=== PATIENT | female | born 1940 | race Caucasian/White ===

== ENCOUNTER 2016-08-10 13:08 | Emergency (ER) | payer MEDICARE ==
[2016-08-10 16:08] LABS: Hematocrit 37 % (35-47); Hemoglobin 12.1 g/dl (12.0-16.0); Mean Corpuscular HGB Conc 33 g/dl (31-36); Mean Corpuscular Hemoglobin 28 pg (27-31); Mean Corpuscular Volume 85 fL (80-97); Mean Platelet Volume 10 um3 (7.4-10.4); Red Blood Count 4.38 10^6/ul (4.0-5.4); Red Cell Distribution Width 14 % (10.5-15); White Blood Count 7.6 10^3/ul (3.5-10.8)
[2016-08-10 16:16] LABS: BUN/Creatinine Ratio 23.3 (8-20); Calcium 9.5 mg/dL (8.6-10.3); EGFR African American 82.3 (>60); Globulin 3.4 g/dL (2-4); Potassium 3.8 mmol/L (3.5-5.0); Total Bilirubin 0.6 mg/dL (0.2-1.0); Total Protein 7.4 g/dL (6.4-8.9)
[2016-08-10 16:18] LABS: Troponin I 0.01 ng/mL (<0.04)
--- NOTE | 2016-08-10 16:24 | RAD ---
INDICATION: Chest pain. COMPARISON: Comparison is made with a prior chest x-ray study from October 01, 2014. TECHNIQUE: A portable view of the chest was obtained. FINDINGS: There is a multilead transvenous cardiac pacemaker present. The heart is within normal limits in size for this portable exam. The lungs are clear. No pleural effusion is seen. The patient is status post right shoulder arthroplasty. IMPRESSION: NO EVIDENCE FOR ACUTE DISEASE.
[2016-08-10] MEDS ORDERED: HYDROcodone/ACETAMIN 5-325 MG* 1 TAB PO ONE (16:49)
[2016-08-10 17:19] VITALS: BP 155/73
--- NOTE | 2016-08-10 17:25 | ED ---
Yareli Burleson Matthew, scribed for Abe Lorenz MD on 08/10/16 at 1551 . HPI Chest Pain - HPI Summary HPI Summary: A 76 y/o female presents to the ED with left sided chest pain since 20:00 that lasted for an hour and has since resolved. The pain radiated to her back and into her throat. She was watching TV when the pain began. She called Dr. Frazier who told the patient she should presented to the ED to have her blood drawn. She slept throughout the night once the pain subsided. She has a Hx of esophageal spasms, and states the pain felt similar to those episodes, but this episoded last much longer. During the episode, she drank diaz bryant and gas-X and after an hour the symptoms subsided. Associated symptoms at the time include bilateral arm numbness and dizziness. She denies SOB. The patient has also been having intermittent dizziness for the past 4 days, which worsens with standing and described as vertigo. She's also been having diffuse headache since a week ago that increased in frequency approximately 3 months ago. She occasionally has numbness arm numbness. The patient had a shoulder replacement of the right shoulder approximately 3 months ago. - History of Current Complaint Chief Complaint: EDChestPainROMI Hx Obtained From: Patient Onset/Duration: Started Days Ago, Atraumatic, Resolved Time of Onset: 20:00 - yesterday Timing: Lasting Hours - 1 Initial Severity: Moderate Current Severity: None Chest Pain Location: Mid Sternal, Left Lateral Chest Pain Radiates: Yes Chest Pain Radiates To:: Back, Neck Aggravating Factor(s): Nothing Alleviating Factor(s): Spontaneous Resolution Associated Signs and Symptoms: Positive: Chest Pain, Headaches, Numbness - bilateral arm, Dizziness. Negative: Shortness of Breath, Swelling, Calf Pain/ Swelling - Allergy/Home Medications Allergies/Adverse Reactions: Allergies Allergy/AdvReac Type Severity Reaction Status Date / Time Adhesive Tape Allergy Intermediate Rash Verified 06/28/15 12:23 Penicillins Allergy Intermediate Rash Verified 06/28/15 12:23 Sulfa Drugs Allergy Intermediate Rash Verified 06/28/15 12:23 Erythromycin Allergy Unknown Unknown Verified 06/28/15 12:23 Reaction Details Meperidine [From Demerol HCl] Allergy Unknown Unknown Verified 06/28/15 12:23 Reaction Details Nortriptyline Allergy Unknown Unknown Verified 06/28/15 12:23 Reaction Details Propoxyphene [From Darvon] Allergy Unknown Unknown Verified 06/28/15 12:23 Reaction Details Tetanus Toxoid Allergy Unknown Unknown Verified 06/28/15 12:23 Reaction Details Acetaminophen Allergy Altered Verified 08/10/16 13:21 [From Oxycodone Mental W/Acetaminophen] Status Beta Adrenergic Blockers Allergy Unknown Verified 06/28/15 12:23 Reaction Details Lidocaine [From Lidoderm] Allergy Unknown Verified 06/28/15 12:23 Reaction Details Oxycodone Allergy Altered Verified 08/10/16 13:21 [From Oxycodone Mental W/Acetaminophen] Status NSAIDs AdvReac 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 PMH/Surg Hx/FS Hx/Imm Hx Endocrine/Hematology History: Reports: Hx Anticoagulant Therapy, Hx Thyroid Disease - HYPOTHYROID Denies: Hx Diabetes Cardiovascular History: Reports: Hx Auto Implanted Cardiovert Defib, Hx Hypertension - on meds, Hx Pacemaker/ICD - 3, Other Cardiovascular Problems/Disorders - SVT Respiratory History: Denies: Hx Asthma, Hx Chronic Obstructive Pulmonary Disease (COPD) GI History: Denies: Hx Ulcer History: Reports: Hx Renal Disease, Other Problems/Disorders - GERD Musculoskeletal History: Denies: Hx Osteoporosis, Other Musculoskeletal History - Cancer History Hx Chemotherapy: No Hx Radiation Therapy: No Infectious Disease History: Denies: Hx Hepatitis, Hx Human Immunodeficiency Virus (HIV), Traveled Outside the [place] in Last 30 Days - Family History Family History: No FHx of breast CA - Social History Alcohol Use: Rare Substance Use Type: Reports: None Smoking Status (MU): Never Smoked Tobacco Review of Systems Constitutional: Negative Eyes: Negative ENT: Negative Positive: Chest Pain Negative: Shortness Of Breath Gastrointestinal: Negative Genitourinary: Negative Positive: Decreased ROM - right shoulder s/p shoulder replacement . Negative: Edema - pedal Skin: Negative Neurological: Other - Dizziness Positive: Headache Psychological: Normal All Other Systems Reviewed And Are Negative: Yes Physical Exam Triage Information Reviewed: Yes Vital Signs On Initial Exam: Initial Vitals Temp Pulse Resp BP Pulse Ox 98.5 F 74 16 139/70 98 08/10/16 13:10 08/10/16 13:10 08/10/16 13:10 08/10/16 13:10 08/10/16 13:10 Vital Signs Reviewed: Yes Appearance: Positive: Well-Appearing, No Pain Distress Skin: Positive: Warm, Skin Color Reflects Adequate Perfusion, Dry Eyes: Positive: EOMI, ESTEFANY ENT: Positive: Normal ENT inspection Neck: Positive: Supple, Nontender Respiratory/Lung Sounds: Positive: Clear to Auscultation, Breath Sounds Present Cardiovascular: Positive: RRR Abdomen Description: Positive: Nontender, Soft Musculoskeletal: Positive: Normal, Strength/ROM Intact Neurological: Positive: Normal, Sensory/Motor Intact, Alert, Oriented to Person Place, Time Psychiatric: Positive: Normal, Affect/Mood Appropriate - Jackson Coma Scale Coma Scale Total: 15 Diagnostics - Vital Signs Vital Signs Temp Pulse Resp BP Pulse Ox 08/10/16 13:36 149/77 08/10/16 13:10 98.5 F 74 16 139/70 98 - Laboratory Lab Results: Lab Results 08/10/16 08/10/16 Range/Units 14:00 14:00 WBC 7.6 (3.5-10.8) 10^3/ul RBC 4.38 (4.0-5.4) 10^6/ul Hgb 12.1 (12.0-16.0) g/dl Hct 37 (35-47) % MCV 85 (80-97) fL MCH 28 (27-31) pg MCHC 33 (31-36) g/dl RDW 14 (10.5-15) % Plt Count 268 (150-450) 10^3/ul MPV 10 (7.4-10.4) um3 Neut % (Auto) 60.8 (38-83) % Lymph % (Auto) 22.0 L (25-47) % [place] % (Auto) 14.9 H (1-9) % Eos % (Auto) 1.7 (0-6) % Baso % (Auto) 0.6 (0-2) % Absolute Neuts (auto) 4.6 (1.5-7.7) 10^3/ul Absolute Lymphs (auto) 1.7 (1.0-4.8) 10^3/ul Absolute Monos (auto) 1.1 H (0-0.8) 10^3/ul Absolute Eos (auto) 0.1 (0-0.6) 10^3/ul Absolute Basos (auto) 0 (0-0.2) 10^3/ul Absolute Nucleated RBC 0 10^3/ul Nucleated RBC % 0 Sodium 137 (133-145) mmol/L Potassium 3.8 (3.5-5.0) mmol/L Chloride 102 (101-111) mmol/L Carbon Dioxide 30 (22-32) mmol/L Anion Gap 5 (2-11) mmol/L BUN 20 (6-24) mg/dL Creatinine 0.86 (0.51-0.95) mg/dL Est GFR ( Amer) 82.3 (>60) Est GFR (Non-Af Amer) 64.0 (>60) BUN/Creatinine Ratio 23.3 H (8-20) Glucose 98 (70-100) mg/dL Calcium 9.5 (8.6-10.3) mg/dL Total Bilirubin 0.60 (0.2-1.0) mg/dL AST 23 (13-39) U/L ALT 17 (7-52) U/L Alkaline Phosphatase 122 H (34-104) U/L Troponin I 0.01 (<0.04) ng/mL Total Protein 7.4 (6.4-8.9) g/dL Albumin 4.0 (3.2-5.2) g/dL Globulin 3.4 (2-4) g/dL Albumin/Globulin Ratio 1.2 (1-3) Result Diagrams: 08/10/16 14:00 08/10/16 14:00 Lab Statement: Any lab studies that have been ordered have been reviewed, and results considered in the medical decision making process. - Radiology CXR Xray Interpretation: No Acute Changes Radiology Interpretation Completed By: Radiologist - EKG 13:36 Cardiac Rate: NL - 79 bpm EKG Interpretation: Dual Paced Rhythm Chest Pain Course/Dx - Course Course Of Treatment: Ms. Davis presented with the C/O CP ast evening lasting about an hour. It felt to her like the pain she has had in the past with esophageal spasm only longer although she does admit that she waited a lot longer before taking the Gas-X which usually helps her spasm. She had no associated symptoms and has had no pain today. Her W/U for CP here was negative and I will send her home to F/U with Dr. Frazier. Her shoulder has been bothering her for weeks and she could not tolerate the percocet she had been prescribed by her surgeon because of hallucinations and ultram did not help. I will try hydrocodone and she has an appointment with the surgeon tomorrow. - Diagnoses Provider Diagnoses: Chest pain - Provider Notifications Discussed Care Of Patient With: Dr. Lomeli (Cardologist) at 16:31 -- Notified of patient's history. Discharge - Discharge Plan Condition: Stable Disposition: HOME Patient Education Materials: Chest Pain (ED) Referrals: Piyush Frazier MD [Medical Doctor] - 3 Days Additional Instructions: Please follow-up with Dr. Frazier in 3 days. The documentation as recorded by the Yareli velazquez Matthew accurately reflects the service I personally performed and the decisions made by me, Abe Lorenz MD.
== END 2016-08-10 17:20 | disposition home or self-care (01) ==
LOC: ED 13:08
DX: R07.9 Chest pain, unspecified (principal); M25.511 Pain in right shoulder; Z88.0 Allergy status to penicillin; Z88.2 Allergy status to sulfonamides; E03.9 Hypothyroidism, unspecified; Z95.810 Presence of automatic (implantable) cardiac defibrillator; Z79.01 Long term (current) use of anticoagulants; K21.9 Gastro-esophageal reflux disease without esophagitis
CPT/HCPCS: 36415; 71010; 80053; 84484; 85025; 93005; 99283

== ENCOUNTER 2016-10-11 14:04 | Emergency (ER) | payer MEDICARE ==
[2016-10-11 14:32] VITALS: BP 112/75
--- NOTE | 2016-10-11 15:01 | UC ---
Upper Extremity HPI - HPI Summary HPI Summary: Irritated rash in R axillary region for about a week. Had similar rash under breasts last fall after surgery, also had one in low abdominal fold in mid Aug. Was Rx clotrimazole in Aug, but states it didn't help with abdominal rash. Denies fever, drainage, or other new symptoms. Has had very limited ROM in R shoulder for more than 10 years, still cannot lift arm at all since shoulder replacement in April 2016. Does not use deodorant, tries powder sometimes. Tried gold liu powder when rash started s effect. - History of Current Complaint Chief Complaint: WOLFGANGkin Stated Complaint: RASH COMPLAINT Time Seen by Provider: 10/11/16 14:26 Hx Obtained From: Patient ?: No Onset/Duration: Gradual Onset, Lasting Days Severity Initially: Mild Severity Currently: Mild Location Of Pain: Is Discrete @ Character: Dull, Burning Alleviating Factor(s): Nothing Related History: Immobility - Allergies/Home Medications Allergies/Adverse Reactions: Allergies Allergy/AdvReac Type Severity Reaction Status Date / Time Adhesive Tape Allergy Intermediate Rash Verified 06/28/15 12:23 Penicillins Allergy Intermediate Rash Verified 06/28/15 12:23 Sulfa Drugs Allergy Intermediate Rash Verified 06/28/15 12:23 Erythromycin Allergy Unknown Unknown Verified 06/28/15 12:23 Reaction Details Meperidine [From Demerol HCl] Allergy Unknown Unknown Verified 06/28/15 12:23 Reaction Details Nortriptyline Allergy Unknown Unknown Verified 06/28/15 12:23 Reaction Details Propoxyphene [From Darvon] Allergy Unknown Unknown Verified 06/28/15 12:23 Reaction Details Tetanus Toxoid Allergy Unknown Unknown Verified 06/28/15 12:23 Reaction Details Beta Adrenergic Blockers Allergy Unknown Verified 06/28/15 12:23 Reaction Details Lidocaine [From Lidoderm] Allergy Unknown Verified 06/28/15 12:23 Reaction Details Oxycodone Allergy Altered Verified 08/10/16 13:21 [From Oxycodone Mental W/Acetaminophen] Status NSAIDs AdvReac 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 Home Medications: Home Medications Hypromellose (Ophth) [Systane Overnight Therapy] 1 applic OPHTHALMIC BEDTIME 09/24 [History Confirmed 10/11/16] Light Mineral Oil-Mineral Oil [Retaine Mgd 0.5-0.5 %] 1 drop OPHTHALMIC QID 09/24 [History Confirmed 10/11/16] PMH/Surg Hx/FS Hx/Imm Hx Endocrine History Of: Reports: Thyroid Disease - HYPOTHYROID Denies: Diabetes Cardiovascular History Of: Reports: Cardiac Disorders - TACHYCARDIA; A-FIB, Hypertension - on meds, Pacemaker/ICD - 09/30/14 Respiratory History Of: Denies: COPD, Asthma GI/ History Of: Reports: Renal Disease Denies: Ulcer Cancer History Of: Denies: Breast Cancer Other History Of: Anticoagulant Therapy - Surgical History Surgical History: None Surgery Procedure, Year, and Place: PACEMAKER-; HYSTERECTOMY; TURMOR REMOVED RIGHT FEMOR; RIGHT PARTIAL SHOULDER REPLACEMENT. - Family History Known Family History: Positive: Unknown Family History: No FHx of breast [place] - Social History Alcohol Use: Rare Substance Use Type: None Smoking Status (MU): Never Smoked Tobacco - Immunization History Most Recent Tetanus Shot: unknown Review of Systems Constitutional: Negative Skin: Rash Eyes: Negative ENT: Negative Respiratory: Negative Cardiovascular: Negative Gastrointestinal: Negative Genitourinary: Negative Motor: Negative Neurovascular: Negative Musculoskeletal: Negative Neurological: Negative Psychological: Negative All Other Systems Reviewed And Are Negative: Yes Physical Exam Triage Information Reviewed: Yes Appearance: Well-Appearing, No Pain Distress, Well-Nourished Vital Signs: Initial Vital Signs Temp 98.6 F 10/11/16 14:18 Pulse 81 10/11/16 14:18 Resp 16 10/11/16 14:18 BP 112/75 10/11/16 14:18 Pulse Ox 99 10/11/16 14:18 Vital Signs Reviewed: Yes Eye Exam: Normal Eyes: Positive: Conjunctiva Clear ENT Exam: Normal ENT: Positive: Normal ENT inspection, Hearing grossly normal, Pharynx normal, TMs normal Dental Exam: Normal Neck exam: Normal Neck: Positive: Supple, Nontender, No Lymphadenopathy Respiratory Exam: Normal Respiratory: Positive: Chest non-tender, Lungs clear, Normal breath sounds, No respiratory distress, No accessory muscle use Cardiovascular Exam: Normal Cardiovascular: Positive: RRR, No Murmur Musculoskeletal: Positive: No Edema, ROM Limited @ - R shoulder Neurological Exam: Normal Psychological Exam: Normal Skin Exam: Other - red confluent area R axilla in skin fold with satellite lesions Upper Extremity Course/Dx - Differential Dx/Diagnosis Provider Diagnoses: R axillary skin candidiasis Discharge - Discharge Plan Condition: Stable Disposition: HOME Prescriptions: Nystatin CREAM* 1 applic TOPICAL BID #1 tube Patient Education Materials: Skin Yeast Infection (ED) Referrals: Jojo Clark MD [Primary Care Provider] - Additional Instructions: Look for clear improvement in your rash in the next week. If it is not getting better, or if it is getting worse, please see your primary care provider for a recheck.
== END 2016-10-11 15:17 | disposition home or self-care (01) ==
LOC: UCEAST 14:04
DX: B37.2 Candidiasis of skin and nail (principal); E03.9 Hypothyroidism, unspecified; R00.0 Tachycardia, unspecified; I48.91 Unspecified atrial fibrillation; Z79.01 Long term (current) use of anticoagulants; Z95.0 Presence of cardiac pacemaker; I10 Essential (primary) hypertension; Z96.611 Presence of right artificial shoulder joint; Z88.1 Allergy status to other antibiotic agents; Z88.5 Allergy status to narcotic agent; Z88.6 Allergy status to analgesic agent; Z88.0 Allergy status to penicillin; Z88.2 Allergy status to sulfonamides; Z88.7 Allergy status to serum and vaccine
CPT/HCPCS: 99212; G0463

== ENCOUNTER 2017-01-07 13:53 | Emergency (ER) | payer MEDICARE ==
[2017-01-07 14:12] VITALS: BP 128/80
--- NOTE | 2017-01-07 22:35 | UC ---
Skin Complaint HPI - HPI Summary HPI Summary: 76 YEAR OLD FEMALE PRESENTS WITH COMPLAINS OF RASH UNDER RIGHT ARM. - History of Current Complaint Chief Complaint: UCBackPain Time Seen by Provider: 01/07/17 14:27 Stated Complaint: WOUND UNDER ARM LOW BACK PAIN Pain Intensity: 0 Pain Scale Used: 0-10 Numeric - Allergy/Home Medications Allergies/Adverse Reactions: Allergies Allergy/AdvReac Type Severity Reaction Status Date / Time Adhesive Tape Allergy Intermediate Rash Verified 01/07/17 14:13 Penicillins Allergy Intermediate Rash Verified 01/07/17 14:13 Sulfa Drugs Allergy Intermediate Rash Verified 01/07/17 14:13 Erythromycin Allergy Unknown Unknown Verified 01/07/17 14:13 Reaction Details Meperidine [From Demerol HCl] Allergy Unknown Unknown Verified 01/07/17 14:13 Reaction Details Nortriptyline Allergy Unknown Unknown Verified 01/07/17 14:13 Reaction Details Propoxyphene [From Darvon] Allergy Unknown Unknown Verified 01/07/17 14:13 Reaction Details Tetanus Toxoid Allergy Unknown Unknown Verified 01/07/17 14:13 Reaction Details Beta Adrenergic Blockers Allergy Unknown Verified 01/07/17 14:13 Reaction Details Lidocaine [From Lidoderm] Allergy Unknown Verified 01/07/17 14:13 Reaction Details Oxycodone Allergy Altered Verified 01/07/17 14:13 [From Oxycodone Mental W/Acetaminophen] Status NSAIDs AdvReac Severe RENAL Verified 01/07/17 14:13 DISEASE Review of Systems Skin: Rash - UNDER RIGHT ARM All Other Systems Reviewed And Are Negative: Yes PMH/Surg Hx/FS Hx/Imm Hx Other History Of: Anticoagulant Therapy - Surgical History Surgical History: Yes Surgery Procedure, Year, and Place: PACEMAKER-1997/2012/2014; HYSTERECTOMY; TURMOR REMOVED RIGHT FEMOR; RIGHT PARTIAL SHOULDER REPLACEMENT. - Family History Known Family History: Positive: Unknown Family History: No FHx of breast CA - Social History Alcohol Use: Rare Substance Use Type: None Smoking Status (MU): Never Smoked Tobacco - Immunization History Most Recent Tetanus Shot: unknown Physical Exam Triage Information Reviewed: Yes Vital Signs: Initial Vital Signs Temp 36.7 C 01/07/17 14:08 Pulse 85 01/07/17 14:08 Resp 18 01/07/17 14:08 BP 128/80 01/07/17 14:08 Pulse Ox 95 06/30/17 14:08 Vital Signs Reviewed: Yes Eye Exam: Normal ENT Exam: Normal Dental Exam: Normal Neck exam: Normal Neck: Positive: 1 Respiratory Exam: Normal Cardiovascular Exam: Normal Abdominal Exam: Normal Musculoskeletal Exam: Normal Neurological Exam: Normal Psychological Exam: Normal Skin: Positive: rashes - ABRASION/SKIN EXCORIATION UNDER RIGHT ARM Course/Dx - Differential Diagnoses - Skin Complaint Differential Diagnoses: Eczema, Urticaria - Diagnoses Provider Diagnoses: RIGHT SKIN ABRASION Discharge - Discharge Plan Condition: Stable Disposition: HOME Prescriptions: DOXYcycline CAP(*) [DOXYcycline 100MG CAP(*)] 100 mg PO BID #14 cap Methocarbamol [Robaxin-750 MG TAB] 750 mg PO Q8HR PRN #90 tab PRN Reason: Spasms - Back Mupirocin 2% OINT* [Bactroban 2 % Oint*] 1 applic TOPICAL BID #1 tube Patient Education Materials: Acute Rash (ED) Referrals: Jojo Clark MD [Primary Care Provider] -
== END 2017-01-07 14:55 | disposition home or self-care (01) ==
LOC: UCEAST 13:53
DX: S40.811A Abrasion of right upper arm, initial encounter (principal); Z88.0 Allergy status to penicillin; Z88.7 Allergy status to serum and vaccine; Z88.2 Allergy status to sulfonamides; Z88.4 Allergy status to anesthetic agent; Z88.5 Allergy status to narcotic agent; Z95.0 Presence of cardiac pacemaker; Z96.611 Presence of right artificial shoulder joint
CPT/HCPCS: 99212; G0463

== ENCOUNTER 2017-07-02 12:57 | Emergency (ER) | payer MEDICARE ==
--- OUTSIDE RECORDS SUMMARY | 2017-07-02 13:52 | XMS REPORT ---
:1940 External Reference #:[id number] Author Organization [facility] Address [address] [place] [address] Phone [phone] Care Team Providers Name Role Phone Jojo Clark M.D. Primary Care Physician Unavailable Payers Type Date Identification Numbers Payment Provider Subscriber Medicare Primary Effective: Policy Number: Medicare - NGS Kina Davis 2004 [id number] Onset: 2007 PayID: [id number] [address] [place] [address] Medigap Part B Onset: 2007 Policy Number: [id number] [facility] Kina Davis PayID: [id number] [address] [place] [address] Problems Date Description Provider Status Onset: Atrial fibrillation Active Onset: Diffuse spasm of esophagus Active Onset: Hypothyroidism Active Onset: Anxiety Active Onset: Hypercholesterolemia Active Onset: Methicillin resistant Staphylococcus Active aureus infection Onset: Essential hypertension Active Onset: 11/11/2014 Fuchs' corneal dystrophy Pat Arteaga Active O.DKaryn Onset: 11/16/2014 Chronic allergic conjunctivitis Pat Arteaga Active O.DKaryn Onset: 11/16/2014 Tear film insufficiency Pat Arteaga Active O.DKaryn Onset: 11/16/2014 Hereditary corneal dystrophy Pat Arteaga Active O.DKaryn Onset: 11/18/2014 Pseudophakia Pat Arteaga Active O.DKaryn Onset: 11/28/2014 Minor opacity of cornea Pat Arteaga Active O.DKaryn Onset: 08/22/2015 Strabismic amblyopia Harleen Hand O.Garrett Onset: 03/08/2016 Punctate keratitis Harleen Hand OMarilyn Onset: 03/08/2016 Dystrophy of anterior cornea Harleen Hand O.D. Onset: 03/29/2016 Corneal opacity Harleen Hand O.Garrett Onset: 08/14/2016 Angular blepharoconjunctivitis Devika Grajeda O.D. 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 ETOH Use Denies alcohol use Smoking Patient has never smoked Daily Caffeine Does Not Consume Caffeine Allergies, Adverse Reactions, Alerts Date Description Reaction Status Severity Comments 11/11/2014 Penicillins active 11/11/2014 Sulfa Antibiotics active 11/11/2014 Erythromycin active 11/11/2014 Beta Adrenergic Blockers active 11/11/2014 Ibuprofen active 11/11/2014 Demerol active 11/11/2014 Latex active 11/11/2014 Restasis active 11/11/2014 Diovan active 11/11/2014 Codeine active 11/28/2014 Tape active 08/14/2016 Oxycodone active Medications Medication Date Status Form Strength Qnty SIG Indications Ordering Provider Systane 11/17/ Active Ointment every Pat J. Nighttime 2014 Arnoldo Arteaga Valacyclovir / Active Tablets 500mg Varn, HCL nne NOTEMAN Levothyroxine / Active Tablets 100mcg Cotton, Sodium Jojo M.Garrett Atorvastatin / Active Tablets 80mg Varn, Calcium e NOTEMAN Paroxetine HCL / Active Tablets 40mg Cotton, 0000 Jojo M.Garrett Atenolol / Active Tablets 25mg Frazier, 0000 Piyush M.DKaryn Coumadin / Active Tablets 5mg Qing, 0000 Tania BLANCO Multi Vitamin 00/ Active Tablets Unknown Daily 0000 Vitamin D / Active Tablets 1000Unit every Unknown 0000 day Famotidine / Active Tablets 40mg Butcher, 0000 Harvinder Ascencion, M.D. Systane / Active Gel 0.4-0.3% 1 drop Unknown 0000 both eyes twice a day Systane 12/12/ Hx Gel 0.4-0.3% every 3 Pat Mina 2017 - hours [place], 06/29/ O.D. 2017 Ciprofloxacin 08/14/ Hx Solution 0.3% 5ml 1 drop H10.523 Devika C. HCL 2017 - 3x/day Oltz, O.D. 08/24/ for 7 2016 days both eyes Lotemax 08/14/ Hx Ointment 0.5% 3.500g apply to H16.143 Devika CKaryn 2017 - m lower Nicci, O.D. 08/24/ eyelids 2016 and lashes at night for 1 week Retaine [facility] 03/25/ Hx Solution 0.5% Pat Mina 2015 - [place], 12/09/ O.D. 2016 Tobramycin-Dexa 11/11/ Hx Suspension 0.3-0.1% 10ml 1 drop 372.14 Pat Mina methasone 2014 - [place], 11/27/ both O.D. 2014 eyes Omeprazole / Hx Capsules DR 20mg Eduardo, 0000 - Jojo 10/12/ M.DKaryn 2016 Calcium 600 / Hx Tablets 600mg Unknown - 2015 Co Q 10 / Hx Capsules 60mg Unknown - 2015 Medications Administered in Office Medication Date Status Form Strength Qnty SIG Indications Ordering Provider Crizal Administered Injection Diallo 4 Silva, A.B.O. Vital Signs Date Vital Result Comment 03/29/2016 BP Systolic 110 mmHg BP Diastolic 65 mmHg Heart Rate 77 /min Respiratory Rate 16 /min 03/08/2016 BP Systolic 130 mmHg BP Diastolic 73 mmHg Heart Rate 70 /min Respiratory Rate 16 /min Results Description No Information Procedures Date CPT Code Description Status 06/20/2017 65943 Rescheduled Appointment Completed 12/15/2016 13035 Determination Of Refractive State Completed 10/15/2016 52128 Est Patient Comprehensive Exam Completed 08/14/2016 09004 Est Patient Intermediate Exam Completed 04/14/2016 45682 Est Patient Intermediate Exam Completed 03/29/2016 55685 Close Lacrimal Punctum, Plug Completed 03/08/2016 51834 Est Patient Comprehensive Exam Completed 03/08/2016 21403 Close Lacrimal Punctum, Plug Completed 08/22/2015 27050 Est Patient Comprehensive Exam Completed 02/19/2015 43391 Determination Of Refractive State Completed 02/19/2015 54391 Est Patient Comprehensive Exam Completed 11/11/2014 91894 Est Patient Intermediate Exam Completed 09/13/2014 25824 Est Patient Intermediate Exam Completed 09/13/2014 51940 Close Lacrimal Punctum, Plug Completed 09/13/2014 32288 Close Lacrimal Punctum, Plug Completed 08/23/2014 83952 Close Lacrimal Punctum, Plug Completed 08/23/2014 59068 Close Lacrimal Punctum, Plug Completed 08/23/2014 19988 Est Patient Intermediate Exam Completed 08/17/2014 15003 Est Patient Intermediate Exam Completed 08/10/2014 90449 Contact Lens For Treatment Of Ocular Surface Disease Completed 08/10/2014 11948 Contact Lens For Treatment Of Ocular Surface Disease Completed 08/10/2014 62785 Est Patient Intermediate Exam Completed 06/29/2014 77429 Contact Lens For Treatment Of Ocular Surface Disease Completed 06/29/2014 99635 Contact Lens For Treatment Of Ocular Surface Disease Completed 06/22/2014 34381 Est Patient Intermediate Exam Completed 06/22/2014 77199 Contact Lens For Treatment Of Ocular Surface Disease Completed 06/22/2014 34195 Contact Lens For Treatment Of Ocular Surface Disease Completed 06/10/2014 78703 Contact Lens For Treatment Of Ocular Surface Disease Completed 06/10/2014 36356 Contact Lens For Treatment Of Ocular Surface Disease Completed 06/03/2014 49957 Est Patient Intermediate Exam Completed 06/03/2014 607 Kimtech Wipes Completed 06/01/2014 47954 Contact Lens For Treatment Of Ocular Surface Disease Completed 06/01/2014 81633 Contact Lens For Treatment Of Ocular Surface Disease Completed 04/19/2014 31596 Determination Of Refractive State Completed 04/19/2014 88847 Est Patient Comprehensive Exam Completed 02/27/2013 48945 Remove Secondary Cataract, Laser (Yag) Completed 01/29/2013 22981 Est Patient Comprehensive Exam Completed 09/01/2012 40487 Est Patient Intermediate Exam Completed 08/02/2012 86191 Determination Of Refractive State Completed 08/02/2012 94310 Est Patient Comprehensive Exam Completed 01/19/2012 48530 Determination Of Refractive State Completed 01/19/2012 08797 Est Patient Intermediate Exam Completed 08/06/2011 79658 Est Patient Intermediate Exam Completed 07/21/2011 01960 Est Patient Comprehensive Exam Completed 07/21/2011 42064 Determination Of Refractive State Completed 06/28/2011 79561 Est Patient Intermediate Exam Completed 09/18/2010 50698 Est Patient Comprehensive Exam Completed 09/18/2010 53533 Close Lacrimal Punctum, Plug Completed 09/18/2010 519 Eyeglass Seed Packer Completed 02/27/2010 35052 Est Patient Intermediate Exam Completed 08/29/2009 22653 Determination Of Refractive State Completed 08/15/2009 52616 Est Patient Intermediate Exam Completed 12/27/2008 519 Eyeglass Seed Packer Completed 06/17/2008 516 Cod Liver Oil Tablets Completed 01/04/2008 19144 Est Patient Intermediate Exam Completed 11/01/2007 87674 Extracapsular Cataract Extraction W/Intraocular Lens Completed 10/19/2007 57154 Ophthalmic Biometry Completed 10/18/2007 54491 Extracapsular Cataract Extraction W/Intraocular Lens Completed 10/11/2007 84041 Ophthalmic Biometry Completed 08/30/2007 28546 Est Patient Comprehensive Exam Completed 08/26/2006 15045 Est Patient Comprehensive Exam Completed 08/26/2006 09789 Determination Of Refractive State Completed 12/29/2004 80567 Determination Of Refractive State Completed 12/29/2004 44879 Est Patient Comprehensive Exam Completed 01/23/2004 92028 Est Patient Intermediate Exam Completed 12/02/2003 28245 Fundus Photography With Interpretation And Report Completed 12/02/2003 84805 Est Patient Comprehensive Exam Completed 11/25/2003 113 Crizal Completed 11/13/2003 67015 Determination Of Refractive State Completed 11/13/2003 07706 Est Patient Comprehensive Exam Completed Encounters Type Date Location Provider CPT E/M Dx Office Visit 12/15/2016 Jose Miguel Baron MD, Pat Arteaga, 12669 H16.143 3:20p pc O.D. H18.59 Z96.1 H53.032 Office Visit 03/29/2016 1:20p Jose Miguel Baron MD, Pat Arteaga, 44646 H16.141 pc O.D. H17.89 Z96.1 Office Visit 11/28/2014 11:40a Jose Miguel Baron MD, Pat Arteaga, 03680 375.15 pc O.D. 371.50 371.01 Office Visit 11/18/2014 10:10a Jose Miguel Baron MD, Pat Arteaga, 71669 375.15 pc O.D. 372.14 371.50 V43.1 Office Visit 11/16/2014 1:00p Jose Miguel Baron MD, Pat Arteaga, 38678 372.14 pc O.D. 375.15 371.50 Office Visit 10/03/2014 11:00a Jose Miguel Baron MD, Pat Arteaga, 52774 371.57 pc O.D. 375.15 Office Visit 09/02/2014 10:40a Jose Miguel Baron MD, Pat Arteaga, 35010 371.57 pc O.D. Office Visit 07/15/2014 9:30a Jose Miguel Baron MD, Serg Roman.Garrett 10560 371.42 pc Office Visit 07/08/2014 11:15a Jose Miguel Baron MD, Devika Grajeda O.DKaryn 05334 371.42 pc Office Visit 06/29/2014 9:45a Jose Miguel Baron MD, Devika Grajeda O.D. 06552 371.42 pc Office Visit 06/15/2014 1:00p Jose Miguel Baron MD, Serg Roman.Garrett 99943 371.42 pc Office Visit 06/10/2014 1:15p Jose Miguel Baron MD, Serg Roman.Garrett 77072 371.42 pc Office Visit 06/01/2014 1:00p Jose Miguel Baron MD, Serg Roman.Garrett 54938 371.42 pc Office Visit 08/13/2011 3:30p Jose Miguel Baron MD, Pat Arteaga, 43381 372.30 pc O.D. Office Visit 01/04/2011 12:10p Jose Miguel Baron MD, Pat Arteaga, 79273 375.15 pc O.D. Office Visit 11/17/2010 1:30p Jose Miguel Baron MD, Esequiel Samaniego M.D. 50454 379.00 pc Office Visit 10/02/2010 2:10p Jose Miguel Baron MD, Pat Arteaga, 83664 375.15 pc O.D. Office Visit 08/29/2009 1:10p Jose Miguel Baron MD, Pat Arteaga, 07527 371.57 pc O.D. Office Visit 05/26/2009 1:30p Jose Miguel Baron MD, Abe Brown 00634 375.15 pc O.D. Office Visit 12/27/2008 10:00a Jose Miguel Baron MD, Pat Arteaga, 88042 373.12 pc O.D. Office Visit 06/17/2008 1:00p Jose Miguel Baron MD, Jose Miguel Baron M.D. 43729 375.15 pc Office Visit 05/23/2008 2:15p Jose Miguel Baron MD, Jose Miguel Baron M.D. 66610 370.20 pc Office Visit 05/07/2008 11:15a Jose Miguel Baron MD, Jose Miguel Baron M.D. 71845 375.15 pc Office Visit 01/11/2008 12:10p Jose Miguel Baron MD, Pat Arteaga, 13526 373.12 pc O.D. Office Visit 10/11/2007 10:15a Jose Miguel Baron MD, Jose Miguel Baron M.D. 38173 366.16 Plan of Care 07/01/2017 - Pat Arteaga O.D.H16.143 Punctate keratitis, bilateralComments:Smoking can increase the risk of developing or worsening any eye related disease, as well as affect your overall health. If you are a smoker , we strongly recommend that you quit.If you are not a smoker, we strongly recommend that you do not start. use gel drops 4 x day and Nighttime ointment at bedtime use a hot compress for 5-10 minutes with gentle lid massage at least 1 x dayFollow up:6 Month Follow Up At your next visit, we are not planning to dilate your eyes. However, if you haveany changes in your vision or new symptoms , there are certain situations that require us to dilate your eyes. If Dr. Arteaga requests any additional testing, that may require extra time. If you have any questions before your next appointment, please call our office at .H04.123 Dry eye syndrome of bilateral lacrimal vwyafpG14.59 Other hereditary corneal [id number] Presence of intraocular lensComments:The artificial lens implants in both eyes appear to be stable at this time.H53.032 Strabismic amblyopia, left eye
--- NOTE | 2017-07-02 14:20 | RAD ---
Indication: Right shoulder injury. 5 views of the right shoulder demonstrates right shoulder prosthesis in place. No loosening or hardware failure is noted. There is diffuse osteopenia noted. IMPRESSION: Right shoulder replacement in satisfactory position. Diffuse osteopenia is noted.
[2017-07-02 16:03] VITALS: BP 140/66
--- NOTE | 2017-07-02 17:25 | ED ---
Upper Extremity Pain - HPI Summary HPI Summary: Patient presents to the ED with CC of right shoulder pain s/p fall. Fall was witnessed and she denies LOC. at bedside. She has had 3 previous surgeries to the shoulder with most recently a backwards shoulder surgery. She notes to 5/10 pain and is concerned over a fracture. Complete shoulder replacement hardware to the right shoulder. She remains in PT and is unable to abduct the shoulder past 90 degrees at baseline. She is in NAD and takes tylenol for pain. - History of Current Complaint Chief Complaint: EDExtremityUpper Stated Complaint: FALL SHOULDER INJURY Time Seen by Provider: 07/02/17 14:27 Hx Obtained From: Patient Mechanism Of Injury: Blunt Trauma Onset/Duration: Started Hours Ago Timing: Constant Severity Initially: Mild Severity Currently: Mild Pain Location: Shoulder Character: Aching Aggravating Factor(s): Movement Alleviating Factor(s): Rest, Ice Associated Signs & Symptoms: Positive: Negative Related History: Dominant Hand Right, Immobility - Risk Factors DVT Risk Factors: Recent Surgery Septic Arthritis Risk Factor: Negative - Allergies/Home Medications Allergies/Adverse Reactions: Allergies Allergy/AdvReac Type Severity Reaction Status Date / Time Adhesive Tape Allergy Intermediate Rash Verified 01/07/17 14:13 Penicillins Allergy Intermediate Rash Verified 01/07/17 14:13 Sulfa Drugs Allergy Intermediate Rash Verified 01/07/17 14:13 Erythromycin Allergy Unknown Unknown Verified 01/07/17 14:13 Reaction Details Meperidine [From Demerol HCl] Allergy Unknown Unknown Verified 01/07/17 14:13 Reaction Details Nortriptyline Allergy Unknown Unknown Verified 01/07/17 14:13 Reaction Details Propoxyphene [From Darvon] Allergy Unknown Unknown Verified 01/07/17 14:13 Reaction Details Tetanus Toxoid Allergy Unknown Unknown Verified 01/07/17 14:13 Reaction Details Beta Adrenergic Blockers Allergy Unknown Verified 01/07/17 14:13 Reaction Details Lidocaine [From Lidoderm] Allergy Unknown Verified 01/07/17 14:13 Reaction Details Oxycodone Allergy Altered Verified 01/07/17 14:13 [From Oxycodone Mental W/Acetaminophen] Status NSAIDs AdvReac Severe RENAL Verified 01/07/17 14:13 DISEASE PMH/Surg Hx/FS Hx/Imm Hx Previously Healthy: Yes Endocrine/Hematology History: Reports: Hx Anticoagulant Therapy, Hx Thyroid Disease - HYPOTHYROID Denies: Hx Diabetes Cardiovascular History: Reports: Hx Auto Implanted Cardiovert Defib, Hx Hypertension - on meds, Hx Pacemaker/ICD - /, Other Cardiovascular Problems/Disorders - SVT Respiratory History: Denies: Hx Asthma, Hx Chronic Obstructive Pulmonary Disease (COPD) GI History: Denies: Hx Ulcer History: Reports: Hx Renal Disease, Other Problems/Disorders - GERD Musculoskeletal History: Denies: Hx Osteoporosis, Other Musculoskeletal History - Cancer History Hx Chemotherapy: No Hx Radiation Therapy: No - Surgical History Surgery Procedure, Year, and Place: PACEMAKER-1997/2012/2014; HYSTERECTOMY; TURMOR REMOVED RIGHT FEMOR; RIGHT PARTIAL SHOULDER REPLACEMENT. Infectious Disease History: No Infectious Disease History: Reports: Hx Shingles Denies: Hx Hepatitis, Hx Human Immunodeficiency Virus (HIV), Traveled Outside the [place] in Last 30 Days - Family History Known Family History: Positive: Unknown Family History: No FHx of breast CA - Social History Occupation: Unemployed Lives: With Family Alcohol Use: Rare Hx Substance Use: No Substance Use Type: Reports: None Hx Tobacco Use: No Smoking Status (MU): Never Smoked Tobacco Review of Systems Constitutional: Negative Negative: Fever, Chills, Fatigue Eyes: Negative Cardiovascular: Negative Gastrointestinal: Negative Genitourinary: Negative Positive: no symptoms reported, see HPI Positive: Arthralgia - right shoulder Skin: Negative Neurological: Negative All Other Systems Reviewed And Are Negative: Yes Physical Exam Triage Information Reviewed: Yes Vital Signs On Initial Exam: Initial Vitals Temp Pulse Resp BP Pulse Ox 97.2 F 85 17 127/69 96 07/02/17 13:10 07/02/17 13:10 07/02/17 13:10 07/02/17 13:10 07/02/17 13:10 Vital Signs Reviewed: Yes Appearance: Positive: Well-Appearing, No Pain Distress, Well-Nourished Skin: Positive: Skin Color Reflects Adequate Perfusion Head/Face: Positive: Normal Head/Face Inspection Eyes: Positive: EOMI, ESTEFANY, Conjunctiva Clear Neck: Positive: No Lymphadenopathy Respiratory/Lung Sounds: Positive: Clear to Auscultation, Breath Sounds Present Cardiovascular: Positive: RRR, Pulses are Symmetrical in both Upper and Lower Extremities Musculoskeletal: Positive: Pain @ - right shoulder/ unable to abduct past 90 degrees at baseline. no worsening today. Neurological: Positive: Speech Normal Psychiatric: Positive: Normal, Affect/Mood Appropriate AVPU Assessment: Alert - Jackson Coma Scale Coma Scale Total: 15 Diagnostics - Vital Signs Vital Signs Temp Pulse Resp BP Pulse Ox 07/02/17 16:02 98.1 F 75 18 140/66 100 07/02/17 13:10 97.2 F 85 17 127/69 96 - Laboratory Lab Statement: Any lab studies that have been ordered have been reviewed, and results considered in the medical decision making process. Course/Dx - Course Course Of Treatment: IMPRESSION: Right shoulder replacement in satisfactory position. Diffuse osteopenia is. noted. She notes to pain in the right shoulder but denies worsening ROM issues. She states she is OK to follow up with her PCP and ortho physician in [place]. Denies other symptoms at this time. I have recommended not using her sling d/t frozen shoulder and i have encouraged shoulder exercises. - Diagnoses Differential Diagnosis/HQI/PQRI: Positive: Fracture (Open), Fracture (Closed) Provider Diagnoses: Traumatic injury of shoulder Discharge - Discharge Plan Condition: Stable Disposition: HOME Referrals: Jojo Clark MD [Primary Care Provider] - Additional Instructions: Please follow up with your orthopedist Tylenol 650mg three times daily for pain
== END 2017-07-02 16:02 | disposition home or self-care (01) ==
LOC: ED 12:57
DX: S49.91XA Unspecified injury of right shoulder and upper arm, initial encounter (principal); W19.XXXA Unspecified fall, initial encounter; Y93.9 Activity, unspecified; Y92.9 Unspecified place or not applicable; Y99.9 Unspecified external cause status; M85.811 Other specified disorders of bone density and structure, right shoulder; Z96.611 Presence of right artificial shoulder joint; Z88.1 Allergy status to other antibiotic agents; Z88.3 Allergy status to other anti-infective agents; Z88.2 Allergy status to sulfonamides; Z88.7 Allergy status to serum and vaccine; Z88.8 Allergy status to other drugs, medicaments and biological substances
CPT/HCPCS: 99281

== ENCOUNTER 2017-11-02 09:12 | Emergency (ER) | payer MEDICARE ==
[2017-11-02 09:36] VITALS: BP 147/85
--- NOTE | 2017-11-02 10:30 | ED ---
GI/ HPI - HPI Summary HPI Summary: 77 yo WF h/o afib s/p ablation, on coumadin, PPM, c/p rectal bleed x 2 days 4-6 episodes per day, recent colitis and needs blood test for C diff but never got it. Toilet blood full of blood at times associated with mild dizziness and weakness - History of Current Complaint Chief Complaint: UCGI Time Seen by Provider: 11/02/17 10:16 Stated Complaint: RECTAL BLEEDING Hx Obtained From: Patient Onset/Duration: Started Days Ago Timing: Lasting Days Severity: Moderate Current Severity: Moderate Vaginal Bleeding Description: Bright Red, Brownish-Red Pain Intensity: 3 Associated Signs and Symptoms: Positive: Dizziness, Weakness - Allergy/Home Medications Allergies/Adverse Reactions: Allergies Allergy/AdvReac Type Severity Reaction Status Date / Time adhesive tape Allergy Rash Verified 11/02/17 09:50 Beta-Blockers Allergy Unknown Verified 11/02/17 09:50 (Beta-Adrenergic Bloc Reaction Details erythromycin base Allergy Unknown Verified 11/02/17 09:50 Reaction Details lidocaine [From Lidoderm] Allergy Unknown Verified 11/02/17 09:50 Reaction Details meperidine [From Demerol] Allergy Unknown Verified 11/02/17 09:50 Reaction Details nortriptyline Allergy Unknown Verified 11/02/17 09:50 Reaction Details NSAIDS (Non-Steroidal Allergy See Comment Verified 11/02/17 09:50 Anti-Inflamma oxycodone Allergy Altered Verified 11/02/17 09:50 Mental Status Penicillins Allergy Rash Verified 11/02/17 09:50 propoxyphene [From Darvon] Allergy Unknown Verified 11/02/17 09:50 Reaction Details Sulfa (Sulfonamide Allergy Rash Verified 11/02/17 09:50 Antibiotics) tetanus toxoid, adsorbed Allergy Unknown Verified 11/02/17 09:50 Reaction Details PMH/Surg Hx/FS Hx/Imm Hx Previously Healthy: Yes Endocrine/Hematology History: Reports: Hx Anticoagulant Therapy, Hx Thyroid Disease - hypo Denies: Hx Diabetes Cardiovascular History: Reports: Hx Auto Implanted Cardiovert Defib, Hx Hypertension, Hx Pacemaker/ICD - 3/, Other Cardiovascular Problems/ Disorders - SVT Respiratory History: Denies: Hx Asthma, Hx Chronic Obstructive Pulmonary Disease (COPD) GI History: Denies: Hx Ulcer History: Reports: Hx Renal Disease, Other Problems/Disorders - GERD Musculoskeletal History: Denies: Hx Osteoporosis, Other Musculoskeletal History - Cancer History Hx Chemotherapy: No Hx Radiation Therapy: No - Surgical History Surgery Procedure, Year, and Place: PACEMAKER-1997/2012/2014; HYSTERECTOMY; TURMOR REMOVED RIGHT FEMOR; RIGHT PARTIAL SHOULDER REPLACEMENT. Infectious Disease History: No Infectious Disease History: Reports: Hx Shingles Denies: Hx Hepatitis, Hx Human Immunodeficiency Virus (HIV), Traveled Outside the [place] in Last 30 Days - Family History Known Family History: Positive: Unknown Family History: No FHx of breast CA - Social History Alcohol Use: Rare Hx Substance Use: No Substance Use Type: Reports: None Hx Tobacco Use: No Smoking Status (MU): Never Smoked Tobacco Review of Systems Constitutional: Negative Eyes: Negative ENT: Negative Cardiovascular: Negative Respiratory: Negative Gastrointestinal: Other - Rectal bleed Positive: Other Genitourinary: Negative Musculoskeletal: Negative Skin: Negative All Other Systems Reviewed And Are Negative: Yes Physical Exam Triage Information Reviewed: Yes Vital Signs On Initial Exam: Initial Vitals Temp Pulse Resp BP Pulse Ox 36.3 C 87 18 147/85 98 11/02/17 09:28 11/02/17 09:28 11/02/17 09:28 11/02/17 09:28 11/02/17 09:28 Vital Signs Reviewed: Yes Appearance: Positive: No Pain Distress Skin: Positive: Warm Eyes: Positive: Normal ENT: Positive: Normal ENT inspection Neck: Positive: Supple Respiratory/Lung Sounds: Positive: Clear to Auscultation Cardiovascular: Positive: Normal, RRR Abdomen Description: Positive: Nontender Musculoskeletal: Positive: Normal Neurological: Positive: Normal Diagnostics - Vital Signs Vital Signs Temp Pulse Resp BP Pulse Ox 11/02/17 09:28 36.3 C 87 18 147/85 98 - Laboratory Lab Statement: Any lab studies that have been ordered have been reviewed, and results considered in the medical decision making process. GIGU Course/Dx - Course Course Of Treatment: Redctal bleed- ON COUMADIN and clinically symptomatic anemia, STABLE VS but advsied to go to ER for comprehensive blood test and hemodynamic monitoring more appropriate for ER setting - Diagnoses Provider Diagnoses: Rectal bleeding, Dizziness Discharge - Sign-Out/Discharge Documenting (check all that apply): Discharge/Admit/Transfer - Discharge Plan Condition: Stable Disposition: HOME Patient Education Materials: Rectal Bleeding (ED) Referrals: Jojo Clark MD [Primary Care Provider] - Additional Instructions: GO TO ER CAIN - Billing Disposition and Condition Condition: STABLE Disposition: HOME
== END 2017-11-02 10:37 | disposition home or self-care (01) ==
LOC: UCEAST 09:12
DX: K62.5 Hemorrhage of anus and rectum (principal); R42 Dizziness and giddiness; E03.9 Hypothyroidism, unspecified; I48.91 Unspecified atrial fibrillation; Z79.01 Long term (current) use of anticoagulants; Z91.048 Other nonmedicinal substance allergy status; Z95.810 Presence of automatic (implantable) cardiac defibrillator; I10 Essential (primary) hypertension; Z96.611 Presence of right artificial shoulder joint; Z88.6 Allergy status to analgesic agent; Z88.4 Allergy status to anesthetic agent; Z88.1 Allergy status to other antibiotic agents; Z88.5 Allergy status to narcotic agent; Z88.0 Allergy status to penicillin; Z88.2 Allergy status to sulfonamides; Z88.7 Allergy status to serum and vaccine; Z88.8 Allergy status to other drugs, medicaments and biological substances
CPT/HCPCS: 99212; G0463

== ENCOUNTER 2017-11-02 10:54 | Emergency (ER) | payer MEDICARE ==
[2017-11-02 13:01] LABS: ABS Basophils 0.1 10^3/ul (0-0.2); ABS Eosinophils 0.2 10^3/ul (0-0.6); ABS Lymphocytes 2.2 10^3/ul (1.0-4.8); ABS Monocytes 0.8 10^3/ul (0-0.8); ABS Nucleated RBC 0 10^3/ul; Eosinophil % 2.7 % (0-6); Hematocrit 42 % (35-47); Hemoglobin 13.8 g/dl (12.0-16.0); Lymphocyte % 30.2 % (25-47); Mean Corpuscular HGB Conc 33 g/dl (31-36); Mean Corpuscular Hemoglobin 29 pg (27-31); Mean Corpuscular Volume 89 fL (80-97); Mean Platelet Volume 8.8 um3 (7.4-10.4); Nucleated Red Blood Cells % 0.1; Platelet Count 246 10^3/ul (150-450); Red Cell Distribution Width 15 % (10.5-15); White Blood Count 7.2 10^3/ul (3.5-10.8)
[2017-11-02 13:09] LABS: INR 2.11 (0.77-1.02)
[2017-11-02 15:03] LABS: Urine Appearance Clear; Urine Color Straw; Urine Specific Gravity 1.009 (1.010-1.030)
[2017-11-02 15:04] LABS: Urine Blood 1+ (Negative); Urine Ketones Negative (Negative); Urine Protein Negative (Negative); Urine Urobilinogen Negative (Negative)
[2017-11-02] MEDS ORDERED: Iohexol 300* (CONTRAST) 10 ML SDV IV ONE (15:12)
--- NOTE | 2017-11-02 15:46 | RAD ---
INDICATION: Rectal bleeding, diarrhea and abdominal pain. COMPARISON: Comparison is made with a prior CT of the abdomen and pelvis from November 12, 2008. TECHNIQUE: A CT scan of the abdomen and pelvis was performed with intravenous and oral contrast following intravenous injection of 96 ml of Omnipaque 300 nonionic contrast. Contiguous axial sections were obtained from the lung bases through the symphysis pubis. Images were reconstructed in the coronal and sagittal planes. FINDINGS: The lung bases are clear. No pleural effusion is present. The liver and spleen are normal in size without significant focal abnormality. The liver is decreased in attenuation consistent with fatty infiltration. No calcified gallstones are seen. The pancreas appears to be within normal limits. The kidneys and adrenal glands are normal in size. No hydronephrosis is seen. No significant focal renal abnormality is seen. The aorta is normal in caliber with mild calcific plaque present. No significant enlarged retroperitoneal lymph nodes are seen. The stomach, small and large bowel appear nondistended. The appendix is not well visualized. There are few scattered diverticuli within the colon. There is no evidence for diverticulitis or colitis. The patient is status post hysterectomy. No free intraperitoneal air or fluid is seen. There is a moderate compression fracture of the L1 vertebral body which appears chronic. No other fractures are seen. IMPRESSION: NO EVIDENCE FOR ACUTE FINDING OR CAUSE FOR THE PATIENT'S ABDOMINAL PAIN IS SEEN.
[2017-11-02] MEDS ORDERED: Pantoprazole IV* 40 MG IV ONE (17:09)
[2017-11-02 17:10] LABS: Hematocrit 41 % (35-47); Hemoglobin 13.8 g/dl (12.0-16.0); Mean Corpuscular HGB Conc 34 g/dl (31-36); Mean Corpuscular Hemoglobin 30 pg (27-31); Mean Corpuscular Volume 88 fL (80-97); Mean Platelet Volume 8.4 um3 (7.4-10.4); Platelet Count 248 10^3/ul (150-450); Red Blood Count 4.62 10^6/ul (4.0-5.4); Red Cell Distribution Width 15 % (10.5-15); White Blood Count 7.8 10^3/ul (3.5-10.8)
[2017-11-02] MEDS ORDERED: Phytonadione INJ (Adult)* 10 MG/ML 1 ML AMP IV ONE (17:58)
[2017-11-02] MEDS ORDERED: Pantoprazole IV* 80 MG in NS 0.9% 250 ML* 250 ML IVPB ONE (18:00)
[2017-11-02 18:33] VITALS: BP 154/97
[2017-11-02] MEDS ORDERED: Phytonadione INJ (Adult)* 5 MG in NS 0.9% 50 ML* 50 ML IV ONE (19:00)
--- NOTE | 2017-11-03 13:40 | ED ---
Olesya Burleson Nilda, scribed for Satish Fan MD on 11/02/17 at 1226 . GI/ HPI - HPI Summary HPI Summary: This patient is a 77 year old F presenting to [facility] accompanied by with a chief complaint of constant bright red bleeding from rectum during BM for past 2 days. She notes she has increasingly seen more blood in the toilet. Pt states she had intestinal infection a few weeks ago and had been on Vanco for the past 2 weeks. Pt states she was going to be evaluated for C. Diff but testing was cancelled because she has not had diarrhea recently. The patient rates the pain 0/10 in severity. Symptoms aggravated by BM and alleviated by nothing. Patient reports increased dizziness, and RLQ pain, but denies CP and SOB. Pt states shes on Coumadin for A-fib. - History of Current Complaint Chief Complaint: EDGIBleed Time Seen by Provider: 11/02/17 12:07 Stated Complaint: ABNORMAL BLEEDING-CC TRANSFER Hx Obtained From: Patient Onset/Duration: Started Minutes Ago, Started Days Ago, Still Present Timing: Constant Pain Intensity: 0 Location of Pain: RLQ, Rectal Associated Signs and Symptoms: Positive: Other: - dizziness, RLQ pain, bright red blood bleeding from rectum; negative CP, SOB Aggravating Factor(s): Bowel Movement Alleviating Factor(s): Nothing - Allergy/Home Medications Allergies/Adverse Reactions: Allergies Allergy/AdvReac Type Severity Reaction Status Date / Time adhesive tape Allergy Rash Verified 11/02/17 11:04 Beta-Blockers Allergy Unknown Verified 11/02/17 11:04 (Beta-Adrenergic Bloc Reaction Details erythromycin base Allergy Unknown Verified 11/02/17 11:04 Reaction Details lidocaine [From Lidoderm] Allergy Unknown Verified 11/02/17 11:04 Reaction Details meperidine [From Demerol] Allergy Unknown Verified 11/02/17 11:04 Reaction Details nortriptyline Allergy Unknown Verified 11/02/17 11:04 Reaction Details NSAIDS (Non-Steroidal Allergy See Comment Verified 11/02/17 11:04 Anti-Inflamma oxycodone Allergy Altered Verified 11/02/17 11:04 Mental Status Penicillins Allergy Rash Verified 11/02/17 11:04 propoxyphene [From Darvon] Allergy Unknown Verified 11/02/17 11:04 Reaction Details Sulfa (Sulfonamide Allergy Rash Verified 11/02/17 11:04 Antibiotics) tetanus toxoid, adsorbed Allergy Unknown Verified 11/02/17 11:04 Reaction Details Home Medications: Home Medications Atenolol TAB* [Tenormin TAB* 25 MG] 25 mg PO BID 11/02/17 [History Confirmed ] Atorvastatin* [Lipitor*] 80 mg PO DAILY 11/02/17 [History Confirmed 11/02/17] Cholecalciferol TAB* [Vitamin D TAB*] 2,000 units PO DAILY 11/02/17 [History Confirmed 11/02/17] Levothyroxine TAB* [Synthroid TAB*] 100 mcg PO DAILY 11/02/17 [History Confirmed 11/02/17] Multivitamins/Minerals TAB* [Theragran/minerals TAB*] 1 tab PO DAILY 11/02/17 [ History Confirmed 11/02/17] Omeprazole CAP* [Prilosec CAP* 20 MG] 20 mg PO DAILY 11/02/17 [History Confirmed 11/02/17] PARoxetine HCL TAB* [Paxil TAB*] 20 mg PO DAILY 11/02/17 [History Confirmed ] ValACYclovir (*) [Valtrex 500 mg (*)] 500 mg PO DAILY 11/02/17 [History Confirmed 11/02/17] Warfarin TAB(*) [Coumadin TAB(*)] 2.5 mg PO MOWEFR 11/02/17 [History Confirmed 11/02/17] Warfarin TAB(*) [Coumadin TAB(*)] 5 mg PO SUTUTHSA 11/02/17 [History Confirmed 11/02/17] PMH/Surg Hx/FS Hx/Imm Hx Endocrine/Hematology History: Reports: Hx Anticoagulant Therapy, Hx Thyroid Disease - hypo Denies: Hx Diabetes Cardiovascular History: Reports: Hx Atrial Fibrillation, Hx Auto Implanted Cardiovert Defib, Hx Hypertension, Hx Pacemaker/ICD - 09/30/14, Other Cardiovascular Problems/Disorders - SVT Respiratory History: Denies: Hx Asthma, Hx Chronic Obstructive Pulmonary Disease (COPD) GI History: Denies: Hx Ulcer History: Reports: Hx Renal Disease, Other Problems/Disorders - GERD Musculoskeletal History: Denies: Hx Osteoporosis, Other Musculoskeletal History - Cancer History Hx Chemotherapy: No Hx Radiation Therapy: No - Surgical History Surgery Procedure, Year, and Place: PACEMAKER-; HYSTERECTOMY; TURMOR REMOVED RIGHT FEMOR; RIGHT PARTIAL SHOULDER REPLACEMENT. Infectious Disease History: No Infectious Disease History: Reports: Hx Shingles Denies: Hx Hepatitis, Hx Human Immunodeficiency Virus (HIV), Traveled Outside the [place] in Last 30 Days - Family History Known Family History: Positive: Other - negative breast CA - Social History Lives: With Family Alcohol Use: Rare Hx Substance Use: No Substance Use Type: Reports: None Hx Tobacco Use: No Smoking Status (MU): Never Smoked Tobacco Review of Systems Negative: Fever, Chills Negative: Erythema Negative: Sore Throat Negative: Chest Pain Negative: Shortness Of Breath, Cough Positive: Abdominal Pain, Other - bleeding from rectum. Negative: Vomiting, Diarrhea, Nausea Negative: dysuria, hematuria Negative: Myalgia, Edema Negative: Rash Neurological: Other - dizziness All Other Systems Reviewed And Are Negative: Yes Physical Exam - Summary Physical Exam Summary: Constitutional: Well-developed, Well-nourished, Alert. (-) Distressed Skin: Warm, Dry HENT: Normocephalic; Atraumatic Eyes: Conjunctiva normal Neck: Musculoskeletal ROM normal neck. (-) JVD, (-) Stridor, (-) Tracheal deviation Cardio: Rhythm regular, rate normal, Heart sounds normal; Intact distal pulses; The pedal pulses are 2+ and symmetric. Radial pulses are 2+ and symmetric. (-) Murmur Pulmonary/Chest wall: Effort normal. (-) Respiratory distress, (-) Wheezes, (-) Rales Abd: Soft, (-) Tenderness, (-) Distension, (-) Guarding, (-) Rebound Rectal (nurse Yee present during exam): Tiny speck of blood, + external hemorrhoid. Musculoskeletal: (-) Edema Lymph: (-) Cervical adenopathy Neuro: Alert, Oriented x3 Psych: Mood and affect Normal Triage Information Reviewed: Yes Vital Signs On Initial Exam: Initial Vitals Temp Pulse Resp BP Pulse Ox 97.1 F 83 16 186/100 99 11/02/17 11:00 11/02/17 11:00 11/02/17 11:00 11/02/17 11:00 11/02/17 11:00 Vital Signs Reviewed: Yes Diagnostics - Vital Signs Vital Signs Temp Pulse Resp BP Pulse Ox 11/02/17 11:00 97.1 F 83 16 186/100 99 - Laboratory Lab Results: Lab Results 11/02/17 11/02/17 11/02/17 Range/Units 12:32 12:32 12:32 WBC 7.2 (3.5-10.8) 10^3/ul RBC 4.70 (4.0-5.4) 10^6/ul Hgb 13.8 (12.0-16.0) g/dl Hct 42 (35-47) % MCV 89 (80-97) fL MCH 29 (27-31) pg MCHC 33 (31-36) g/dl RDW 15 (10.5-15) % Plt Count 246 (150-450) 10^3/ul MPV 8.8 (7.4-10.4) um3 Neut % (Auto) 55.3 (38-83) % Lymph % (Auto) 30.2 (25-47) % Mcintosh % (Auto) 11.1 H (0-7) % Eos % (Auto) 2.7 (0-6) % Baso % (Auto) 0.7 (0-2) % Absolute Neuts (auto) 4.0 (1.5-7.7) 10^3/ul Absolute Lymphs (auto) 2.2 (1.0-4.8) 10^3/ul Absolute Monos (auto) 0.8 (0-0.8) 10^3/ul Absolute Eos (auto) 0.2 (0-0.6) 10^3/ul Absolute Basos (auto) 0.1 (0-0.2) 10^3/ul Absolute Nucleated RBC 0 10^3/ul Nucleated RBC % 0.1 INR (Anticoag Therapy) (0.77-1.02) APTT (26.0-36.3) seconds Sodium 137 L (139-145) mmol/L Potassium TNP Chloride 102 (101-111) mmol/L Carbon Dioxide 25 (22-32) mmol/L Anion Gap 10 (2-11) mmol/L BUN 15 (6-24) mg/dL Creatinine 0.87 (0.51-0.95) mg/dL Est GFR ( Amer) 81.0 (>60) Est GFR (Non-Af Amer) 63.0 (>60) BUN/Creatinine Ratio 17.2 (8-20) Glucose 96 (70-100) mg/dL Lactic Acid 0.9 (0.5-2.0) mmol/L Calcium 9.3 (8.6-10.3) mg/dL Total Bilirubin 0.80 (0.2-1.0) mg/dL AST TNP ALT 19 (7-52) U/L Alkaline Phosphatase 126 H (34-104) U/L C-Reactive Protein 2.13 (< 5.00) mg/L Total Protein 7.7 (6.4-8.9) g/dL Albumin 4.1 (3.2-5.2) g/dL Globulin 3.6 (2-4) g/dL Albumin/Globulin Ratio 1.1 (1-3) Lipase 27 (11.0-82.0) U/L Urine Color Urine Appearance Urine pH (5-9) Ur Specific [place] (1.010-1.030) Urine Protein (Negative) Urine Ketones (Negative) Urine Blood (Negative) Urine Nitrate (Negative) Urine Bilirubin (Negative) Urine Urobilinogen (Negative) Ur Leukocyte Esterase (Negative) Urine WBC (Auto) (Absent) Urine RBC (Auto) (Absent) Urine Bacteria (Absent) Urine Glucose (Negative) Blood Type Antibody Screen 11/02/17 11/02/17 11/02/17 Range/Units 12:32 12:32 13:50 WBC (3.5-10.8) 10^3/ul RBC (4.0-5.4) 10^6/ul Hgb (12.0-16.0) g/dl Hct (35-47) % MCV (80-97) fL MCH (27-31) pg MCHC (31-36) g/dl RDW (10.5-15) % Plt Count (150-450) 10^3/ul MPV (7.4-10.4) um3 Neut % (Auto) (38-83) % Lymph % (Auto) (25-47) % Mcintosh % (Auto) (0-7) % Eos % (Auto) (0-6) % Baso % (Auto) (0-2) % Absolute Neuts (auto) (1.5-7.7) 10^3/ul Absolute Lymphs (auto) (1.0-4.8) 10^3/ul Absolute Monos (auto) (0-0.8) 10^3/ul Absolute Eos (auto) (0-0.6) 10^3/ul Absolute Basos (auto) (0-0.2) 10^3/ul Absolute Nucleated RBC 10^3/ul Nucleated RBC % INR (Anticoag Therapy) 2.11 H (0.77-1.02) APTT 40.5 H (26.0-36.3) seconds Sodium (139-145) mmol/L Potassium Chloride (101-111) mmol/L Carbon Dioxide (22-32) mmol/L Anion Gap (2-11) mmol/L BUN (6-24) mg/dL Creatinine (0.51-0.95) mg/dL Est GFR ( Amer) (>60) Est GFR (Non-Af Amer) (>60) BUN/Creatinine Ratio (8-20) Glucose (70-100) mg/dL Lactic Acid (0.5-2.0) mmol/L Calcium (8.6-10.3) mg/dL Total Bilirubin (0.2-1.0) mg/dL AST ALT (7-52) U/L Alkaline Phosphatase (34-104) U/L C-Reactive Protein (< 5.00) mg/L Total Protein (6.4-8.9) g/dL Albumin (3.2-5.2) g/dL Globulin (2-4) g/dL Albumin/Globulin Ratio (1-3) Lipase (11.0-82.0) U/L Urine Color Straw Urine Appearance Clear Urine pH 7.0 (5-9) Ur Specific [place] 1.009 L (1.010-1.030) Urine Protein Negative (Negative) Urine Ketones Negative (Negative) Urine Blood 1+ A (Negative) Urine Nitrate Negative (Negative) Urine Bilirubin Negative (Negative) Urine Urobilinogen Negative (Negative) Ur Leukocyte Esterase Negative (Negative) Urine WBC (Auto) Absent (Absent) Urine RBC (Auto) Trace(0-2/hpf) (Absent) Urine Bacteria Absent (Absent) Urine Glucose Negative (Negative) Blood Type A Positive Antibody Screen Negative 11/02/17 11/02/17 11/02/17 Range/Units 14:15 16:53 17:02 WBC 7.8 (3.5-10.8) 10^3/ul RBC 4.62 (4.0-5.4) 10^6/ul Hgb 13.8 (12.0-16.0) g/dl Hct 41 (35-47) % MCV 88 (80-97) fL MCH 30 (27-31) pg MCHC 34 (31-36) g/dl RDW 15 (10.5-15) % Plt Count 248 (150-450) 10^3/ul MPV 8.4 (7.4-10.4) um3 Neut % (Auto) (38-83) % Lymph % (Auto) (25-47) % Mcintosh % (Auto) (0-7) % Eos % (Auto) (0-6) % Baso % (Auto) (0-2) % Absolute Neuts (auto) (1.5-7.7) 10^3/ul Absolute Lymphs (auto) (1.0-4.8) 10^3/ul Absolute Monos (auto) (0-0.8) 10^3/ul Absolute Eos (auto) (0-0.6) 10^3/ul Absolute Basos (auto) (0-0.2) 10^3/ul Absolute Nucleated RBC 10^3/ul Nucleated RBC % INR (Anticoag Therapy) (0.77-1.02) APTT (26.0-36.3) seconds Sodium (139-145) mmol/L Potassium 3.6 Chloride (101-111) mmol/L Carbon Dioxide (22-32) mmol/L Anion Gap (2-11) mmol/L BUN (6-24) mg/dL Creatinine (0.51-0.95) mg/dL Est GFR ( Amer) (>60) Est GFR (Non-Af Amer) (>60) BUN/Creatinine Ratio (8-20) Glucose (70-100) mg/dL Lactic Acid 1.0 (0.5-2.0) mmol/L Calcium (8.6-10.3) mg/dL Total Bilirubin (0.2-1.0) mg/dL AST 29 ALT (7-52) U/L Alkaline Phosphatase (34-104) U/L C-Reactive Protein (< 5.00) mg/L Total Protein (6.4-8.9) g/dL Albumin (3.2-5.2) g/dL Globulin (2-4) g/dL Albumin/Globulin Ratio (1-3) Lipase (11.0-82.0) U/L Urine Color Urine Appearance Urine pH (5-9) Ur Specific [place] (1.010-1.030) Urine Protein (Negative) Urine Ketones (Negative) Urine Blood (Negative) Urine Nitrate (Negative) Urine Bilirubin (Negative) Urine Urobilinogen (Negative) Ur Leukocyte Esterase (Negative) Urine WBC (Auto) (Absent) Urine RBC (Auto) (Absent) Urine Bacteria (Absent) Urine Glucose (Negative) Blood Type Antibody Screen Result Diagrams: 11/02/17 17:02 11/02/17 14:15 Lab Statement: Any lab studies that have been ordered have been reviewed, and results considered in the medical decision making process. - CT Abd/Pel CT Interpretation Completed By: Radiologist - NO EVIDENCE FOR ACUTE FINDING OR CAUSE FOR THE PATIENT'S ABDOMINAL PAIN IS SEEN. Dr. Fan has reviewed this report. Re-Evaluation - Re-Evaluation First Eval Re-Evaluation Time: 16:59 Comment: Continuing to bleeding. Agrees to transfer plan. Will see if beds available. GIGU Course/Dx - Course Course Of Treatment: [1710] Jose Miguel Iyer: no beds are immediately available. [facility] is currently checking bed availability. [1757] Dr. Abbott from [facility] accepts pt for transfer. Assessment/Plan: Pt has been on hemodynamically stable. She is anticoagulated. Pt requires protonics drip and colonoscopy in hospital. GI is not available in our facility today. - Diagnoses Provider Diagnoses: GI bleed - Physician Notifications Discussed Care Of Patient With: Vinod Sánchez - Hospitalist Time Discussed With Above Provider: 16:54 Instructed by Provider To: Other - discussed case with Dr. Sánchez who recommends transfering pt due to no GI coverage today. Discharge - Sign-Out/Discharge Documenting (check all that apply): Discharge/Admit/Transfer - [facility] - Discharge Plan Condition: Stable Disposition: TRANS HIGHER LVL OF CARE FAC Referrals: Jojo Clark MD [Primary Care Provider] - The documentation as recorded by the Olesya velazquez Nilda accurately reflects the service I personally performed and the decisions made by , Satish Fan MD.
== END 2017-11-02 19:06 | disposition short-term general hospital (02) ==
LOC: ED 10:54
DX: K92.2 Gastrointestinal hemorrhage, unspecified (principal); R10.31 Right lower quadrant pain; R42 Dizziness and giddiness; E03.9 Hypothyroidism, unspecified; I48.91 Unspecified atrial fibrillation; Z79.01 Long term (current) use of anticoagulants; Z95.810 Presence of automatic (implantable) cardiac defibrillator; I10 Essential (primary) hypertension; N28.9 Disorder of kidney and ureter, unspecified; K21.9 Gastro-esophageal reflux disease without esophagitis; Z96.611 Presence of right artificial shoulder joint; Z88.6 Allergy status to analgesic agent; Z88.4 Allergy status to anesthetic agent; Z88.1 Allergy status to other antibiotic agents; Z88.5 Allergy status to narcotic agent; Z88.0 Allergy status to penicillin; Z88.2 Allergy status to sulfonamides; Z88.7 Allergy status to serum and vaccine; Z88.8 Allergy status to other drugs, medicaments and biological substances; Z91.048 Other nonmedicinal substance allergy status
CPT/HCPCS: 36415; 74177; 80053; 81003; 81015; 82272; 83605; 83690; 85025; 85027; 85610; 85730; 86140; 86850; 86900; 86901; 96365; 96375; 99284; J3430; Q9967

== ENCOUNTER 2018-07-15 21:12 | Emergency (ER) | payer MEDICARE ==
--- OUTSIDE RECORDS SUMMARY | 2018-07-15 21:27 | XMS REPORT | Continuity of Care Document ---
:1940 External Reference #:[id number] Author Name Pat Arteaga O.D. Address [address] [place] [address] Care Team Providers Name Role Phone Jojo Clark M.D. Primary Care Physician Unavailable Payers Type Date Identification Numbers Payment Provider Subscriber Effective: Policy Number: [id number] Medicare - NGS Kina Davis 2004 Onset: 2007 PayID: [id number] [address] [place] [address] Onset: 2007 Policy Number: [id number] [facility] Kina Davis PayID: [id number] [address] [place] [address] Advance Directives Description No Information Available Problems Date Description Provider Status Onset: Atrial fibrillation Active Onset: Diffuse spasm of esophagus Active Onset: Hypothyroidism Active Onset: Anxiety Active Onset: Hypercholesterolemia Active Onset: Methicillin resistant Staphylococcus Active aureus infection Onset: Essential hypertension Active Onset: 11/11/2014 Fuchs' corneal dystrophy Pat Arteaga Active O.Garrett Onset: 11/16/2014 Chronic allergic conjunctivitis Harleen Hand O.Garrett Onset: 11/16/2014 Tear film insufficiency Pat Arteaga Active O.DKaryn Onset: 11/16/2014 Hereditary corneal dystrophy Harleen Hand O.Garrett Onset: 11/18/2014 Pseudophakia Harleen Hand O.DKaryn Onset: 11/28/2014 Minor opacity of cornea Harleen Hand O.Garrett Onset: 08/22/2015 Strabismic amblyopia Harleen Hand O.Garrett Onset: 03/08/2016 Punctate keratitis Harleen Hand O.Garrett Onset: 03/08/2016 Dystrophy of anterior cornea Pat Arteaga Active O.DKaryn Onset: 03/29/2016 Corneal opacity Harleen Hand O.Garrett Onset: 08/14/2016 Angular blepharoconjunctivitis Devika Grajeda O.D. 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 ETOH Use Denies alcohol use Tobacco Use Start: Unknown Patient has never smoked Smoking Status Reviewed: 06/30/18 Patient has never smoked Allergies, Adverse Reactions, Alerts Date Description Reaction Status Severity Comments 11/11/2014 Penicillins Active 11/11/2014 Sulfa Antibiotics Active 11/11/2014 Erythromycin Active 11/11/2014 Beta Adrenergic Blockers Active 11/11/2014 Ibuprofen Active 11/11/2014 Demerol Active 11/11/2014 Latex Active 11/11/2014 Restasis Active 11/11/2014 Diovan Active 11/11/2014 Codeine Active 11/28/2014 Tape Active 08/14/2016 Oxycodone Active Medications Medication Date Status Form Strength Qnty SIG Indications Ordering Provider Systane 06/28 Active Gel 0.4-0.3% One drop Pat Mina /2017 every 2-3 Chandler hours both O.D. eyes Systane 11/17 Active Ointment every night Pat Mina Arnoldo Arteaga Valacyclovir Active Tablets 500mg Varn, HCL Magi [employer] Levothyroxine Active Tablets 100mcg Cotton, Sodium Jojo Del Rosario Atorvastatin Active Tablets 80mg Varn, Calcium Magi [employer] Atenolol Active Tablets 25mg Frazier, Piyush Del Rosario Coumadin 00 Active Tablets 5mg Qing, / Tania Nino Vitamin Active Tablets Unknown Daily Vitamin D Active Tablets 1000Unit every day Unknown Famotidine 00 Active Tablets 40mg Butcher, Harvinder Vegas M.D. Systane Active Gel 0.4-0.3% 1 drop both Unknown / eyes twice a day Escitalopram Active Tablets 10mg Cotton, Oxalate Jojo Del Rosario Gabapentin Active Capsules 100mg Unknown / Flonase Allergy Active Suspension 50mcg/Act 2 sprays Unknown intranasal daily every night Systane 12/12 Hx Gel 0.4-0.3% every 3 Pat Mina /2016 hours Chandler - O.DKaryn 06/29 Ciprofloxacin 08/14 Hx Solution 0.3% 5ml 1 drop H10.523 Devika C. HCL 3x/day for Arnoldo Grajeda - 7 days both 08/24 eyes /2016 Lotemax 08/14 Hx Ointment 0.5% 3.500 apply to H16.143 Devika C. /2016 gm lower Nicci O.DKaryn - eyelids and 08/24 lashes at night for 1 week Retaine [facility] 03/25 Hx Solution 0.5% Pat Mina /2015 Chandler - O.DKaryn 12/09 Tobramycin-Dexa 11/11 Hx Suspension 0.3-0.1% 10ml 1 drop 372.14 Pat Mina methasone 4xday both Chandler - eyes O.D. 11/27 Paroxetine HCL Hx Tablets 40mg Cotton, Jojo - Miguel Ángel 12/[address] 20mg Eduardo, Jojo - Miguel Ángel 10/12 Calcium 600 Hx Tablets 600mg Unknown / - 03/07 Co Q 10 Hx Capsules 60mg Unknown / - 03/07 Medications Administered in Office Medication Date Status Form Strength Qnty SIG Indications Ordering Provider Crizal Administered Injection Diallo 4 Silva, A.B.O. Immunizations Description No Information Available Vital Signs Date Vital Result Comment 03/29/2016 2:37pm BP Systolic 110 mmHg BP Diastolic 65 mmHg Heart Rate 77 /min Respiratory Rate 16 /min 03/08/2016 10:52am BP Systolic 130 mmHg BP Diastolic 73 mmHg Heart Rate 70 /min Respiratory Rate 16 /min Results Description No Information Available Procedures Date Code Description Status 07/01/2017 82124 Determination Of Refractive State Completed 07/01/2017 60331 Est Patient Comprehensive Exam Completed 06/20/2017 81311 Rescheduled Appointment Completed 12/15/2016 04336 Determination Of Refractive State Completed 10/15/2016 80269 Est Patient Comprehensive Exam Completed 08/14/2016 83161 Est Patient Intermediate Exam Completed 04/14/2016 43804 Est Patient Intermediate Exam Completed 03/29/2016 32045 Close Lacrimal Punctum, Plug Completed 03/08/2016 32793 Close Lacrimal Punctum, Plug Completed 03/08/2016 29684 Est Patient Comprehensive Exam Completed 08/22/2015 90701 Est Patient Comprehensive Exam Completed 02/19/2015 02455 Determination Of Refractive State Completed 02/19/2015 45111 Est Patient Comprehensive Exam Completed 11/11/2014 27976 Est Patient Intermediate Exam Completed 09/13/2014 06463 Est Patient Intermediate Exam Completed 09/13/2014 22494 Close Lacrimal Punctum, Plug Completed 09/13/2014 35405 Close Lacrimal Punctum, Plug Completed 08/23/2014 88489 Close Lacrimal Punctum, Plug Completed 08/23/2014 18720 Close Lacrimal Punctum, Plug Completed 08/23/2014 55626 Est Patient Intermediate Exam Completed 08/17/2014 90747 Est Patient Intermediate Exam Completed 08/10/2014 20850 Contact Lens For Treatment Of Ocular Surface Disease Completed 08/10/2014 42356 Contact Lens For Treatment Of Ocular Surface Disease Completed 08/10/2014 07976 Est Patient Intermediate Exam Completed 06/29/2014 50239 Contact Lens For Treatment Of Ocular Surface Disease Completed 06/29/2014 63363 Contact Lens For Treatment Of Ocular Surface Disease Completed 06/22/2014 87288 Est Patient Intermediate Exam Completed 06/22/2014 10025 Contact Lens For Treatment Of Ocular Surface Disease Completed 06/22/2014 34734 Contact Lens For Treatment Of Ocular Surface Disease Completed 06/10/2014 07576 Contact Lens For Treatment Of Ocular Surface Disease Completed 06/10/2014 37280 Contact Lens For Treatment Of Ocular Surface Disease Completed 06/03/2014 36673 Est Patient Intermediate Exam Completed 06/03/2014 607 Kimtech Wipes Completed 06/01/2014 54455 Contact Lens For Treatment Of Ocular Surface Disease Completed 06/01/2014 63370 Contact Lens For Treatment Of Ocular Surface Disease Completed 04/19/2014 37028 Est Patient Comprehensive Exam Completed 04/19/2014 08761 Determination Of Refractive State Completed 02/27/2013 03977 Remove Secondary Cataract, Laser (Yag) Completed 01/29/2013 75506 Est Patient Comprehensive Exam Completed 09/01/2012 89523 Est Patient Intermediate Exam Completed 08/02/2012 13835 Determination Of Refractive State Completed 08/02/2012 39914 Est Patient Comprehensive Exam Completed 01/19/2012 50671 Determination Of Refractive State Completed 01/19/2012 16230 Est Patient Intermediate Exam Completed 08/06/2011 51771 Est Patient Intermediate Exam Completed 07/21/2011 10106 Est Patient Comprehensive Exam Completed 07/21/2011 59200 Determination Of Refractive State Completed 06/28/2011 95456 Est Patient Intermediate Exam Completed 09/18/2010 91174 Est Patient Comprehensive Exam Completed 09/18/2010 60720 Close Lacrimal Punctum, Plug Completed 09/18/2010 519 Eyeglass Offset Machine Operator Completed 02/27/2010 41601 Est Patient Intermediate Exam Completed 08/29/2009 28362 Determination Of Refractive State Completed 08/15/2009 81409 Est Patient Intermediate Exam Completed 12/27/2008 519 Eyeglass Offset Machine Operator Completed 06/17/2008 516 Cod Liver Oil Tablets Completed 01/04/2008 00745 Est Patient Intermediate Exam Completed 11/01/2007 61384 Extracapsular Cataract Extraction W/Intraocular Lens Completed 10/19/2007 67717 Ophthalmic Biometry Completed 10/18/2007 00934 Extracapsular Cataract Extraction W/Intraocular Lens Completed 10/11/2007 37629 Ophthalmic Biometry Completed 08/30/2007 65377 Est Patient Comprehensive Exam Completed 08/26/2006 17493 Est Patient Comprehensive Exam Completed 08/26/2006 12640 Determination Of Refractive State Completed 12/29/2004 30276 Determination Of Refractive State Completed 12/29/2004 79384 Est Patient Comprehensive Exam Completed 01/23/2004 51199 Est Patient Intermediate Exam Completed 12/02/2003 29546 Fundus Photography With Interpretation And Report Completed 12/02/2003 94325 Est Patient Comprehensive Exam Completed 11/25/2003 113 Crizal Completed 11/13/2003 69318 Determination Of Refractive State Completed 11/13/2003 20044 Est Patient Comprehensive Exam Completed Encounters Type Date Location Provider Dx Diagnosis Office Visit 12/30/2017 Pat Damon H04.123 Dry eye syndrome 2:00p , marjorie Arteaga O.D. 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 keratitis, right eye H17.89 Other corneal scars and opacities Z96.1 Presence of intraocular lens Office Visit 11/28/2014 11:40a Jose Miguel Mina 375.15 Dry Eyes (Morris Baron MD, marjorie Arteaga O.D. Syndrome) 371.50 Corneal Dystrophy Unspec 371.01 Corneal Opacity Minor Office Visit 11/18/2014 10:10a Jose Miguel Mina 375.15 Dry Eyes (Morris Baron MD, marjorie Arteaga O.D. Syndrome) 372.14 Allergic Conjunctivitis 371.50 Corneal Dystrophy Unspec V43.1 Pseudophakia Office Visit 11/16/2014 1:00p Jose Miguel Mina 372.14 Allergic MD Tod, marjorie Arteaga O.D. Conjunctivitis 375.15 Dry Eyes (Sicca Syndrome) 371.50 Corneal Dystrophy Unspec Office Visit 10/03/2014 11:00a Jose Miguel Mina 371.57 Fuch's Corneal MD Tod, marjorie Arteaga O.D. Dystrophy 375.15 Dry Eyes (Sicca Syndrome) Office Visit 09/02/2014 10:40a Jose Miguel Mina 371.57 Fuch's Corneal MD Tod, marjorie Arteaga O.D. 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 Corneal Office Visit 07/08/2014 11:15a Jose Miguel Herrera 371.42 Recurrent Erosion MD Tod, marjorie Olmanish O.D. Corneal Office Visit 06/29/2014 9:45a Jose Miguel Herrera 371.42 Recurrent Erosion MD Tod, marjorie Grajeda O.D. Corneal Office Visit 06/15/2014 1:00p Jose Miguel Herrera 371.42 Recurrent José Miguel Baron MD, marjorie Grajeda O.D. Corneal Office Visit 06/10/2014 1:15p Jose Miguel Herrera 371.42 Recurrent José Miguel Baron MD, marjorie Grajeda O.D. 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 Corneal Office Visit 08/13/2011 3:30p Jose Miguel Mina 372.30 Conjunctivitis MD Tod, marjorie Arteaga O.D. Unspec Office Visit 01/04/2011 12:10p Jose Miguel Mina 375.15 Dry Eyes (Morris Baron MD, marjorie Arteaga O.D. 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 Syndrome) Office Visit 08/29/2009 1:10p Jose Miguel Mina 371.57 Fuch's Corneal MD Tod, marjorie Arteaga O.D. Dystrophy Office Visit 05/26/2009 1:30p Jose Miguel Brown 375.15 Dry Eyes (Morris Baron MD, pc Abe Perrin O.D. Syndrome) Office Visit 12/27/2008 10:00a Jose Miguel Mina 373.12 Delaney Baron MD, marjorie Arteaga O.D. Office Visit 06/17/2008 1:00p Jose Miguel Mina 375.15 Dry Eyes (Morris Baron MD, marjorie Baron M.D. Syndrome) Office Visit 05/23/2008 2:15p Jose Miguel Mina 370.20 Superficial MD Tod, marjorie Baron M.D. Keratitis Unspec Office Visit 05/07/2008 11:15a Jose Miguel Mina 375.15 Dry Eyes (Morris Baron MD, marjorie Baron M.D. Syndrome) Office Visit 01/11/2008 12:10p Jose Miguel Mina 373.12 Meiki Baron MD, marjorie Arteaga O.D. 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 Sclerosis / Cataract Plan of Treatment 06/30/2018 - Pat Arteaga O.D.H04.123 Dry eye syndrome of bilateral lacrimal glandsComments:Continue Systane Nighttime at bedtime both eyesContinue Gel Tears Both eyes every 2 hoursFollow up:2-3 week follow upH18.59 Other hereditary corneal [id number] Presence of intraocular lensComments:The artificial lens implants in both eyes appear to be stable at this time.H53.032 Strabismic amblyopia, left eyeH16.143 Punctate keratitis, bilateral
--- NOTE | 2018-07-15 22:51 | ED ---
HPI Chest Pain - HPI Summary HPI Summary: The patient is a 77 y/o F presenting to [facility] with a chief complaint of chest pressure and nausea starting last night, resolving, and returning this morning with vomiting onset this afternoon. During the day yesterday, she felt normal, but then became nauseous last night with mild CP, SOB, and a nonproductive cough. She went to sleep propped up to relieve the pain, and then woke up with mild pain. She applied Marcelo's Vapor Rub on her chest because she thought that she may have the flu. She went out to dinner where she ate a normal meal, but then she had an onset of vomiting and her chest pain was gradually worsening throughout the day. Currently, her pain is rated 6/10 in severity, and she is nauseous. She additionally c/o headache, low-grade fever, and diffuse suprapubic pain. She has surgical hx of hysterectomy and appendectomy. She has a pacemaker for tachycardia and Afib. She denies additional cardiac issues. - History of Current Complaint Chief Complaint: EDChestPainROMI Time Seen by Provider: 07/15/18 21:49 Hx Obtained From: Patient Onset/Duration: Started Hours Ago - yesterday, resolved over night, returned this morning with gradual worsening, Still Present Timing: Lasting Hours Initial Severity: Moderate Current Severity: Moderate Pain Intensity: 6 Pain Scale Used: 0-10 Numeric Chest Pain Location: Diffuse Chest Pain Radiates: No Character: Pressure/Squeezing Aggravating Factor(s): Other: - eating Alleviating Factor(s): Other: - Marcelo's Vapor Rub for mild relief Associated Signs and Symptoms: Positive: Chest Pain - pressure, Shortness of Breath, Fever - low-grade, Nausea, Nonproductive Cough, Abdominal Pain - suprapubic, Vomiting, Other: - headache - Allergy/Home Medications Allergies/Adverse Reactions: Allergies Allergy/AdvReac Type Severity Reaction Status Date / Time adhesive tape Allergy Rash Verified 07/15/18 21:16 Beta-Blockers Allergy Unknown Verified 07/15/18 21:16 (Beta-Adrenergic Bloc Reaction Details erythromycin base Allergy Unknown Verified 07/15/18 21:16 Reaction Details lidocaine [From Lidoderm] Allergy Unknown Verified 07/15/18 21:16 Reaction Details meperidine [From Demerol] Allergy Unknown Verified 07/15/18 21:16 Reaction Details nortriptyline Allergy Unknown Verified 07/15/18 21:16 Reaction Details NSAIDS (Non-Steroidal Allergy See Comment Verified 07/15/18 21:16 Anti-Inflamma oxycodone Allergy Altered Verified 07/15/18 21:16 Mental Status Penicillins Allergy Rash Verified 07/15/18 21:16 propoxyphene [From Darvon] Allergy Unknown Verified 07/15/18 21:16 Reaction Details Sulfa (Sulfonamide Allergy Rash Verified 07/15/18 21:16 Antibiotics) tetanus toxoid, adsorbed Allergy Unknown Verified 07/15/18 21:16 Reaction Details hydrocodone AdvReac Altered Verified 07/15/18 21:16 Mental Status PMH/Surg Hx/FS Hx/Imm Hx Endocrine/Hematology History: Reports: Hx Anticoagulant Therapy, Hx Thyroid Disease - hypo Denies: Hx Diabetes Cardiovascular History: Reports: Hx Atrial Fibrillation, Hx Auto Implanted Cardiovert Defib, Hx Hypercholesterolemia, Hx Hypertension, Hx Pacemaker/ICD - 3 /15, Other Cardiovascular Problems/Disorders - SVT Respiratory History: Denies: Hx Asthma, Hx Chronic Obstructive Pulmonary Disease (COPD) GI History: Denies: Hx Ulcer History: Reports: Hx Renal Disease, Other Problems/Disorders - GERD Musculoskeletal History: Reports: Other Musculoskeletal History - Right Shoulder Pain Denies: Hx Osteoporosis Psychiatric History: Reports: Hx Depression - Cancer History Hx Chemotherapy: No Hx Radiation Therapy: No - Surgical History Surgery Procedure, Year, and Place: PACEMAKER-1997/2012/2014; HYSTERECTOMY; TURMOR REMOVED RIGHT FEMOR; RIGHT PARTIAL SHOULDER REPLACEMENT. Infectious Disease History: No Infectious Disease History: Reports: Hx Shingles Denies: Hx Hepatitis, Hx Human Immunodeficiency Virus (HIV), Traveled Outside the [place] in Last 30 Days - Family History Known Family History: Positive: Other - negative breast CA Family History: No FHx of breast CA - Social History Alcohol Use: Rare Hx Substance Use: No Substance Use Type: Reports: None Hx Tobacco Use: No Smoking Status (MU): Never Smoked Tobacco Review of Systems Positive: Fever - low-grade Positive: Chest Pain Positive: Shortness Of Breath, Cough - nonproductive Positive: Abdominal Pain - suprapubic, Vomiting, Nausea Positive: Headache All Other Systems Reviewed And Are Negative: Yes Physical Exam - Summary Physical Exam Summary: Appearance: Well-appearing, Well-nourished, lying in bed comfortably Skin: Warm, dry, no obvious rash Eyes: sclera anicteric, no conjunctival pallor ENT: mucous membranes moist, pharynx appears normal Neck: Supple, nontender Respiratory: Clear to auscultation, no signs of respiratory distress Cardiovascular: Normal S1, S2. No murmurs. Normal distal pulses in tibial and radial bilaterally. Abdomen: Soft, nontender, normal active bowel sounds present Musculoskeletal: Normal, Strength/ROM Intact Neurological: A&Ox3, awake and alert, mentation is normal, speech is fluent and appropriate Psychiatric: affect is normal, does not appear anxious or depressed Triage Information Reviewed: Yes Vital Signs On Initial Exam: Initial Vitals Temp Pulse Resp BP Pulse Ox 97.9 F 84 18 174/94 97 07/15/18 21:14 07/15/18 21:14 07/15/18 21:14 07/15/18 21:14 07/15/18 21:14 Vital Signs Reviewed: Yes Diagnostics - Vital Signs Vital Signs Temp Pulse Resp BP Pulse Ox 07/15/18 21:29 78 20 97 07/15/18 21:27 79 13 162/86 97 07/15/18 21:14 97.9 F 84 18 174/94 97 - Laboratory Result Diagrams: 07/15/18 22:13 07/15/18 22:13 Lab Statement: Any lab studies that have been ordered have been reviewed, and results considered in the medical decision making process. - Radiology CXR Radiology Interpretation Completed By: Radiologist Summary of Radiographic Findings: No active disease. ED physician has reviewed this report. - EKG 21:19 Cardiac Rate: NL - 84 BPM Summary of EKG Findings: A-V dual-paced rhythm. No further analysis attempted due to paced rhythm. Re-Evaluation - Re-Evaluation First Eval Re-Evaluation Time: 23:41 Change: Improved Comment: She states that she is feeling better. We discussed discharge home. Chest Pain Course/Dx - Course Course Of Treatment: The patient is a 77 y/o F presenting to [facility] with a chief complaint of chest pain and nausea starting last night, resolving, and returning this morning with gradual worsening and vomiting onset this afternoon after eating dinner. She additionally c/o SOB, nonproductive cough, headache, low-grade fever, and diffuse suprapubic pain. She has a pacemaker for tachycardia and Afib. She denies additional cardiac issues. Upon physical exam, the patient exhibits no acute abnormalities. In the ED course, the patient was given Zofran. Blood work reveals slightly elevated AST and alkaline phosphatase. Influenza tests are negative. EKG reveals A-V dual-paced rhythm with some inhibition. CXR is negative. She is diagnosed with nausea and viral syndrome. She will be discharged home with prescription for Zofran, education materials, and follow up with PCP in 2 days. She agrees with this plan and understands the need for return to the ED for any new or worsening symptoms. - Diagnoses Provider Diagnoses: Viral syndrome, Nausea Discharge - Sign-Out/Discharge Documenting (check all that apply): Patient Departure - Patient will be discharged home. - Discharge Plan Condition: Good Disposition: HOME Prescriptions: Ondansetron ODT TAB* [Zofran 4 MG Odt TAB*] 8 mg PO Q6H PRN #10 tab.odt PRN Reason: Nausea Patient Education Materials: Acute Nausea and Vomiting (ED), Viral Syndrome (ED ) Referrals: Jojo Clark MD [Primary Care Provider] - 2 Days (If you start feeling worse through tomorrow, we should see you back. I expect you to be improving by Tuesday, if not, contact your PCP for further instructions.) Additional Instructions: Follow up with your primary care physician in 2-3 days. Return to the emergency department for any new or worsening symptoms. - Billing Disposition and Condition Condition: GOOD Disposition: Home - Attestation Statements Document Initiated by Rima: Yes Documenting Scribe: Ana Nickerson Provider For Whom Rima is Documenting (Include Credential): Dr. Abe Gusman MD Scribe Attestation: Ana Burleson scribed for Dr. Abe Gusman MD on 07/15/18 at 2348. Scribe Documentation Reviewed: Yes Provider Attestation: The documentation as recorded by the Ana velazquez accurately reflects the service I personally performed and the decisions made by me, Dr. Abe Gusman MD Status of Scrgreg Document: Viewed
[2018-07-15 23:15] LABS: ABS Basophils 0 10^3/ul (0-0.2); ABS Eosinophils 0.1 10^3/ul (0-0.6); ABS Monocytes 1.1 10^3/ul (0-0.8); ABS Neutrophils 6.5 10^3/ul (1.5-7.7); ABS Nucleated RBC 0 10^3/ul; Eosinophil % 1.3 %; Hematocrit 43 % (35-47); Hemoglobin 14.2 g/dl (12.0-16.0); Lymphocyte % 11.6 %; Mean Corpuscular HGB Conc 33 g/dl (31-36); Mean Corpuscular Hemoglobin 31 pg (27-31); Mean Corpuscular Volume 93 fL (80-97); Mean Platelet Volume 8.5 fL (7.4-10.4); Nucleated Red Blood Cells % 0; Platelet Count 183 10^3/ul (150-450); Red Blood Count 4.57 10^6/ul (4.00-5.40); Red Cell Distribution Width 14 % (10.5-15); White Blood Count 8.8 10^3/ul (3.5-10.8)
[2018-07-15 23:33] LABS: Albumin/Globulin Ratio 1.4 (1-3); BUN/Creatinine Ratio 17.6 (8-20); Calcium 9.2 mg/dL (8.6-10.3); EGFR Non-African American 59.8 (>60); Globulin 2.9 g/dL (2-4); Potassium 4.1 mmol/L (3.5-5.0); Total Bilirubin 0.7 mg/dL (0.2-1.0); Total Protein 6.9 g/dL (6.4-8.9)
[2018-07-15] MEDS ORDERED: Ondansetron ODT TAB* 4 MG SL ONE (23:45)
[2018-07-16 00:01] VITALS: BP 158/67
== END 2018-07-16 00:01 | disposition home or self-care (01) ==
LOC: ED 21:12
DX: B34.9 Viral infection, unspecified (principal); R11.2 Nausea with vomiting, unspecified; R07.9 Chest pain, unspecified; R06.02 Shortness of breath; R50.9 Fever, unspecified; Z88.0 Allergy status to penicillin; Z79.01 Long term (current) use of anticoagulants
CPT/HCPCS: 36415; 71046; 80053; 84484; 85025; 85379; 93005; 99283; A9270-GY

== ENCOUNTER 2018-07-17 15:20 | Inpatient (IN) | payer MEDICARE ==
[2018-07-17] MEDS ORDERED: Ondansetron INJ* 2 MG/ML VIAL IV ONE (15:31)
--- NOTE | 2018-07-17 15:38 | ED ---
Shortness of Breath - HPI Summary HPI Summary: A 77 y/o female brought in by [facility] ambulance presents to [facility] with a chief complaint of SOB since 07/14/18. She does not use breathing treatments at home. She also c/o N/V since 07/14/18. She had CP on 07/15/17 but denies any current CP. She currently reports cough and abdominal pain. She rates her pain as a 10/ 10. She denies a Hx of CHF or COPD. Her family reports that she is losing weight. She sleeps with three pillows at night. She has a fever of 100.2 in the ED. She reports having a BM the morning of 07/17/18. She denies Chills, Erythema (eyes), Sore throat, Chest pain, Dysuria, Hematuria, Myalgia, Edema, Rash and Dizziness - History of Current Complaint Chief Complaint: EDRespiratoryDistress Time Seen by Provider: 07/17/18 15:27 Hx Obtained From: Patient, Family/Employment Appeals Examiner, EMS Onset/Duration: Sudden Onset, Lasting Days, Still Present Current Severity: Severe Dyspnea At: Rest Aggrevating Factors: Nothing Associated Signs & Symptoms: Chest Pain w/Cough, Fever - Allergy/Home Medications Allergies/Adverse Reactions: Allergies Allergy/AdvReac Type Severity Reaction Status Date / Time adhesive tape Allergy Rash Verified 07/17/18 15:34 Beta-Blockers Allergy Unknown Verified 07/17/18 15:34 (Beta-Adrenergic Bloc Reaction Details erythromycin base Allergy Unknown Verified 07/17/18 15:34 Reaction Details lidocaine [From Lidoderm] Allergy Unknown Verified 07/17/18 15:34 Reaction Details meperidine [From Demerol] Allergy Unknown Verified 07/17/18 15:34 Reaction Details nortriptyline Allergy Unknown Verified 07/17/18 15:34 Reaction Details NSAIDS (Non-Steroidal Allergy See Comment Verified 07/17/18 15:34 Anti-Inflamma oxycodone Allergy Altered Verified 07/17/18 15:34 Mental Status Penicillins Allergy Rash Verified 07/17/18 15:34 propoxyphene [From Darvon] Allergy Unknown Verified 07/17/18 15:34 Reaction Details Sulfa (Sulfonamide Allergy Rash Verified 07/17/18 15:34 Antibiotics) tetanus toxoid, adsorbed Allergy Unknown Verified 07/17/18 15:34 Reaction Details hydrocodone AdvReac Altered Verified 07/17/18 15:34 Mental Status Home Medications: Home Medications Atenolol TAB* [Tenormin TAB* 50 MG] 25 mg PO BID 07/17/18 [History Confirmed 01/26] Escitalopram (NF) [Lexapro 10 mg (NF)] 10 mg PO DAILY 07/17/18 [History Confirmed 07/17/18] HYDROcodone/ACETAMIN 5-325 MG* [[place] 5-325 TAB*] 1 - 2 tab PO Q4H PRN 07/17/18 [History Confirmed 07/17/18] Levothyroxine TAB* [Synthroid TAB*] 150 mcg PO DAILY 07/17/18 [History Confirmed 07/17/18] Multivitamins/Minerals TAB* [Theragran/minerals TAB*] 1 tab PO DAILY 07/17/18 [ History Confirmed 07/17/18] ValACYclovir (*) [Valtrex 500 mg (*)] 500 mg PO DAILY 07/17/18 [History Confirmed 07/17/18] Warfarin TAB(*) [Coumadin TAB(*)] 2.5 mg PO MOWE 07/17/18 [History Confirmed 01/26] Warfarin TAB(*) [Coumadin TAB(*)] 5 mg PO SUTUTHFRSA 07/17/18 [History Confirmed 07/17/18] PMH/Surg Hx/FS Hx/Imm Hx Endocrine/Hematology History: Reports: Hx Anticoagulant Therapy, Hx Thyroid Disease - hypo Denies: Hx Diabetes Cardiovascular History: Reports: Hx Atrial Fibrillation, Hx Auto Implanted Cardiovert Defib, Hx Hypercholesterolemia, Hx Hypertension, Hx Pacemaker/ICD - 3 //15, Other Cardiovascular Problems/Disorders - SVT Respiratory History: Denies: Hx Asthma, Hx Chronic Obstructive Pulmonary Disease (COPD) GI History: Denies: Hx Ulcer History: Reports: Hx Renal Disease, Other Problems/Disorders - GERD Musculoskeletal History: Reports: Other Musculoskeletal History - Right Shoulder Pain Denies: Hx Osteoporosis Psychiatric History: Reports: Hx Depression - Cancer History Hx Chemotherapy: No Hx Radiation Therapy: No - Surgical History Surgery Procedure, Year, and Place: PACEMAKER-1997/2012/2014; HYSTERECTOMY; TURMOR REMOVED RIGHT FEMOR; RIGHT PARTIAL SHOULDER REPLACEMENT. Infectious Disease History: No Infectious Disease History: Reports: Hx Shingles Denies: Hx Hepatitis, Hx Human Immunodeficiency Virus (HIV), Traveled Outside the [place] in Last 30 Days - Family History Known Family History: Positive: Other - negative breast CA Family History: No FHx of breast CA - Social History Alcohol Use: Rare Hx Substance Use: No Substance Use Type: Reports: None Hx Tobacco Use: No Smoking Status (MU): Never Smoked Tobacco Review of Systems Positive: Fever. Negative: Chills Negative: Erythema Negative: Sore Throat Negative: Chest Pain Positive: Shortness Of Breath, Cough Positive: Abdominal Pain, Vomiting, Nausea Negative: dysuria, hematuria Negative: Myalgia, Edema Negative: Rash Neurological: Negative - dizziness All Other Systems Reviewed And Are Negative: Yes Physical Exam - Summary Physical Exam Summary: Constitutional: Drowsy Alert. (-) Distressed Skin: Warm, Dry HENT: Normocephalic; Atraumatic Eyes: Conjunctiva normal Neck: Musculoskeletal ROM normal neck. (-) JVD, (-) Stridor, (-) Tracheal deviation Cardio: Rhythm regular, rate normal, Heart sounds normal; Intact distal pulses; The pedal pulses are 2+ and symmetric. Radial pulses are 2+ and symmetric. (-) Murmur Pulmonary/Chest wall: Tachypnic, Rhonchi bilaterally (-) Respiratory distress, ( -) Wheezes, (-) Rales Abd: Soft, (-) epigastric tenderness, (-) Distension, (-) Guarding, (-) Rebound Musculoskeletal: (-) Edema, acessory muscle usage Lymph: (-) Cervical adenopathy Neuro: Alert, Oriented x3 Psych: Mood and affect Normal Triage Information Reviewed: Yes Vital Signs On Initial Exam: Initial Vitals Temp Pulse Resp BP Pulse Ox 100.2 F 85 34 155/64 90 07/17/18 15:24 07/17/18 15:24 07/17/18 15:24 07/17/18 15:24 07/17/18 15:24 Vital Signs Reviewed: Yes Diagnostics - Vital Signs Vital Signs Temp Pulse Resp BP Pulse Ox 07/17/18 15:24 100.2 F 85 34 155/64 90 - Laboratory Result Diagrams: 07/18/18 05:39 07/18/18 05:39 Lab Statement: Any lab studies that have been ordered have been reviewed, and results considered in the medical decision making process. - Radiology CXR Radiology Interpretation Completed By: Radiologist Summary of Radiographic Findings: LOW LUNG VOLUMES, NO EVIDENCE FOR ACUTE DISEASE. ED provider has reviewed this imaging report. - EKG 15:30 Cardiac Rate: Other Rate - Paced rhythm at 77 bpm Summary of EKG Findings: EKG at 15:30 showed paced rhythm at 77 bpm. No STEMI. Re-Evaluation - Re-Evaluation First Eval Re-Evaluation Time: 16:10 Change: Improved Comment: O2 at 95 Second Eval Re-Evaluation Time: 17:20 Change: Unchanged Comment: O2 Sat at 84 when she was sleeping. Her O2 Sat anastasia back up to 98. Third Eval Re-Evaluation Time: 17:30 Change: Unchanged Comment: Mild tenderness RUQ, rates her pain as 1/10. Primary complaint is nausea. Course/Dx - Course Course Of Treatment: A 77 y/o female brought in by [facility] ambulance presents to [facility] with a chief complaint of SOB since 07/14/18. The physical exam revealed that she was drowsy, tachypnic, had acessory muscle usage and rhonchi bilaterally. CXR impression: LOW LUNG VOLUMES, NO EVIDENCE FOR ACUTE DISEASE. IV fluids were withheld due to the prominent interstitial markings and bilateral rales - rule out CHF. In the ED course she was given Zofran and Cleocin IV and Albuterol INH. Lab results obtained. Troponin high at 0.18. Lactic acid high at 2.9. EKG at 15:30 showed paced rhythm at 77 bpm[address] Case discussed with Dr. Santoyo, Director Of Integrated Marketing, who accepted the patient for admission. The patient is agreeable with this plan. - Diagnoses Provider Diagnoses: Respiratory failure, Hypoxia, Sepsis, Aspiration pneumonia - Physician Notifications Discussed Care of Patient With: Felisa Santoyo Time Discussed With Above Provider: 16:20 Instructed by Provider To: Will See In ED - Critical Care Time Critical Care Time: 30-74 min - 60 mins Discharge - Sign-Out/Discharge Documenting (check all that apply): Patient Departure - admit - Discharge Plan Condition: Fair Disposition: ADMITTED TO [facility] - Billing Disposition and Condition Condition: FAIR Disposition: Admitted to [facility] - Attestation Statements Document Initiated by Scribe: Yes Documenting Scribe: Ryan Boston Provider For Whom Scribe is Documenting (Include Credential): Satish Fan MD Scribe Attestation: I, Ryan Boston, scribed for Satish Fan MD on 07/18/18 at 1017. Scribe Documentation Reviewed: Yes Provider Attestation: The documentation as recorded by the scribe, Ryan Boston accurately reflects the service I personally performed and the decisions made by me, Satish Fan MD Status of Scribe Document: Viewed Consult Consult: At 17:[address] Santoyo, central services tech, about the results. She accepted the patient for admission.
[2018-07-17] MEDS ORDERED: Ondansetron INJ* 2 MG/ML VIAL ONE (15:42)
[2018-07-17] MEDS ORDERED: Clindamycin 600 MG IVPREMIX(* 600 MG/50 ML SDV IV ONE (15:47)
[2018-07-17] MEDS ORDERED: cefTRIAXone(*) 1 GM in NS 0.9% 50 ML* 50 ML IVPB ONE (15:47)
[2018-07-17] MEDS ORDERED: Albuterol/Ipratropium NEB.SOL* Albuterol 2.5 MG/Ipratropium 0.5 MG 3 ML INH ONE (16:00)
[2018-07-17] MEDS ORDERED: Ondansetron INJ* 2 MG/ML VIAL IV PRN (16:31)
[2018-07-17] MEDS ORDERED: Polyethylene Glycol 3350* 17 GM PACKET PO PRN (16:32)
[2018-07-17] MEDS ORDERED: Albuterol/Ipratropium NEB.SOL* Albuterol 2.5 MG/Ipratropium 0.5 MG 3 ML INH PRN (16:41)
--- NOTE | 2018-07-17 16:46 | HP ---
History of Present Illness - History of Present Illness Reason for Visit: shortness of breath, chest pain and nausea History of Present Illness: 77 yo F with PMH including thyroid cancer s/p resection and radiation, chronic pain, chronic (9+mo hx) of nausea, constipation and diarrhea was seen recently in the ED on 07/15 with complaints of nausea, vomiting and chest pain. At that time WBC was normal, flu screen was negative anc CXR did not show an acute process. EKG demonstrated only an AV dual-paced rhythm and troponin was negative. She was dicharged home. She returns to the ED today with complaints of ongoing nausea, vomiting and shortness of breath. CXR demonstrates new LLL pneumonia and elevated WBC. Sepsis markers positive. Also found to have hyperbilirubinemia. 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 Review of Systems - Review of Systems Constitutional: Positive: Fever, Weakness, Malaise Eyes: Negative: Pain, Vision Change, Conjunctivae Inflammation, Eyelid Inflammation, Redness, Other ENT: Positive: Nose Congestion Respiratory: Positive: Cough, Shortness of Breath, SOB with Excertion, Pleuritic Pain, Sputum Cardiovascular: Negative: Chest Pain, Palpitations, Orthopnea, Paroxysmal Noc. Dyspnea, Edema, Light Headedness, Other Gastrointestinal: Positive: Nausea, Vomiting Genitourinary: Negative: Dysuria, Frequency, Incontinence, Hematuria, Retention , Other Musculoskeletal: Positive: Shoulder Pain - chronic, Back Pain - chronic Neurological: Positive: Weakness - generalized - Medications/Allergies Allergies/Adverse Reactions: Allergies Allergy/AdvReac Type Severity Reaction Status Date / Time adhesive tape Allergy Rash Verified 07/17/18 15:34 Beta-Blockers Allergy Unknown Verified 07/17/18 15:34 (Beta-Adrenergic Bloc Reaction Details erythromycin base Allergy Unknown Verified 07/17/18 15:34 Reaction Details lidocaine [From Lidoderm] Allergy Unknown Verified 07/17/18 15:34 Reaction Details meperidine [From Demerol] Allergy Unknown Verified 07/17/18 15:34 Reaction Details nortriptyline Allergy Unknown Verified 07/17/18 15:34 Reaction Details NSAIDS (Non-Steroidal Allergy See Comment Verified 07/17/18 15:34 Anti-Inflamma oxycodone Allergy Altered Verified 07/17/18 15:34 Mental Status Penicillins Allergy Rash Verified 07/17/18 15:34 propoxyphene [From Darvon] Allergy Unknown Verified 07/17/18 15:34 Reaction Details Sulfa (Sulfonamide Allergy Rash Verified 07/17/18 15:34 Antibiotics) tetanus toxoid, adsorbed Allergy Unknown Verified 07/17/18 15:34 Reaction Details hydrocodone AdvReac Altered Verified 07/17/18 15:34 Mental Status Exam - Exam Vital Signs: Vital Signs (72 hours) 07/17/18 07/17/18 07/17/18 15:24 15:27 15:29 Temperature 100.2 F Pulse Rate 85 86 83 Respiratory 34 20 30 Rate Blood Pressure 155/64 155/64 (mmHg) O2 Sat by Pulse 90 90 88 Oximetry 07/17/18 07/17/18 15:44 16:19 Temperature Pulse Rate 76 75 Respiratory 26 27 Rate Blood Pressure 143/52 (mmHg) O2 Sat by Pulse 88 94 Oximetry General: Other - awake but attention drifts during exam. appears uncomfortable/ mildly distressed HEENT: Atraumatic Lungs: Other - coarse crackles bilaterally Cardiovascular: Regular rate Abdomen: Soft, No tenderness Extremities: No edema Skin: No significant lesion Neurological: Normal speech, Other - follows commands. Psych/Mental Status: Other - fatigued but arousable Assessment/Plan - Assessment/Plan Assessment: 77 yo F with 3 day history of shortness of breath, chest pain, nausea and vomiting after eating at [employer]. Initially seen in ED on 07/15 and workup felt consistent with acute viral infection. Returns to ED on 07/17 for worsening shortness of breath. CXR shows new LLL, WBC elevated Plan: Cardiovascular: (1) Benign essential HTN; (2) Pacemaker in situ; (3) Troponin elevation, demand mediated -- HR 76-86 -- SBP 143-155 -- Telemetry -- Troponin 0.18, follow trend, likely demand mediated. Not currently complaining of chest pain, though she was on Tuesday. Will check TTE. Resume home anticoagulation, betablocker and statin, start ASA -- resume home warfarin -- resume home atenolol -- resume home atorvastatin Home meds: Warfarin, Atenolol, Atorvastatin Pulmonary: (1) New LLL pneumonia, (2) acute hypoxic respiratory failure; (3) hx of bronchitis -- RR 20-34 -- sats 100% on Vapotherm -- wean vapotherm as able -- CXR, 07/17: New LLL infiltrate as compared to film on 07/15 -- PRN Duonebs -- Broad spectrum abx for PNA coverage Home meds: None Gastrointestinal: (1) Acute nausea and vomiting; (2) Hyperbilirubinemia; (3) hx of constipation/diarrhea and nausea over the past 9+ months -- LFTs Tbili 2.4 ALK 204 AST 184 [id number] -- US gall bladder pending - if positive will consult GI team -- diet: Clear liquids if US negative -- bowel regimen: PRN Miralax -- ulcer prophylaxis: Protonix -- Zofran for nausea -- Broadspectrum ABX for GI coverage Home meds: Omeprazole, Zofran Endocrine: (1) hx of thyroid cancer s/p thyroidectomy and radiation -- monitor BGs -- resume home synthroid -- check TSH with AM labs Home meds: Synthroid Renal: (1) chronic stress incontinence; ( Chronic kidney distase -- UOP: none recorded yet -- Cr 0.95 -- Lytes Na 132, starting NS gtt, follow trend K 4.1 Ca 9.2 Mag ordered for AM Phos ordered for AM -- IVF: NS @ 150 ml/hr Home meds: None Infectious disease: (1) Left lower lobe pneumonia; (2) Sepsis -- Tmax 100.2F -- WBC 18.9 -- Micro 07/17 Flu screen pending Urinalysis ordered blood ordered sputum ordered 07/15 Flu screen negative -- ABX Rocephin Azithromycin Home meds: PRN Valacyclovir Neurologic: (1) chronic back and shoulder pain; () chronic bilateral leg neuropathy; () chronic headaches -- resume home lexapro -- resume home gabapentin -- PT OT Home meds: Lexapro, [place] Hematological: No acute issues -- Hgb 14.1 -- Plt pending -- Coags ordered -- DVT prophylaxis: resume home warfarin Home meds: Warfarin Metabolic: (1) Lactic acidosis -- Lactic acid 2.9, follow trend -- IVF rsuscitation Home meds: None Other: Home meds: Vitamin D, MVI Deep vein thrombosis prophylaxis: Warfarin Dietary: Protonix Condition: critical Prognosis: guarded Code status: full Disposition: admit to ICU Cumulative time spent in the care of this patient (excluding any procedure time) : at least 50 minutes. Patient care included clinical interview (with patient and/or family), bedside exam of the patient, review of labs, x-rays, and other ancillary data, coordination of (respiratory, nursing care, review of patient's records, discussion regarding patients management with involved consultants, primary physician, pharmacists, and other healthcare personnel (dietary, case management , physical/occupational therapy etc.)
[2018-07-17 16:49] LABS: Hematocrit 43 % (35-47); Hemoglobin 14.1 g/dl (12.0-16.0); Mean Corpuscular HGB Conc 33 g/dl (31-36); Mean Corpuscular Hemoglobin 31 pg (27-31); Mean Corpuscular Volume 94 fL (80-97); Red Cell Distribution Width 14 % (10.5-15); White Blood Count 18.9 10^3/ul (3.5-10.8)
[2018-07-17 16:50] LABS: Albumin 4.2 g/dL (3.2-5.2); Calcium 9.2 mg/dL (8.6-10.3); Potassium 4.1 mmol/L (3.5-5.0); Total Bilirubin 2.4 mg/dL (0.2-1.0)
[2018-07-17 16:56] LABS: Albumin/Globulin Ratio 1.3 (1-3); BUN/Creatinine Ratio 23.2 (8-20); EGFR African American 68.8 (>60); EGFR Non-African American 56.9 (>60); Globulin 3.2 g/dL (2-4); Total Protein 7.4 g/dL (6.4-8.9)
[2018-07-17 17:04] LABS: Troponin I 0.18 ng/mL (<0.04)
[2018-07-17 17:19] LABS: ABS Basophils 0 10^3/ul (0-0.2); ABS Eosinophils 0 10^3/ul (0-0.6); ABS Lymphocytes 0.6 10^3/ul (1.0-4.8); ABS Neutrophils 16.3 10^3/ul (1.5-7.7); ABS Nucleated RBC 0 10^3/ul; Eosinophil % 0 %; Nucleated Red Blood Cells % 0.2
[2018-07-17] MEDS ORDERED: PROCHLORPERAZINE INJ 5 MG/ML 2 ML VIAL IV PRN (17:23)
[2018-07-17] MEDS: NS 0.9% 1000 ML** 1,000 ML IV SCH (17:56)
[2018-07-17] MEDS ORDERED: Acetaminophen TAB* 325 MG PO PRN (18:01)
[2018-07-17] MEDS ORDERED: Morphine VIAL* 4 MG/ML VIAL (1 ml vial) IV PRN (18:02)
[2018-07-17] MEDS ORDERED: Propofol* 100 ML ONE (18:32)
[2018-07-17 19:23] LABS: Mean Platelet Volume 8.7 fL (7.4-10.4); Platelet Count 155 10^3/ul (150-450)
--- NOTE | 2018-07-17 19:40 | OP ---
Operative Report - Blank - Operative Report Date of Operation: 07/17/18 Note: Procedure: Intubation Consent obtained: Verbal, from daughter Time out performed: Yes Indications: Respiratory distress Intubation method: Video-assisted Patient status: Unconscious Preoxygenation: BVM Pretreatment meds: Versed SEdation: Etomidate Paralytic: None Laryngoscope size: 4Mac ETT size: 8.0 F Type: Cuffed # of attempts: 1 Cords visualized: Yes Post procedure assessment: CO2 detector Breath sounds: Reduced on left Cuff inflated: Yes ETT to lip: 22cm Tube secured with: ETT pena CXR: ETT in good position PT tolerated the procedure well with no immediate complications
--- NOTE | 2018-07-17 19:47 | OP ---
Operative Report - Blank - Operative Report Date of Operation: 07/17/18 Note: Procedure: Central Line placement Consent obtained: Verbal, from daughter Time out performed: Yes Indications: Vascular access Anesthesia: Local infiltration Local anesthetic: 1% Lidocaine 10 ml Preparation: Chlorhexadine swab Skin prep agen dried: skin prep agent dried prior to procedure Sterile barrier: all five maximal sterile barriers used - gloves, gown, cap, mask and large sterile sheet Hand hygiene: Hand hygiene performed prior to central venous catheter insertion Location: Left IJ attempted, good flash but unable to thread. Site aborted Right IJ attempted. Good flash but difficulty threading. Site aborted Left femoral vein - successful Patient position: trendelenberg used for IJ attempts. Flat position for femoral attempt Catheter type: Triple lumen Catheter size: 7F Pre-procedure: landmarks identified Ultrasound guidance: Yes Sterile ultrasound technique: Sterile gel and sterile probe covers were used Number of attempts: 3 Successful placement: Yes Post-procedure: Line sutured, dressing applied Assessment: blood return through all ports, free fluid flow, no pneumothorax on CXR Complications: None Patient tolerated the procedure with no immediate complications
[2018-07-17] MEDS ORDERED: NS 0.9% 1000 ML** 1,000 ML IV ONE ×2 (19:52→21:00)
[2018-07-17] MEDS ORDERED: Iodixanol* (CONTRAST) 320 MG/ML 100 ML SDV IV ONE (19:59)
[2018-07-17] MEDS ORDERED: fentaNYL INFUSION 50 MCG/ML* 2,500 MCG/50 ML BAG IV SCH (20:00)
[2018-07-17 20:18] LABS: Urine Appearance Cloudy; Urine Bacteria 1+ (Absent); Urine Bilirubin Negative (Negative); Urine Blood 1+ (Negative); Urine Color Amber; Urine Glucose Negative (Negative); Urine Granular Casts Present (Absent); Urine Ketones Negative (Negative); Urine Nitrite Negative (Negative); Urine Protein 2+(100 mg/dL) (Negative); Urine Red Blood Cell Absent (Absent); Urine Specific Gravity 1.024 (1.010-1.030); Urine Squamous Epithelial Cell Present (Absent); Urine Urobilinogen Positive (Negative); Urine White Blood Cell Trace(0-5/hpf) (Absent)
[2018-07-17] MEDS: Acetaminophen ADULT LIQ* 650 MG/20.3 ML UDC PO PRN (20:22)
[2018-07-17 20:37] LABS: Hematocrit 38 % (35-47); Hemoglobin 12.4 g/dl (12.0-16.0); Mean Corpuscular HGB Conc 33 g/dl (31-36); Mean Corpuscular Hemoglobin 31 pg (27-31); Mean Corpuscular Volume 94 fL (80-97); Mean Platelet Volume 9.7 fL (7.4-10.4); Platelet Count 158 10^3/ul (150-450); Red Blood Count 4.03 10^6/ul (4.00-5.40); Red Cell Distribution Width 13 % (10.5-15); White Blood Count 13.7 10^3/ul (3.5-10.8)
[2018-07-17] MEDS: Chlorhexidine MOUTHWASH 0.12%* 15 ML UDC TOPICAL SCH (20:41)
[2018-07-17 20:47] LABS: Magnesium 1.8 mg/dL (1.9-2.7); Phosphorus 1.8 mg/dL (2.5-5.0)
[2018-07-17 21:20] LABS: Albumin 3.2 g/dL (3.2-5.2); Albumin/Globulin Ratio 0.9 (1-3); BUN/Creatinine Ratio 24.5 (8-20); Calcium 8.5 mg/dL (8.6-10.3); EGFR African American 63.4 (>60); EGFR Non-African American 52.4 (>60); Globulin 3.4 g/dL (2-4); Potassium 3.7 mmol/L (3.5-5.0); Total Bilirubin 1.9 mg/dL (0.2-1.0); Total Protein 6.6 g/dL (6.4-8.9)
[2018-07-17] MEDS ORDERED: Magnesium Sulfate 1 GM IV* 1 GM/100 ML BAG IV ONE (21:24)
[2018-07-17] MEDS ORDERED: Sodium Phosphate INJ* 30 MMOLE in NS 0.9% 250 ML* 250 ML IVPB ONE (21:24)
[2018-07-17] MEDS ORDERED: Warfarin TAB(*) 2.5 MG NG TUBE SCH (22:00)
[2018-07-17 22:32] LABS: Influenza A Molecular NEGATIVE (Negative); Influenza B Molecular NEGATIVE (Negative)
[2018-07-17] MEDS: Insulin REGULAR(*) 1 UNITS UNIT SUBCUT SCH (22:39)
[2018-07-17] MEDS: Pantoprazole IV* 40 MG IV SCH (22:44)
[2018-07-17] MEDS: Atorvastatin* 80 MG TAB PO SCH (22:44)
[2018-07-17] MEDS ORDERED: Ibuprofen ADULT LIQ* 600 MG/30 ML UDC PO ONE (23:00)
[2018-07-17] MEDS: Propofol* 100 ML IV SCH (23:50)
[2018-07-18] MEDS ORDERED: NS 0.9% 500 ML* 500 ML IV ONE (00:19)
[2018-07-18] MEDS: Chlorhexidine MOUTHWASH 0.12%* 15 ML UDC TOPICAL SCH ×6 (00:26→21:44)
[2018-07-18] MEDS ORDERED: Norepinephrine 16MCG/ML IVPRE* 4,000 MCG/250 ML BAG IV SCH (01:00)
[2018-07-18] MEDS: Norepinephrine VIAL* 4 MG in NS 0.9% 250 ML* 246 ML IV SCH ×2 (01:15→15:50)
[2018-07-18] MEDS: NS 0.9% 1000 ML** 1,000 ML IV SCH ×3 (01:28→19:30)
[2018-07-18 01:38] LABS: INR 1.98 (0.77-1.02)
[2018-07-18] MEDS: Insulin REGULAR(*) 1 UNITS UNIT SUBCUT SCH ×3 (03:55→09:31)
[2018-07-18 05:49] LABS: Hematocrit 38 % (35-47); Hemoglobin 12.7 g/dl (12.0-16.0); Mean Corpuscular HGB Conc 33 g/dl (31-36); Mean Corpuscular Hemoglobin 31 pg (27-31); Mean Corpuscular Volume 94 fL (80-97); Platelet Count 171 10^3/ul (150-450); Red Blood Count 4.09 10^6/ul (4.00-5.40); Red Cell Distribution Width 13 % (10.5-15); White Blood Count 15.9 10^3/ul (3.5-10.8)
[2018-07-18] MEDS ORDERED: Levothyroxine TAB* 100 MCG TAB PO SCH (06:00)
[2018-07-18 06:06] LABS: Calcium 7.8 mg/dL (8.6-10.3); EGFR Non-African American 56.2 (>60); Phosphorus 4.7 mg/dL (2.5-5.0); Potassium 3.4 mmol/L (3.5-5.0)
[2018-07-18] MEDS ORDERED: NS 0.9% 1000 ML** 1,000 ML IV ONE (06:13)
[2018-07-18] MEDS: Levothyroxine TAB* 150 MCG TAB PO SCH (06:35)
[2018-07-18] MEDS: Propofol* 100 ML IV SCH ×2 (06:58→19:01)
[2018-07-18 07:14] LABS: Amylase 14 U/L (29-103)
[2018-07-18] MEDS ORDERED: Midazolam* 1 MG/ML 2 ML VIAL (2 MG) ONE (07:15)
[2018-07-18 07:26] LABS: Troponin I 0.16 ng/mL (<0.04)
--- NOTE | 2018-07-18 07:30 | PN ---
Date of Service: 07/18/18 - HD 2 Critical Care Services: 77 yo F with PMH including thyroid cancer s/p resection and radiation, chronic pain, chronic (9+mo hx) of nausea, constipation and diarrhea was seen recently in the ED on 07/15 with complaints of nausea, vomiting and chest pain. At that time WBC was normal, flu screen was negative anc CXR did not show an acute process. EKG demonstrated only an AV dual-paced rhythm and troponin was negative. She was dicharged home. She returns to the ED today with complaints of ongoing nausea, vomiting and shortness of breath. CXR demonstrates new LLL pneumonia and elevated WBC. Sepsis markers positive. Also found to have hyperbilirubinemia. Admitted to ICU for further workup and care Shortly after arrival to ICU she developed worsened hypoxia and became unresponsive. She was intubated for acute hypoxic respiratory failure and airway protection. A central line was placed for medication administration and lab draws. Repeat lactic acid bumped up to 3.0. Bolused an additional 2L NL with subsequent improvement to 2.[address] of head and abdomen were negative for acute pathology aside from known pneumonia and some mild nonspecific armani-adrenal fat stranding. She had a brief episode of lower extremity extention with twitching which resolved spontaneously Family updated regarding clinical course and plan of care 07/18: Overnight she required the initiation of Levophed to maintain MAPs > 65. This AM she had a second episode of lower extremity extention with twitching and periorbital twitching. Given Ativan and Keppra load and EEG ordered. Vital Signs: Temp Pulse Resp BP SpO2 FiO2 98.2 F 70 14 148/53 100 60 07/18/18 07:16 07/18/18 07:16 07/18/18 07:00 07/18/18 07:16 07/18/18 07:16 07/18 04:00 Physical Exam: Gen: intubated and sedated HEENT: periorbital twitching timed to lower extremity twitching Lungs: expiratory wheezes on right, crackles bilaterally Cardiac: RRR Abdomen: soft NTND Extremities: warm, dry, minimal edema. Lower extremities extended and rhythmically twitching Neuro: Periorbital muscles and lower extremities twitching. Fluid Balance (Past 24 Hours): I= O= Net Intake & Output 07/16/18 07/17/18 07/18/1809/19 06:59 06:59 06:59 06:59 Intake Total 4094 Output Total 540 30 Balance 3554 -30 Weight 162 lb 0.636 oz Intake: IV Fluids 3480 NS 3430 Medicated IV 614 Levophed 144 Magnesium 100 calcium gluconate 55 propofol 55 sodium Phosphate 260 Oral 0 Output: NG Tube Drainage Amount 100 Walsh 440 30 Other: Estimated Void Large # Voids 1 ADLs: Meal Record Start: 07/17/18 17: 39 Freq: 09,13,18 Status: Active Protocol: Created 07/17/18 17:39 System (Rec: 07/17/18 17:39 System [id number]) Document 07/17/18 18:00 [id number] (Rec: 07/17/18 18:09 [id number] ICU-C12) Intake and Output Start: 07/17/18 15: 30 Freq: Status: Active Protocol: Created 07/17/18 15:30 System (Rec: 07/17/18 15:30 System [id number]) Intake and Output Start: 07/17/18 17: 39 Freq: Q1HR Status: Active Protocol: Created 07/17/18 17:39 System (Rec: 07/17/18 17:39 System [id number]) Document 07/17/18 18:00 [id number] (Rec: 07/17/18 18:09 [id number] ICU-C12) Document 07/17/18 20:00 [id number] (Rec: 07/17/18 21:35 [id number] ICU-C12) Document 07/17/18 21:00 [id number] (Rec: 07/17/18 22:27 [id number] ICU-M27) Document 07/17/18 22:00 [id number] (Rec: 07/18/18 00:01 [id number] ICU-C12) Document 07/17/18 23:00 [id number] (Rec: 07/18/18 00:01 [id number] ICU-C12) Document 07/18/18 00:00 [id number] (Rec: 07/18/18 02:55 [id number] ICU-C12) Document 07/18/18 01:00 [id number] (Rec: 07/18/18 02:55 [id number] ICU-C12) Document 07/18/18 02:00 [id number] (Rec: 07/18/18 02:55 [id number] ICU-C12) Document 07/18/18 03:00 [id number] (Rec: 07/18/18 03:16 [id number] ICU-C12) Document 07/18/18 04:00 [id number] (Rec: 07/18/18 05:15 [id number] ICU-M27) Document 07/18/18 06:30 [id number] (Rec: 07/18/18 06:30 [id number] ICU-M27) Document 07/18/18 07:00 [id number] (Rec: 07/18/18 07:22 [id number] ICU-M27) Labs: Laboratory Results - last 24 hr 07/17/18 07/17/18 07/17/18 15:18 15:18 16:42 WBC 18.9 H RBC 4.50 Hgb 14.1 Hct 43 MCV 94 MCH 31 MCHC 33 RDW 14 Plt Count MPV TNP Neut % (Auto) 86.3 Lymph % (Auto) 3.0 Sandoval % (Auto) 10.5 Eos % (Auto) 0 Baso % (Auto) 0.2 Absolute Neuts (auto) 16.3 H Absolute Lymphs (auto) 0.6 L Absolute Monos (auto) 2.0 H Absolute Eos (auto) 0 Absolute Basos (auto) 0 Absolute Nucleated RBC 0 Nucleated RBC % 0.2 INR (Anticoag Therapy) Patient Temperature ABG pH ABG pH (Temp Correct) ABG pCO2 ABG pCO2 (Temp Corrct ABG pO2 ABG pO2 (Temp Correct ABG HCO3 ABG O2 Saturation ABG Base Excess Respiration Rate O2 Delivery Device Ventilator Type Vent Mode FiO2 Inspiratory Time PEEP Pressure Support Pressure Control EPAP IPAP BiPAP Sodium 132 L Potassium 4.1 Chloride 96 L Carbon Dioxide 23 Anion Gap 13 H BUN 22 Creatinine 0.95 Est GFR ( Amer) 68.8 Est GFR (Non-Af Amer) 56.9 BUN/Creatinine Ratio 23.2 H Glucose 219 H POC Glucose (mg/dL) Lactic Acid 2.9 H* Calcium 9.2 Phosphorus Magnesium Total Bilirubin 2.40 H D AST 184 H ALT 167 H Alkaline Phosphatase 204 H Ammonia Troponin I 0.18 H* Total Protein 7.4 Albumin 4.2 Globulin 3.2 Albumin/Globulin Ratio 1.3 Amylase Lipase Urine Color Urine Appearance Urine pH Ur Specific [place] Urine Protein Urine Ketones Urine Blood Urine Nitrate Urine Bilirubin Urine Urobilinogen Ur Leukocyte Esterase Urine WBC (Auto) Urine RBC (Auto) Ur Squamous Epith Cells Urine Bacteria Hyaline Casts Granular Casts Urine Glucose Urine Ascorbic Acid Influenza A (Rapid) Influenza B (Rapid) 07/17/18 07/17/18 07/17/18 18:08 19:10 19:10 WBC RBC Hgb Hct MCV MCH MCHC RDW Plt Count 155 MPV 8.7 Neut % (Auto) Lymph % (Auto) [place] % (Auto) Eos % (Auto) Baso % (Auto) Absolute Neuts (auto) Absolute Lymphs (auto) Absolute Monos (auto) Absolute Eos (auto) Absolute Basos (auto) Absolute Nucleated RBC Nucleated RBC % INR (Anticoag Therapy) Patient Temperature Not Reportable ABG pH 7.44 ABG pH (Temp Correct) Not Reportable ABG pCO2 39 ABG pCO2 (Temp Corrct Not Reportable ABG pO2 60 L ABG pO2 (Temp Correct Not Reportable ABG HCO3 26.6 ABG O2 Saturation 93.5 L ABG Base Excess 2.3 H Respiration Rate Not Reportable O2 Delivery Device vapotherm Ventilator Type Not Reportable Vent Mode Not Reportable FiO2 100 Inspiratory Time Not Reportable PEEP Not Reportable Pressure Support Not Reportable Pressure Control Not Reportable EPAP Not Reportable IPAP Not Reportable BiPAP Not Reportable Sodium Potassium Chloride Carbon Dioxide Anion Gap BUN Creatinine Est GFR ( Amer) Est GFR (Non-Af Amer) BUN/Creatinine Ratio Glucose POC Glucose (mg/dL) Lactic Acid 3.0 H* Calcium Phosphorus Magnesium Total Bilirubin AST ALT Alkaline Phosphatase Ammonia Troponin I Total Protein Albumin Globulin Albumin/Globulin Ratio Amylase Lipase Urine Color Urine Appearance Urine pH Ur Specific [place] Urine Protein Urine Ketones Urine Blood Urine Nitrate Urine Bilirubin Urine Urobilinogen Ur Leukocyte Esterase Urine WBC (Auto) Urine RBC (Auto) Ur Squamous Epith Cells Urine Bacteria Hyaline Casts Granular Casts Urine Glucose Urine Ascorbic Acid Influenza A (Rapid) Influenza B (Rapid) 07/17/18 07/17/18 07/17/18 19:10 19:10 19:48 WBC 13.7 H RBC 4.03 Hgb 12.4 Hct 38 MCV 94 MCH 31 MCHC 33 RDW 13 Plt Count 158 MPV 9.7 Neut % (Auto) Lymph % (Auto) [place] % (Auto) Eos % (Auto) Baso % (Auto) Absolute Neuts (auto) Absolute Lymphs (auto) Absolute Monos (auto) Absolute Eos (auto) Absolute Basos (auto) Absolute Nucleated RBC Nucleated RBC % INR (Anticoag Therapy) Patient Temperature ABG pH ABG pH (Temp Correct) ABG pCO2 ABG pCO2 (Temp Corrct ABG pO2 ABG pO2 (Temp Correct ABG HCO3 ABG O2 Saturation ABG Base Excess Respiration Rate O2 Delivery Device Ventilator Type Vent Mode FiO2 Inspiratory Time PEEP Pressure Support Pressure Control EPAP IPAP BiPAP Sodium 133 L Potassium 3.7 Chloride 96 L Carbon Dioxide 26 Anion Gap 11 BUN 25 H Creatinine 1.02 H Est GFR ( Amer) 63.4 Est GFR (Non-Af Amer) 52.4 BUN/Creatinine Ratio 24.5 H Glucose 202 H POC Glucose (mg/dL) Lactic Acid Calcium 8.5 L Phosphorus 1.8 L Magnesium 1.8 L Total Bilirubin 1.90 H AST 146 H ALT 137 H Alkaline Phosphatase 177 H Ammonia Troponin I Total Protein 6.6 Albumin 3.2 Globulin 3.4 Albumin/Globulin Ratio 0.9 L Amylase Lipase Urine Color Mee Urine Appearance Cloudy Urine pH 5.0 Ur Specific [place] 1.024 Urine Protein 2+(100 mg/dl) A Urine Ketones Negative Urine Blood 1+ A Urine Nitrate Negative Urine Bilirubin Negative Urine Urobilinogen Positive A Ur Leukocyte Esterase Negative Urine WBC (Auto) Trace(0-5/hpf) Urine RBC (Auto) Absent Ur Squamous Epith Cells Present A Urine Bacteria 1+ A Hyaline Casts Present A Granular Casts Present A Urine Glucose Negative Urine Ascorbic Acid * A Influenza A (Rapid) Influenza B (Rapid) 07/17/18 07/17/18 07/17/18 20:00 21:20 21:20 WBC RBC Hgb Hct MCV MCH MCHC RDW Plt Count MPV Neut % (Auto) Lymph % (Auto) [place] % (Auto) Eos % (Auto) Baso % (Auto) Absolute Neuts (auto) Absolute Lymphs (auto) Absolute Monos (auto) Absolute Eos (auto) Absolute Basos (auto) Absolute Nucleated RBC Nucleated RBC % INR (Anticoag Therapy) Patient Temperature ABG pH 7.42 ABG pH (Temp Correct) ABG pCO2 39 ABG pCO2 (Temp Corrct ABG pO2 246 H ABG pO2 (Temp Correct ABG HCO3 25.6 ABG O2 Saturation 100.0 H ABG Base Excess 0.8 Respiration Rate O2 Delivery Device Ventilator Type Vent Mode FiO2 Inspiratory Time PEEP Pressure Support Pressure Control EPAP IPAP BiPAP Sodium Potassium Chloride Carbon Dioxide Anion Gap BUN Creatinine Est GFR ( Amer) Est GFR (Non-Af Amer) BUN/Creatinine Ratio Glucose POC Glucose (mg/dL) Lactic Acid Calcium Phosphorus Magnesium Total Bilirubin AST ALT Alkaline Phosphatase Ammonia 50 Troponin I 0.29 H* Total Protein Albumin Globulin Albumin/Globulin Ratio Amylase Lipase Urine Color Urine Appearance Urine pH Ur Specific [place] Urine Protein Urine Ketones Urine Blood Urine Nitrate Urine Bilirubin Urine Urobilinogen Ur Leukocyte Esterase Urine WBC (Auto) Urine RBC (Auto) Ur Squamous Epith Cells Urine Bacteria Hyaline Casts Granular Casts Urine Glucose Urine Ascorbic Acid Influenza A (Rapid) Influenza B (Rapid) 07/17/18 07/17/18 07/17/18 22:19 22:32 23:15 WBC RBC Hgb Hct MCV MCH MCHC RDW Plt Count MPV Neut % (Auto) Lymph % (Auto) [place] % (Auto) Eos % (Auto) Baso % (Auto) Absolute Neuts (auto) Absolute Lymphs (auto) Absolute Monos (auto) Absolute Eos (auto) Absolute Basos (auto) Absolute Nucleated RBC Nucleated RBC % INR (Anticoag Therapy) Patient Temperature ABG pH ABG pH (Temp Correct) ABG pCO2 ABG pCO2 (Temp Corrct ABG pO2 ABG pO2 (Temp Correct ABG HCO3 ABG O2 Saturation ABG Base Excess Respiration Rate O2 Delivery Device Ventilator Type Vent Mode FiO2 Inspiratory Time PEEP Pressure Support Pressure Control EPAP IPAP BiPAP Sodium Potassium Chloride Carbon Dioxide Anion Gap BUN Creatinine Est GFR ( Amer) Est GFR (Non-Af Amer) BUN/Creatinine Ratio Glucose POC Glucose (mg/dL) 108 H Lactic Acid 2.1 H* Calcium Phosphorus Magnesium Total Bilirubin AST ALT Alkaline Phosphatase Ammonia Troponin I Total Protein Albumin Globulin Albumin/Globulin Ratio Amylase Lipase Urine Color Urine Appearance Urine pH Ur Specific [place] Urine Protein Urine Ketones Urine Blood Urine Nitrate Urine Bilirubin Urine Urobilinogen Ur Leukocyte Esterase Urine WBC (Auto) Urine RBC (Auto) Ur Squamous Epith Cells Urine Bacteria Hyaline Casts Granular Casts Urine Glucose Urine Ascorbic Acid Influenza A (Rapid) Negative Influenza B (Rapid) Negative 07/18/18 07/18/18 07/18/18 01:25 01:25 01:28 WBC RBC Hgb Hct MCV MCH MCHC RDW Plt Count MPV Neut % (Auto) Lymph % (Auto) [place] % (Auto) Eos % (Auto) Baso % (Auto) Absolute Neuts (auto) Absolute Lymphs (auto) Absolute Monos (auto) Absolute Eos (auto) Absolute Basos (auto) Absolute Nucleated RBC Nucleated RBC % INR (Anticoag Therapy) 1.98 H Patient Temperature ABG pH ABG pH (Temp Correct) ABG pCO2 ABG pCO2 (Temp Corrct ABG pO2 ABG pO2 (Temp Correct ABG HCO3 ABG O2 Saturation ABG Base Excess Respiration Rate O2 Delivery Device Ventilator Type Vent Mode FiO2 Inspiratory Time PEEP Pressure Support Pressure Control EPAP IPAP BiPAP Sodium Potassium Chloride Carbon Dioxide Anion Gap BUN Creatinine Est GFR ( Amer) Est GFR (Non-Af Amer) BUN/Creatinine Ratio Glucose POC Glucose (mg/dL) 123 H Lactic Acid Calcium Phosphorus Magnesium Total Bilirubin AST ALT Alkaline Phosphatase Ammonia Troponin I 0.24 H* Total Protein Albumin Globulin Albumin/Globulin Ratio Amylase Lipase Urine Color Urine Appearance Urine pH Ur Specific [place] Urine Protein Urine Ketones Urine Blood Urine Nitrate Urine Bilirubin Urine Urobilinogen Ur Leukocyte Esterase Urine WBC (Auto) Urine RBC (Auto) Ur Squamous Epith Cells Urine Bacteria Hyaline Casts Granular Casts Urine Glucose Urine Ascorbic Acid Influenza A (Rapid) Influenza B (Rapid) 07/18/18 07/18/18 07/18/18 05:30 05:32 05:39 WBC 15.9 H RBC 4.09 Hgb 12.7 Hct 38 MCV 94 MCH 31 MCHC 33 RDW 13 Plt Count 171 MPV 9.0 Neut % (Auto) Lymph % (Auto) [place] % (Auto) Eos % (Auto) Baso % (Auto) Absolute Neuts (auto) Absolute Lymphs (auto) Absolute Monos (auto) Absolute Eos (auto) Absolute Basos (auto) Absolute Nucleated RBC Nucleated RBC % INR (Anticoag Therapy) Patient Temperature ABG pH ABG pH (Temp Correct) ABG pCO2 ABG pCO2 (Temp Corrct ABG pO2 ABG pO2 (Temp Correct ABG HCO3 ABG O2 Saturation ABG Base Excess Respiration Rate O2 Delivery Device Ventilator Type Vent Mode FiO2 Inspiratory Time PEEP Pressure Support Pressure Control EPAP IPAP BiPAP Sodium Potassium Chloride Carbon Dioxide Anion Gap BUN Creatinine Est GFR ( Amer) Est GFR (Non-Af Amer) BUN/Creatinine Ratio Glucose POC Glucose (mg/dL) 60 L 130 H Lactic Acid Calcium Phosphorus Magnesium Total Bilirubin AST ALT Alkaline Phosphatase Ammonia Troponin I Total Protein Albumin Globulin Albumin/Globulin Ratio Amylase Lipase Urine Color Urine Appearance Urine pH Ur Specific [place] Urine Protein Urine Ketones Urine Blood Urine Nitrate Urine Bilirubin Urine Urobilinogen Ur Leukocyte Esterase Urine WBC (Auto) Urine RBC (Auto) Ur Squamous Epith Cells Urine Bacteria Hyaline Casts Granular Casts Urine Glucose Urine Ascorbic Acid Influenza A (Rapid) Influenza B (Rapid) 07/18/18 07/18/18 07/18/18 05:39 06:40 06:40 WBC RBC Hgb Hct MCV MCH MCHC RDW Plt Count MPV Neut % (Auto) Lymph % (Auto) [place] % (Auto) Eos % (Auto) Baso % (Auto) Absolute Neuts (auto) Absolute Lymphs (auto) Absolute Monos (auto) Absolute Eos (auto) Absolute Basos (auto) Absolute Nucleated RBC Nucleated RBC % INR (Anticoag Therapy) Patient Temperature ABG pH ABG pH (Temp Correct) ABG pCO2 ABG pCO2 (Temp Corrct ABG pO2 ABG pO2 (Temp Correct ABG HCO3 ABG O2 Saturation ABG Base Excess Respiration Rate O2 Delivery Device Ventilator Type Vent Mode FiO2 Inspiratory Time PEEP Pressure Support Pressure Control EPAP IPAP BiPAP Sodium 136 Potassium 3.4 L Chloride 103 Carbon Dioxide 24 Anion Gap 9 BUN 24 Creatinine 0.96 H Est GFR ( Amer) 68.0 Est GFR (Non-Af Amer) 56.2 BUN/Creatinine Ratio 25.0 H Glucose 119 H POC Glucose (mg/dL) Lactic Acid 1.5 Calcium 7.8 L Phosphorus 4.7 Magnesium 2.0 Total Bilirubin AST ALT Alkaline Phosphatase Ammonia Troponin I Total Protein Albumin Globulin Albumin/Globulin Ratio Amylase 14 L Lipase < 10 L Urine Color Urine Appearance Urine pH Ur Specific [place] Urine Protein Urine Ketones Urine Blood Urine Nitrate Urine Bilirubin Urine Urobilinogen Ur Leukocyte Esterase Urine WBC (Auto) Urine RBC (Auto) Ur Squamous Epith Cells Urine Bacteria Hyaline Casts Granular Casts Urine Glucose Urine Ascorbic Acid Influenza A (Rapid) Influenza B (Rapid) Studies: CT abd/pelvis, 07/17: 1. Multifocal pneumonia 2. No etiology for elevated LFTS 3. Nonspecific left perirenal/armani-adrenal stranding without other findings to suggest pyelonephritis CT brain, 07/17: 1. No acute intracranial pathoogy 2. Mild chronic small vessel ischemic disease CXR, 07/17: LLL infiltrate (my read) Nutrition: NPO until weaning off pressors Impression: 77 yo F with 3 day history of shortness of breath, chest pain, nausea and vomiting after eating at [facility]. Initially seen in ED on 07/15 and workup felt consistent with acute viral infection. Returns to ED on 07/17 for worsening shortness of breath. CXR shows new LLL, WBC elevated. Admitted with multifocal community acquired pneumonia and septic shock. Now with new onset of seizures and findings of elevated LFTs. Plan: Cardiovascular: (1) Septic shock; (2) Pacemaker in situ; (3) NSTEMI, demand mediated; (4) Chronic Benign essential HTN -- HR 70-86 -- SBP 69-159 -- Telemetry -- TTE ordered -- Troponin 0.24 from 0.29 from 0.18, follow trend, likely demand mediated. Not currently complaining of chest pain, though she was on Tuesday. Will check TTE. On anticoagulation, ASA and statin. Unable to use betablocker due to shock state -- Vasopressors Levophed @ 12 mcg/min , titrate to MAP > 65 -- warfarin -- ASA -- atorvastatin Home meds: Warfarin, Atenolol, Atorvastatin Pulmonary: (1) Community acquired multifocal pneumonia, (2) acute hypoxic respiratory failure requiring intubation; (3) hx of bronchitis -- RR 14-34 -- sats 88-100% on Vent -- ABG 7.42/39/246/25.6/0.8/100 post intubation. AM ABG pending -- hold SBT today due to seizure activity and new pressor needs -- CXR 07/18 completed, read pending -- PRN Albuterol and Atrovent inhalers -- Broad spectrum abx for PNA coverage Home meds: None Gastrointestinal: (1) Acute nausea and vomiting; (2) Hyperbilirubinemia, improving; (3) hx of constipation/diarrhea and nausea over the past 9+ months -- LFTs, follow trend Tbili 1.90 from 2.4 ALK 177 from 204 AST 146 from 184 ALT 137 from 167 -- Ammonia 50, within normal limits -- Pancreatic enzymes Amylase 14 Lipase <10 -- Hepatitis panel pending -- US gall bladder completed, read pending -- diet: NPO until weaning off pressors -- bowel regimen: None -- ulcer prophylaxis: Protonix -- Zofran as needed for vomiting Home meds: Omeprazole, Zofran Endocrine: (1) hx of thyroid cancer s/p thyroidectomy and radiation; (2) Hyperglycemia -- monitor BGs -- SSI -- Synthroid -- TSH 0.02 Home meds: Synthroid Renal: (1) chronic stress incontinence; (2) Chronic kidney disease; (3) Hyponatremia, improving; (4) Hypocalcemia -- UOP: 45 ml/hr -- I/O: 4094/540 -- Cr 0.95 -- Lytes Na 136 from 132, on NS gtt, follow trend K 3.4, replacement ordered Ca 7.8, replacement ordered Mag 2.0 Phos 4.7 -- IVF: NS @ 100 ml/hr Home meds: None Infectious disease: (1) Left lower lobe pneumonia; (2) Sepsis -- Tmax 101.1F -- WBC 15.9 from 13.7 from 18.9 -- Micro 07/17 Flu screen pending Urinalysis Negative blood in process sputum in process 07/15 Flu screen negative -- ABX Rocephin Azithromycin Home meds: PRN Valacyclovir Neurologic: (1) New onset seizure activity; (2) Acute metabolic encephalopathy ; (3) chronic back and shoulder pain; (4) chronic bilateral leg neuropathy; (5) chronic headaches -- Propofol gtt for sedation -- PRN Fentanyl for pain control -- PRN Tylenol -- EEG in progress -- PRN Ativan for seizure activity -- Start Keppra -- consult Neurology Home meds: Lexapro, [place] Hematological: No acute issues -- Hgb 12.7 from 14.1, dilutional, follow trend -- Plt 171 -- Coags INR 1.98 -- DVT prophylaxis: home warfarin -- ASA Home meds: Warfarin Metabolic: (1) Lactic acidosis, improving -- Lactic acid 1.5 from 2.1 from 3.0 from 2.9, follow trend -- IVF rsuscitation Home meds: None Other: Home meds: Vitamin D, MVI Deep vein thrombosis prophylaxis: Warfarin Dietary: Protonix Condition: critical Prognosis: guarded Code status: full Disposition: continue ICU care Cumulative time spent in the care of this patient (excluding any procedure time) : at least 60 minutes. Patient care included clinical interview (with patient and/or family), bedside exam of the patient, review of labs, x-rays, and other ancillary data, coordination of (respiratory, nursing care, review of patient's records, discussion regarding patients management with involved consultants, primary physician, pharmacists, and other healthcare personnel (dietary, case management , physical/occupational therapy etc.) Critical Care Time:
[2018-07-18] MEDS: KCL 20 MEQ/100 ML IVPREMIX* 20 MEQ/100 ML BAG IV SCH ×3 (07:43→12:27)
[2018-07-18] MEDS ORDERED: Ipratropium HFA INHALER(NF) (ALTERNATIVE = NEBS) INH PRN (07:47)
[2018-07-18] MEDS ORDERED: Albuterol HFA INHALER* 8 gm MDI INH PRN (07:47)
[2018-07-18] MEDS: Pantoprazole IV* 40 MG IV SCH (07:48)
[2018-07-18] MEDS: cefTRIAXone(*) 1 GM in NS 0.9% 50 ML* 50 ML IVPB SCH (07:50)
[2018-07-18] MEDS ORDERED: Midazolam* 1 MG/ML 2 ML VIAL (2 MG) IV PRN (07:50)
[2018-07-18] MEDS ORDERED: Midazolam* 1 MG/ML 2 ML VIAL (2 MG) IV ONE (08:00)
[2018-07-18] MEDS ORDERED: levETIRAcetam IV* 1,000 MG in NS 100 mL IVPB ONE (08:00)
[2018-07-18] MEDS ORDERED: Calcium Gluconate INJ* 1 GM in NS 0.9% 50 ML* 50 ML IVPB ONE ×3 (08:02)
[2018-07-18] MEDS: Azithromycin IV(*) 500 MG in NS 0.9% 250 ML* 250 ML IVPB SCH (08:11)
[2018-07-18] MEDS ORDERED: Pantoprazole TAB * 40 MG TAB PO SCH (09:00)
[2018-07-18] MEDS ORDERED: Aspirin 81 mg CHEW TAB* 81 MG TAB.CHEW PO SCH (09:00)
[2018-07-18] MEDS ORDERED: Aspirin EC TAB* 325 MG PO SCH (09:00)
[2018-07-18] MEDS ORDERED: Atenolol TAB* 25 MG PO SCH (09:00)
[2018-07-18] MEDS: Citalopram TAB* 20 MG PO SCH (09:21)
--- NOTE | 2018-07-18 11:23 | CONS ---
NEUROLOGY CONSULTATION NOTE: DATE OF CONSULT: 07/18/18 CONSULTING PROVIDER: Dr. Felisa Santoyo. REASON FOR CONSULT: Possible seizure-like activity. CHIEF COMPLAINT: The patient is intubated, but quite responsive. HISTORY OF PRESENT ILLNESS: Mrs. Davis is a 77-year-old female who presented to [facility] on 07/17/18 with shortness of breath and chest pain. The patient was admitted to the ICU for evaluation of new multifocal pneumonia and treatment for sepsis. She was placed on broad- spectrum antibiotic including ceftriaxone. The patient had a temperature of 104 overnight. She was intubated and sedated with propofol for respiratory insufficiency. This morning at approximately 7-7:30 a.m. the patient began developing twitching of the extremities, tremoring of the legs, reported extensor posturing by the nursing staff, and eyelid twitching. These were intermittent. These symptoms worsened when the sedation was off. There was a concern that the patient may have seizures. She was loaded with levetiracetam 1000 mg IV x1 and started on 500 mg twice daily. The patient had an EEG this morning at approximately 7-7:30 a.m. which showed mild encephalopathy with retained sleep variant, which suggests a mild encephalopathy as well as a favorable prognostic finding. She had a repeat EEG connected when the episodes of tremoring began, which were recording on EEG and it showed generalized slowing with no evidence of epileptiform discharges or electrographic seizures. The final EEG reports will be dictated later on today. The patient had a stat CT head completed on , that showed no acute intracranial abnormalities. I personally reviewed the study. The patient has no history of stroke or seizures. The patient when interviewed today is extremely responsive. She opens her eyes appropriately. She follows command. GCS score of 11T. PAST MEDICAL HISTORY: Hypertension, pacemaker placement for arrhythmia, diabetes, hypothyroidism, chronic low back pain, thyroid cancer status post resection. PAST SURGICAL HISTORY: Hysterectomy. MEDICATIONS: Home medications: 1. Atorvastatin 80 mg p.o. daily. 2. Vitamin D supplements 2000 units p.o. daily. 3. Omeprazole 20 mg p.o. daily. 4. Ondansetron 8 mg p.o. every 6 hours. 5. Multivitamins 1 tablet p.o. daily. 6. Hydrocodone 1-2 tablets p.o. every 4 hours. 7. Valacyclovir 500 mg p.o. daily. 8. Escitalopram 10 mg p.o. daily. 9. Levothyroxine 150 mcg p.o. daily. 10. Atenolol 25 mg p.o. b.i.d. 11. Warfarin 5 mg p.o. Tuesday, Tuesday, , Tuesday, and Tuesday. Warfarin 2.5 mg p.o. Tuesday and Tuesday. ALLERGIES: She has a long list of allergies that include: ADHESIVE TAPE, BETA BLOCKERS, ERYTHROMYCIN, LIDOCAINE, MEPERIDINE, NORTRIPTYLINE, NSAIDS, OXYCODONE , PENICILLIN, PROPOXYPHENE, SULFA, HYDROCODONE, TETANUS TOXOID. FAMILY HISTORY: No family history of stroke or seizures. REVIEW OF SYSTEMS: Unable to be obtain due to the patient being intubated. However, she did nod yes and no to any headaches, visual disturbances, or chest pain and she nodded no. PHYSICAL EXAM: Vitals: Temperature of 98.2, pulse of 70, respiratory rate of 14, oxygen saturation of 98, blood pressure of 128/58. General: Well-nourished , well- developed female in no acute distress. She is intubated. Head is normocephalic and atraumatic. Eyes: Conjunctivae/corneas are clear. Neck is supple and symmetrical with no carotid bruits. Lungs have rhonchi in bilateral anterior chest region. Cardiovascular: Regular rate and rhythm. Normal S1 and S2. Extremities: Normal range of motion with no cyanosis. Skin: No skin lesions or lacerations. Psych: Unable to perform due to intubation. Neurological Examination: Mental status: The patient is intubated. She is responsive. GCS of 11T. She follows simple commands. She tracks the examiner. Cranial nerves: Pupils are equal, round, and reactive to light and constrict from 5 mm to 3 mm bilaterally. Oculocephalic reflex and corneal reflexes are intact. Nasal stimulation or gag were not performed as the patient is awake. Motor: Bulk and tone were normal throughout. The patient was able to give both thumbs up as well as the middle fingers bilaterally. She was able to lift her legs off the bed bilaterally. Sensation: The patient has normal sensation to light touch and pin prick by nodding yes to the examiner. Reflexes 1+ throughout with downgoing plantar responses. Coordination and gait were not assessed due to the patient's intubation. DIAGNOSTIC STUDIES/LAB DATA: WBC of 15,000, INR of 1.98. Sodium of 136, potassium of 3.4, creatinine of 0.96, lactic acid 1.5, TSH of 0.02. Urinalysis : No evidence of pyuria. ASSESSMENT AND RECOMMENDATION: Mrs. Kina Davis is a 77-year-old female with respiratory failure related to pneumonia, who has mild acute infectious and possibly hypoxic encephalopathy that is improving. She had episodes of shaking that was concerning for seizure-like activity; however, this seen shaking was recorded on EEG and did not show any epileptiform abnormalities. The patient actually was awake during this episode and responsive when she was twitching and moving her extremities with slight internal rotation of the arms bilaterally , which I suspect is related to being uncomfortable off sedation and intubated. I do not suspect she has seizures or epilepsy. She has no lateralizing neurological signs to suspect a stroke or TIA. She had a CT head that showed no intracranial hemorrhage, especially given that she is on anticoagulation therapy. The patient has thyroid disease with low TSH. Defer to the primary team. PLAN/RECOMMENDATIONS: I recommend discontinuing levetiracetam. If she develops these symptoms again, consider reassuring and comforting the patient as well as reordering an EEG to record the events. Continue supportive care. Continue neuro checks every 1 hour. Neurology will sign off, but please note that we are available for any questions or concerns. CRITICAL CARE TIME: Fifty minutes of which more than 50% was spent on reviewing the medical record, interviewing the patient, examining the patient, and discussing the treatment plan with the patient and primary team. I discussed the case with the bedside nurse as well as Dr. Santoyo who agreed with the plan. [id number]/[facility] #: [id number] [facility]
[2018-07-18] MEDS: Acetaminophen ADULT LIQ* 650 MG/20.3 ML UDC PO PRN ×2 (11:51→21:44)
[2018-07-18 12:58] LABS: Hepatitis B Surface Antigen Nonreactive (Nonreactive)
[2018-07-18 13:25] LABS: Hepatitis C Antibody Nonreactive (Nonreactive)
[2018-07-18] MEDS: Ibuprofen ADULT LIQ* 600 MG/30 ML UDC PO PRN ×2 (13:55→23:46)
[2018-07-18] MEDS ORDERED: Phytonadione IV (Adult)* 10 MG/ML 1 ML AMP IV ONE (16:19)
[2018-07-18] MEDS ORDERED: Warfarin TAB(*) 5 MG NG TUBE SCH (17:00)
[2018-07-18] MEDS: fentaNYL* 50 MCG/ML 2 ML VIAL (100 MCG VIAL) IV SLOW PU PRN (17:50)
[2018-07-18] MEDS ORDERED: Midazolam* 1 MG/ML 10 ML VIAL (10 MG) ONE (18:26)
[2018-07-18] MEDS ORDERED: KETAMINE HCL* 50 MG/ML 10 ML VIAL ONE (18:26)
[2018-07-18] MEDS ORDERED: Phytonadione 10 mg in 50 mL NS over 30 min IV ONE (18:45)
--- NOTE | 2018-07-18 19:09 | CONS ---
GASTROENTEROLOGY CONSULT: DATE OF CONSULT: 07/18/18 CONSULTING PHYSICIANS: Felisa PHELAN, Jojo Clark. REASON FOR CONSULT: Elevated LFTs and gallbladder wall thickening in a woman admitted with left-sided pneumonia, sepsis and hypotension requiring intubation pressors and an illness for 3 days marked by nausea and complaints of epigastric pain. HISTORY: This 77-year-old woman with a history of a pacemaker placed in the early , atrial fibrillation on chronic warfarin, morbid obesity and longstanding reflux, was feeling her usual self last week. She has been trying to lose weight via diet and maybe has taken off 10 pounds in the last year. The history was given by her daughter, Lis lives as the patient is intubated in the ICU. She lives a mile away from the patient. Apparently, she perceived some stomach upset and commented she felt nonspecifically poorly on 07/14/18. She felt a little better overnight and the next day actually ate at [employer] in [place]. She had chicken and rice. After that, she again felt very poorly with some nausea though no emesis then or fever. She was directed to the emergency room by her primary care office. There, extensive testing was negative. Her white count was normal at 8.8. She was sent home. On 07/16/18, she just told her family she was feeling worse and was now vomiting. She was seen at her primary office on Tuesday and sent back to the emergency room. She was hypoxic and admitted to the ICU where she was intubated and placed on pressors. Chest x-ray showed pneumonia, left- sided. She has been placed on ceftriaxone and azithromycin. Over the last 24 hours, her trend has been towards less need for norepinephrine and her white count has gone down some. Initially elevated LFTs have come down some. Her LFTs were noted to be elevated. There was no hepatobiliary abnormality on CT scan with a slender common duct of 3 mm. Ultrasound yesterday showed gallbladder wall thickening between 5 and 7 mm, a slender common duct at 3 mm, and no stones or sludge. Many LFTs over the last 8 yrs have all been normal PAST MEDICAL HISTORY: 1. Cardiac rhythm disturbance - she has permanent pacemaker. It has been changed several times. Dr. Lomeli has been attending to this. 2. Atrial fibrillation - on warfarin and INR 1.98 on admission with no history of bleeding 3. History of GERD / Recurring dyspepsia - on omeprazole since at least 2001. She has been followed by Dr Butcher and has had multiple upper endoscopies as recently as 2011 and 2013. Polyps related to proton pump inhibitors had been seen. There was no Lockwood's. US RUQ have been unremarkable 4. Colon polyps - removed by Dr. Butcher, 2014 as a followup to a prior exam. 5. 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 Most recent DELMAR, February 2014, was negative. Rheumatoid factor was negative. 6. History of renal disease - in the chart, though creatinine was 0.95 on admission. 7. Status post hysterectomy - benign disease in the 1970s. 8. Hypothyroidism. 9. Anxiety. 10. Multiple allergies - an extensive list. MEDICATIONS: At home: 1. Vitamin D 2000 units. 2. Escitalopram 10 mg. 3. Omeprazole 20. 4. Atorvastatin 80. 5. Levothyroxine 150 mcg. 6. Atenolol 50. 7. Warfarin. SOCIAL HISTORY: She is , lives with her . Her daughter, Lis Franklin, sees her frequently. REVIEW OF SYSTEMS (from chart): No history of stroke or TIA, [place], congestive failure, TB, asthma, hepatitis, hematuria, abdominal surgery other than a hysterectomy. PHYSICAL EXAM: She is in the ICU room 6 on a ventilator, sedated. Skin is warm and dry. Temperature 100.6 via Walsh probe; blood pressure 101/64, on norepinephrine; heart rate 70 per pacer. HEENT exam shows no icterus. She has no adenopathy. Breath sounds are heard in the apices and more on the right side. The abdomen has diminished bowel sounds, but is soft. It is obese and the exam is limited. Rectal: Deferred. Extremities show no edema. DIAGNOSTIC STUDIES: Imaging - CT abdomen and pelvis yesterday shows multifocal pneumonia, no structural disease in the hepatobiliary system to explain her LFTs , and mild atherosclerotic change to the aorta. IMPRESSION: This 77-year-old woman with a pacemaker and who is morbidly obese with a long history of gastroesophageal reflux disease is admitted with sepsis, need for pressors and signs of pneumonia on imaging and mild hepatocellular injury (though no liver dysfunction) on chemistries. The initial symptoms were nonspecific, but seem more focused on the GI tract. They could have taken origin with acalculous cholecystitis that was smoldering. Currently, the respiratory situation is more critical and it appears likely that pneumonia is the leading issue and the reason for her need for pressors. She seems to be improving somewhat on all fronts and the question of additional therapy to the gallbladder is moot. for the moment. If, however, she seems to backslide and get worse, the decision will have to be made whether this is from uncontrolled infection in the gallbladder bed or her pneumonia or something else. To place a tube in the gallbladder, her warfarin will have to be reversed and right now no additional doses are being given and she can receive heparin when the time is right. There does not appear to be any reason to consider ERCP or further imaging of the common duct at this time. The LFT abnormalities are probably from the adjacent sick gallbladder and possibly shock liver and not her meds or common duct problems. [id number]/[facility] #: [id number] [facility]
[2018-07-18] MEDS ORDERED: levETIRAcetam 500 MG IVPREMIX* 500 MG/100 ML BAG IV SCH (20:00)
--- NOTE | 2018-07-18 20:44 | EEG ---
ELECTROENCEPHALOGRAPHY: DATE OF STUDY: 07/18/18 - ROOM #ICU-06 DATE OF DICTATION: 07/18/18 ORDERED BY: Cristian Mann MD. MEDICATIONS: 1. Aspirin. 2. Atenolol. 3. Rocephin. 4. Celexa. 5. Protonix. 6. Zithromax. 7. Insulin. 8. Coumadin. 9. Lipitor. 10. Levophed. 11. Synthroid. 12. Tylenol. 13. Albuterol. 14. Fentanyl. 15. Compazine. 16. Zofran. 17. Morphine. 18. Propofol. The propofol was paused at 7:45 a.m. RECORDING TIME: The recording times were from 7:27 a.m. to 8:14 a.m., then again from 8:28 a.m. until 8:35 a.m., and then again from 8:39 a.m. until 8:44 a.m. INDICATION: Mrs. Kina Davis is a 77-year-old female who presented with respiratory failure secondary to pneumonia, who developed intermittent rigors and tremoring with concern for seizure-like activity. This EEG was obtained to evaluate for convulsive and nonconvulsive status epilepticus. CLINICAL STATE: Encephalopathic, waking and sleep state. REPORT: Initially, while on sedation, the background lacked organization or clearly defined anterior-posterior voltage and frequency gradients. There was no discernible posterior dominant rhythm, instead the background consisted of diffuse low amplitude polymorphic 3-6 Hz delta and theta range slowing. There was emergence of some faster frequencies with verbal and tactile stimulation. Once the propofol was held, the background continued to show mixed frequency slowing in the delta and theta range, but there was some appropriate organization and clearly defined anterior-posterior voltage gradients. There was a waking slow background rhythm of 7 Hz, which was symmetrical and showed normal reactivity. Please note that throughout the recording there were sleep background that was disorganized, with persistent theta frequency and brief runs of sleep spindles and vertex waves. These sleep transients showed appropriate morphology and bilaterally synchronous and symmetrical. The patient was able to interact with the examiner during the recording as well as she had episode where she had tremoring of the lower extremity that was recorded on EEG that did not correlate with any epileptiform abnormalities or electrographic seizures. Hyperventilation and photic stimulation were not performed. IMPRESSION: This is an abnormal waking and sleep EEG in an intubated patient, with initially a suppressed background while on propofol, but then transitioning to a more wake and sleep state with some intermittent diffuse slowing with appropriate organization off propofol. These findings are suggestive of mild-moderate encephalopathy due to sedation. The tremors of the lower extremities were recorded during the EEG and were not associated with any EEG abnormalities or epileptiform discharges. [id number]/[facility] #: [id number] [facility]
[2018-07-18] MEDS: Atorvastatin* 80 MG TAB PO SCH (21:44)
[2018-07-19] MEDS: Chlorhexidine MOUTHWASH 0.12%* 15 ML UDC TOPICAL SCH ×6 (00:30→20:38)
[2018-07-19] MEDS: Albuterol/Ipratropium NEB.SOL* Albuterol 2.5 MG/Ipratropium 0.5 MG 3 ML INH PRN ×2 (01:32→13:57)
[2018-07-19] MEDS: Propofol* 100 ML IV SCH ×3 (02:20→20:39)
[2018-07-19] MEDS ORDERED: NS 0.9% 1000 ML** 1,000 ML IV ONE (03:23)
[2018-07-19 05:53] LABS: Hematocrit 35 % (35-47); Hemoglobin 11.3 g/dl (12.0-16.0); Mean Corpuscular HGB Conc 32 g/dl (31-36); Mean Corpuscular Hemoglobin 31 pg (27-31); Mean Corpuscular Volume 95 fL (80-97); Mean Platelet Volume 9.3 fL (7.4-10.4); Platelet Count 180 10^3/ul (150-450); Red Blood Count 3.69 10^6/ul (4.00-5.40); Red Cell Distribution Width 15 % (10.5-15); White Blood Count 18.8 10^3/ul (3.5-10.8)
[2018-07-19 05:57] LABS: INR 1.62 (0.77-1.02)
[2018-07-19] MEDS: Levothyroxine TAB* 150 MCG TAB PO SCH (05:58)
[2018-07-19] MEDS: NS 0.9% 1000 ML** 1,000 ML IV SCH ×2 (06:04→15:21)
[2018-07-19 06:09] LABS: Albumin 2.4 g/dL (3.2-5.2); Albumin/Globulin Ratio 0.9 (1-3); BUN/Creatinine Ratio 22.5 (8-20); EGFR African American 48.4 (>60); Globulin 2.7 g/dL (2-4); Indirect Bilirubin 0.5 mg/dL (0.3-1.0); Magnesium 1.8 mg/dL (1.9-2.7); Phosphorus 3.5 mg/dL (2.5-5.0); Potassium 4.8 mmol/L (3.5-5.0); Total Bilirubin 1.3 mg/dL (0.2-1.0); Total Protein 5.1 g/dL (6.4-8.9)
--- NOTE | 2018-07-19 07:18 | PN ---
Date of Service: 07/19/18 - HD 3 Critical Care Services: 77 yo F with PMH including thyroid cancer s/p resection and radiation, chronic pain, chronic (9+mo hx) of nausea, constipation and diarrhea was seen recently in the ED on 07/15 with complaints of nausea, vomiting and chest pain. At that time WBC was normal, flu screen was negative anc CXR did not show an acute process. EKG demonstrated only an AV dual-paced rhythm and troponin was negative. She was dicharged home. She returns to the ED today with complaints of ongoing nausea, vomiting and shortness of breath. CXR demonstrates new LLL pneumonia and elevated WBC. Sepsis markers positive. Also found to have hyperbilirubinemia. Admitted to ICU for further workup and care Shortly after arrival to ICU she developed worsened hypoxia and became unresponsive. She was intubated for acute hypoxic respiratory failure and airway protection. A central line was placed for medication administration and lab draws. Repeat lactic acid bumped up to 3.0. Bolused an additional 2L NL with subsequent improvement to 2.[address] of head and abdomen were negative for acute pathology aside from known pneumonia and some mild nonspecific armani-adrenal fat stranding. She had a brief episode of lower extremity extention with twitching which resolved spontaneously Family updated regarding clinical course and plan of care 07/18: Overnight she required the initiation of Levophed to maintain MAPs > 65. This AM she had a second episode of lower extremity extention with twitching and periorbital twitching. Given Ativan and Keppra load and EEG ordered. Evaluated by Neurology, once sedation off patient following commands during episodes and EEG negative thus not seizure activity. No need for ongoing antiepileptics. GI consulted for elevated LFTs and findings of thickened gallbladder wall. Plan of ERCP on 07/19. Weaned off pressors by afternoon, but restarted in evening to keep MAPs > 65 07/19: Low urine output overnight. Bolused 1L NS. Vital Signs: Temp Pulse Resp BP SpO2 FiO2 98.4 F 70 14 87/58 95 35 07/19/18 06:01 07/19/18 06:01 07/19/18 06:00 07/19/18 06:01 07/19/18 06:01 07/19 04:00 Physical Exam: Gen:intubated, sedated HEENT: ETT in place Lungs: Coarse bilaterally, improved air movement Cardiac: RRR Abdomen: Soft NTND Extremities: warm, dry, moderate edema Neuro: sedated currently Fluid Balance (Past 24 Hours): I= O= Net Intake & Output 07/17/18 07/18/18 07/19/18 07/20/18 06:59 06:59 06:59 06:59 Intake Total 4094 5905 Output Total 540 483 Balance 3554 5422 Weight 162 lb 0.636 oz 167 lb 5.294 oz Intake: IV Fluids 3480 5334 Antibiotics 1281 NS 3430 4053 Medicated IV 614 451 Levophed 144 189 Magnesium 100 calcium gluconate 55 potassium 50 propofol 55 160 sodium Phosphate 260 vit k 52 Oral 0 0 Tube Feeding Flush Amount 120 Output: NG Tube Drainage Amount 100 Urine 25 Walsh 440 458 Other: Estimated Void Large Estimated Stool Amount Large # Voids 1 ADLs: Meal Record Start: 07/17/18 17: 39 Freq: 09,13,18 Status: Active Protocol: Created 07/17/18 17:39 System (Rec: 07/17/18 17:39 System ICU-C20) Document 07/17/18 18:00 [id number] (Rec: 07/17/18 18:09 [id number] ICU-C12) Document 07/18/18 09:00 [id number] (Rec: 07/18/18 10:08 [id number] ICU-C15) Document 07/18/18 13:00 [id number] (Rec: 07/18/18 13:24 [id number] ICU-C15) Document 07/18/18 18:00 [id number] (Rec: 07/18/18 18:15 [id number] ICU-C15) Intake and Output Start: 07/17/18 15: 30 Freq: Status: Active Protocol: Created 07/17/18 15:30 System (Rec: 07/17/18 15:30 System [id number]) Intake and Output Start: 07/17/18 17: 39 Freq: Q1HR Status: Active Protocol: Created 07/17/18 17:39 System (Rec: 07/17/18 17:39 System ICU-C20) Document 07/17/18 18:00 [id number] (Rec: 07/17/18 18:09 [id number] ICU-C12) Document 07/17/18 20:00 [id number] (Rec: 07/17/18 21:35 [id number] ICU-C12) Document 07/17/18 21:00 [id number] (Rec: 07/17/18 22:27 [id number] ICU-M27) Document 07/17/18 22:00 [id number] (Rec: 07/18/18 00:01 [id number] ICU-C12) Document 07/17/18 23:00 [id number] (Rec: 07/18/18 00:01 [id number] ICU-C12) Document 07/18/18 00:00 LTF1614 (Rec: 07/18/18 02:55 [id number] ICU-C12) Document 07/18/18 01:00 [id number] (Rec: 07/18/18 02:55 [id number] ICU-C12) Document 07/18/18 02:00 [id number] (Rec: 07/18/18 02:55 [id number] ICU-C12) Document 07/18/18 03:00 [id number] (Rec: 07/18/18 03:16 GCR2088 ICU-C12) Document 07/18/18 04:00 [id number] (Rec: 07/18/18 05:15 [id number] ICU-M27) Document 07/18/18 06:30 LER4514 (Rec: 07/18/18 06:30 KQU9401 ICU-M27) Document 07/18/18 07:00 [id number] (Rec: 07/18/18 07:22 [id number] ICU-M27) Document 07/18/18 08:00 [id number] (Rec: 07/18/18 09:14 [id number] ICU-M27) Document 07/18/18 09:00 [id number] (Rec: 07/18/18 09:15 [id number] ICU-M27) Document 07/18/18 10:00 WVH1486 (Rec: 07/18/18 10:08 EPE6063 ICU-C15) Document 07/18/18 11:00 [id number] (Rec: 07/18/18 11:07 RWJ2240 ICU-M27) Document 07/18/18 12:00 [id number] (Rec: 07/18/18 12:25 WSS9538 ICU-C15) Document 07/18/18 13:00 SWH8638 (Rec: 07/18/18 13:24 [id number] ICU-C15) Document 07/18/18 14:00 LJJ1808 (Rec: 07/18/18 14:14 [id number] ICU-C15) Document 07/18/18 15:00 PKE1025 (Rec: 07/18/18 15:13 [id number] ICU-C15) Document 07/18/18 16:00 [id number] (Rec: 07/18/18 17:41 KTI0011 ICU-C15) Document 07/18/18 17:00 BPG1101 (Rec: 07/18/18 17:58 [id number] ICU-C15) Document 07/18/18 18:00 VQV2104 (Rec: 07/18/18 18:15 [id number] ICU-C15) Document 07/18/18 21:55 [id number] (Rec: 07/18/18 21:55 [id number] ICU-M27) Document 07/18/18 23:00 [id number] (Rec: 07/18/18 23:31 [id number] ICU-C15) Document 07/18/18 23:59 [id number] (Rec: 07/18/18 23:59 [id number] ICU-M27) Document 07/19/18 02:58 [id number] (Rec: 07/19/18 02:58 YHO7555 ICU-C14) Document 07/19/18 03:00 [id number] (Rec: 07/19/18 03:15 [id number] ICU-M27) Document 07/19/18 04:00 [id number] (Rec: 07/19/18 05:28 [id number] ICU-C15) Document 07/19/18 05:00 [id number] (Rec: 07/19/18 05:32 [id number] ICU-C15) Document 07/19/18 06:00 [id number] (Rec: 07/19/18 06:35 WVW1116 ICU-C15) Labs: Laboratory Results - last 24 hr 07/17/18 07/18/18 07/18/18 19:10 05:39 06:40 WBC RBC Hgb Hct MCV MCH MCHC RDW Plt Count MPV INR (Anticoag Therapy) Patient Temperature ABG pH ABG pH (Temp Correct) ABG pCO2 ABG pCO2 (Temp Corrct ABG pO2 ABG pO2 (Temp Correct ABG HCO3 ABG O2 Saturation ABG Base Excess Respiration Rate O2 Delivery Device Ventilator Type Vent Mode FiO2 Inspiratory Time PEEP Pressure Support Pressure Control EPAP IPAP BiPAP Sodium 136 Potassium 3.4 L Chloride 103 Carbon Dioxide 24 Anion Gap 9 BUN 24 Creatinine 0.96 H Est GFR ( Amer) 68.0 Est GFR (Non-Af Amer) 56.2 BUN/Creatinine Ratio 25.0 H Glucose 119 H POC Glucose (mg/dL) Lactic Acid Calcium 7.8 L Phosphorus 4.7 Magnesium 2.0 Total Bilirubin Direct Bilirubin Indirect Bilirubin AST ALT Alkaline Phosphatase Troponin I Total Protein Albumin Globulin Albumin/Globulin Ratio Amylase Lipase Vitamin B12 598 TSH 0.02 L Hepatitis A IgM Ab Nonreactive Hep Bs Antigen Nonreactive Hep B Core IgM Ab Nonreactive Hepatitis C Antibody Nonreactive Hepatitis C Ab Index 0.1 Blood Type Antibody Screen 07/18/18 07/18/18 07/18/18 06:40 06:40 08:00 WBC RBC Hgb Hct MCV MCH MCHC RDW Plt Count MPV INR (Anticoag Therapy) Patient Temperature Not Reportable ABG pH 7.32 L ABG pH (Temp Correct) Not Reportable ABG pCO2 42 ABG pCO2 (Temp Corrct Not Reportable ABG pO2 86 ABG pO2 (Temp Correct Not Reportable ABG HCO3 21.5 ABG O2 Saturation 97.9 ABG Base Excess -4.3 L Respiration Rate Not Reportable O2 Delivery Device vent Ventilator Type Not Reportable Vent Mode Not Reportable FiO2 100 Inspiratory Time Not Reportable PEEP 5 Pressure Support Not Reportable Pressure Control Not Reportable EPAP Not Reportable IPAP Not Reportable BiPAP Not Reportable Sodium Potassium Chloride Carbon Dioxide Anion Gap BUN Creatinine Est GFR ( Amer) Est GFR (Non-Af Amer) BUN/Creatinine Ratio Glucose POC Glucose (mg/dL) Lactic Acid 1.5 Calcium Phosphorus Magnesium Total Bilirubin Direct Bilirubin Indirect Bilirubin AST ALT Alkaline Phosphatase Troponin I 0.16 H* Total Protein Albumin Globulin Albumin/Globulin Ratio Amylase 14 L Lipase < 10 L Vitamin B12 TSH Hepatitis A IgM Ab Hep Bs Antigen Hep B Core IgM Ab Hepatitis C Antibody Hepatitis C Ab Index Blood Type Antibody Screen 07/18/18 07/18/18 07/18/18 09:18 12:15 17:47 WBC RBC Hgb Hct MCV MCH MCHC RDW Plt Count MPV INR (Anticoag Therapy) Patient Temperature ABG pH ABG pH (Temp Correct) ABG pCO2 ABG pCO2 (Temp Corrct ABG pO2 ABG pO2 (Temp Correct ABG HCO3 ABG O2 Saturation ABG Base Excess Respiration Rate O2 Delivery Device Ventilator Type Vent Mode FiO2 Inspiratory Time PEEP Pressure Support Pressure Control EPAP IPAP BiPAP Sodium Potassium Chloride Carbon Dioxide Anion Gap BUN Creatinine Est GFR ( Amer) Est GFR (Non-Af Amer) BUN/Creatinine Ratio Glucose POC Glucose (mg/dL) 122 H Lactic Acid Calcium Phosphorus Magnesium Total Bilirubin Direct Bilirubin Indirect Bilirubin AST ALT Alkaline Phosphatase Troponin I 0.14 H* Total Protein Albumin Globulin Albumin/Globulin Ratio Amylase Lipase Vitamin B12 TSH Hepatitis A IgM Ab Hep Bs Antigen Hep B Core IgM Ab Hepatitis C Antibody Hepatitis C Ab Index Blood Type A Positive Antibody Screen Negative 07/19/18 07/19/18 07/19/18 05:40 05:40 05:40 WBC 18.8 H RBC 3.69 L Hgb 11.3 L Hct 35 MCV 95 MCH 31 MCHC 32 RDW 15 Plt Count 180 MPV 9.3 INR (Anticoag Therapy) 1.62 H Patient Temperature ABG pH ABG pH (Temp Correct) ABG pCO2 ABG pCO2 (Temp Corrct ABG pO2 ABG pO2 (Temp Correct ABG HCO3 ABG O2 Saturation ABG Base Excess Respiration Rate O2 Delivery Device Ventilator Type Vent Mode FiO2 Inspiratory Time PEEP Pressure Support Pressure Control EPAP IPAP BiPAP Sodium 136 Potassium 4.8 Chloride 111 Carbon Dioxide 18 L Anion Gap 7 BUN 29 H Creatinine 1.29 H Est GFR ( Amer) 48.4 Est GFR (Non-Af Amer) 40.0 BUN/Creatinine Ratio 22.5 H Glucose 102 H POC Glucose (mg/dL) Lactic Acid Calcium 7.0 L Phosphorus 3.5 Magnesium 1.8 L Total Bilirubin 1.30 H Direct Bilirubin 0.80 H Indirect Bilirubin 0.5 AST 65 H ALT 71 H Alkaline Phosphatase 128 H Troponin I Total Protein 5.1 L Albumin 2.4 L Globulin 2.7 Albumin/Globulin Ratio 0.9 L Amylase Lipase Vitamin B12 TSH Hepatitis A IgM Ab Hep Bs Antigen Hep B Core IgM Ab Hepatitis C Antibody Hepatitis C Ab Index Blood Type Antibody Screen Studies: EEG, 07/18: mild-moderate encephalopathy due to sedation. No epileptiform discharges. CXR, 07/18: cardiogenic pulmonary edema with possible pneumonia in LLL. Unchanged from prior film CT abd/pelvis, 07/17: 1. Multifocal pneumonia 2. No etiology for elevated LFTS 3. Nonspecific left perirenal/armani-adrenal stranding without other findings to suggest pyelonephritis CT brain, 07/17: 1. No acute intracranial pathoogy 2. Mild chronic small vessel ischemic disease CXR, 07/17: LLL infiltrate (my read) Nutrition: NPO until weaning off pressors Impression: 77 yo F with 3 day history of shortness of breath, chest pain, nausea and vomiting after eating at [employer]. Initially seen in ED on 07/15 and workup felt consistent with acute viral infection. Returns to ED on 07/17 for worsening shortness of breath. CXR shows new LLL, WBC elevated. Admitted with multifocal community acquired pneumonia and septic shock. Found to have elevated LFTs. US and CT discordant regarding thickened GB wall. GI consulted. Plan: Cardiovascular: (1) Septic shock; (2) Pacemaker in situ; (3) NSTEMI, demand mediated; (4) Chronic Benign essential HTN -- HR 69-84 -- SBP 75-136 -- Telemetry -- TTE ordered -- Vasopressors Levophed @ 6 mcg/min, titrate to MAP > 65 -- warfarin - on hold for ERCP -- ASA - on hold for ERCP -- atorvastatin, lipid panel added to AM labs -- BNP ordered, as low urine output despite 5+L in and decreasing pressor need Home meds: Warfarin, Atenolol, Atorvastatin Pulmonary: (1) Community acquired multifocal pneumonia, (2) acute hypoxic respiratory failure requiring intubation; (3) hx of bronchitis -- RR 14-24 -- sats 92-100% on Vent -- AM ABG pending -- CXR 07/19 completed,new RUL infiltrate in addition to known LML and LLL infiltrates. Official read pending -- PRN Albuterol and Atrovent inhalers -- Broad spectrum abx for PNA coverage Home meds: None Gastrointestinal: (1) Acute nausea and vomiting; (2) Hyperbilirubinemia, improving; (3) hx of constipation/diarrhea and nausea over the past 9+ months -- LFTs, follow trend Tbili 1.30 from 1.90 from 2.4 ALK 128 from 177 from 204 AST 65 from 146 from 184 ALT 71 from 137 from 167 -- Ammonia 50, within normal limits -- Pancreatic enzymes Amylase 14 Lipase <10 -- Hepatitis panel pending -- US gall bladder: 8mm wall -- diet: NPO until weaning off pressors -- bowel regimen: None -- ulcer prophylaxis: Protonix -- Zofran as needed for vomiting -- GI consulted regarding elevated LFTs and thickened wall. Possible ERCP today Home meds: Omeprazole, Zofran Endocrine: (1) hx of thyroid cancer s/p thyroidectomy and radiation; (2) Hyperglycemia -- monitor BGs -- SSI -- Synthroid Home meds: Synthroid Renal: (1) chronic stress incontinence; (2) Chronic kidney disease; (3) Hyponatremia, improving; (4) Hypocalcemia; () Oliguria -- UOP: 12 ml/hr -- I/O: 5905/483 -- Cr 0.95 -- Lytes Na 139 from 136, on NS gtt, follow trend K 4.8 Ca 7.0, replacement ordered Mag 1.8, replacement ordered Phos 3.5 -- IVF: NS @ 100 ml/hr Home meds: None Infectious disease: (1) Multifocal bilateral community acquired pneumonia; (2) Sepsis; (3) Possible cholecystitis -- Tmax 101.3F -- WBC 18.8 from 15.9 -- Micro 07/18 sputum in process 07/17 Flu screen Negative Urinalysis Negative Urine Negative blood No growth to date 07/15 Flu screen negative -- ABX Rocephin Azithromycin -- LFTs currently improving and vasopressor need decreasing, if this changes will consider cholecystostomy tube placement Home meds: PRN Valacyclovir Neurologic: (1) New onset seizure activity; (2) Acute metabolic encephalopathy ; (3) chronic back and shoulder pain; (4) chronic bilateral leg neuropathy; (5) chronic headaches -- Propofol gtt for sedation -- PRN Fentanyl for pain control -- PRN Tylenol & Ibuprofen for fevers -- Neurology consult appreciated -- Lexapro Home meds: LexaproOlegarioco Hematological: No acute issues -- Hgb 11.3 from 12.7, dilutional, follow trend -- Plt 180 from 171 -- Coags INR 1.62, FFP ordered. goal < 1.3 for procedure -- DVT prophylaxis: home warfarin - on hold for ERCP -- ASA - on hold for ERCP Home meds: Warfarin Metabolic: (1) Lactic acidosis, improving -- Lactic acid pending -- IVF resuscitation Home meds: None Other: Home meds: Vitamin D, MVI Deep vein thrombosis prophylaxis: Warfarin Dietary: Protonix Condition: critical Prognosis: guarded Code status: full Disposition: continue ICU care Updated patient's son Jude at bedside regarding clinical progress and plan of care Cumulative time spent in the care of this patient (excluding any procedure time) : at least 50 minutes. Patient care included clinical interview (with patient and/or family), bedside exam of the patient, review of labs, x-rays, and other ancillary data, coordination of (respiratory, nursing care, review of patient's records, discussion regarding patients management with involved consultants, primary physician, pharmacists, and other healthcare personnel (dietary, case management , physical/occupational therapy etc.) Critical Care Time: 50
[2018-07-19] MEDS ORDERED: Phytonadione IV (Adult)* 10 MG/ML 1 ML AMP IV ONE (07:26)
[2018-07-19] MEDS: cefTRIAXone(*) 1 GM in NS 0.9% 50 ML* 50 ML IVPB SCH (07:59)
[2018-07-19] MEDS ORDERED: Phytonadione 10 mg in 50 mL NS over 30 min IV ONE (08:00)
[2018-07-19] MEDS ORDERED: Magnesium Sulfate 1 GM IV* 1 GM/100 ML BAG IV ONE (08:00)
[2018-07-19] MEDS ORDERED: Calcium Gluconate INJ* 1 GM in NS 0.9% 50 ML* 50 ML IVPB ONE (08:30)
[2018-07-19] MEDS: Pantoprazole IV* 40 MG IV SCH (10:13)
[2018-07-19] MEDS: Citalopram TAB* 20 MG PO SCH (10:18)
[2018-07-19] MEDS: Norepinephrine VIAL* 4 MG in NS 0.9% 250 ML* 246 ML IV SCH (10:24)
[2018-07-19] MEDS: Azithromycin IV(*) 500 MG in NS 0.9% 250 ML* 250 ML IVPB SCH (11:38)
[2018-07-19] MEDS ORDERED: Furosemide IV* 10 MG/ML VIAL (40 MG) IV ONE (14:34)
--- NOTE | 2018-07-19 15:08 | ECHO ---
Patient: ORACIO LO [facility] Rec#: [id number] : 1940 Date: 07/19/2018 Age: 77y Height: 162.56 cm / 64.0 in Weight: 73.48 kg / 161.9 lbs Sex: F BSA: 1.79 Room#: [facility] Admit Date#: 07/17/2018 Type: Inpatient Referring: Felisa Santoyo Reading: Viky Hi MD Corn Grower: Shanon Kang RDCS CC: Jojo Clark MD Transthoracic Echocardiogram Indication: [place] BP: 87/60 HR: 74 Rhythm: Paced Findings History: A-fib,s/p pacer,HTN,DM,thyroid cancer. Currently sedated ,intubated and mechanically ventilated. Levophed gtt running at 6mcg/min during this study. Technical Comments: The study was technically limited due to the patient's inability to lay in the left lateral decubitus position. Completed at 1055. The study is technically limited due to patient being intubated and on a ventilator. Left Ventricle: The left ventricular chamber size is normal. The left ventricle appears hyperdynamic. The estimated ejection fraction is greater than 65%. Base of the inferior wall relatively hypokinetic, all other areas hyperdynamic. There is abnormal ventricular septal wall motion consistent with right ventricular pacemaker. The assessment of diastolic function is non-diagnostic. Left Atrium: The left atrium is mildly dilated. Right Ventricle: The right ventricular cavity size is normal. The right ventricular global systolic function is hyperdynamic. The septum has abnormal paradoxical motion consistent with RV pacemaker. A pacemaker wire is visualized in the right ventricle. Right Atrium: The right atrial cavity size is normal. A pacemaker wire is visualized in the right atrium. Aortic Valve: The aortic valve is trileaflet. There is no evidence of aortic regurgitation. There is no evidence of aortic stenosis. Mitral Valve: The mitral valve leaflets are mildly thickened. There is a trace of mitral regurgitation. There is no evidence of mitral stenosis. Tricuspid Valve: The tricuspid valve leaflets are normal. There is mild tricuspid regurgitation. There is evidence that pulmonary hypertension may be underestimated. There is no tricuspid stenosis. Pulmonic Valve: The pulmonic valve appears normal. There is mild pulmonic regurgitation. There is no pulmonic stenosis. Pericardium: The pericardium appears normal. Aorta: The ascending aorta is not well visualized. The aortic arch is not well visualized. There is no dilation of the aortic root. Pulmonary Artery: The main pulmonary artery appears normal. Venous: Unable to accurately comment on the size collapsibility of the IVC as the patient in known to be on mechanical ventilation. Conclusions The study is technically limited due to patient being intubated and on a ventilator. The left ventricular chamber size is normal. The left ventricle appears overall hyperdynamic, EF Greater Than 65%, septal dyskinesis and relative hypokinesis of the base of the inferior wall. The right ventricular global systolic function is hyperdynamic. There is a trace of mitral regurgitation. There is mild tricuspid regurgitation. Compared with prior echo of 08/12/17, EF stable, basilar inferior hypokinesis new, septal abnormalities seen previously, prior EF was 60-65%, valve function is not significantly changed. Measurements Name Value Normal Range RVIDd (AP) 2D 2.7 cm (0.9 - 2.6) RVDdMajor (2D) 4.4 cm (2.2 - 4.4) RAd ISD 4CH 4.6 cm (3.4 - 4.9) RA (A4C)W 4.3 cm (2.9 - 4.6) IVSd (2D) 0.8 cm (0.6 - 1) LVPWd (2D) 1 cm (0.6 - 1) LVIDd (2D) 3.8 cm (3.6 - 5.4) LVIDs (2D) 1.8 cm - LV FS (2D) 52 % (25 - 45) Aortic Annulus 2.2 cm (1.4 - 2.6) Ao root diameter (2D) 3.4 cm (2.1 - 3.5) LA dimension (AP) 2D 4.1 cm (2.3 - 3.8) LAd ISD 4CH 5 cm (2.9 - 5.3) LA ISD 4CH W 4.4 cm (2.5 - 4.5) Name Value Normal Range LA ESV SP 4CH (A/L) 51 ml - LA ESV SP 2CH (A/L) 68 ml - LA ESV BP (A/L) 63 ml - LA ESV BP (A/L) index 35.47 ml/m2 - LA ESV SP 4CH (MOD) 49 ml - LA ESV SP 2CH (MOD) 63 ml - Name Value Normal Range MV E-wave Vmax 1.1 m/sec - MV deceleration time 149 msec - MV A-wave Vmax 0.6 m/sec - MV E:A ratio 1.95 ratio - LV septal e' Vmax 0.1 m/sec - LV lateral e' Vmax 0.05 m/sec - LV E:e' septal ratio 11 ratio - LV E:e' lateral ratio 22 ratio - Name Value Normal Range AV Vmax 1.8 m/sec - AV VTI 29.2 cm - AV peak gradient 13.12 mmHg - AV mean gradient 6.41 mmHg - LVOT Vmax 1.1 m/sec - LVOT VTI 17.1 cm - LVOT peak gradient 5.07 mmHg - LVOT mean gradient 2.2 mmHg - Name Value Normal Range MR Vmax 4.5 m/sec - MR VTI 126 cm - Name Value Normal Range TR Vmax 2.9 m/sec - TR peak gradient 34 mmHg - Name Value Normal Range PV Vmax 1 m/sec - PV peak gradient 3.66 mmHg -
[2018-07-19] MEDS: Albuterol/Ipratropium NEB.SOL* Albuterol 2.5 MG/Ipratropium 0.5 MG 3 ML INH SCH ×2 (17:35→20:11)
[2018-07-19] MEDS: Heparin VIAL(*) 5000 UNITS/ML VIAL (FIVE THOUSAND) SUBCUT SCH (20:38)
[2018-07-19] MEDS: Atorvastatin* 80 MG TAB PO SCH (20:39)
[2018-07-19] MEDS: Acetaminophen ADULT LIQ* 650 MG/20.3 ML UDC PO PRN (22:41)
[2018-07-20] MEDS: Chlorhexidine MOUTHWASH 0.12%* 15 ML UDC TOPICAL SCH ×7 (00:39→23:58)
[2018-07-20] MEDS: Albuterol/Ipratropium NEB.SOL* Albuterol 2.5 MG/Ipratropium 0.5 MG 3 ML INH SCH ×4 (01:04→19:17)
[2018-07-20] MEDS: NS 0.9% 1000 ML** 1,000 ML IV SCH ×3 (01:42→14:00)
[2018-07-20] MEDS: Norepinephrine VIAL* 4 MG in NS 0.9% 250 ML* 246 ML IV SCH (01:42)
[2018-07-20] MEDS: Propofol* 100 ML IV SCH ×2 (05:15→21:59)
[2018-07-20 05:43] LABS: Hematocrit 31 % (35-47); Hemoglobin 10.3 g/dl (12.0-16.0); Mean Corpuscular HGB Conc 33 g/dl (31-36); Mean Corpuscular Hemoglobin 31 pg (27-31); Mean Corpuscular Volume 94 fL (80-97); Mean Platelet Volume 9.2 fL (7.4-10.4); Platelet Count 186 10^3/ul (150-450); Red Blood Count 3.34 10^6/ul (4.00-5.40); Red Cell Distribution Width 15 % (10.5-15); White Blood Count 19.6 10^3/ul (3.5-10.8)
[2018-07-20 05:50] LABS: INR 1.07 (0.77-1.02)
[2018-07-20 06:02] LABS: Albumin 2.6 g/dL (3.2-5.2); Albumin/Globulin Ratio 0.9 (1-3); BUN/Creatinine Ratio 24.5 (8-20); Calcium 7.6 mg/dL (8.6-10.3); EGFR African American 40.3 (>60); EGFR Non-African American 33.3 (>60); Globulin 2.9 g/dL (2-4); HDL Cholesterol 10.7 mg/dL; Magnesium 2.1 mg/dL (1.9-2.7); Phosphorus 3.7 mg/dL (2.5-5.0); Potassium 4.1 mmol/L (3.5-5.0); Total Bilirubin 1.3 mg/dL (0.2-1.0); Total Protein 5.5 g/dL (6.4-8.9)
[2018-07-20] MEDS: Levothyroxine TAB* 150 MCG TAB PO SCH (06:08)
[2018-07-20] MEDS ORDERED: Calcium Gluconate INJ* 1 GM in NS 0.9% 50 ML* 50 ML IVPB ONE (07:38)
--- NOTE | 2018-07-20 07:48 | PN ---
Date of Service: 07/20/18 - HD 4 Critical Care Services: 77 yo F with PMH including thyroid cancer s/p resection and radiation, chronic pain, chronic (9+mo hx) of nausea, constipation and diarrhea was seen recently in the ED on 07/15 with complaints of nausea, vomiting and chest pain. At that time WBC was normal, flu screen was negative anc CXR did not show an acute process. EKG demonstrated only an AV dual-paced rhythm and troponin was negative. She was dicharged home. She returns to the ED today with complaints of ongoing nausea, vomiting and shortness of breath. CXR demonstrates new LLL pneumonia and elevated WBC. Sepsis markers positive. Also found to have hyperbilirubinemia. Admitted to ICU for further workup and care Shortly after arrival to ICU she developed worsened hypoxia and became unresponsive. She was intubated for acute hypoxic respiratory failure and airway protection. A central line was placed for medication administration and lab draws. Repeat lactic acid bumped up to 3.0. Bolused an additional 2L NL with subsequent improvement to 2.[address] of head and abdomen were negative for acute pathology aside from known pneumonia and some mild nonspecific armani-adrenal fat stranding. She had a brief episode of lower extremity extention with twitching which resolved spontaneously Family updated regarding clinical course and plan of care 07/18: Overnight she required the initiation of Levophed to maintain MAPs > 65. This AM she had a second episode of lower extremity extention with twitching and periorbital twitching. Given Ativan and Keppra load and EEG ordered. Evaluated by Neurology, once sedation off patient following commands during episodes and EEG negative thus not seizure activity. No need for ongoing antiepileptics. GI consulted for elevated LFTs and findings of thickened gallbladder wall. Plan of possible ERCP on 07/19. Weaned off pressors by afternoon, but restarted in evening to keep MAPs > 65 07/19: Low urine output overnight. Bolused 1L NS. LFTs improved. Seen by GI, no need for intervention at this time. UOP decreased, BNP elevated, Lasix x 1 given. 07/20: No overnight events. Vital Signs: Temp Pulse Resp BP SpO2 FiO2 98.6 F 70 22 126/101 98 35 07/20/18 06:15 07/20/18 06:15 07/20/18 06:00 07/20/18 06:15 07/20/18 06:15 07/20 04:07 Physical Exam: Gen: intubated, resting comfortably HEENT: ETT in place Lungs: Coarse bilaterally. Cardiac: RRR Abdomen: soft, nondistended Extremities: warm, dry, edematous Neuro: sedated Fluid Balance (Past 24 Hours): I= O= Net Intake & Output 07/18/18 07/19/18 07/20/18 07/21/18 06:59 06:59 06:59 06:59 Intake Total 4094 5905 4632.5 Output Total 540 483 528 Balance 3554 5422 4104.5 Weight 162 lb 0.636 oz 167 lb 5.294 oz 171 lb 11.704 oz Intake: IV Fluids 3480 5334 2887.5 Antibiotics 1281 NS 3430 4053 2887.5 IVPB 411 Antibiotics 411 Medicated IV 614 451 630.0 Levophed 144 189 411 Magnesium 100 calcium gluconate 55 potassium 50 propofol 55 160 151.6 sodium Phosphate 260 67.4 vit k 52 Oral 0 0 0 Tube Feeding Flush Amount 120 0 Fresh Frozen Plasma 614 NG Tube Irrigate Amount 90 Output: NG Tube Drainage Amount 100 0 Urine 25 Walsh 440 458 528 Other: Estimated Void Large Estimated Stool Amount Large Large # Voids 1 ADLs: Meal Record Start: 07/17/18 17: 39 Freq: 09,13,18 Status: Active Protocol: Created 07/17/18 17:39 System (Rec: 07/17/18 17:39 System ICU-C20) Document 07/17/18 18:00 [id number] (Rec: 07/17/18 18:09 [id number] ICU-C12) Document 07/18/18 09:00 RVV1789 (Rec: 07/18/18 10:08 [id number] ICU-C15) Document 07/18/18 13:00 [id number] (Rec: 07/18/18 13:24 PDS1960 ICU-C15) Document 07/18/18 18:00 WGG3660 (Rec: 07/18/18 18:15 RKZ7565 ICU-C15) Document 07/19/18 09:00 UKH1399 (Rec: 07/19/18 09:05 [id number] ICU-M27) Document 07/19/18 12:57 WVM1795 (Rec: 07/19/18 12:58 JZH0831 ICU-L03) Document 07/19/18 18:00 [id number] (Rec: 07/19/18 18:32 [id number] ICU-C15) Intake and Output Start: 07/17/18 15: 30 Freq: Status: Active Protocol: Created 07/17/18 15:30 System (Rec: 07/17/18 15:30 System [id number]-C04) Intake and Output Start: 07/17/18 17: 39 Freq: Q1HR Status: Active Protocol: Created 07/17/18 17:39 System (Rec: 07/17/18 17:39 System ICU-C20) Document 07/17/18 18:00 [id number] (Rec: 07/17/18 18:09 [id number] ICU-C12) Document 07/17/18 20:00 IHZ0408 (Rec: 07/17/18 21:35 SCF1652 ICU-C12) Document 07/17/18 21:00 VGT6128 (Rec: 07/17/18 22:27 [id number] ICU-M27) Document 07/17/18 22:00 JRP2665 (Rec: 07/18/18 00:01 YVT7057 ICU-C12) Document 07/17/18 23:00 QKT2603 (Rec: 07/18/18 00:01 ORM2866 ICU-C12) Document 07/18/18 00:00 BHU8576 (Rec: 07/18/18 02:55 SIA8267 ICU-C12) Document 07/18/18 01:00 YLL5448 (Rec: 07/18/18 02:55 KML4869 ICU-C12) Document 07/18/18 02:00 VDR9978 (Rec: 07/18/18 02:55 SUC1965 ICU-C12) Document 07/18/18 03:00 JFP8614 (Rec: 07/18/18 03:16 AAT3884 ICU-C12) Document 07/18/18 04:00 KVK1254 (Rec: 07/18/18 05:15 KWZ6244 ICU-M27) Document 07/18/18 06:30 GQM0552 (Rec: 07/18/18 06:30 [id number] ICU-M27) Document 07/18/18 07:00 LHJ9387 (Rec: 07/18/18 07:22 GAL8230 ICU-M27) Document 07/18/18 08:00 FEK2504 (Rec: 07/18/18 09:14 [id number] ICU-M27) Document 07/18/18 09:00 IKE2152 (Rec: 07/18/18 09:15 THC7915 ICU-M27) Document 07/18/18 10:00 YKG3574 (Rec: 07/18/18 10:08 IKI6971 ICU-C15) Document 07/18/18 11:00 TUC6266 (Rec: 07/18/18 11:07 XTW1266 ICU-M27) Document 07/18/18 12:00 DTI6158 (Rec: 07/18/18 12:25 XQK7202 ICU-C15) Document 07/18/18 13:00 TQT9211 (Rec: 07/18/18 13:24 GVF2508 ICU-C15) Document 07/18/18 14:00 FMF8400 (Rec: 07/18/18 14:14 WMD3965 ICU-C15) Document 07/18/18 15:00 RHQ8933 (Rec: 07/18/18 15:13 SXJ2481 ICU-C15) Document 07/18/18 16:00 SBK0443 (Rec: 07/18/18 17:41 [id number] ICU-C15) Document 07/18/18 17:00 VYI7350 (Rec: 07/18/18 17:58 BEX9780 ICU-C15) Document 07/18/18 18:00 ZJC4205 (Rec: 07/18/18 18:15 CKD3638 ICU-C15) Document 07/18/18 21:55 TZG4558 (Rec: 07/18/18 21:55 LRQ8576 ICU-M27) Document 07/18/18 23:00 MQN6301 (Rec: 07/18/18 23:31 CLX5321 ICU-C15) Document 07/18/18 23:59 SNZ1074 (Rec: 07/18/18 23:59 IJG3815 ICU-M27) Document 07/19/18 02:58 QVI4053 (Rec: 07/19/18 02:58 LLC1428 ICU-C14) Document 07/19/18 03:00 DUR6950 (Rec: 07/19/18 03:15 MPD8866 ICU-M27) Document 07/19/18 04:00 VZR8699 (Rec: 07/19/18 05:28 BNT3565 ICU-C15) Document 07/19/18 05:00 QJS0097 (Rec: 07/19/18 05:32 KBY6753 ICU-C15) Document 07/19/18 06:00 KJS2028 (Rec: 07/19/18 06:35 EXA7300 ICU-C15) Document 07/19/18 07:00 SRP6753 (Rec: 07/19/18 09:03 PRX5863 ICU-M27) Document 07/19/18 08:00 HTO5224 (Rec: 07/19/18 09:03 KYY3679 ICU-M27) Document 07/19/18 09:00 WYO5185 (Rec: 07/19/18 09:03 GIK1053 ICU-M27) Document 07/19/18 10:00 RBC9344 (Rec: 07/19/18 10:41 FXC3342 ICU-M27) Document 07/19/18 10:45 NII1481 (Rec: 07/19/18 10:45 GRO0817 ICU-M27) Document 07/19/18 11:00 MOY5651 (Rec: 07/19/18 11:04 IDA0107 ICU-M27) Document 07/19/18 12:00 EQJ7255 (Rec: 07/19/18 12:12 UDJ7751 ICU-M27) Document 07/19/18 12:59 PPH8322 (Rec: 07/19/18 12:59 UOO6965 ICU-L03) Document 07/19/18 13:56 VEX6648 (Rec: 07/19/18 13:57 HVI4975 ICU-L03) Document 07/19/18 14:54 ATB5520 (Rec: 07/19/18 14:54 [id number] ICU-L03) Document 07/19/18 16:00 BRX3950 (Rec: 07/19/18 16:42 JLG5901 ICU-C15) Document 07/19/18 17:00 BWU2144 (Rec: 07/19/18 18:31 [id number] ICU-C15) Document 07/19/18 18:00 LJA7974 (Rec: 07/19/18 18:32 UMT0986 ICU-C15) Document 07/19/18 19:00 FAO2490 (Rec: 07/19/18 19:16 NED3458 ICU-M27) Document 07/19/18 21:00 UHJ5129 (Rec: 07/19/18 21:27 [id number] [facility]-M03 ) Document 07/19/18 22:00 RHP7650 (Rec: 07/19/18 22:13 GUB3802 ICU-L03) Document 07/19/18 22:54 JGK1523 (Rec: 07/19/18 22:54 IJL2199 ICU-M27) Document 07/20/18 00:00 ENF5645 (Rec: 07/20/18 01:34 JMR8673 ICU-L03) Document 07/20/18 01:00 RXS1554 (Rec: 07/20/18 01:34 KNA3855 ICU-L03) Document 07/20/18 02:00 ZMB2197 (Rec: 07/20/18 02:07 RZM0674 ICU-L03) Document 07/20/18 03:00 BWX8829 (Rec: 07/20/18 04:37 [id number] ICU-L03) Document 07/20/18 04:00 HDV0808 (Rec: 07/20/18 04:37 IKD1131 ICU-L03) Document 07/20/18 05:00 UYN6130 (Rec: 07/20/18 05:12 IGC5732 ICU-L03) Document 07/20/18 06:00 JUJ7318 (Rec: 07/20/18 06:07 KYM5154 ICU-M27) Labs: Laboratory Results - last 24 hr 07/18/18 07/19/18 07/19/18 17:47 07:45 07:45 WBC RBC Hgb Hct MCV MCH MCHC RDW Plt Count MPV INR (Anticoag Therapy) Sodium Potassium Chloride Carbon Dioxide Anion Gap BUN Creatinine Est GFR ( Amer) Est GFR (Non-Af Amer) BUN/Creatinine Ratio Glucose Lactic Acid 2.8 H* Calcium Phosphorus Magnesium Total Bilirubin AST ALT Alkaline Phosphatase B-Natriuretic Peptide 398 H Total Protein Albumin Globulin Albumin/Globulin Ratio Triglycerides Cholesterol LDL Cholesterol HDL Cholesterol Blood Type A Positive Antibody Screen Negative 07/19/18 07/20/18 07/20/18 16:30 05:30 05:30 WBC RBC Hgb Hct MCV MCH MCHC RDW Plt Count MPV INR (Anticoag Therapy) 1.07 H Sodium 136 Potassium 4.1 Chloride 111 Carbon Dioxide 19 L Anion Gap 6 BUN 37 H Creatinine 1.51 H Est GFR ( Amer) 40.3 Est GFR (Non-Af Amer) 33.3 BUN/Creatinine Ratio 24.5 H Glucose 128 H Lactic Acid 2.6 H* Calcium 7.6 L Phosphorus 3.7 Magnesium 2.1 Total Bilirubin 1.30 H AST 64 H ALT 58 H Alkaline Phosphatase 130 H B-Natriuretic Peptide Total Protein 5.5 L Albumin 2.6 L Globulin 2.9 Albumin/Globulin Ratio 0.9 L Triglycerides 161 Cholesterol 60 LDL Cholesterol 17 HDL Cholesterol 10.7 Blood Type Antibody Screen 07/20/18 07/20/18 05:30 05:33 WBC 19.6 H RBC 3.34 L Hgb 10.3 L Hct 31 L MCV 94 MCH 31 MCHC 33 RDW 15 Plt Count 186 MPV 9.2 INR (Anticoag Therapy) Sodium Potassium Chloride Carbon Dioxide Anion Gap BUN Creatinine Est GFR ( Amer) Est GFR (Non-Af Amer) BUN/Creatinine Ratio Glucose Lactic Acid 1.4 Calcium Phosphorus Magnesium Total Bilirubin AST ALT Alkaline Phosphatase B-Natriuretic Peptide Total Protein Albumin Globulin Albumin/Globulin Ratio Triglycerides Cholesterol LDL Cholesterol HDL Cholesterol Blood Type Antibody Screen Studies: 07/20 CXR: Improvement in pulmonary edema as compared to 07/19 film 07/19 CXR: findings suggestive of pneumonia with 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 increased density in right paratracheal region. 07/18 EEG: mild-moderate encephalopathy due to sedation. No epileptiform discharges. 07/18 CXR: cardiogenic pulmonary edema with possible pneumonia in LLL. Unchanged from prior film 07/17 CT abd/pelvis: 1. Multifocal pneumonia 2. No etiology for elevated LFTS 3. Nonspecific left perirenal/armani-adrenal stranding without other findings to suggest pyelonephritis 07/17 CT brain: 1. No acute intracranial pathoogy 2. Mild chronic small vessel ischemic disease 07/17 CXR: LLL infiltrate (my read) Nutrition: start TF today Impression: 77 yo F with 3 day history of shortness of breath, chest pain, nausea and vomiting after eating at [place]. Initially seen in ED on 07/15 and workup felt consistent with acute viral infection. Returns to ED on 07/17 for worsening shortness of breath. CXR shows new LLL, WBC elevated. Admitted with multifocal community acquired pneumonia and septic shock. LFTs elevated on admission but improving. Now with LANIE on CKD. Plan: Cardiovascular: (1) Septic shock; (2) Pacemaker in situ; (3) NSTEMI, demand mediated; (4) Chronic Benign essential HTN -- HR 69-71 -- SBP 86-163 -- Telemetry -- Lipid panel Trigluycerides 161, borderline high cholesterol 60 LDL 17 HDL 10.7, low -- TTE, 07/19: Hyperdynamic LVEF -- Vasopressors Levophed @ 3 mcg/min, titrate to MAP > 65 -- ASA -- atorvastatin Home meds: Warfarin, Atenolol, Atorvastatin Pulmonary: (1) Community acquired multifocal pneumonia, (2) acute hypoxic respiratory failure requiring intubation; (3) hx of bronchitis -- RR 15-26 -- sats 92-100% on Vent -- AM ABG pending -- CXR 07/20: improvement in pulmonary edema. -- PRN Albuterol and Atrovent inhalers -- Broad spectrum abx for PNA coverage Home meds: None Gastrointestinal: (1) Acute nausea and vomiting; (2) Hyperbilirubinemia, improving; (3) hx of constipation/diarrhea and nausea over the past 9+ months -- LFTs, follow trend Tbili 1.30 from 1.30 ALK 130 from 128 AST 64 from 65 ALT 58 from 71 -- Hepatitis panel negative -- US gall bladder: 8mm wall, but no surrounding fat stranding or pericholecystic fluid -- diet: start TF -- bowel regimen: None -- ulcer prophylaxis: Protonix -- Zofran as needed for vomiting -- GI following Home meds: Omeprazole, Zofran Endocrine: (1) hx of thyroid cancer s/p thyroidectomy and radiation; (2) Hyperglycemia -- monitor BGs -- SSI -- Synthroid Home meds: Synthroid Renal: (1) chronic stress incontinence; (2) LANIE on Chronic kidney disease; (3) Hyponatremia, improving; (4) Hypocalcemia; (5) Oliguria -- UOP: 22 ml/hr -- I/O: 4632/528 -- Cr 1.51 from 1.29 -- Lytes Na 136 from 139 K 4.1 Ca 7.6, replacement ordered Mag 2.1 Phos 3.7 -- IVF: NS @ 100 ml/hr, HLIVF when tolerating TF Home meds: None Infectious disease: (1) Multifocal bilateral community acquired pneumonia; (2) Sepsis; (3) Possible cholecystitis -- Tmax 101.1F -- WBC 19.6 from 18.8 -- Micro 07/18 sputum No growth to date 07/17 Flu screen Negative Urinalysis Negative Urine Negative blood No growth to date 07/15 Flu screen negative -- ABX Rocephin Azithromycin -- LFTs currently improving and vasopressor need decreasing, if this changes will consider cholecystostomy tube placement Home meds: PRN Valacyclovir Neurologic: (1) New onset seizure activity; (2) Acute metabolic encephalopathy ; (3) chronic back and shoulder pain; (4) chronic bilateral leg neuropathy; (5) chronic headaches -- Propofol gtt for sedation -- PRN Fentanyl for pain control -- PRN Tylenol & Ibuprofen for fevers -- Neurology consult appreciated -- Lexapro Home meds: Lexapro, [place] Hematological: No acute issues -- Hgb 10.3 from 11.3 -- Plt 186 from 180 -- Coags INR 1.07 -- DVT prophylaxis: SQ Heparin -- ASA - on hold for ERCP Home meds: Warfarin Metabolic: (1) Lactic acidosis, improving -- Lactic acid 1.4 from 2.6 from 2.8 -- IVF resuscitation Home meds: None Other: Home meds: Vitamin D, MVI Deep vein thrombosis prophylaxis: SQ Heparin Dietary: Protonix Condition: critical Prognosis: guarded Code status: full Disposition: continue ICU care Cumulative time spent in the care of this patient (excluding any procedure time) : at least 50 minutes. Patient care included clinical interview (with patient and/or family), bedside exam of the patient, review of labs, x-rays, and other ancillary data, coordination of (respiratory, nursing care, review of patient's records, discussion regarding patients management with involved consultants, primary physician, pharmacists, and other healthcare personnel (dietary, case management , physical/occupational therapy etc.) Critical Care Time: 50
[2018-07-20] MEDS: cefTRIAXone(*) 1 GM in NS 0.9% 50 ML* 50 ML IVPB SCH (08:00)
[2018-07-20] MEDS: Pantoprazole IV* 40 MG IV SCH (08:05)
[2018-07-20] MEDS: Heparin VIAL(*) 5000 UNITS/ML VIAL (FIVE THOUSAND) SUBCUT SCH ×2 (08:12→21:03)
[2018-07-20] MEDS: Citalopram TAB* 20 MG PO SCH (11:10)
[2018-07-20] MEDS: Aspirin 81 mg CHEW TAB* 81 MG TAB.CHEW PO SCH (11:10)
[2018-07-20] MEDS: Azithromycin IV(*) 500 MG in NS 0.9% 250 ML* 250 ML IVPB SCH (11:11)
[2018-07-20] MEDS ORDERED: Albumin Human 25%* 25 GM/100 ML BTL IV ONE (14:00)
[2018-07-20] MEDS ORDERED: Albumin Human 25%* 25 GM/100 ML BTL IV SCH (14:00)
[2018-07-20] MEDS ORDERED: Furosemide IV* 10 MG/ML 2 ML VIAL (20 MG) IV ONE (15:00)
[2018-07-20] MEDS: fentaNYL* 50 MCG/ML 2 ML VIAL (100 MCG VIAL) IV SLOW PU PRN (16:12)
[2018-07-20] MEDS: Atorvastatin* 80 MG TAB PO SCH (21:03)
[2018-07-21] MEDS: Albuterol/Ipratropium NEB.SOL* Albuterol 2.5 MG/Ipratropium 0.5 MG 3 ML INH SCH ×4 (01:59→19:11)
[2018-07-21] MEDS: Norepinephrine VIAL* 4 MG in NS 0.9% 250 ML* 246 ML IV SCH (02:15)
[2018-07-21] MEDS: Chlorhexidine MOUTHWASH 0.12%* 15 ML UDC TOPICAL SCH ×6 (04:03→23:45)
[2018-07-21 04:46] LABS: Hematocrit 29 % (35-47); Hemoglobin 9.6 g/dl (12.0-16.0); Mean Corpuscular HGB Conc 33 g/dl (31-36); Mean Corpuscular Hemoglobin 31 pg (27-31); Mean Corpuscular Volume 95 fL (80-97); Mean Platelet Volume 8.5 fL (7.4-10.4); Platelet Count 162 10^3/ul (150-450); Red Blood Count 3.09 10^6/ul (4.00-5.40); Red Cell Distribution Width 15 % (10.5-15); White Blood Count 12.6 10^3/ul (3.5-10.8)
[2018-07-21 04:49] LABS: INR 0.99 (0.77-1.02)
[2018-07-21 04:55] LABS: Albumin 2.6 g/dL (3.2-5.2); Calcium 7.2 mg/dL (8.6-10.3); Magnesium 2.4 mg/dL (1.9-2.7); Potassium 3.8 mmol/L (3.5-5.0); Total Bilirubin 1.2 mg/dL (0.2-1.0)
[2018-07-21 05:01] LABS: Albumin/Globulin Ratio 1.1 (1-3); BUN/Creatinine Ratio 26.5 (8-20); EGFR African American 39.1 (>60); EGFR Non-African American 32.3 (>60); Globulin 2.3 g/dL (2-4); Phosphorus 3.4 mg/dL (2.5-5.0); Total Protein 4.9 g/dL (6.4-8.9)
[2018-07-21] MEDS: Levothyroxine TAB* 150 MCG TAB PO SCH (05:45)
[2018-07-21] MEDS: NS 0.9% 1000 ML** 1,000 ML IV SCH (05:54)
[2018-07-21] MEDS: Propofol* 100 ML IV SCH (07:04)
[2018-07-21] MEDS ORDERED: Calcium Gluconate INJ* 2 GM in NS 0.9% 100 ML* 100 ML IV ONE (07:42)
--- NOTE | 2018-07-21 07:50 | PN ---
Date of Service: 07/21/18 - 5 Critical Care Services: 77 yo F with PMH including thyroid cancer s/p resection and radiation, chronic pain, chronic (9+mo hx) of nausea, constipation and diarrhea was seen recently in the ED on 07/15 with complaints of nausea, vomiting and chest pain. At that time WBC was normal, flu screen was negative anc CXR did not show an acute process. EKG demonstrated only an AV dual-paced rhythm and troponin was negative. She was dicharged home. She returns to the ED today with complaints of ongoing nausea, vomiting and shortness of breath. CXR demonstrates new LLL pneumonia and elevated WBC. Sepsis markers positive. Also found to have hyperbilirubinemia. Admitted to ICU for further workup and care Shortly after arrival to ICU she developed worsened hypoxia and became unresponsive. She was intubated for acute hypoxic respiratory failure and airway protection. A central line was placed for medication administration and lab draws. Repeat lactic acid bumped up to 3.0. Bolused an additional 2L NL with subsequent improvement to 2.[address] of head and abdomen were negative for acute pathology aside from known pneumonia and some mild nonspecific armani-adrenal fat stranding. She had a brief episode of lower extremity extention with twitching which resolved spontaneously Family updated regarding clinical course and plan of care 07/18: Overnight she required the initiation of Levophed to maintain MAPs > 65. This AM she had a second episode of lower extremity extention with twitching and periorbital twitching. Given Ativan and Keppra load and EEG ordered. Evaluated by Neurology, once sedation off patient following commands during episodes and EEG negative thus not seizure activity. No need for ongoing antiepileptics. GI consulted for elevated LFTs and findings of thickened gallbladder wall. Plan of possible ERCP on 07/19. Weaned off pressors by afternoon, but restarted in evening to keep MAPs > 65 07/19: Low urine output overnight. Bolused 1L NS. LFTs improved. Seen by GI, no need for intervention at this time. UOP decreased, BNP elevated, Lasix x 1 given. 07/20: Given Lasix x 2 for low urine output and volume overload. On minimal pressors (1-3 mcg/min Levophed). TF started. 07/21: No overnight events. Vital Signs: Temp Pulse Resp BP SpO2 FiO2 99.7 F 70 22 151/66 93 30 01/11/19 07:01 07/21/18 07:01 07/21/18 07:00 07/21/18 07:00 07/21/18 07:01 07/21 04:00 Physical Exam: Gen: intubated, sedated. resting comfortably HEENT: ETT in place Lungs: coarse bilaterally Cardiac: RRR Abdomen: soft, NTND Extremities: warm, dry. Pitting edema x 4 Neuro: sedated Fluid Balance (Past 24 Hours): I= O= Net Intake & Output 07/19/18 07/20/18 07/21/18 07/22/18 06:59 06:59 06:59 06:59 Intake Total 5905 4632.5 2974.9 Output Total 483 528 787 45 Balance 5422 4104.5 2187.9 -45 Weight 167 lb 5.294 oz 171 lb 11.704 oz Intake: IV Fluids 5334 2887.5 1892 Antibiotics 1281 Calcium Gluconate 65 KVO WITH CEFTRIAXONE 231 KVO with Azithromycin 203 NS 4053 2887.5 1393 IVPB 411 310 Antibiotics 411 KVO WITH CEFTRIAXONE 60 KVO with Azithromycin 250 Medicated IV 451 630.0 297.9 Levophed 189 411 81.6 Magnesium 0 potassium 50 0 propofol 160 151.6 216.3 sodium Phosphate 67.4 0 vit k 52 0 Oral 0 0 0 Tube Feeding 325 Tube Feeding Flush Amount 120 0 30 Fresh Frozen Plasma 614 0 NG Tube Irrigate Amount 90 120 Output: NG Tube Drainage Amount 0 0 Urine 25 Walsh 458 528 787 45 Other: Date of Last Bowel t Movement # Bowel Movements 1 Estimated Stool Amount Large Large Small ADLs: Meal Record Start: 07/17/18 17: 39 Freq: 09,13,18 Status: Active Protocol: Created 07/17/18 17:39 System (Rec: 07/17/18 17:39 System ICU-C20) Document 07/17/18 18:00 [id number] (Rec: 07/17/18 18:09 VBD9120 ICU-C12) Document 07/18/18 09:00 GVJ6683 (Rec: 07/18/18 10:08 SUS4725 ICU-C15) Document 07/18/18 13:00 EGP6425 (Rec: 07/18/18 13:24 MNE5922 ICU-C15) Document 07/18/18 18:00 QZL8800 (Rec: 07/18/18 18:15 QDW6078 ICU-C15) Document 07/19/18 09:00 VBC1742 (Rec: 07/19/18 09:05 IRF9632 ICU-M27) Document 07/19/18 12:57 HAT1940 (Rec: 07/19/18 12:58 MKC8874 ICU-L03) Document 07/19/18 18:00 CQZ7198 (Rec: 07/19/18 18:32 BIO6577 ICU-C15) Document 07/20/18 09:00 YLX6072 (Rec: 07/20/18 09:21 QBA8048 ICU-C15) Document 07/20/18 13:00 XBA2566 (Rec: 07/20/18 13:27 QXI5507 ICU-C15) Document 07/20/18 17:06 UGG5315 (Rec: 07/20/18 17:06 BYJ1019 ICU-C15) Intake and Output Start: 07/17/18 15: 30 Freq: Status: Active Protocol: Created 07/17/18 15:30 System (Rec: 07/17/18 15:30 System EDRM-C04) Intake and Output Start: 07/17/18 17: 39 Freq: Q1HR Status: Active Protocol: Created 07/17/18 17:39 System (Rec: 07/17/18 17:39 System ICU-C20) Document 07/17/18 18:00 ZKH9415 (Rec: 07/17/18 18:09 BIK1568 ICU-C12) Document 07/17/18 20:00 ESJ2098 (Rec: 07/17/18 21:35 CGF2232 ICU-C12) Document 07/17/18 21:00 FCK7552 (Rec: 07/17/18 22:27 RFR9302 ICU-M27) Document 07/17/18 22:00 TAE5573 (Rec: 07/18/18 00:01 YHT2782 ICU-C12) Document 07/17/18 23:00 FQR9334 (Rec: 07/18/18 00:01 QWN4727 ICU-C12) Document 07/18/18 00:00 PQI8901 (Rec: 07/18/18 02:55 HKZ4461 ICU-C12) Document 07/18/18 01:00 FUD5978 (Rec: 07/18/18 02:55 ODF9463 ICU-C12) Document 07/18/18 02:00 CSF2798 (Rec: 07/18/18 02:55 KMJ3332 ICU-C12) Document 07/18/18 03:00 BZH6637 (Rec: 07/18/18 03:16 HKU4250 ICU-C12) Document 07/18/18 04:00 CML7746 (Rec: 07/18/18 05:15 RCQ1025 ICU-M27) Document 07/18/18 06:30 UIX1367 (Rec: 07/18/18 06:30 PSV1826 ICU-M27) Document 07/18/18 07:00 YZF5036 (Rec: 07/18/18 07:22 WNN8712 ICU-M27) Document 07/18/18 08:00 SUS6388 (Rec: 07/18/18 09:14 MFP5868 ICU-M27) Document 07/18/18 09:00 LBE8866 (Rec: 07/18/18 09:15 IWS9284 ICU-M27) Document 07/18/18 10:00 PNZ6344 (Rec: 07/18/18 10:08 LRO3470 ICU-C15) Document 07/18/18 11:00 BTR3774 (Rec: 07/18/18 11:07 JAC7931 ICU-M27) Document 07/18/18 12:00 EYV5013 (Rec: 07/18/18 12:25 ESU8920 ICU-C15) Document 07/18/18 13:00 ZTA0709 (Rec: 07/18/18 13:24 PUH7135 ICU-C15) Document 07/18/18 14:00 OHF8023 (Rec: 07/18/18 14:14 XBI0457 ICU-C15) Document 07/18/18 15:00 CRC6205 (Rec: 07/18/18 15:13 LXU4808 ICU-C15) Document 07/18/18 16:00 IVU9892 (Rec: 07/18/18 17:41 CJK2203 ICU-C15) Document 07/18/18 17:00 WOH8597 (Rec: 07/18/18 17:58 CCC5092 ICU-C15) Document 07/18/18 18:00 JJZ7195 (Rec: 07/18/18 18:15 BYF5917 ICU-C15) Document 07/18/18 21:55 MYE9364 (Rec: 07/18/18 21:55 TWV3770 ICU-M27) Document 07/18/18 23:00 VCK8152 (Rec: 07/18/18 23:31 PZH2823 ICU-C15) Document 07/18/18 23:59 ECP1738 (Rec: 07/18/18 23:59 JUL3891 ICU-M27) Document 07/19/18 02:58 REP9465 (Rec: 07/19/18 02:58 LBB4599 ICU-C14) Document 07/19/18 03:00 NIM9196 (Rec: 07/19/18 03:15 EOJ7909 ICU-M27) Document 07/19/18 04:00 CVX7645 (Rec: 07/19/18 05:28 NXV7038 ICU-C15) Document 07/19/18 05:00 GCE7956 (Rec: 07/19/18 05:32 XLU2960 ICU-C15) Document 07/19/18 06:00 VCC0255 (Rec: 07/19/18 06:35 BDY1451 ICU-C15) Document 07/19/18 07:00 XQS6737 (Rec: 07/19/18 09:03 QNI4265 ICU-M27) Document 07/19/18 08:00 MKM8352 (Rec: 07/19/18 09:03 SYS4198 ICU-M27) Document 07/19/18 09:00 HLZ9212 (Rec: 07/19/18 09:03 HFO6148 ICU-M27) Document 07/19/18 10:00 NEN6950 (Rec: 07/19/18 10:41 OXS2029 ICU-M27) Document 07/19/18 10:45 MIH2511 (Rec: 07/19/18 10:45 EKE6573 ICU-M27) Document 07/19/18 11:00 SXX6385 (Rec: 07/19/18 11:04 JXD1652 ICU-M27) Document 07/19/18 12:00 CAN2812 (Rec: 07/19/18 12:12 UKW5665 ICU-M27) Document 07/19/18 12:59 KIJ4892 (Rec: 07/19/18 12:59 ZVM8967 ICU-L03) Document 07/19/18 13:56 SKX5877 (Rec: 07/19/18 13:57 ZXL6883 ICU-L03) Document 07/19/18 14:54 HLK6336 (Rec: 07/19/18 14:54 YZU6070 ICU-L03) Document 07/19/18 16:00 RHS2087 (Rec: 07/19/18 16:42 NUD2335 ICU-C15) Document 07/19/18 17:00 LWR5245 (Rec: 07/19/18 18:31 AWH2842 ICU-C15) Document 07/19/18 18:00 TFL0942 (Rec: 07/19/18 18:32 DEU1415 ICU-C15) Document 07/19/18 19:00 NNB2554 (Rec: 07/19/18 19:16 MJI1687 ICU-M27) Document 07/19/18 21:00 EYQ3307 (Rec: 07/19/18 21:27 XZY4188 [facility]-M03 ) Document 07/19/18 22:00 TSK4652 (Rec: 07/19/18 22:13 APM1377 ICU-L03) Document 07/19/18 22:54 CVB7551 (Rec: 07/19/18 22:54 WYO3994 ICU-M27) Document 07/20/18 00:00 JEH2606 (Rec: 07/20/18 01:34 NEX9873 ICU-L03) Document 07/20/18 01:00 NQS3441 (Rec: 07/20/18 01:34 ZLA5400 ICU-L03) Document 07/20/18 02:00 XBF8315 (Rec: 07/20/18 02:07 WYN0320 ICU-L03) Document 07/20/18 03:00 XWH9757 (Rec: 07/20/18 04:37 JPF2839 ICU-L03) Document 07/20/18 04:00 OYR0001 (Rec: 07/20/18 04:37 PTK1818 ICU-L03) Document 07/20/18 05:00 CGF1086 (Rec: 07/20/18 05:12 BDN8365 ICU-L03) Document 07/20/18 06:00 NYL8323 (Rec: 07/20/18 06:07 LFD8313 ICU-M27) Document 07/20/18 07:00 MZB7339 (Rec: 07/20/18 07:32 ABD7611 ICU-C15) Document 07/20/18 08:00 QLU6519 (Rec: 07/20/18 09:00 CRE4576 ICU-C15) Document 07/20/18 09:00 QJQ3931 (Rec: 07/20/18 09:19 LXG9359 ICU-C15) Document 07/20/18 10:00 QGK9827 (Rec: 07/20/18 10:46 ZFN3996 ICU-C15) Document 07/20/18 10:47 CSY5423 (Rec: 07/20/18 10:47 XDE3826 ICU-C15) Document 07/20/18 12:17 UAI2514 (Rec: 07/20/18 12:17 TSS3012 ICU-C15) Document 07/20/18 13:00 BRD4953 (Rec: 07/20/18 13:27 OAY3257 ICU-C15) Document 07/20/18 14:16 KTT3698 (Rec: 07/20/18 14:16 NJJ4530 ICU-M27) Document 07/20/18 15:00 UTO1390 (Rec: 07/20/18 15:03 MSA5987 ICU-M27) Document 07/20/18 16:14 CIE2345 (Rec: 07/20/18 16:14 NHN8643 ICU-M27) Document 07/20/18 17:07 BUW1998 (Rec: 07/20/18 17:07 TDC3601 ICU-C15) Document 07/20/18 18:20 VDM5125 (Rec: 07/20/18 18:20 LUB5995 ISDEMO-M03 ) Document 07/20/18 19:00 NSX3750 (Rec: 07/20/18 21:34 QSD8397 ICU-C15) Document 07/20/18 21:00 DIS8580 (Rec: 07/20/18 21:35 TTP1573 ICU-C15) Document 07/20/18 22:00 WQT1120 (Rec: 07/20/18 22:12 AOZ2193 ICU-C15) Document 07/20/18 23:00 GMP6510 (Rec: 07/20/18 23:13 QRP2907 ICU-C15) Document 07/21/18 01:00 KMU3806 (Rec: 07/21/18 01:35 MWW6636 ICU-C15) Document 07/21/18 02:00 ZFG7828 (Rec: 07/21/18 02:14 XXL1904 ICU-C15) Document 07/21/18 03:00 WIA8835 (Rec: 07/21/18 03:44 AHH2300 ICU-C25) Document 07/21/18 05:00 QHY0833 (Rec: 07/21/18 05:05 JST2638 ICU-C15) Document 07/21/18 06:00 SPY7062 (Rec: 07/21/18 06:23 KFZ4003 ICU-C15) Document 07/21/18 07:00 WMB6193 (Rec: 07/21/18 07:20 NFS0484 ICU-C12) Labs: Laboratory Results - last 24 hr 07/21/18 07/21/18 07/21/18 04:35 04:35 04:35 WBC 12.6 H RBC 3.09 L Hgb 9.6 L Hct 29 L MCV 95 MCH 31 MCHC 33 RDW 15 Plt Count 162 MPV 8.5 INR (Anticoag Therapy) 0.99 Sodium 140 Potassium 3.8 Chloride 113 H Carbon Dioxide 18 L Anion Gap 9 BUN 41 H Creatinine 1.55 H Est GFR ( Amer) 39.1 Est GFR (Non-Af Amer) 32.3 BUN/Creatinine Ratio 26.5 H Glucose 129 H Calcium 7.2 L Phosphorus 3.4 Magnesium 2.4 Total Bilirubin 1.20 H AST 63 H ALT 47 Alkaline Phosphatase 133 H Total Protein 4.9 L Albumin 2.6 L Globulin 2.3 Albumin/Globulin Ratio 1.1 Studies: 07/20 CXR: Improvement in pulmonary edema as compared to 07/19 film 07/19 CXR: findings suggestive of pneumonia with 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 increased density in right paratracheal region. 07/18 EEG: mild-moderate encephalopathy due to sedation. No epileptiform discharges. 07/18 CXR: cardiogenic pulmonary edema with possible pneumonia in LLL. Unchanged from prior film 07/17 CT abd/pelvis: 1. Multifocal pneumonia 2. No etiology for elevated LFTS 3. Nonspecific left perirenal/armani-adrenal stranding without other findings to suggest pyelonephritis 07/17 CT brain: 1. No acute intracranial pathoogy 2. Mild chronic small vessel ischemic disease 07/17 CXR: LLL infiltrate (my read) Nutrition: TF started: Glucerna 1.2, goal rate 50 ml/hr Impression: 77 yo F with 3 day history of shortness of breath, chest pain, nausea and vomiting after eating at [facility]. Initially seen in ED on 07/15 and workup felt consistent with acute viral infection. Returns to ED on 07/17 for worsening shortness of breath. CXR shows new LLL, WBC elevated. Admitted with multifocal community acquired pneumonia and septic shock. LFTs elevated on admission but improving. Now with LANIE on CKD. Plan: Cardiovascular: (1) Septic shock, improving; (2) Pacemaker in situ; (3) NSTEMI , demand mediated; (4) Chronic Benign essential HTN -- HR 70-78 -- SBP 99-169 -- Telemetry -- Lipid panel Trigluycerides 161, borderline high cholesterol 60 LDL 17 HDL 10.7, low -- TTE, 07/19: Hyperdynamic LVEF -- Vasopressors Levophed @ 2 mcg/min, titrate to MAP > 65 -- ASA -- atorvastatin -- resume home atenolol once off vasopressors -- start scheduled Lasix for diuresis. BNP ordered. Home meds: Warfarin, Atenolol, Atorvastatin Pulmonary: (1) Community acquired multifocal pneumonia, (2) acute hypoxic respiratory failure requiring intubation; (3) hx of bronchitis -- RR 16-24 -- sats 91-100% on Vent -- daily sedation vacation and spontaneous breathing trial -- AM ABG pending -- CXR 07/21 pending -- PRN Albuterol and Atrovent inhalers -- Broad spectrum abx for PNA coverage Home meds: None Gastrointestinal: (1) Acute nausea and vomiting; (2) Hyperbilirubinemia, improving; (3) hx of constipation/diarrhea and nausea over the past 9+ months -- LFTs, follow trend Tbili 1.20 from 1.30 ALK 13 from 130 AST 63 from 64 ALT 47 -- Hepatitis panel negative -- US gall bladder: 8mm wall, but no surrounding fat stranding or pericholecystic fluid -- diet: start TF -- bowel regimen: None -- ulcer prophylaxis: Protonix -- Zofran as needed for vomiting -- GI following Home meds: Omeprazole, Zofran Endocrine: (1) hx of thyroid cancer s/p thyroidectomy and radiation; (2) Hyperglycemia -- monitor BGs -- SSI -- Synthroid Home meds: Synthroid Renal: (1) chronic stress incontinence; (2) LANIE on Chronic kidney disease; (3) Hyponatremia, improving; (4) Hypocalcemia; (5) Oliguria -- UOP: 33 ml/hr -- I/O: 2975/787 -- Cr 1.55 from 1.51 -- Lytes Na 140 from 136 K 3.8 Ca 7.2, replacement ordered Mag 2.4 Phos 3.4 -- IVF: HLIVF as now on TF and actively diuresing for volume overload -- start scheduled Lasix for diuresis Home meds: None Infectious disease: (1) Multifocal bilateral community acquired pneumonia; (2) Sepsis; (3) Possible cholecystitis -- Tmax 100.2F -- WBC 12.6 from 19.6 -- Micro 8 sputum Negative 07/17 Flu screen Negative Urinalysis Negative Urine Negative blood No growth to date 07/15 Flu screen negative -- ABX Rocephin Azithromycin -- LFTs currently improving and vasopressor need decreasing, if this changes will consider cholecystostomy tube placement Home meds: PRN Valacyclovir Neurologic: (1) Acute metabolic encephalopathy; (2) chronic back and shoulder pain; (3) chronic bilateral leg neuropathy; (4) chronic headaches; (5) Quesiton of seizure activity determined to NOT be seizures -- Propofol gtt for sedation -- PRN Fentanyl for pain control -- PRN Tylenol & Ibuprofen for fevers -- Neurology consult appreciated -- Lexapro Home meds: Lexapro [place] Hematological: No acute issues -- Hgb 9.6 from 10.3 -- Plt 162 from 186 -- Coags INR 0.99 -- DVT prophylaxis: SQ Heparin -- ASA Home meds: Warfarin Metabolic: (1) Lactic acidosis, resolved -- Lactic acid 1.4 from 2.6 from 2.8 Home meds: None Other: Home meds: Vitamin D, MVI Deep vein thrombosis prophylaxis: SQ Heparin Dietary: Protonix Condition: critical Prognosis: guarded Code status: full Disposition: continue ICU care Cumulative time spent in the care of this patient (excluding any procedure time) : at least 40 minutes. Patient care included clinical interview (with patient and/or family), bedside exam of the patient, review of labs, x-rays, and other ancillary data, coordination of (respiratory, nursing care, review of patient's records, discussion regarding patients management with involved consultants, primary physician, pharmacists, and other healthcare personnel (dietary, case management , physical/occupational therapy etc.) Critical Care Time: 40
[2018-07-21] MEDS: Citalopram TAB* 20 MG PO SCH (07:58)
[2018-07-21] MEDS: Pantoprazole IV* 40 MG IV SCH (07:58)
[2018-07-21] MEDS: Aspirin 81 mg CHEW TAB* 81 MG TAB.CHEW PO SCH (07:58)
[2018-07-21] MEDS: Heparin VIAL(*) 5000 UNITS/ML VIAL (FIVE THOUSAND) SUBCUT SCH ×2 (07:59→20:31)
[2018-07-21] MEDS: cefTRIAXone(*) 1 GM in NS 0.9% 50 ML* 50 ML IVPB SCH (08:14)
[2018-07-21] MEDS: Furosemide IV* 10 MG/ML VIAL (40 MG) IV SCH (08:41)
[2018-07-21] MEDS: Azithromycin IV(*) 500 MG in NS 0.9% 250 ML* 250 ML IVPB SCH (08:41)
[2018-07-21] MEDS: fentaNYL* 50 MCG/ML 2 ML VIAL (100 MCG VIAL) IV SLOW PU PRN ×4 (11:25→22:07)
[2018-07-21] MEDS: Acetaminophen ADULT LIQ* 650 MG/20.3 ML UDC PO PRN (11:25)
[2018-07-21] MEDS ORDERED: Furosemide IV* 10 MG/ML VIAL (40 MG) IV ONE (15:00)
[2018-07-21] MEDS ORDERED: hydrALAZINE IV* 20 MG/ML VIAL ONE (15:33)
[2018-07-21] MEDS: hydrALAZINE IV* 20 MG/ML VIAL IV SLOW PU PRN ×2 (15:35→22:07)
[2018-07-21] MEDS: Atorvastatin* 80 MG TAB PO SCH (20:31)
[2018-07-22] MEDS: fentaNYL* 50 MCG/ML 2 ML VIAL (100 MCG VIAL) IV SLOW PU PRN ×5 (01:05→09:10)
[2018-07-22] MEDS: Albuterol/Ipratropium NEB.SOL* Albuterol 2.5 MG/Ipratropium 0.5 MG 3 ML INH SCH ×4 (01:07→19:02)
[2018-07-22] MEDS: Norepinephrine VIAL* 4 MG in NS 0.9% 250 ML* 246 ML IV SCH (01:33)
[2018-07-22] MEDS: Chlorhexidine MOUTHWASH 0.12%* 15 ML UDC TOPICAL SCH ×5 (03:19→20:36)
[2018-07-22] MEDS: Levothyroxine TAB* 150 MCG TAB PO SCH (05:07)
[2018-07-22 05:39] LABS: Hematocrit 31 % (35-47); Hemoglobin 10.3 g/dl (12.0-16.0); Mean Corpuscular HGB Conc 33 g/dl (31-36); Mean Corpuscular Hemoglobin 31 pg (27-31); Mean Corpuscular Volume 93 fL (80-97); Platelet Count 186 10^3/ul (150-450); Red Blood Count 3.34 10^6/ul (4.00-5.40); Red Cell Distribution Width 15 % (10.5-15); White Blood Count 13.1 10^3/ul (3.5-10.8)
[2018-07-22 05:44] LABS: INR 1.02 (0.77-1.02)
[2018-07-22 05:56] LABS: Albumin 2.7 g/dL (3.2-5.2); Albumin/Globulin Ratio 0.8 (1-3); BUN/Creatinine Ratio 28.7 (8-20); Calcium 7.9 mg/dL (8.6-10.3); EGFR African American 34.8 (>60); EGFR Non-African American 28.8 (>60); Globulin 3.3 g/dL (2-4); Magnesium 2.4 mg/dL (1.9-2.7); Phosphorus 3.4 mg/dL (2.5-5.0); Potassium 3.5 mmol/L (3.5-5.0); Total Bilirubin 0.9 mg/dL (0.2-1.0)
[2018-07-22] MEDS: hydrALAZINE IV* 20 MG/ML VIAL IV SLOW PU PRN (06:54)
[2018-07-22] MEDS: Heparin VIAL(*) 5000 UNITS/ML VIAL (FIVE THOUSAND) SUBCUT SCH ×2 (07:21→20:36)
[2018-07-22] MEDS: Pantoprazole IV* 40 MG IV SCH (07:21)
[2018-07-22] MEDS: Citalopram TAB* 20 MG PO SCH (07:21)
[2018-07-22] MEDS: Aspirin 81 mg CHEW TAB* 81 MG TAB.CHEW PO SCH (07:21)
[2018-07-22] MEDS: Furosemide IV* 10 MG/ML VIAL (40 MG) IV SCH (07:21)
[2018-07-22] MEDS ORDERED: Metoclopramide IV* 5 MG/ML 2 ML VIAL IV SLOW PU ONE (08:03)
[2018-07-22] MEDS ORDERED: Metoclopramide IV* 5 MG/ML 2 ML VIAL IV ONE (08:20)
[2018-07-22] MEDS: Azithromycin IV(*) 500 MG in NS 0.9% 250 ML* 250 ML IVPB SCH (08:24)
[2018-07-22] MEDS ORDERED: Metoclopramide IV* 5 MG/ML 2 ML VIAL ONE (08:30)
[2018-07-22] MEDS ORDERED: Calcium Gluconate INJ* 1 GM in NS 0.9% 50 ML* 50 ML IVPB ONE (08:32)
[2018-07-22] MEDS: cefTRIAXone(*) 1 GM in NS 0.9% 50 ML* 50 ML IVPB SCH (08:35)
[2018-07-22] MEDS ORDERED: Albumin Human 25%* 12.5 GM/50 ML BTL IV ONE ×3 (08:37→14:00)
[2018-07-22] MEDS ORDERED: Dexmedetomidine* 400 MCG in NS 0.9% 100 ML* 96 ML IVPB SCH (09:00)
--- NOTE | 2018-07-22 12:48 | PN ---
Date of Service: 07/22/18 - 6 Critical Care Services: 77 yo F with PMH including thyroid cancer s/p resection and radiation, chronic pain, chronic (9+mo hx) of nausea, constipation and diarrhea was seen recently in the ED on 07/15 with complaints of nausea, vomiting and chest pain. At that time WBC was normal, flu screen was negative anc CXR did not show an acute process. EKG demonstrated only an AV dual-paced rhythm and troponin was negative. She was dicharged home. She returns to the ED today with complaints of ongoing nausea, vomiting and shortness of breath. CXR demonstrates new LLL pneumonia and elevated WBC. Sepsis markers positive. Also found to have hyperbilirubinemia. Admitted to ICU for further workup and care Shortly after arrival to ICU she developed worsened hypoxia and became unresponsive. She was intubated for acute hypoxic respiratory failure and airway protection. A central line was placed for medication administration and lab draws. Repeat lactic acid bumped up to 3.0. Bolused an additional 2L NL with subsequent improvement to 2.[address] of head and abdomen were negative for acute pathology aside from known pneumonia and some mild nonspecific armani-adrenal fat stranding. She had a brief episode of lower extremity extention with twitching which resolved spontaneously Family updated regarding clinical course and plan of care 07/18: Overnight she required the initiation of Levophed to maintain MAPs > 65. This AM she had a second episode of lower extremity extention with twitching and periorbital twitching. Given Ativan and Keppra load and EEG ordered. Evaluated by Neurology, once sedation off patient following commands during episodes and EEG negative thus not seizure activity. No need for ongoing antiepileptics. GI consulted for elevated LFTs and findings of thickened gallbladder wall. Plan of possible ERCP on 07/19. Weaned off pressors by afternoon, but restarted in evening to keep MAPs > 65 07/19: Low urine output overnight. Bolused 1L NS. LFTs improved. Seen by GI, no need for intervention at this time. UOP decreased, BNP elevated, Lasix x 1 given. 07/20: Given Lasix x 2 for low urine output and volume overload. On minimal pressors (1-3 mcg/min Levophed). TF started. 07/21: Tolerated spontaneous breathing trial x 12 hours. Slow to awaken during sedation vacation. Vasopressors weaned off. 07/22: No overnight events Vital Signs: Temp Pulse Resp BP SpO2 FiO2 98.6 F 73 22 187/76 93 30 07/22/18 08:01 07/22/18 08:01 07/22/18 08:00 07/22/18 08:01 07/22/18 08:01 07/22 08:00 Physical Exam: Gen: Restless HEENT: ETT in place Lungs: Coarse bilaterally Cardiac: RRR Abdomen: Soft, NTND Extremities: warm, dry, edematous Neuro: restless off Propofol. Fluid Balance (Past 24 Hours): I= O= Net Intake & Output 07/20/18 07/21/18 07/22/18 07/23/18 06:59 06:59 06:59 06:59 Intake Total 4632.5 2974.9 1332 859 Output Total 289 152 5986 705 Balance 4104.5 2187.9 -489 154 Weight 171 lb 11.704 oz 172 lb 13.595 oz Intake: IV Fluids 2887.5 1892 721 Azithromycin 203 276 Calcium Gluconate 65 KVO WITH CEFTRIAXONE 231 55 NS 2887.5 1393 390 IVPB 411 310 110 Antibiotics 411 Azithromycin 250 Calcium Gluconate 60 KVO WITH CEFTRIAXONE 60 50 Medicated IV 630.0 297.9 57 Levophed 411 81.6 Magnesium 0 potassium 0 propofol 151.6 216.3 57 sodium Phosphate 67.4 0 vit k 0 Oral 0 0 Tube Feeding 325 354 769 Tube Feeding Flush Amount 0 30 90 90 Fresh Frozen Plasma 614 0 NG Tube Irrigate Amount 90 120 Output: NG Tube Drainage Amount 0 0 Walsh 045 966 4265 205 Tube Feeding Residual 70 500 Amount Wasted Other: Date of Last Bowel t Movement # Bowel Movements 1 Estimated Stool Amount Large Small Large ADLs: Meal Record Start: 07/17/18 17: 39 Freq: 09,,18 Status: Active Protocol: Created 07/17/18 17:39 System (Rec: 07/17/18 17:39 System ICU-C20) Document 07/17/18 18:00 [id number] (Rec: 07/17/18 18:09 TLU6133 ICU-C12) Document 07/18/18 09:00 YOL8511 (Rec: 07/18/18 10:08 DFS5568 ICU-C15) Document 07/18/18 13:00 GKQ6056 (Rec: 07/18/18 13:24 NZR1862 ICU-C15) Document 07/18/18 18:00 RCF0033 (Rec: 07/18/18 18:15 QXI3838 ICU-C15) Document 07/19/18 09:00 QOH5258 (Rec: 07/19/18 09:05 LDR3608 ICU-M27) Document 07/19/18 12:57 TJW2628 (Rec: 07/19/18 12:58 BSQ9763 ICU-L03) Document 07/19/18 18:00 XQM2443 (Rec: 07/19/18 18:32 WRS4287 ICU-C15) Document 07/20/18 09:00 YXG5797 (Rec: 07/20/18 09:21 OCU9669 ICU-C15) Document 07/20/18 13:00 IMH6906 (Rec: 07/20/18 13:27 RFQ9245 ICU-C15) Document 07/20/18 17:06 ZME8986 (Rec: 07/20/18 17:06 VMH1744 ICU-C15) Document 07/21/18 08:55 HMZ1383 (Rec: 07/21/18 08:55 LGQ0505 ICU-M27) Document 07/21/18 12:37 VNY7122 (Rec: 07/21/18 12:37 FJB4736 ICU-C12) Document 07/21/18 17:01 WDJ1359 (Rec: 07/21/18 17:01 GCR3452 ICU-C12) Intake and Output Start: 07/17/18 15: 30 Freq: Status: Active Protocol: Created 07/17/18 15:30 System (Rec: 07/17/18 15:30 System EDRM-C04) Intake and Output Start: 07/17/18 17: 39 Freq: Q1HR Status: Active Protocol: Created 07/17/18 17:39 System (Rec: 07/17/18 17:39 System ICU-C20) Document 07/17/18 18:00 KPC6551 (Rec: 07/17/18 18:09 POF5588 ICU-C12) Document 07/17/18 20:00 FDI9831 (Rec: 07/17/18 21:35 VEZ7397 ICU-C12) Document 07/17/18 21:00 HQX9824 (Rec: 07/17/18 22:27 GQC4069 ICU-M27) Document 07/17/18 22:00 FDQ1893 (Rec: 07/18/18 00:01 PQR1430 ICU-C12) Document 07/17/18 23:00 HOQ8483 (Rec: 07/18/18 00:01 NRZ9951 ICU-C12) Document 07/18/18 00:00 VFW4117 (Rec: 07/18/18 02:55 MOX6841 ICU-C12) Document 07/18/18 01:00 YIV5509 (Rec: 07/18/18 02:55 TWM8308 ICU-C12) Document 07/18/18 02:00 WDX7429 (Rec: 07/18/18 02:55 VHR8088 ICU-C12) Document 07/18/18 03:00 DTY7531 (Rec: 07/18/18 03:16 CPE9646 ICU-C12) Document 07/18/18 04:00 ZGJ3912 (Rec: 07/18/18 05:15 OXY1474 ICU-M27) Document 07/18/18 06:30 BIT1802 (Rec: 07/18/18 06:30 HZS6771 ICU-M27) Document 07/18/18 07:00 GEC5829 (Rec: 07/18/18 07:22 HJA1606 ICU-M27) Document 07/18/18 08:00 FIW7780 (Rec: 07/18/18 09:14 BCQ9727 ICU-M27) Document 07/18/18 09:00 XHC4442 (Rec: 07/18/18 09:15 CEF6641 ICU-M27) Document 07/18/18 10:00 XJX5300 (Rec: 07/18/18 10:08 JBH1139 ICU-C15) Document 07/18/18 11:00 AJH9815 (Rec: 07/18/18 11:07 POG5509 ICU-M27) Document 07/18/18 12:00 NSY3927 (Rec: 07/18/18 12:25 JJP4976 ICU-C15) Document 07/18/18 13:00 MKK4718 (Rec: 07/18/18 13:24 SYX3620 ICU-C15) Document 07/18/18 14:00 FJX5850 (Rec: 07/18/18 14:14 CXD3770 ICU-C15) Document 07/18/18 15:00 APC2638 (Rec: 07/18/18 15:13 PVR6009 ICU-C15) Document 07/18/18 16:00 HCE3071 (Rec: 07/18/18 17:41 OHK2982 ICU-C15) Document 07/18/18 17:00 KNU6798 (Rec: 07/18/18 17:58 MPP3203 ICU-C15) Document 07/18/18 18:00 TIN2204 (Rec: 07/18/18 18:15 GLB0453 ICU-C15) Document 07/18/18 21:55 QOE4282 (Rec: 07/18/18 21:55 YKX1533 ICU-M27) Document 07/18/18 23:00 IAW1482 (Rec: 07/18/18 23:31 GEJ9723 ICU-C15) Document 07/18/18 23:59 WAP1894 (Rec: 07/18/18 23:59 MXL0228 ICU-M27) Document 07/19/18 02:58 KWN0649 (Rec: 07/19/18 02:58 UTQ4761 ICU-C14) Document 07/19/18 03:00 TKO8177 (Rec: 07/19/18 03:15 JLD2683 ICU-M27) Document 07/19/18 04:00 GMU4385 (Rec: 07/19/18 05:28 KCF4861 ICU-C15) Document 07/19/18 05:00 KSZ3194 (Rec: 07/19/18 05:32 EQH6913 ICU-C15) Document 07/19/18 06:00 CKZ7907 (Rec: 07/19/18 06:35 JRS9870 ICU-C15) Document 07/19/18 07:00 LOT8881 (Rec: 07/19/18 09:03 OLD8388 ICU-M27) Document 07/19/18 08:00 PJM2414 (Rec: 07/19/18 09:03 XGT1450 ICU-M27) Document 07/19/18 09:00 OPL6074 (Rec: 07/19/18 09:03 TTG2844 ICU-M27) Document 07/19/18 10:00 QVX3759 (Rec: 07/19/18 10:41 FVB3667 ICU-M27) Document 07/19/18 10:45 XFC2991 (Rec: 07/19/18 10:45 MTZ3891 ICU-M27) Document 07/19/18 11:00 HFR3990 (Rec: 07/19/18 11:04 NZB3616 ICU-M27) Document 07/19/18 12:00 HYM2096 (Rec: 07/19/18 12:12 KVC8783 ICU-M27) Document 07/19/18 12:59 GEP5860 (Rec: 07/19/18 12:59 ICV0591 ICU-L03) Document 07/19/18 13:56 XJE0365 (Rec: 07/19/18 13:57 CXD8728 ICU-L03) Document 07/19/18 14:54 MYP7976 (Rec: 07/19/18 14:54 DGY2957 ICU-L03) Document 07/19/18 16:00 GFM3445 (Rec: 07/19/18 16:42 FYY5505 ICU-C15) Document 07/19/18 17:00 MUM8486 (Rec: 07/19/18 18:31 QDZ7000 ICU-C15) Document 07/19/18 18:00 BNM4361 (Rec: 07/19/18 18:32 POX9158 ICU-C15) Document 07/19/18 19:00 ULQ1788 (Rec: 07/19/18 19:16 HHH8497 ICU-M27) Document 07/19/18 21:00 OGC4775 (Rec: 07/19/18 21:27 MPU5790 [facility]-3 ) Document 07/19/18 22:00 KKW1951 (Rec: 07/19/18 22:13 NUV9969 ICU-L03) Document 07/19/18 22:54 GMZ1642 (Rec: 07/19/18 22:54 GEN4316 ICU-M27) Document 07/20/18 00:00 VGD6811 (Rec: 07/20/18 01:34 RQC7787 ICU-L03) Document 07/20/18 01:00 YDW2374 (Rec: 07/20/18 01:34 CFR3365 ICU-L03) Document 07/20/18 02:00 MQI8382 (Rec: 07/20/18 02:07 BDB6858 ICU-L03) Document 07/20/18 03:00 UUR7200 (Rec: 07/20/18 04:37 WAP3245 ICU-L03) Document 07/20/18 04:00 YKS8376 (Rec: 07/20/18 04:37 XGF0416 ICU-L03) Document 07/20/18 05:00 KVZ0203 (Rec: 07/20/18 05:12 AJP5685 ICU-L03) Document 07/20/18 06:00 SIN0341 (Rec: 07/20/18 06:07 RXB2461 ICU-M27) Document 07/20/18 07:00 TLB0514 (Rec: 07/20/18 07:32 FGU6434 ICU-C15) Document 07/20/18 08:00 SDQ8986 (Rec: 07/20/18 09:00 ZKB2195 ICU-C15) Document 07/20/18 09:00 GQG2453 (Rec: 07/20/18 09:19 AWJ2773 ICU-C15) Document 07/20/18 10:00 OYR8239 (Rec: 07/20/18 10:46 KIP1309 ICU-C15) Document 07/20/18 10:47 BTK9166 (Rec: 07/20/18 10:47 NYQ3217 ICU-C15) Document 07/20/18 12:17 ODR8012 (Rec: 07/20/18 12:17 RGN6381 ICU-C15) Document 07/20/18 13:00 FGP8912 (Rec: 07/20/18 13:27 NZC0955 ICU-C15) Document 07/20/18 14:16 ZSP2060 (Rec: 07/20/18 14:16 WUW1299 ICU-M27) Document 07/20/18 15:00 ZLA3964 (Rec: 07/20/18 15:03 KLC5816 ICU-M27) Document 07/20/18 16:14 RSC9515 (Rec: 07/20/18 16:14 HCM5229 ICU-M27) Document 07/20/18 17:07 DPR2893 (Rec: 07/20/18 17:07 JUE2904 ICU-C15) Document 07/20/18 18:20 XNQ5743 (Rec: 07/20/18 18:20 JGY9774 ISDEMO-M03 ) Document 07/20/18 19:00 TKN0195 (Rec: 07/20/18 21:34 NCA9523 ICU-C15) Document 07/20/18 21:00 XHM4320 (Rec: 07/20/18 21:35 JFB3912 ICU-C15) Document 07/20/18 22:00 NOS5820 (Rec: 07/20/18 22:12 PCL3556 ICU-C15) Document 07/20/18 23:00 IEG6300 (Rec: 07/20/18 23:13 JZU6069 ICU-C15) Document 07/21/18 01:00 UNR3830 (Rec: 07/21/18 01:35 JIH3272 ICU-C15) Document 07/21/18 02:00 MLZ2862 (Rec: 07/21/18 02:14 XIM4749 ICU-C15) Document 07/21/18 03:00 OOI6784 (Rec: 07/21/18 03:44 KXH1691 ICU-C25) Document 07/21/18 05:00 WST9921 (Rec: 07/21/18 05:05 XRG9690 ICU-C15) Document 07/21/18 06:00 JPG3195 (Rec: 07/21/18 06:23 PNA0939 ICU-C15) Document 07/21/18 07:00 KKI7827 (Rec: 07/21/18 07:20 OEC0575 ICU-C12) Document 07/21/18 08:11 BAF7296 (Rec: 07/21/18 08:11 NSZ3321 ICU-M27) Document 07/21/18 08:54 NQU4020 (Rec: 07/21/18 08:55 YTG2921 ICU-M27) Document 07/21/18 10:00 PRP3074 (Rec: 07/21/18 10:03 HYN6843 ICU-C12) Document 07/21/18 10:59 PTY2984 (Rec: 07/21/18 10:59 ATN9830 ICU-C12) Document 07/21/18 12:33 UAI5139 (Rec: 07/21/18 12:33 ZKT0443 ICU-C12) Document 07/21/18 13:06 VQG2929 (Rec: 07/21/18 13:06 KLF8575 ICU-C12) Document 07/21/18 14:00 XSM6528 (Rec: 07/21/18 14:06 FYT0096 ICU-C12) Document 07/21/18 16:00 HAV7351 (Rec: 07/21/18 16:01 KJL0315 ICU-C12) Document 07/21/18 16:54 EIS3249 (Rec: 07/21/18 16:54 ZYC0404 ICU-C12) Document 07/21/18 18:00 ZIT2501 (Rec: 07/21/18 18:02 GHJ4691 ICU-C12) Document 07/21/18 19:00 MJQ8927 (Rec: 07/21/18 19:56 KBJ3603 ICU-C15) Document 07/21/18 20:00 KXX9496 (Rec: 07/21/18 21:16 GSN4183 ICU-C15) Document 07/21/18 21:00 KMC1491 (Rec: 07/21/18 21:16 QZT8099 ICU-C15) Document 07/21/18 22:00 PZL3928 (Rec: 07/21/18 22:01 FCV7119 ICU-C15) Document 07/21/18 23:00 OEG3477 (Rec: 07/22/18 00:28 GEV7245 ICU-C15) Document 07/22/18 00:00 MGM7993 (Rec: 07/22/18 00:28 KVI0537 ICU-C15) Document 07/22/18 01:00 DHP5389 (Rec: 07/22/18 01:29 BEN7691 ICU-C15) Document 07/22/18 02:00 KJC0480 (Rec: 07/22/18 03:53 AFC1300 ICU-C15) Document 07/22/18 03:00 HSV3489 (Rec: 07/22/18 03:54 ZTG7067 ICU-C15) Document 07/22/18 04:00 VNM9662 (Rec: 07/22/18 05:40 IWG2647 ICU-M27) Document 07/22/18 05:00 TFP1825 (Rec: 07/22/18 05:40 NRC1161 ICU-M27) Document 07/22/18 05:39 RNB9660 (Rec: 07/22/18 05:40 OID5255 ICU-M27) Document 07/22/18 07:56 QCS1889 (Rec: 07/22/18 07:57 SUI7133 ICU-M27) Labs: Laboratory Results - last 24 hr 07/21/18 07/21/18 07/22/18 08:09 16:20 05:17 WBC 13.1 H RBC 3.34 L Hgb 10.3 L Hct 31 L MCV 93 MCH 31 MCHC 33 RDW 15 Plt Count 186 MPV 9.0 INR (Anticoag Therapy) Patient Temperature Not Reportable ABG pH 7.27 L ABG pH (Temp Correct) Not Reportable ABG pCO2 34 L ABG pCO2 (Temp Corrct Not Reportable ABG pO2 99 ABG pO2 (Temp Correct Not Reportable ABG HCO3 16.9 L ABG O2 Saturation 98.7 H ABG Base Excess -10.3 L Respiration Rate Not Reportable O2 Delivery Device vent Ventilator Type Not Reportable Vent Mode spon FiO2 40 Inspiratory Time Not Reportable PEEP Not Reportable Pressure Support Not Reportable Pressure Control Not Reportable EPAP Not Reportable IPAP Not Reportable BiPAP Not Reportable Sodium Potassium Chloride Carbon Dioxide Anion Gap BUN Creatinine Est GFR ( Amer) Est GFR (Non-Af Amer) BUN/Creatinine Ratio Glucose Calcium Phosphorus Magnesium Total Bilirubin AST ALT Alkaline Phosphatase B-Natriuretic Peptide 394 H Total Protein Albumin Globulin Albumin/Globulin Ratio 07/22/18 07/22/18 05:17 05:17 WBC RBC Hgb Hct MCV MCH MCHC RDW Plt Count MPV INR (Anticoag Therapy) 1.02 Patient Temperature ABG pH ABG pH (Temp Correct) ABG pCO2 ABG pCO2 (Temp Corrct ABG pO2 ABG pO2 (Temp Correct ABG HCO3 ABG O2 Saturation ABG Base Excess Respiration Rate O2 Delivery Device Ventilator Type Vent Mode FiO2 Inspiratory Time PEEP Pressure Support Pressure Control EPAP IPAP BiPAP Sodium 141 Potassium 3.5 Chloride 112 H Carbon Dioxide 21 L Anion Gap 8 BUN 49 H Creatinine 1.71 H Est GFR ( Amer) 34.8 Est GFR (Non-Af Amer) 28.8 BUN/Creatinine Ratio 28.7 H Glucose 155 H Calcium 7.9 L Phosphorus 3.4 Magnesium 2.4 Total Bilirubin 0.90 AST 77 H ALT 42 Alkaline Phosphatase 184 H B-Natriuretic Peptide Total Protein 6.0 L Albumin 2.7 L Globulin 3.3 Albumin/Globulin Ratio 0.8 L Studies: 07/21 CXR: bilateral infiltrates with progression in RUL 07/20 CXR: Improvement in pulmonary edema as compared to 07/19 film 07/19 CXR: findings suggestive of pneumonia with 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 increased density in right paratracheal region. 07/18 EEG: mild-moderate encephalopathy due to sedation. No epileptiform discharges. 07/18 CXR: cardiogenic pulmonary edema with possible pneumonia in LLL. Unchanged from prior film 07/17 CT abd/pelvis: 1. Multifocal pneumonia 2. No etiology for elevated LFTS 3. Nonspecific left perirenal/armani-adrenal stranding without other findings to suggest pyelonephritis 07/17 CT brain: 1. No acute intracranial pathoogy 2. Mild chronic small vessel ischemic disease 07/17 CXR: LLL infiltrate (my read) Nutrition: TF started: Glucerna 1.2, goal rate 50 ml/hr Impression: 77 yo F with 3 day history of shortness of breath, chest pain, nausea and vomiting after eating at [employer]. Initially seen in ED on 07/15 and workup felt consistent with acute viral infection. Returns to ED on 07/17 for worsening shortness of breath. CXR shows new LLL, WBC elevated. Admitted with multifocal community acquired pneumonia and septic shock. LFTs elevated on admission but improving. Now with LANIE on CKD. Plan: Cardiovascular: (1) Septic shock, improving; (2) Pacemaker in situ; (3) NSTEMI , demand mediated; (4) Chronic Benign essential HTN -- HR 69-78 -- SBP 95-198 -- Telemetry -- Lipid panel Trigluycerides 161, borderline high cholesterol 60 LDL 17 HDL 10.7, low -- TTE, 07/19: Hyperdynamic LVEF -- Vasopressors Levophed weaned off -- ASA -- atorvastatin -- resume home atenolol once off vasopressors -- start scheduled Lasix for diuresis. BNP ordered. Home meds: Warfarin, Atenolol, Atorvastatin Pulmonary: (1) Community acquired multifocal pneumonia, (2) acute hypoxic respiratory failure requiring intubation; (3) hx of bronchitis -- RR 16-29 -- sats 90-95% on Vent -- daily sedation vacation and spontaneous breathing trial -- CXR 07/21 mild progression in RUL, imrprovement in L lobe -- PRN Albuterol and Atrovent inhalers -- Broad spectrum abx for PNA coverage Home meds: None Gastrointestinal: (1) Acute nausea and vomiting; (2) Hyperbilirubinemia, improving; (3) hx of constipation/diarrhea and nausea over the past 9+ months -- LFTs, follow trend Tbili 1.20 from 1.30 ALK 13 from 130 AST 63 from 64 ALT 47 -- Hepatitis panel negative -- US gall bladder: 8mm wall, but no surrounding fat stranding or pericholecystic fluid, plan for HIDA electively when clinically improved to assess for chronic condition -- diet: start TF -- bowel regimen: None -- ulcer prophylaxis: Protonix -- Zofran as needed for vomiting -- GI following Home meds: Omeprazole, Zofran Endocrine: (1) hx of thyroid cancer s/p thyroidectomy and radiation; (2) Hyperglycemia -- monitor BGs -- SSI -- Synthroid Home meds: Synthroid Renal: (1) chronic stress incontinence; (2) LANIE on Chronic kidney disease; (3) Hyponatremia, improving; (4) Hypocalcemia; (5) Oliguria -- UOP: 76 ml/hr -- I/O: 1332/1824 -- Cr 1.71 from 1.55 -- Lytes Na 141 from 140 CL 112 from 113, increase FWF to 60 ml q 4h K 3.5 Ca 7.9, replacement ordered Mag 2.4 Phos 3.4 -- IVF: HLIVF -- start scheduled Lasix for diuresis Home meds: None Infectious disease: (1) Multifocal bilateral community acquired pneumonia; (2) Sepsis; (3) Possible cholecystitis -- Tmax 100.2F -- WBC 13.1 from 12.6 -- Micro 8 sputum Negative 07/17 Flu screen Negative Urinalysis Negative Urine Negative blood No growth to date 07/15 Flu screen negative -- ABX x 7 day course Rocephin Azithromycin -- LFTs currently improving and vasopressor need decreasing, if this changes will consider cholecystostomy tube placement Home meds: PRN Valacyclovir Neurologic: (1) Acute metabolic encephalopathy; (2) chronic back and shoulder pain; (3) chronic bilateral leg neuropathy; (4) chronic headaches; (5) Quesiton of seizure activity determined to NOT be seizures -- Propofol gtt for sedation, switch to Precedex -- PRN Fentanyl for pain control -- PRN Tylenol for fevers -- Neurology consult appreciated -- Lexapro Home meds: Lexapro, [place] Hematological: No acute issues -- Hgb 10.3 from 9.6 -- Plt 186 from 162 -- Coags INR 1.02 -- DVT prophylaxis: SQ Heparin -- ASA Home meds: Warfarin Metabolic: (1) Lactic acidosis, resolved -- Lactic acid 1.4 from 2.6 from 2.8 Home meds: None Other: Home meds: Vitamin D, MVI Deep vein thrombosis prophylaxis: SQ Heparin Dietary: Protonix Condition: critical Prognosis: guarded Code status: full Disposition: continue ICU care Cumulative time spent in the care of this patient (excluding any procedure time) : at least 40 minutes. Patient care included clinical interview (with patient and/or family), bedside exam of the patient, review of labs, x-rays, and other ancillary data, coordination of (respiratory, nursing care, review of patient's records, discussion regarding patients management with involved consultants, primary physician, pharmacists, and other healthcare personnel (dietary, case management , physical/occupational therapy etc.) Critical Care Time: 40
[2018-07-22] MEDS: Atorvastatin* 80 MG TAB PO SCH (20:36)
[2018-07-23] MEDS: Chlorhexidine MOUTHWASH 0.12%* 15 ML UDC TOPICAL SCH ×6 (00:18→19:56)
[2018-07-23] MEDS: Albuterol/Ipratropium NEB.SOL* Albuterol 2.5 MG/Ipratropium 0.5 MG 3 ML INH SCH ×4 (01:03→19:06)
[2018-07-23] MEDS: Dexmedetomidine* 400 MCG in NS 0.9% 100 ML* 96 ML IVPB SCH ×2 (02:08→13:36)
[2018-07-23] MEDS: Norepinephrine VIAL* 4 MG in NS 0.9% 250 ML* 246 ML IV SCH (03:12)
[2018-07-23] MEDS: fentaNYL* 50 MCG/ML 2 ML VIAL (100 MCG VIAL) IV SLOW PU PRN ×2 (04:49→09:08)
[2018-07-23] MEDS: Levothyroxine TAB* 150 MCG TAB PO SCH (05:25)
[2018-07-23 05:40] LABS: Hematocrit 28 % (35-47); Hemoglobin 9.4 g/dl (12.0-16.0); Mean Corpuscular HGB Conc 33 g/dl (31-36); Mean Corpuscular Hemoglobin 31 pg (27-31); Mean Corpuscular Volume 93 fL (80-97); Mean Platelet Volume 8.6 fL (7.4-10.4); Platelet Count 192 10^3/ul (150-450); Red Blood Count 3.04 10^6/ul (4.00-5.40); Red Cell Distribution Width 15 % (10.5-15); White Blood Count 9.5 10^3/ul (3.5-10.8)
[2018-07-23 05:58] LABS: Albumin/Globulin Ratio 1.2 (1-3); BUN/Creatinine Ratio 36.2 (8-20); Calcium 8.4 mg/dL (8.6-10.3); EGFR African American 36.8 (>60); EGFR Non-African American 30.4 (>60); Globulin 2.6 g/dL (2-4); Magnesium 2.5 mg/dL (1.9-2.7); Phosphorus 3.2 mg/dL (2.5-5.0); Potassium 3.4 mmol/L (3.5-5.0); Total Bilirubin 0.8 mg/dL (0.2-1.0); Total Protein 5.6 g/dL (6.4-8.9)
--- NOTE | 2018-07-23 08:27 | PN ---
Date of Service: 07/23/18 - 7 Critical Care Services: 77 yo F with PMH including thyroid cancer s/p resection and radiation, chronic pain, chronic (9+mo hx) of nausea, constipation and diarrhea was seen recently in the ED on 07/15 with complaints of nausea, vomiting and chest pain. At that time WBC was normal, flu screen was negative anc CXR did not show an acute process. EKG demonstrated only an AV dual-paced rhythm and troponin was negative. She was dicharged home. She returns to the ED today with complaints of ongoing nausea, vomiting and shortness of breath. CXR demonstrates new LLL pneumonia and elevated WBC. Sepsis markers positive. Also found to have hyperbilirubinemia. Admitted to ICU for further workup and care Shortly after arrival to ICU she developed worsened hypoxia and became unresponsive. She was intubated for acute hypoxic respiratory failure and airway protection. A central line was placed for medication administration and lab draws. Repeat lactic acid bumped up to 3.0. Bolused an additional 2L NL with subsequent improvement to 2.[address] of head and abdomen were negative for acute pathology aside from known pneumonia and some mild nonspecific armani-adrenal fat stranding. She had a brief episode of lower extremity extention with twitching which resolved spontaneously Family updated regarding clinical course and plan of care 07/18: Overnight she required the initiation of Levophed to maintain MAPs > 65. This AM she had a second episode of lower extremity extention with twitching and periorbital twitching. Given Ativan and Keppra load and EEG ordered. Evaluated by Neurology, once sedation off patient following commands during episodes and EEG negative thus not seizure activity. No need for ongoing antiepileptics. GI consulted for elevated LFTs and findings of thickened gallbladder wall. Plan of possible ERCP on 07/19. Weaned off pressors by afternoon, but restarted in evening to keep MAPs > 65 07/19: Low urine output overnight. Bolused 1L NS. LFTs improved. Seen by GI, no need for intervention at this time. UOP decreased, BNP elevated, Lasix x 1 given. 07/20: Given Lasix x 2 for low urine output and volume overload. On minimal pressors (1-3 mcg/min Levophed). TF started. 07/21: Tolerated spontaneous breathing trial x 12 hours. Slow to awaken during sedation vacation. Vasopressors weaned off. 07/22: Tolerated spontaneous breathing trial during day. Beginning to arouse. Given albumin for oliguria with improvement Vital Signs: Temp Pulse Resp BP SpO2 FiO2 99.1 F 71 28 143/79 91 30 07/23/18 07:01 07/23/18 07:59 07/23/18 07:59 07/23/18 07:00 07/23/18 07:59 07/23 07:59 Physical Exam: Gen: restless, shifting in bed HEENT: ETT in place. Lungs: Coarse bilaterally Cardiac: RRR Abdomen: soft, NTND Extremities: warm, dry, edematous Neuro: opens eyes to voice but not tracking. purposeful. Wiggled toes of right foot to command x 2 Fluid Balance (Past 24 Hours): I= O= Net Intake & Output 07/21/18 07/22/18 07/23/18 07/24/18 06:59 06:59 06:59 06:59 Intake Total 2974.9 1332 1604.0 Output Total 787 1821 2185 Balance 2187.9 -489 -581.0 Weight 172 lb 13.595 oz 169 lb 8.568 oz Intake: IV Fluids 1892 721 210 Albumin 100 Azithromycin 203 276 20 Calcium Gluconate 65 40 KVO WITH CEFTRIAXONE 231 55 50 NS 1393 390 IVPB 310 110 365 Azithromycin 250 255 Calcium Gluconate 60 60 KVO WITH CEFTRIAXONE 60 50 50 Medicated IV 297.9 57 110.0 Levophed 81.6 Magnesium 0 Precedex 110.0 potassium 0 propofol 216.3 57 sodium Phosphate 0 vit k 0 Oral 0 Tube Feeding 325 354 769 Tube Feeding Flush Amount 30 90 150 Fresh Frozen Plasma 0 NG Tube Irrigate Amount 120 Output: NG Tube Drainage Amount 0 Walsh 787 1491 1660 Tube Feeding Residual 70 525 Amount Wasted Other: Date of Last Bowel t Movement # Bowel Movements 1 Estimated Stool Amount Small Large ADLs: Meal Record Start: 07/17/18 17: 39 Freq: ,, Status: Active Protocol: Created 07/17/18 17:39 System (Rec: 07/17/18 17:39 System ICU-C20) Document 07/17/18 18:00 [id number] (Rec: 07/17/18 18:09 JXP4899 ICU-C12) Document 07/18/18 09:00 LBX3865 (Rec: 07/18/18 10:08 FIJ7899 ICU-C15) Document 07/18/18 13:00 FNP4179 (Rec: 07/18/18 13:24 SJD9098 ICU-C15) Document 07/18/18 18:00 NMT9129 (Rec: 07/18/18 18:15 DYM8081 ICU-C15) Document 07/19/18 09:00 SHI3010 (Rec: 07/19/18 09:05 XGZ8553 ICU-M27) Document 07/19/18 12:57 SPI0404 (Rec: 07/19/18 12:58 WNO5926 ICU-L03) Document 07/19/18 18:00 KWS5379 (Rec: 07/19/18 18:32 JZK3342 ICU-C15) Document 07/20/18 09:00 OUZ6367 (Rec: 07/20/18 09:21 YBZ3652 ICU-C15) Document 07/20/18 13:00 PXK5550 (Rec: 07/20/18 13:27 HYJ6079 ICU-C15) Document 07/20/18 17:06 KLK0096 (Rec: 07/20/18 17:06 HYU2353 ICU-C15) Document 07/21/18 08:55 NAB3258 (Rec: 07/21/18 08:55 GSL9195 ICU-M27) Document 07/21/18 12:37 YBK7470 (Rec: 07/21/18 12:37 TFY8894 ICU-C12) Document 07/21/18 17:01 HKI1011 (Rec: 07/21/18 17:01 NBM9449 ICU-C12) Document 07/22/18 09:00 AFD3763 (Rec: 07/22/18 09:11 RGX3951 ICU-M27) Document 07/22/18 13:20 AEP8094 (Rec: 07/22/18 13:20 ITJ6566 ICU-C12) Document 07/22/18 17:04 QJY3937 (Rec: 07/22/18 17:04 FKU4210 ICU-C12) Intake and Output Start: 07/17/18 15: 30 Freq: Status: Active Protocol: Created 07/17/18 15:30 System (Rec: 07/17/18 15:30 System EDRM-C04) Intake and Output Start: 07/17/18 17: 39 Freq: Q1HR Status: Active Protocol: Created 07/17/18 17:39 System (Rec: 07/17/18 17:39 System ICU-C20) Document 07/17/18 18:00 NMJ1682 (Rec: 07/17/18 18:09 ITU3118 ICU-C12) Document 07/17/18 20:00 ZLI3147 (Rec: 07/17/18 21:35 QNU5562 ICU-C12) Document 07/17/18 21:00 VGA1921 (Rec: 07/17/18 22:27 WEN2999 ICU-M27) Document 07/17/18 22:00 EGQ2470 (Rec: 07/18/18 00:01 RVR4385 ICU-C12) Document 07/17/18 23:00 AVG1811 (Rec: 07/18/18 00:01 JSY6342 ICU-C12) Document 07/18/18 00:00 MBV5887 (Rec: 07/18/18 02:55 GLD2379 ICU-C12) Document 07/18/18 01:00 GVX5581 (Rec: 07/18/18 02:55 ZQB6708 ICU-C12) Document 07/18/18 02:00 BYW3975 (Rec: 07/18/18 02:55 OGR0096 ICU-C12) Document 07/18/18 03:00 OAZ0800 (Rec: 07/18/18 03:16 BSE7316 ICU-C12) Document 07/18/18 04:00 OVS4858 (Rec: 07/18/18 05:15 HSW1468 ICU-M27) Document 07/18/18 06:30 BBI3159 (Rec: 07/18/18 06:30 ZLN2355 ICU-M27) Document 07/18/18 07:00 XYC9599 (Rec: 07/18/18 07:22 ZYT8222 ICU-M27) Document 07/18/18 08:00 FHP3669 (Rec: 07/18/18 09:14 OBD0800 ICU-M27) Document 07/18/18 09:00 GIS0676 (Rec: 07/18/18 09:15 ATN4551 ICU-M27) Document 07/18/18 10:00 MKL5182 (Rec: 07/18/18 10:08 OKB9819 ICU-C15) Document 07/18/18 11:00 NJR7442 (Rec: 07/18/18 11:07 LHI9712 ICU-M27) Document 07/18/18 12:00 JMK7411 (Rec: 07/18/18 12:25 VKD1205 ICU-C15) Document 07/18/18 13:00 FZG2232 (Rec: 07/18/18 13:24 PQT2695 ICU-C15) Document 07/18/18 14:00 XJX4263 (Rec: 07/18/18 14:14 PCS1240 ICU-C15) Document 07/18/18 15:00 JDZ8924 (Rec: 07/18/18 15:13 YMN0969 ICU-C15) Document 07/18/18 16:00 AGU9732 (Rec: 07/18/18 17:41 WTU9982 ICU-C15) Document 07/18/18 17:00 WQU4347 (Rec: 07/18/18 17:58 VHP0986 ICU-C15) Document 07/18/18 18:00 NOM3360 (Rec: 07/18/18 18:15 DAH9397 ICU-C15) Document 07/18/18 21:55 HCM6618 (Rec: 07/18/18 21:55 CGJ5127 ICU-M27) Document 07/18/18 23:00 TZL1330 (Rec: 07/18/18 23:31 AKI5559 ICU-C15) Document 07/18/18 23:59 NRZ6467 (Rec: 07/18/18 23:59 UFX7608 ICU-M27) Document 07/19/18 02:58 NFT9439 (Rec: 07/19/18 02:58 RKZ2542 ICU-C14) Document 07/19/18 03:00 RKH9170 (Rec: 07/19/18 03:15 VMV4088 ICU-M27) Document 07/19/18 04:00 BRN0913 (Rec: 07/19/18 05:28 AHL5374 ICU-C15) Document 07/19/18 05:00 QQE6742 (Rec: 07/19/18 05:32 ZAF9843 ICU-C15) Document 07/19/18 06:00 GNB8502 (Rec: 07/19/18 06:35 YPU1866 ICU-C15) Document 07/19/18 07:00 ONE9098 (Rec: 07/19/18 09:03 ZTS3841 ICU-M27) Document 07/19/18 08:00 XMU1732 (Rec: 07/19/18 09:03 CAI8108 ICU-M27) Document 07/19/18 09:00 UDI7049 (Rec: 07/19/18 09:03 TCR6594 ICU-M27) Document 07/19/18 10:00 SED9505 (Rec: 07/19/18 10:41 PDU4065 ICU-M27) Document 07/19/18 10:45 EOM7359 (Rec: 07/19/18 10:45 GAK5735 ICU-M27) Document 07/19/18 11:00 HYQ5281 (Rec: 07/19/18 11:04 HLT8239 ICU-M27) Document 07/19/18 12:00 GMB1450 (Rec: 07/19/18 12:12 XWM4509 ICU-M27) Document 07/19/18 12:59 TRC7637 (Rec: 07/19/18 12:59 NAZ3078 ICU-L03) Document 07/19/18 13:56 EDH3111 (Rec: 07/19/18 13:57 NMV3157 ICU-L03) Document 07/19/18 14:54 RVM7246 (Rec: 07/19/18 14:54 CFQ1520 ICU-L03) Document 07/19/18 16:00 PQL6642 (Rec: 07/19/18 16:42 FVH8487 ICU-C15) Document 07/19/18 17:00 KUX8825 (Rec: 07/19/18 18:31 ZZG6460 ICU-C15) Document 07/19/18 18:00 SUO9121 (Rec: 07/19/18 18:32 PEV4864 ICU-C15) Document 07/19/18 19:00 AIA5298 (Rec: 07/19/18 19:16 UOF1271 ICU-M27) Document 07/19/18 21:00 GXH3689 (Rec: 07/19/18 21:27 CRJ5616 ISDEFL-M03 ) Document 07/19/18 22:00 QUS2606 (Rec: 07/19/18 22:13 DLC6923 ICU-L03) Document 07/19/18 22:54 QXM7162 (Rec: 07/19/18 22:54 NRY6502 ICU-M27) Document 07/20/18 00:00 WVH8758 (Rec: 07/20/18 01:34 KXJ7597 ICU-L03) Document 07/20/18 01:00 HNC5459 (Rec: 07/20/18 01:34 QSB5540 ICU-L03) Document 07/20/18 02:00 FHU3900 (Rec: 07/20/18 02:07 FTB2766 ICU-L03) Document 07/20/18 03:00 MJS1130 (Rec: 07/20/18 04:37 VMS4159 ICU-L03) Document 07/20/18 04:00 YDY0047 (Rec: 07/20/18 04:37 IDI4384 ICU-L03) Document 07/20/18 05:00 DST5912 (Rec: 07/20/18 05:12 BUD0230 ICU-L03) Document 07/20/18 06:00 THS7120 (Rec: 07/20/18 06:07 VVA6012 ICU-M27) Document 07/20/18 07:00 TOM6053 (Rec: 07/20/18 07:32 PIB0254 ICU-C15) Document 07/20/18 08:00 YDH2733 (Rec: 07/20/18 09:00 RAU1899 ICU-C15) Document 07/20/18 09:00 AMM0938 (Rec: 07/20/18 09:19 ZFH0729 ICU-C15) Document 07/20/18 10:00 XED5597 (Rec: 07/20/18 10:46 BJZ9715 ICU-C15) Document 07/20/18 10:47 QXI9017 (Rec: 07/20/18 10:47 RZR7205 ICU-C15) Document 07/20/18 12:17 VKW6075 (Rec: 07/20/18 12:17 OAZ4086 ICU-C15) Document 07/20/18 13:00 TBA4749 (Rec: 07/20/18 13:27 KND8683 ICU-C15) Document 07/20/18 14:16 EDD9741 (Rec: 07/20/18 14:16 JEP2595 ICU-M27) Document 07/20/18 15:00 LEB6323 (Rec: 07/20/18 15:03 JKQ1755 ICU-M27) Document 07/20/18 16:14 SDJ8640 (Rec: 07/20/18 16:14 SSQ7100 ICU-M27) Document 07/20/18 17:07 SAI3569 (Rec: 07/20/18 17:07 NAG4458 ICU-C15) Document 07/20/18 18:20 ECM3910 (Rec: 07/20/18 18:20 NCM5513 ISDEMO-M03 ) Document 07/20/18 19:00 KJQ8110 (Rec: 07/20/18 21:34 TRY4193 ICU-C15) Document 07/20/18 21:00 BMP7826 (Rec: 07/20/18 21:35 GOE4888 ICU-C15) Document 07/20/18 22:00 FXJ5312 (Rec: 07/20/18 22:12 NWS7311 ICU-C15) Document 07/20/18 23:00 ITU4233 (Rec: 07/20/18 23:13 XKE4358 ICU-C15) Document 07/21/18 01:00 XPV9882 (Rec: 07/21/18 01:35 IAA9610 ICU-C15) Document 07/21/18 02:00 SNW6333 (Rec: 07/21/18 02:14 XPH0537 ICU-C15) Document 07/21/18 03:00 XYG5268 (Rec: 07/21/18 03:44 KMP5721 ICU-C25) Document 07/21/18 05:00 NJN7331 (Rec: 07/21/18 05:05 YBR5608 ICU-C15) Document 07/21/18 06:00 MUP1596 (Rec: 07/21/18 06:23 UEY4136 ICU-C15) Document 07/21/18 07:00 PZW1558 (Rec: 07/21/18 07:20 DLN9533 ICU-C12) Document 07/21/18 08:11 DYF1233 (Rec: 07/21/18 08:11 FWM4828 ICU-M27) Document 07/21/18 08:54 LQB1716 (Rec: 07/21/18 08:55 NGE8878 ICU-M27) Document 07/21/18 10:00 OEM4903 (Rec: 07/21/18 10:03 OAI4481 ICU-C12) Document 07/21/18 10:59 BWN2313 (Rec: 07/21/18 10:59 OIN3340 ICU-C12) Document 07/21/18 12:33 RRW6118 (Rec: 07/21/18 12:33 NDY8984 ICU-C12) Document 07/21/18 13:06 CZV8494 (Rec: 07/21/18 13:06 EYV9097 ICU-C12) Document 07/21/18 14:00 ZOY5561 (Rec: 07/21/18 14:06 BBP1762 ICU-C12) Document 07/21/18 16:00 UOF8851 (Rec: 07/21/18 16:01 ARA5241 ICU-C12) Document 07/21/18 16:54 KGE1563 (Rec: 07/21/18 16:54 KXY4523 ICU-C12) Document 07/21/18 18:00 FQH8496 (Rec: 07/21/18 18:02 PRM4695 ICU-C12) Document 07/21/18 19:00 KIM0449 (Rec: 07/21/18 19:56 ZWN7274 ICU-C15) Document 07/21/18 20:00 FDR2655 (Rec: 07/21/18 21:16 KGP3521 ICU-C15) Document 07/21/18 21:00 DFQ6901 (Rec: 07/21/18 21:16 WGI8168 ICU-C15) Document 07/21/18 22:00 VSH8883 (Rec: 07/21/18 22:01 RKM1212 ICU-C15) Document 07/21/18 23:00 HCM1256 (Rec: 07/22/18 00:28 IDL6013 ICU-C15) Document 07/22/18 00:00 SVS1268 (Rec: 07/22/18 00:28 SPJ5833 ICU-C15) Document 07/22/18 01:00 EHO4413 (Rec: 07/22/18 01:29 AKA7852 ICU-C15) Document 07/22/18 02:00 NYW1253 (Rec: 07/22/18 03:53 GOM5257 ICU-C15) Document 07/22/18 03:00 VZP0162 (Rec: 07/22/18 03:54 QSG9416 ICU-C15) Document 07/22/18 04:00 OXV1453 (Rec: 07/22/18 05:40 LND1787 ICU-M27) Document 07/22/18 05:00 QQO2197 (Rec: 07/22/18 05:40 CTM0954 ICU-M27) Document 07/22/18 05:39 VUA8421 (Rec: 07/22/18 05:40 KIX1070 ICU-M27) Document 07/22/18 07:56 RNV1883 (Rec: 07/22/18 07:57 AED6393 ICU-M27) Document 07/22/18 09:00 HMH3994 (Rec: 07/22/18 09:11 KWB2585 ICU-M27) Document 07/22/18 09:58 CWZ0245 (Rec: 07/22/18 09:58 IPF7667 ICU-M27) Document 07/22/18 11:00 MHC3528 (Rec: 07/22/18 11:06 LES3798 ICU-C12) Document 07/22/18 12:35 MVP7419 (Rec: 07/22/18 12:35 VCR5277 ICU-C12) Document 07/22/18 13:31 SRZ3883 (Rec: 07/22/18 13:31 GEK8591 ICU-C12) Document 07/22/18 14:20 GNR4960 (Rec: 07/22/18 14:20 NZV1741 ICU-M27) Document 07/22/18 15:05 FDY9362 (Rec: 07/22/18 15:05 ZOK7443 ICU-C12) Document 07/22/18 15:58 NAN7099 (Rec: 07/22/18 15:58 OZH6509 ICU-C12) Document 07/22/18 17:02 WPY7821 (Rec: 07/22/18 17:03 VYT6517 ICU-C12) Document 07/22/18 18:14 HVG3087 (Rec: 07/22/18 18:15 MRV9550 ICU-C12) Document 07/22/18 19:00 KYC5104 (Rec: 07/22/18 20:14 HYT6561 ICU-C15) Document 07/22/18 20:00 ONO2943 (Rec: 07/22/18 20:14 OGT7098 ICU-C15) Document 07/22/18 21:00 VDB3462 (Rec: 07/22/18 21:06 LBM2186 ICU-C15) Document 07/22/18 22:00 DYH0286 (Rec: 07/22/18 22:16 OLD7514 ICU-C15) Document 07/22/18 23:00 PFX7582 (Rec: 07/22/18 23:54 VKL8808 ICU-C15) Document 07/22/18 23:54 KHF3964 (Rec: 07/22/18 23:54 RHA1173 ICU-C15) Document 07/23/18 01:00 AWS2552 (Rec: 07/23/18 03:26 KKT0382 ICU-M27) Document 07/23/18 02:00 VXW4688 (Rec: 07/23/18 03:26 OPC9290 ICU-M27) Document 07/23/18 03:00 HKN7016 (Rec: 07/23/18 03:26 WQP5685 ICU-M27) Document 07/23/18 04:00 LBK3038 (Rec: 07/23/18 05:11 FQH8058 ICU-C15) Document 07/23/18 05:00 LYO8502 (Rec: 07/23/18 05:11 JED5436 ICU-C15) Document 07/23/18 06:00 ZXT8716 (Rec: 07/23/18 06:30 JEK4404 ICU-C15) Labs: Laboratory Results - last 24 hr 07/23/18 07/23/18 05:33 05:33 WBC 9.5 RBC 3.04 L Hgb 9.4 L Hct 28 L MCV 93 MCH 31 MCHC 33 RDW 15 Plt Count 192 MPV 8.6 Sodium 142 Potassium 3.4 L Chloride 112 H Carbon Dioxide 22 Anion Gap 8 BUN 59 H Creatinine 1.63 H Est GFR ( Amer) 36.8 Est GFR (Non-Af Amer) 30.4 BUN/Creatinine Ratio 36.2 H Glucose 139 H Calcium 8.4 L Phosphorus 3.2 Magnesium 2.5 Total Bilirubin 0.80 AST 75 H ALT 37 Alkaline Phosphatase 198 H Total Protein 5.6 L Albumin 3.0 L Globulin 2.6 Albumin/Globulin Ratio 1.2 Studies: 07/21 CXR: bilateral infiltrates with progression in RUL 07/20 CXR: Improvement in pulmonary edema as compared to 07/19 film 07/19 CXR: findings suggestive of pneumonia with 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 increased density in right paratracheal region. 07/18 EEG: mild-moderate encephalopathy due to sedation. No epileptiform discharges. 07/18 CXR: cardiogenic pulmonary edema with possible pneumonia in LLL. Unchanged from prior film 07/17 CT abd/pelvis: 1. Multifocal pneumonia 2. No etiology for elevated LFTS 3. Nonspecific left perirenal/armani-adrenal stranding without other findings to suggest pyelonephritis 07/17 CT brain: 1. No acute intracranial pathoogy 2. Mild chronic small vessel ischemic disease 07/17 CXR: LLL infiltrate (my read) Nutrition: TF @ 30ml/hr Glucerna 1.2, goal rate 50 ml/hr Impression: 77 yo F with 3 day history of shortness of breath, chest pain, nausea and vomiting after eating at [employer]. Initially seen in ED on 07/15 and workup felt consistent with acute viral infection. Returns to ED on 07/17 for worsening shortness of breath. CXR shows new LLL, WBC elevated. Admitted with multifocal community acquired pneumonia and septic shock. LFTs elevated on admission but improving. Now with LANIE on CKD. Plan: Cardiovascular: (1) Septic shock, improving; (2) Pacemaker in situ; (3) NSTEMI , demand mediated; (4) Chronic Benign essential HTN -- HR 69-75 -- SBP 89-187 -- Telemetry -- Lipid panel Trigluycerides 161, borderline high cholesterol 60 LDL 17 HDL 10.7, low -- TTE, 07/19: Hyperdynamic LVEF -- Vasopressors Levophed weaned off -- ASA -- atorvastatin -- resume home atenolol -- PRN hydralazine for goal SBP < 160 -- scheduled Lasix for diuresis. Home meds: Warfarin, Atenolol, Atorvastatin Pulmonary: (1) Community acquired multifocal pneumonia, (2) acute hypoxic respiratory failure requiring intubation; (3) hx of bronchitis -- RR 16-28 -- sats 92-95% on Vent -- daily sedation vacation and spontaneous breathing trial -- CXR 07/21 mild progression in RUL, imrprovement in L lobe -- PRN Albuterol and Atrovent inhalers -- Broad spectrum abx for PNA coverage Home meds: None Gastrointestinal: (1) Acute nausea and vomiting, resolved; (2) Hyperbilirubinemia, improving; (3) hx of constipation/diarrhea and nausea over the past 9+ months -- LFTs, follow trend Tbili 0.8 ALK 198 from 184 AST 75 from 77 ALT 37 -- Hepatitis panel negative -- US gall bladder: 8mm wall, but no surrounding fat stranding or pericholecystic fluid, plan for HIDA electively when clinically improved to assess for chronic condition, family updated on need for outpatient followup with PCP -- diet: TF, advancing to goal -- bowel regimen: None -- ulcer prophylaxis: Protonix -- Zofran as needed for vomiting -- GI consult appreciated Home meds: Omeprazole, Zofran Endocrine: (1) hx of thyroid cancer s/p thyroidectomy and radiation; (2) Hyperglycemia -- monitor BGs -- SSI -- Synthroid Home meds: Synthroid Renal: (1) chronic stress incontinence; (2) LANIE on Chronic kidney disease; (3) Hyponatremia, resolved; (4) Hypocalcemia, resolving; (5) Oliguria, improving -- UOP: 91 ml/hr -- I/O: 1604/2185 -- Cr 1.63 from 1.71 -- Lytes Na 142 from 141 CL 112 from 112, FWF increased K 3.5 Ca 8.4, corrected for albumin is 9.2 Mag 2.5 Phos 3.2 -- IVF: HLIVF -- scheduled Lasix for diuresis Home meds: None Infectious disease: (1) Multifocal bilateral community acquired pneumonia; (2) Sepsis; (3) Possible cholecystitis -- Tmax 99.3F -- WBC 9.5 from 13.1 -- Micro 07/22 sputum no growth to date 07/18 sputum Negative 07/17 Flu screen Negative Urinalysis Negative Urine Negative blood No growth to date 07/15 Flu screen negative -- ABX x 7 day course, ends tomorrow Rocephin Azithromycin -- LFTs currently improving and vasopressor need decreasing, if this changes will consider cholecystostomy tube placement Home meds: PRN Valacyclovir Neurologic: (1) Acute metabolic encephalopathy; (2) chronic back and shoulder pain; (3) chronic bilateral leg neuropathy; (4) chronic headaches; (5) Quesiton of seizure activity determined to NOT be seizures -- Precedex gtt for sedation -- PRN Fentanyl for pain control -- PRN Tylenol for fevers -- Neurology consult appreciated -- Lexapro Home meds: Lexapro, [place] Hematological: No acute issues -- Hgb 9.4 from 10.3 -- Plt 192 from 186 -- Coags INR 1.02 -- DVT prophylaxis: SQ Heparin -- ASA Home meds: Warfarin Metabolic: (1) Lactic acidosis, resolved Home meds: None Other: Home meds: Vitamin D, MVI Deep vein thrombosis prophylaxis: SQ Heparin Dietary: Protonix Condition: critical Prognosis: guarded Code status: full Disposition: continue ICU care Cumulative time spent in the care of this patient (excluding any procedure time) : at least 40 minutes. Patient care included clinical interview (with patient and/or family), bedside exam of the patient, review of labs, x-rays, and other ancillary data, coordination of (respiratory, nursing care, review of patient's records, discussion regarding patients management with involved consultants, primary physician, pharmacists, and other healthcare personnel (dietary, case management , physical/occupational therapy etc.) Critical Care Time: 40
[2018-07-23] MEDS: Pantoprazole IV* 40 MG IV SCH (08:29)
[2018-07-23] MEDS: Furosemide IV* 10 MG/ML VIAL (40 MG) IV SCH (08:32)
[2018-07-23] MEDS: cefTRIAXone(*) 1 GM in NS 0.9% 50 ML* 50 ML IVPB SCH (08:40)
[2018-07-23] MEDS: Aspirin 81 mg CHEW TAB* 81 MG TAB.CHEW PO SCH (08:42)
[2018-07-23] MEDS: Heparin VIAL(*) 5000 UNITS/ML VIAL (FIVE THOUSAND) SUBCUT SCH ×2 (08:42→21:20)
[2018-07-23] MEDS: Citalopram TAB* 20 MG PO SCH (08:42)
[2018-07-23] MEDS: Acetaminophen ADULT LIQ* 650 MG/20.3 ML UDC PO PRN ×2 (08:47→21:20)
[2018-07-23] MEDS: Atenolol TAB* 25 MG PO SCH ×2 (08:47→21:20)
[2018-07-23] MEDS: Azithromycin IV(*) 500 MG in NS 0.9% 250 ML* 250 ML IVPB SCH (10:02)
[2018-07-23] MEDS ORDERED: Albumin Human 25%* 25 GM/100 ML BTL IV ONE (13:40)
[2018-07-23] MEDS ORDERED: Furosemide IV* 10 MG/ML VIAL (40 MG) IV SLOW PU ONE (17:12)
[2018-07-23] MEDS: Atorvastatin* 80 MG TAB PO SCH (21:19)
[2018-07-24] MEDS: Chlorhexidine MOUTHWASH 0.12%* 15 ML UDC TOPICAL SCH ×6 (01:02→21:03)
[2018-07-24] MEDS: Albuterol/Ipratropium NEB.SOL* Albuterol 2.5 MG/Ipratropium 0.5 MG 3 ML INH SCH ×4 (01:15→19:49)
[2018-07-24] MEDS: Dexmedetomidine* 400 MCG in NS 0.9% 100 ML* 96 ML IVPB SCH ×2 (03:26→21:07)
[2018-07-24] MEDS: Levothyroxine TAB* 150 MCG TAB PO SCH (05:51)
[2018-07-24 06:20] LABS: Hematocrit 27 % (35-47); Hemoglobin 9.3 g/dl (12.0-16.0); Mean Corpuscular HGB Conc 34 g/dl (31-36); Mean Corpuscular Hemoglobin 32 pg (27-31); Mean Corpuscular Volume 93 fL (80-97); Mean Platelet Volume 8.7 fL (7.4-10.4); Platelet Count 215 10^3/ul (150-450); Red Blood Count 2.96 10^6/ul (4.00-5.40); Red Cell Distribution Width 15 % (10.5-15)
[2018-07-24 06:41] LABS: Albumin 2.8 g/dL (3.2-5.2); BUN/Creatinine Ratio 47.3 (8-20); Calcium 8.9 mg/dL (8.6-10.3); EGFR African American 41.8 (>60); EGFR Non-African American 34.6 (>60); Globulin 2.9 g/dL (2-4); Magnesium 2.4 mg/dL (1.9-2.7); Phosphorus 3.8 mg/dL (2.5-5.0); Potassium 3.1 mmol/L (3.5-5.0); Total Bilirubin 0.8 mg/dL (0.2-1.0); Total Protein 5.7 g/dL (6.4-8.9)
[2018-07-24] MEDS: Citalopram TAB* 20 MG PO SCH (08:27)
[2018-07-24] MEDS: Pantoprazole IV* 40 MG IV SCH (08:28)
[2018-07-24] MEDS: Aspirin 81 mg CHEW TAB* 81 MG TAB.CHEW PO SCH (08:28)
[2018-07-24] MEDS: Atenolol TAB* 25 MG PO SCH ×2 (08:28→21:04)
[2018-07-24] MEDS: Heparin VIAL(*) 5000 UNITS/ML VIAL (FIVE THOUSAND) SUBCUT SCH ×2 (08:29→21:04)
[2018-07-24] MEDS: Furosemide IV* 10 MG/ML VIAL (40 MG) IV SCH (08:30)
[2018-07-24] MEDS ORDERED: Potassium Chloride LIQUID* 20 MEQ PACKET PO ONE (11:07)
[2018-07-24] MEDS: hydrALAZINE IV* 20 MG/ML VIAL IV SLOW PU PRN (11:07)
--- NOTE | 2018-07-24 11:17 | PN ---
Date of Service: 07/24/18 - 8 Critical Care Services: 77 yo F with PMH including thyroid cancer s/p resection and radiation, chronic pain, chronic (9+mo hx) of nausea, constipation and diarrhea was seen recently in the ED on 07/15 with complaints of nausea, vomiting and chest pain. At that time WBC was normal, flu screen was negative anc CXR did not show an acute process. EKG demonstrated only an AV dual-paced rhythm and troponin was negative. She was dicharged home. She returns to the ED today with complaints of ongoing nausea, vomiting and shortness of breath. CXR demonstrates new LLL pneumonia and elevated WBC. Sepsis markers positive. Also found to have hyperbilirubinemia. Admitted to ICU for further workup and care Shortly after arrival to ICU she developed worsened hypoxia and became unresponsive. She was intubated for acute hypoxic respiratory failure and airway protection. A central line was placed for medication administration and lab draws. Repeat lactic acid bumped up to 3.0. Bolused an additional 2L NL with subsequent improvement to 2.[address] of head and abdomen were negative for acute pathology aside from known pneumonia and some mild nonspecific armani-adrenal fat stranding. She had a brief episode of lower extremity extention with twitching which resolved spontaneously Family updated regarding clinical course and plan of care 07/18: Overnight she required the initiation of Levophed to maintain MAPs > 65. This AM she had a second episode of lower extremity extention with twitching and periorbital twitching. Given Ativan and Keppra load and EEG ordered. Evaluated by Neurology, once sedation off patient following commands during episodes and EEG negative thus not seizure activity. No need for ongoing antiepileptics. GI consulted for elevated LFTs and findings of thickened gallbladder wall. Plan of possible ERCP on 07/19. Weaned off pressors by afternoon, but restarted in evening to keep MAPs > 65 07/19: Low urine output overnight. Bolused 1L NS. LFTs improved. Seen by GI, no need for intervention at this time. UOP decreased, BNP elevated, Lasix x 1 given. 07/20: Given Lasix x 2 for low urine output and volume overload. On minimal pressors (1-3 mcg/min Levophed). TF started. 07/21: Tolerated spontaneous breathing trial x 12 hours. Slow to awaken during sedation vacation. Vasopressors weaned off. 07/22: Tolerated spontaneous breathing trial during day. Beginning to arouse. Given albumin for oliguria with improvement 07/23: Began auto-diuresing overnight. Following commands. Tolerating PS throughout day. Vital Signs: Temp Pulse Resp BP SpO2 FiO2 100.4 F 70 26 179/80 94 40 07/24/18 10:30 07/24/18 10:30 07/24/18 10:00 07/24/18 10:30 07/24/18 10:30 07/24 08:00 Physical Exam: Gen: resting comfortably HEENT: ETT in place Lungs: coarse bilaterally Cardiac: RRR Abdomen: soft, NTND Extremities: warm, dry, edmatous Neuro: purposeful. following commands Fluid Balance (Past 24 Hours): I= O= Net Intake & Output 07/22/18 07/23/18 07/24/18 07/25/18 06:59 06:59 06:59 06:59 Intake Total 1332 1604.0 2940.5 60 Output Total 1821 2185 2019 374 Balance -489 -581.0 921.5 -314 Weight 172 lb 13.595 oz 169 lb 8.568 oz 170 lb 3.2 oz Intake: IV Fluids 721 210 83.5 Albumin 100 40 Azithromycin 276 20 CEFTRIAXONE 55 50 Calcium Gluconate 40 NS 390 43.5 IVPB 110 365 428 Albumin 100 Azithromycin 255 270 CEFTRIAXONE 50 50 58 Calcium Gluconate 60 60 Medicated IV 57 110.0 207.0 Precedex 110.0 207.0 propofol 57 Tube Feeding 782 760 7168 Tube Feeding Flush Amount 90 150 581 NG Tube Irrigate Amount 90 60 Output: Walsh 1751 1660 1894 374 Tube Feeding Residual 70 525 125 Amount Wasted Other: Estimated Stool Amount Large ADLs: Meal Record Start: 07/17/18 17: 39 Freq: ,,18 Status: Active Protocol: Created 07/17/18 17:39 System (Rec: 07/17/18 17:39 System ICU-C20) Document 07/17/18 18:00 IED7389 (Rec: 07/17/18 18:09 HWT8245 ICU-C12) Document 07/18/18 09:00 BPO4557 (Rec: 07/18/18 10:08 ZTV0033 ICU-C15) Document 07/18/18 13:00 UEM8813 (Rec: 07/18/18 13:24 TZL8341 ICU-C15) Document 07/18/18 18:00 PAP0304 (Rec: 07/18/18 18:15 CIH1093 ICU-C15) Document 07/19/18 09:00 QBH1679 (Rec: 07/19/18 09:05 VQU5684 ICU-M27) Document 07/19/18 12:57 ONY8032 (Rec: 07/19/18 12:58 DFX2882 ICU-L03) Document 07/19/18 18:00 EFL8856 (Rec: 07/19/18 18:32 CMT4429 ICU-C15) Document 07/20/18 09:00 XRV0791 (Rec: 07/20/18 09:21 JMK9511 ICU-C15) Document 07/20/18 13:00 TEY7650 (Rec: 07/20/18 13:27 DDZ1717 ICU-C15) Document 07/20/18 17:06 UVB4494 (Rec: 07/20/18 17:06 AWT0356 ICU-C15) Document 07/21/18 08:55 GQK4427 (Rec: 07/21/18 08:55 AVE6615 ICU-M27) Document 07/21/18 12:37 DLA1520 (Rec: 07/21/18 12:37 LBU3556 ICU-C12) Document 07/21/18 17:01 SMI7135 (Rec: 07/21/18 17:01 ZNO6648 ICU-C12) Document 07/22/18 09:00 LMN4743 (Rec: 07/22/18 09:11 VZT7258 ICU-M27) Document 07/22/18 13:20 AWG9151 (Rec: 07/22/18 13:20 WAH4393 ICU-C12) Document 07/22/18 17:04 DXX1376 (Rec: 07/22/18 17:04 TTK0224 ICU-C12) Document 07/23/18 09:00 MBL5214 (Rec: 07/23/18 09:39 LHI4386 ICU-C12) Document 07/23/18 13:00 NGP7794 (Rec: 07/23/18 13:43 ZPY9476 ICU-C12) Document 07/24/18 09:00 LXF1525 (Rec: 07/24/18 09:12 YRY0298 ICU-C12) Intake and Output Start: 07/17/18 15: 30 Freq: Status: Active Protocol: Created 07/17/18 15:30 System (Rec: 07/17/18 15:30 System EDRM-C04) Intake and Output Start: 07/17/18 17: 39 Freq: Q1HR Status: Active Protocol: Created 07/17/18 17:39 System (Rec: 07/17/18 17:39 System ICU-C20) Document 07/17/18 18:00 RES0936 (Rec: 07/17/18 18:09 WLL7369 ICU-C12) Document 07/17/18 20:00 QLQ2540 (Rec: 07/17/18 21:35 BSH4305 ICU-C12) Document 07/17/18 21:00 DSP1214 (Rec: 07/17/18 22:27 VRO9239 ICU-M27) Document 07/17/18 22:00 YIF3548 (Rec: 07/18/18 00:01 LQC5500 ICU-C12) Document 07/17/18 23:00 QNW0439 (Rec: 07/18/18 00:01 EXW7423 ICU-C12) Document 07/18/18 00:00 SIS1641 (Rec: 07/18/18 02:55 OQT9520 ICU-C12) Document 07/18/18 01:00 JMA0090 (Rec: 07/18/18 02:55 DML8823 ICU-C12) Document 07/18/18 02:00 ECQ4856 (Rec: 07/18/18 02:55 HXH4250 ICU-C12) Document 07/18/18 03:00 ORP7543 (Rec: 07/18/18 03:16 LXE4605 ICU-C12) Document 07/18/18 04:00 ESP5009 (Rec: 07/18/18 05:15 PTK2817 ICU-M27) Document 07/18/18 06:30 WHG7330 (Rec: 07/18/18 06:30 PLH4092 ICU-M27) Document 07/18/18 07:00 NIJ7949 (Rec: 07/18/18 07:22 ZXI8119 ICU-M27) Document 07/18/18 08:00 TKO7044 (Rec: 07/18/18 09:14 MNK9477 ICU-M27) Document 07/18/18 09:00 LZH9109 (Rec: 07/18/18 09:15 CVU4406 ICU-M27) Document 07/18/18 10:00 HAU8892 (Rec: 07/18/18 10:08 DJC0664 ICU-C15) Document 07/18/18 11:00 UKC4264 (Rec: 07/18/18 11:07 BOL9026 ICU-M27) Document 07/18/18 12:00 LGT6022 (Rec: 07/18/18 12:25 FQK7866 ICU-C15) Document 07/18/18 13:00 TSM1349 (Rec: 07/18/18 13:24 QET5123 ICU-C15) Document 07/18/18 14:00 DLA6374 (Rec: 07/18/18 14:14 KBY0396 ICU-C15) Document 07/18/18 15:00 WZZ0506 (Rec: 07/18/18 15:13 XUQ0909 ICU-C15) Document 07/18/18 16:00 TLQ7017 (Rec: 07/18/18 17:41 ZRG2952 ICU-C15) Document 07/18/18 17:00 KHQ2535 (Rec: 07/18/18 17:58 ELA8822 ICU-C15) Document 07/18/18 18:00 RFU0212 (Rec: 07/18/18 18:15 EUF9437 ICU-C15) Document 07/18/18 21:55 SQL1435 (Rec: 07/18/18 21:55 YEQ8857 ICU-M27) Document 07/18/18 23:00 AWC5567 (Rec: 07/18/18 23:31 WCY9711 ICU-C15) Document 07/18/18 23:59 EOY6070 (Rec: 07/18/18 23:59 RIW4570 ICU-M27) Document 07/19/18 02:58 WJP6597 (Rec: 07/19/18 02:58 CZD4846 ICU-C14) Document 07/19/18 03:00 MBU0736 (Rec: 07/19/18 03:15 KDQ2455 ICU-M27) Document 07/19/18 04:00 TQQ3688 (Rec: 07/19/18 05:28 KJN1324 ICU-C15) Document 07/19/18 05:00 SDP2314 (Rec: 07/19/18 05:32 BRV7241 ICU-C15) Document 07/19/18 06:00 INC2186 (Rec: 07/19/18 06:35 QKD3084 ICU-C15) Document 07/19/18 07:00 KLM8028 (Rec: 07/19/18 09:03 GWM9516 ICU-M27) Document 07/19/18 08:00 UBV3735 (Rec: 07/19/18 09:03 IBC9636 ICU-M27) Document 07/19/18 09:00 YXR5048 (Rec: 07/19/18 09:03 FVQ7949 ICU-M27) Document 07/19/18 10:00 CUL7822 (Rec: 07/19/18 10:41 TCD4353 ICU-M27) Document 07/19/18 10:45 YFP1703 (Rec: 07/19/18 10:45 FFL8390 ICU-M27) Document 07/19/18 11:00 HIH0294 (Rec: 07/19/18 11:04 ZGM4760 ICU-M27) Document 07/19/18 12:00 PKF6056 (Rec: 07/19/18 12:12 OWD1893 ICU-M27) Document 07/19/18 12:59 DBQ1406 (Rec: 07/19/18 12:59 ORC3000 ICU-L03) Document 07/19/18 13:56 XFI3524 (Rec: 07/19/18 13:57 XQS5288 ICU-L03) Document 07/19/18 14:54 RBV2059 (Rec: 07/19/18 14:54 GFC1010 ICU-L03) Document 07/19/18 16:00 NXE1279 (Rec: 07/19/18 16:42 QTR2818 ICU-C15) Document 07/19/18 17:00 EZF4156 (Rec: 07/19/18 18:31 GYR4730 ICU-C15) Document 07/19/18 18:00 MPM6057 (Rec: 07/19/18 18:32 CKF1608 ICU-C15) Document 07/19/18 19:00 QOJ2818 (Rec: 07/19/18 19:16 CJL9073 ICU-M27) Document 07/19/18 21:00 JCA1327 (Rec: 07/19/18 21:27 MZP9349 ISDEMO-M03 ) Document 07/19/18 22:00 ACZ9455 (Rec: 07/19/18 22:13 HUJ5799 ICU-L03) Document 07/19/18 22:54 OIJ0408 (Rec: 07/19/18 22:54 FTO5707 ICU-M27) Document 07/20/18 00:00 ZMI1231 (Rec: 07/20/18 01:34 PSH3250 ICU-L03) Document 07/20/18 01:00 DNY4067 (Rec: 07/20/18 01:34 MTG9017 ICU-L03) Document 07/20/18 02:00 XWV5955 (Rec: 07/20/18 02:07 CAQ2509 ICU-L03) Document 07/20/18 03:00 VND5469 (Rec: 07/20/18 04:37 EVU2382 ICU-L03) Document 07/20/18 04:00 CZP8321 (Rec: 07/20/18 04:37 RZW4026 ICU-L03) Document 07/20/18 05:00 TRW2499 (Rec: 07/20/18 05:12 BYC2043 ICU-L03) Document 07/20/18 06:00 ZCP7079 (Rec: 07/20/18 06:07 MSY7536 ICU-M27) Document 07/20/18 07:00 IKX8949 (Rec: 07/20/18 07:32 PQM8981 ICU-C15) Document 07/20/18 08:00 EBS0054 (Rec: 07/20/18 09:00 YVC8102 ICU-C15) Document 07/20/18 09:00 YUS6198 (Rec: 07/20/18 09:19 RUZ6910 ICU-C15) Document 07/20/18 10:00 ARG5407 (Rec: 07/20/18 10:46 TOF8773 ICU-C15) Document 07/20/18 10:47 WES6007 (Rec: 07/20/18 10:47 APA7685 ICU-C15) Document 07/20/18 12:17 TAG6852 (Rec: 07/20/18 12:17 XIF3020 ICU-C15) Document 07/20/18 13:00 PLL0354 (Rec: 07/20/18 13:27 ESH9218 ICU-C15) Document 07/20/18 14:16 NPP1413 (Rec: 07/20/18 14:16 EKD3877 ICU-M27) Document 07/20/18 15:00 MOV4605 (Rec: 07/20/18 15:03 GGM3516 ICU-M27) Document 07/20/18 16:14 NXP1797 (Rec: 07/20/18 16:14 UFY1526 ICU-M27) Document 07/20/18 17:07 XAS2321 (Rec: 07/20/18 17:07 BIM6838 ICU-C15) Document 07/20/18 18:20 HHN5119 (Rec: 07/20/18 18:20 XGJ4315 [facility] ) Document 07/20/18 19:00 QGN8143 (Rec: 07/20/18 21:34 UHK9455 ICU-C15) Document 07/20/18 21:00 KIU0062 (Rec: 07/20/18 21:35 HVQ4498 ICU-C15) Document 07/20/18 22:00 KHP1306 (Rec: 07/20/18 22:12 IHO0646 ICU-C15) Document 07/20/18 23:00 RXL1496 (Rec: 07/20/18 23:13 ICZ8375 ICU-C15) Document 07/21/18 01:00 GKT8012 (Rec: 07/21/18 01:35 GTU3968 ICU-C15) Document 07/21/18 02:00 BBB3837 (Rec: 07/21/18 02:14 TJL8396 ICU-C15) Document 07/21/18 03:00 QPM3811 (Rec: 07/21/18 03:44 KPC4800 ICU-C25) Document 07/21/18 05:00 TSQ7163 (Rec: 07/21/18 05:05 OIS8749 ICU-C15) Document 07/21/18 06:00 WCH5117 (Rec: 07/21/18 06:23 IJC1852 ICU-C15) Document 07/21/18 07:00 PTA2158 (Rec: 07/21/18 07:20 OKY1181 ICU-C12) Document 07/21/18 08:11 QON9735 (Rec: 07/21/18 08:11 UQO4316 ICU-M27) Document 07/21/18 08:54 UNC4903 (Rec: 07/21/18 08:55 PRP1217 ICU-M27) Document 07/21/18 10:00 XWI6449 (Rec: 07/21/18 10:03 DEO3283 ICU-C12) Document 07/21/18 10:59 FKJ3367 (Rec: 07/21/18 10:59 PXD0184 ICU-C12) Document 07/21/18 12:33 LFU8807 (Rec: 07/21/18 12:33 YWE5824 ICU-C12) Document 07/21/18 13:06 TMF4854 (Rec: 07/21/18 13:06 AMC3846 ICU-C12) Document 07/21/18 14:00 UAU6426 (Rec: 07/21/18 14:06 JHI8662 ICU-C12) Document 07/21/18 16:00 GEO4619 (Rec: 07/21/18 16:01 HDT8778 ICU-C12) Document 07/21/18 16:54 BLA1500 (Rec: 07/21/18 16:54 LAX9958 ICU-C12) Document 07/21/18 18:00 DLG7120 (Rec: 07/21/18 18:02 QSE7530 ICU-C12) Document 07/21/18 19:00 JSO0902 (Rec: 07/21/18 19:56 CUP3919 ICU-C15) Document 07/21/18 20:00 EBV6396 (Rec: 07/21/18 21:16 XKZ7565 ICU-C15) Document 07/21/18 21:00 XNF8323 (Rec: 07/21/18 21:16 HAO2682 ICU-C15) Document 07/21/18 22:00 KYJ3044 (Rec: 07/21/18 22:01 QOZ3090 ICU-C15) Document 07/21/18 23:00 QLA9866 (Rec: 07/22/18 00:28 INL0119 ICU-C15) Document 07/22/18 00:00 BRI9024 (Rec: 07/22/18 00:28 QYN6838 ICU-C15) Document 07/22/18 01:00 XHI1426 (Rec: 07/22/18 01:29 HXZ5451 ICU-C15) Document 07/22/18 02:00 EWP7677 (Rec: 07/22/18 03:53 HQE7730 ICU-C15) Document 07/22/18 03:00 CLZ3358 (Rec: 07/22/18 03:54 NSK8317 ICU-C15) Document 07/22/18 04:00 FRC2372 (Rec: 07/22/18 05:40 GSU6281 ICU-M27) Document 07/22/18 05:00 JHM4456 (Rec: 07/22/18 05:40 QJY4348 ICU-M27) Document 07/22/18 05:39 AIL3978 (Rec: 07/22/18 05:40 HPH4329 ICU-M27) Document 07/22/18 07:56 RJN0864 (Rec: 07/22/18 07:57 YNG9977 ICU-M27) Document 07/22/18 09:00 XAW7228 (Rec: 07/22/18 09:11 IZO5645 ICU-M27) Document 07/22/18 09:58 VAO8425 (Rec: 07/22/18 09:58 AUT9417 ICU-M27) Document 07/22/18 11:00 RVV6821 (Rec: 07/22/18 11:06 QDG3956 ICU-C12) Document 07/22/18 12:35 PRW1392 (Rec: 07/22/18 12:35 KEC4786 ICU-C12) Document 07/22/18 13:31 FUS2073 (Rec: 07/22/18 13:31 YCH5199 ICU-C12) Document 07/22/18 14:20 AFC1249 (Rec: 07/22/18 14:20 JYV7866 ICU-M27) Document 07/22/18 15:05 LVW5286 (Rec: 07/22/18 15:05 ZEG0987 ICU-C12) Document 07/22/18 15:58 GAH3995 (Rec: 07/22/18 15:58 EYD9931 ICU-C12) Document 07/22/18 17:02 ZBG3109 (Rec: 07/22/18 17:03 FLG7569 ICU-C12) Document 07/22/18 18:14 BKX1465 (Rec: 07/22/18 18:15 QVB2350 ICU-C12) Document 07/22/18 19:00 HTR6564 (Rec: 07/22/18 20:14 JUI3256 ICU-C15) Document 07/22/18 20:00 DEK6275 (Rec: 07/22/18 20:14 DPP4787 ICU-C15) Document 07/22/18 21:00 IVD4529 (Rec: 07/22/18 21:06 WVP8412 ICU-C15) Document 07/22/18 22:00 OFA9103 (Rec: 07/22/18 22:16 KBE6618 ICU-C15) Document 07/22/18 23:00 XOS3184 (Rec: 07/22/18 23:54 EJC6555 ICU-C15) Document 07/22/18 23:54 JHJ2648 (Rec: 07/22/18 23:54 ESN8251 ICU-C15) Document 07/23/18 01:00 OEP1185 (Rec: 07/23/18 03:26 UEK1131 ICU-M27) Document 07/23/18 02:00 KNW6553 (Rec: 07/23/18 03:26 VAM4232 ICU-M27) Document 07/23/18 03:00 SGP2767 (Rec: 07/23/18 03:26 HTZ6314 ICU-M27) Document 07/23/18 04:00 NID1919 (Rec: 07/23/18 05:11 PSU7628 ICU-C15) Document 07/23/18 05:00 THZ0745 (Rec: 07/23/18 05:11 VIW9428 ICU-C15) Document 07/23/18 06:00 QCT7818 (Rec: 07/23/18 06:30 YNC1819 ICU-C15) Document 07/23/18 07:00 WOQ1690 (Rec: 07/23/18 08:18 VUG0532 ICU-C12) Document 07/23/18 08:00 FPI0463 (Rec: 07/23/18 08:57 TTT3037 ICU-M27) Document 07/23/18 08:00 MES4690 (Rec: 07/23/18 08:57 CMQ0646 ICU-M27) Document 07/23/18 09:00 TAC6087 (Rec: 07/23/18 09:44 BQG1228 ICU-C12) Document 07/23/18 10:00 NIC3570 (Rec: 07/23/18 10:05 MPI7324 ICU-M27) Document 07/23/18 11:00 LNR4810 (Rec: 07/23/18 11:11 ZFA5269 ICU-C12) Document 07/23/18 12:00 HUH5287 (Rec: 07/23/18 12:11 OPJ6520 ICU-C12) Document 07/23/18 13:00 PTQ7628 (Rec: 07/23/18 13:51 XCT7466 ICU-C12) Document 07/23/18 14:00 JIM4147 (Rec: 07/23/18 17:04 WLU5893 ICU-M27) Document 07/23/18 15:00 TJL7922 (Rec: 07/23/18 17:04 RKZ9598 ICU-M27) Document 07/23/18 16:00 CZS7920 (Rec: 07/23/18 17:04 ZYN0540 ICU-M27) Document 07/23/18 17:00 WZR6933 (Rec: 07/23/18 17:04 ISF5535 ICU-M27) Document 07/23/18 17:08 JYC8719 (Rec: 07/23/18 17:09 OJB4218 ICU-M27) Document 07/23/18 18:00 YNL4583 (Rec: 07/23/18 18:58 KQH9927 ICU-C12) Document 07/23/18 19:00 HYP2291 (Rec: 07/23/18 19:01 TNB3697 ICU-C12) Document 07/23/18 20:00 EUT2403 (Rec: 07/23/18 20:03 QLZ7093 ICU-M27) Document 07/23/18 21:00 SOS0843 (Rec: 07/23/18 22:20 GDE0034 ICU-M27) Document 07/23/18 22:00 QQH1932 (Rec: 07/23/18 22:20 EKY7525 ICU-M27) Document 07/23/18 23:00 WZH3054 (Rec: 07/23/18 23:12 NVI8420 ICU-C25) Document 07/24/18 00:00 YNH9211 (Rec: 07/24/18 00:39 IUF3989 ICU-C25) Document 07/24/18 01:00 OEV2852 (Rec: 07/24/18 01:04 ZYG3403 ICU-M27) Document 07/24/18 02:00 NTI1575 (Rec: 07/24/18 03:10 PGD6614 ICU-C25) Document 07/24/18 03:00 GYP3212 (Rec: 07/24/18 03:10 KQX8363 ICU-C25) Document 07/24/18 04:00 BIQ8031 (Rec: 07/24/18 04:06 ECR2403 ICU-C25) Document 07/24/18 05:00 VEF0188 (Rec: 07/24/18 05:19 OLH2363 ICU-C25) Document 07/24/18 06:00 XPZ7392 (Rec: 07/24/18 06:14 UJK2193 ICU-M27) Document 07/24/18 07:00 ZYQ1005 (Rec: 07/24/18 07:19 OKB8998 ICU-C25) Document 07/24/18 08:00 VOB5407 (Rec: 07/24/18 09:00 TUA3433 ICU-C12) Document 07/24/18 09:00 HZH9834 (Rec: 07/24/18 09:00 WQL7272 ICU-C12) Labs: Laboratory Results - last 24 hr 07/24/18 07/24/18 06:15 06:15 WBC 11.0 H RBC 2.96 L Hgb 9.3 L Hct 27 L MCV 93 MCH 32 H MCHC 34 RDW 15 Plt Count 215 MPV 8.7 Sodium 146 H Potassium 3.1 L Chloride 112 H Carbon Dioxide 26 Anion Gap 8 BUN 69 H Creatinine 1.46 H Est GFR ( Amer) 41.8 Est GFR (Non-Af Amer) 34.6 BUN/Creatinine Ratio 47.3 H Glucose 129 H Calcium 8.9 Phosphorus 3.8 Magnesium 2.4 Total Bilirubin 0.80 AST 79 H ALT 40 Alkaline Phosphatase 241 H Total Protein 5.7 L Albumin 2.8 L Globulin 2.9 Albumin/Globulin Ratio 1.0 Studies: 07/21 CXR: bilateral infiltrates with progression in RUL 07/20 CXR: Improvement in pulmonary edema as compared to 07/19 film 07/19 CXR: findings suggestive of pneumonia with 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 increased density in right paratracheal region. 07/18 EEG: mild-moderate encephalopathy due to sedation. No epileptiform discharges. 07/18 CXR: cardiogenic pulmonary edema with possible pneumonia in LLL. Unchanged from prior film 07/17 CT abd/pelvis: 1. Multifocal pneumonia 2. No etiology for elevated LFTS 3. Nonspecific left perirenal/armani-adrenal stranding without other findings to suggest pyelonephritis 07/17 CT brain: 1. No acute intracranial pathoogy 2. Mild chronic small vessel ischemic disease 07/17 CXR: LLL infiltrate (my read) Nutrition: TF Glucerna @ 30 ml/hr, advancing to goal 55 ml/hr Impression: 77 yo F with 3 day history of shortness of breath, chest pain, nausea and vomiting after eating at [employer]. Initially seen in ED on 07/15 and workup felt consistent with acute viral infection. Returns to ED on 07/17 for worsening shortness of breath. CXR shows new LLL, WBC elevated. Admitted with multifocal community acquired pneumonia and septic shock. LFTs elevated on admission but improving. Now with LANIE on CKD. Plan: Cardiovascular: (1) Septic shock, improving; (2) Pacemaker in situ; (3) NSTEMI , demand mediated; (4) Chronic Benign essential HTN -- HR 68-77 -- SBP 102-189 -- Telemetry -- Lipid panel Trigluycerides 161, borderline high cholesterol 60 LDL 17 HDL 10.7, low -- TTE, 07/19: Hyperdynamic LVEF -- Vasopressors Levophed weaned off -- ASA -- atorvastatin -- Atenolol -- PRN hydralazine for goal SBP < 160 -- scheduled Lasix for diuresis, change to gtt Home meds: Warfarin, Atenolol, Atorvastatin Pulmonary: (1) Community acquired multifocal pneumonia, (2) acute hypoxic respiratory failure requiring intubation; (3) hx of bronchitis -- RR 15-29 -- sats 91-99% on Vent -- daily sedation vacation and spontaneous breathing trial -- CXR 07/21 mild progression in RUL, imrprovement in L lobe -- PRN Albuterol and Atrovent inhalers -- Broad spectrum abx for PNA coverage -- anticipate need to diurese ~ 8 L prior to extubation Home meds: None Gastrointestinal: (1) Acute nausea and vomiting, resolved; (2) Hyperbilirubinemia/elevated LFTs, improving; (3) hx of constipation/diarrhea and nausea over the past 9+ months -- LFTs, follow trend Tbili 0.8 ALK 241 from 198 from 184 AST 79 from 75 from 77 ALT 40 -- Hepatitis panel negative -- US gall bladder: 8mm wall, but no surrounding fat stranding or pericholecystic fluid, plan for HIDA electively when clinically improved to assess for chronic condition, family updated on need for outpatient followup with PCP -- diet: TF, advancing to goal -- bowel regimen: None -- ulcer prophylaxis: Protonix -- Zofran as needed for vomiting -- GI consult appreciated Home meds: Omeprazole, Zofran Endocrine: (1) hx of thyroid cancer s/p thyroidectomy and radiation; (2) Hyperglycemia -- monitor BGs -- SSI -- Synthroid Home meds: Synthroid Renal: (1) chronic stress incontinence; (2) LANIE on Chronic kidney disease; (3) Hyponatremia, resolved; (4) Hypocalcemia, resolving; (5) Oliguria, improving -- UOP 80 ml/hr -- I/O: -- Cr 1.46 from 1.63 -- Lytes Na 146 from 142 CL 112 from 112, on FWF K 3.1, replacement ordered Ca 8.9 Mag 2.4 Phos 3.8 -- IVF: HLIVF -- scheduled Lasix for diuresis, change to gtt Home meds: None Infectious disease: (1) Multifocal bilateral community acquired pneumonia; (2) Sepsis; (3) Possible cholecystitis -- Tmax 100.4F -- WBC 11.0 from 9.5 -- Micro 07/22 sputum Yeast and normal brenda, colonized 07/18 sputum Negative 07/17 Flu screen Negative Urinalysis Negative Urine Negative blood No growth to date 07/15 Flu screen negative -- ABX x 7 day course, ends today Rocephin Azithromycin Home meds: PRN Valacyclovir Neurologic: (1) Acute metabolic encephalopathy; (2) chronic back and shoulder pain; (3) chronic bilateral leg neuropathy; (4) chronic headaches; (5) Quesiton of seizure activity determined to NOT be seizures -- Precedex gtt for sedation -- PRN Fentanyl for pain control -- PRN Tylenol for fevers -- Neurology consult appreciated -- Lexapro Home meds: Lexapro, [place] Hematological: (1) Anemia -- Hgb 9.3 from 9.4 -- Plt 215 from 192 -- DVT prophylaxis: SQ Heparin -- ASA Home meds: Warfarin Metabolic: (1) Lactic acidosis, resolved Home meds: None Other: Home meds: Vitamin D, MVI Deep vein thrombosis prophylaxis: SQ Heparin Dietary: Protonix Condition: critical Prognosis: guarded Code status: full Disposition: continue ICU care Cumulative time spent in the care of this patient (excluding any procedure time) : at least 40 minutes. Patient care included clinical interview (with patient and/or family), bedside exam of the patient, review of labs, x-rays, and other ancillary data, coordination of (respiratory, nursing care, review of patient's records, discussion regarding patients management with involved consultants, primary physician, pharmacists, and other healthcare personnel (dietary, case management , physical/occupational therapy etc.) Critical Care Time: 40
[2018-07-24] MEDS: Metoclopramide IV* 5 MG/ML 2 ML VIAL IV SLOW PU SCH ×2 (11:53→17:47)
[2018-07-24] MEDS: KCL 20 MEQ/100 ML IVPREMIX* 20 MEQ/100 ML BAG IV SCH ×2 (11:56→15:07)
[2018-07-24] MEDS: Furosemide IV* 100 MG in NS 0.9% 100 ML* 90 ML IV SCH ×2 (13:04→21:39)
[2018-07-24] MEDS ORDERED: Albumin Human 25%* 25 GM/100 ML BTL IV ONE (14:00)
[2018-07-24] MEDS: Atorvastatin* 80 MG TAB PO SCH (21:04)
[2018-07-25] MEDS: Acetaminophen ADULT LIQ* 650 MG/20.3 ML UDC PO PRN ×2 (00:38→16:37)
[2018-07-25] MEDS: Chlorhexidine MOUTHWASH 0.12%* 15 ML UDC TOPICAL SCH ×6 (00:38→19:55)
[2018-07-25] MEDS: Metoclopramide IV* 5 MG/ML 2 ML VIAL IV SLOW PU SCH ×4 (00:39→16:37)
[2018-07-25] MEDS: Albuterol/Ipratropium NEB.SOL* Albuterol 2.5 MG/Ipratropium 0.5 MG 3 ML INH SCH ×4 (01:23→19:40)
[2018-07-25 06:01] LABS: Hematocrit 29 % (35-47); Hemoglobin 9.5 g/dl (12.0-16.0); Mean Corpuscular HGB Conc 33 g/dl (31-36); Mean Corpuscular Hemoglobin 30 pg (27-31); Mean Corpuscular Volume 92 fL (80-97); Platelet Count 265 10^3/ul (150-450); Red Blood Count 3.14 10^6/ul (4.00-5.40); Red Cell Distribution Width 15 % (10.5-15); White Blood Count 16.5 10^3/ul (3.5-10.8)
[2018-07-25 06:18] LABS: Albumin 2.9 g/dL (3.2-5.2); Albumin/Globulin Ratio 0.9 (1-3); BUN/Creatinine Ratio 61.3 (8-20); Calcium 9.1 mg/dL (8.6-10.3); EGFR African American 50.5 (>60); EGFR Non-African American 41.7 (>60); Globulin 3.2 g/dL (2-4); Magnesium 2.1 mg/dL (1.9-2.7); Phosphorus 2.3 mg/dL (2.5-5.0); Total Bilirubin 0.9 mg/dL (0.2-1.0); Total Protein 6.1 g/dL (6.4-8.9)
[2018-07-25 06:23] LABS: Potassium 2.6 mmol/L (3.5-5.0)
[2018-07-25] MEDS: KCL 20 MEQ/100 ML IVPREMIX* 20 MEQ/100 ML BAG IV SCH ×4 (06:34→16:27)
[2018-07-25] MEDS: Levothyroxine TAB* 150 MCG TAB PO SCH (06:38)
[2018-07-25] MEDS: Furosemide IV* 100 MG in NS 0.9% 100 ML* 90 ML IV SCH (06:53)
[2018-07-25] MEDS ORDERED: Dexmedetomidine* 400 MCG in NS 0.9% 100 ML* 96 ML IVPB SCH (07:00)
[2018-07-25] MEDS: Aspirin 81 mg CHEW TAB* 81 MG TAB.CHEW PO SCH (09:23)
[2018-07-25] MEDS: Atenolol TAB* 25 MG PO SCH ×2 (09:23→21:37)
[2018-07-25] MEDS: Pantoprazole IV* 40 MG IV SCH (09:23)
[2018-07-25] MEDS: Citalopram TAB* 20 MG PO SCH (09:23)
[2018-07-25] MEDS: Heparin VIAL(*) 5000 UNITS/ML VIAL (FIVE THOUSAND) SUBCUT SCH ×2 (09:23→21:37)
[2018-07-25] MEDS ORDERED: Insulin REGULAR(*) 1 UNITS UNIT SUBCUT ONE (12:20)
[2018-07-25] MEDS ORDERED: Vancomycin(*) 1,000 MG in NS 0.9% 250 ML* 250 ML IVPB ONE ×2 (12:58→14:45)
[2018-07-25] MEDS: Potassium Chloride LIQUID* 20 MEQ PACKET FEED TUBE SCH ×2 (13:01→21:37)
[2018-07-25] MEDS ORDERED: Aztreonam (*) 2 GM in NS 0.9% 50 ML* 50 ML IVPB SCH (14:00)
[2018-07-25] MEDS ORDERED: Vancomycin per Pharmacy* NOTE FOLLOW UP PRN (14:39)
[2018-07-25] MEDS: Aztreonam (*) 2 GM in NS 0.9% 50 ML* 50 ML IVPB SCH ×2 (14:54→23:15)
[2018-07-25] MEDS ORDERED: Propofol* 100 ML ONE (17:29)
[2018-07-25] MEDS: Propofol* 100 ML IV ONE (17:30)
[2018-07-25 17:43] LABS: BUN/Creatinine Ratio 62.9 (8-20); Calcium 9.1 mg/dL (8.6-10.3); EGFR African American 54.5 (>60); EGFR Non-African American 45.1 (>60); Phosphorus 1.7 mg/dL (2.5-5.0); Potassium 3.3 mmol/L (3.5-5.0)
--- NOTE | 2018-07-25 18:44 | PN ---
Date of Service: 07/25/18 Critical Care Services: 77 yo F with PMH including thyroid cancer s/p resection and radiation, chronic pain, chronic (9+mo hx) of nausea, constipation and diarrhea was seen recently in the ED on 07/15 with complaints of nausea, vomiting and chest pain. At that time WBC was normal, flu screen was negative anc CXR did not show an acute process. EKG demonstrated only an AV dual-paced rhythm and troponin was negative. She was dicharged home. She returns to the ED today with complaints of ongoing nausea, vomiting and shortness of breath. CXR demonstrates new LLL pneumonia and elevated WBC. Sepsis markers positive. Also found to have hyperbilirubinemia. Admitted to ICU for further workup and care Shortly after arrival to ICU she developed worsened hypoxia and became unresponsive. She was intubated for acute hypoxic respiratory failure and airway protection. A central line was placed for medication administration and lab draws. Repeat lactic acid bumped up to 3.0. Bolused an additional 2L NL with subsequent improvement to 2.[address] of head and abdomen were negative for acute pathology aside from known pneumonia and some mild nonspecific armani-adrenal fat stranding. She had a brief episode of lower extremity extention with twitching which resolved spontaneously Family updated regarding clinical course and plan of care 07/18: Overnight she required the initiation of Levophed to maintain MAPs > 65. This AM she had a second episode of lower extremity extention with twitching and periorbital twitching. Given Ativan and Keppra load and EEG ordered. Evaluated by Neurology, once sedation off patient following commands during episodes and EEG negative thus not seizure activity. No need for ongoing antiepileptics. GI consulted for elevated LFTs and findings of thickened gallbladder wall. Plan of possible ERCP on 07/19. Weaned off pressors by afternoon, but restarted in evening to keep MAPs > 65 07/19: Low urine output overnight. Bolused 1L NS. LFTs improved. Seen by GI, no need for intervention at this time. UOP decreased, BNP elevated, Lasix x 1 given. 07/20: Given Lasix x 2 for low urine output and volume overload. On minimal pressors (1-3 mcg/min Levophed). TF started. 07/21: Tolerated spontaneous breathing trial x 12 hours. Slow to awaken during sedation vacation. Vasopressors weaned off. 07/22: Tolerated spontaneous breathing trial during day. Beginning to arouse. Given albumin for oliguria with improvement 07/23: Began auto-diuresing overnight. Following commands. Tolerating PS throughout day. 07/25: did not tolerate SBT due to tachypnea. Agitated off precedex. No other overnight events Vital Signs: Temp Pulse Resp BP SpO2 FiO2 101.8 F 70 32 167/79 93 30 07/25/18 18:00 07/25/18 18:00 07/25/18 18:00 07/25/18 18:00 07/25/18 18:00 07/25 16:00 Physical Exam: Gen: NAD HEENT: ETT in place, NCAT Lungs: air entry bilaterally Cardiac: RRR Abdomen: soft, NTND Extremities: warm, dry, edmatous Neuro: No focal. Follows commands intermittently Fluid Balance (Past 24 Hours): I= O= Net Intake & Output 07/23/18 07/24/18 07/25/18 07/26/18 06:59 06:59 06:59 06:59 Intake Total 1604.0 2940.5 2060.2 1188 Output Total 2185 2019 4858 2700 Balance -581.0 921.5 -2797.8 -1512 Weight 169 lb 8.568 oz 170 lb 3.2 oz 176 lb 12.972 oz Intake: IV Fluids 210 83.5 141.5 360 Albumin 100 40 Azithromycin 20 CEFTRIAXONE 50 Calcium Gluconate 40 NS 43.5 141.5 360 IVPB 365 428 98 Albumin 100 Azithromycin 255 270 CEFTRIAXONE 50 58 Calcium Gluconate 60 NS 98 Medicated IV 110.0 207.0 437.7 135 GEN - Furosemide/Lasix 172.8 45 Precedex 110.0 207.0 164.9 90 potassium 100 Tube Feeding 769 1551 595 442 Tube Feeding Flush Amount 150 581 422 251 Albumin 81 NG Tube Irrigate Amount 90 285 Output: Walsh 1660 1894 4858 2700 Tube Feeding Residual 525 125 Amount Wasted Other: Estimated Stool Amount Large ADLs: Meal Record Start: 07/17/18 17: 39 Freq: Status: Active Protocol: Created 07/17/18 17:39 System (Rec: 07/17/18 17:39 System ICU-C20) Document 07/17/18 18:00 HZN0954 (Rec: 07/17/18 18:09 LNK6828 ICU-C12) Document 07/18/18 09:00 MUE8752 (Rec: 07/18/18 10:08 YVX4001 ICU-C15) Document 07/18/18 13:00 AAD7287 (Rec: 07/18/18 13:24 UNY6991 ICU-C15) Document 07/18/18 18:00 FSZ0023 (Rec: 07/18/18 18:15 UHW1939 ICU-C15) Document 07/19/18 09:00 VBW6617 (Rec: 07/19/18 09:05 VYW7368 ICU-M27) Document 07/19/18 12:57 DUN4763 (Rec: 07/19/18 12:58 EOY2914 ICU-L03) Document 07/19/18 18:00 MMC4715 (Rec: 07/19/18 18:32 DQG3445 ICU-C15) Document 07/20/18 09:00 EQI6246 (Rec: 07/20/18 09:21 ZND1010 ICU-C15) Document 07/20/18 13:00 GSR6334 (Rec: 07/20/18 13:27 UPV5824 ICU-C15) Document 07/20/18 17:06 XHZ4696 (Rec: 07/20/18 17:06 DBF5019 ICU-C15) Document 07/21/18 08:55 QRV3168 (Rec: 07/21/18 08:55 DYD8095 ICU-M27) Document 07/21/18 12:37 BUD7848 (Rec: 07/21/18 12:37 IZB9440 ICU-C12) Document 07/21/18 17:01 QXF5890 (Rec: 07/21/18 17:01 HKY9802 ICU-C12) Document 07/22/18 09:00 RSJ2087 (Rec: 07/22/18 09:11 TZQ0773 ICU-M27) Document 07/22/18 13:20 KQZ4313 (Rec: 07/22/18 13:20 FAH9583 ICU-C12) Document 07/22/18 17:04 URT0993 (Rec: 07/22/18 17:04 LWE1606 ICU-C12) Document 07/23/18 09:00 RSZ3732 (Rec: 07/23/18 09:39 VMX7728 ICU-C12) Document 07/23/18 13:00 BPX7422 (Rec: 07/23/18 13:43 AXX9787 ICU-C12) Document 07/24/18 09:00 IWU4980 (Rec: 07/24/18 09:12 XHG3057 ICU-C12) Document 07/24/18 13:00 ITV9552 (Rec: 07/24/18 13:02 CTF0597 ICU-C12) Document 07/24/18 18:00 JZB5842 (Rec: 07/24/18 18:02 XNZ5200 ICU-M27) Intake and Output Start: 07/17/18 15: 30 Freq: Status: Active Protocol: Created 07/17/18 15:30 System (Rec: 07/17/18 15:30 System EDRM-C04) Intake and Output Start: 07/17/18 17: 39 Freq: Q1HR Status: Active Protocol: Created 07/17/18 17:39 System (Rec: 07/17/18 17:39 System ICU-C20) Document 07/17/18 18:00 NPS8701 (Rec: 07/17/18 18:09 KUM4136 ICU-C12) Document 07/17/18 20:00 TBQ3273 (Rec: 07/17/18 21:35 EHG0511 ICU-C12) Document 07/17/18 21:00 ZBL0713 (Rec: 07/17/18 22:27 EHJ3348 ICU-M27) Document 07/17/18 22:00 SWK0352 (Rec: 07/18/18 00:01 WLR2460 ICU-C12) Document 07/17/18 23:00 KJX6861 (Rec: 07/18/18 00:01 DER9177 ICU-C12) Document 07/18/18 00:00 HBC4972 (Rec: 07/18/18 02:55 VVA6287 ICU-C12) Document 07/18/18 01:00 RKJ9242 (Rec: 07/18/18 02:55 WKM3173 ICU-C12) Document 07/18/18 02:00 EVB8722 (Rec: 07/18/18 02:55 EEE1283 ICU-C12) Document 07/18/18 03:00 XFR1150 (Rec: 07/18/18 03:16 WWF4923 ICU-C12) Document 07/18/18 04:00 FXU5702 (Rec: 07/18/18 05:15 URQ9286 ICU-M27) Document 07/18/18 06:30 NKI5553 (Rec: 07/18/18 06:30 RXS8486 ICU-M27) Document 07/18/18 07:00 PKS3161 (Rec: 07/18/18 07:22 WKA1151 ICU-M27) Document 07/18/18 08:00 JGB7800 (Rec: 07/18/18 09:14 IPH0702 ICU-M27) Document 07/18/18 09:00 QRM1686 (Rec: 07/18/18 09:15 PMD6013 ICU-M27) Document 07/18/18 10:00 JUV4172 (Rec: 07/18/18 10:08 GIN9379 ICU-C15) Document 07/18/18 11:00 JYS3302 (Rec: 07/18/18 11:07 CWC0241 ICU-M27) Document 07/18/18 12:00 QOM5153 (Rec: 07/18/18 12:25 OOV9383 ICU-C15) Document 07/18/18 13:00 ISS3434 (Rec: 07/18/18 13:24 OCX1190 ICU-C15) Document 07/18/18 14:00 LUF5445 (Rec: 07/18/18 14:14 PMR9442 ICU-C15) Document 07/18/18 15:00 OYB2323 (Rec: 07/18/18 15:13 ZJD1865 ICU-C15) Document 07/18/18 16:00 UGM4694 (Rec: 07/18/18 17:41 KQQ9452 ICU-C15) Document 07/18/18 17:00 KLG4638 (Rec: 07/18/18 17:58 TQD3703 ICU-C15) Document 07/18/18 18:00 PDR0105 (Rec: 07/18/18 18:15 QCR4140 ICU-C15) Document 07/18/18 21:55 FAE1208 (Rec: 07/18/18 21:55 RTX0385 ICU-M27) Document 07/18/18 23:00 HDW0779 (Rec: 07/18/18 23:31 FDK8604 ICU-C15) Document 07/18/18 23:59 APA0674 (Rec: 07/18/18 23:59 KOL2280 ICU-M27) Document 07/19/18 02:58 RAX6124 (Rec: 07/19/18 02:58 KJM2261 ICU-C14) Document 07/19/18 03:00 SGJ2258 (Rec: 07/19/18 03:15 BWB1154 ICU-M27) Document 07/19/18 04:00 WID7773 (Rec: 07/19/18 05:28 NYE6315 ICU-C15) Document 07/19/18 05:00 CMJ4383 (Rec: 07/19/18 05:32 SMM3579 ICU-C15) Document 07/19/18 06:00 FDY2046 (Rec: 07/19/18 06:35 KUY4430 ICU-C15) Document 07/19/18 07:00 SIP1093 (Rec: 07/19/18 09:03 QUE1388 ICU-M27) Document 07/19/18 08:00 QPT6771 (Rec: 07/19/18 09:03 GGD7469 ICU-M27) Document 07/19/18 09:00 EXZ7871 (Rec: 07/19/18 09:03 KGD3483 ICU-M27) Document 07/19/18 10:00 BCG5580 (Rec: 07/19/18 10:41 KJL2275 ICU-M27) Document 07/19/18 10:45 OWH5074 (Rec: 07/19/18 10:45 EZP1160 ICU-M27) Document 07/19/18 11:00 GCX3799 (Rec: 07/19/18 11:04 JYN5369 ICU-M27) Document 07/19/18 12:00 BGT3323 (Rec: 07/19/18 12:12 ZGD0880 ICU-M27) Document 07/19/18 12:59 NCC1910 (Rec: 07/19/18 12:59 EHC9128 ICU-L03) Document 07/19/18 13:56 BJS1498 (Rec: 07/19/18 13:57 BAW1782 ICU-L03) Document 07/19/18 14:54 BDZ0544 (Rec: 07/19/18 14:54 ZCE6165 ICU-L03) Document 07/19/18 16:00 EQO2662 (Rec: 07/19/18 16:42 ZSN9147 ICU-C15) Document 07/19/18 17:00 ICV6890 (Rec: 07/19/18 18:31 FFQ9427 ICU-C15) Document 07/19/18 18:00 HUL5745 (Rec: 07/19/18 18:32 OGM7159 ICU-C15) Document 07/19/18 19:00 MAW4406 (Rec: 07/19/18 19:16 MUX3836 ICU-M27) Document 07/19/18 21:00 CCU8158 (Rec: 07/19/18 21:27 JBG2897 ISDEMO-M03 ) Document 07/19/18 22:00 LUS9389 (Rec: 07/19/18 22:13 FWD2784 ICU-L03) Document 07/19/18 22:54 INA5280 (Rec: 07/19/18 22:54 XAH0223 ICU-M27) Document 07/20/18 00:00 ERO9889 (Rec: 07/20/18 01:34 KFW7757 ICU-L03) Document 07/20/18 01:00 ISY0855 (Rec: 07/20/18 01:34 EEA9862 ICU-L03) Document 07/20/18 02:00 YLA3189 (Rec: 07/20/18 02:07 WWU3627 ICU-L03) Document 07/20/18 03:00 XXU7717 (Rec: 07/20/18 04:37 HYF8548 ICU-L03) Document 07/20/18 04:00 TSO6108 (Rec: 07/20/18 04:37 GPD6420 ICU-L03) Document 07/20/18 05:00 QAB8482 (Rec: 07/20/18 05:12 SZM7086 ICU-L03) Document 07/20/18 06:00 NPZ9573 (Rec: 07/20/18 06:07 VRN2926 ICU-M27) Document 07/20/18 07:00 NLF3261 (Rec: 07/20/18 07:32 NRO2736 ICU-C15) Document 07/20/18 08:00 OIU4341 (Rec: 07/20/18 09:00 QTK8091 ICU-C15) Document 07/20/18 09:00 ILG2874 (Rec: 07/20/18 09:19 OEL5066 ICU-C15) Document 07/20/18 10:00 VKS3065 (Rec: 07/20/18 10:46 ILE2832 ICU-C15) Document 07/20/18 10:47 NFT0796 (Rec: 07/20/18 10:47 PYA4897 ICU-C15) Document 07/20/18 12:17 BCL5710 (Rec: 07/20/18 12:17 AOV6546 ICU-C15) Document 07/20/18 13:00 ALE5186 (Rec: 07/20/18 13:27 LNR7074 ICU-C15) Document 07/20/18 14:16 KLA9551 (Rec: 07/20/18 14:16 RJW1481 ICU-M27) Document 07/20/18 15:00 TDY8315 (Rec: 07/20/18 15:03 KOS6029 ICU-M27) Document 07/20/18 16:14 RYT0113 (Rec: 07/20/18 16:14 GNA1897 ICU-M27) Document 07/20/18 17:07 WKQ2687 (Rec: 07/20/18 17:07 YCE4882 ICU-C15) Document 07/20/18 18:20 WNC3568 (Rec: 07/20/18 18:20 SWK8265 ISDEPA-M03 ) Document 07/20/18 19:00 NYB1551 (Rec: 07/20/18 21:34 MIN9769 ICU-C15) Document 07/20/18 21:00 OGI7883 (Rec: 07/20/18 21:35 CUN9716 ICU-C15) Document 07/20/18 22:00 IZH7505 (Rec: 07/20/18 22:12 VLP4506 ICU-C15) Document 07/20/18 23:00 WNC3453 (Rec: 07/20/18 23:13 QCO4512 ICU-C15) Document 07/21/18 01:00 LZF3709 (Rec: 07/21/18 01:35 EGV1669 ICU-C15) Document 07/21/18 02:00 QBL3316 (Rec: 07/21/18 02:14 JZC4399 ICU-C15) Document 07/21/18 03:00 RLG1065 (Rec: 07/21/18 03:44 KUK4491 ICU-C25) Document 07/21/18 05:00 BAS6010 (Rec: 07/21/18 05:05 LNQ3990 ICU-C15) Document 07/21/18 06:00 AFW5960 (Rec: 07/21/18 06:23 NSJ7554 ICU-C15) Document 07/21/18 07:00 PHI8986 (Rec: 07/21/18 07:20 NRX5786 ICU-C12) Document 07/21/18 08:11 XLU6704 (Rec: 07/21/18 08:11 CJT7934 ICU-M27) Document 07/21/18 08:54 UFG9803 (Rec: 07/21/18 08:55 OOO8199 ICU-M27) Document 07/21/18 10:00 URI6619 (Rec: 07/21/18 10:03 DAS0109 ICU-C12) Document 07/21/18 10:59 JGO2259 (Rec: 07/21/18 10:59 LVN6799 ICU-C12) Document 07/21/18 12:33 QTD6493 (Rec: 07/21/18 12:33 OCF4613 ICU-C12) Document 07/21/18 13:06 KBZ5653 (Rec: 07/21/18 13:06 UXW1550 ICU-C12) Document 07/21/18 14:00 UCX5713 (Rec: 07/21/18 14:06 WPT0552 ICU-C12) Document 07/21/18 16:00 EUO4577 (Rec: 07/21/18 16:01 ICA5120 ICU-C12) Document 07/21/18 16:54 PTA7367 (Rec: 07/21/18 16:54 YIW6938 ICU-C12) Document 07/21/18 18:00 YVN1515 (Rec: 07/21/18 18:02 NLA9419 ICU-C12) Document 07/21/18 19:00 SRZ0475 (Rec: 07/21/18 19:56 QMN7314 ICU-C15) Document 07/21/18 20:00 LFA6342 (Rec: 07/21/18 21:16 SOH5547 ICU-C15) Document 07/21/18 21:00 PTM3462 (Rec: 07/21/18 21:16 ZZN4204 ICU-C15) Document 07/21/18 22:00 EHK4061 (Rec: 07/21/18 22:01 PDT8465 ICU-C15) Document 07/21/18 23:00 SGU8204 (Rec: 07/22/18 00:28 AIY9762 ICU-C15) Document 07/22/18 00:00 DKA7632 (Rec: 07/22/18 00:28 OWA2206 ICU-C15) Document 07/22/18 01:00 REG2359 (Rec: 07/22/18 01:29 SDZ6112 ICU-C15) Document 07/22/18 02:00 HSV4848 (Rec: 07/22/18 03:53 OTA3822 ICU-C15) Document 07/22/18 03:00 NGJ3415 (Rec: 07/22/18 03:54 GIN0481 ICU-C15) Document 07/22/18 04:00 LYI4833 (Rec: 07/22/18 05:40 HER4458 ICU-M27) Document 07/22/18 05:00 EEM2283 (Rec: 07/22/18 05:40 ITR9236 ICU-M27) Document 07/22/18 05:39 YFI8838 (Rec: 07/22/18 05:40 PID1140 ICU-M27) Document 07/22/18 07:56 YLT2272 (Rec: 07/22/18 07:57 NMJ2544 ICU-M27) Document 07/22/18 09:00 JIC1355 (Rec: 07/22/18 09:11 DIZ9203 ICU-M27) Document 07/22/18 09:58 NXM4869 (Rec: 07/22/18 09:58 PQS8976 ICU-M27) Document 07/22/18 11:00 QKU9242 (Rec: 07/22/18 11:06 JSN9253 ICU-C12) Document 07/22/18 12:35 PAK6413 (Rec: 07/22/18 12:35 KUK4258 ICU-C12) Document 07/22/18 13:31 WPF7550 (Rec: 07/22/18 13:31 MUN6225 ICU-C12) Document 07/22/18 14:20 RPF5679 (Rec: 07/22/18 14:20 QSS1933 ICU-M27) Document 07/22/18 15:05 ANR6811 (Rec: 07/22/18 15:05 FQO0409 ICU-C12) Document 07/22/18 15:58 FPE6184 (Rec: 07/22/18 15:58 GEP8815 ICU-C12) Document 07/22/18 17:02 ZAC4743 (Rec: 07/22/18 17:03 PPP9675 ICU-C12) Document 07/22/18 18:14 LED9975 (Rec: 07/22/18 18:15 GJY1196 ICU-C12) Document 07/22/18 19:00 BZU9523 (Rec: 07/22/18 20:14 UMQ7942 ICU-C15) Document 07/22/18 20:00 RZT3521 (Rec: 07/22/18 20:14 RSL2899 ICU-C15) Document 07/22/18 21:00 MGO4903 (Rec: 07/22/18 21:06 XKA3796 ICU-C15) Document 07/22/18 22:00 AOK9598 (Rec: 07/22/18 22:16 AES2756 ICU-C15) Document 07/22/18 23:00 CFA7077 (Rec: 07/22/18 23:54 IQF3871 ICU-C15) Document 07/22/18 23:54 RDG0139 (Rec: 07/22/18 23:54 PIC8956 ICU-C15) Document 07/23/18 01:00 QYC7803 (Rec: 07/23/18 03:26 JZE7568 ICU-M27) Document 07/23/18 02:00 JRO2393 (Rec: 07/23/18 03:26 RUD5481 ICU-M27) Document 07/23/18 03:00 SPQ1968 (Rec: 07/23/18 03:26 LKA2018 ICU-M27) Document 07/23/18 04:00 HYF8663 (Rec: 07/23/18 05:11 NNX1216 ICU-C15) Document 07/23/18 05:00 DLD3630 (Rec: 07/23/18 05:11 NFP2638 ICU-C15) Document 07/23/18 06:00 BEH6869 (Rec: 07/23/18 06:30 VMI3116 ICU-C15) Document 07/23/18 07:00 BKT6705 (Rec: 07/23/18 08:18 HTU5871 ICU-C12) Document 07/23/18 08:00 NMV6472 (Rec: 07/23/18 08:57 PNB0338 ICU-M27) Document 07/23/18 08:00 JHO0904 (Rec: 07/23/18 08:57 UQW3541 ICU-M27) Document 07/23/18 09:00 UFC4950 (Rec: 07/23/18 09:44 NDP8955 ICU-C12) Document 07/23/18 10:00 DTM7323 (Rec: 07/23/18 10:05 UYJ7162 ICU-M27) Document 07/23/18 11:00 DRI4733 (Rec: 07/23/18 11:11 WJF0177 ICU-C12) Document 07/23/18 12:00 MYM2930 (Rec: 07/23/18 12:11 CNW2274 ICU-C12) Document 07/23/18 13:00 VDY6338 (Rec: 07/23/18 13:51 AHK0212 ICU-C12) Document 07/23/18 14:00 MQS3728 (Rec: 07/23/18 17:04 IQA8977 ICU-M27) Document 07/23/18 15:00 EEJ8263 (Rec: 07/23/18 17:04 ZSE6266 ICU-M27) Document 07/23/18 16:00 FGG9285 (Rec: 07/23/18 17:04 UFT2709 ICU-M27) Document 07/23/18 17:00 YYR4638 (Rec: 07/23/18 17:04 PWZ0662 ICU-M27) Document 07/23/18 17:08 XEB7121 (Rec: 07/23/18 17:09 RIU7331 ICU-M27) Document 07/23/18 18:00 MAV4494 (Rec: 07/23/18 18:58 GFW9193 ICU-C12) Document 07/23/18 19:00 KYY7491 (Rec: 07/23/18 19:01 PRH0526 ICU-C12) Document 07/23/18 20:00 RPW5911 (Rec: 07/23/18 20:03 ZXU5254 ICU-M27) Document 07/23/18 21:00 DKD6509 (Rec: 07/23/18 22:20 TAM6475 ICU-M27) Document 07/23/18 22:00 HGN1212 (Rec: 07/23/18 22:20 TIE1169 ICU-M27) Document 07/23/18 23:00 YLO4601 (Rec: 07/23/18 23:12 RWH8101 ICU-C25) Document 07/24/18 00:00 XTT0585 (Rec: 07/24/18 00:39 LWL7202 ICU-C25) Document 07/24/18 01:00 ZJY7966 (Rec: 07/24/18 01:04 OFW8069 ICU-M27) Document 07/24/18 02:00 LSN5413 (Rec: 07/24/18 03:10 FHP5177 ICU-C25) Document 07/24/18 03:00 QEI1235 (Rec: 07/24/18 03:10 SHT9072 ICU-C25) Document 07/24/18 04:00 SUA7389 (Rec: 07/24/18 04:06 NTG0628 ICU-C25) Document 07/24/18 05:00 EKK2982 (Rec: 07/24/18 05:19 VKW5043 ICU-C25) Document 07/24/18 06:00 YVZ1587 (Rec: 07/24/18 06:14 DHX4921 ICU-M27) Document 07/24/18 07:00 QKR8531 (Rec: 07/24/18 07:19 UAV1412 ICU-C25) Document 07/24/18 08:00 ZET8293 (Rec: 07/24/18 09:00 WVW1256 ICU-C12) Document 07/24/18 09:00 USB5937 (Rec: 07/24/18 09:00 YNB2549 ICU-C12) Document 07/24/18 10:00 MXY7124 (Rec: 07/24/18 11:47 QXI1300 ICU-C12) Document 07/24/18 11:00 PJN1273 (Rec: 07/24/18 11:47 HKP8259 ICU-C12) Document 07/24/18 12:00 SSX9945 (Rec: 07/24/18 12:12 OVJ1602 ICU-C12) Document 07/24/18 13:00 PHW2331 (Rec: 07/24/18 13:01 DMW2582 ICU-C12) Document 07/24/18 14:00 QAF6982 (Rec: 07/24/18 14:07 JUU9718 ICU-C12) Document 07/24/18 14:14 UKD9058 (Rec: 07/24/18 14:14 EIQ0891 ICU-C12) Document 07/24/18 15:00 UKN5863 (Rec: 07/24/18 15:04 OBK5391 ICU-C12) Document 07/24/18 16:34 DQB3297 (Rec: 07/24/18 16:34 CTS0595 ICU-C12) Document 07/24/18 17:00 ZMW3002 (Rec: 07/24/18 17:52 UYI6165 ICU-M27) Document 07/24/18 17:52 KTD6284 (Rec: 07/24/18 17:52 BNL3592 ICU-M27) Document 07/24/18 19:00 IXP8706 (Rec: 07/24/18 21:01 DPS9181 ICU-C15) Document 07/24/18 20:00 ODM0954 (Rec: 07/24/18 21:01 QUP2192 ICU-C15) Document 07/24/18 21:00 DZK1677 (Rec: 07/24/18 22:21 ZBY6986 ICU-C15) Document 07/24/18 22:00 CSW7003 (Rec: 07/24/18 22:21 RFG8486 ICU-C15) Document 07/24/18 23:00 NSZ0945 (Rec: 07/24/18 23:05 VDS1794 ICU-C15) Document 07/25/18 00:00 JHM4599 (Rec: 07/25/18 00:02 JEQ7579 ICU-C15) Document 07/25/18 01:00 RYP0102 (Rec: 07/25/18 01:21 SEP9317 ICU-C15) Document 07/25/18 02:00 JIP8811 (Rec: 07/25/18 02:51 SBM2531 ICU-C15) Document 07/25/18 03:00 QCX0740 (Rec: 07/25/18 04:28 ZKA2262 ICU-C15) Document 07/25/18 04:00 EFG4212 (Rec: 07/25/18 04:28 NVE8676 ICU-C15) Document 07/25/18 05:00 XWS6293 (Rec: 07/25/18 05:03 ISZ5438 ICU-C15) Document 07/25/18 06:00 MVJ2196 (Rec: 07/25/18 06:26 RXV0855 ICU-M27) Document 07/25/18 06:52 YGX9123 (Rec: 07/25/18 06:52 HEI1691 ICU-L03) Document 07/25/18 07:32 NAT3082 (Rec: 07/25/18 07:32 DNV8285 ICU-M27) Document 07/25/18 08:00 FMX5850 (Rec: 07/25/18 08:11 REY1021 ICU-C25) Document 07/25/18 09:00 WUF0562 (Rec: 07/25/18 09:02 VCX9678 ICU-M27) Document 07/25/18 10:00 SUK7681 (Rec: 07/25/18 10:33 GKR2589 ICU-M27) Document 07/25/18 12:00 YMN1128 (Rec: 07/25/18 12:28 BQF7016 ICU-M27) Document 07/25/18 13:00 HDG1823 (Rec: 07/25/18 13:27 VHQ3131 ICU-C06) Document 07/25/18 14:00 QSJ3130 (Rec: 07/25/18 14:50 YWI1326 ICU-M27) Document 07/25/18 15:00 VZV1587 (Rec: 07/25/18 15:25 AMV5468 ICU-C25) Document 07/25/18 16:48 IKX5886 (Rec: 07/25/18 16:48 UOJ5142 ICU-M27) Document 07/25/18 18:03 YYU0205 (Rec: 07/25/18 18:03 EQW5663 ICU-C25) Labs: Laboratory Results - last 24 hr 07/25/18 07/25/18 07/25/18 05:55 05:55 05:55 WBC 16.5 H RBC 3.14 L Hgb 9.5 L Hct 29 L MCV 92 MCH 30 MCHC 33 RDW 15 Plt Count 265 MPV 9.0 Sodium 151 H Potassium 2.6 L* Chloride 111 Carbon Dioxide 31 Anion Gap 9 BUN 76 H Creatinine 1.24 H Est GFR ( Amer) 50.5 Est GFR (Non-Af Amer) 41.7 BUN/Creatinine Ratio 61.3 H Glucose 160 H Calcium 9.1 Phosphorus 2.3 L Magnesium 2.1 Total Bilirubin 0.90 AST 63 H ALT 39 Alkaline Phosphatase 219 H B-Natriuretic Peptide > 1300 H Total Protein 6.1 L Albumin 2.9 L Globulin 3.2 Albumin/Globulin Ratio 0.9 L 07/25/18 17:15 WBC RBC Hgb Hct MCV MCH MCHC RDW Plt Count MPV Sodium 154 H Potassium 3.3 L Chloride 112 H Carbon Dioxide 34 H Anion Gap 8 BUN 73 H Creatinine 1.16 H Est GFR ( Amer) 54.5 Est GFR (Non-Af Amer) 45.1 BUN/Creatinine Ratio 62.9 H Glucose 170 H Calcium 9.1 Phosphorus 1.7 L Magnesium 2.0 Total Bilirubin AST ALT Alkaline Phosphatase B-Natriuretic Peptide Total Protein Albumin Globulin Albumin/Globulin Ratio Studies: 07/25 CXR: Increased bilateral alveolar opacities suggestive of multifocal pneumonia Nutrition: TF glucerna at goal of 35 cc/h FWF 100 cc/ q4h Impression: 77 yo F with 3 day history of shortness of breath, chest pain, nausea and vomiting after eating at [employer]. Initially seen in ED on 07/15 and workup felt consistent with acute viral infection. Returns to ED on 07/17 for worsening shortness of breath. CXR shows new LLL, WBC elevated. Admitted with multifocal community acquired pneumonia and septic shock. LFTs elevated on admission but improving. Now with LANIE on CKD. Acute encephalopathy multifocal pneumonia acute ventilator dependence Acute respiratory failure due to hypoxemia Severe metabolic and electrolyte derrangements Plan: Cardiovascular: (1) Septic shock, resolved (2) Pacemaker in situ; (3) NSTEMI, demand mediated; (4) Chronic Benign essential HTN -- Telemetry -- TTE, 07/19: Hyperdynamic LVEF -- ASA -- atorvastatin -- Atenolol -- PRN hydralazine for goal SBP < 160 -- scheduled Lasix for diuresis, change to gtt Home meds: Warfarin, Atenolol, Atorvastatin Pulmonary: (1) Multifocal pneumonia (2) acute hypoxic respiratory failure requiring intubation; (3) Prolonged vent dependence did not tolerated SBT today 07/25 daily SBT/SWT and sedation vacation trials continue with bolus diuretics started aztreonam and vancomycin today 07/25 follow up mini bal cx 07/25 Gastrointestinal: (1) Acute nausea and vomiting, resolved; (2) Hyperbilirubinemia/elevated LFTs, improving; Elevated Alk phos improving (3) hx of constipation/diarrhea and nausea over the past 9+ months -- US gall bladder: 8mm wall, but no surrounding fat stranding or pericholecystic fluid, plan for HIDA electively when clinically improved to assess for chronic condition, family updated on need for outpatient followup with PCP -- diet: TF, advancing to goal -- bowel regimen: None -- ulcer prophylaxis: Protonix -- Zofran as needed for vomiting -- no clinical s/sx suggestive of acute concerning biliary pathology. LFTs and AP improving. Check in AM with GGT Home meds: Omeprazole, Zofran Endocrine: (1) hx of thyroid cancer s/p thyroidectomy and radiation; (2) Hyperglycemia -- monitor BGs -- SSI -- Synthroid Home meds: Synthroid Renal: (1) chronic stress incontinence; (2) LANIE on Chronic kidney disease; improving Cr (3) Severe electrolyte derrangements with hypernatremia, hypokalemia likely due to overdiuresis will need diuresis. Discontinued continuous lasix at 10 mg/hr. Start lasix 60 mg BID this evening Aggressive K+ replacement with IV and oral replacement. Daily KCL 40 meq enterally ordered Check Mg and Phos daily as well with BMP FWF at 100cc q4h for rising Na+ Home meds: None Infectious disease: (1) Multifocal bilateral community acquired pneumonia; (2) Sepsis; abx as per in respiratory section Home meds: PRN Valacyclovir Neurologic: (1) Acute metabolic encephalopathy; (2) chronic back and shoulder pain; (3) chronic bilateral leg neuropathy; (4) chronic headaches; (5) Quesiton of seizure activity determined to NOT be seizures -- will discontinue Precedex gtt - start propofol gtt -- PRN Fentanyl for pain control -- PRN Tylenol for fevers -- Neurology consult appreciated -- Lexapro -- will start nightly seroquel 07/25 Home meds: Lexapro, [place] Hematological: (1) Anemia stable H/H -- DVT prophylaxis: SQ Heparin -- ASA Home meds: Warfarin Deep vein thrombosis prophylaxis: SQ Heparin Dietary: Protonix Condition: critical Prognosis: guarded Code status: full Disposition: continue ICU care Cumulative time spent in the care of this patient (excluding any procedure time) : at least 40 minutes. Patient care included clinical interview (with patient and/or family), bedside exam of the patient, review of labs, x-rays, and other ancillary data, coordination of (respiratory, nursing care, review of patient's records, discussion regarding patients management with involved consultants, primary physician, pharmacists, and other healthcare personnel (dietary, case management , physical/occupational therapy etc.)
[2018-07-25] MEDS: Furosemide IV* 10 MG/ML 10 ML VIAL (100 MG) IV SCH (19:55)
[2018-07-25] MEDS ORDERED: QUEtiapine TAB* 25 MG PO SCH (21:00)
[2018-07-25] MEDS: Atorvastatin* 80 MG TAB PO SCH (21:37)
[2018-07-26] MEDS: Chlorhexidine MOUTHWASH 0.12%* 15 ML UDC TOPICAL SCH ×7 (00:06→23:27)
[2018-07-26] MEDS: Vancomycin(*) 750 MG in NS 0.9% 250 ML* 250 ML IVPB SCH ×3 (00:06→23:27)
[2018-07-26] MEDS: Metoclopramide IV* 5 MG/ML 2 ML VIAL IV SLOW PU SCH ×2 (00:07→06:28)
[2018-07-26] MEDS: Albuterol/Ipratropium NEB.SOL* Albuterol 2.5 MG/Ipratropium 0.5 MG 3 ML INH SCH ×4 (01:21→19:21)
[2018-07-26] MEDS: Propofol* 100 ML IV ONE (01:35)
[2018-07-26] MEDS: Acetaminophen ADULT LIQ* 650 MG/20.3 ML UDC PO PRN (02:36)
[2018-07-26 05:39] LABS: Hematocrit 30 % (35-47); Hemoglobin 10.1 g/dl (12.0-16.0); Mean Corpuscular HGB Conc 33 g/dl (31-36); Mean Corpuscular Hemoglobin 31 pg (27-31); Mean Corpuscular Volume 93 fL (80-97); Platelet Count 355 10^3/ul (150-450); Red Blood Count 3.24 10^6/ul (4.00-5.40); Red Cell Distribution Width 15 % (10.5-15); White Blood Count 23.5 10^3/ul (3.5-10.8)
[2018-07-26 05:47] LABS: Albumin/Globulin Ratio 1.1 (1-3); BUN/Creatinine Ratio 69.8 (8-20); Calcium 8.8 mg/dL (8.6-10.3); EGFR African American 67.8 (>60); EGFR Non-African American 56.1 (>60); Globulin 2.8 g/dL (2-4); Phosphorus 2.2 mg/dL (2.5-5.0); Potassium 3.2 mmol/L (3.5-5.0); Total Bilirubin 0.8 mg/dL (0.2-1.0); Total Protein 5.8 g/dL (6.4-8.9)
[2018-07-26] MEDS: Levothyroxine TAB* 150 MCG TAB PO SCH (06:28)
[2018-07-26] MEDS: Aztreonam (*) 2 GM in NS 0.9% 50 ML* 50 ML IVPB SCH (07:46)
[2018-07-26] MEDS ORDERED: Dextrose 50% Syringe 50 ML* 25 GM/50 ML SYRINGE IV PUSH PRN (08:22)
[2018-07-26] MEDS ORDERED: Potassium Phosphate IV* 15 MMOLE in NS 0.9% 250 ML* 250 ML IVPB ONE (09:00)
[2018-07-26] MEDS ORDERED: D5W 500 ML BAG* 500 ML IV SCH ×2 (09:00→15:38)
[2018-07-26] MEDS: Heparin VIAL(*) 5000 UNITS/ML VIAL (FIVE THOUSAND) SUBCUT SCH (09:15)
[2018-07-26] MEDS: Citalopram TAB* 20 MG PO SCH (09:17)
[2018-07-26] MEDS: Atenolol TAB* 25 MG PO SCH ×2 (09:17→21:19)
[2018-07-26] MEDS: Aspirin 81 mg CHEW TAB* 81 MG TAB.CHEW PO SCH (09:17)
[2018-07-26] MEDS: Potassium Chloride LIQUID* 20 MEQ PACKET PO SCH (09:17)
[2018-07-26] MEDS: Pantoprazole IV* 40 MG IV SCH (09:23)
[2018-07-26] MEDS: KCL 20 MEQ/100 ML IVPREMIX* 20 MEQ/100 ML BAG IV SCH ×3 (09:27→14:30)
--- NOTE | 2018-07-26 09:54 | PN ---
Date of Service: 07/26/18 Critical Care Services: 78F with htn, hld, dm, cad, s/p ppm, thyroid ca s/p chemo/rt, on warfarin at home intially presented with abd pain/nausea/vomting. Had PNA. Was intubated. 07/18: Overnight she required the initiation of Levophed to maintain MAPs > 65. This AM she had a second episode of lower extremity extention with twitching and periorbital twitching. Given Ativan and Keppra load and EEG ordered. Evaluated by Neurology, once sedation off patient following commands during episodes and EEG negative thus not seizure activity. No need for ongoing antiepileptics. GI consulted for elevated LFTs and findings of thickened gallbladder wall. Plan of possible ERCP on 07/19. Weaned off pressors by afternoon, but restarted in evening to keep MAPs > 65 07/19: Low urine output overnight. Bolused 1L NS. LFTs improved. Seen by GI, no need for intervention at this time. UOP decreased, BNP elevated, Lasix x 1 given. 07/20: Given Lasix x 2 for low urine output and volume overload. On minimal pressors (1-3 mcg/min Levophed). TF started. 07/21: Tolerated spontaneous breathing trial x 12 hours. Slow to awaken during sedation vacation. Vasopressors weaned off. 07/22: Tolerated spontaneous breathing trial during day. Beginning to arouse. Given albumin for oliguria with improvement 07/23: Began auto-diuresing overnight. Following commands. Tolerating PS throughout day. 07/25: did not tolerate SBT due to tachypnea. Agitated off precedex. No other overnight events. 07/26: Lab work with significant hypernatremia. WBC increasing. Febrile yesterday. Poor mental status. Vital Signs: Temp Pulse Resp BP SpO2 FiO2 99.0 F 70 21 175/83 95 40 07/26/18 09:00 07/26/18 09:00 07/26/18 08:00 07/26/18 08:01 07/26/18 09:00 07/26 07:51 Physical Exam: Gen - intubated, not following commands, anasarca heent - ncat, perrl neck - no jvd cv - s1/s2, no murmur lungs - cta abd - soft, nt ext - anasarca, +swelling in LUE worse than right neuro - not following commands off sedation Fluid Balance (Past 24 Hours): I= O= Net Intake & Output 07/24/18 07/25/18 07/26/18 07/27/18 06:59 06:59 06:59 06:59 Intake Total 2940.5 2060.2 3362.1 Output Total 2018 4858 4818 300 Balance 921.5 -2797.8 -1455.9 -300 Weight 77.201 kg 80.2 kg 78.9 kg Intake: IV Fluids 83.5 141.5 599.1 Albumin 40 NS 43.5 141.5 599.1 IVPB 428 98 685 Albumin 100 Antibiotics 685 Azithromycin 270 CEFTRIAXONE 58 NS 98 Medicated IV 207.0 437.7 253.0 GEN - Furosemide/Lasix 172.8 45 Precedex 207.0 164.9 90 potassium 100 propofol 118.0 Tube Feeding 8512 078 9014 Tube Feeding Flush Amount 581 422 636 Albumin 81 NG Tube Irrigate Amount 90 285 Output: Walsh 189 4858 4818 300 Tube Feeding Residual 125 Amount Wasted Other: Estimated Stool Amount Large Labs: Laboratory Results - last 24 hr 07/25/18 07/26/18 07/26/18 17:15 05:15 05:15 WBC RBC Hgb Hct MCV MCH MCHC RDW Plt Count MPV Sodium 154 H 155 H Potassium 3.3 L 3.2 L Chloride 112 H 113 H Carbon Dioxide 34 H 36 H Anion Gap 8 6 BUN 73 H 67 H Creatinine 1.16 H 0.96 H Est GFR ( Amer) 54.5 67.8 Est GFR (Non-Af Amer) 45.1 56.1 BUN/Creatinine Ratio 62.9 H 69.8 H Glucose 170 H 165 H POC Glucose (mg/dL) Calcium 9.1 8.8 Phosphorus 1.7 L 2.2 L Magnesium 2.0 2.0 Total Bilirubin 0.80 GGT 68 H AST 42 H ALT 32 Alkaline Phosphatase 168 H B-Natriuretic Peptide > 1300 H Total Protein 5.8 L Albumin 3.0 L Globulin 2.8 Albumin/Globulin Ratio 1.1 07/26/18 07/26/18 05:15 09:03 WBC 23.5 H RBC 3.24 L Hgb 10.1 L Hct 30 L MCV 93 MCH 31 MCHC 33 RDW 15 Plt Count 355 MPV 9.0 Sodium Potassium Chloride Carbon Dioxide Anion Gap BUN Creatinine Est GFR ( Amer) Est GFR (Non-Af Amer) BUN/Creatinine Ratio Glucose POC Glucose (mg/dL) 175 H Calcium Phosphorus Magnesium Total Bilirubin GGT AST ALT Alkaline Phosphatase B-Natriuretic Peptide Total Protein Albumin Globulin Albumin/Globulin Ratio Studies: Gallbladder US 07/17 IMPRESSION: #. Incompletely distended gallbladder is remarkable for nonspecific wall thickening which may be due to primary gallbladder pathology or primary hepatic disease. No visualized gallstones or biliary sludge. Negative for biliary dilatation. #. No sonographic abnormality of the liver evident. Brain CT 07/17 IMPRESSION: 1. No acute intracranial abnormality. 2. Mild chronic small vessel ischemic disease. CT abd/pel 07/17 IMPRESSION: 1. Multifocal pneumonia. 2. No etiology for patient's elevated LFTs. 3. Nonspecific left perirenal/armani-adrenal stranding without other findings to suggest pyelonephritis. CXR 07/25 IMPRESSION: 1. LINES AND TUBES ABOVE. 2. PROGRESSION OF MULTIFOCAL CONSOLIDATION. TTE 07/19 Conclusions The study is technically limited due to patient being intubated and on a ventilator. The left ventricular chamber size is normal. The left ventricle appears overall hyperdynamic, EF Greater Than 65%, septal dyskinesis and relative hypokinesis of the base of the inferior wall. The right ventricular global systolic function is hyperdynamic. There is a trace of mitral regurgitation. There is mild tricuspid regurgitation. Compared with prior echo of 08/12/17, EF stable, basilar inferior hypokinesis new, septal abnormalities seen previously, prior EF was 60-65%, valve function is not significantly changed. Impression: 78F with htn, hld, dm, cad, s/p ppm, thyroid ca s/p chemo/rt, on warfarin at home intially presented with abd pain/nausea/vomting. Had PNA. Was intubated. Plan: Neuro - AMS - not moving left arm - check head ct - possible MRI brain based on results CV - htn, hld, cad, s/p ppm - restart anti-hypertensives - has had neg fluid balance over past 2 days - new hypokinesis on TTE likely 2/2 sepsis - lovenox for AC after head ct and picc line placement today - c/w asa/statin Pulm - hypoxic respiratory failure - 2/2 pna/copd - cxr with worsening pna - plan for bronchoscopy with bal today - wean vent as tolerated - nebq q6 ID - sepsis - shock resolved - increasing wbc/febrile - CAUTI vs CLABSI vs HCAP vs C diff - send stool c diff - check ua/uc - repeat blood cultures - remove femoral TLC and culture tip - c/w vanc/aztreonam for now GI - tubes feeds renal - hypernatremia, hypokalemia, jana - creatinine improving - replete electrolytes - d5w for 500cc and repeat bmp heme - monitor cbc endo - dm - check fs, niss lines - change fem tlc for picc today ppx - gi/dvt full code Daughter update via telephone this am. Critical Care Time: 70 mins
[2018-07-26] MEDS: Insulin LISPRO* 1 UNITS UNIT SUBCUT SCH ×3 (12:38→21:18)
[2018-07-26] MEDS ORDERED: fentaNYL* 50 MCG/ML 2 ML VIAL (100 MCG VIAL) ONE (14:20)
[2018-07-26] MEDS ORDERED: Midazolam* 1 MG/ML 2 ML VIAL (2 MG) IV SLOW PU ONE (14:29)
[2018-07-26] MEDS ORDERED: fentaNYL* 50 MCG/ML 2 ML VIAL (100 MCG VIAL) IV SLOW PU ONE (14:29)
--- NOTE | 2018-07-26 14:32 | OP ---
Operative Report - Blank - Operative Report Date of Operation: 07/26/18 Note: Bronchoscopy Procedure Note Date: 07/26/18 Time: 230pm Indication: Pneumonia Sedation: versed 2mg ivp, fentanyl 50mcg ivp Procedure: Bronchoscope introduced via ET tube. Passed to the right upper lobe. BAL performed. Scope removed. Patient tolerated the procedure without immeadiate complication
[2018-07-26 15:28] LABS: BUN/Creatinine Ratio 82.2 (8-20); Calcium 8.9 mg/dL (8.6-10.3); EGFR African American 93.1 (>60); EGFR Non-African American 76.9 (>60); Magnesium 1.9 mg/dL (1.9-2.7); Phosphorus 1.8 mg/dL (2.5-5.0); Potassium 3.8 mmol/L (3.5-5.0)
[2018-07-26] MEDS: Aztreonam (*) 2 GM in NS 0.9% 100 ML* 100 ML IVPB SCH ×2 (15:42→23:27)
[2018-07-26] MEDS: Enoxaparin(*) 80 MG/0.8 ML SYR SUBCUT SCH (17:45)
[2018-07-26] MEDS: Atorvastatin* 80 MG TAB PO SCH (21:20)
[2018-07-26] MEDS ORDERED: NS 0.9% 100 ML* 100 ML ONE (23:18)
[2018-07-26] MEDS ORDERED: NS 0.9% 250 ML* 250 ML ONE (23:18)
[2018-07-27] MEDS: Insulin LISPRO* 1 UNITS UNIT SUBCUT SCH ×6 (00:03→22:56)
[2018-07-27] MEDS: Albuterol/Ipratropium NEB.SOL* Albuterol 2.5 MG/Ipratropium 0.5 MG 3 ML INH SCH ×4 (00:26→19:27)
[2018-07-27 00:35] LABS: Hematocrit 24 % (35-47); Mean Corpuscular HGB Conc 33 g/dl (31-36); Mean Corpuscular Hemoglobin 31 pg (27-31); Mean Corpuscular Volume 95 fL (80-97); Mean Platelet Volume 8.6 fL (7.4-10.4); Platelet Count 307 10^3/ul (150-450); Red Blood Count 2.58 10^6/ul (4.00-5.40); Red Cell Distribution Width 15 % (10.5-15); White Blood Count 16.5 10^3/ul (3.5-10.8)
[2018-07-27 00:45] LABS: BUN/Creatinine Ratio 88.6 (8-20); Calcium 6.5 mg/dL (8.6-10.3); EGFR African American 166.9 (>60); EGFR Non-African American 137.9 (>60); Magnesium 1.4 mg/dL (1.9-2.7); Phosphorus 1.6 mg/dL (2.5-5.0); Potassium 2.8 mmol/L (3.5-5.0)
[2018-07-27 01:04] LABS: Immature Granulocytes 2 % (0-9); Lymphocytes % 4 %; Metamyelocytes % 1 % (0-2); Monocytes % 6 %; Myelocytes % 1 % (0-1); Neutrophil % 88 %
[2018-07-27 01:06] LABS: Nucleated Red Blood Cells/100 1 (0-0)
[2018-07-27 01:07] LABS: Polychromasia 1+
[2018-07-27 01:10] LABS: ABS Basophils 0 10^3/ul (0-0.2); ABS Eosinophils 0.1 10^3/ul (0-0.6); ABS Lymphocytes 0.8 10^3/ul (1.0-4.8); ABS Monocytes 1.1 10^3/ul (0-0.8); ABS Neutrophils 14.4 10^3/ul (1.5-7.7); ABS Nucleated RBC 0 10^3/ul
[2018-07-27] MEDS: Chlorhexidine MOUTHWASH 0.12%* 15 ML UDC TOPICAL SCH ×5 (06:16→22:57)
[2018-07-27] MEDS: Enoxaparin(*) 80 MG/0.8 ML SYR SUBCUT SCH ×2 (06:24→17:35)
[2018-07-27] MEDS: Levothyroxine TAB* 150 MCG TAB PO SCH (06:25)
[2018-07-27] MEDS ORDERED: Magnesium Sulfate IV* 3 GM in NS 0.9% 100 ML* 100 ML IVPB ONE (07:17)
[2018-07-27] MEDS ORDERED: NS 0.9% 100 ML* 100 ML ONE ×2 (07:36)
[2018-07-27] MEDS: Aztreonam (*) 2 GM in NS 0.9% 100 ML* 100 ML IVPB SCH ×3 (07:48→22:58)
[2018-07-27] MEDS ORDERED: Potassium Phosphate IV* 15 MMOLE in NS 0.9% 250 ML* 250 ML IVPB ONE (07:50)
[2018-07-27] MEDS: KCL 20 MEQ/100 ML IVPREMIX* 20 MEQ/100 ML BAG IV SCH ×3 (07:50→15:15)
[2018-07-27] MEDS: Atenolol TAB* 25 MG PO SCH ×2 (08:04→22:57)
[2018-07-27] MEDS: Potassium Chloride LIQUID* 20 MEQ PACKET PO SCH (08:04)
[2018-07-27] MEDS: Citalopram TAB* 20 MG PO SCH (08:04)
[2018-07-27] MEDS: amLODIPine TAB* 5 MG PO SCH (08:04)
[2018-07-27] MEDS: Aspirin 81 mg CHEW TAB* 81 MG TAB.CHEW PO SCH (08:06)
[2018-07-27] MEDS: Pantoprazole IV* 40 MG IV SCH (08:10)
--- NOTE | 2018-07-27 08:26 | PN ---
Date of Service: 07/27/18 Critical Care Services: 78F with htn, hld, dm, cad, s/p ppm, thyroid ca s/p chemo/rt, on warfarin at home intially presented with abd pain/nausea/vomting. Had PNA. Was intubated. 07/18: Overnight she required the initiation of Levophed to maintain MAPs > 65. This AM she had a second episode of lower extremity extention with twitching and periorbital twitching. Given Ativan and Keppra load and EEG ordered. Evaluated by Neurology, once sedation off patient following commands during episodes and EEG negative thus not seizure activity. No need for ongoing antiepileptics. GI consulted for elevated LFTs and findings of thickened gallbladder wall. Plan of possible ERCP on 07/19. Weaned off pressors by afternoon, but restarted in evening to keep MAPs > 65 07/19: Low urine output overnight. Bolused 1L NS. LFTs improved. Seen by GI, no need for intervention at this time. UOP decreased, BNP elevated, Lasix x 1 given. 07/20: Given Lasix x 2 for low urine output and volume overload. On minimal pressors (1-3 mcg/min Levophed). TF started. 07/21: Tolerated spontaneous breathing trial x 12 hours. Slow to awaken during sedation vacation. Vasopressors weaned off. 07/22: Tolerated spontaneous breathing trial during day. Beginning to arouse. Given albumin for oliguria with improvement 07/23: Began auto-diuresing overnight. Following commands. Tolerating PS throughout day. 07/25: did not tolerate SBT due to tachypnea. Agitated off precedex. No other overnight events. 07/26: Lab work with significant hypernatremia. WBC increasing. Febrile yesterday. Poor mental status. 07/27: s/p bronch yesterday. fem tlc switched to picc. LUE doppler with dvt. lovenox started. ct head neg. Still not moving left side. Will send for MRI brain. Vital Signs: Temp Pulse Resp BP SpO2 FiO2 100.6 F 72 28 180/90 98 35 07/27/18 07:01 07/27/18 07:35 07/27/18 07:35 07/27/18 07:01 07/27/18 07:35 07/27 07:35 Physical Exam: Gen - intubated, not following commands, anasarca heent - ncat, perrl neck - no jvd cv - s1/s2, no murmur lungs - cta, +ronchi abd - soft, nt ext - anasarca, +swelling in LUE worse than right neuro - not moving left side. able to squeeze my fingers with right hand on command. has forehead twitch. Fluid Balance (Past 24 Hours): I= O= Net Intake & Output 07/25/18 07/26/18 07/27/18 07/28/18 06:59 06:59 06:59 06:59 Intake Total 2060.2 3362.1 3612.5 0 Output Total 4858 4818 1775 350 Balance -2797.8 -1455.9 1837.5 -350 Weight 80.2 kg 78.9 kg 77.4 kg Intake: IV Fluids 141.5 599.1 1029.5 D5W 328 NS 141.5 599.1 10 Normal Saline 691.5 IVPB 98 685 791 Antibiotics 685 D5W 314 NS 98 250 Normal Saline 227 Medicated IV 437.7 253.0 GEN - Furosemide/Lasix 172.8 45 Precedex 164.9 90 potassium 100 propofol 118.0 Oral 0 Tube Feeding 595 1189 977 Tube Feeding Flush Amount 422 636 650 Albumin 81 NG Tube Irrigate Amount 285 165 Output: Walsh 4858 4818 1775 350 Other: Estimated Stool Amount Large Labs: Laboratory Results - last 24 hr 07/26/18 07/26/18 07/26/18 09:03 12:37 14:17 WBC RBC Hgb Hct MCV MCH MCHC RDW Plt Count MPV Neut % (Auto) Lymph % (Auto) Meagher % (Auto) Eos % (Auto) Baso % (Auto) Absolute Neuts (auto) Absolute Lymphs (auto) Absolute Monos (auto) Absolute Eos (auto) Absolute Basos (auto) Absolute Nucleated RBC Immature Gran % Neutrophils % Lymphocytes % Monocytes % Metamyelocytes % Myelocytes % Nucleated RBC % Nucleated RBCs/100 WBC Normal RBC Morphology Polychromasia Anisocytosis Sodium 157 H* Potassium 3.8 Chloride 117 H Carbon Dioxide 34 H Anion Gap 6 BUN 60 H Creatinine 0.73 Est GFR ( Amer) 93.1 Est GFR (Non-Af Amer) 76.9 BUN/Creatinine Ratio 82.2 H Glucose 149 H POC Glucose (mg/dL) 175 H 124 H Calcium 8.9 Phosphorus 1.8 L Magnesium 1.9 Triglycerides 07/26/18 07/26/18 07/26/18 15:40 20:35 23:59 WBC RBC Hgb Hct MCV MCH MCHC RDW Plt Count MPV Neut % (Auto) Lymph % (Auto) Meagher % (Auto) Eos % (Auto) Baso % (Auto) Absolute Neuts (auto) Absolute Lymphs (auto) Absolute Monos (auto) Absolute Eos (auto) Absolute Basos (auto) Absolute Nucleated RBC Immature Gran % Neutrophils % Lymphocytes % Monocytes % Metamyelocytes % Myelocytes % Nucleated RBC % Nucleated RBCs/100 WBC Normal RBC Morphology Polychromasia Anisocytosis Sodium Potassium Chloride Carbon Dioxide Anion Gap BUN Creatinine Est GFR ( Amer) Est GFR (Non-Af Amer) BUN/Creatinine Ratio Glucose POC Glucose (mg/dL) 159 H 159 H 138 H Calcium Phosphorus Magnesium Triglycerides 07/27/18 07/27/18 07/27/18 00:05 00:05 05:52 WBC 16.5 H RBC 2.58 L Hgb 8.0 L Hct 24 L MCV 95 MCH 31 MCHC 33 RDW 15 Plt Count 307 MPV 8.6 Neut % (Auto) Not Reportable Lymph % (Auto) Not Reportable Meagher % (Auto) Not Reportable Eos % (Auto) Not Reportable Baso % (Auto) Not Reportable Absolute Neuts (auto) 14.4 H Absolute Lymphs (auto) 0.8 L Absolute Monos (auto) 1.1 H Absolute Eos (auto) 0.1 Absolute Basos (auto) 0 Absolute Nucleated RBC 0 Immature Gran % 2 Neutrophils % 88 Lymphocytes % 4 Monocytes % 6 Metamyelocytes % 1 Myelocytes % 1 Nucleated RBC % Not Reportable Nucleated RBCs/100 WBC 1 H Normal RBC Morphology Not Reportable Polychromasia 1+ Anisocytosis 1+ Sodium 152 H Potassium 2.8 L Chloride 120 H Carbon Dioxide 27 Anion Gap 5 BUN 39 H Creatinine 0.44 L Est GFR ( Amer) 166.9 Est GFR (Non-Af Amer) 137.9 BUN/Creatinine Ratio 88.6 H Glucose 98 POC Glucose (mg/dL) 137 H Calcium 6.5 L Phosphorus 1.6 L Magnesium 1.4 L Triglycerides 120 Studies: Gallbladder US 07/17 IMPRESSION: #. Incompletely distended gallbladder is remarkable for nonspecific wall thickening which may be due to primary gallbladder pathology or primary hepatic disease. No visualized gallstones or biliary sludge. Negative for biliary dilatation. #. No sonographic abnormality of the liver evident. Brain CT 07/17 IMPRESSION: 1. No acute intracranial abnormality. 2. Mild chronic small vessel ischemic disease. CT abd/pel 07/17 IMPRESSION: 1. Multifocal pneumonia. 2. No etiology for patient's elevated LFTs. 3. Nonspecific left perirenal/armani-adrenal stranding without other findings to suggest pyelonephritis. CXR 07/25 IMPRESSION: 1. LINES AND TUBES ABOVE. 2. PROGRESSION OF MULTIFOCAL CONSOLIDATION. TTE 07/19 Conclusions The study is technically limited due to patient being intubated and on a ventilator. The left ventricular chamber size is normal. The left ventricle appears overall hyperdynamic, EF Greater Than 65%, septal dyskinesis and relative hypokinesis of the base of the inferior wall. The right ventricular global systolic function is hyperdynamic. There is a trace of mitral regurgitation. There is mild tricuspid regurgitation. Compared with prior echo of 08/12/17, EF stable, basilar inferior hypokinesis new, septal abnormalities seen previously, prior EF was 60-65%, valve function is not significantly changed. Brain CT 07/26 Impression: No evidence for gross acute infarct, mass effect, or hemorrhage. Impression: 78F with htn, hld, dm, cad, s/p ppm, thyroid ca s/p chemo/rt, on warfarin at home intially presented with abd pain/nausea/vomting. Had PNA. Was intubated. Plan: Neuro - AMS - not moving left arm - head ct negative - check MRI brain CV - htn, hld, cad, s/p ppm - start norvasc and lisinopril for elevated bp - has had neg fluid balance over past 2 days - new hypokinesis on TTE likely 2/2 sepsis - c/w asa/statin/betablocker Pulm - hypoxic respiratory failure - 2/2 pna/copd - cxr with worsening pna - s/p bronch - wean vent as tolerated - nebs q4 ID - sepsis - shock resolved - elevated wbc/+fever - CAUTI vs CLABSI vs HCAP vs C diff - send stool c diff - ua negative - repeat blood cultures pending - fem line removed - c/w vanc/aztreonam for now GI - tubes feeds renal - hypernatremia, hypokalemia, jana - creatinine improving - replete electrolytes - d5w for 500cc and repeat bmp heme - LUE DVT - started on lovenox endo - dm - check fs, niss lines - rue picc ppx - gi/dvt full code Critical Care Time: 70 mins
[2018-07-27] MEDS ORDERED: Lisinopril TAB* 10 MG PO SCH (09:00)
--- NOTE | 2018-07-27 09:41 | PN ---
Subjective Date of Service: 07/27/18 Length of Stay: 10 Days Interval History: I was asked to re-evaluate the patient today for left sided weakness. The patient was previously seen by Dr. Chand for an episode of "shaking" which was captured on EEG and NOT associated with any epileptiform activity. EEG consistent with diffuse encephalopathy. Briefly she is a 78 year old with a history of HTN, A.fib? with PM (2004), DM, CAD, Thyroid cancer status post chemo , recent LUE DVT now on Lovenox, admitted with PNA, intubated, until yesterday was on sedation. Initially, she did require pressors and review of her prior vitals showed an episode of SBP in the 80s but no sustained hypotension. She has since been weaned off pressures and has most recently been hypertensive. She has been off and on sedation throughout her stay and has been slow to wake up, but has been off of sedative for over 24 hours. This morning, it was noted that she was not moving her left arm. She will wake up and move her right side. There is concern for possible stroke. It was also noted she had some "twitching" in her eyes but no generalized tonic-clonic activity reported. She had a head CT which showed no acute issues. CT: no acute changes, atrophy noted ECHO: EF > 65%. Technically limited study. Objective Active Medications: Acetaminophen (Tylenol Adult Liq*) 650 mg PO Q6H PRN PRN Reason: FEVER Last Admin: 07/26/18 02:36 Dose: 650 mg Albuterol/Ipratropium (Duoneb (Albuterol 2.5 Mg/Ipratropium 0.5 Mg)) 1 neb INH [id number] AWAKE [facility] Last Admin: 07/27/18 07:33 Dose: 1 neb Amlodipine Besylate (Norvasc Tab*) 10 mg PO DAILY [facility] Last Admin: 07/27/18 08:04 Dose: 10 mg Aspirin (Aspirin 81 Mg Chew Tab*) 81 mg PO DAILY [facility] Last Admin: 07/27/18 08:06 Dose: 81 mg Atenolol (Tenormin Tab*) 25 mg PO BID [facility] Last Admin: 07/27/18 08:04 Dose: 25 mg Atorvastatin Calcium (Lipitor*) 80 mg PO 2100 [facility] Last Admin: 07/26/18 21:20 Dose: 80 mg Chlorhexidine Gluconate (Peridex Mouth Wash 0.12%*) 15 ml TOPICAL Q4H [facility] Last Admin: 07/27/18 07:50 Dose: 15 ml Citalopram Hydrobromide (Celexa Tab*) 20 mg PO DAILY [facility] Last Admin: 07/27/18 08:04 Dose: 20 mg Dextrose (D50w Syringe 50 Ml*) 12.5 gm IV PUSH .FOR FS < 60 - SS PRN PRN Reason: FS < 60 Enoxaparin Sodium (Lovenox(*)) 80 mg SUBCUT Q12H [facility] Last Admin: 07/27/18 06:24 Dose: 80 mg Heparin Sodium (Porcine) (Heparin Flush Picc/Ml/Cvc(*)) 1 - 3 ml FLUSH 0600, 1800 [facility]; Protocol Last Admin: 07/27/18 06:24 Dose: 1 ml Vancomycin HCl 750 mg/ Sodium (Chloride) 250 mls @ 166.667 mls/hr IVPB Q12H [facility] Last Admin: 07/26/18 23:27 Dose: 166.667 mls/hr Aztreonam 2 gm/ Sodium (Chloride) 100 mls @ 100 mls/hr IVPB 0700,1500,2300 [facility] Last Admin: 07/27/18 07:48 Dose: 100 mls/hr Potassium Chloride (Potassium Chloride 20 Meq/100 Ml Ivpremix*) 20 meq in 100 mls @ 50 mls/hr IV Q2H [facility] Stop: 07/27/18 13:59 Last Admin: 07/27/18 07:50 Dose: 50 mls/hr Dextrose (D5w 500 Ml Bag*) 500 mls @ 75 mls/hr IV PER RATE [facility] Potassium Phosphate 15 mmole/ (Sodium Chloride) 255 mls @ 42 mls/hr IVPB ONCE ONE Stop: 07/27/18 13:54 Insulin Human Lispro (Humalog*) 0 units SUBCUT FS Q4 ICU [facility]; Protocol Last Admin: 07/27/18 06:22 Dose: 1 units Levothyroxine Sodium (Synthroid Tab*) 150 mcg PO DAILY@0600 [facility] Last Admin: 07/27/18 06:25 Dose: 150 mcg Lisinopril (Prinivil Tab*) 10 mg PO DAILY [facility] Last Admin: 07/27/18 08:04 Dose: 10 mg Pantoprazole Sodium (Protonix Iv*) 40 mg IV DAILY [facility] Last Admin: 07/26/18 09:23 Dose: 40 mg Pharmacy Consult (Vancomycin Per Pharmacy*) 1 note FOLLOW UP . PRN PRN Reason: PER PROTOCOL Pharmacy Profile Note (Vancomycin Trough Check) 1 note FOLLOW UP 1130 ONE Stop: 07/27/18 11:31 Potassium Chloride (Klor-Con Liquid*) 40 meq PO DAILY [facility] Last Admin: 07/27/18 08:04 Dose: 40 meq Vital Signs 07/26/18 07/26/18 07/26/18 10:00 10:01 10:56 Temperature 99.0 F 99.1 F 99.3 F Pulse Rate 69 70 70 Respiratory 21 Rate Blood Pressure 179/105 172/91 (mmHg) O2 Sat by Pulse 96 96 96 Oximetry 07/26/18 07/26/18 07/26/18 11:00 11:01 12:00 Temperature 99.5 F 99.5 F 99.5 F Pulse Rate 70 68 72 Respiratory 22 20 Rate Blood Pressure 179/110 (mmHg) O2 Sat by Pulse 96 96 93 Oximetry 07/26/18 07/26/18 07/26/18 12:01 13:00 13:01 Temperature 99.5 F 99.5 F 99.5 F Pulse Rate 71 70 70 Respiratory 21 Rate Blood Pressure 149/71 147/76 (mmHg) O2 Sat by Pulse 93 95 94 Oximetry 07/26/18 07/26/18 07/26/18 14:00 14:02 14:30 Temperature 99.5 F 99.5 F Pulse Rate 70 69 Respiratory 22 14 Rate Blood Pressure 169/76 (mmHg) O2 Sat by Pulse 95 96 Oximetry 07/26/18 07/26/18 07/26/18 15:00 15:01 16:00 Temperature 99.5 F 99.5 F 99.5 F Pulse Rate 70 70 70 Respiratory 22 23 Rate Blood Pressure 177/95 (mmHg) O2 Sat by Pulse 97 97 98 Oximetry 07/26/18 07/26/18 07/26/18 16:01 17:00 17:01 Temperature 99.5 F 99.9 F 99.9 F Pulse Rate 70 69 70 Respiratory 24 Rate Blood Pressure 176/117 169/99 (mmHg) O2 Sat by Pulse 97 97 96 Oximetry 07/26/18 07/26/18 07/26/18 18:00 18:01 18:31 Temperature 100.0 F 100.0 F 100.2 F Pulse Rate 70 69 70 Respiratory 27 Rate Blood Pressure 200/87 173/103 (mmHg) O2 Sat by Pulse 97 97 98 Oximetry 07/26/18 07/26/18 07/26/18 19:00 19:01 19:26 Temperature 100.2 F 100.2 F Pulse Rate 70 70 70 Respiratory 23 18 Rate Blood Pressure 175/96 (mmHg) O2 Sat by Pulse 98 99 94 Oximetry 07/26/18 07/26/18 07/26/18 20:00 20:01 21:00 Temperature 100.2 F 100.2 F 100.4 F Pulse Rate 70 70 70 Respiratory 22 22 Rate Blood Pressure 175/101 (mmHg) O2 Sat by Pulse 97 97 96 Oximetry 07/26/18 07/26/18 07/26/18 21:01 22:00 22:01 Temperature 100.4 F 100.6 F 100.6 F Pulse Rate 70 70 70 Respiratory 20 Rate Blood Pressure 181/98 174/99 (mmHg) O2 Sat by Pulse 96 97 96 Oximetry 07/26/18 07/26/18 07/26/18 23:00 23:01 23:12 Temperature 100.8 F 100.8 F 100.8 F Pulse Rate 70 71 73 Respiratory 19 Rate Blood Pressure 188/88 (mmHg) O2 Sat by Pulse 97 97 96 Oximetry 07/27/18 07/27/18 07/27/18 00:00 00:01 00:26 Temperature 100.8 F 100.8 F Pulse Rate 69 69 70 Respiratory 20 24 Rate Blood Pressure 168/105 (mmHg) O2 Sat by Pulse 94 94 94 Oximetry 07/27/18 07/27/18 07/27/18 01:00 01:01 02:00 Temperature 100.8 F 100.6 F Pulse Rate 69 70 Respiratory 20 26 Rate Blood Pressure 173/85 (mmHg) O2 Sat by Pulse 92 91 Oximetry 07/27/18 07/27/18 07/27/18 02:01 02:08 03:00 Temperature 100.8 F 100.8 F 100.8 F Pulse Rate 70 70 70 Respiratory 28 Rate Blood Pressure 181/95 (mmHg) O2 Sat by Pulse 95 94 96 Oximetry 07/27/18 07/27/18 07/27/18 03:01 04:00 04:01 Temperature 100.8 F 100.8 F 100.9 F Pulse Rate 70 70 70 Respiratory 26 Rate Blood Pressure 186/99 170/116 (mmHg) O2 Sat by Pulse 98 95 97 Oximetry 07/27/18 07/27/18 07/27/18 05:00 05:01 06:00 Temperature 100.8 F 100.8 F 100.8 F Pulse Rate 72 70 70 Respiratory 24 22 Rate Blood Pressure 184/80 (mmHg) O2 Sat by Pulse 91 96 96 Oximetry 07/27/18 07/27/18 07/27/18 06:01 07:00 07:01 Temperature 100.8 F 100.6 F 100.6 F Pulse Rate 71 71 70 Respiratory 20 Rate Blood Pressure 183/89 180/90 (mmHg) O2 Sat by Pulse 92 96 98 Oximetry 07/27/18 07/27/18 07/27/18 07:35 08:01 09:00 Temperature 100.6 F 100.2 F Pulse Rate 72 70 74 Respiratory 28 Rate Blood Pressure 165/91 161/84 (mmHg) O2 Sat by Pulse 98 95 86 Oximetry Intake and Output Last 24 Hours 07/25/18 07/26/18 07/27/18 07/28/18 06:59 06:59 06:59 06:59 Intake Total 2060.2 3362.1 3612.5 0 Output Total 1768 4818 1775 350 Balance -2797.8 -1455.9 1837.5 -350 Weight 176 lb 12.972 oz 173 lb 15.115 oz 170 lb 10.205 oz Intake: IV Fluids 141.5 599.1 1029.5 D5W 328 NS 141.5 599.1 10 Normal Saline 691.5 IVPB 98 685 791 Antibiotics 685 D5W 314 NS 98 250 Normal Saline 227 Medicated IV 437.7 253.0 GEN - Furosemide/Lasix 172.8 45 Precedex 164.9 90 potassium 100 propofol 118.0 Oral 0 Tube Feeding 595 1189 977 Tube Feeding Flush Amount 422 636 650 Albumin 81 NG Tube Irrigate Amount 285 165 Output: Walsh 1368 4818 1775 350 Other: Estimated Stool Amount Large Oxygen Devices in Use Now: Mechanical Ventilator Neurology Exam: General: Intubated Coarse BS bilaterally RRR currently (paced) no murmurs appreciated Abdomen soft 2+ edema of the lower extremities, 1+ edema RUE, 2+ edema LUE Skin in warm and dry. Lines look good. Neurological Findings: She will awaken with verbal stimuli, will track and nods occasionally to questions. She follows simple commands. blinks to threat and holds her eyes forcefully closed. She is intubated but face appears symmetric. PERRL, EOM: looks in all quadrants. Neck is supple. Moves right upper and lower extremities on commands, squeezes hand, wiggles toes and foot but no anti- gravity. She had several twitches of her left fingers and toes to command but otherwise, flaccid left side, no significant movement. DTRs: trace UEs bilaterally, cross at the patella, absent ankles, W/D Babinski on right, equivocal on left. W/D to pain on the right and grimaces to pain with slight flexion posturing in the LUE, grimaces in the LLE. No tremors noted. Sustained twitching movements of the forehead and eyelids bilaterally Result Diagrams: 07/27/18 00:05 07/27/18 00:05 Microbiology and Other Data: Microbiology 07/26/18 14:26 Gram Stain - Final Bronch Lavage - Right Upper Lobe 07/25/18 17:15 Gram Stain - Final Sputum 07/22/18 13:18 Gram Stain - Final Sputum Sputum Culture - Final YEAST Normal Farnaz 07/17/18 16:42 Aerobic Blood Culture - Final Blood Venous No Growth Day 5 Anaerobic Blood Culture - Final No Growth Day 5 07/17/18 15:18 Aerobic Blood Culture - Final Blood Venous No Growth Day 5 Anaerobic Blood Culture - Final No Growth Day 5 07/18/18 08:00 Gram Stain - Final Sputum Trach Sputum Culture - Final No Growth Day 2 No Normal Respiratory Farnaz 07/17/18 19:48 Urine Culture - Final Urine No Growth (<1,000 CFU/mL) 07/17/18 18:08 Influenza Types A,B Antigen - Final Nasal Specimen received for Influenza A/B Molecular testing 07/17/18 18:08 Nasal Screen MRSA (PCR) - Final Nasal Mrsa Not Detected Assessment/Plan 78 year old with a history of HTN, A.fib? with PM (2004), DM, CAD, Thyroid cancer status post chemo, recent LUE DVT now on Lovenox, admitted with PNA, intubated, until yesterday was on sedation. Initially, she did require pressors and review of her prior vitals showed an episode of SBP in the 80s but no sustained hypotension. She has since been weaned off pressures and has most recently been hypertensive. She has been off and on sedation throughout her stay and has been slow to wake up, but has been off of sedative for over 24 hours. This morning, it was noted that she was not moving her left arm. She will wake up and move her right side. There is concern for possible stroke. It was also noted she had some "twitching" in her eyes but no generalized tonic- clonic activity reported. She had a head CT which showed no acute issues. 1. Left sided weakness: it is difficult to determine without MRI whether she has suffered a stroke. Unfortunately, this morning was the first time she was able to be evaluated off sedation without significant agitation so it is impossible to tell when her weakness may have developed. She has risk factors and did have some hypotension and is certainly at risk to develop a stroke. Consider repeating a CT in several days to look for evidence of evolving stroke. In the setting of acute stroke, I would strive to keep her Hemoglobin above 7, she is 8 today. You could also consider repeat Echo with bubble to rule out PFO given DVT and history of A.fib. For now, I would treat with ASA, ( she is on Lovenox for DVT), can normalized blood pressures slowly but would avoid hypotension. When she is more awake, we can do a more thorough evaluation. She remains somnolent and cannot comply with examination completely. Once she is extubated and awake, we can get a better picture of her weakness. Unfortunately, she cannot have an MRI due to PM. 2. Twitching: Previous "jerking movements" captured on EEG and were non- epileptogenic. EEG was c/w encephalopathy. She was initially on Keppra but that was stopped after EEG obtained. Most recently, she has developed some twitching in her forehead and eyes. Will recheck EEG but my suspicion for seizures is low. I would not start her on anything at this point. She does awaken and is responsive so my concern for status is low. I suppose a seizure, under sedation is possible with resulting Alvaro's on the left but this is unlikely. Neurology will continue to follow along and once she is more awake, we can more fully assess for underlying neurologic issues.
[2018-07-27] MEDS: D5W 500 ML BAG* 500 ML IV SCH ×2 (11:08→23:00)
[2018-07-27] MEDS ORDERED: Vancomycin Trough Check NOTE FOLLOW UP ONE (11:30)
[2018-07-27] MEDS: Vancomycin(*) 750 MG in NS 0.9% 250 ML* 250 ML IVPB SCH (14:51)
--- NOTE | 2018-07-27 15:28 | ECHO ---
Amended Report Patient: ORACIO LO [facility] Rec#: [id number] : 1940 Date: 07/27/2018 Age: 78y Height: 163 cm / 64.2 in Weight: 77.4 kg / 170.6 lbs Sex: F BSA: 1.8 Room#: ICU 6 Admit Date#: 07/17/2018 Type: Inpatient Referring: Alexx Mcneal DO Reading: Kristi Aguirre MD Inspector Dials: Ashtyn Bloom RN RDCS CC: Jojo Clark MD Transthoracic Echocardiogram Indication: CVA BP: 157/74 HR: 70 Rhythm: Paced Findings History: A. fib, pacemaker, HTN, HLD, DM, thyroid cancer, chemotherapy, recent DVT. This is a LIMITED exam for bubble study only. Technical Comments: The study quality is fair. The study is technically limited due to patient body habitus. The study is technically limited due to patient being intubated and on a ventilator. Completed at 1510. Right Atrium: The bubble study is negative. A patent foramen ovale is not demonstrated by agitated contrast. Contrast: Normal saline was used as contrast for the bubble study. Conclusions Limited echo for bubble study only. Full echo done 07/19/2018. The bubble study is negative. A patent foramen ovale is not demonstrated by agitated contrast.
[2018-07-27] MEDS: Vancomycin(*) 1,250 MG in NS 0.9% 250 ML* 250 ML IVPB SCH (16:53)
[2018-07-27 17:20] LABS: ABS Basophils 0 10^3/ul (0-0.2); ABS Eosinophils 0.2 10^3/ul (0-0.6); ABS Lymphocytes 1.2 10^3/ul (1.0-4.8); ABS Monocytes 1.3 10^3/ul (0-0.8); ABS Neutrophils 18.1 10^3/ul (1.5-7.7); ABS Nucleated RBC 0 10^3/ul; Eosinophil % 0.7 %; Hematocrit 30 % (35-47); Hemoglobin 9.8 g/dl (12.0-16.0); Lymphocyte % 5.8 %; Mean Corpuscular HGB Conc 33 g/dl (31-36); Mean Corpuscular Hemoglobin 31 pg (27-31); Mean Corpuscular Volume 94 fL (80-97); Mean Platelet Volume 8.8 fL (7.4-10.4); Nucleated Red Blood Cells % 0.2; Platelet Count 412 10^3/ul (150-450); Red Blood Count 3.21 10^6/ul (4.00-5.40); Red Cell Distribution Width 14 % (10.5-15); White Blood Count 20.7 10^3/ul (3.5-10.8)
[2018-07-27 17:29] LABS: BUN/Creatinine Ratio 74.5 (8-20); Calcium 8.6 mg/dL (8.6-10.3); EGFR African American 140.8 (>60); EGFR Non-African American 116.3 (>60); Magnesium 2.3 mg/dL (1.9-2.7); Phosphorus 2.9 mg/dL (2.5-5.0)
[2018-07-27] MEDS: Atorvastatin* 80 MG TAB PO SCH (22:58)
[2018-07-28] MEDS: Albuterol/Ipratropium NEB.SOL* Albuterol 2.5 MG/Ipratropium 0.5 MG 3 ML INH SCH ×4 (00:22→19:41)
--- NOTE | 2018-07-28 02:33 | EEG ---
ELECTROENCEPHALOGRAPHY: DATE OF STUDY: 07/27/18 LOCATION: She is an inpatient in ICU bed 6. REFERRING PHYSICIAN: Dr. Baca. CLINICAL PROBLEM: Respiratory arrest, who is intubated. Seizure like or myoclonic like activity. MEDICATIONS: Include: 1. Insulin. 2. Vancomycin. 3. Citalopram. 4. Amlodipine. 5. Levothyroxine. 6. Atorvastatin. 7. Atenolol. 8. . 9. Lisinopril. REPORT: This 18-channel EEG is remarkable for background rhythms consisting of low- voltage theta and delta activity fairly diffusely with superimposed very low- voltage beta rhythms seen more predominantly frontally. The patient was intubated and unresponsive. Sedation has reportedly been stopped prior to this recording. Movement artifact including repetitive blinking is seen frequently. There are no epileptiform discharges during those episodes. Activation procedures not attempted. There is no evidence of sleep stages. Other than episodes of repetitive blinking or blepharospasm associated with movement and eye movement artifact, there are no other changes in the background rhythms. There was no evidence of sleep stages. There were no focal, lateralized, or epileptiform abnormalities. CLINICAL IMPRESSION: Abnormal EEG due to slowing and disorganization of background rhythms consistent with diffuse cerebral dysfunction. There are no focal or epileptiform features to this recording. [id number]/[facility] #: [id number] LUDWIN
[2018-07-28] MEDS: Insulin LISPRO* 1 UNITS UNIT SUBCUT SCH ×7 (03:54→23:39)
[2018-07-28] MEDS: Vancomycin(*) 1,250 MG in NS 0.9% 250 ML* 250 ML IVPB SCH (03:54)
[2018-07-28] MEDS: Chlorhexidine MOUTHWASH 0.12%* 15 ML UDC TOPICAL SCH ×7 (03:55→23:43)
[2018-07-28] MEDS: Enoxaparin(*) 80 MG/0.8 ML SYR SUBCUT SCH ×2 (06:15→17:50)
[2018-07-28] MEDS: Levothyroxine TAB* 150 MCG TAB PO SCH (06:16)
[2018-07-28 06:43] LABS: ABS Basophils 0.1 10^3/ul (0-0.2); ABS Eosinophils 0.3 10^3/ul (0-0.6); ABS Lymphocytes 1.6 10^3/ul (1.0-4.8); ABS Monocytes 1.1 10^3/ul (0-0.8); ABS Neutrophils 16.4 10^3/ul (1.5-7.7); ABS Nucleated RBC 0 10^3/ul; Eosinophil % 1.4 %; Hematocrit 29 % (35-47); Hemoglobin 9.6 g/dl (12.0-16.0); Lymphocyte % 8.1 %; Mean Corpuscular HGB Conc 33 g/dl (31-36); Mean Corpuscular Hemoglobin 31 pg (27-31); Mean Corpuscular Volume 94 fL (80-97); Mean Platelet Volume 8.7 fL (7.4-10.4); Nucleated Red Blood Cells % 0.1; Platelet Count 387 10^3/ul (150-450); Red Blood Count 3.13 10^6/ul (4.00-5.40); Red Cell Distribution Width 14 % (10.5-15); White Blood Count 19.4 10^3/ul (3.5-10.8)
[2018-07-28 07:04] LABS: BUN/Creatinine Ratio 69.6 (8-20); Calcium 8.6 mg/dL (8.6-10.3); EGFR African American 158.6 (>60); Phosphorus 3.2 mg/dL (2.5-5.0); Potassium 3.6 mmol/L (3.5-5.0)
[2018-07-28] MEDS ORDERED: Potassium Chloride LIQUID* 20 MEQ PACKET PO ONE (07:52)
[2018-07-28] MEDS: KCL 20 MEQ/100 ML IVPREMIX* 20 MEQ/100 ML BAG IV SCH ×3 (08:10→16:25)
--- NOTE | 2018-07-28 08:18 | PN ---
Date of Service: 07/28/18 Critical Care Services: 78F with htn, hld, dm, cad, s/p ppm, thyroid ca s/p chemo/rt, on warfarin at home intially presented with abd pain/nausea/vomting. Had PNA. Was intubated. 07/18: Overnight she required the initiation of Levophed to maintain MAPs > 65. This AM she had a second episode of lower extremity extention with twitching and periorbital twitching. Given Ativan and Keppra load and EEG ordered. Evaluated by Neurology, once sedation off patient following commands during episodes and EEG negative thus not seizure activity. No need for ongoing antiepileptics. GI consulted for elevated LFTs and findings of thickened gallbladder wall. Plan of possible ERCP on 07/19. Weaned off pressors by afternoon, but restarted in evening to keep MAPs > 65 07/19: Low urine output overnight. Bolused 1L NS. LFTs improved. Seen by GI, no need for intervention at this time. UOP decreased, BNP elevated, Lasix x 1 given. 07/20: Given Lasix x 2 for low urine output and volume overload. On minimal pressors (1-3 mcg/min Levophed). TF started. 07/21: Tolerated spontaneous breathing trial x 12 hours. Slow to awaken during sedation vacation. Vasopressors weaned off. 07/22: Tolerated spontaneous breathing trial during day. Beginning to arouse. Given albumin for oliguria with improvement 07/23: Began auto-diuresing overnight. Following commands. Tolerating PS throughout day. 07/25: did not tolerate SBT due to tachypnea. Agitated off precedex. No other overnight events. 07/26: Lab work with significant hypernatremia. WBC increasing. Febrile yesterday. Poor mental status. 07/27: s/p bronch yesterday. fem tlc switched to picc. LUE doppler with dvt. lovenox started. ct head neg. Still not moving left side. Will send for MRI brain. 07/28: Cannot have MRI with her pacemaker. Neurology following. C Diff positive. Vital Signs: Temp Pulse Resp BP SpO2 FiO2 99.7 F 70 19 160/75 97 35 07/28/18 07:01 07/28/18 07:20 07/28/18 07:20 07/28/18 07:01 07/28/18 07:20 07/28 04:00 Physical Exam: Gen - intubated, not following commands, anasarca heent - ncat, perrl neck - no jvd cv - s1/s2, no murmur lungs - cta, +ronchi abd - soft, nt ext - anasarca, +swelling in LUE worse than right neuro - not moving left side. able to squeeze my fingers with right hand on command. has forehead twitch. Fluid Balance (Past 24 Hours): I= O= Net Intake & Output 07/26/18 07/27/18 07/28/18 07/29/18 06:59 06:59 06:59 06:59 Intake Total 3362.1 3612.5 6580 Output Total 4818 1775 4195 230 Balance -1455.9 1837.5 2385 -230 Weight 78.9 kg 77.4 kg Intake: IV Fluids 599.1 1029.5 2949 Antibiotics 215 D5W 328 2576 NS 599.1 10 Normal Saline 691.5 158 IVPB 685 791 53 Antibiotics 685 D5W 314 NS 250 42 Normal Saline 227 11 Medicated IV 253.0 474 GEN - Furosemide/Lasix 45 Magnesium 100 Precedex 90 kphos 174 potassium 200 propofol 118.0 Oral 0 Tube Feeding 5287 334 2976 Tube Feeding Flush Amount 669 393 5019 NG Tube Irrigate Amount 165 175 Output: Walsh 4818 1775 3395 230 Liquid Stool 500 Ileostomy 300 Other: Estimated Stool Amount Large Labs: Laboratory Results - last 24 hr 07/27/18 07/27/18 07/27/18 00:05 09:24 13:00 WBC RBC Hgb Hct MCV MCH MCHC RDW Plt Count MPV Neut % (Auto) Lymph % (Auto) Mills % (Auto) Eos % (Auto) Baso % (Auto) Absolute Neuts (auto) Absolute Lymphs (auto) Absolute Monos (auto) Absolute Eos (auto) Absolute Basos (auto) Absolute Nucleated RBC Nucleated RBC % Hem Pathologist Commnt Sodium Potassium Chloride Carbon Dioxide Anion Gap BUN Creatinine Est GFR ( Amer) Est GFR (Non-Af Amer) BUN/Creatinine Ratio Glucose POC Glucose (mg/dL) 155 H Calcium Phosphorus Magnesium Vancomycin Trough 9.7 07/27/18 07/27/18 07/27/18 13:00 16:50 16:50 WBC 20.7 H RBC 3.21 L Hgb 9.8 L Hct 30 L MCV 94 MCH 31 MCHC 33 RDW 14 Plt Count 412 MPV 8.8 Neut % (Auto) 87.1 Lymph % (Auto) 5.8 Mills % (Auto) 6.2 Eos % (Auto) 0.7 Baso % (Auto) 0.2 Absolute Neuts (auto) 18.1 H Absolute Lymphs (auto) 1.2 Absolute Monos (auto) 1.3 H Absolute Eos (auto) 0.2 Absolute Basos (auto) 0 Absolute Nucleated RBC 0 Nucleated RBC % 0.2 Hem Pathologist Commnt Sodium 156 H* Potassium 4.0 Chloride 116 H Carbon Dioxide 36 H Anion Gap 4 BUN 38 H Creatinine 0.51 Est GFR ( Amer) 140.8 Est GFR (Non-Af Amer) 116.3 BUN/Creatinine Ratio 74.5 H Glucose 138 H POC Glucose (mg/dL) 155 H Calcium 8.6 Phosphorus 2.9 Magnesium 2.3 Vancomycin Trough 07/27/18 07/27/18 07/28/18 17:34 20:46 00:41 WBC RBC Hgb Hct MCV MCH MCHC RDW Plt Count MPV Neut % (Auto) Lymph % (Auto) Mills % (Auto) Eos % (Auto) Baso % (Auto) Absolute Neuts (auto) Absolute Lymphs (auto) Absolute Monos (auto) Absolute Eos (auto) Absolute Basos (auto) Absolute Nucleated RBC Nucleated RBC % Hem Pathologist Commnt Sodium Potassium Chloride Carbon Dioxide Anion Gap BUN Creatinine Est GFR ( Amer) Est GFR (Non-Af Amer) BUN/Creatinine Ratio Glucose POC Glucose (mg/dL) 145 H 155 H 155 H Calcium Phosphorus Magnesium Vancomycin Trough 07/28/18 07/28/18 07/28/18 05:19 06:20 06:20 WBC 19.4 H RBC 3.13 L Hgb 9.6 L Hct 29 L MCV 94 MCH 31 MCHC 33 RDW 14 Plt Count 387 MPV 8.7 Neut % (Auto) 84.3 Lymph % (Auto) 8.1 Mills % (Auto) 5.7 Eos % (Auto) 1.4 Baso % (Auto) 0.5 Absolute Neuts (auto) 16.4 H Absolute Lymphs (auto) 1.6 Absolute Monos (auto) 1.1 H Absolute Eos (auto) 0.3 Absolute Basos (auto) 0.1 Absolute Nucleated RBC 0 Nucleated RBC % 0.1 Hem Pathologist Commnt Sodium 153 H Potassium 3.6 Chloride 113 H Carbon Dioxide 35 H Anion Gap 5 BUN 32 H Creatinine 0.46 L Est GFR ( Amer) 158.6 Est GFR (Non-Af Amer) 131.0 BUN/Creatinine Ratio 69.6 H Glucose 138 H POC Glucose (mg/dL) 155 H Calcium 8.6 Phosphorus 3.2 Magnesium 2.0 Vancomycin Trough Studies: Gallbladder US 07/17 IMPRESSION: #. Incompletely distended gallbladder is remarkable for nonspecific wall thickening which may be due to primary gallbladder pathology or primary hepatic disease. No visualized gallstones or biliary sludge. Negative for biliary dilatation. #. No sonographic abnormality of the liver evident. Brain CT 07/17 IMPRESSION: 1. No acute intracranial abnormality. 2. Mild chronic small vessel ischemic disease. CT abd/pel 07/17 IMPRESSION: 1. Multifocal pneumonia. 2. No etiology for patient's elevated LFTs. 3. Nonspecific left perirenal/armani-adrenal stranding without other findings to suggest pyelonephritis. CXR 07/25 IMPRESSION: 1. LINES AND TUBES ABOVE. 2. PROGRESSION OF MULTIFOCAL CONSOLIDATION. TTE 07/19 Conclusions The study is technically limited due to patient being intubated and on a ventilator. The left ventricular chamber size is normal. The left ventricle appears overall hyperdynamic, EF Greater Than 65%, septal dyskinesis and relative hypokinesis of the base of the inferior wall. The right ventricular global systolic function is hyperdynamic. There is a trace of mitral regurgitation. There is mild tricuspid regurgitation. Compared with prior echo of 08/12/17, EF stable, basilar inferior hypokinesis new, septal abnormalities seen previously, prior EF was 60-65%, valve function is not significantly changed. Brain CT 07/26 Impression: No evidence for gross acute infarct, mass effect, or hemorrhage. Impression: 78F with htn, hld, dm, cad, s/p ppm, thyroid ca s/p chemo/rt, on warfarin at home intially presented with abd pain/nausea/vomting. Pna. New CVA? C diff. Plan: Neuro - AMS, cva? - not moving left arm - head ct negative - unable to get MRI with pacemaker - neurology following CV - htn, hld, cad, s/p ppm - start norvasc and lisinopril for elevated bp - has had neg fluid balance over past 2 days - new hypokinesis on TTE likely 2/2 sepsis - c/w asa/statin/betablocker Pulm - hypoxic respiratory failure - 2/2 pna/copd - cxr with worsening pna - s/p bronch - wean vent as tolerated - nebs q4 - possible extubation today ID - sepsis - shock resolved - now c diff positive - stop iv vanco/aztreonam - start po vanco, iv flagyl - contact precautions GI - tubes feeds renal - hypernatremia, hypokalemia, jana - creatinine improving - replete electrolytes heme - LUE DVT - lovenox endo - dm - check fs, niss lines - rue picc ppx - gi/dvt full code Critical Care Time: 65 mins
[2018-07-28] MEDS: metroNIDAZOLE IV 500 MG/100ML* 500 MG/100 ML BAG IVPB SCH ×3 (08:39→23:43)
[2018-07-28] MEDS ORDERED: VANCOMYCIN PO SCH (09:00)
[2018-07-28] MEDS: Aspirin 81 mg CHEW TAB* 81 MG TAB.CHEW PO SCH (09:19)
[2018-07-28] MEDS: amLODIPine TAB* 5 MG PO SCH (09:19)
[2018-07-28] MEDS: Atenolol TAB* 25 MG PO SCH ×2 (09:19→20:10)
[2018-07-28] MEDS: Lisinopril TAB* 10 MG PO SCH (09:19)
[2018-07-28] MEDS: Potassium Chloride LIQUID* 20 MEQ PACKET PO SCH (09:19)
[2018-07-28] MEDS: Vancomycin CAP* 125 MG CAP PO SCH ×4 (09:19→20:11)
[2018-07-28] MEDS: Pantoprazole IV* 40 MG IV SCH (09:20)
[2018-07-28] MEDS: Citalopram TAB* 20 MG PO SCH (09:25)
[2018-07-28] MEDS ORDERED: Succinylcholine* 20 MG/ML 10 ML VIAL ONE (11:00)
[2018-07-28] MEDS ORDERED: Etomidate* 2 MG/ML 20 ML VIAL (40 MG) ONE (11:09)
--- NOTE | 2018-07-28 11:19 | OP ---
Operative Report - Blank - Operative Report Date of Operation: 07/28/18 Note: Endotracheal Intubation Date: 07/28/18 Time: 11am Indication: Respiratory Distress Attending: Fredis Banks time-out was completed verifying correct patient, procedure, site, positioning , and special equipment if applicable. The patient was placed in a flat position. Sedation was obtained using Etomidate 20mg. The patient was easily ventilated using an ambu bag. The GLIDESCOPE MAC 3 BLADE was used and inserted into the oropharynx at which time there was a Grade 1 view of the vocal cords. A 8.0-togolese endotracheal tube was inserted and visualized going through the vocal cords. The stylette was removed. Colorimetric change was visualized on the CO2 meter. Breath sounds were heard in both lung wise equally. The endotracheal tube was placed at 23 cm, measured at the teeth. A chest x-ray was ordered to assess for pneumothorax and verify endotrachealtube placement. Estimated Blood Loss: None The patient tolerated the procedure well and there were no complications.
[2018-07-28] MEDS: fentaNYL* 50 MCG/ML 2 ML VIAL (100 MCG VIAL) IV SLOW PU PRN ×4 (11:46→23:44)
[2018-07-28] MEDS: D5W 500 ML BAG* 500 ML IV SCH (13:18)
[2018-07-28] MEDS: Aztreonam (*) 2 GM in NS 0.9% 100 ML* 100 ML IVPB SCH (19:20)
[2018-07-28] MEDS: Furosemide IV* 10 MG/ML 10 ML VIAL (100 MG) IV SCH (19:21)
[2018-07-28] MEDS: Dexmedetomidine* 400 MCG in NS 0.9% 100 ML* 96 ML IVPB SCH (19:21)
[2018-07-28] MEDS: Atorvastatin* 80 MG TAB PO SCH (20:10)
[2018-07-28] MEDS: Bacitracin OINTMENT* 0.5% 0.5 oz TUBE TOPICAL SCH (20:11)
[2018-07-29] MEDS: Albuterol/Ipratropium NEB.SOL* Albuterol 2.5 MG/Ipratropium 0.5 MG 3 ML INH SCH ×4 (01:20→22:21)
[2018-07-29] MEDS: Insulin LISPRO* 1 UNITS UNIT SUBCUT SCH ×6 (05:38→20:45)
[2018-07-29] MEDS: Chlorhexidine MOUTHWASH 0.12%* 15 ML UDC TOPICAL SCH ×5 (05:58→20:46)
[2018-07-29] MEDS: Levothyroxine TAB* 150 MCG TAB PO SCH (05:58)
[2018-07-29] MEDS: Enoxaparin(*) 80 MG/0.8 ML SYR SUBCUT SCH ×2 (05:58→17:35)
[2018-07-29] MEDS: fentaNYL* 50 MCG/ML 2 ML VIAL (100 MCG VIAL) IV SLOW PU PRN ×4 (05:59→20:46)
[2018-07-29 06:20] LABS: ABS Basophils 0 10^3/ul (0-0.2); ABS Eosinophils 0.3 10^3/ul (0-0.6); ABS Lymphocytes 1.1 10^3/ul (1.0-4.8); ABS Monocytes 0.7 10^3/ul (0-0.8); ABS Neutrophils 11.3 10^3/ul (1.5-7.7); ABS Nucleated RBC 0 10^3/ul; Eosinophil % 2.4 %; Hematocrit 27 % (35-47); Hemoglobin 8.6 g/dl (12.0-16.0); Lymphocyte % 8.2 %; Mean Corpuscular HGB Conc 32 g/dl (31-36); Mean Corpuscular Hemoglobin 31 pg (27-31); Mean Corpuscular Volume 96 fL (80-97); Mean Platelet Volume 9.1 fL (7.4-10.4); Nucleated Red Blood Cells % 0; Platelet Count 340 10^3/ul (150-450); Red Blood Count 2.79 10^6/ul (4.00-5.40); Red Cell Distribution Width 14 % (10.5-15); White Blood Count 13.5 10^3/ul (3.5-10.8)
[2018-07-29 06:33] LABS: Calcium 8.5 mg/dL (8.6-10.3); EGFR African American 158.6 (>60); Magnesium 1.8 mg/dL (1.9-2.7); Potassium 3.9 mmol/L (3.5-5.0)
[2018-07-29] MEDS: metroNIDAZOLE IV 500 MG/100ML* 500 MG/100 ML BAG IVPB SCH ×2 (08:46→16:45)
[2018-07-29] MEDS: Bacitracin OINTMENT* 0.5% 0.5 oz TUBE TOPICAL SCH ×2 (08:57→20:46)
[2018-07-29] MEDS: Lisinopril TAB* 10 MG PO SCH (08:57)
[2018-07-29] MEDS: Potassium Chloride LIQUID* 20 MEQ PACKET PO SCH (08:58)
[2018-07-29] MEDS: Atenolol TAB* 25 MG PO SCH ×2 (08:58→20:45)
[2018-07-29] MEDS: Aspirin 81 mg CHEW TAB* 81 MG TAB.CHEW PO SCH (08:59)
[2018-07-29] MEDS: Pantoprazole IV* 40 MG IV SCH (08:59)
[2018-07-29] MEDS: Vancomycin CAP* 125 MG CAP PO SCH ×4 (08:59→20:45)
[2018-07-29] MEDS: amLODIPine TAB* 5 MG PO SCH (08:59)
[2018-07-29] MEDS: Citalopram TAB* 20 MG PO SCH (08:59)
[2018-07-29] MEDS ORDERED: methylPREDNISolone 125 MG* 2 ML VIAL IM ONE (10:15)
[2018-07-29] MEDS ORDERED: methylPREDNISolone 125 MG* 2 ML VIAL IV ONE (11:02)
--- NOTE | 2018-07-29 13:32 | CONS ---
NEUROLOGY FOLLOWUP CONSULTATION: DATE OF FOLLOWUP: 07/29/18 LOCATION: She is in ICU bed 6. COPY CHASER: Dr. Mcneal. CHIEF COMPLAINT: Weakness and pneumonia. INTERVAL HISTORY: Since yesterday, Kina is reportedly much more alert. I spoke with her nurse, Beverley, who also cared for her yesterday and she has noted a significant improvement. I spoke with her and daughter who are present in the room and they also note an improvement in her recognition and response to her surroundings. She also seems to be moving her left arm a bit better than she has been. MEDICATIONS: Reviewed and she is on: 1. Albuterol. 2. Amlodipine. 3. Aspirin 81 mg. 4. Atenolol. 5. Atorvastatin 80 mg. 6. Citalopram 20 mg p.o. daily. 7. Lovenox 80 mg subcutaneous q.12 hours. 8. Fentanyl 25 mcg IV q.2h p.r.n. 9. Sliding scale insulin. 10. Levothyroxine 150 mcg p.o. daily. 11. Lisinopril 20 mg p.o. daily. 12. Metronidazole 500 mg IV q.8 hours. 13. Protonix 40 mg IV daily. 14. Vancomycin 125 mg p.o. four times daily. PHYSICAL EXAM: She is intubated, but awake and responds to voice appropriately. Most recent vital signs: Temperature 99.1 Walsh probe, blood pressure 158/84, heart rate in the 70s. Respiratory rate is 16 and oxygen saturation is 96% on 35% FiO2. Neck is supple. Neurologically, pupils respond to light from 3 down to 2 mm. She visually regards the examiner and reliably responds to visual threat. Facial musculature is symmetric at forceful eye closure. She nods her head appropriately to questions. Motor exam reveals decreased muscle tone diffusely. She is able to raise the right arm off the bed and wiggle her feet to command. She very weakly makes a steam gigger with the left hand and cannot raise the left arm off the bed. Reflexes are intact at the right biceps and brachioradialis and trace at the left brachioradialis and absent at the biceps. Ankle reflexes are absent. Plantar responses are flexor bilaterally. She follows commands appropriately and nods her head appropriately to questions. She denies headache or arm pain. DIAGNOSTIC STUDIES/LAB DATA: Laboratory data is reviewed. I reviewed her CT scans of the brain from 07/17/18 as well as 07/26/18 and both appear normal. Laboratory studies today notable for a sodium of 148, creatinine 0.46, glucose 117. Liver enzymes are improved with AST down to 42 and ALT 32 as of 07/26/18. She did have a very low TSH at 0.02 on 07/18/18 when she came in. CBC today notable for hemoglobin down a bit at 8.6, white blood cell count remains elevated at 13.5. IMPRESSION AND PLAN: Impression is that of encephalopathy after sepsis with pneumonia and episodes of hypotension and briefly at least of hypoxia. She appears to be getting more lucid. She is diffusely weak, but is very cognizant. Facial musculature is symmetric and she may have had a cerebrovascular event, but she may have had a cervical spine issue as another possibility. Critical illness polyneuropathy or myopathy is also in the differential in spite of the asymmetry. I recommend rechecking thyroid functions as her TSH was extremely low when she came in. The last time her T4 was checked was a couple of months ago and it was elevated. I would recommend getting a CT of her cervical spine, but I think we can wait until she is extubated. I have put in lab request for a creatine kinase as well because of her diffuse weakness and relatively high dose statins. We will continue to follow her along with you. [id number]/[facility] #: [id number] LUDWIN
--- NOTE | 2018-07-29 14:24 | PN ---
Date of Service: 07/29/18 - [facility] note Critical Care Services: Pt seen and examined at bedside. Pt is more alert today. Has wheeze on auscultation and gurgling sounds that are audible. Active Medications Generic Name Dose Route Start Last Admin Trade Name Freq PRN Reason Stop Dose Admin Acetaminophen 650 mg 07/17/18 19:54 07/26/18 02:36 Tylenol Adult Liq* PO 650 mg Q6H PRN Administration FEVER Albuterol/Ipratropium 1 neb 07/19/18 15:00 07/29/18 12:27 Duoneb (Albuterol 2.5 Mg/Ipratropium 0.5 Mg) INH 1 neb [id number] AWAKE HAMILTON Administration Amlodipine Besylate 10 mg 07/27/18 09:00 07/29/18 08:59 Norvasc Tab* PO 10 mg DAILY H[facility]ILTON Administration Aspirin 81 mg 07/20/18 09:00 07/29/18 08:59 Aspirin 81 Mg Chew Tab* PO 81 mg DAILY H[facility]ILTON Administration Atenolol 25 mg 07/23/18 09:00 07/29/18 08:58 Tenormin Tab* PO 25 mg BID H[facility]ILTON Administration Atorvastatin Calcium 80 mg 07/17/18 21:00 07/28/18 20:10 Lipitor* PO 80 mg 2100 H[facility]ILTON Administration Bacitracin 1 applic 07/28/18 21:00 07/29/18 08:57 Bacitracin Ointment* TOPICAL 1 applic BID H[facility]ILTON Administration Chlorhexidine Gluconate 15 ml 07/17/18 20:00 07/29/18 12:47 Peridex Mouth Wash 0.12%* TOPICAL 15 ml Q4H HAMILTON Administration Citalopram Hydrobromide 20 mg 07/18/18 09:00 07/29/18 08:59 Celexa Tab* PO 20 mg DAILY H[facility]ILTON Administration Dextrose 12.5 gm 07/26/18 08:22 D50w Syringe 50 Ml* IV PUSH .FOR FS < 60 - SS PRN FS < 60 Enoxaparin Sodium 80 mg 07/26/18 18:00 07/29/18 05:58 Lovenox(*) SUBCUT 80 mg Q12H H[facility]ILTON Administration Fentanyl Citrate 25 mcg 07/28/18 11:40 07/29/18 11:29 Fentanyl* IV SLOW PU 25 mcg Q2H PRN Administration PAIN Heparin Sodium (Porcine) 1 - 3 ml 07/26/18 18:00 07/29/18 05:58 Heparin Flush Picc/Ml/Cvc(*) FLUSH 1 ml 0600,1800 HAMILTON Administration Protocol Dextrose 500 mls @ 75 mls/hr 07/27/18 08:00 07/28/18 13:18 D5w 500 Ml Bag* IV 07/29/18 14:39 75 mls/hr PER RATE HAMILTON Administration Metronidazole/Sodium Chloride 500 mg in 100 mls @ 100 mls/hr 07/28/18 08:00 07/29/18 08:46 Flagyl 500 Mg Ivpb* IVPB 100 mls/hr Q8H H[facility]ILTON Administration Insulin Human Lispro 0 units 07/26/18 12:00 07/29/18 13:31 Humalog* SUBCUT 1 units FS Q4 ICU H[facility]ILTON Administration Protocol Levothyroxine Sodium 150 mcg 07/18/18 06:00 07/29/18 05:58 Synthroid Tab* PO 150 mcg DAILY@0600 H[facility] Administration Lisinopril 20 mg 07/28/18 09:00 07/29/18 08:57 Prinivil Tab* PO 20 mg DAILY H[facility] Administration Pantoprazole Sodium 40 mg 07/17/18 21:00 07/29/18 08:59 Protonix Iv* IV 40 mg DAILY H[facility] Administration Potassium Chloride 40 meq 07/26/18 09:00 07/29/18 08:58 Klor-Con Liquid* PO 40 meq DAILY H[facility]TON Administration Vancomycin HCl 125 mg 07/28/18 09:00 07/29/18 12:47 Vancomycin Cap* PO 125 mg QID H[facility] Administration Vital Signs Temp Pulse Resp BP Pulse Ox 98.4 F 71 18 169/87 98 07/29/18 14:01 07/29/18 14:01 07/29/18 13:00 07/29/18 14:00 07/29/18 14:01 Vital Signs: Temp Pulse Resp BP SpO2 FiO2 98.4 F 71 18 169/87 98 35 07/29/18 14:01 07/29/18 14:01 07/29/18 13:00 07/29/18 14:00 07/29/18 14:01 07/29 12:00 Physical Exam: O/E: Pt in NAD HEENT: PERRLA, ETT+ Resp: Wheeze+, prolonged exp phase CVS: S1, S2+, regular Abd: Soft, BS+ Ext: Diffuse edema, not able to move lt extremities Neuro: More alert today, trying to talk with ETT when family at bedside, left sided weakness+ Skin: No rash Fluid Balance (Past 24 Hours): S=3348 O= 800 Net 239 Intake & Output 07/27/18 07/28/18 07/29/18 07/30/18 06:59 06:59 06:59 06:59 Intake Total 3612.5 6580 4584 1039 Output Total 1775 4195 2351 800 Balance 1837.5 2385 2233 239 Weight 170 lb 10.205 oz 181 lb 10.574 oz Intake: IV Fluids 1029.5 2949 2193 249 Antibiotics 215 249 D5W 328 2576 2043 NS 10 150 Normal Saline 691.5 158 IVPB 791 53 300 0 Antibiotics 300 D5W 314 0 NS 250 42 Normal Saline 227 11 Medicated IV 474 Magnesium 100 kphos 174 potassium 200 Oral 0 0 0 Tube Feeding 977 1729 1056 440 Tube Feeding Flush Amount 650 1200 835 300 NG Tube Irrigate Amount 165 175 200 50 Output: Urine 475 Walsh 1775 3395 1476 800 Liquid Stool 500 400 Ileostomy 300 Labs: Laboratory Results - last 24 hr 07/28/18 07/28/18 07/28/18 12:52 16:39 20:05 WBC RBC Hgb Hct MCV MCH MCHC RDW Plt Count MPV Neut % (Auto) Lymph % (Auto) [place] % (Auto) Eos % (Auto) Baso % (Auto) Absolute Neuts (auto) Absolute Lymphs (auto) Absolute Monos (auto) Absolute Eos (auto) Absolute Basos (auto) Absolute Nucleated RBC Nucleated RBC % Sodium Potassium Chloride Carbon Dioxide Anion Gap BUN Creatinine Est GFR ( Amer) Est GFR (Non-Af Amer) BUN/Creatinine Ratio Glucose POC Glucose (mg/dL) 132 H 129 H 142 H Calcium Magnesium 07/28/18 07/29/18 07/29/18 23:38 05:34 06:06 WBC RBC Hgb Hct MCV MCH MCHC RDW Plt Count MPV Neut % (Auto) Lymph % (Auto) [place] % (Auto) Eos % (Auto) Baso % (Auto) Absolute Neuts (auto) Absolute Lymphs (auto) Absolute Monos (auto) Absolute Eos (auto) Absolute Basos (auto) Absolute Nucleated RBC Nucleated RBC % Sodium 148 H Potassium 3.9 Chloride 113 H Carbon Dioxide 32 Anion Gap 3 BUN 29 H Creatinine 0.46 L Est GFR ( Amer) 158.6 Est GFR (Non-Af Amer) 131.0 BUN/Creatinine Ratio 63.0 H Glucose 117 H POC Glucose (mg/dL) 129 H 132 H Calcium 8.5 L Magnesium 1.8 L 07/29/18 07/29/18 07/29/18 06:06 08:57 12:39 WBC 13.5 H RBC 2.79 L Hgb 8.6 L Hct 27 L MCV 96 MCH 31 MCHC 32 RDW 14 Plt Count 340 MPV 9.1 Neut % (Auto) 83.8 Lymph % (Auto) 8.2 [place] % (Auto) 5.3 Eos % (Auto) 2.4 Baso % (Auto) 0.3 Absolute Neuts (auto) 11.3 H Absolute Lymphs (auto) 1.1 Absolute Monos (auto) 0.7 Absolute Eos (auto) 0.3 Absolute Basos (auto) 0 Absolute Nucleated RBC 0 Nucleated RBC % 0 Sodium Potassium Chloride Carbon Dioxide Anion Gap BUN Creatinine Est GFR ( Amer) Est GFR (Non-Af Amer) BUN/Creatinine Ratio Glucose POC Glucose (mg/dL) 137 H 133 H Calcium Magnesium Studies: Gallbladder US 07/17 IMPRESSION: #. Incompletely distended gallbladder is remarkable for nonspecific wall thickening which may be due to primary gallbladder pathology or primary hepatic disease. No visualized gallstones or biliary sludge. Negative for biliary dilatation. #. No sonographic abnormality of the liver evident. Brain CT 07/17 IMPRESSION: 1. No acute intracranial abnormality. 2. Mild chronic small vessel ischemic disease. CT abd/pel 07/17 IMPRESSION: 1. Multifocal pneumonia. 2. No etiology for patient's elevated LFTs. 3. Nonspecific left perirenal/armani-adrenal stranding without other findings to suggest pyelonephritis. CXR 07/25 IMPRESSION: 1. LINES AND TUBES ABOVE. 2. PROGRESSION OF MULTIFOCAL CONSOLIDATION. TTE 07/19 Conclusions The study is technically limited due to patient being intubated and on a ventilator. The left ventricular chamber size is normal. The left ventricle appears overall hyperdynamic, EF Greater Than 65%, septal dyskinesis and relative hypokinesis of the base of the inferior wall. The right ventricular global systolic function is hyperdynamic. There is a trace of mitral regurgitation. There is mild tricuspid regurgitation. Compared with prior echo of 08/12/17, EF stable, basilar inferior hypokinesis new, septal abnormalities seen previously, prior EF was 60-65%, valve function is not significantly changed. Brain CT 07/26 Impression: No evidence for gross acute infarct, mass effect, or hemorrhage. CXR 07/29 ETT, OGT, PICC line in place, interstitial opacities b/l Nutrition: Tube feeds Impression: 78F with htn, hld, dm, cad, s/p ppm, thyroid ca s/p chemo/rt, on warfarin at home initially presented with abd pain/nausea/vomiting. Being treated for Pna, severe c.diff,? New CVA. Pt was admitted on 07/17/18. Pt was intially placed on Vapotherm, she quickly deteriorated and was intubated on 07/17/18. Pt had complicated course, was extubated on 07/28/18, was quickly intubated again due to worsening resp status. 1. Sepsis sec to PNA, c.diff 2. Hypoxic resp failure 3. AMS 4. ?CVA, Lt hemiparesis 5. Laryngeal edema 6. Leucocytosis 7. Hypernatremia 8. ARF- Resolved 9. Hypomagnesemia 10. Anasarca Plan: 1. Neuro : Pt with improvement in mental status today. Still has Lt extremity weakness, has good gag reflex, was trying to talk with ETT when family at bedside. Seizure precautions, fall precautions. Keep HOB elevated 2. Resp: Intubated for hypoxic resp failure sec to PNA, Had to re-intubated soon after extubation. Has wheeze on auscultation, ordered stat dose of steroids. Resp mechanics are acceptable. Has thick secretions. Suspect laryngeal /tracheal edema. Given prolonged intubation and need for re-intubation, suspect might need tracheostomy. c/w bronchodilators prn. Pulm toilet. s/p bronch/BAL 3. CVS: H/o htn, hld, cad, s/p ppm, new hypokinesis on EKG sec to sepsis, Hemodynamically stable, not hypotensive. Home BP meds restarted. c/w asa/statin/ betablocker 4. ID: Septic shock resolved, WBC count improving. Completed Vancomycin and Aztreonam for PNA. On Vanco po and Flagyl for c.diff. Contact precautions. 5. Renal: Dark urine, Cr - improving, will check CK. Hypernatremia- improving. Replete electrolytes. 6. GI: c/w tube feeds. Rectal tube in place givne diarhea. 7. Endo: Hypothyroidism on supplementation, rpt TSH sent 8. Haem: Anemia- stable, leucocytosis- improving 9. Musculosketal: Lt extremity weakness, back pain. Frequent turning and positioning. Pt with diffuse anasarca 10. Psychosocial: Family at bedside, were updated, they are agreeable to plan and not interested in transfer and expressed no concerns with care DVT Px: Pt with Lt subclavian thrombus, on Lovenox. Full code IV access: PICC line Critical Care Time: 50 min
[2018-07-29] MEDS ORDERED: Vancomycin Trough Check NOTE FOLLOW UP ONE (14:30)
[2018-07-29] MEDS: Atorvastatin* 80 MG TAB PO SCH (20:45)
[2018-07-30] MEDS: Chlorhexidine MOUTHWASH 0.12%* 15 ML UDC TOPICAL SCH ×4 (00:35→13:17)
[2018-07-30] MEDS: metroNIDAZOLE IV 500 MG/100ML* 500 MG/100 ML BAG IVPB SCH ×3 (00:35→17:35)
[2018-07-30] MEDS: Insulin LISPRO* 1 UNITS UNIT SUBCUT SCH ×6 (00:43→20:19)
[2018-07-30] MEDS: Albuterol/Ipratropium NEB.SOL* Albuterol 2.5 MG/Ipratropium 0.5 MG 3 ML INH SCH ×4 (04:54→20:09)
[2018-07-30] MEDS: Enoxaparin(*) 80 MG/0.8 ML SYR SUBCUT SCH ×2 (05:16→17:35)
[2018-07-30] MEDS: Levothyroxine TAB* 150 MCG TAB PO SCH (05:16)
[2018-07-30 05:57] LABS: TSH (Thyroid Stimulating Horm) 1.2 mcIU/mL (0.34-5.60)
[2018-07-30 05:59] LABS: Free T4 0.56 ng/dL (0.61-1.12)
[2018-07-30] MEDS: Pantoprazole IV* 40 MG IV SCH (08:19)
[2018-07-30] MEDS: Citalopram TAB* 20 MG PO SCH (08:20)
[2018-07-30] MEDS: Lisinopril TAB* 10 MG PO SCH (08:20)
[2018-07-30] MEDS: Atenolol TAB* 25 MG PO SCH ×2 (08:20→21:33)
[2018-07-30] MEDS: Vancomycin CAP* 125 MG CAP PO SCH ×4 (08:20→21:35)
[2018-07-30] MEDS: amLODIPine TAB* 5 MG PO SCH (08:20)
[2018-07-30] MEDS: Aspirin 81 mg CHEW TAB* 81 MG TAB.CHEW PO SCH (08:20)
[2018-07-30] MEDS: Bacitracin OINTMENT* 0.5% 0.5 oz TUBE TOPICAL SCH ×2 (08:22→21:33)
[2018-07-30] MEDS: Potassium Chloride LIQUID* 20 MEQ PACKET PO SCH (08:22)
[2018-07-30] MEDS: fentaNYL* 50 MCG/ML 2 ML VIAL (100 MCG VIAL) IV SLOW PU PRN (13:40)
--- NOTE | 2018-07-30 15:51 | PN ---
Date of Service: 07/30/18 - [facility] note Critical Care Services: Pt seen and examined at bedside. Pt`s mental status improved significantly. Low grade fever today. Was extubated and currently on 8L O2. Vital Signs: Temp Pulse Resp BP SpO2 FiO2 99.3 F 70 21 147/76 96 35 07/30/18 15:01 07/30/18 15:01 07/30/18 15:01 07/30/18 15:01 07/30/18 15:01 07/30 12:00 Physical Exam: Gen: Pt in NAD, alert, awake post intubation HEENT: PERRLA, nO accessory muscle usage Lungs: Diminished air entry, no wheeze this am Cardiac: S1, S2+, regular Abdomen: Soft, BS+ Extremities: LUE edematous, anasarca+ Neuro: Alert, awake, oriented, able to move lt extremity slightly, weak but able to paper sorter Skin: No rash Fluid Balance (Past 24 Hours): I= 800 O= 700 Net 100 Intake & Output 07/28/18 07/29/18 07/30/18 07/31/18 06:59 06:59 06:59 06:59 Intake Total 6580 4584 2785 800 Output Total 4195 2351 2565 700 Balance 2385 2233 220 100 Weight 174 lb 2.643 oz Intake: IV Fluids 2949 2193 529 Antibiotics 215 249 D5W 2576 2043 NS 150 280 Normal Saline 158 IVPB 53 300 0 Antibiotics 300 D5W 0 NS 42 Normal Saline 11 Medicated IV 474 Magnesium 100 kphos 174 potassium 200 Oral 0 0 0 0 Tube Feeding 1729 1056 1376 600 Tube Feeding Flush Amount 1200 835 830 200 NG Tube Irrigate Amount 175 200 50 Output: Urine 475 Walsh 3395 1476 1965 700 Liquid Stool 500 400 600 Ileostomy 300 Labs: Laboratory Results - last 24 hr 07/29/18 07/29/18 07/29/18 16:54 16:58 20:25 POC Glucose (mg/dL) 195 H 184 H 179 H Total Creatine Kinase TSH Free T4 Total T3 07/30/18 04:50 POC Glucose (mg/dL) Total Creatine Kinase 852 H TSH 1.20 Free T4 0.56 L Total T3 27 L Studies: Gallbladder US 07/17 IMPRESSION: #. Incompletely distended gallbladder is remarkable for nonspecific wall thickening which may be due to primary gallbladder pathology or primary hepatic disease. No visualized gallstones or biliary sludge. Negative for biliary dilatation. #. No sonographic abnormality of the liver evident. Brain CT 07/17 IMPRESSION: 1. No acute intracranial abnormality. 2. Mild chronic small vessel ischemic disease. CT abd/pel 07/17 IMPRESSION: 1. Multifocal pneumonia. 2. No etiology for patient's elevated LFTs. 3. Nonspecific left perirenal/armani-adrenal stranding without other findings to suggest pyelonephritis. CXR 07/25 IMPRESSION: 1. LINES AND TUBES ABOVE. 2. PROGRESSION OF MULTIFOCAL CONSOLIDATION. TTE 07/19 Conclusions The study is technically limited due to patient being intubated and on a ventilator. The left ventricular chamber size is normal. The left ventricle appears overall hyperdynamic, EF Greater Than 65%, septal dyskinesis and relative hypokinesis of the base of the inferior wall. The right ventricular global systolic function is hyperdynamic. There is a trace of mitral regurgitation. There is mild tricuspid regurgitation. Compared with prior echo of 08/12/17, EF stable, basilar inferior hypokinesis new, septal abnormalities seen previously, prior EF was 60-65%, valve function is not significantly changed. Brain CT 07/26 Impression: No evidence for gross acute infarct, mass effect, or hemorrhage. CXR 07/29 ETT, OGT, PICC line in place, interstitial opacities b/l Nutrition: Clear liquid diet Impression: 78F with htn, hld, dm, cad, s/p ppm, thyroid ca s/p chemo/rt, on warfarin at home initially presented with abd pain/nausea/vomiting. Being treated for Pna, severe c.diff,? New CVA. Pt was admitted on 07/17/18. Pt was intially placed on Vapotherm, she quickly deteriorated and was intubated on 07/17/18. Pt had complicated course, was extubated on 07/28/18, was quickly intubated again due to worsening resp status. Pt was extubated 07/30/18 1. Sepsis sec to PNA, c.diff 2. Hypoxic resp failure 3. AMS 4. ?CVA, Lt hemiparesis 5. Laryngeal edema, responded to steroid dose 6. Leucocytosis 7. Hypernatremia 8. ARF- Resolved 9. Hypomagnesemia 10. Anasarca Plan: 1. Neuro : Pt with improvement in mental status today. Still has Lt extremity weakness, has good gag reflex. Seizure precautions, fall precautions. 2. Resp: Intubated for hypoxic resp failure sec to PNA, Had to be re-intubated soon after extubation 07/28. Had wheeze/stridor, responded to stat dose of steroids. Passed spontaneous breathing trial and was extubated 07/30. Is on 8L O2 , resp status better 3. CVS: H/o htn, hld, cad, s/p ppm, new hypokinesis on EKG sec to sepsis, Hemodynamically stable, not hypotensive. Home BP meds restarted. c/w asa/statin/ betablocker 4. ID: Septic shock resolved, WBC count improving. Completed Vancomycin and Aztreonam for PNA. On Vanco po and Flagyl for c.diff. Contact precautions. 5. Renal: Dark urine, Cr - improving, CK mildly elevated, likely sec to statins. Hypernatremia- improving. 6. GI: c/w tube feeds. Rectal tube in place given diarhea. 7. Endo: Hypothyroidism on supplementation, rpt TSH normal 8. Haem: Anemia- stable, leucocytosis- improving 9. Musculosketal: Lt extremity weakness, back pain. Frequent turning and positioning. Pt with diffuse anasarca and swollen LUE sec to DVT Family updated on extubation over phone DVT Px: Pt with Lt subclavian thrombus, on Lovenox. Full code IV access: PICC line Critical Care Time: 45 min
[2018-07-30 18:15] LABS: ABS Basophils 0 10^3/ul (0-0.2); ABS Eosinophils 0.1 10^3/ul (0-0.6); ABS Lymphocytes 1.1 10^3/ul (1.0-4.8); ABS Monocytes 0.9 10^3/ul (0-0.8); ABS Neutrophils 16.6 10^3/ul (1.5-7.7); ABS Nucleated RBC 0 10^3/ul; Eosinophil % 0.4 %; Hematocrit 28 % (35-47); Hemoglobin 9.1 g/dl (12.0-16.0); Lymphocyte % 5.8 %; Mean Corpuscular HGB Conc 32 g/dl (31-36); Mean Corpuscular Hemoglobin 31 pg (27-31); Mean Corpuscular Volume 95 fL (80-97); Mean Platelet Volume 8.8 fL (7.4-10.4); Nucleated Red Blood Cells % 0; Platelet Count 473 10^3/ul (150-450); Red Blood Count 2.94 10^6/ul (4.00-5.40); Red Cell Distribution Width 14 % (10.5-15); White Blood Count 18.7 10^3/ul (3.5-10.8)
[2018-07-30 18:31] LABS: BUN/Creatinine Ratio 54.3 (8-20); Calcium 7.7 mg/dL (8.6-10.3); EGFR African American 158.6 (>60); Potassium 3.4 mmol/L (3.5-5.0)
[2018-07-30] MEDS: Atorvastatin* 80 MG TAB PO SCH (21:33)
[2018-07-31] MEDS: metroNIDAZOLE IV 500 MG/100ML* 500 MG/100 ML BAG IVPB SCH ×3 (00:03→17:38)
[2018-07-31] MEDS: Insulin LISPRO* 1 UNITS UNIT SUBCUT SCH ×6 (00:13→20:56)
[2018-07-31] MEDS: Albuterol/Ipratropium NEB.SOL* Albuterol 2.5 MG/Ipratropium 0.5 MG 3 ML INH SCH ×4 (00:50→19:31)
[2018-07-31] MEDS: Levothyroxine TAB* 150 MCG TAB PO SCH (05:36)
[2018-07-31] MEDS: Enoxaparin(*) 80 MG/0.8 ML SYR SUBCUT SCH ×2 (05:36→17:34)
[2018-07-31] MEDS: Aspirin 81 mg CHEW TAB* 81 MG TAB.CHEW PO SCH (09:25)
[2018-07-31] MEDS: Atenolol TAB* 25 MG PO SCH ×2 (09:25→20:37)
[2018-07-31] MEDS: Vancomycin CAP* 125 MG CAP PO SCH ×4 (09:25→20:37)
[2018-07-31] MEDS: Lisinopril TAB* 10 MG PO SCH (09:25)
[2018-07-31] MEDS: amLODIPine TAB* 5 MG PO SCH (09:25)
[2018-07-31] MEDS: Citalopram TAB* 20 MG PO SCH (09:25)
[2018-07-31] MEDS: Potassium Chloride LIQUID* 20 MEQ PACKET PO SCH (09:28)
[2018-07-31] MEDS: Pantoprazole IV* 40 MG IV SCH (09:29)
[2018-07-31] MEDS: Bacitracin OINTMENT* 0.5% 0.5 oz TUBE TOPICAL SCH ×2 (09:38→20:37)
--- NOTE | 2018-07-31 14:09 | PN ---
Subjective Date of Service: 07/31/18 Length of Stay: 14 Days Neurology is following Ms. Davis for generalized weakness. Interval History: Overview of the interval history: Mrs. Kina Davis is a 78-year-old female hospitalized in the ICU for sepsis secondary to pneumonia and C. 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 There was a great concern for predominately left arm weakness (ipsilateral limb to where she has a DVT and significant swelling). I initially was consulted on 07/18/2018 for seizure like activity. These events were recorded on EEG and consisted of non-epileptic in nature, and were most likely rigors, tremors, or agitation as she was intubated at that time. She did not have any focal weakness and was responding appropriately at that time. An EEG on 07/18/18 showed a suppressed background while on [id number] but then transitioned to a more wake and sleep state with some intermittent diffuse slowing. She was diagnosed with mild-moderate encephalopathy related to sedation. Dr. Baca was asked to follow-up on the patient on 07/27/2018 to evaluate for left sided weakness. He recommended an MRI of the brain or repeating a CT head in several days. There was a CT head completed on 07/26/18 showed no evidence of acute stroke. She had a repeat EEG read by Dr. Huff on 07/27/2018 that showed diffuse slowing with no focal or epileptiform features to this recording. I personally reviewed the recording. 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 There was no sagittal plane to review. Subjective: According to the bedside nurse, Mrs. Davis has had significant improvement in her motor function in the left upper limb. She can now squeeze and slightly move the arm, in spite of the swelling. The right upper extremity is still stronger. The patient responds appropriately. She moves her head to nod yes or no. She denied any headache or visual disturbance. She does complain of generalized weakness rather than focal weakness of the limb. However, she does endorse left>right upper extremity weakness. She does have excessive eye blinking when startled or awaken. After a few minutes, with some reassurance, the eye-blinks subside and she was able to keep her eyes open. She wanted to be left alone. She denied any headache or visual disturbance. She did nod to feeling general weakness. She denied any left arm pain. Review of Systems: as per subjective. Objective Active Medications: Acetaminophen (Tylenol Adult Liq*) 650 mg PO Q6H PRN PRN Reason: FEVER Last Admin: 07/26/18 02:36 Dose: 650 mg Albuterol/Ipratropium (Duoneb (Albuterol 2.5 Mg/Ipratropium 0.5 Mg)) 1 neb INH [id number] AWAKE [facility] Last Admin: 07/31/18 07:43 Dose: 1 neb Amlodipine Besylate (Norvasc Tab*) 10 mg PO DAILY [facility] Last Admin: 07/31/18 09:25 Dose: 10 mg Aspirin (Aspirin 81 Mg Chew Tab*) 81 mg PO DAILY [facility] Last Admin: 07/31/18 09:25 Dose: 81 mg Atenolol (Tenormin Tab*) 25 mg PO BID [facility] Last Admin: 07/31/18 09:25 Dose: 25 mg Atorvastatin Calcium (Lipitor*) 80 mg PO 2100 [facility] Last Admin: 07/30/18 21:33 Dose: 80 mg Bacitracin (Bacitracin Ointment*) 1 applic TOPICAL BID [facility] Last Admin: 07/31/18 09:38 Dose: 1 applic Citalopram Hydrobromide (Celexa Tab*) 20 mg PO DAILY [facility] Last Admin: 07/31/18 09:25 Dose: 20 mg Dextrose (D50w Syringe 50 Ml*) 12.5 gm IV PUSH .FOR FS < 60 - SS PRN PRN Reason: FS < 60 Enoxaparin Sodium (Lovenox(*)) 80 mg SUBCUT Q12H [facility] Last Admin: 07/31/18 05:36 Dose: 80 mg Heparin Sodium (Porcine) (Heparin Flush Picc/Ml/Cvc(*)) 1 - 3 ml FLUSH 0600, 1800 [facility]; Protocol Last Admin: 07/31/18 05:37 Dose: 1 ml Metronidazole/Sodium Chloride (Flagyl 500 Mg Ivpb*) 500 mg in 100 mls @ 100 mls /hr IVPB Q8H [facility] Last Admin: 07/31/18 09:24 Dose: 100 mls/hr Insulin Human Lispro (Humalog*) 0 units SUBCUT FS Q4 ICU [facility]; Protocol Last Admin: 07/31/18 11:49 Dose: Not Given Levothyroxine Sodium (Synthroid Tab*) 150 mcg PO DAILY@0600 [facility] Last Admin: 07/31/18 05:36 Dose: 150 mcg Lisinopril (Prinivil Tab*) 20 mg PO DAILY [facility] Last Admin: 07/31/18 09:25 Dose: 20 mg Pantoprazole Sodium (Protonix Iv*) 40 mg IV DAILY [facility] Last Admin: 07/31/18 09:29 Dose: 40 mg Potassium Chloride (Klor-Con Liquid*) 40 meq PO DAILY [facility] Last Admin: 07/31/18 09:28 Dose: 40 meq Vancomycin HCl (Vancomycin Cap*) 125 mg PO QID [facility] Last Admin: 07/31/18 13:36 Dose: 125 mg Vital Signs 07/31/18 07/31/18 07/31/18 11:01 12:00 12:01 Temperature 99.5 F 99.7 F 99.7 F Pulse Rate 70 70 70 Respiratory 25 27 24 Rate Blood Pressure 170/87 (mmHg) O2 Sat by Pulse 91 96 96 Oximetry 07/31/18 07/31/18 13:00 13:01 Temperature 99.7 F 99.7 F Pulse Rate 70 70 Respiratory 26 24 Rate Blood Pressure 180/81 (mmHg) O2 Sat by Pulse 94 94 Oximetry Intake and Output Last 24 Hours 07/29/18 07/30/18 07/31/18 08/01/18 06:59 06:59 06:59 06:59 Intake Total 4584 2785 1092 150 Output Total 2351 2565 1825 1070 Balance 2233 220 -733 -920 Weight 174 lb 2.643 oz 171 lb 1.259 oz Intake: IV Fluids 2193 529 142 Antibiotics 249 142 D5W 2043 NS 150 280 IVPB 300 0 Antibiotics 300 D5W 0 Oral 0 0 0 Tube Feeding 1056 1376 750 Tube Feeding Flush Amount 835 830 200 NG Tube Irrigate Amount 200 50 150 Output: Urine 475 500 Walsh 1476 1965 1325 1070 Liquid Stool 400 600 Oxygen Devices in Use Now: High Flow Nasal Cannula Neurology Exam: General: Ill appearing elderly female in no acute distress. Extubated. HEENT: Normocephalic/atraumatic, sclera anicteric, mucous membranes moist Neck: Supple Chest: Clear to auscultation bilaterally Cardiovascular: Regular rate and rhythm without murmurs, rubs, gallops. She has 3+ edema in the left limb 2+ in bilateral lower extremities. Extremities: No clubbing, cyanosis, or edema Neurological Findings: awake, alert to self, and place but not time. She is having trouble communicating due to shortness of breath, laryngeal edema, and extreme fatigue. Answers appropriately. Cranial Nerve: PERRL, EOM-I, no facial asymmetry. Motor: generalized 3/5 weakness with 2/5 strength in the left upper extremity. She has proximal>distal extremity weakness. Reduce tone throughout. No tremors. Sensation: intact to LT/PP bilaterally upper and lower extremities Deep Tendon Reflex: 1 + on the right and 0 on the left upper extremity. Coordination test: unable to perform due to generalized weakness Gait: n/a due to generalized weakness Result Diagrams: 07/30/18 17:55 07/30/18 17:55 Additional Lab and Data: Free T4: 0.56 Total T3: 27 TSH: 1.20 CK: from 282 on 07/29/18 to 852 on 07/30/18 Microbiology and Other Data: Diagnostic Imaging: as per HPI Assessment/Plan 1. Generalized, proximal>distal, upper and lower extremity weakness with a greater severity involving the left upper extremity- The patient has no UMN signs (e.g., hyperreflexia, spasticity) that would correlate with stroke. I would suspect a stroke with the degree of weakness to be seen on CT at this time (CT was done on 07/26/18). Therefore, I don't think she had a stroke. Another factor is that her EEG did not show any hemispheric asymmetry which would typically be seen in stroke. The differential diagnosis is most likely critical illness myopathy with the left upper extremity greatly involved due to asymmetric swelling caused by the subclavian DVT. This is a diagnosis of exclusion and further evaluation for stroke and cervical spine disease should be excluded with imaging studies, once the patient is medically capable of undergoing an MRI. She does have multilevel, moderate-severe, spinal canal and foraminal narrowing in the cervical spine, but no evidence of myelopathy on examination. Other diagnosis such as statin or thyroid induced myopathy are also considered. She has had two EEGs with no evidence of Recommendations: - Repeat CK level today to make sure it is not trending upwards - Hold atorvastatin (restarted on 07/17/2018) for now as it is quite a high dose for someone her age - MRI brain and cervical spine without contrast when medically appropriate - EMG/NCS can be done in the near future to evaluate for the degree of myopathy - Neuro checks every 4 hours - PT/OT to evaluate and treat - IT TECHNICIAN evaluation and treatment - Neurology will continue to follow. Time spent: I spent a total of 50 minutes reviewing the electronic medical record, examining the patient, reviewing imaging and electrodiagnostic studies, and discussing the treatment plan with the patient and bedside nurse.
--- NOTE | 2018-07-31 16:00 | PN ---
Date of Service: 07/29/18 Critical Care Services: Patient is lethargic - localizes to voice but does not respond to verbal commands. C-spine images today show severe degenerative changes. Neur following - note appreciated Vital Signs: Temp Pulse Resp BP SpO2 FiO2 99.7 F 70 23 167/85 96 35 Physical Exam: Gen:Awake but not aware Lungs: Scattered rhonchi Cardiac: No murmurs Abdomen: Not distended Extremities: 1/4 strength bilaterally Fluid Balance (Past 24 Hours): 07/31/18 06:59 Intake Total 1092 Output Total 1825 Balance -733 Weight 171 lb 1.259 oz Intake: IV Fluids 142 Antibiotics 142 D5W NS IVPB Antibiotics D5W NS Oral 0 Tube Feeding 750 Tube Feeding Flush Amount 200 NG Tube Irrigate Amount Output: Urine 500 Walsh 1325 Liquid Stool Labs: 07/30/18 07/30/18 07/30/18 12:28 17:05 17:55 WBC RBC Hgb Hct MCV MCH MCHC RDW Plt Count MPV Neut % (Auto) Lymph % (Auto) [place] % (Auto) Eos % (Auto) Baso % (Auto) Absolute Neuts (auto) Absolute Lymphs (auto) Absolute Monos (auto) Absolute Eos (auto) Absolute Basos (auto) Absolute Nucleated RBC Nucleated RBC % Sodium 147 H Potassium 3.4 L Chloride 113 H Carbon Dioxide 29 Anion Gap 5 BUN 25 H Creatinine 0.46 L Glucose 93 POC Glucose (mg/dL) 112 H 114 H Calcium 7.7 L 07/30/18 07/30/18 07/31/18 17:55 20:16 00:02 WBC 18.7 H RBC 2.94 L Hgb 9.1 L Hct 28 L MCV 95 MCH 31 MCHC 32 RDW 14 Plt Count 473 H D Sodium Potassium Chloride Carbon Dioxide Anion Gap BUN Creatinine Est GFR ( Amer) Est GFR (Non-Af Amer) BUN/Creatinine Ratio Glucose POC Glucose (mg/dL) 104 H 103 H Calcium Studies: Spine CT - as mentioned Nutrition: NPO Impression: 1. Hypoactive delirium 2. Generalized weakness - elevated CPK - ? myopathy from statins vs critical illness myopathy 3. Severe degenerative changes in C-spine 4. Unable to eat Plan: 1. Start tube feedings 2. Hold statin (because of high dose and elevated CPK) 3. Monitor CPK I spoke with daughter today about the patient's current condition. Critical Care Time: 40 minutes
[2018-08-01] MEDS: Insulin LISPRO* 1 UNITS UNIT SUBCUT SCH ×7 (00:10→23:49)
[2018-08-01] MEDS: metroNIDAZOLE IV 500 MG/100ML* 500 MG/100 ML BAG IVPB SCH ×4 (00:48→23:49)
[2018-08-01] MEDS: Albuterol/Ipratropium NEB.SOL* Albuterol 2.5 MG/Ipratropium 0.5 MG 3 ML INH SCH ×2 (01:25→07:43)
[2018-08-01] MEDS: NS 0.9% 1000 ML** 1,000 ML IV SCH ×2 (03:14→11:29)
[2018-08-01 03:17] LABS: Hematocrit 29 % (35-47); Hemoglobin 9.5 g/dl (12.0-16.0); Mean Corpuscular HGB Conc 33 g/dl (31-36); Mean Corpuscular Hemoglobin 32 pg (27-31); Mean Corpuscular Volume 96 fL (80-97); Platelet Count 512 10^3/ul (150-450); Red Blood Count 3.04 10^6/ul (4.00-5.40); Red Cell Distribution Width 14 % (10.5-15); White Blood Count 17.2 10^3/ul (3.5-10.8)
[2018-08-01 03:32] LABS: BUN/Creatinine Ratio 55.8 (8-20); Calcium 8.2 mg/dL (8.6-10.3); EGFR African American 171.4 (>60); EGFR Non-African American 141.6 (>60); Potassium 3.2 mmol/L (3.5-5.0)
[2018-08-01] MEDS: Enoxaparin(*) 80 MG/0.8 ML SYR SUBCUT SCH ×2 (06:16→17:33)
[2018-08-01] MEDS: Levothyroxine TAB* 150 MCG TAB PO SCH (06:18)
[2018-08-01] MEDS ORDERED: Albuterol/Ipratropium NEB.SOL* Albuterol 2.5 MG/Ipratropium 0.5 MG 3 ML INH PRN (07:50)
[2018-08-01] MEDS: amLODIPine TAB* 5 MG PO SCH (08:50)
[2018-08-01] MEDS: Citalopram TAB* 20 MG PO SCH (08:50)
[2018-08-01] MEDS: Vancomycin CAP* 125 MG CAP PO SCH ×4 (08:50→21:20)
[2018-08-01] MEDS: Potassium Chloride LIQUID* 20 MEQ PACKET PO SCH (08:50)
[2018-08-01] MEDS: Lisinopril TAB* 10 MG PO SCH (08:50)
[2018-08-01] MEDS: Aspirin 81 mg CHEW TAB* 81 MG TAB.CHEW PO SCH (08:50)
[2018-08-01] MEDS: Atenolol TAB* 25 MG PO SCH ×2 (08:50→21:20)
[2018-08-01] MEDS: Pantoprazole IV* 40 MG IV SCH (08:58)
[2018-08-01] MEDS: Bacitracin OINTMENT* 0.5% 0.5 oz TUBE TOPICAL SCH ×2 (09:02→21:20)
--- NOTE | 2018-08-01 11:17 | PN ---
Subjective Date of Service: 08/01/18 Length of Stay: 15 Days Neurology is following for generalized weakness. Interval History: She appears to be more awake today. She is complaining of weakness and shortness of breath. She is still moving the right>left upper extremity. She does not want a PEG tube if she ever needs one. She did not respond when discussing tracheostomy placement. She was able to verbalize today and tell the examiner, " I want to go home." She denied any visual disturbance or headaches. She has chronic neck back pain which she endorsed again today. Review of Systems: Denied CP. Positive for shortness of breath and difficulty swallowing. Objective Active Medications: Acetaminophen (Tylenol Adult Liq*) 650 mg PO Q6H PRN PRN Reason: FEVER Last Admin: 07/26/18 02:36 Dose: 650 mg Albuterol/Ipratropium (Duoneb (Albuterol 2.5 Mg/Ipratropium 0.5 Mg)) 1 neb INH [id number] AWAKE PRN PRN Reason: SOB/WHEEZING Amlodipine Besylate (Norvasc Tab*) 10 mg PO DAILY [facility] Last Admin: 08/01/18 08:50 Dose: 10 mg Aspirin (Aspirin 81 Mg Chew Tab*) 81 mg PO DAILY [facility] Last Admin: 08/01/18 08:50 Dose: 81 mg Atenolol (Tenormin Tab*) 25 mg PO BID [facility] Last Admin: 08/01/18 08:50 Dose: 25 mg Bacitracin (Bacitracin Ointment*) 1 applic TOPICAL BID [facility] Last Admin: 08/01/18 09:02 Dose: 1 applic Citalopram Hydrobromide (Celexa Tab*) 20 mg PO DAILY [facility] Last Admin: 08/01/18 08:50 Dose: 20 mg Dextrose (D50w Syringe 50 Ml*) 12.5 gm IV PUSH .FOR FS < 60 - SS PRN PRN Reason: FS < 60 Enoxaparin Sodium (Lovenox(*)) 80 mg SUBCUT Q12H [facility] Last Admin: 08/01/18 06:16 Dose: 80 mg Heparin Sodium (Porcine) (Heparin Flush Picc/Ml/Cvc(*)) 1 - 3 ml FLUSH 0600, 1800 [facility]; Protocol Last Admin: 08/01/18 06:16 Dose: 1 ml Metronidazole/Sodium Chloride (Flagyl 500 Mg Ivpb*) 500 mg in 100 mls @ 100 mls /hr IVPB Q8H [facility] Last Admin: 08/01/18 08:49 Dose: 100 mls/hr Sodium Chloride (Ns 0.9% 1000 Ml*) 1,000 mls @ 125 mls/hr IV PER RATE [facility] Last Admin: 08/01/18 03:14 Dose: 125 mls/hr Insulin Human Lispro (Humalog*) 0 units SUBCUT FS Q4 ICU [facility]; Protocol Last Admin: 08/01/18 08:47 Dose: 2 units Levothyroxine Sodium (Synthroid Tab*) 150 mcg PO DAILY@0600 [facility] Last Admin: 08/01/18 06:18 Dose: 150 mcg Lisinopril (Prinivil Tab*) 20 mg PO DAILY [facility] Last Admin: 08/01/18 08:50 Dose: 20 mg Pantoprazole Sodium (Protonix Iv*) 40 mg IV DAILY [facility] Last Admin: 08/01/18 08:58 Dose: 40 mg Potassium Chloride (Klor-Con Liquid*) 40 meq PO DAILY [facility] Last Admin: 08/01/18 08:50 Dose: 40 meq Vancomycin HCl (Vancomycin Cap*) 125 mg PO QID [facility] Last Admin: 08/01/18 08:50 Dose: 125 mg Vital Signs 08/01/18 08/01/18 08/01/18 09:00 09:01 10:00 Temperature 99.7 F 99.7 F 99.7 F Pulse Rate 70 70 70 Respiratory 27 26 26 Rate Blood Pressure 172/75 173/83 (mmHg) O2 Sat by Pulse 95 95 94 Oximetry 08/01/18 10:01 Temperature 99.7 F Pulse Rate 70 Respiratory 26 Rate Blood Pressure (mmHg) O2 Sat by Pulse 95 Oximetry Intake and Output Last 24 Hours 07/30/18 07/31/18 08/01/18 08/02/18 06:59 06:59 06:59 06:59 Intake Total 2785 1092 2997 120 Output Total 2565 1825 2270 20 Balance 220 -733 727 100 Weight 174 lb 2.643 oz 171 lb 1.259 oz 164 lb 0.383 oz Intake: IV Fluids 577 723 8917 Antibiotics 249 142 NS 280 1674 IVPB 0 98 D5W 0 NS 98 Oral 0 0 Tube Feeding 1376 750 480 Tube Feeding Flush Amount 830 200 550 NG Tube Irrigate Amount 50 195 120 Output: Urine 500 570 Walsh 1965 1325 1700 20 Liquid Stool 600 Other: Date of Last Bowel 07/29/18 Movement Oxygen Devices in Use Now: High Flow Nasal Cannula Neurology Exam: General: Ill appearing elderly female in no acute distress. Extubated. She has a right NG tube. She was suctioned during the examination. HEENT: Normocephalic/atraumatic, sclera anicteric, mucous membranes moist Neck: Supple Chest: bilateral anterior crackles. Cardiovascular: Regular rate and rhythm without murmurs, rubs, gallops. She has 3+ edema in the left limb 2+ in bilateral lower extremities. The left arm is elevated. Neurological Findings: Awake, alert to self, and place but not time. She was able to say a few words today that included "I want to go home; answer appropriately to yes and no questions." Cranial Nerve: PERRL, EOM-I, no facial asymmetry. Motor R/L: shoulder abduction 3/2, elbow flexion 4/2, elbow extension 4/2, wrist extension 4/2, wrist flexion 4/3, finger abduction 4/2. Hip flexion 1/1, knee extension 2/2, knee flexion 3/3, knee extension 3/3, ankle dorsi and plantar flexion 3/3. Overall generalized 3/5 weakness with 2/5 weakness in the left upper extremity. She has proximal>distal extremity weakness. Reduce tone throughout. No tremors. Sensation: intact to LT/PP bilaterally upper and lower extremities Deep Tendon Reflex: 1 + on the right and 0 on the left upper extremity. Trace in the ankles bilaterally. Absent at the ankles. Coordination test: unable to perform due to generalized weakness Gait: n/a due to generalized weakness Result Diagrams: 08/01/18 03:00 08/01/18 03:00 Additional Lab and Data: Free T4: 0.56 Total T3: 27 TSH: 1.20 CK: 2890 on 08/01/2018 Microbiology and Other Data: Diagnostic Imaging: No new intracranial imaging. Assessment/Plan 1. 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 Other differential diagnosis include statin myopathy and superimposed cervical spondylosis without myelopathy. 2. Hyperckemia- no evidence of compartment syndrome on the left upper extremity (soft, non-tender, intact sensation). She has not had any reported seizures. Other than statin therapy, there is are no other medications on her list to explain this. Recommendations: - Repeat CK level tomorrow. Discussed with Dr. Ramos and he agreed with aggressive hydration. - Discontinued atorvastatin. Last dose was on 07/30/2018. - MRI brain and cervical spine without contrast when medically appropriate - EMG/NCS can be done in the near future to evaluate for the degree of myopathy. Hopefully it can be done tomorrow or . - Neuro checks every 4 hours - PT/OT to evaluate and treat. Exercises in the form of passive and active forms have proved to improve strength and psychological well being in these cases. - ROVING HAND evaluation and treatment - Neurology will continue to follow. - Prognosis guarded given her age, prolonged hospitalization, recurrent intubation due to respiratory failure, infections, and now generalized muscle weakness. The patient may need tracheostomy and PEG placement as recovery of her motor function can take weeks to months. Time spent: I spent a total of 40 minutes reviewing the electronic medical record, examining the patient, reviewing imaging, and discussing the treatment plan with the patient Dr. Ramos.
--- NOTE | 2018-08-01 14:53 | PN ---
Date of Service: 08/01/18 Critical Care Services: Clinical status basically unchanged overnight, but CPK has risen to almost 3, 000 (from 800 yesterday) indicating probably myonecrosis. Patient doesn't complain of pain. Vital Signs: Temp Pulse Resp BP SpO2 FiO2 99.9 F 70 28 154/68 92 35 Physical Exam: Gen:Awake but responds poorly to verbal commands. Lungs: Coarse rhonchi: R > L Abdomen: Not distended Extremities: 1-2+ edema. Swelling left arm, but arm not tight. Fluid Balance (Past 24 Hours): 08/01/18 06:59 Intake Total 2997 Output Total 2270 Balance 727 Weight 164 lb Intake: IV Fluids 1674 Antibiotics NS 1674 Normal Saline IVPB 98 D5W NS 98 Oral Tube Feeding 480 Tube Feeding Flush Amount 550 NG Tube Irrigate Amount 195 Output: Urine 570 Walsh 1700 Liquid Stool Other: Date of Last Bowel 07/29/18 Movement Labs: Laboratory Results - last 24 hr 07/31/18 07/31/18 08/01/18 15:33 20:51 00:07 WBC RBC Hgb Hct MCV MCH MCHC RDW Plt Count MPV Sodium Potassium Chloride Carbon Dioxide Anion Gap BUN Creatinine Est GFR ( Amer) Est GFR (Non-Af Amer) BUN/Creatinine Ratio Glucose POC Glucose (mg/dL) 107 H 104 H 119 H Calcium Total Creatine Kinase 08/01/18 08/01/18 03:00 03:00 WBC 17.2 H Hgb 9.5 L Hct 29 L MCV 96 Plt Count 512 H Sodium 149 H Potassium 3.2 L Chloride 114 H Carbon Dioxide 30 Anion Gap 5 BUN 24 Creatinine 0.43 L Glucose 126 H POC Glucose (mg/dL) Calcium 8.2 L Total Creatine Kinase 2890 Studies: None Nutrition: Tube feedings glycerna at 55 cc/hr Impression: Acute rhabdomyolysis - Origin of myonecrosis unclear - no evidence of compartment syndrome in the left arm. Statins could do it, but patient has been on them for a long time - nevertheless they were d/cd. Critical illness myopathy is possible, and patients recent Hx is high risk for CIM. Neuro evaluation much appreciated. Plan: 1. Maintain IV fluids to prevent myoglobinuric renal failure. 2. Monitor CPKs and renal function. 3. Check a troponin I to make sure the CPK is from skeletal muscle. 4. Consider EMGs for the DX of CIM. Critical Care Time: 50 minutes
[2018-08-01] MEDS ORDERED: Lactated Ringers 1000 ML Bag* 1,000 ML IV SCH (15:00)
[2018-08-02] MEDS ORDERED: Enalaprilat IV* 1.25 MG/ML 1 ML VIAL (1.25 MG) IV ONE (01:08)
[2018-08-02] MEDS ORDERED: Enalaprilat IV* 1.25 MG/ML 2 ML VIAL (2.5 MG) IV ONE (01:08)
--- NOTE | 2018-08-02 01:09 | PN ---
Hospitalist Progress Note Date of Service: 08/02/18 Nurse reports elevated Blood pressure. Vitals reviewed, has been having BP elevated consistently. Will increase lisinopril to 40mg daily, and for now one dose IV vasotec to be given.
[2018-08-02] MEDS: Insulin LISPRO* 1 UNITS UNIT SUBCUT SCH ×5 (04:21→21:22)
[2018-08-02 06:04] LABS: Hematocrit 30 % (35-47); Hemoglobin 9.8 g/dl (12.0-16.0); Mean Corpuscular HGB Conc 32 g/dl (31-36); Mean Corpuscular Hemoglobin 32 pg (27-31); Mean Corpuscular Volume 97 fL (80-97); Mean Platelet Volume 9.2 fL (7.4-10.4); Platelet Count 554 10^3/ul (150-450); Red Blood Count 3.13 10^6/ul (4.00-5.40); Red Cell Distribution Width 15 % (10.5-15); White Blood Count 20.2 10^3/ul (3.5-10.8)
[2018-08-02 06:22] LABS: Albumin 2.3 g/dL (3.2-5.2); Albumin/Globulin Ratio 0.7 (1-3); BUN/Creatinine Ratio 61.1 (8-20); Calcium 8.1 mg/dL (8.6-10.3); EGFR African American 210.4 (>60); EGFR Non-African American 173.9 (>60); Globulin 3.2 g/dL (2-4); Indirect Bilirubin 0.4 mg/dL (0.3-1.0); Potassium 3.3 mmol/L (3.5-5.0); Total Bilirubin 0.5 mg/dL (0.2-1.0); Total Protein 5.5 g/dL (6.4-8.9)
[2018-08-02] MEDS: Enoxaparin(*) 80 MG/0.8 ML SYR SUBCUT SCH ×2 (06:44→16:30)
[2018-08-02] MEDS: Levothyroxine TAB* 150 MCG TAB PO SCH (06:45)
[2018-08-02] MEDS: Vancomycin CAP* 125 MG CAP PO SCH ×4 (08:04→21:36)
[2018-08-02] MEDS: Aspirin 81 mg CHEW TAB* 81 MG TAB.CHEW PO SCH (08:04)
[2018-08-02] MEDS: Lisinopril TAB* 10 MG PO SCH (08:04)
[2018-08-02] MEDS: amLODIPine TAB* 5 MG PO SCH (08:04)
[2018-08-02] MEDS: Potassium Chloride LIQUID* 20 MEQ PACKET PO SCH (08:04)
[2018-08-02] MEDS: Atenolol TAB* 25 MG PO SCH ×2 (08:04→21:35)
[2018-08-02] MEDS: Citalopram TAB* 20 MG PO SCH (08:04)
[2018-08-02] MEDS: Pantoprazole IV* 40 MG IV SCH (08:05)
[2018-08-02] MEDS: metroNIDAZOLE IV 500 MG/100ML* 500 MG/100 ML BAG IVPB SCH ×2 (08:05→16:30)
[2018-08-02] MEDS: Bacitracin OINTMENT* 0.5% 0.5 oz TUBE TOPICAL SCH ×2 (08:47→21:35)
[2018-08-02] MEDS: NS 0.9% 1000 ML** 1,000 ML IV SCH ×2 (09:35→22:08)
[2018-08-02] MEDS: Lactobacillus Acidophilus* 1 TAB PO SCH (09:39)
--- NOTE | 2018-08-02 09:44 | PN ---
Date of Service: 08/02/18 Critical Care Services: Mental status slightly improved - 2 major problems are 1. Rhabdomyolysis (low grade) possibilities include critical illness myopathy ( CIM) vs C difficile infection (Dx on 07/28 and Rx with IV flagyl and oral vancomycin but still has diarrhea) - Has swelling of left arm due to DVT, but do not suspect a compartment syndrome. 2. Aspiration of mouth secretions Vital Signs: Temp Pulse Resp BP SpO2 FiO2 99.5 F 72 30 168/67 96 35 Physical Exam: Gen:Awake and responds to verbal commands intermittently. Is bradykinetic. HEENT: NG (feeding) tube in place Lungs: Coarse rhonchi on both sides R>L Abdomen: Not distended Extremities: 1+ edema, plus swelling left arm Neuro: Very little spontaneous movement. Unable to hold legs up against gravity. Fluid Balance (Past 24 Hours): 08/02/18 06:59 Intake Total 4655 Output Total 1765 Balance 2890 Weight 176 lb Intake: IV Fluids 1829 Antibiotics NS 56 Normal Saline 1773 IVPB 100 NS 100 Medicated IV 214 falgyll 214 Oral Tube Feeding 1522 Tube Feeding Flush Amount 750 NG Tube Irrigate Amount 240 Output: Urine Walsh 1765 Other: Date of Last Bowel Movement Labs: Laboratory Results - last 24 hr 08/01/18 08/02/18 08/02/18 23:37 03:38 05:45 WBC RBC Hgb Hct MCV MCH MCHC RDW Plt Count MPV Sodium 152 H Potassium 3.3 L Chloride 117 H Carbon Dioxide 30 Anion Gap 5 BUN 22 Creatinine 0.36 L Est GFR ( Amer) 210.4 Est GFR (Non-Af Amer) 173.9 BUN/Creatinine Ratio 61.1 H Glucose 144 H POC Glucose (mg/dL) 163 H 159 H Calcium 8.1 L Total Bilirubin 0.50 Direct Bilirubin 0.10 Indirect Bilirubin 0.4 AST 242 H ALT 131 H Alkaline Phosphatase 132 H Total Creatine Kinase 3148 H Total Protein 5.5 L Albumin 2.3 L Globulin 3.2 Albumin/Globulin Ratio 0.7 L 08/02/18 05:45 WBC 20.2 H RBC 3.13 L Hgb 9.8 L Hct 30 L MCV 97 MCH 32 H MCHC 32 RDW 15 Plt Count 554 H MPV 9.2 Studies: None today (CXR pending) Nutrition: Tube feedings Impression: Myonecrosis may be slowing down - CIM still most likely source, but I cannot r/ o C difficile infection as a source. Despite the rise in serum sodium, the intravascular volume is being maintained with IV fluids (i.e., creat is down) to protect against myoglobinuric renal injury. Plan: 1. I will consult ID to review management of c difficile. In meantime, I have d/ c'd the PPI and started probiotics. 2. CXR today 3. Monitori CPKs and check troponin I. Critical Care Time: 50 minutes
--- NOTE | 2018-08-02 11:47 | PN ---
Subjective Date of Service: 08/02/18 Length of Stay: 16 Days Neurology is following for generalized weakness. Interval History: No significant overnight events. She continues to have the same generalized weakness, predominately involving the proximal>distal extremities. Left arm is swollen but not painful. She can barely move the left arm. WBC: 20.2 CPK: 3148 Sodium: 152 Potassium: 3.3 CXR from today showed Patchy infiltrate throughout the right lung with interval worsening. Complete opacification of the left hemithorac with large pleural effusion and compressive atelectasis. Review of Systems: She denied any headaches or visual disturbance. Objective Active Medications: Acetaminophen (Tylenol Adult Liq*) 650 mg PO Q6H PRN PRN Reason: FEVER Last Admin: 07/26/18 02:36 Dose: 650 mg Albuterol/Ipratropium (Duoneb (Albuterol 2.5 Mg/Ipratropium 0.5 Mg)) 1 neb INH [id number] AWAKE PRN PRN Reason: SOB/WHEEZING Amlodipine Besylate (Norvasc Tab*) 10 mg PO DAILY [facility] Last Admin: 08/02/18 08:04 Dose: 10 mg Aspirin (Aspirin 81 Mg Chew Tab*) 81 mg PO DAILY [facility] Last Admin: 08/02/18 08:04 Dose: 81 mg Atenolol (Tenormin Tab*) 25 mg PO BID [facility] Last Admin: 08/02/18 08:04 Dose: 25 mg Bacitracin (Bacitracin Ointment*) 1 applic TOPICAL BID [facility] Last Admin: 08/02/18 08:47 Dose: 1 applic Citalopram Hydrobromide (Celexa Tab*) 20 mg PO DAILY [facility] Last Admin: 08/02/18 08:04 Dose: 20 mg Dextrose (D50w Syringe 50 Ml*) 12.5 gm IV PUSH .FOR FS < 60 - SS PRN PRN Reason: FS < 60 Enoxaparin Sodium (Lovenox(*)) 75 mg SUBCUT Q12H [facility] Last Admin: 08/02/18 06:44 Dose: 75 mg Heparin Sodium (Porcine) (Heparin Flush Picc/Ml/Cvc(*)) 1 - 3 ml FLUSH 0600, 1800 [facility]; Protocol Last Admin: 08/02/18 06:45 Dose: Not Given Metronidazole/Sodium Chloride (Flagyl 500 Mg Ivpb*) 500 mg in 100 mls @ 100 mls /hr IVPB Q8H [facility] Last Admin: 08/02/18 08:05 Dose: 100 mls/hr Sodium Chloride (Ns 0.9% 1000 Ml*) 1,000 mls @ 125 mls/hr IV PER RATE [facility] Last Admin: 08/02/18 09:35 Dose: 125 mls/hr Insulin Human Lispro (Humalog*) 0 units SUBCUT FS Q4 ICU [facility]; Protocol Last Admin: 08/02/18 08:46 Dose: 2 units Lactobacillus Rhamnosus (Lactobacillus Acidophilus*) 1 tab PO DAILY [facility] Last Admin: 08/02/18 09:39 Dose: 1 tab Levothyroxine Sodium (Synthroid Tab*) 150 mcg PO DAILY@0600 [facility] Last Admin: 08/02/18 06:45 Dose: 150 mcg Lisinopril (Prinivil Tab*) 40 mg PO DAILY [facility] Last Admin: 08/02/18 08:04 Dose: 40 mg Potassium Chloride (Klor-Con Liquid*) 40 meq PO DAILY [facility] Last Admin: 08/02/18 08:04 Dose: 40 meq Vancomycin HCl (Vancomycin Cap*) 125 mg PO QID [facility] Last Admin: 08/02/18 08:04 Dose: 125 mg 08/02/18 11:01 Temperature 99.9 F Pulse Rate 70 Respiratory 27 Rate Blood Pressure 136/59 (mmHg) O2 Sat by Pulse 97 Oximetry Intake and Output Last 24 Hours 07/31/18 08/01/18 08/02/18 08/03/18 06:59 06:59 06:59 06:59 Intake Total 1092 2997 4655 Output Total 1825 2270 1765 445 Balance -628 544 0461 -445 Weight 171 lb 1.259 oz 164 lb 0.383 oz 176 lb 9.444 oz Intake: IV Fluids 142 1674 1829 Antibiotics 142 NS 1674 56 Normal Saline 1773 IVPB 98 100 NS 98 100 Medicated IV 214 falgyll 214 Oral 0 Tube Feeding 592 748 3138 Tube Feeding Flush Amount 200 550 750 NG Tube Irrigate Amount 195 240 Output: Urine 500 570 Walsh 1325 1700 1765 445 Other: Date of Last Bowel 07/29/18 Movement Oxygen Devices in Use Now: High Flow Nasal Cannula Neurology Exam: General: Ill appearing elderly female in no acute distress. She has a right NG tube. She was suctioned during the examination. HEENT: Normocephalic/atraumatic, sclera anicteric, mucous membranes moist Neck: Supple Chest: bilateral anterior crackles. Cardiovascular: Regular rate and rhythm without murmurs, rubs, gallops. She has 3+ edema in the left limb 2+ in bilateral lower extremities. The left arm is elevated. Neurological Findings: She is drowsy appearing. Appears generally weak. Less verbal than yesterday. Cranial Nerve: PERRL, EOM-I, no facial asymmetry. Motor R/L: shoulder abduction 3/1, elbow flexion 3/1, elbow extension 3/1, wrist extension 3/1, wrist flexion 3/1, finger abduction 3/1. Hip flexion 1/1, knee extension 2/2, knee flexion 3/3, knee extension 3/3, ankle dorsi and plantar flexion 3/3. Overall generalized 3/5 weakness with 2/5 weakness in the left upper extremity. She has proximal>distal extremity weakness. Reduce tone throughout. No tremors. Sensation: intact to LT/PP bilaterally upper and lower extremities Deep Tendon Reflex: 1 + on the right and 0 on the left upper extremity. Trace in the ankles bilaterally. Absent at the ankles. Coordination test: unable to perform due to generalized weakness Gait: n/a due to generalized weakness Result Diagrams: 08/02/18 05:45 08/02/18 05:45 Microbiology and Other Data: Diagnostic Imaging: No new intracranial imaging. Assessment/Plan 1. 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 Other differential diagnosis include statin myopathy and superimposed cervical spondylosis without myelopathy. 2. Acute infectious and hypoxic encephalopathy- she appeared more delirious today than usual. This is multifactorial and aspiration pneumonia and C-diff are the likely cause. Defer to the primary team. 2. Hyperckemia- seems to be reaching a peak. There is no evidence of compartment syndrome on the left arm. Critical illness myopathy, stain myopathy , or infectious induce hyperckemia are all on the differential. Recommendations: - Repeat CK level tomorrow. - Cannot have MRI testing due to pacemaker. - EMG/NCS can be done in the near future to evaluate for the degree of myopathy. Hopefully it can be done if stable from the medical standpoint. - Neuro checks every 4 hours - PT/OT to evaluate and treat. Exercises in the form of passive and active forms have proved to improve strength and psychological well being in these cases. - BUSINESS OFFICE MANAGER evaluation and treatment - Neurology will continue to follow. - Prognosis guarded given her age, prolonged hospitalization, infections, and now generalized muscle weakness. The patient may need tracheostomy and PEG placement as if she survives this hospitalization, muscle recovery can take weeks to months. Time spent: I spent a total of 40 minutes reviewing the electronic medical record, examining the patient, reviewing imaging, and discussing the treatment plan with the patient and Dr. Ramos.
[2018-08-02] MEDS ORDERED: Propofol* 100 ML ONE (12:43)
[2018-08-02] MEDS ORDERED: Succinylcholine* 20 MG/ML 10 ML VIAL ONE (12:44)
[2018-08-02] MEDS ORDERED: Etomidate* 2 MG/ML 20 ML VIAL (40 MG) ONE (12:56)
[2018-08-02] MEDS ORDERED: fentaNYL* 50 MCG/ML 5 ML VIAL (250 MCG VIAL) ONE (12:56)
[2018-08-02] MEDS ORDERED: Acetylcysteine ORAL SOL* 200 MG/ML VIAL ONE (13:11)
--- NOTE | 2018-08-02 14:05 | PN ---
Progress Note - Progress Note Date of Service: 08/02/18 Note: CXR today shows complete atelectasis of left lung, most likely from retained secretions - this prompted the following two procedures: 1. Endotracheal intubation - 7.5 Bengali ET tube inserted with return of copious thick, bloody secretions. 2. Bronchoscopy - Performed after intubation - airways cleared with aid of mucomyst solution (20% diluted with saline) Post-procedure x-ray pending. This is the 3rd intubation for this patient and , considering her problems with retained secretions, a tracheostomy is indicated.
[2018-08-02] MEDS ORDERED: NS 0.9% 500 ML* 500 ML IV ONE (15:05)
--- NOTE | 2018-08-02 18:33 | PRO ---
PROCEDURE NOTE: DATE OF PROCEDURE: 08/02/18 - ROOM #ICU-06 PROCEDURE: Endotracheal intubation. INDICATIONS: The patient is a 78-year-old female who has been hospitalized for almost 1 month with recurrent episodes of respiratory failure requiring mechanical ventilation. She was extubated approximately 5 days ago and has had difficulty with aspiration of mouth mouth secretions. Today,chest x-ray showed a complete white-out of the left lung, most likely representing atelectasis from retained secretions. Therefore, an endotracheal intubation was performed. DESCRIPTION OF PROCEDURE: Trachea was entered under videoscopic control with a 7.5- Upper Sorbian endotracheal tube. The oropharynx was noted to be full of dried bloody secretions and there were copious thick secretions removed from the upper airway shortly after intubation. Airway placement was verified by end- tidal CO2 and subsequently by bronchoscopy (see other procedure note). [id number] #: [id number] MTDD
--- NOTE | 2018-08-02 19:43 | PRO ---
PROCEDURE NOTE: DATE OF PROCEDURE: 08/02/18 - ROOM#ICU-06 PROCEDURE: Flexible fiberoptic bronchoscopy. DESCRIPTION OF PROCEDURE: This patient is a 78-year-old white female, who was recently intubated for a complete atelectasis of the left lung secondary to retained secretions. Following the intubation, the patient underwent a flexible fiberoptic bronchoscopy and the airways in the left lung were cleared with Mucomyst and suction. By the end of the procedure, airways in the right and left lung were clear up to the 4th order airways. Postprocedure x-ray will be obtained. [id number]/[id number] #: [id number] MTDD
[2018-08-02] MEDS: Acetaminophen ADULT LIQ* 650 MG/20.3 ML UDC PO PRN (22:15)
[2018-08-03] MEDS: Insulin LISPRO* 1 UNITS UNIT SUBCUT SCH ×6 (00:38→21:43)
[2018-08-03] MEDS: metroNIDAZOLE IV 500 MG/100ML* 500 MG/100 ML BAG IVPB SCH ×3 (00:38→15:48)
[2018-08-03] MEDS: Propofol* 100 ML IV SCH ×3 (00:51→20:42)
[2018-08-03] MEDS: Levothyroxine TAB* 150 MCG TAB PO SCH (05:23)
[2018-08-03] MEDS: Enoxaparin(*) 80 MG/0.8 ML SYR SUBCUT SCH ×2 (05:23→17:09)
[2018-08-03] MEDS: NS 0.9% 1000 ML** 1,000 ML IV SCH ×2 (05:36→20:43)
[2018-08-03 05:46] LABS: Hematocrit 25 % (35-47); Hemoglobin 8.1 g/dl (12.0-16.0); Mean Corpuscular HGB Conc 32 g/dl (31-36); Mean Corpuscular Hemoglobin 31 pg (27-31); Mean Corpuscular Volume 98 fL (80-97); Mean Platelet Volume 9.3 fL (7.4-10.4); Platelet Count 397 10^3/ul (150-450); Red Blood Count 2.58 10^6/ul (4.00-5.40); Red Cell Distribution Width 15 % (10.5-15); White Blood Count 12.3 10^3/ul (3.5-10.8)
[2018-08-03] MEDS: Lactobacillus Acidophilus* 1 TAB PO SCH (07:45)
[2018-08-03] MEDS: Lisinopril TAB* 10 MG PO SCH (07:45)
[2018-08-03] MEDS: Potassium Chloride LIQUID* 20 MEQ PACKET PO SCH (07:45)
[2018-08-03] MEDS: Citalopram TAB* 20 MG PO SCH (07:45)
[2018-08-03] MEDS: Vancomycin CAP* 125 MG CAP PO SCH ×5 (07:45→21:30)
[2018-08-03] MEDS: Atenolol TAB* 25 MG PO SCH ×2 (07:45→21:46)
[2018-08-03] MEDS: amLODIPine TAB* 5 MG PO SCH (07:45)
[2018-08-03] MEDS: Aspirin 81 mg CHEW TAB* 81 MG TAB.CHEW PO SCH (07:45)
[2018-08-03] MEDS: Bacitracin OINTMENT* 0.5% 0.5 oz TUBE TOPICAL SCH ×2 (08:45→21:22)
[2018-08-03] MEDS ORDERED: Furosemide IV* 10 MG/ML VIAL (40 MG) IV ONE (09:04)
[2018-08-03 10:28] LABS: BUN/Creatinine Ratio 68.4 (8-20); Calcium 7.5 mg/dL (8.6-10.3); EGFR African American 197.7 (>60); EGFR Non-African American 163.4 (>60); Potassium 3.9 mmol/L (3.5-5.0)
[2018-08-03] MEDS ORDERED: fentaNYL* 50 MCG/ML 2 ML VIAL (100 MCG VIAL) ONE (14:39)
--- NOTE | 2018-08-03 15:12 | PN ---
Subjective Date of Service: 08/03/18 Length of Stay: 17 Days Neurology is following for generalized weakness. Interval History: She developed respiratory failure again yesterday and was re-intubated (for the third time during this hospitalization). She is still awake off propofol and responds appropriately. She agreed to undergo the EMG/NCS but appeared uncomfortable and nodded yes to aborting the study. Enough information was gathered. Please see the report in the medical chart but there is electrodiagnostic evidence of generalized irritable, distal and proximal myopathy and superimposed polyneuropathy consistent with the patient's diagnosis of critical illness myopathy and polyneuropathy. She still has generalized weakness, left more than right upper extremity but symmetric severe weakness of the lower extremities bilaterally. Review of Systems: intubated. She nods no to headache or visual disturbance. Objective Active Medications: Acetaminophen (Tylenol Adult Liq*) 650 mg PO Q6H PRN PRN Reason: FEVER Last Admin: 08/02/18 22:15 Dose: 650 mg Albuterol/Ipratropium (Duoneb (Albuterol 2.5 Mg/Ipratropium 0.5 Mg)) 1 neb INH [id number] AWAKE PRN PRN Reason: SOB/WHEEZING Amlodipine Besylate (Norvasc Tab*) 10 mg PO DAILY [facility] Last Admin: 08/03/18 07:45 Dose: 10 mg Aspirin (Aspirin 81 Mg Chew Tab*) 81 mg PO DAILY [facility] Last Admin: 08/03/18 07:45 Dose: 81 mg Atenolol (Tenormin Tab*) 25 mg PO BID [facility] Last Admin: 08/03/18 07:45 Dose: 25 mg Bacitracin (Bacitracin Ointment*) 1 applic TOPICAL BID [facility] Last Admin: 08/03/18 08:45 Dose: 1 applic Citalopram Hydrobromide (Celexa Tab*) 20 mg PO DAILY [facility] Last Admin: 08/03/18 07:45 Dose: 20 mg Dextrose (D50w Syringe 50 Ml*) 12.5 gm IV PUSH .FOR FS < 60 - SS PRN PRN Reason: FS < 60 Enoxaparin Sodium (Lovenox(*)) 75 mg SUBCUT Q12H [facility] Last Admin: 08/03/18 05:23 Dose: 75 mg Fentanyl Citrate (Fentanyl*) 50 mcg IV SLOW PU Q4H PRN PRN Reason: PAIN Heparin Sodium (Porcine) (Heparin Flush Picc/Ml/Cvc(*)) 1 - 3 ml FLUSH 0600, 1800 [facility]; Protocol Last Admin: 08/03/18 07:37 Dose: Not Given Metronidazole/Sodium Chloride (Flagyl 500 Mg Ivpb*) 500 mg in 100 mls @ 100 mls /hr IVPB Q8H [facility] Last Admin: 08/03/18 07:46 Dose: 100 mls/hr Propofol (Diprivan*) 100 mls @ 4.806 mls/hr IV .(Initial Rate) [facility]; Protocol Last Admin: 08/03/18 09:58 Dose: 4.806 mls/hr Sodium Chloride (Ns 0.9% 1000 Ml*) 1,000 mls @ 75 mls/hr IV PER RATE [facility] Insulin Human Lispro (Humalog*) 0 units SUBCUT FS Q4 ICU [facility]; Protocol Last Admin: 08/03/18 12:08 Dose: Not Given Lactobacillus Rhamnosus (Lactobacillus Acidophilus*) 1 tab PO DAILY [facility] Last Admin: 08/03/18 07:45 Dose: 1 tab Levothyroxine Sodium (Synthroid Tab*) 150 mcg PO DAILY@0600 [facility] Last Admin: 08/03/18 05:23 Dose: 150 mcg Lisinopril (Prinivil Tab*) 40 mg PO DAILY [facility] Last Admin: 08/03/18 07:45 Dose: 40 mg Potassium Chloride (Klor-Con Liquid*) 40 meq PO DAILY [facility] Last Admin: 08/03/18 07:45 Dose: 40 meq Vancomycin HCl (Vancomycin Cap*) 125 mg PO QID [facility] Last Admin: 08/03/18 12:13 Dose: 125 mg Vital Signs 08/02/18 08/02/18 08/02/18 15:00 15:01 15:15 Temperature 99.3 F 99.3 F 99.3 F Pulse Rate 70 70 70 Respiratory Rate Blood Pressure 119/55 123/58 (mmHg) O2 Sat by Pulse 100 100 100 Oximetry 08/02/18 08/02/18 08/02/18 15:30 15:45 16:00 Temperature 99.3 F 99.3 F 99.0 F Pulse Rate 70 70 70 Respiratory 14 Rate Blood Pressure 122/64 126/60 (mmHg) O2 Sat by Pulse 100 100 100 Oximetry 08/02/18 08/02/18 08/02/18 16:01 16:15 16:30 Temperature 99.0 F 99.3 F 99.5 F Pulse Rate 70 70 70 Respiratory Rate Blood Pressure 122/56 120/59 114/58 (mmHg) O2 Sat by Pulse 100 100 100 Oximetry 08/02/18 08/02/18 08/02/18 16:45 17:00 17:01 Temperature 99.5 F 99.7 F 99.7 F Pulse Rate 70 70 70 Respiratory 14 Rate Blood Pressure 113/56 121/59 (mmHg) O2 Sat by Pulse 99 98 99 Oximetry 08/02/18 08/02/18 08/02/18 17:15 17:30 17:45 Temperature 99.7 F 99.7 F 99.7 F Pulse Rate 70 70 70 Respiratory Rate Blood Pressure 123/65 129/61 140/58 (mmHg) O2 Sat by Pulse 98 97 97 Oximetry 08/02/18 08/02/18 08/02/18 18:00 18:01 18:16 Temperature 99.7 F 99.7 F 99.7 F Pulse Rate 70 70 70 Respiratory 15 Rate Blood Pressure 134/63 126/69 (mmHg) O2 Sat by Pulse 97 96 99 Oximetry 08/02/18 08/02/18 08/02/18 18:30 18:45 19:00 Temperature 99.7 F 99.9 F 99.9 F Pulse Rate 70 70 70 Respiratory 21 Rate Blood Pressure 131/59 143/68 (mmHg) O2 Sat by Pulse 98 98 99 Oximetry 08/02/18 08/02/18 08/02/18 19:01 19:16 19:31 Temperature 99.9 F 99.9 F 100.0 F Pulse Rate 70 70 70 Respiratory Rate Blood Pressure 145/64 126/60 127/58 (mmHg) O2 Sat by Pulse 100 98 98 Oximetry 08/02/18 08/02/18 08/02/18 19:45 19:56 20:00 Temperature 100.0 F 100.0 F Pulse Rate 70 72 70 Respiratory 17 19 Rate Blood Pressure 126/60 121/58 (mmHg) O2 Sat by Pulse 99 99 97 Oximetry 08/02/18 08/02/18 08/02/18 20:15 20:30 20:45 Temperature 100.2 F 100.2 F 100.2 F Pulse Rate 70 70 70 Respiratory Rate Blood Pressure 127/60 123/68 129/59 (mmHg) O2 Sat by Pulse 97 98 97 Oximetry 08/02/18 08/02/18 08/02/18 21:00 21:15 21:30 Temperature 100.4 F 100.4 F 100.4 F Pulse Rate 70 70 70 Respiratory 20 Rate Blood Pressure 126/60 125/58 122/58 (mmHg) O2 Sat by Pulse 97 98 97 Oximetry 08/02/18 08/02/18 08/02/18 21:45 22:00 22:01 Temperature 100.6 F 100.6 F 100.6 F Pulse Rate 70 70 70 Respiratory 20 Rate Blood Pressure 129/59 127/46 (mmHg) O2 Sat by Pulse 98 97 96 Oximetry 08/02/18 08/02/18 08/02/18 22:03 22:16 22:31 Temperature 100.6 F 100.8 F 100.8 F Pulse Rate 70 70 70 Respiratory Rate Blood Pressure 132/48 115/44 (mmHg) O2 Sat by Pulse 96 97 96 Oximetry 08/02/18 08/02/18 08/02/18 22:45 23:00 23:01 Temperature 100.8 F 100.8 F 100.8 F Pulse Rate 70 70 70 Respiratory 23 Rate Blood Pressure 100/40 118/45 (mmHg) O2 Sat by Pulse 96 97 98 Oximetry 08/02/18 08/02/18 08/02/18 23:15 23:16 23:30 Temperature 100.8 F 100.8 F 100.8 F Pulse Rate 70 70 70 Respiratory Rate Blood Pressure 112/44 108/43 115/47 (mmHg) O2 Sat by Pulse 96 95 96 Oximetry 08/02/18 08/03/18 08/03/18 23:45 00:00 00:31 Temperature 100.8 F 100.8 F 100.6 F Pulse Rate 70 70 70 Respiratory 20 Rate Blood Pressure 120/46 141/58 129/52 (mmHg) O2 Sat by Pulse 96 97 96 Oximetry 08/03/18 08/03/18 08/03/18 01:00 01:01 01:31 Temperature 100.4 F 100.4 F 100.4 F Pulse Rate 70 70 70 Respiratory 17 Rate Blood Pressure 119/52 105/49 (mmHg) O2 Sat by Pulse 96 96 95 Oximetry 08/03/18 08/03/18 08/03/18 02:00 02:01 02:30 Temperature 100.4 F 100.4 F 100.2 F Pulse Rate 70 70 70 Respiratory 17 Rate Blood Pressure 117/53 132/64 (mmHg) O2 Sat by Pulse 96 96 95 Oximetry 08/03/18 08/03/18 08/03/18 03:00 03:17 03:30 Temperature 100.0 F 100.0 F 99.9 F Pulse Rate 78 71 70 Respiratory 15 Rate Blood Pressure 106/60 117/62 (mmHg) O2 Sat by Pulse 94 94 96 Oximetry 08/03/18 08/03/18 08/03/18 04:00 04:01 04:30 Temperature 99.7 F 99.7 F 99.7 F Pulse Rate 70 70 70 Respiratory 18 Rate Blood Pressure 115/61 118/69 (mmHg) O2 Sat by Pulse 97 96 96 Oximetry 08/03/18 08/03/18 08/03/18 05:00 05:01 05:30 Temperature 99.5 F 99.5 F 99.5 F Pulse Rate 70 70 70 Respiratory 25 Rate Blood Pressure 105/57 112/57 (mmHg) O2 Sat by Pulse 97 97 97 Oximetry 08/03/18 08/03/18 08/03/18 05:57 06:00 06:01 Temperature 99.5 F 99.5 F Pulse Rate 75 73 Respiratory 21 Rate Blood Pressure 124/67 (mmHg) O2 Sat by Pulse 96 96 Oximetry 08/03/18 08/03/18 08/03/18 06:30 06:38 07:00 Temperature 99.7 F 99.5 F 99.7 F Pulse Rate 70 70 70 Respiratory 20 Rate Blood Pressure 116/56 116/56 128/63 (mmHg) O2 Sat by Pulse 96 96 97 Oximetry 08/03/18 08/03/18 08/03/18 07:01 07:30 08:00 Temperature 99.7 F 99.7 F 99.5 F Pulse Rate 70 70 70 Respiratory 19 Rate Blood Pressure 122/59 120/60 (mmHg) O2 Sat by Pulse 97 97 96 Oximetry 08/03/18 08/03/18 08/03/18 08:01 08:30 09:00 Temperature 99.5 F 99.5 F 99.3 F Pulse Rate 70 70 Respiratory 22 Rate Blood Pressure 112/66 103/57 (mmHg) O2 Sat by Pulse 97 91 Oximetry 08/03/18 08/03/18 08/03/18 09:01 09:30 09:31 Temperature 99.3 F 99.5 F 99.5 F Pulse Rate 70 70 70 Respiratory Rate Blood Pressure 90/50 87/50 (mmHg) O2 Sat by Pulse 93 94 95 Oximetry 08/03/18 08/03/18 08/03/18 09:39 09:47 10:00 Temperature 99.5 F 99.3 F Pulse Rate 70 70 Respiratory 26 Rate Blood Pressure 93/49 (mmHg) O2 Sat by Pulse 93 97 Oximetry 08/03/18 08/03/18 08/03/18 10:01 10:30 11:00 Temperature 99.3 F 99.5 F 99.5 F Pulse Rate 70 70 70 Respiratory 23 Rate Blood Pressure 130/58 116/57 113/59 (mmHg) O2 Sat by Pulse 97 95 94 Oximetry 08/03/18 08/03/18 08/03/18 11:01 11:30 12:00 Temperature 99.5 F 99.5 F 99.5 F Pulse Rate 70 68 70 Respiratory 12 Rate Blood Pressure 125/59 127/63 (mmHg) O2 Sat by Pulse 94 94 95 Oximetry 08/03/18 08/03/18 08/03/18 12:01 12:30 13:00 Temperature 99.5 F 99.5 F 99.7 F Pulse Rate 70 70 70 Respiratory 15 Rate Blood Pressure 113/53 112/55 (mmHg) O2 Sat by Pulse 95 95 95 Oximetry 08/03/18 08/03/18 08/03/18 13:01 13:30 14:00 Temperature 99.7 F 99.7 F 99.5 F Pulse Rate 70 70 70 Respiratory 23 Rate Blood Pressure 103/56 108/60 (mmHg) O2 Sat by Pulse 96 97 97 Oximetry 08/03/18 14:42 Temperature Pulse Rate Respiratory 16 Rate Blood Pressure (mmHg) O2 Sat by Pulse Oximetry Intake and Output Last 24 Hours 08/01/18 08/02/18 08/03/18 08/04/18 06:59 06:59 06:59 06:59 Intake Total 1877 3315 5787 1122 Output Total 2270 1765 1545 1342 Balance 727 2890 4242 -220 Weight 164 lb 0.383 oz 176 lb 9.444 oz 183 lb 3.266 oz Intake: IV Fluids 1674 1829 3043 958 NS 1674 56 52 Normal Saline 1773 2991 958 IVPB 98 100 NS 98 100 Medicated IV 214 419 164 flagyl 214 312 100 propofol 107 64 Tube Feeding 480 1522 1125 Tube Feeding Flush Amount 735 799 4507 NG Tube Irrigate Amount 195 240 Output: Urine 570 Walsh 1700 1765 1345 1342 Liquid Stool 200 Other: Date of Last Bowel 07/29/18 Movement Oxygen Devices in Use Now: Endotracheal Tube, Mechanical Ventilator Neurology Exam: General: Ill appearing elderly female who is now intubated and is on sedation. HEENT: Normocephalic/atraumatic, sclera anicteric, mucous membranes moist Neck: Supple Chest: bilateral anterior crackles. Cardiovascular: Regular rate and rhythm without murmurs, rubs, gallops. She has 3+ edema in the left limb 2+ in bilateral lower extremities. The left arm is elevated. Neurological Findings: Awake, appears alert but intubated patient in no acute distress. She is on low sedation. She is appropriately responding to command. Cranial Nerve: PERRL, EOM-I, no facial asymmetry. Motor R/L: shoulder abduction 2/1, elbow flexion 3/1, elbow extension 3/1, wrist extension 2/1, wrist flexion 2/1, finger abduction 3/1. Hip flexion 1/1, knee extension 2/2, knee flexion 2/2, knee extension 2/2, ankle dorsi and plantar flexion 2/2. Overall generalized 2/5 weakness with 1-2/5 weakness in the left upper extremity. She has proximal>distal extremity weakness. Reduce tone throughout. No tremors. Sensation: intact to LT/PP bilaterally upper and lower extremities Deep Tendon Reflex: 1 + on the right and 0 on the left upper extremity. Trace in the ankles bilaterally. Absent at the ankles. Coordination test: unable to perform due to generalized weakness Gait: n/a due to generalized weakness Result Diagrams: 08/03/18 05:30 08/03/18 09:56 Additional Lab and Data: Free T4: 0.56 Total T3: 27 TSH: 1.20 CK: 2890 on 08/01/2018 Microbiology and Other Data: Diagnostic Imaging: No new intracranial imaging. Assessment/Plan 1. 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 CK is trending down but unfortunately she is not getting any better. There is no clinical correlation between CK level and clinical examination. The CK may normalize after a few weeks but the muscle weakness may persists for months. 2. Acute infectious and hypoxic encephalopathy- re-intubated yesterday. She will be scheduled for a tracheostomy. 3. C-Diff 4. 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 - ID is following - Neuro checks every 4 hours - Prognosis guarded given her age, prolonged hospitalization, infections, and now generalized muscle weakness. She will need trach, PEG, and long-term care in a ventilator supported facility. Time spent: I spent a total of 25 minutes.
--- NOTE | 2018-08-03 18:20 | PN ---
Date of Service: 08/03/18 Critical Care Services: Patient continues on the ventilator. Nerve conduction and EMG studies are consistent with the Dx of critical illness neuromyopathy. CPK down a little today (from 3,000 to 2,400). Left lung remains re-expanded on the ventilator. Vital Signs: Temp Pulse Resp BP SpO2 FiO2 99.9 F 70 16 106/48 97 35 Physical Exam: Gen:unresponsive (on propofol) Lungs:Rhonchi both lungs Abdomen:Not distended Extremities: swelling left arm, but also 2+ edema in lower limbs. Fluid Balance (Past 24 Hours): 08/03/18 06:59 Intake Total 5787 Output Total 1545 Balance 4242 Weight 183 lb Intake: IV Fluids 3043 NS 52 Normal Saline 2991 IVPB NS Medicated IV 419 flagyl 312 propofol 107 Tube Feeding 1125 Tube Feeding Flush Amount 1200 NG Tube Irrigate Amount Output: Urine Walsh 1345 Liquid Stool 200 Other: Date of Last Bowel Movement Labs: 08/03/18 08/03/18 08/03/18 00:12 04:16 05:30 WBC 12.3 H RBC 2.58 L Hgb 8.1 L Hct 25 L MCV 98 H MCH 31 MCHC 32 RDW 15 Plt Count 397 MPV 9.3 Sodium Potassium Chloride Carbon Dioxide Anion Gap BUN Creatinine Est GFR ( Amer) Est GFR (Non-Af Amer) BUN/Creatinine Ratio Glucose POC Glucose (mg/dL) 151 H 108 H Calcium Total Creatine Kinase 08/03/18 08/03/18 08/03/18 05:30 08:11 09:56 WBC RBC Hgb Hct MCV MCH MCHC RDW Plt Count MPV Sodium 149 H Potassium 3.9 Chloride 118 H Carbon Dioxide 26 Anion Gap 5 BUN 26 H Creatinine 0.38 L Est GFR ( Amer) 197.7 Est GFR (Non-Af Amer) 163.4 BUN/Creatinine Ratio 68.4 H Glucose 121 H POC Glucose (mg/dL) 174 H Calcium 7.5 L Total Creatine Kinase 2490 H Studies: CXR: as mentioned Nutrition: Tube feedings Impression: 1. 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 Rhabdomyolysis resolving - no evidence of renal injury Plan: 1. Have consulted surgery for tracheostomy 2. Appreciate neurology service input regarding the neuromyopathy. 3. Will continue to monitor CPKs and maintain hydration Critical Care Time: 50 minutes
[2018-08-03] MEDS ORDERED: VANCOMYCIN PO SCH (23:30)
[2018-08-04] MEDS: metroNIDAZOLE IV 500 MG/100ML* 500 MG/100 ML BAG IVPB SCH ×3 (01:10→20:23)
[2018-08-04] MEDS: Insulin LISPRO* 1 UNITS UNIT SUBCUT SCH ×6 (01:24→20:23)
[2018-08-04] MEDS: NS 0.9% 1000 ML** 1,000 ML IV SCH (04:04)
[2018-08-04] MEDS: Propofol* 100 ML IV SCH ×2 (04:05→13:25)
[2018-08-04 05:44] LABS: Hematocrit 26 % (35-47); Hemoglobin 8.2 g/dl (12.0-16.0); Mean Corpuscular HGB Conc 32 g/dl (31-36); Mean Corpuscular Hemoglobin 31 pg (27-31); Mean Corpuscular Volume 97 fL (80-97); Mean Platelet Volume 9.5 fL (7.4-10.4); Platelet Count 355 10^3/ul (150-450); Red Blood Count 2.62 10^6/ul (4.00-5.40); Red Cell Distribution Width 17 % (10.5-15); White Blood Count 8.7 10^3/ul (3.5-10.8)
[2018-08-04] MEDS ORDERED: VANCOMYCIN NG TUBE SCH (06:19)
[2018-08-04] MEDS: Enoxaparin(*) 80 MG/0.8 ML SYR SUBCUT SCH ×2 (06:37→19:16)
[2018-08-04] MEDS: Levothyroxine TAB* 150 MCG TAB PO SCH (06:37)
[2018-08-04] MEDS: VANCOMYCIN NG TUBE SCH ×4 (10:11→22:11)
[2018-08-04] MEDS: amLODIPine TAB* 5 MG PO SCH (10:12)
[2018-08-04] MEDS: Potassium Chloride LIQUID* 20 MEQ PACKET PO SCH (10:12)
[2018-08-04] MEDS: Lisinopril TAB* 10 MG PO SCH (10:13)
[2018-08-04] MEDS: Lactobacillus Acidophilus* 1 TAB PO SCH (10:13)
[2018-08-04] MEDS: Citalopram TAB* 20 MG PO SCH (10:13)
[2018-08-04] MEDS: Bacitracin OINTMENT* 0.5% 0.5 oz TUBE TOPICAL SCH ×2 (10:14→22:11)
[2018-08-04] MEDS: Atenolol TAB* 25 MG PO SCH ×2 (10:14→22:14)
[2018-08-04] MEDS: Aspirin 81 mg CHEW TAB* 81 MG TAB.CHEW PO SCH (10:14)
[2018-08-04] MEDS ORDERED: NS 0.9% IV ONE (13:15)
[2018-08-04] MEDS ORDERED: PROTAMINE SULFATE IV ONE (13:15)
[2018-08-04] MEDS: fentaNYL* 50 MCG/ML 2 ML VIAL (100 MCG VIAL) IV SLOW PU PRN (14:15)
[2018-08-04] MEDS ORDERED: fentaNYL* 50 MCG/ML 5 ML VIAL (250 MCG VIAL) ONE (14:44)
[2018-08-04] MEDS ORDERED: Lidocaine 1% INJ* 10 MG/ML 30 ML SDV ONE (15:30)
[2018-08-04] MEDS ORDERED: KETAMINE HCL* 50 MG/ML 10 ML VIAL ONE (15:42)
[2018-08-04] MEDS ORDERED: fentaNYL* 50 MCG/ML 2 ML VIAL (100 MCG VIAL) ONE ×2 (15:42→16:57)
[2018-08-04] MEDS ORDERED: Midazolam* 1 MG/ML 5 ML VIAL (5 MG) ONE (15:44)
[2018-08-04] MEDS ORDERED: Propofol* 10 MG/ML 20 ML BTL ONE (15:45)
[2018-08-04] MEDS ORDERED: Glycopyrrolate IV* 0.2 MG/ML 1 ML VIAL ONE (15:45)
[2018-08-04] MEDS ORDERED: Lidocaine 2% PF * 5 ML VIAL ONE (15:45)
[2018-08-04] MEDS ORDERED: Succinylcholine* 20 MG/ML 10 ML VIAL ONE (15:45)
[2018-08-04] MEDS ORDERED: fentaNYL* 50 MCG/ML 2 ML VIAL (100 MCG VIAL) IV SLOW PU ONE (16:00)
--- NOTE | 2018-08-04 16:09 | PN ---
Date of Service: 08/04/18 Critical Care Services: Patient remains on ventilator, and is scheduled for tracheostomy this afternoon. Vital Signs: Temp Pulse Resp BP SpO2 FiO2 99.3 F 70 18 117/56 94 21 Physical Exam: Gen:Unresponsive (on propofol) HEENT:Orotracheal tube in place. Lungs: rhonchi both sides Extremities: 2+ edema lower extremities, and swelling left arm Fluid Balance (Past 24 Hours): 08/03/18 08/04/18 06:59 06:59 Intake Total 5787 4602 Output Total 1545 2278 Balance 4242 2324 Weight 183 lb 3.266 oz 185 lb 3.013 oz Intake: IV Fluids 3043 2533 Antibiotics 200 NS 52 Normal Saline 2991 2333 IVPB NS Medicated IV 419 335 flagyl 312 100 propofol 107 235 Tube Feeding 1125 1046 Tube Feeding Flush Amount 1200 638 NG Tube Irrigate Amount 50 Output: Walsh 1345 1903 Liquid Stool 200 375 Tube Feeding Residual 0 Amount Wasted Labs: 08/04/18 08/04/18 08/04/18 05:28 05:28 05:32 WBC 8.7 RBC 2.62 L Hgb 8.2 L Hct 26 L MCV 97 MCH 31 MCHC 32 RDW 17 H Plt Count 355 MPV 9.5 POC Glucose (mg/dL) 119 H Total Creatine Kinase 1751 H Studies: CXR: left lung remains expanded. Nutrition: Tube feedings Impression: 1. Rhabdomyolysis continues to improve. 2. Is accumulating fluid. Plan: 1. Tracheostomy today. 2. Attempt diuresis (despite high CPK). Patient's family at bedside and have signed consent for tracheostomy. Critical Care Time: 30 minutes
[2018-08-04] MEDS ORDERED: EPHEDrine (Pressors)* 50 MG/ML VIAL ONE (16:17)
--- NOTE | 2018-08-04 17:20 | BRIEFOPN ---
Brief Operative Note - Surgery Procedures: Procedures Pre op Dx: respiratory failure POst op Dx: same Procedure?: tracheostomy surgeon: Duong Asst: Emelia EBL min 8Fr unfenestrated tracheostomy
--- NOTE | 2018-08-04 22:19 | OP ---
CC: Dr. Jojo Clark; [facility] OPERATIVE REPORT: DATE OF OPERATION: 08/04/18 DATE OF : 38 SURGEON: Bernabe Watters MD. MEDICAL TECHNOLOGIST BLOOD BANK: John Kapoor MD. ANESTHESIOLOGIST: Dr. Cuenca. PRE-OP DIAGNOSIS: Respiratory failure. POST-OP DIAGNOSIS: Respiratory failure. OPERATIVE PROCEDURE: Tracheostomy. ESTIMATED BLOOD LOSS: Minimal. FLUIDS: Minimal crystalloid fluid given. SPECIMENS: None. An 8-Lithuanian nonfenestrated tracheostomy tube placed. INDICATIONS: Ms. Davis is a 78-year-old female admitted to the ICU with respiratory failure, being intubated. The case was discussed with the critical care medicine team and the recommendation was f or tracheostomy. At our first discussion, we felt the patient would benefit from a percutaneous trac heostomy. This was attempted at the bedside. This occurred during a bronchoscopy by the critical car e team. The area was prepped sterilely and I attempted to place a needle into the trachea percutaneo usly, but this did not prove possible and I felt it would be safer to treat the patient in the operat ing room. I discussed the case to the family going over the risks, benefits, and alternatives to ope n tracheostomy describing the possible complications which include, but are not limited to bleeding, infection, need for additional procedure, the possibility of the trachea getting dislodged, and the p ossibility of even . Consent was signed by the daughter, health care proxy, and the patient was seen by the anesthesia staff, taken to the operating room on a stretcher. DESCRIPTION OF PROCEDURE: The patient's neck was prepped and draped sterilely. Time-out was performed. Delmar between the sternal notch and the cricoid cartilage where the patient had already had previous thyroidectomy scar, we injected lidocaine to lift up the skin. We incised the site and with cautery dissected down to the muscle. This fascia was cauterized and entry into the tissues deeper to this was performed. Fascia was lifted superiorly and inferiorly. Anterior jugular vessels were iden tified. They were dissected free, to try to lift them laterally. The right- sided anterior jugular vein appeared to cross over where we needed to operate and this was ligated with 4-0 Polysorb sutures . This allowed us to enter the deeper recesses of the trachea. The patient was status post thyroidec kayy and no thyroid tissue was identified. Once the trachea was cleared off anteriorly, we identified the spot that we would perform the tracheo kayy at. The ET tube was then entered distal to this area and we incised with 11 blade and cut the l ateral aspect. Vein retractor was used as a tracheal hook to bring this up into the site and we back ed the ET tube out and we were able to place a size 8 tracheostomy tube in without difficulty. This was connected to the circuit and we saw good end-tidal volumes. O2 sat came up to 100. It had never gotten below 89. Next, we closed the subcutaneous tissue with 2-0 Vicryl stitches laterally just to reapproximate the defect somewhat and placed 0 silk sutures in 4 quadrants and sutured this to the tracheostomy tubing. We did insert 10 cc of air into the balloon of the tracheostomy tubing and then utilized a neck str ap. The patient tolerated the procedure well and was transferred to the ICU in good condition. I discuss ed with the critical care team the findings intraoperatively. [id number]/[facility] #: [id number]
[2018-08-05] MEDS: Insulin LISPRO* 1 UNITS UNIT SUBCUT SCH ×5 (03:46→18:44)
[2018-08-05] MEDS: metroNIDAZOLE IV 500 MG/100ML* 500 MG/100 ML BAG IVPB SCH ×3 (04:38→19:55)
[2018-08-05] MEDS: Norepinephrine VIAL* 4 MG in NS 0.9% 250 ML* 246 ML IV SCH ×2 (04:59→08:52)
[2018-08-05] MEDS: Enoxaparin(*) 80 MG/0.8 ML SYR SUBCUT SCH ×2 (05:17→17:03)
[2018-08-05] MEDS: Levothyroxine TAB* 150 MCG TAB NG TUBE SCH (05:18)
[2018-08-05 05:37] LABS: Hematocrit 26 % (35-47); Hemoglobin 8.3 g/dl (12.0-16.0); Mean Corpuscular HGB Conc 33 g/dl (31-36); Mean Corpuscular Hemoglobin 32 pg (27-31); Mean Corpuscular Volume 98 fL (80-97); Mean Platelet Volume 9.3 fL (7.4-10.4); Platelet Count 374 10^3/ul (150-450); Red Blood Count 2.62 10^6/ul (4.00-5.40); Red Cell Distribution Width 16 % (10.5-15); White Blood Count 8.3 10^3/ul (3.5-10.8)
[2018-08-05 05:56] LABS: BUN/Creatinine Ratio 54.3 (8-20); Calcium 7.6 mg/dL (8.6-10.3); EGFR African American 217.3 (>60); EGFR Non-African American 179.6 (>60); Potassium 3.4 mmol/L (3.5-5.0)
[2018-08-05] MEDS: Dexmedetomidine* 400 MCG in NS 0.9% 100 ML* 96 ML IVPB SCH ×2 (08:42→19:17)
[2018-08-05] MEDS: NS 0.9% 1000 ML** 1,000 ML IV SCH (08:53)
[2018-08-05] MEDS: Citalopram TAB* 20 MG PO SCH (09:50)
[2018-08-05] MEDS: Lisinopril TAB* 10 MG PO SCH (09:50)
[2018-08-05] MEDS: amLODIPine TAB* 5 MG PO SCH (09:50)
[2018-08-05] MEDS: Atenolol TAB* 25 MG PO SCH ×2 (09:50→21:25)
[2018-08-05] MEDS: Lactobacillus Acidophilus* 1 TAB PO SCH (09:50)
[2018-08-05] MEDS: Bacitracin OINTMENT* 0.5% 0.5 oz TUBE TOPICAL SCH ×2 (10:36→21:26)
[2018-08-05] MEDS: KCL 20 MEQ/100 ML IVPREMIX* 20 MEQ/100 ML BAG IV SCH ×2 (10:37→13:40)
[2018-08-05] MEDS: Potassium Chloride LIQUID* 20 MEQ PACKET PO SCH (10:37)
[2018-08-05] MEDS: VANCOMYCIN NG TUBE SCH ×4 (10:40→21:25)
--- NOTE | 2018-08-05 10:43 | PN ---
Progress Note - Progress Note Date of Service: 08/05/18 SOAP: Subjective: Comfortable on vent No problems per nursing Objective: Temp Pulse Resp BP Pulse Ox 99.3 F 70 16 115/50 98 08/05/18 06:00 08/05/18 06:00 08/05/18 05:55 08/05/18 04:00 08/05/18 06:[address]-dressing intact Assessment: POD#1 s/p tracheostomy Plan: Ventilator management Discussed with Dr. Ramos
[2018-08-05] MEDS ORDERED: Magnesium Sulfate 2 GM IV* 2 GM/50 ML BAG IVPB ONE (11:15)
--- NOTE | 2018-08-05 15:35 | PN ---
Date of Service: 08/05/18 Critical Care Services: Tracheostomy performed yesterday and today, patient remains on ventilator and attempt to wean was unsuccessful. Sedation switched from propofol to Precedex. Vital Signs: Temp Pulse Resp BP SpO2 FiO2 99.3 F 70 16 115/50 98 30 Physical Exam: Gen: Opens eyes but does not respond to verbal commands HEENT: Trach stoma without active bleeding or purulence Lungs: Coarse rhonchi bilaterally Extremities: 2+ edema Fluid Balance (Past 24 Hours): 08/05/18 06:59 Intake Total 2749 Output Total 1002 Balance 1747 Weight 194 lb Intake: IV Fluids 2063 Antibiotics 265 NS 733 NS w meds 1065 Normal Saline IVPB 202 NS w meds 202 Medicated IV 250 flagyl propofol 250 Oral 0 Tube Feeding 221 Tube Feeding Flush Amount 13 NG Tube Irrigate Amount Output: Walsh 1002 Liquid Stool Tube Feeding Residual Amount Wasted Labs: 08/05/18 08/05/18 08/05/18 05:17 05:17 08:36 WBC 8.3 RBC 2.62 L Hgb 8.3 L Hct 26 L MCV 98 H MCH 32 H MCHC 33 RDW 16 H Plt Count 374 Sodium 146 H Potassium 3.4 L Chloride 116 H Carbon Dioxide 25 Anion Gap 5 BUN 19 Creatinine 0.35 L Glucose 92 POC Glucose (mg/dL) 92 Calcium 7.6 L Magnesium Total Creatine Kinase 923 H 08/05/18 10:30 WBC RBC Hgb Hct MCV MCH MCHC RDW Plt Count MPV Sodium Potassium Chloride Carbon Dioxide Anion Gap BUN Creatinine Est GFR ( Amer) Est GFR (Non-Af Amer) BUN/Creatinine Ratio Glucose POC Glucose (mg/dL) Calcium Magnesium 1.7 L Total Creatine Kinase Studies: None today Nutrition: Tube feeding Impression: Remains ventilator-dependent, although rhabdomyolysis improving. Plan: Replace potassium and magnesium. Continue to try diuresis (despite rhabdo). Will consult GI for PEG tube. Critical Care Time: 40 minutes (including time to evaluate for weaning).
[2018-08-05] MEDS ORDERED: Furosemide IV* 10 MG/ML VIAL (40 MG) IV SLOW PU ONE (15:41)
[2018-08-06] MEDS: Insulin LISPRO* 1 UNITS UNIT SUBCUT SCH ×4 (00:27→17:45)
[2018-08-06 03:29] LABS: Hematocrit 25 % (35-47); Hemoglobin 7.8 g/dl (12.0-16.0); Mean Corpuscular HGB Conc 32 g/dl (31-36); Mean Corpuscular Hemoglobin 31 pg (27-31); Mean Corpuscular Volume 98 fL (80-97); Mean Platelet Volume 9.5 fL (7.4-10.4); Platelet Count 320 10^3/ul (150-450); Red Blood Count 2.54 10^6/ul (4.00-5.40); Red Cell Distribution Width 16 % (10.5-15); White Blood Count 6.8 10^3/ul (3.5-10.8)
[2018-08-06 03:44] LABS: BUN/Creatinine Ratio 51.3 (8-20); Calcium 7.6 mg/dL (8.6-10.3); EGFR African American 191.8 (>60); EGFR Non-African American 158.5 (>60); Potassium 3.3 mmol/L (3.5-5.0)
[2018-08-06] MEDS: Levothyroxine TAB* 150 MCG TAB NG TUBE SCH (06:38)
[2018-08-06] MEDS: metroNIDAZOLE IV 500 MG/100ML* 500 MG/100 ML BAG IVPB SCH ×3 (06:39→20:17)
[2018-08-06] MEDS: Enoxaparin(*) 80 MG/0.8 ML SYR SUBCUT SCH (06:40)
[2018-08-06] MEDS: Dexmedetomidine* 400 MCG in NS 0.9% 100 ML* 96 ML IVPB SCH ×2 (07:03→19:27)
[2018-08-06] MEDS: fentaNYL* 50 MCG/ML 2 ML VIAL (100 MCG VIAL) IV SLOW PU PRN (08:04)
[2018-08-06] MEDS: Citalopram TAB* 20 MG PO SCH (09:52)
[2018-08-06] MEDS: Lactobacillus Acidophilus* 1 TAB PO SCH (09:52)
[2018-08-06] MEDS: Atenolol TAB* 25 MG PO SCH ×2 (09:56→20:19)
[2018-08-06] MEDS: Potassium Chloride LIQUID* 20 MEQ PACKET PO SCH (09:56)
[2018-08-06] MEDS: Lisinopril TAB* 10 MG PO SCH (09:56)
[2018-08-06] MEDS: amLODIPine TAB* 5 MG PO SCH (09:56)
[2018-08-06] MEDS: Bacitracin OINTMENT* 0.5% 0.5 oz TUBE TOPICAL SCH ×2 (10:00→20:20)
[2018-08-06] MEDS: VANCOMYCIN NG TUBE SCH ×4 (10:07→20:20)
[2018-08-06] MEDS ORDERED: Furosemide IV* 100 MG in NS 0.9% 100 ML* 90 ML IV SCH (10:30)
[2018-08-06] MEDS: KCL 20 MEQ/100 ML IVPREMIX* 20 MEQ/100 ML BAG IV SCH ×2 (10:45→12:59)
--- NOTE | 2018-08-06 14:38 | PN ---
Date of Service: 08/06/18 Critical Care Services: Remains on ventilator mental status has improved (now follows verbal commands, but attempts to wean have been unsuccessful. Has been placed on a furosemide drip because of marked edema and poor response to bolus-dose furosemide. Rhabdomyolysis has resolved. Vital Signs: Temp Pulse Resp BP SpO2 FiO2 98.4 F 70 16 91/54 99 30 Physical Exam: Gen: Somnolent but arousable HEENT: Trach stoma: no bleeding or purulence. Lungs:Clear (!) Extremities: 2-3+ edema Fluid Balance (Past 24 Hours): 08/06/18 06:59 Intake Total 2859 Output Total 3478 Balance -619 Weight 198 lb Intake: IV Fluids 688 Antibiotics NS NS w meds 295 Normal Saline 393 IVPB 400 NS w meds 291 Normal Saline 109 Medicated IV 68 CC - Dexmedetomidine/ 52 Precedex flagyl propofol 16 Oral Tube Feeding 748 Tube Feeding Flush Amount 900 NG Tube Irrigate Amount 55 Output: Urine 390 Walsh 2188 Liquid Stool 900 Tube Feeding Residual 0 Amount Wasted Labs: 08/06/18 08/06/18 08/06/18 03:10 03:10 06:25 WBC 6.8 RBC 2.54 L Hgb 7.8 L Hct 25 L MCV 98 H MCH 31 MCHC 32 RDW 16 H Plt Count 320 MPV 9.5 Sodium 145 Potassium 3.3 L Chloride 116 H Carbon Dioxide 26 Anion Gap 3 BUN 20 Creatinine 0.39 L Est GFR ( Amer) 191.8 Est GFR (Non-Af Amer) 158.5 BUN/Creatinine Ratio 51.3 H Glucose 148 H POC Glucose (mg/dL) 167 H Calcium 7.6 L Total Creatine Kinase 414 H Studies: None today Nutrition: Tube feedings Impression: Patient is likely to be vent-dependent chronically, 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 Have consulted GI for PEG tube, pending placement in a chronic ventilator facility. 2. Will continue furosemide infusion to a goal of 100 ml/hr 3. Continue daily wean attempts. Critical Care Time: 40 minutes (including time needed to evaluate weaning).
--- NOTE | 2018-08-06 15:36 | CONS ---
GASTROENTEROLOGY CONSULTATION REPORT: DATE OF CONSULT: 08/06/18 REQUESTING PROVIDER: Dr. Ramos in ICU. REASON FOR CONSULT: Request for PEG. HISTORY OF PRESENT ILLNESS: Ms. 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 Dr. Weber saw this patient as a java consultant for elevated LFTs. Please see initial consult note dated 07/18/18 for full details of presentation. Briefly, the patient was admitted on 07/17/18 with vomiting, hypoxia and left-sided pneumonia. She was intubated and required pressors. She has remained in the ICU with significant on going issues including ventilator dependence, encephalopathy, and severe weakness. She has a DVT for which she is on Lovenox twice daily. Hospital course further complicated by C. diff on 07/27/18. She continues on antibiotics for C diff with last stool test on 08/02/18 negative for C. diff. She underwent trach placement on 08/04/[address] Watters. ICU team is looking towards potential placement and is requesting PEG tube. The patient has been tolerating tube feeds without issue. PAST MEDICAL HISTORY: 1. Cardiac rhythm disturbance with pacemaker. 2. Atrial fibrillation, was previously on Coumadin. 3. GERD, on omeprazole as an outpatient. 4. History of vasculitis. 5. History of renal disease. 6. Status post hysterectomy. 7. Hypothyroidism. 8. Anxiety. 9. Multiple allergies. MEDICATIONS: Current medications in ICU include: 1. Citalopram 20 mg daily. 2. Atenolol 25 mg twice daily. 3. Potassium p.r.n. 4. Amlodipine 10 mg daily. 5. DuoNeb p.r.n. 6. Lovenox 75 mg b.i.d. 7. Lactobacillus 1 tab daily. 8. Lisinopril 40 daily. 9. Fentanyl IV p.r.n. 10. Levothyroxine 115 mcg daily. 11. Vancomycin 125 mg 4 times a day. 12. Flagyl 500 mg q.8. 13. Dexmedetomidine. 14. Insulin p.r.n. 15. Furosemide p.r.n. SOCIAL HISTORY: Per prior consult note, the patient is and lives with her . Daughter involved in her care. REVIEW OF SYSTEMS: Unable to obtain as the patient is not able to communicate. PHYSICAL EXAM: Vital Signs: 98.6, heart rate 70, blood pressure 92/53, 99% on the vent. General: Chronically ill-appearing woman awake and alert, unable to communicate verbally. HEENT: No scleral icterus. The mucous membranes are moist. Neck: Trach. Cardiovascular: Regular rate and rhythm. Lungs: On ventilator, coarse breath sounds. Abdomen: Moderately obese, soft, nondistended. The patient is not grimacing with palpation of abdomen. Neuro: Awake and alert. DIAGNOSTIC STUDIES/LAB DATA: Today's labs: WBC 6.8, hemoglobin 7.8, hematocrit 25. This is where her Hgb/Hct have been for the past several days. Platelet count of 320. Comprehensive panel notable for a normal creatinine of 0.39. CK of 414, which is significantly down from last week when it peaked at >3000. Last INR checked on 07/22/18 was 1.02. Imaging: CT abdomen and pelvis was performed on admission on 07/17/18. This demonstrated multifocal pneumonia. Liver was normal in appearance. There was no ascites. Gallbladder and bile ducts were normal. Pancreas and spleen were normal. Stomach and small bowel seen in limited views, but did not appear grossly abnormal. IMPRESSION AND RECOMMENDATIONS: Ms. Davis is a 78-year-old woman with multiple medical comorbidities including cardiac arrhythmia with a pacemaker, who was admitted earlier this month with pneumonia requiring intubation and pressors. The patient remains ventilator dependent with recent rhabdomyolysis, possible critical illness polyneuropathy or polymyositis, and recent C. diff. Underwent trach placement on 08/04/18. GI consulted to discuss PEG placement as ICU team is looking at placement options. The patient has a history of obesity and is moderately obese on exam, although adequate window for PEG placement likely still achievable. The patient is currently on Lovenox for DVT, which would need to be held temporarily for procedure. Patient did have a recent C. diff infection and some ongoing loose stools; however, the most recent C. diff test from stool on 08/02/18 was negative. I discussed the indication and risks associated with PEG placement with patient's daughter, who is in agreement with proceeding with PEG. 1. Please check INR tomorrow morning. 2. Please order a abdominal x-ray to ensure no significant intestinal dilation given recent C. diff history. 3. Hold Lovenox dose on the evening of 08/06/18 and morning of 08/07. Stop tube feeds after midnight tonight. 4. Tentative plan for PEG placement on Tuesday vs Tuesday. Dr Avila will reach out to ICU team tomorrow to confirm timing. Thank you very much for this consult. GI will continue to follow. [id number]/[facility] #: [id number] [facility]
[2018-08-06] MEDS ORDERED: Enoxaparin(*) 80 MG/0.8 ML SYR SUBCUT ONE (18:00)
--- NOTE | 2018-08-06 18:02 | PN ---
Progress Note - Progress Note Date of Service: 08/06/18 Note: On furosemide drip, urine output was 400 - 550 mls/hr. I have stopped this overnight, and should probably be restarted tomorrow (load with 100 mg furosemide and drip at 10 mg/hr).
[2018-08-06] MEDS: Nystatin CREAM* 15 GM TUBE TOPICAL SCH (20:24)
[2018-08-07] MEDS: Insulin LISPRO* 1 UNITS UNIT SUBCUT SCH ×4 (00:31→18:09)
[2018-08-07 06:54] LABS: BUN/Creatinine Ratio 61.8 (8-20); EGFR African American 224.7 (>60); EGFR Non-African American 185.7 (>60); Magnesium 1.8 mg/dL (1.9-2.7); Potassium 3.5 mmol/L (3.5-5.0)
[2018-08-07] MEDS: Levothyroxine TAB* 150 MCG TAB NG TUBE SCH (06:57)
[2018-08-07] MEDS: metroNIDAZOLE IV 500 MG/100ML* 500 MG/100 ML BAG IVPB SCH ×3 (06:57→19:45)
[2018-08-07] MEDS: Dexmedetomidine* 400 MCG in NS 0.9% 100 ML* 96 ML IVPB SCH ×2 (07:49→19:28)
[2018-08-07] MEDS: Potassium Chloride LIQUID* 20 MEQ PACKET PO SCH (09:12)
[2018-08-07] MEDS: Atenolol TAB* 25 MG PO SCH ×2 (09:12→20:10)
[2018-08-07] MEDS: Citalopram TAB* 20 MG PO SCH (09:12)
[2018-08-07] MEDS: Lactobacillus Acidophilus* 1 TAB PO SCH (09:13)
[2018-08-07] MEDS: amLODIPine TAB* 5 MG PO SCH (09:13)
[2018-08-07] MEDS: Lisinopril TAB* 10 MG PO SCH (09:13)
[2018-08-07] MEDS: Nystatin CREAM* 15 GM TUBE TOPICAL SCH ×2 (09:14→15:11)
[2018-08-07] MEDS: Bacitracin OINTMENT* 0.5% 0.5 oz TUBE TOPICAL SCH (09:14)
--- NOTE | 2018-08-07 09:58 | PN ---
Date of Service: 08/07/18 Critical Care Services: 78 F with prolonged mechanical ventilation Current complains:communicates with facial gestures. Denies pain Overnight issues:sputum is considerably more thicker and malodorous according to nursing and respiratory staff; lasix gtt stopped overnight. Vital Signs: Temp Pulse Resp BP SpO2 FiO2 98.6 F 70 15 114/63 99 25 08/07/18 08:01 08/07/18 08:01 08/07/18 08:00 08/07/18 08:00 08/07/18 08:01 08/07 08:00 Physical Exam: Gen: Somnolent but arousable. Remains on vent support HEENT: Trach stoma: no bleeding or purulence. Trach in place. NCAT Lungs: clear to auscultation bilaterally Cardiac: S1S2, RRR Abdomen: SNTND, +BS Extremities: 2-3+ edema Neuro:Non focal Fluid Balance (Past 24 Hours): I= O= Net Intake & Output 08/05/18 08/06/18 08/07/18 08/08/18 06:59 06:59 06:59 06:59 Intake Total 2749 2859 3884.5 191 Output Total 1002 3478 4430 200 Balance 1747 -619 -545.5 -9 Weight 194 lb 7.163 oz 198 lb 11.567 oz 192 lb 3.889 oz Intake: IV Fluids 2063 688 568 Antibiotics 265 NS 733 NS w meds 1065 295 537 Normal Saline 393 31 IVPB 202 400 363 NS w meds 202 291 363 Normal Saline 109 Medicated IV 250 68 162.5 CC - Dexmedetomidine/ 52 91.5 Precedex lasix 71 propofol 250 16 Oral 0 0 Tube Feeding 903 096 2558 110 Tube Feeding Flush Amount 13 900 1075 Albumin 81 NG Tube Irrigate Amount 55 0 Output: Urine 390 125 Walsh 1002 2188 4305 200 Liquid Stool 900 0 Tube Feeding Residual 0 0 Amount Wasted ADLs: Meal Record Start: 07/17/18 17: 39 Freq: Status: Active Protocol: Created 07/17/18 17:39 System (Rec: 07/17/18 17:39 System ICU-C20) Document 07/17/18 18:00 SLG2336 (Rec: 07/17/18 18:09 QHP3670 ICU-C12) Document 07/18/18 09:00 PYM2871 (Rec: 07/18/18 10:08 QHR2662 ICU-C15) Document 07/18/18 13:00 ERM7235 (Rec: 07/18/18 13:24 TXV3421 ICU-C15) Document 07/18/18 18:00 HHW7621 (Rec: 07/18/18 18:15 RAS0998 ICU-C15) Document 07/19/18 09:00 YVT1488 (Rec: 07/19/18 09:05 EYN5694 ICU-M27) Document 07/19/18 12:57 QFS8664 (Rec: 07/19/18 12:58 IZT4900 ICU-L03) Document 07/19/18 18:00 UXZ8437 (Rec: 07/19/18 18:32 YSA1316 ICU-C15) Document 07/20/18 09:00 RRG0730 (Rec: 07/20/18 09:21 HLH6689 ICU-C15) Document 07/20/18 13:00 IAL5513 (Rec: 07/20/18 13:27 PGO9461 ICU-C15) Document 07/20/18 17:06 IQV3025 (Rec: 07/20/18 17:06 OSJ6973 ICU-C15) Document 07/21/18 08:55 TFF4943 (Rec: 07/21/18 08:55 CKU9384 ICU-M27) Document 07/21/18 12:37 ULF7106 (Rec: 07/21/18 12:37 ONR5381 ICU-C12) Document 07/21/18 17:01 XMX7298 (Rec: 07/21/18 17:01 POO6367 ICU-C12) Document 07/22/18 09:00 OHV3137 (Rec: 07/22/18 09:11 ZRQ5246 ICU-M27) Document 07/22/18 13:20 ZUH5908 (Rec: 07/22/18 13:20 WMV1749 ICU-C12) Document 07/22/18 17:04 XTI7670 (Rec: 07/22/18 17:04 EGZ8506 ICU-C12) Document 07/23/18 09:00 VPM0804 (Rec: 07/23/18 09:39 FQV0814 ICU-C12) Document 07/23/18 13:00 EJK3039 (Rec: 07/23/18 13:43 ZIG4263 ICU-C12) Document 07/24/18 09:00 IRZ6683 (Rec: 07/24/18 09:12 XVX2676 ICU-C12) Document 07/24/18 13:00 SEY9002 (Rec: 07/24/18 13:02 TWB5899 ICU-C12) Document 07/24/18 18:00 WIP9236 (Rec: 07/24/18 18:02 AQA7520 ICU-M27) Intake and Output Start: 07/17/18 15: 30 Freq: Status: Active Protocol: Created 07/17/18 15:30 System (Rec: 07/17/18 15:30 System EDRM-C04) Intake and Output Start: 07/17/18 17: 39 Freq: Q1HR Status: Active Protocol: Created 07/17/18 17:39 System (Rec: 07/17/18 17:39 System ICU-C20) Document 07/17/18 18:00 ZQM7171 (Rec: 07/17/18 18:09 NRT1617 ICU-C12) Document 07/17/18 20:00 BNO6763 (Rec: 07/17/18 21:35 SRT4175 ICU-C12) Document 07/17/18 21:00 CID8374 (Rec: 07/17/18 22:27 XRI7731 ICU-M27) Document 07/17/18 22:00 QXQ9588 (Rec: 07/18/18 00:01 TAC2965 ICU-C12) Document 07/17/18 23:00 KYB6200 (Rec: 07/18/18 00:01 SPE5433 ICU-C12) Document 07/18/18 00:00 PRR6375 (Rec: 07/18/18 02:55 WJW1739 ICU-C12) Document 07/18/18 01:00 HFX1720 (Rec: 07/18/18 02:55 XEP2446 ICU-C12) Document 07/18/18 02:00 ZRQ2580 (Rec: 07/18/18 02:55 YBG4037 ICU-C12) Document 07/18/18 03:00 WBJ2806 (Rec: 07/18/18 03:16 CTL9913 ICU-C12) Document 07/18/18 04:00 KTP4284 (Rec: 07/18/18 05:15 XNM8228 ICU-M27) Document 07/18/18 06:30 RJB1889 (Rec: 07/18/18 06:30 GQH5608 ICU-M27) Document 07/18/18 07:00 SFK3499 (Rec: 07/18/18 07:22 GVJ2846 ICU-M27) Document 07/18/18 08:00 JOM4852 (Rec: 07/18/18 09:14 MED7975 ICU-M27) Document 07/18/18 09:00 GHB9016 (Rec: 07/18/18 09:15 HDV2194 ICU-M27) Document 07/18/18 10:00 BWG4592 (Rec: 07/18/18 10:08 FIH7298 ICU-C15) Document 07/18/18 11:00 GNA6378 (Rec: 07/18/18 11:07 XGB3943 ICU-M27) Document 07/18/18 12:00 SJL1989 (Rec: 07/18/18 12:25 MAH7659 ICU-C15) Document 07/18/18 13:00 MGX0400 (Rec: 07/18/18 13:24 SHO7980 ICU-C15) Document 07/18/18 14:00 BYW6570 (Rec: 07/18/18 14:14 APW4037 ICU-C15) Document 07/18/18 15:00 MCL5342 (Rec: 07/18/18 15:13 ZTS6532 ICU-C15) Document 07/18/18 16:00 SSC2801 (Rec: 07/18/18 17:41 JCD0366 ICU-C15) Document 07/18/18 17:00 FTQ8947 (Rec: 07/18/18 17:58 KGJ9833 ICU-C15) Document 07/18/18 18:00 KZR3111 (Rec: 07/18/18 18:15 WGQ0076 ICU-C15) Document 07/18/18 21:55 RZD8459 (Rec: 07/18/18 21:55 UPO0071 ICU-M27) Document 07/18/18 23:00 UHO7661 (Rec: 07/18/18 23:31 MIG5351 ICU-C15) Document 07/18/18 23:59 YJN5072 (Rec: 07/18/18 23:59 HKM1938 ICU-M27) Document 07/19/18 02:58 NZJ5166 (Rec: 07/19/18 02:58 LFO2692 ICU-C14) Document 07/19/18 03:00 TXL9721 (Rec: 07/19/18 03:15 NRP3506 ICU-M27) Document 07/19/18 04:00 ZKQ3932 (Rec: 07/19/18 05:28 ONB6461 ICU-C15) Document 07/19/18 05:00 RHA9824 (Rec: 07/19/18 05:32 DJJ3141 ICU-C15) Document 07/19/18 06:00 MGG0006 (Rec: 07/19/18 06:35 GQD3118 ICU-C15) Document 07/19/18 07:00 VUV6687 (Rec: 07/19/18 09:03 FZO1627 ICU-M27) Document 07/19/18 08:00 ZKC5883 (Rec: 07/19/18 09:03 RQK3475 ICU-M27) Document 07/19/18 09:00 AAI9661 (Rec: 07/19/18 09:03 SYT2577 ICU-M27) Document 07/19/18 10:00 VEB8395 (Rec: 07/19/18 10:41 PMG0523 ICU-M27) Document 07/19/18 10:45 YHV0464 (Rec: 07/19/18 10:45 HPA8517 ICU-M27) Document 07/19/18 11:00 UNY6458 (Rec: 07/19/18 11:04 SXC9495 ICU-M27) Document 07/19/18 12:00 POK3019 (Rec: 07/19/18 12:12 BGY9945 ICU-M27) Document 07/19/18 12:59 GEY7904 (Rec: 07/19/18 12:59 BOM9377 ICU-L03) Document 07/19/18 13:56 AYV8720 (Rec: 07/19/18 13:57 ZGS9673 ICU-L03) Document 07/19/18 14:54 YPO8903 (Rec: 07/19/18 14:54 HCD0689 ICU-L03) Document 07/19/18 16:00 IYC6597 (Rec: 07/19/18 16:42 ZSL1606 ICU-C15) Document 07/19/18 17:00 XAB1192 (Rec: 07/19/18 18:31 WSQ0056 ICU-C15) Document 07/19/18 18:00 KWS2443 (Rec: 07/19/18 18:32 OSU4331 ICU-C15) Document 07/19/18 19:00 GXY1389 (Rec: 07/19/18 19:16 ZUT4320 ICU-M27) Document 07/19/18 21:00 HEL4464 (Rec: 07/19/18 21:27 TPH1261 ISDEMO-M03 ) Document 07/19/18 22:00 YYM6925 (Rec: 07/19/18 22:13 VVU8535 ICU-L03) Document 07/19/18 22:54 HZJ5478 (Rec: 07/19/18 22:54 RVN3796 ICU-M27) Document 07/20/18 00:00 MFV7576 (Rec: 07/20/18 01:34 LOS6692 ICU-L03) Document 07/20/18 01:00 TDM6549 (Rec: 07/20/18 01:34 ABA5236 ICU-L03) Document 07/20/18 02:00 QMT9522 (Rec: 07/20/18 02:07 NHQ5586 ICU-L03) Document 07/20/18 03:00 AEE0842 (Rec: 07/20/18 04:37 EXF2632 ICU-L03) Document 07/20/18 04:00 MKK6455 (Rec: 07/20/18 04:37 XKK3775 ICU-L03) Document 07/20/18 05:00 IYS0222 (Rec: 07/20/18 05:12 CSV0724 ICU-L03) Document 07/20/18 06:00 ART3140 (Rec: 07/20/18 06:07 DZX6681 ICU-M27) Document 07/20/18 07:00 JYE8635 (Rec: 07/20/18 07:32 RBD8133 ICU-C15) Document 07/20/18 08:00 OZE3836 (Rec: 07/20/18 09:00 DGF0488 ICU-C15) Document 07/20/18 09:00 SPD1297 (Rec: 07/20/18 09:19 MEX1027 ICU-C15) Document 07/20/18 10:00 DVO7099 (Rec: 07/20/18 10:46 TAX2861 ICU-C15) Document 07/20/18 10:47 KPI9343 (Rec: 07/20/18 10:47 TCQ4933 ICU-C15) Document 07/20/18 12:17 KGF7824 (Rec: 07/20/18 12:17 DBN0775 ICU-C15) Document 07/20/18 13:00 QNR3115 (Rec: 07/20/18 13:27 HDO6605 ICU-C15) Document 07/20/18 14:16 HYA3815 (Rec: 07/20/18 14:16 TTL8988 ICU-M27) Document 07/20/18 15:00 LJR2798 (Rec: 07/20/18 15:03 YAU8802 ICU-M27) Document 07/20/18 16:14 DJW8989 (Rec: 07/20/18 16:14 HOG2071 ICU-M27) Document 07/20/18 17:07 GQY4559 (Rec: 07/20/18 17:07 TRO5721 ICU-C15) Document 07/20/18 18:20 XCX9078 (Rec: 07/20/18 18:20 SLM6982 ISDEGA-M03 ) Document 07/20/18 19:00 RLY9387 (Rec: 07/20/18 21:34 JCN4009 ICU-C15) Document 07/20/18 21:00 CRA3584 (Rec: 07/20/18 21:35 WYL7580 ICU-C15) Document 07/20/18 22:00 SXE6684 (Rec: 07/20/18 22:12 FJS4204 ICU-C15) Document 07/20/18 23:00 KDY6480 (Rec: 07/20/18 23:13 WWR9708 ICU-C15) Document 07/21/18 01:00 OLU3009 (Rec: 07/21/18 01:35 OTM8673 ICU-C15) Document 07/21/18 02:00 BXY4043 (Rec: 07/21/18 02:14 RKT9051 ICU-C15) Document 07/21/18 03:00 WMP6056 (Rec: 07/21/18 03:44 MWV7675 ICU-C25) Document 07/21/18 05:00 KLP2775 (Rec: 07/21/18 05:05 PON2539 ICU-C15) Document 07/21/18 06:00 GCD7946 (Rec: 07/21/18 06:23 CPD9127 ICU-C15) Document 07/21/18 07:00 NXZ7957 (Rec: 07/21/18 07:20 KSM6936 ICU-C12) Document 07/21/18 08:11 YGT0911 (Rec: 07/21/18 08:11 WRK5841 ICU-M27) Document 07/21/18 08:54 NVY8274 (Rec: 07/21/18 08:55 XDQ2383 ICU-M27) Document 07/21/18 10:00 EJQ2258 (Rec: 07/21/18 10:03 VNW5102 ICU-C12) Document 07/21/18 10:59 YCK9115 (Rec: 07/21/18 10:59 UJR5113 ICU-C12) Document 07/21/18 12:33 BQZ8878 (Rec: 07/21/18 12:33 ZHZ5847 ICU-C12) Document 07/21/18 13:06 MYP2502 (Rec: 07/21/18 13:06 SNX2124 ICU-C12) Document 07/21/18 14:00 WFH0416 (Rec: 07/21/18 14:06 PGT4532 ICU-C12) Document 07/21/18 16:00 AEJ8486 (Rec: 07/21/18 16:01 CKN3923 ICU-C12) Document 07/21/18 16:54 LZJ8821 (Rec: 07/21/18 16:54 QYH0327 ICU-C12) Document 07/21/18 18:00 LOT7047 (Rec: 07/21/18 18:02 GZR2964 ICU-C12) Document 07/21/18 19:00 JSI7092 (Rec: 07/21/18 19:56 KVT1405 ICU-C15) Document 07/21/18 20:00 ELK3425 (Rec: 07/21/18 21:16 JEP2195 ICU-C15) Document 07/21/18 21:00 KHJ3485 (Rec: 07/21/18 21:16 YLH2895 ICU-C15) Document 07/21/18 22:00 LOJ7130 (Rec: 07/21/18 22:01 EEH8327 ICU-C15) Document 07/21/18 23:00 RKI7177 (Rec: 07/22/18 00:28 QUO6964 ICU-C15) Document 07/22/18 00:00 OXA6570 (Rec: 07/22/18 00:28 RTM7852 ICU-C15) Document 07/22/18 01:00 RGO7282 (Rec: 07/22/18 01:29 YYP1389 ICU-C15) Document 07/22/18 02:00 IHN5642 (Rec: 07/22/18 03:53 CEQ4416 ICU-C15) Document 07/22/18 03:00 AGQ7986 (Rec: 07/22/18 03:54 LOB9587 ICU-C15) Document 07/22/18 04:00 PFP5638 (Rec: 07/22/18 05:40 QEK5203 ICU-M27) Document 07/22/18 05:00 MED6266 (Rec: 07/22/18 05:40 YSQ0835 ICU-M27) Document 07/22/18 05:39 ZFL6392 (Rec: 07/22/18 05:40 DMW9435 ICU-M27) Document 07/22/18 07:56 QQG3362 (Rec: 07/22/18 07:57 EVV7019 ICU-M27) Document 07/22/18 09:00 MNW4139 (Rec: 07/22/18 09:11 SHU5369 ICU-M27) Document 07/22/18 09:58 NSS0903 (Rec: 07/22/18 09:58 COD2924 ICU-M27) Document 07/22/18 11:00 ZQK8072 (Rec: 07/22/18 11:06 IAT1979 ICU-C12) Document 07/22/18 12:35 SKN3351 (Rec: 07/22/18 12:35 KVJ7143 ICU-C12) Document 07/22/18 13:31 UGM1106 (Rec: 07/22/18 13:31 KJI0245 ICU-C12) Document 07/22/18 14:20 QYC3752 (Rec: 07/22/18 14:20 XIZ9842 ICU-M27) Document 07/22/18 15:05 JJD8372 (Rec: 07/22/18 15:05 LMX8858 ICU-C12) Document 07/22/18 15:58 MDR4230 (Rec: 07/22/18 15:58 UNM3697 ICU-C12) Document 07/22/18 17:02 JSG3055 (Rec: 07/22/18 17:03 RER8181 ICU-C12) Document 07/22/18 18:14 SOO9407 (Rec: 07/22/18 18:15 ISH1847 ICU-C12) Document 07/22/18 19:00 WGA6084 (Rec: 07/22/18 20:14 CNX4939 ICU-C15) Document 07/22/18 20:00 PAR4686 (Rec: 07/22/18 20:14 NKI9964 ICU-C15) Document 07/22/18 21:00 VFC6715 (Rec: 07/22/18 21:06 BYI7953 ICU-C15) Document 07/22/18 22:00 EPB4042 (Rec: 07/22/18 22:16 ODE3463 ICU-C15) Document 07/22/18 23:00 WGX0798 (Rec: 07/22/18 23:54 DEU3417 ICU-C15) Document 07/22/18 23:54 MOU9576 (Rec: 07/22/18 23:54 CCW1010 ICU-C15) Document 07/23/18 01:00 ORB8835 (Rec: 07/23/18 03:26 TBC2366 ICU-M27) Document 07/23/18 02:00 DER8258 (Rec: 07/23/18 03:26 ZDH2952 ICU-M27) Document 07/23/18 03:00 EXN0057 (Rec: 07/23/18 03:26 IPV3738 ICU-M27) Document 07/23/18 04:00 TTK7108 (Rec: 07/23/18 05:11 CPF6958 ICU-C15) Document 07/23/18 05:00 NZO8391 (Rec: 07/23/18 05:11 OFF5936 ICU-C15) Document 07/23/18 06:00 LBG8021 (Rec: 07/23/18 06:30 ADN7323 ICU-C15) Document 07/23/18 07:00 VNQ0748 (Rec: 07/23/18 08:18 FZU1305 ICU-C12) Document 07/23/18 08:00 JGX9054 (Rec: 07/23/18 08:57 ROA9026 ICU-M27) Document 07/23/18 08:00 YFA9479 (Rec: 07/23/18 08:57 TXI7012 ICU-M27) Document 07/23/18 09:00 RUG2997 (Rec: 07/23/18 09:44 WYH4383 ICU-C12) Document 07/23/18 10:00 IYT2581 (Rec: 07/23/18 10:05 LLX7286 ICU-M27) Document 07/23/18 11:00 MKA0477 (Rec: 07/23/18 11:11 ENH5196 ICU-C12) Document 07/23/18 12:00 GNY1773 (Rec: 07/23/18 12:11 AXE7469 ICU-C12) Document 07/23/18 13:00 TRJ3359 (Rec: 07/23/18 13:51 BDR8465 ICU-C12) Document 07/23/18 14:00 MLE2420 (Rec: 07/23/18 17:04 HQD1334 ICU-M27) Document 07/23/18 15:00 AMR5964 (Rec: 07/23/18 17:04 KAA9465 ICU-M27) Document 07/23/18 16:00 MVK4206 (Rec: 07/23/18 17:04 NAI6715 ICU-M27) Document 07/23/18 17:00 OZR6857 (Rec: 07/23/18 17:04 YRM9338 ICU-M27) Document 07/23/18 17:08 JSP8874 (Rec: 07/23/18 17:09 KPN9694 ICU-M27) Document 07/23/18 18:00 NUX2922 (Rec: 07/23/18 18:58 ZLU6752 ICU-C12) Document 07/23/18 19:00 ZCN2813 (Rec: 07/23/18 19:01 IVM2787 ICU-C12) Document 07/23/18 20:00 ITD0832 (Rec: 07/23/18 20:03 VYE8121 ICU-M27) Document 07/23/18 21:00 VMP1327 (Rec: 07/23/18 22:20 ENZ0274 ICU-M27) Document 07/23/18 22:00 OCH9482 (Rec: 07/23/18 22:20 ELX8053 ICU-M27) Document 07/23/18 23:00 UTM5055 (Rec: 07/23/18 23:12 HGA0416 ICU-C25) Document 07/24/18 00:00 BVO1660 (Rec: 07/24/18 00:39 XUE1110 ICU-C25) Document 07/24/18 01:00 LEY1104 (Rec: 07/24/18 01:04 KDD4188 ICU-M27) Document 07/24/18 02:00 OIU0050 (Rec: 07/24/18 03:10 GIZ3861 ICU-C25) Document 07/24/18 03:00 DJQ2163 (Rec: 07/24/18 03:10 HWH7084 ICU-C25) Document 07/24/18 04:00 RCL7683 (Rec: 07/24/18 04:06 GKL7847 ICU-C25) Document 07/24/18 05:00 MBM5538 (Rec: 07/24/18 05:19 DZF1545 ICU-C25) Document 07/24/18 06:00 QAX2444 (Rec: 07/24/18 06:14 EDE1368 ICU-M27) Document 07/24/18 07:00 HUY1880 (Rec: 07/24/18 07:19 LSG8199 ICU-C25) Document 07/24/18 08:00 UPY8693 (Rec: 07/24/18 09:00 AED4806 ICU-C12) Document 07/24/18 09:00 PUL7909 (Rec: 07/24/18 09:00 KFZ9479 ICU-C12) Document 07/24/18 10:00 ZDE7163 (Rec: 07/24/18 11:47 UYJ2343 ICU-C12) Document 07/24/18 11:00 TDQ7812 (Rec: 07/24/18 11:47 EWN1207 ICU-C12) Document 07/24/18 12:00 ENG1454 (Rec: 07/24/18 12:12 HGQ0076 ICU-C12) Document 07/24/18 13:00 ODJ6982 (Rec: 07/24/18 13:01 CBS6965 ICU-C12) Document 07/24/18 14:00 XYV1775 (Rec: 07/24/18 14:07 PMA1027 ICU-C12) Document 07/24/18 14:14 AER2273 (Rec: 07/24/18 14:14 PJM1141 ICU-C12) Document 07/24/18 15:00 YMW5621 (Rec: 07/24/18 15:04 GVZ7222 ICU-C12) Document 07/24/18 16:34 WWA8644 (Rec: 07/24/18 16:34 TPN2090 ICU-C12) Document 07/24/18 17:00 FLJ6184 (Rec: 07/24/18 17:52 AEM5015 ICU-M27) Document 07/24/18 17:52 DDG4306 (Rec: 07/24/18 17:52 QBD1104 ICU-M27) Document 07/24/18 19:00 ZPW7867 (Rec: 07/24/18 21:01 QBG3293 ICU-C15) Document 07/24/18 20:00 TPB7049 (Rec: 07/24/18 21:01 OBV8151 ICU-C15) Document 07/24/18 21:00 SCJ4860 (Rec: 07/24/18 22:21 VXI6130 ICU-C15) Document 07/24/18 22:00 JHD8988 (Rec: 07/24/18 22:21 FKX3523 ICU-C15) Document 07/24/18 23:00 TLK8677 (Rec: 07/24/18 23:05 YVI7152 ICU-C15) Document 07/25/18 00:00 TIR4836 (Rec: 07/25/18 00:02 KBJ7008 ICU-C15) Document 07/25/18 01:00 BYW0618 (Rec: 07/25/18 01:21 XFY2201 ICU-C15) Document 07/25/18 02:00 ULW1633 (Rec: 07/25/18 02:51 RDS0113 ICU-C15) Document 07/25/18 03:00 IVA4602 (Rec: 07/25/18 04:28 PMJ1886 ICU-C15) Document 07/25/18 04:00 PQL0058 (Rec: 07/25/18 04:28 WTE5069 ICU-C15) Document 07/25/18 05:00 ZHF1924 (Rec: 07/25/18 05:03 CRB1373 ICU-C15) Document 07/25/18 06:00 JFT4025 (Rec: 07/25/18 06:26 DPZ4037 ICU-M27) Document 07/25/18 06:52 PCH3135 (Rec: 07/25/18 06:52 GXU9091 ICU-L03) Document 07/25/18 07:32 RPD4716 (Rec: 07/25/18 07:32 FZT8550 ICU-M27) Document 07/25/18 08:00 JVI0340 (Rec: 07/25/18 08:11 YJW2813 ICU-C25) Document 07/25/18 09:00 ICV4435 (Rec: 07/25/18 09:02 FZH5132 ICU-M27) Document 07/25/18 10:00 YBN2316 (Rec: 07/25/18 10:33 ALE4174 ICU-M27) Document 07/25/18 12:00 CQZ5979 (Rec: 07/25/18 12:28 CJT2008 ICU-M27) Document 07/25/18 13:00 PBB6845 (Rec: 07/25/18 13:27 RIF0070 ICU-C06) Document 07/25/18 14:00 ROR7592 (Rec: 07/25/18 14:50 GAS3324 ICU-M27) Document 07/25/18 15:00 MHI0840 (Rec: 07/25/18 15:25 ELI4829 ICU-C25) Document 07/25/18 16:48 YBM6884 (Rec: 07/25/18 16:48 WWC4175 ICU-M27) Document 07/25/18 18:03 AXH0899 (Rec: 07/25/18 18:03 UGZ4667 ICU-C25) Document 07/25/18 19:00 QKA4128 (Rec: 07/25/18 19:33 YQE7969 ICU-M27) Document 07/25/18 20:00 WXS1266 (Rec: 07/25/18 20:03 HVA7676 ICU-M27) Document 07/25/18 21:00 IKC2364 (Rec: 07/25/18 21:32 AGQ8734 ICU-C15) Document 07/25/18 22:00 NLK2104 (Rec: 07/25/18 22:04 UKV1948 ICU-C15) Document 07/25/18 23:00 XAA9006 (Rec: 07/25/18 23:18 ATS5079 ICU-C15) Document 07/26/18 00:00 WDM2502 (Rec: 07/26/18 00:03 DYT0634 ICU-M27) Document 07/26/18 01:00 BVJ3826 (Rec: 07/26/18 01:05 UUJ5601 ICU-C15) Document 07/26/18 02:00 PDT9607 (Rec: 07/26/18 02:18 FFE6650 ICU-C15) Document 07/26/18 03:00 OLL5814 (Rec: 07/26/18 03:05 NMC2758 ICU-C15) Document 07/26/18 04:00 VRN9479 (Rec: 07/26/18 05:10 PDY5109 ICU-M27) Document 07/26/18 05:00 HJP1675 (Rec: 07/26/18 05:10 RTG3059 ICU-M27) Document 07/26/18 06:00 RAA1087 (Rec: 07/26/18 06:09 QEX1105 ICU-C15) Document 07/26/18 07:00 TNQ7547 (Rec: 07/26/18 07:24 OBH7773 ICU-C12) Document 07/26/18 08:00 TCG9017 (Rec: 07/26/18 09:07 AYB6807 ICU-C12) Document 07/26/18 09:00 NYH1551 (Rec: 07/26/18 09:07 VPV7661 ICU-C12) Document 07/26/18 10:00 PKQ3500 (Rec: 07/26/18 11:00 ZDV5299 ICU-C12) Document 07/26/18 11:00 HHD7147 (Rec: 07/26/18 11:00 DSL0717 ICU-C12) Document 07/26/18 15:00 MES5986 (Rec: 07/26/18 15:08 AZY5579 ICU-C12) Document 07/26/18 16:00 JJJ2486 (Rec: 07/26/18 16:04 SDE6380 ICU-C12) Document 07/26/18 16:04 CSZ3771 (Rec: 07/26/18 16:05 EEE6191 ICU-C12) Document 07/26/18 17:00 AOZ3810 (Rec: 07/26/18 17:50 MWC9223 ICU-C12) Document 07/26/18 17:50 NBR3398 (Rec: 07/26/18 17:50 PEE3368 ICU-C12) Document 07/26/18 19:00 OQH3954 (Rec: 07/26/18 20:27 FXR2567 ICU-M27) Document 07/26/18 20:00 QBZ5152 (Rec: 07/26/18 20:27 MBC0289 ICU-M27) Document 07/26/18 21:00 DSJ1155 (Rec: 07/26/18 22:34 ADM1658 ICU-C25) Document 07/26/18 22:00 HHL4378 (Rec: 07/26/18 22:34 WNK4482 ICU-C25) Document 07/26/18 23:00 WAZ1521 (Rec: 07/26/18 23:11 TYE8772 ICU-C25) Document 07/27/18 00:00 BEH2888 (Rec: 07/27/18 01:21 NQX0316 ICU-C25) Document 07/27/18 01:00 HSH5306 (Rec: 07/27/18 01:21 ANK1183 ICU-C25) Document 07/27/18 02:00 MKR0140 (Rec: 07/27/18 06:14 IFZ6160 ICU-C25) Document 07/27/18 03:00 FCB3550 (Rec: 07/27/18 06:14 KGV4796 ICU-C25) Document 07/27/18 04:00 TPY4480 (Rec: 07/27/18 06:14 KPB2324 ICU-C25) Document 07/27/18 05:00 SHU0778 (Rec: 07/27/18 06:14 CNQ5635 ICU-C25) Document 07/27/18 06:00 JJQ3680 (Rec: 07/27/18 06:14 LBC9431 ICU-C25) Document 07/27/18 07:00 JRI4120 (Rec: 07/27/18 07:48 EXZ3383 ICU-M27) Document 07/27/18 08:10 PGA8121 (Rec: 07/27/18 10:26 JPU1831 ICU-C20) Document 07/27/18 09:00 ANQ0654 (Rec: 07/27/18 10:28 BRR2230 ICU-C20) Document 07/27/18 10:00 DYD0775 (Rec: 07/27/18 12:34 JDQ5492 ICU-C12) Document 07/27/18 11:00 TSJ5742 (Rec: 07/27/18 12:34 MKS5868 ICU-C12) Document 07/27/18 12:00 PPM8332 (Rec: 07/27/18 13:27 HHH1190 ICU-C12) Document 07/27/18 13:00 SZB9478 (Rec: 07/27/18 13:29 NRU5058 ICU-C12) Document 07/27/18 14:00 XTW5803 (Rec: 07/27/18 15:41 XLB5746 ICU-C12) Document 07/27/18 15:00 DPQ8889 (Rec: 07/27/18 15:44 RWU0324 ICU-C12) Document 07/27/18 16:14 VJJ7774 (Rec: 07/27/18 16:14 ODY5192 ICU-C12) Document 07/27/18 17:00 TYZ2330 (Rec: 07/27/18 18:39 XZL3862 ICU-C12) Document 07/27/18 18:00 HSE2226 (Rec: 07/27/18 18:40 VHW1231 ICU-C12) Document 07/27/18 19:00 JIL9354 (Rec: 07/27/18 21:29 LLH9107 ICU-C14) Document 07/27/18 20:00 VTQ4244 (Rec: 07/27/18 21:29 TZY1605 ICU-C14) Document 07/27/18 21:00 KLL9421 (Rec: 07/27/18 21:29 EVG9686 ICU-C14) Document 07/27/18 22:00 PVY1980 (Rec: 07/27/18 22:27 IOZ9302 ICU-C14) Document 07/27/18 23:00 AJA8993 (Rec: 07/28/18 05:25 KUZ5738 ICU-C14) Document 07/28/18 00:00 KBG0262 (Rec: 07/28/18 05:25 QTL0009 ICU-C14) Document 07/28/18 01:00 PHN5402 (Rec: 07/28/18 05:25 NPL8298 ICU-C14) Document 07/28/18 02:00 LST5936 (Rec: 07/28/18 05:25 OJQ8314 ICU-C14) Document 07/28/18 03:00 DYZ2260 (Rec: 07/28/18 05:25 VIS3113 ICU-C14) Document 07/28/18 04:00 QCM0775 (Rec: 07/28/18 05:25 UDA5115 ICU-C14) Document 07/28/18 05:00 XWH8779 (Rec: 07/28/18 05:25 CKE3774 ICU-C14) Document 07/28/18 06:00 YTI7406 (Rec: 07/28/18 07:24 XRM4295 ICU-C14) Document 07/28/18 07:00 ZHG5618 (Rec: 07/28/18 07:24 BUM5589 ICU-C14) Document 07/28/18 09:00 MNQ3426 (Rec: 07/28/18 11:12 ICD2485 ICU-M27) Document 07/28/18 10:00 SUF5417 (Rec: 07/28/18 11:13 IMT6710 ICU-M27) Document 07/28/18 11:00 QTC9996 (Rec: 07/28/18 11:13 VPF2629 ICU-M27) Document 07/28/18 12:00 XZF0306 (Rec: 07/28/18 16:15 DMW2319 ICU-M27) Document 07/28/18 13:00 OPG0431 (Rec: 07/28/18 16:15 VGT7538 ICU-M27) Document 07/28/18 14:00 WOM0125 (Rec: 07/28/18 16:15 ZPI2724 ICU-M27) Document 07/28/18 15:00 RQL7505 (Rec: 07/28/18 16:15 HKN8568 ICU-M27) Document 07/28/18 16:00 OPD3165 (Rec: 07/28/18 17:42 QOO3795 ICU-M27) Document 07/28/18 17:00 DXL5464 (Rec: 07/28/18 17:42 ULB2885 ICU-M27) Document 07/28/18 18:00 SZY9485 (Rec: 07/28/18 18:01 MIR5799 ICU-M27) Document 07/28/18 19:00 XRF1802 (Rec: 07/28/18 19:34 NGZ6543 ICU-C12) Document 07/28/18 20:00 OAM2462 (Rec: 07/28/18 20:35 ODV9425 ICU-C12) Document 07/28/18 21:00 RAW8066 (Rec: 07/28/18 21:27 DZQ9225 ICU-C12) Document 07/28/18 22:00 QLK3667 (Rec: 07/28/18 22:21 BEL6897 ICU-C12) Document 07/28/18 23:00 BQV3906 (Rec: 07/28/18 23:19 PFK1827 ICU-C12) Document 07/29/18 00:00 FSV5064 (Rec: 07/29/18 00:24 SBK2052 ICU-C12) Document 07/29/18 01:00 UKB1717 (Rec: 07/29/18 01:20 EAZ0247 ICU-C12) Document 07/29/18 02:00 AOI1330 (Rec: 07/29/18 02:46 YRJ4977 ICU-C12) Document 07/29/18 03:00 THK2364 (Rec: 07/29/18 03:16 EOG7682 ICU-C12) Document 07/29/18 04:00 LEJ5634 (Rec: 07/29/18 04:07 CAG3127 ICU-C12) Document 07/29/18 05:00 BYH4582 (Rec: 07/29/18 05:44 CKW3232 ICU-C12) Document 07/29/18 06:00 KZP5470 (Rec: 07/29/18 06:15 SFA2355 ICU-C12) Document 07/29/18 06:16 YMV6020 (Rec: 07/29/18 06:17 CVN9474 ICU-C12) Document 07/29/18 06:17 BGL7079 (Rec: 07/29/18 06:17 LXA0752 ICU-C12) Document 07/29/18 07:00 FGU1877 (Rec: 07/29/18 08:17 FND7690 ICU-M27) Document 07/29/18 08:00 ZEW8771 (Rec: 07/29/18 08:17 LBG0770 ICU-M27) Document 07/29/18 09:00 AMJ0519 (Rec: 07/29/18 09:11 TOF7379 ICU-M27) Document 07/29/18 10:00 XRN5879 (Rec: 07/29/18 11:08 JHS0644 ICU-M27) Document 07/29/18 11:00 HTL7407 (Rec: 07/29/18 11:08 XCL7098 ICU-M27) Document 07/29/18 12:00 MJE2508 (Rec: 07/29/18 12:46 DRR8946 ICU-M27) Document 07/29/18 13:00 JCO3065 (Rec: 07/29/18 13:26 WFN1640 ICU-M27) Document 07/29/18 14:00 OIG4841 (Rec: 07/29/18 14:16 GOI4019 ICU-M27) Document 07/29/18 15:00 PMR4175 (Rec: 07/29/18 15:40 SHE5457 ICU-M27) Document 07/29/18 16:00 UJB3802 (Rec: 07/29/18 16:42 ZSJ3495 ICU-M27) Document 07/29/18 17:00 SEJ1482 (Rec: 07/29/18 17:42 KWX5677 ICU-M27) Document 07/29/18 18:00 RZF3938 (Rec: 07/29/18 18:45 CEX1132 ICU-C15) Document 07/29/18 19:00 SWQ4142 (Rec: 07/29/18 21:09 WSV7071 ICU-C12) Document 07/29/18 20:00 FHP3388 (Rec: 07/29/18 21:09 QQF7228 ICU-C12) Document 07/29/18 21:00 KAC4716 (Rec: 07/29/18 21:09 SQK1893 ICU-C12) Document 07/29/18 22:00 CHZ6609 (Rec: 07/29/18 22:21 POT8658 ICU-C12) Document 07/29/18 23:00 UML6325 (Rec: 07/30/18 00:45 RHH3948 ICU-C12) Document 07/30/18 00:00 XGM0257 (Rec: 07/30/18 00:45 YGO0716 ICU-C12) Document 07/30/18 01:00 OVW8156 (Rec: 07/30/18 04:53 RMZ9457 ICU-C12) Document 07/30/18 02:00 SUE1804 (Rec: 07/30/18 04:53 PCH6158 ICU-C12) Document 07/30/18 03:00 MDI7045 (Rec: 07/30/18 04:53 LSW8589 ICU-C12) Document 07/30/18 04:00 HBO7547 (Rec: 07/30/18 04:53 GAO1487 ICU-C12) Document 07/30/18 04:53 RBC2683 (Rec: 07/30/18 04:53 CTY4208 ICU-C12) Document 07/30/18 04:54 WRH3729 (Rec: 07/30/18 04:54 RIM5437 ICU-M22) Document 07/30/18 05:22 KIA5680 (Rec: 07/30/18 05:23 ZTM5134 ICU-C12) Document 07/30/18 07:00 YLJ9863 (Rec: 07/30/18 08:51 LBM0480 ICU-C25) Document 07/30/18 08:00 BLY2385 (Rec: 07/30/18 08:51 FWE3750 ICU-C25) Document 07/30/18 09:00 VAF3722 (Rec: 07/30/18 10:19 DTL8290 ICU-C25) Document 07/30/18 10:00 NJL3303 (Rec: 07/30/18 10:20 XYC8774 ICU-C25) Document 07/30/18 12:00 DDH7751 (Rec: 07/30/18 14:50 EDZ1389 ICU-C25) Document 07/30/18 13:00 EXF4550 (Rec: 07/30/18 14:51 RWE7462 ICU-C25) Document 07/30/18 15:00 WOI3779 (Rec: 07/30/18 15:07 JJN7382 ICU-C25) Document 07/30/18 16:00 DLG1165 (Rec: 07/30/18 19:13 BWQ8633 ICU-C06) Document 07/30/18 17:00 CCY4112 (Rec: 07/30/18 19:13 WLE1908 ICU-C06) Document 07/30/18 19:00 RZW5933 (Rec: 07/30/18 22:52 YJW2438 ICU-C07) Document 07/30/18 23:00 UPV4673 (Rec: 07/30/18 23:28 OSL4311 ICU-C07) Document 07/30/18 23:28 NZS3343 (Rec: 07/30/18 23:34 YAC9837 ICU-C07) Document 07/31/18 01:00 GKI8489 (Rec: 07/31/18 02:00 KKE9685 ICU-C07) Document 07/31/18 03:48 GLQ2235 (Rec: 07/31/18 03:59 CWC8683 ICU-C07) Document 07/31/18 05:21 XIS9433 (Rec: 07/31/18 05:23 WTV0720 ICU-M27) Document 07/31/18 07:00 OZP9527 (Rec: 07/31/18 07:57 ZDG4761 ICU-C25) Document 07/31/18 07:57 QFO3743 (Rec: 07/31/18 07:57 PZT9643 ICU-C25) Document 07/31/18 09:38 XMM8545 (Rec: 07/31/18 09:38 AMI1775 ICU-M27) Document 07/31/18 10:00 WJX7589 (Rec: 07/31/18 11:46 FLA9382 ICU-C25) Document 07/31/18 11:00 CFV3276 (Rec: 07/31/18 11:46 QXR3946 ICU-C25) Document 07/31/18 12:00 QWL5274 (Rec: 07/31/18 13:45 SHN5281 ICU-C25) Document 07/31/18 13:00 UUE7448 (Rec: 07/31/18 13:45 DMG0471 ICU-C25) Document 07/31/18 13:45 AMW0325 (Rec: 07/31/18 13:45 NUQ1360 ICU-C25) Document 07/31/18 15:36 EWV1937 (Rec: 07/31/18 15:36 RQT1988 ICU-C25) Document 07/31/18 17:51 YYS4840 (Rec: 07/31/18 17:51 TTP9577 ICU-M27) Document 07/31/18 19:00 COZ9132 (Rec: 07/31/18 22:29 NYM2857 ICU-M27) Document 07/31/18 20:00 EDG0630 (Rec: 07/31/18 22:29 QUO0478 ICU-M27) Document 07/31/18 21:00 EIN5881 (Rec: 07/31/18 22:29 TNB9002 ICU-M27) Document 07/31/18 22:00 LCR8184 (Rec: 07/31/18 22:29 GVC9558 ICU-M27) Document 07/31/18 23:00 TAD0766 (Rec: 07/31/18 23:29 HTT5088 ICU-C14) Document 08/01/18 00:00 EHX0774 (Rec: 08/01/18 00:16 MHV6246 ICU-M27) Document 08/01/18 01:00 HDU4613 (Rec: 08/01/18 01:45 HPL7682 ICU-C14) Document 08/01/18 02:00 ZPM3049 (Rec: 08/01/18 02:37 XGJ6593 ICU-C14) Document 08/01/18 03:00 ENH3397 (Rec: 08/01/18 03:15 VKQ0675 ICU-M27) Document 08/01/18 04:00 YAD1642 (Rec: 08/01/18 04:15 CJH7136 ICU-C14) Document 08/01/18 05:00 VOC4195 (Rec: 08/01/18 05:12 NIG8739 ICU-C14) Document 08/01/18 06:00 OLV3550 (Rec: 08/01/18 06:43 JVL5838 ICU-C14) Document 08/01/18 07:42 EON7223 (Rec: 08/01/18 07:42 REI1830 ICU-C12) Document 08/01/18 08:00 DUF7437 (Rec: 08/01/18 09:08 PRU2784 ICU-M27) Document 08/01/18 09:00 NIS9073 (Rec: 08/01/18 09:08 MSY4327 ICU-M27) Document 08/01/18 10:00 IVM1797 (Rec: 08/01/18 11:28 TNI5406 ICU-M27) Document 08/01/18 11:00 FEQ4813 (Rec: 08/01/18 11:28 TTE4756 ICU-M27) Document 08/01/18 13:24 PQA5996 (Rec: 08/01/18 13:24 DUA0695 ICU-M27) Document 08/01/18 14:00 GRT8482 (Rec: 08/01/18 14:58 HAG0214 ICU-M27) Document 08/01/18 14:58 PCJ7914 (Rec: 08/01/18 14:58 YLU8611 ICU-M27) Document 08/01/18 15:40 GKB8741 (Rec: 08/01/18 15:40 LZT2803 ICU-C12) Document 08/01/18 17:00 EVP4489 (Rec: 08/01/18 18:23 FQG1589 ICU-C12) Document 08/01/18 18:00 FXB8773 (Rec: 08/01/18 18:23 FCT6815 ICU-C12) Document 08/01/18 19:00 FEQ1776 (Rec: 08/01/18 20:14 HSE2310 ICU-M27) Document 08/01/18 20:00 VAD6403 (Rec: 08/01/18 20:14 AWV5974 ICU-M27) Document 08/01/18 21:00 MAL9951 (Rec: 08/01/18 23:28 TVR5060 ICU-C12) Document 08/01/18 22:00 GTJ7362 (Rec: 08/01/18 23:28 GFR4485 ICU-C12) Document 08/01/18 23:40 HKT5475 (Rec: 08/01/18 23:43 TOK0266 ICU-M27) Document 08/02/18 00:00 NLC1050 (Rec: 08/02/18 01:30 GGG6182 ICU-C12) Document 08/02/18 01:00 NKF1373 (Rec: 08/02/18 01:30 LDX9738 ICU-C12) Document 08/02/18 02:00 HXJ8420 (Rec: 08/02/18 02:03 ZVU5854 ICU-M27) Document 08/02/18 03:00 DXQ6666 (Rec: 08/02/18 03:40 RNG1817 ICU-M27) Document 08/02/18 04:25 JBD0536 (Rec: 08/02/18 04:25 JSX7158 ICU-M27) Document 08/02/18 05:00 FFH7404 (Rec: 08/02/18 05:52 XTT0401 ICU-M27) Document 08/02/18 05:52 EIQ9318 (Rec: 08/02/18 05:53 EOU0532 ICU-M27) Document 08/02/18 08:38 AWI0317 (Rec: 08/02/18 08:38 LMA0426 ICU-C12) Document 08/02/18 09:29 SVQ5855 (Rec: 08/02/18 09:29 JKG7085 ICU-M27) Document 08/02/18 11:11 XVS3766 (Rec: 08/02/18 11:11 VAN7378 ICU-C12) Document 08/02/18 12:24 YUY4630 (Rec: 08/02/18 12:24 JLZ3211 ICU-M27) Document 08/02/18 13:21 ZVM8076 (Rec: 08/02/18 13:21 SXN1991 ICU-C12) Document 08/02/18 13:56 IOI5432 (Rec: 08/02/18 13:56 QZI7796 ICU-M27) Document 08/02/18 15:00 PWK0176 (Rec: 08/02/18 15:01 ZZL5063 ICU-C12) Document 08/02/18 15:14 FEN2868 (Rec: 08/02/18 15:15 GIA6583 ICU-C12) Document 08/02/18 15:46 OOQ9592 (Rec: 08/02/18 15:54 SYO5628 ICU-M27) Document 08/02/18 16:09 DBH2909 (Rec: 08/02/18 16:10 MKF0714 ICU-M27) Document 08/02/18 17:06 WBK1676 (Rec: 08/02/18 17:06 IBD2085 ICU-C12) Document 08/02/18 18:01 LKK6953 (Rec: 08/02/18 18:01 BEF6246 ICU-C12) Document 08/02/18 19:00 AJQ3634 (Rec: 08/02/18 19:15 XTA6506 ICU-C12) Document 08/02/18 20:00 YKB1528 (Rec: 08/02/18 22:06 TXY9342 ICU-M27) Document 08/02/18 21:00 MJQ9156 (Rec: 08/02/18 22:06 ORA1610 ICU-M27) Document 08/02/18 22:00 QSW5551 (Rec: 08/02/18 22:06 QYX3204 ICU-M27) Document 08/02/18 23:00 LXK1183 (Rec: 08/03/18 00:33 ZHU9145 ICU-C12) Document 08/03/18 00:00 NUI1096 (Rec: 08/03/18 00:41 VEC6801 ICU-M27) Document 08/03/18 01:00 RGC1824 (Rec: 08/03/18 01:29 VKT7976 ICU-C12) Document 08/03/18 02:00 WOY8539 (Rec: 08/03/18 03:57 ULR6287 ICU-C12) Document 08/03/18 03:00 PIV7177 (Rec: 08/03/18 03:57 CRO5676 ICU-C12) Document 08/03/18 04:00 AAX8820 (Rec: 08/03/18 04:20 QDV1456 ICU-M27) Document 08/03/18 05:00 FBX1816 (Rec: 08/03/18 05:22 EPD4623 ICU-M27) Document 08/03/18 05:35 QAP2193 (Rec: 08/03/18 05:36 TIT3925 ICU-M27) Document 08/03/18 07:35 HXT3625 (Rec: 08/03/18 07:36 RAV9866 ICU-C12) Document 08/03/18 08:00 MAS0188 (Rec: 08/03/18 08:18 TQA7703 ICU-M27) Document 08/03/18 08:47 FNH8106 (Rec: 08/03/18 08:48 WGC0237 ICU-M27) Document 08/03/18 09:46 QDS1965 (Rec: 08/03/18 09:46 DEE6157 ICU-M27) Document 08/03/18 10:40 ZST3731 (Rec: 08/03/18 10:40 MFK4001 ICU-C12) Document 08/03/18 11:45 QGD2537 (Rec: 08/03/18 11:45 JNP0498 ICU-M27) Document 08/03/18 12:26 SBF0218 (Rec: 08/03/18 12:26 JZE1395 ICU-M27) Document 08/03/18 12:59 HHQ6516 (Rec: 08/03/18 12:59 JPM8674 ICU-C12) Document 08/03/18 13:46 HDN8766 (Rec: 08/03/18 13:46 QNO7230 ICU-M27) Document 08/03/18 14:46 RMW3361 (Rec: 08/03/18 14:47 JGP1851 ICU-M27) Document 08/03/18 15:49 SRJ1545 (Rec: 08/03/18 15:50 YHF8226 ICU-M27) Document 08/03/18 16:52 APE2509 (Rec: 08/03/18 16:52 APP8446 ICU-M27) Document 08/03/18 17:58 VZT4434 (Rec: 08/03/18 17:58 GGL5907 ICU-M27) Document 08/03/18 19:00 HPM9349 (Rec: 08/03/18 20:44 LJN8783 ICU-M27) Document 08/03/18 20:00 FSK9186 (Rec: 08/03/18 20:44 OLF3116 ICU-M27) Document 08/03/18 21:00 MVL5487 (Rec: 08/03/18 21:48 KIT1205 ICU-M27) Document 08/03/18 21:47 NUH3790 (Rec: 08/03/18 21:48 QXV4846 ICU-M27) Document 08/03/18 23:31 RXL5830 (Rec: 08/03/18 23:32 UKC1732 ICU-M27) Document 08/04/18 03:00 JHP4772 (Rec: 08/04/18 03:07 XDQ3768 ICU-C25) Document 08/04/18 04:00 NDC3622 (Rec: 08/04/18 05:23 YBU4505 ICU-M27) Document 08/04/18 05:00 FQM1616 (Rec: 08/04/18 05:23 XCA0373 ICU-M27) Document 08/04/18 06:00 XYP9642 (Rec: 08/04/18 06:17 HZU3025 ICU-C25) Document 08/04/18 07:00 HVA9056 (Rec: 08/04/18 08:36 YTK0681 ICU-C12) Document 08/04/18 10:00 VWB0403 (Rec: 08/04/18 13:41 LVW1611 ICU-C12) Document 08/04/18 11:00 MCB1015 (Rec: 08/04/18 13:42 WAQ3382 ICU-C12) Document 08/04/18 13:00 OIR5361 (Rec: 08/04/18 13:42 KRV0455 ICU-C12) Document 08/04/18 16:00 WIM0533 (Rec: 08/04/18 19:01 UZS6121 ICU-C12) Document 08/04/18 18:00 CSG1456 (Rec: 08/04/18 19:01 TWZ4706 ICU-C12) Document 08/04/18 20:00 ROU9342 (Rec: 08/04/18 22:34 HRT4736 ICU-C25) Document 08/05/18 00:00 EDQ8066 (Rec: 08/05/18 00:04 NDL2772 ICU-C25) Document 08/05/18 03:00 QVX0750 (Rec: 08/05/18 03:50 XBX6279 ICU-C25) Document 08/05/18 03:59 TTH8282 (Rec: 08/05/18 04:08 QZF8218 ICU-C25) Document 08/05/18 05:00 ASY0279 (Rec: 08/05/18 05:38 NPW2815 ICU-C25) Document 08/05/18 05:55 ZBR5749 (Rec: 08/05/18 06:36 RLR9775 ICU-C25) Document 08/05/18 08:30 NUQ9227 (Rec: 08/05/18 09:35 WCD5481 ICU-C10) Document 08/05/18 10:00 CTB9014 (Rec: 08/05/18 11:22 DOC7515 ICU-C10) Document 08/05/18 11:00 OWA1393 (Rec: 08/05/18 11:22 RUH1235 ICU-C10) Document 08/05/18 12:00 CXA3412 (Rec: 08/05/18 15:34 JLV8635 ICU-C10) Document 08/05/18 13:00 AIB3015 (Rec: 08/05/18 15:34 ELV6803 ICU-C10) Document 08/05/18 14:00 NFL7609 (Rec: 08/05/18 15:34 BXU2427 ICU-C10) Document 08/05/18 16:00 ZBA8732 (Rec: 08/05/18 18:25 XSX6789 ICU-C10) Document 08/05/18 17:00 HAE0706 (Rec: 08/05/18 18:25 OBA5398 ICU-C10) Document 08/05/18 18:00 CIF5976 (Rec: 08/05/18 18:25 PZY7997 ICU-C10) Document 08/05/18 19:00 KEG5081 (Rec: 08/05/18 19:49 KGY7351 ICU-M27) Document 08/05/18 20:00 XQM8402 (Rec: 08/05/18 20:51 QGN5534 ICU-M27) Document 08/05/18 21:00 FOU3181 (Rec: 08/05/18 21:16 QHU0684 ICU-M27) Document 08/05/18 22:00 UDR1311 (Rec: 08/05/18 22:11 RBQ2377 ICU-M27) Document 08/05/18 23:00 ZYU6221 (Rec: 08/05/18 23:16 FDS4436 ICU-M27) Document 08/06/18 00:00 EOK9183 (Rec: 08/06/18 00:35 BMV9746 ICU-M27) Document 08/06/18 01:00 FBV1328 (Rec: 08/06/18 01:02 JTM9013 ICU-M27) Document 08/06/18 02:00 GND9826 (Rec: 08/06/18 02:22 MRR8678 ICU-M27) Document 08/06/18 03:00 NQG4552 (Rec: 08/06/18 03:04 RSA4847 ICU-M27) Document 08/06/18 04:00 SJG8612 (Rec: 08/06/18 04:06 FHV6894 ICU-M27) Document 08/06/18 05:00 JKN2932 (Rec: 08/06/18 06:16 BRE4704 ICU-M30) Document 08/06/18 06:00 OTK4474 (Rec: 08/06/18 06:17 SLY6079 ICU-M30) Document 08/06/18 08:00 KXO8576 (Rec: 08/06/18 11:13 EFT2058 ICU-C15) Document 08/06/18 09:00 JYE1331 (Rec: 08/06/18 11:13 TBK0860 ICU-C15) Document 08/06/18 10:00 LDU7541 (Rec: 08/06/18 11:13 MWV0028 ICU-C15) Document 08/06/18 11:00 VXN5670 (Rec: 08/06/18 11:13 AWB9462 ICU-C15) Document 08/06/18 12:00 OUK6135 (Rec: 08/06/18 13:11 AMJ7103 ICU-C15) Document 08/06/18 12:15 BWS2655 (Rec: 08/06/18 12:15 JVL6455 ICU-C12) Document 08/06/18 13:00 BHU9976 (Rec: 08/06/18 13:01 UCU9171 ICU-M27) Document 08/06/18 14:00 MMC1704 (Rec: 08/06/18 14:05 KWK5532 ICU-C15) Document 08/06/18 14:52 ZDZ7052 (Rec: 08/06/18 14:52 RSN4068 ICU-C14) Document 08/06/18 16:00 CGC1840 (Rec: 08/06/18 17:21 XBF0759 ICU-C15) Document 08/06/18 17:00 OMC7476 (Rec: 08/06/18 17:21 SIJ5135 ICU-C15) Document 08/06/18 18:00 BYI0967 (Rec: 08/06/18 19:23 MFH2475 ICU-C15) Document 08/06/18 19:00 YUA5256 (Rec: 08/06/18 20:32 RCW7070 ICU-M27) Document 08/06/18 20:00 JFO7593 (Rec: 08/06/18 20:32 UJY7841 ICU-M27) Document 08/06/18 21:00 MNN7557 (Rec: 08/06/18 22:24 UDU0533 ICU-M27) Document 08/06/18 22:00 OFO1774 (Rec: 08/06/18 22:24 CNV0394 ICU-M27) Document 08/06/18 23:00 QEU9033 (Rec: 08/07/18 02:38 DIK5264 ICU-L03) Document 08/07/18 00:00 XNB7249 (Rec: 08/07/18 02:38 EMO4197 ICU-L03) Document 08/07/18 01:00 MHV6348 (Rec: 08/07/18 02:38 CIX6154 ICU-L03) Document 08/07/18 02:00 SFL0971 (Rec: 08/07/18 02:38 EYK6747 ICU-L03) Document 08/07/18 03:00 JET5536 (Rec: 08/07/18 03:05 DFF3926 ICU-L03) Document 08/07/18 04:00 UZW1514 (Rec: 08/07/18 07:43 YHI4417 ICU-L03) Document 08/07/18 05:00 VQP5424 (Rec: 08/07/18 07:43 RLW2059 ICU-L03) Document 08/07/18 06:00 SXV9069 (Rec: 08/07/18 07:43 FYI7227 ICU-L03) Document 08/07/18 07:00 LEI7974 (Rec: 08/07/18 07:43 XTH8346 ICU-L03) Document 08/07/18 08:00 QGO2730 (Rec: 08/07/18 08:23 OTV1875 ICU-C15) Document 08/07/18 09:00 CMH9810 (Rec: 08/07/18 09:12 RZM4662 ICU-M27) Labs: Laboratory Results - last 24 hr 08/06/18 08/06/18 08/07/18 12:57 17:38 00:11 Sodium Potassium Chloride Carbon Dioxide Anion Gap BUN Creatinine Est GFR ( Amer) Est GFR (Non-Af Amer) BUN/Creatinine Ratio Glucose POC Glucose (mg/dL) 134 H 157 H 139 H Calcium Magnesium 08/07/18 05:45 Sodium 145 Potassium 3.5 Chloride 113 H Carbon Dioxide 29 Anion Gap 3 BUN 21 Creatinine 0.34 L Est GFR ( Amer) 224.7 Est GFR (Non-Af Amer) 185.7 BUN/Creatinine Ratio 61.8 H Glucose 128 H POC Glucose (mg/dL) Calcium 8.0 L Magnesium 1.8 L Studies: CXR 08/07: persistent opacities bilaterally with improvement in the bases R>L compared to 08/04 CXR 08/04: Increased bilateral alveolar opacities compared to prior study Impression: Acute encephalopathy Critical illness neuromyopathy Prolonged mechanical ventilation Hypoxemic respiratory failure Pulmonary edema, anasarca Diarrhea CDAD Peg tube placement pending Plan: # Acute encephalopathy # Critical illness neuromyopathy # hx/o depression -weane precedex. Now at 0.1 -Mentation improving - responsive to lasix 20 mg x 1 today - start lasix 20 mg daily - on citalopram # Prolonged mechanical ventilation # Hypoxemic respiratory failure # Pulmonary edema, anasarca # PNA -Tolerating PS 15/PEEP 5/FIO2 25% -continue weaning PS - s/p abx tx. Afebrile, resp status improving to stable, and no leukocytosis- hold new abx - pending resp cx # Diarrhea # CDAD - c/w oral vanc and IV flagyl for total of 14 days - fiber for TF # s/p Peg tube placement 08/07 will start TF as per clearance from GI # HTN BP optimized on atenololo, lisinopril DVT PPX: Enoxaparin Prognosis: Guarded Critical care issues: acute respiratory failure due to hypoxemia, mechanical ventilation, precedex Critical Care Time: 45 mins
[2018-08-07] MEDS: Vancomycin CAP* 125 MG CAP SCH (10:00)
[2018-08-07] MEDS: fentaNYL* 50 MCG/ML 2 ML VIAL (100 MCG VIAL) IV SLOW PU PRN ×3 (10:03→19:46)
[2018-08-07 10:20] LABS: INR 1.23 (0.77-1.02)
[2018-08-07] MEDS: VANCOMYCIN NG TUBE SCH (11:10)
[2018-08-07] MEDS ORDERED: Hydrocortisone 1% CREAM* 30 GM TUBE TOPICAL PRN (11:45)
[2018-08-07] MEDS ORDERED: fentaNYL* 50 MCG/ML 2 ML VIAL (100 MCG VIAL) ONE (12:28)
[2018-08-07] MEDS ORDERED: Midazolam* 1 MG/ML 10 ML VIAL (10 MG) ONE (12:28)
[2018-08-07] MEDS ORDERED: Furosemide IV* 10 MG/ML 2 ML VIAL (20 MG) IV ONE (12:37)
[2018-08-07 13:00] LABS: Phosphorus 3.8 mg/dL (2.5-5.0)
[2018-08-07] MEDS ORDERED: Furosemide IV* 10 MG/ML 2 ML VIAL (20 MG) ONE (13:09)
[2018-08-07] MEDS: VANCOMYCIN G TUBE SCH ×4 (13:19→21:22)
--- NOTE | 2018-08-07 22:08 | PRO ---
DATE OF PROCEDURE: 08/07/18 - ROOM #ICU-06 PROCEDURE PERFORMED: EGD with PEG tube placement. INDICATION: Dysphagia. MEDICATIONS GIVEN: 1. 50 mcg IV Fentanyl. 2. 5 mg IV Versed. 3. The patient is also already on vancomycin and Flagyl. PROCEDURE: After the EGD procedure, including the risks, benefits, and alternatives not limited to perforation, surgery, and/or were explained to the patient and her daughter, written consent was then obtained, IV medication was given, and a bite-block was placed between the teeth. An Olympus gastroscope was then inserted into the patient's mouth, advanced down the esophagus, into the stomach, and into duodenal bulb. The only abnormality seen were numerous polyps within the stomach. At that point, I then insufflated the stomach and using finger indentation that was located approximately 5 fingerbreadths below and 5 fingerbreadth to the left of her xiphoid process, I located a very good spot for the PEG tube. Finger indentation was successful. I then thoroughly cleaned her skin, thoroughly sterilized her skin, and then injected 1 cc of 1% lidocaine into her subcutaneous skin. I then used the finder needle to go a little bit deeper The needle extended into the stomach within approximately 1 to 2 cm. I instilled lidocaine for numbing effect. The needle was withdrawn. A small incision was created and then the trocar needle was placed through the previous access site and extended into the lumen of the stomach very easily. I then placed a blue wire through the trocar needle. It was grasped with a snare and then withdrawn from the patient. The PEG tube was tied on to the end of the blue wire and then successfully pulled into place. Second look endoscopy confirms successful placement within the gastric lumen. The patient tolerated the procedure well and she was returned to the care of the ICU staff. IMPRESSION: 1. Complete upper endoscopy into the duodenum with successful PEG tube placement. 2. PEG tube placement. 3. Gastric polyps. 4. She will need to be cleared by GI tomorrow morning, Tuesday, prior to use of the PEG tube. [id number]/[facility] #: [id number] [place]
[2018-08-08] MEDS: fentaNYL* 50 MCG/ML 2 ML VIAL (100 MCG VIAL) IV SLOW PU PRN ×2 (00:01→14:26)
[2018-08-08] MEDS: Bacitracin OINTMENT* 0.5% 0.5 oz TUBE TOPICAL SCH ×2 (00:01→08:00)
[2018-08-08] MEDS: Nystatin CREAM* 15 GM TUBE TOPICAL SCH ×3 (00:02→14:30)
[2018-08-08] MEDS: Insulin LISPRO* 1 UNITS UNIT SUBCUT SCH ×4 (00:58→18:12)
[2018-08-08] MEDS: Dexmedetomidine* 400 MCG in NS 0.9% 100 ML* 96 ML IVPB SCH ×2 (01:37→14:17)
[2018-08-08] MEDS: metroNIDAZOLE IV 500 MG/100ML* 500 MG/100 ML BAG IVPB SCH ×3 (05:10→19:47)
[2018-08-08] MEDS: Levothyroxine TAB* 150 MCG TAB NG TUBE SCH (06:34)
--- NOTE | 2018-08-08 09:47 | PN ---
Date of Service: 08/08/18 Critical Care Services: 78 F with hx/o Thyroid Ca s/p resection and XRT, chronic pain, AF, s/p PPM for arrhythmias, with prolonged mechanical ventilation Current complains:communicates with facial gestures and head nodding. She complains of generalized pain- abdomen, head, intermittent chest pain but tolerable and not new. Overnight issues: Increased temperature overnight. Stayed on PS 15 overnight. Had PEG placed 08/07 Vital Signs: Temp Pulse Resp BP SpO2 FiO2 100.2 F 70 17 130/52 95 45 08/08/18 04:01 08/08/18 08:00 08/08/18 09:00 08/08/18 08:00 08/08/18 08:00 08/08 08:00 Physical Exam: Gen: NAD. HEENT: Trach stoma intact with tracheostomy in place. NCAT, PERRL Lungs: clear to auscultation bilaterally Cardiac: S1S2, RRR Abdomen: SNTND, +BS Extremities: 2-3+ edema Neuro:Non focal Fluid Balance (Past 24 Hours): I= O= Net Intake & Output 08/06/18 08/07/18 08/08/18 08/09/18 06:59 06:59 06:59 06:59 Intake Total 2859 3884.5 975 Output Total 3478 4430 3135 80 Balance -619 -545.5 -2160 -80 Weight 198 lb 11.567 oz 192 lb 3.889 oz 194 lb 0.108 oz Intake: IV Fluids 688 568 537 Antibiotics 211 NS w meds 295 537 194 Normal Saline 393 31 132 IVPB 400 363 NS w meds 291 363 Normal Saline 109 Medicated IV 68 162.5 46 CC - Dexmedetomidine/ 52 91.5 46 Precedex lasix 71 propofol 16 Oral 0 Tube Feeding 748 1716 230 Tube Feeding Flush Amount 900 1075 Albumin 162 NG Tube Irrigate Amount 55 0 Output: Urine 390 125 Walsh 2188 4305 2335 80 Liquid Stool 900 800 Tube Feeding Residual 0 0 Amount Wasted ADLs: Meal Record Start: 07/17/18 17: 39 Freq: Status: Active Protocol: Created 07/17/18 17:39 System (Rec: 07/17/18 17:39 System ICU-C20) Document 07/17/18 18:00 XWV0329 (Rec: 07/17/18 18:09 OCZ6823 ICU-C12) Document 07/18/18 09:00 POK8849 (Rec: 07/18/18 10:08 FGV9815 ICU-C15) Document 07/18/18 13:00 PRW7586 (Rec: 07/18/18 13:24 CIB3542 ICU-C15) Document 07/18/18 18:00 VLC2014 (Rec: 07/18/18 18:15 QSN7438 ICU-C15) Document 07/19/18 09:00 MXW0195 (Rec: 07/19/18 09:05 PFV8252 ICU-M27) Document 07/19/18 12:57 NLD0382 (Rec: 07/19/18 12:58 KLM4332 ICU-L03) Document 07/19/18 18:00 KQH8203 (Rec: 07/19/18 18:32 FND2164 ICU-C15) Document 07/20/18 09:00 GKB1522 (Rec: 07/20/18 09:21 XPF9652 ICU-C15) Document 07/20/18 13:00 SJB5362 (Rec: 07/20/18 13:27 MGI7547 ICU-C15) Document 07/20/18 17:06 MPN1606 (Rec: 07/20/18 17:06 XSI0747 ICU-C15) Document 07/21/18 08:55 VZO7528 (Rec: 07/21/18 08:55 EQT5942 ICU-M27) Document 07/21/18 12:37 BDV5688 (Rec: 07/21/18 12:37 DRM5633 ICU-C12) Document 07/21/18 17:01 RGY5393 (Rec: 07/21/18 17:01 NDY9199 ICU-C12) Document 07/22/18 09:00 UAH0989 (Rec: 07/22/18 09:11 FAA6963 ICU-M27) Document 07/22/18 13:20 GUR8991 (Rec: 07/22/18 13:20 NUB6401 ICU-C12) Document 07/22/18 17:04 YUW6155 (Rec: 07/22/18 17:04 FDM1389 ICU-C12) Document 07/23/18 09:00 VRA7938 (Rec: 07/23/18 09:39 KNR7335 ICU-C12) Document 07/23/18 13:00 DGK0925 (Rec: 07/23/18 13:43 AOY6758 ICU-C12) Document 07/24/18 09:00 BWV6384 (Rec: 07/24/18 09:12 NQN6199 ICU-C12) Document 07/24/18 13:00 RCG8952 (Rec: 07/24/18 13:02 QGD7844 ICU-C12) Document 07/24/18 18:00 NGZ6637 (Rec: 07/24/18 18:02 ZII7080 ICU-M27) Intake and Output Start: 07/17/18 15: 30 Freq: Status: Active Protocol: Created 07/17/18 15:30 System (Rec: 07/17/18 15:30 System EDRM-C04) Intake and Output Start: 07/17/18 17: 39 Freq: Q1HR Status: Active Protocol: Created 07/17/18 17:39 System (Rec: 07/17/18 17:39 System ICU-C20) Document 07/17/18 18:00 IBS8323 (Rec: 07/17/18 18:09 QYI7985 ICU-C12) Document 07/17/18 20:00 IFJ1054 (Rec: 07/17/18 21:35 XXZ8195 ICU-C12) Document 07/17/18 21:00 BXK1176 (Rec: 07/17/18 22:27 ONG2802 ICU-M27) Document 07/17/18 22:00 YDM2730 (Rec: 07/18/18 00:01 ION8712 ICU-C12) Document 07/17/18 23:00 JAF1621 (Rec: 07/18/18 00:01 SDV0276 ICU-C12) Document 07/18/18 00:00 WKK3940 (Rec: 07/18/18 02:55 WXS7913 ICU-C12) Document 07/18/18 01:00 HWX1296 (Rec: 07/18/18 02:55 QNK5633 ICU-C12) Document 07/18/18 02:00 SFV4918 (Rec: 07/18/18 02:55 DWX8336 ICU-C12) Document 07/18/18 03:00 VAS9066 (Rec: 07/18/18 03:16 AYV3022 ICU-C12) Document 07/18/18 04:00 IDP3318 (Rec: 07/18/18 05:15 XXA1874 ICU-M27) Document 07/18/18 06:30 IQD2717 (Rec: 07/18/18 06:30 PDV8094 ICU-M27) Document 07/18/18 07:00 KHH1307 (Rec: 07/18/18 07:22 IWX8149 ICU-M27) Document 07/18/18 08:00 KQD3518 (Rec: 07/18/18 09:14 CLF1863 ICU-M27) Document 07/18/18 09:00 KMV6629 (Rec: 07/18/18 09:15 IXM2988 ICU-M27) Document 07/18/18 10:00 CDR6147 (Rec: 07/18/18 10:08 MMQ9876 ICU-C15) Document 07/18/18 11:00 UIK2050 (Rec: 07/18/18 11:07 YNO4115 ICU-M27) Document 07/18/18 12:00 LIW8608 (Rec: 07/18/18 12:25 IWZ2289 ICU-C15) Document 07/18/18 13:00 TDW2464 (Rec: 07/18/18 13:24 SCH7584 ICU-C15) Document 07/18/18 14:00 FWP4335 (Rec: 07/18/18 14:14 BOD3883 ICU-C15) Document 07/18/18 15:00 APY7560 (Rec: 07/18/18 15:13 ZEZ0602 ICU-C15) Document 07/18/18 16:00 TCZ1553 (Rec: 07/18/18 17:41 HXC3285 ICU-C15) Document 07/18/18 17:00 BSB4821 (Rec: 07/18/18 17:58 IOG4455 ICU-C15) Document 07/18/18 18:00 QVX6881 (Rec: 07/18/18 18:15 PNR8195 ICU-C15) Document 07/18/18 21:55 LTI0801 (Rec: 07/18/18 21:55 RRR0486 ICU-M27) Document 07/18/18 23:00 RTV8982 (Rec: 07/18/18 23:31 UFL6964 ICU-C15) Document 07/18/18 23:59 PVQ5856 (Rec: 07/18/18 23:59 FVD5070 ICU-M27) Document 07/19/18 02:58 QRE0699 (Rec: 07/19/18 02:58 NXD0482 ICU-C14) Document 07/19/18 03:00 WJV6670 (Rec: 07/19/18 03:15 HZL9392 ICU-M27) Document 07/19/18 04:00 HNN3797 (Rec: 07/19/18 05:28 ZTW1934 ICU-C15) Document 07/19/18 05:00 YJD3993 (Rec: 07/19/18 05:32 YKE2578 ICU-C15) Document 07/19/18 06:00 XIP3104 (Rec: 07/19/18 06:35 ZKB7089 ICU-C15) Document 07/19/18 07:00 MLW7678 (Rec: 07/19/18 09:03 ZIE9905 ICU-M27) Document 07/19/18 08:00 WWJ4966 (Rec: 07/19/18 09:03 IDB5945 ICU-M27) Document 07/19/18 09:00 KGU3413 (Rec: 07/19/18 09:03 KTT8056 ICU-M27) Document 07/19/18 10:00 HUN8232 (Rec: 07/19/18 10:41 ORP5347 ICU-M27) Document 07/19/18 10:45 HUW9721 (Rec: 07/19/18 10:45 MJD3470 ICU-M27) Document 07/19/18 11:00 NRU5546 (Rec: 07/19/18 11:04 LXV7059 ICU-M27) Document 07/19/18 12:00 RUQ5205 (Rec: 07/19/18 12:12 ZKO2514 ICU-M27) Document 07/19/18 12:59 HNX1759 (Rec: 07/19/18 12:59 QPB4161 ICU-L03) Document 07/19/18 13:56 QXR6980 (Rec: 07/19/18 13:57 AZN2309 ICU-L03) Document 07/19/18 14:54 FTV9152 (Rec: 07/19/18 14:54 BEF1145 ICU-L03) Document 07/19/18 16:00 IWD7910 (Rec: 07/19/18 16:42 LLM2088 ICU-C15) Document 07/19/18 17:00 HVF4404 (Rec: 07/19/18 18:31 LTN2658 ICU-C15) Document 07/19/18 18:00 HTZ6937 (Rec: 07/19/18 18:32 IHW8571 ICU-C15) Document 07/19/18 19:00 PEN3002 (Rec: 07/19/18 19:16 VVO5753 ICU-M27) Document 07/19/18 21:00 CQB0154 (Rec: 07/19/18 21:27 SHX2158 ISDEMO-M03 ) Document 07/19/18 22:00 YPQ3350 (Rec: 07/19/18 22:13 QWZ2806 ICU-L03) Document 07/19/18 22:54 DCL0091 (Rec: 07/19/18 22:54 OWM6288 ICU-M27) Document 07/20/18 00:00 PBJ9859 (Rec: 07/20/18 01:34 RGE7037 ICU-L03) Document 07/20/18 01:00 GOI2314 (Rec: 07/20/18 01:34 UWS9817 ICU-L03) Document 07/20/18 02:00 MDS4824 (Rec: 07/20/18 02:07 MHC1171 ICU-L03) Document 07/20/18 03:00 EEH2548 (Rec: 07/20/18 04:37 SXK5608 ICU-L03) Document 07/20/18 04:00 DJW7233 (Rec: 07/20/18 04:37 GQP5774 ICU-L03) Document 07/20/18 05:00 PNI1077 (Rec: 07/20/18 05:12 UTR2851 ICU-L03) Document 07/20/18 06:00 HLZ5700 (Rec: 07/20/18 06:07 WIT7940 ICU-M27) Document 07/20/18 07:00 RFT5864 (Rec: 07/20/18 07:32 QWY8019 ICU-C15) Document 07/20/18 08:00 LJE3285 (Rec: 07/20/18 09:00 YPZ0733 ICU-C15) Document 07/20/18 09:00 FRV2429 (Rec: 07/20/18 09:19 HWX0971 ICU-C15) Document 07/20/18 10:00 PYX0094 (Rec: 07/20/18 10:46 FOS8779 ICU-C15) Document 07/20/18 10:47 CDJ5285 (Rec: 07/20/18 10:47 MIC3921 ICU-C15) Document 07/20/18 12:17 KAV1918 (Rec: 07/20/18 12:17 HBK1428 ICU-C15) Document 07/20/18 13:00 CSC7319 (Rec: 07/20/18 13:27 CFP2607 ICU-C15) Document 07/20/18 14:16 RSD9981 (Rec: 07/20/18 14:16 WDG1064 ICU-M27) Document 07/20/18 15:00 UID8482 (Rec: 07/20/18 15:03 HFH0857 ICU-M27) Document 07/20/18 16:14 OWE7939 (Rec: 07/20/18 16:14 DXC0308 ICU-M27) Document 07/20/18 17:07 QYN7563 (Rec: 07/20/18 17:07 QZI4127 ICU-C15) Document 07/20/18 18:20 WVZ9496 (Rec: 07/20/18 18:20 TBN9846 ISDEKS-M03 ) Document 07/20/18 19:00 QEE9315 (Rec: 07/20/18 21:34 QGZ4100 ICU-C15) Document 07/20/18 21:00 EYL0753 (Rec: 07/20/18 21:35 GMB0733 ICU-C15) Document 07/20/18 22:00 GPT7360 (Rec: 07/20/18 22:12 KTJ4500 ICU-C15) Document 07/20/18 23:00 BQG8449 (Rec: 07/20/18 23:13 AQQ6045 ICU-C15) Document 07/21/18 01:00 CLE2784 (Rec: 07/21/18 01:35 FHD0177 ICU-C15) Document 07/21/18 02:00 PRM9741 (Rec: 07/21/18 02:14 GTY5866 ICU-C15) Document 07/21/18 03:00 KWL2381 (Rec: 07/21/18 03:44 QMF4648 ICU-C25) Document 07/21/18 05:00 RXL6028 (Rec: 07/21/18 05:05 UWF1619 ICU-C15) Document 07/21/18 06:00 ECR5222 (Rec: 07/21/18 06:23 TMS7273 ICU-C15) Document 07/21/18 07:00 NZP6970 (Rec: 07/21/18 07:20 LRH2939 ICU-C12) Document 07/21/18 08:11 NBA0111 (Rec: 07/21/18 08:11 IKN5777 ICU-M27) Document 07/21/18 08:54 TWG7712 (Rec: 07/21/18 08:55 UTL8672 ICU-M27) Document 07/21/18 10:00 SSN5269 (Rec: 07/21/18 10:03 MBH8408 ICU-C12) Document 07/21/18 10:59 OPQ0347 (Rec: 07/21/18 10:59 RAZ0400 ICU-C12) Document 07/21/18 12:33 HTV0485 (Rec: 07/21/18 12:33 TGK8209 ICU-C12) Document 07/21/18 13:06 TAJ7400 (Rec: 07/21/18 13:06 VAH1498 ICU-C12) Document 07/21/18 14:00 HGJ0352 (Rec: 07/21/18 14:06 PRT5869 ICU-C12) Document 07/21/18 16:00 XRS8947 (Rec: 07/21/18 16:01 WXY0639 ICU-C12) Document 07/21/18 16:54 GNB8843 (Rec: 07/21/18 16:54 SKY3612 ICU-C12) Document 07/21/18 18:00 IFX9030 (Rec: 07/21/18 18:02 BLF8467 ICU-C12) Document 07/21/18 19:00 LBP0053 (Rec: 07/21/18 19:56 SZV5175 ICU-C15) Document 07/21/18 20:00 GTO8889 (Rec: 07/21/18 21:16 DTI5351 ICU-C15) Document 07/21/18 21:00 CFA9980 (Rec: 07/21/18 21:16 HZC4489 ICU-C15) Document 07/21/18 22:00 XCC5903 (Rec: 07/21/18 22:01 XIE1192 ICU-C15) Document 07/21/18 23:00 MAK9606 (Rec: 07/22/18 00:28 TCO2527 ICU-C15) Document 07/22/18 00:00 TKR6455 (Rec: 07/22/18 00:28 GXR9125 ICU-C15) Document 07/22/18 01:00 IDU8628 (Rec: 07/22/18 01:29 PTQ4035 ICU-C15) Document 07/22/18 02:00 FGI3288 (Rec: 07/22/18 03:53 UWG0000 ICU-C15) Document 07/22/18 03:00 ELW0990 (Rec: 07/22/18 03:54 BEA6464 ICU-C15) Document 07/22/18 04:00 JIX8514 (Rec: 07/22/18 05:40 UCJ4246 ICU-M27) Document 07/22/18 05:00 BTR6553 (Rec: 07/22/18 05:40 PZR3138 ICU-M27) Document 07/22/18 05:39 XWH2475 (Rec: 07/22/18 05:40 WDI5584 ICU-M27) Document 07/22/18 07:56 KBO5414 (Rec: 07/22/18 07:57 DDR8762 ICU-M27) Document 07/22/18 09:00 RKF6793 (Rec: 07/22/18 09:11 BZM0622 ICU-M27) Document 07/22/18 09:58 XRI9329 (Rec: 07/22/18 09:58 YTW8440 ICU-M27) Document 07/22/18 11:00 NVV3277 (Rec: 07/22/18 11:06 YPU1869 ICU-C12) Document 07/22/18 12:35 JKC8157 (Rec: 07/22/18 12:35 SWQ2083 ICU-C12) Document 07/22/18 13:31 CSJ9158 (Rec: 07/22/18 13:31 SCD4716 ICU-C12) Document 07/22/18 14:20 PDE7409 (Rec: 07/22/18 14:20 LYJ7714 ICU-M27) Document 07/22/18 15:05 BBH4354 (Rec: 07/22/18 15:05 CPN3147 ICU-C12) Document 07/22/18 15:58 XTQ2647 (Rec: 07/22/18 15:58 DZF0242 ICU-C12) Document 07/22/18 17:02 HFX9126 (Rec: 07/22/18 17:03 EPK7623 ICU-C12) Document 07/22/18 18:14 QBI8282 (Rec: 07/22/18 18:15 UHD4488 ICU-C12) Document 07/22/18 19:00 RPT8832 (Rec: 07/22/18 20:14 RML1265 ICU-C15) Document 07/22/18 20:00 TAV6836 (Rec: 07/22/18 20:14 BWC5749 ICU-C15) Document 07/22/18 21:00 FCK8037 (Rec: 07/22/18 21:06 YWZ5424 ICU-C15) Document 07/22/18 22:00 JXR4140 (Rec: 07/22/18 22:16 MQN0884 ICU-C15) Document 07/22/18 23:00 MRK6635 (Rec: 07/22/18 23:54 IFM7612 ICU-C15) Document 07/22/18 23:54 GRN1990 (Rec: 07/22/18 23:54 VLF0463 ICU-C15) Document 07/23/18 01:00 XUV9747 (Rec: 07/23/18 03:26 JWI9198 ICU-M27) Document 07/23/18 02:00 OBG7272 (Rec: 07/23/18 03:26 LBN2058 ICU-M27) Document 07/23/18 03:00 BYN4932 (Rec: 07/23/18 03:26 SUN6806 ICU-M27) Document 07/23/18 04:00 MAY8400 (Rec: 07/23/18 05:11 QKW8440 ICU-C15) Document 07/23/18 05:00 HYD6353 (Rec: 07/23/18 05:11 KCT3163 ICU-C15) Document 07/23/18 06:00 NQZ1690 (Rec: 07/23/18 06:30 TIY4760 ICU-C15) Document 07/23/18 07:00 ZWD7386 (Rec: 07/23/18 08:18 CFG8395 ICU-C12) Document 07/23/18 08:00 QTD9202 (Rec: 07/23/18 08:57 MKR2943 ICU-M27) Document 07/23/18 08:00 UTV4992 (Rec: 07/23/18 08:57 YFM2689 ICU-M27) Document 07/23/18 09:00 BDB5131 (Rec: 07/23/18 09:44 MRD3216 ICU-C12) Document 07/23/18 10:00 TYM6174 (Rec: 07/23/18 10:05 MMR4121 ICU-M27) Document 07/23/18 11:00 PPF6936 (Rec: 07/23/18 11:11 CFE1366 ICU-C12) Document 07/23/18 12:00 PYC2226 (Rec: 07/23/18 12:11 EFR0610 ICU-C12) Document 07/23/18 13:00 JPH8177 (Rec: 07/23/18 13:51 MBW2981 ICU-C12) Document 07/23/18 14:00 RDP9851 (Rec: 07/23/18 17:04 AVI7063 ICU-M27) Document 07/23/18 15:00 JGE4133 (Rec: 07/23/18 17:04 ZDC0529 ICU-M27) Document 07/23/18 16:00 DDR3591 (Rec: 07/23/18 17:04 CRQ5704 ICU-M27) Document 07/23/18 17:00 XNX5909 (Rec: 07/23/18 17:04 UXJ7040 ICU-M27) Document 07/23/18 17:08 AOB6824 (Rec: 07/23/18 17:09 SPR6304 ICU-M27) Document 07/23/18 18:00 LTR7936 (Rec: 07/23/18 18:58 HKA5071 ICU-C12) Document 07/23/18 19:00 DMH9317 (Rec: 07/23/18 19:01 PRU1661 ICU-C12) Document 07/23/18 20:00 NRW9260 (Rec: 07/23/18 20:03 EYA2342 ICU-M27) Document 07/23/18 21:00 LZP3730 (Rec: 07/23/18 22:20 WTP4644 ICU-M27) Document 07/23/18 22:00 DVD2712 (Rec: 07/23/18 22:20 SKO9095 ICU-M27) Document 07/23/18 23:00 VLW5950 (Rec: 07/23/18 23:12 KBF1753 ICU-C25) Document 07/24/18 00:00 LTQ7574 (Rec: 07/24/18 00:39 ODB0899 ICU-C25) Document 07/24/18 01:00 BDP8838 (Rec: 07/24/18 01:04 WYO7579 ICU-M27) Document 07/24/18 02:00 YBM1526 (Rec: 07/24/18 03:10 IUG9554 ICU-C25) Document 07/24/18 03:00 RFI9606 (Rec: 07/24/18 03:10 BRT0221 ICU-C25) Document 07/24/18 04:00 JRC0155 (Rec: 07/24/18 04:06 GXO2302 ICU-C25) Document 07/24/18 05:00 AMA3833 (Rec: 07/24/18 05:19 XQT5900 ICU-C25) Document 07/24/18 06:00 TNB8150 (Rec: 07/24/18 06:14 EDK7383 ICU-M27) Document 07/24/18 07:00 OFF6383 (Rec: 07/24/18 07:19 ROD4174 ICU-C25) Document 07/24/18 08:00 WXI8769 (Rec: 07/24/18 09:00 WXR3914 ICU-C12) Document 07/24/18 09:00 BIK6820 (Rec: 07/24/18 09:00 BVP3571 ICU-C12) Document 07/24/18 10:00 LQK4395 (Rec: 07/24/18 11:47 WZS8686 ICU-C12) Document 07/24/18 11:00 WRU1914 (Rec: 07/24/18 11:47 KKH2437 ICU-C12) Document 07/24/18 12:00 UMJ7223 (Rec: 07/24/18 12:12 LIH5491 ICU-C12) Document 07/24/18 13:00 EZR8136 (Rec: 07/24/18 13:01 CFU1186 ICU-C12) Document 07/24/18 14:00 RPQ8551 (Rec: 07/24/18 14:07 KDH6602 ICU-C12) Document 07/24/18 14:14 MNO2348 (Rec: 07/24/18 14:14 RTZ2803 ICU-C12) Document 07/24/18 15:00 QPU6558 (Rec: 07/24/18 15:04 EFO4485 ICU-C12) Document 07/24/18 16:34 DLC8011 (Rec: 07/24/18 16:34 HWK5732 ICU-C12) Document 07/24/18 17:00 LGY0497 (Rec: 07/24/18 17:52 ZKM9873 ICU-M27) Document 07/24/18 17:52 IVZ7554 (Rec: 07/24/18 17:52 OMU1368 ICU-M27) Document 07/24/18 19:00 WCQ0184 (Rec: 07/24/18 21:01 LVD7969 ICU-C15) Document 07/24/18 20:00 NDR5384 (Rec: 07/24/18 21:01 GVD9493 ICU-C15) Document 07/24/18 21:00 NCN8807 (Rec: 07/24/18 22:21 FIR3043 ICU-C15) Document 07/24/18 22:00 ZOH8799 (Rec: 07/24/18 22:21 KRW9389 ICU-C15) Document 07/24/18 23:00 VCL1811 (Rec: 07/24/18 23:05 WEJ6951 ICU-C15) Document 07/25/18 00:00 ARD7761 (Rec: 07/25/18 00:02 WVF9038 ICU-C15) Document 07/25/18 01:00 HDW5715 (Rec: 07/25/18 01:21 RLP3759 ICU-C15) Document 07/25/18 02:00 API2064 (Rec: 07/25/18 02:51 XYM5541 ICU-C15) Document 07/25/18 03:00 DQO4134 (Rec: 07/25/18 04:28 WHT1122 ICU-C15) Document 07/25/18 04:00 XYY4906 (Rec: 07/25/18 04:28 ZPA1086 ICU-C15) Document 07/25/18 05:00 JBG1209 (Rec: 07/25/18 05:03 UOG3316 ICU-C15) Document 07/25/18 06:00 CTB8065 (Rec: 07/25/18 06:26 TKK0794 ICU-M27) Document 07/25/18 06:52 EUB9188 (Rec: 07/25/18 06:52 DIT3165 ICU-L03) Document 07/25/18 07:32 FNY7559 (Rec: 07/25/18 07:32 BJA0056 ICU-M27) Document 07/25/18 08:00 HKY7915 (Rec: 07/25/18 08:11 YIY4040 ICU-C25) Document 07/25/18 09:00 QTZ5786 (Rec: 07/25/18 09:02 YEX1606 ICU-M27) Document 07/25/18 10:00 BDE9530 (Rec: 07/25/18 10:33 GKV1715 ICU-M27) Document 07/25/18 12:00 BBE4864 (Rec: 07/25/18 12:28 RUP2988 ICU-M27) Document 07/25/18 13:00 HFP3587 (Rec: 07/25/18 13:27 SWM9397 ICU-C06) Document 07/25/18 14:00 JJM4290 (Rec: 07/25/18 14:50 HWJ3721 ICU-M27) Document 07/25/18 15:00 LII0042 (Rec: 07/25/18 15:25 QRZ9360 ICU-C25) Document 07/25/18 16:48 ZCV3899 (Rec: 07/25/18 16:48 IYU3103 ICU-M27) Document 07/25/18 18:03 KFO8704 (Rec: 07/25/18 18:03 NNM1818 ICU-C25) Document 07/25/18 19:00 WBS2941 (Rec: 07/25/18 19:33 TFZ4334 ICU-M27) Document 07/25/18 20:00 BBZ0210 (Rec: 07/25/18 20:03 MAP1425 ICU-M27) Document 07/25/18 21:00 NIS8517 (Rec: 07/25/18 21:32 SVU8684 ICU-C15) Document 07/25/18 22:00 JYS7263 (Rec: 07/25/18 22:04 BPN5556 ICU-C15) Document 07/25/18 23:00 BHG5079 (Rec: 07/25/18 23:18 KIF1440 ICU-C15) Document 07/26/18 00:00 CBN4870 (Rec: 07/26/18 00:03 PSH8058 ICU-M27) Document 07/26/18 01:00 KVE2316 (Rec: 07/26/18 01:05 HII7446 ICU-C15) Document 07/26/18 02:00 KRW7714 (Rec: 07/26/18 02:18 WPT9891 ICU-C15) Document 07/26/18 03:00 RCN3832 (Rec: 07/26/18 03:05 RZV4424 ICU-C15) Document 07/26/18 04:00 OXB6311 (Rec: 07/26/18 05:10 VTC5691 ICU-M27) Document 07/26/18 05:00 LGW6648 (Rec: 07/26/18 05:10 JWS2649 ICU-M27) Document 07/26/18 06:00 ZPI4141 (Rec: 07/26/18 06:09 KVG9086 ICU-C15) Document 07/26/18 07:00 OVU7222 (Rec: 07/26/18 07:24 DED9052 ICU-C12) Document 07/26/18 08:00 EHP4260 (Rec: 07/26/18 09:07 JEH2359 ICU-C12) Document 07/26/18 09:00 OUH8651 (Rec: 07/26/18 09:07 IUG6558 ICU-C12) Document 07/26/18 10:00 JGC5525 (Rec: 07/26/18 11:00 UVI8081 ICU-C12) Document 07/26/18 11:00 VYX6373 (Rec: 07/26/18 11:00 CFF9233 ICU-C12) Document 07/26/18 15:00 VYO0269 (Rec: 07/26/18 15:08 HOC0131 ICU-C12) Document 07/26/18 16:00 KNI1451 (Rec: 07/26/18 16:04 BVK4192 ICU-C12) Document 07/26/18 16:04 YVP3997 (Rec: 07/26/18 16:05 NJP8262 ICU-C12) Document 07/26/18 17:00 DRF6956 (Rec: 07/26/18 17:50 JCP6914 ICU-C12) Document 07/26/18 17:50 LLL5043 (Rec: 07/26/18 17:50 DFW0062 ICU-C12) Document 07/26/18 19:00 GKI9550 (Rec: 07/26/18 20:27 OPI0787 ICU-M27) Document 07/26/18 20:00 CXC4873 (Rec: 07/26/18 20:27 DCL5792 ICU-M27) Document 07/26/18 21:00 MMR3027 (Rec: 07/26/18 22:34 CZT5999 ICU-C25) Document 07/26/18 22:00 GXE6472 (Rec: 07/26/18 22:34 RMN9015 ICU-C25) Document 07/26/18 23:00 XRZ4433 (Rec: 07/26/18 23:11 CSI8329 ICU-C25) Document 07/27/18 00:00 UGW1760 (Rec: 07/27/18 01:21 MKS3556 ICU-C25) Document 07/27/18 01:00 GZZ0676 (Rec: 07/27/18 01:21 HYI3601 ICU-C25) Document 07/27/18 02:00 HQJ9576 (Rec: 07/27/18 06:14 YKQ8885 ICU-C25) Document 07/27/18 03:00 QCW0246 (Rec: 07/27/18 06:14 CQG4954 ICU-C25) Document 07/27/18 04:00 EYM3547 (Rec: 07/27/18 06:14 ORB1328 ICU-C25) Document 07/27/18 05:00 RWQ0122 (Rec: 07/27/18 06:14 RVM3916 ICU-C25) Document 07/27/18 06:00 WTG5543 (Rec: 07/27/18 06:14 NKI1626 ICU-C25) Document 07/27/18 07:00 PPN0758 (Rec: 07/27/18 07:48 DVW0329 ICU-M27) Document 07/27/18 08:10 XEU0323 (Rec: 07/27/18 10:26 CHY9415 ICU-C20) Document 07/27/18 09:00 NPY8355 (Rec: 07/27/18 10:28 WMS3631 ICU-C20) Document 07/27/18 10:00 CZQ3358 (Rec: 07/27/18 12:34 KXO3742 ICU-C12) Document 07/27/18 11:00 NVP5697 (Rec: 07/27/18 12:34 WOE6559 ICU-C12) Document 07/27/18 12:00 ARZ7127 (Rec: 07/27/18 13:27 XSR8387 ICU-C12) Document 07/27/18 13:00 DWD7582 (Rec: 07/27/18 13:29 ULZ4197 ICU-C12) Document 07/27/18 14:00 HWA2218 (Rec: 07/27/18 15:41 JZS2310 ICU-C12) Document 07/27/18 15:00 KGV9074 (Rec: 07/27/18 15:44 YHG4921 ICU-C12) Document 07/27/18 16:14 NTW8185 (Rec: 07/27/18 16:14 GSH2936 ICU-C12) Document 07/27/18 17:00 LRY6315 (Rec: 07/27/18 18:39 BQN8233 ICU-C12) Document 07/27/18 18:00 ONY2793 (Rec: 07/27/18 18:40 QTM1962 ICU-C12) Document 07/27/18 19:00 VNF9270 (Rec: 07/27/18 21:29 SPB6063 ICU-C14) Document 07/27/18 20:00 PWC9998 (Rec: 07/27/18 21:29 PMT6623 ICU-C14) Document 07/27/18 21:00 GKF7870 (Rec: 07/27/18 21:29 FAT5080 ICU-C14) Document 07/27/18 22:00 FDF3972 (Rec: 07/27/18 22:27 YPX9291 ICU-C14) Document 07/27/18 23:00 VPC9303 (Rec: 07/28/18 05:25 ZLA8346 ICU-C14) Document 07/28/18 00:00 IDG7210 (Rec: 07/28/18 05:25 HBR5826 ICU-C14) Document 07/28/18 01:00 CBV3297 (Rec: 07/28/18 05:25 TRX3516 ICU-C14) Document 07/28/18 02:00 MSW8909 (Rec: 07/28/18 05:25 OZA2001 ICU-C14) Document 07/28/18 03:00 GOW8549 (Rec: 07/28/18 05:25 RNO5354 ICU-C14) Document 07/28/18 04:00 GWZ7911 (Rec: 07/28/18 05:25 MQB9568 ICU-C14) Document 07/28/18 05:00 RZC0582 (Rec: 07/28/18 05:25 XRS1022 ICU-C14) Document 07/28/18 06:00 WWP2526 (Rec: 07/28/18 07:24 SLZ0009 ICU-C14) Document 07/28/18 07:00 CIM6951 (Rec: 07/28/18 07:24 BOF3931 ICU-C14) Document 07/28/18 09:00 EOB2202 (Rec: 07/28/18 11:12 VYW2196 ICU-M27) Document 07/28/18 10:00 OAE6830 (Rec: 07/28/18 11:13 CGP8204 ICU-M27) Document 07/28/18 11:00 ANO0573 (Rec: 07/28/18 11:13 XJK3418 ICU-M27) Document 07/28/18 12:00 THB2999 (Rec: 07/28/18 16:15 GYN0839 ICU-M27) Document 07/28/18 13:00 HPE8319 (Rec: 07/28/18 16:15 PQF2070 ICU-M27) Document 07/28/18 14:00 GSB8354 (Rec: 07/28/18 16:15 HSX4301 ICU-M27) Document 07/28/18 15:00 EPO4479 (Rec: 07/28/18 16:15 QGC6427 ICU-M27) Document 07/28/18 16:00 UCU8602 (Rec: 07/28/18 17:42 PSB3284 ICU-M27) Document 07/28/18 17:00 ZRC0052 (Rec: 07/28/18 17:42 RSX5617 ICU-M27) Document 07/28/18 18:00 AUJ3224 (Rec: 07/28/18 18:01 IPZ6256 ICU-M27) Document 07/28/18 19:00 HBN9750 (Rec: 07/28/18 19:34 SPG8841 ICU-C12) Document 07/28/18 20:00 AEX4847 (Rec: 07/28/18 20:35 ENS0168 ICU-C12) Document 07/28/18 21:00 AZI6070 (Rec: 07/28/18 21:27 IUS7905 ICU-C12) Document 07/28/18 22:00 NQL7266 (Rec: 07/28/18 22:21 RQE1344 ICU-C12) Document 07/28/18 23:00 QAG6745 (Rec: 07/28/18 23:19 WHV9305 ICU-C12) Document 07/29/18 00:00 ARH1167 (Rec: 07/29/18 00:24 WYD1352 ICU-C12) Document 07/29/18 01:00 UUL7536 (Rec: 07/29/18 01:20 WOI6938 ICU-C12) Document 07/29/18 02:00 OWZ2377 (Rec: 07/29/18 02:46 DSA4756 ICU-C12) Document 07/29/18 03:00 LJM8864 (Rec: 07/29/18 03:16 YLW6320 ICU-C12) Document 07/29/18 04:00 PUD1513 (Rec: 07/29/18 04:07 VNP7064 ICU-C12) Document 07/29/18 05:00 CWP3574 (Rec: 07/29/18 05:44 NKB7025 ICU-C12) Document 07/29/18 06:00 LCK7933 (Rec: 07/29/18 06:15 AML4286 ICU-C12) Document 07/29/18 06:16 OWI5134 (Rec: 07/29/18 06:17 RVJ9610 ICU-C12) Document 07/29/18 06:17 CBT1729 (Rec: 07/29/18 06:17 BXB2965 ICU-C12) Document 07/29/18 07:00 UUQ7380 (Rec: 07/29/18 08:17 PUE1198 ICU-M27) Document 07/29/18 08:00 ZZW7570 (Rec: 07/29/18 08:17 AXP4461 ICU-M27) Document 07/29/18 09:00 YLC3185 (Rec: 07/29/18 09:11 ZKC3379 ICU-M27) Document 07/29/18 10:00 YSY4895 (Rec: 07/29/18 11:08 OPR0958 ICU-M27) Document 07/29/18 11:00 DMB9835 (Rec: 07/29/18 11:08 JWO6410 ICU-M27) Document 07/29/18 12:00 ZNG0540 (Rec: 07/29/18 12:46 FUX1535 ICU-M27) Document 07/29/18 13:00 ADN7050 (Rec: 07/29/18 13:26 VEW2907 ICU-M27) Document 07/29/18 14:00 WRJ5162 (Rec: 07/29/18 14:16 XMZ2815 ICU-M27) Document 07/29/18 15:00 ACX5320 (Rec: 07/29/18 15:40 DVF2250 ICU-M27) Document 07/29/18 16:00 ZYE4070 (Rec: 07/29/18 16:42 YOM6865 ICU-M27) Document 07/29/18 17:00 HYI7160 (Rec: 07/29/18 17:42 DDJ2475 ICU-M27) Document 07/29/18 18:00 IKJ8186 (Rec: 07/29/18 18:45 ELV0330 ICU-C15) Document 07/29/18 19:00 GAF0206 (Rec: 07/29/18 21:09 CSP7974 ICU-C12) Document 07/29/18 20:00 PPZ4179 (Rec: 07/29/18 21:09 OYL9003 ICU-C12) Document 07/29/18 21:00 KQX7672 (Rec: 07/29/18 21:09 WUT1895 ICU-C12) Document 07/29/18 22:00 FYA7572 (Rec: 07/29/18 22:21 ZBL1989 ICU-C12) Document 07/29/18 23:00 ZPS6159 (Rec: 07/30/18 00:45 QVV7224 ICU-C12) Document 07/30/18 00:00 AFE4849 (Rec: 07/30/18 00:45 VLU1324 ICU-C12) Document 07/30/18 01:00 NKN2814 (Rec: 07/30/18 04:53 GQM1194 ICU-C12) Document 07/30/18 02:00 CMQ3059 (Rec: 07/30/18 04:53 VUD3905 ICU-C12) Document 07/30/18 03:00 THP5126 (Rec: 07/30/18 04:53 RCB2046 ICU-C12) Document 07/30/18 04:00 CDR9182 (Rec: 07/30/18 04:53 NCV8023 ICU-C12) Document 07/30/18 04:53 CTH8645 (Rec: 07/30/18 04:53 ANF2736 ICU-C12) Document 07/30/18 04:54 KMX1504 (Rec: 07/30/18 04:54 JWO5896 ICU-M22) Document 07/30/18 05:22 EFK4265 (Rec: 07/30/18 05:23 XNM7871 ICU-C12) Document 07/30/18 07:00 UDV6190 (Rec: 07/30/18 08:51 RYX4296 ICU-C25) Document 07/30/18 08:00 DAZ8044 (Rec: 07/30/18 08:51 ZJM3434 ICU-C25) Document 07/30/18 09:00 VXE1634 (Rec: 07/30/18 10:19 BVG7280 ICU-C25) Document 07/30/18 10:00 DVW0159 (Rec: 07/30/18 10:20 POI2525 ICU-C25) Document 07/30/18 12:00 OKZ4255 (Rec: 07/30/18 14:50 DRB4860 ICU-C25) Document 07/30/18 13:00 ROV7374 (Rec: 07/30/18 14:51 ZEF3787 ICU-C25) Document 07/30/18 15:00 JAL7648 (Rec: 07/30/18 15:07 UXY9113 ICU-C25) Document 07/30/18 16:00 NRX6088 (Rec: 07/30/18 19:13 PNW7517 ICU-C06) Document 07/30/18 17:00 VUG2455 (Rec: 07/30/18 19:13 XIG3424 ICU-C06) Document 07/30/18 19:00 CCQ9387 (Rec: 07/30/18 22:52 JPS6585 ICU-C07) Document 07/30/18 23:00 SNW9166 (Rec: 07/30/18 23:28 COT0190 ICU-C07) Document 07/30/18 23:28 NRG8195 (Rec: 07/30/18 23:34 KSF8009 ICU-C07) Document 07/31/18 01:00 MZF5785 (Rec: 07/31/18 02:00 ALU8060 ICU-C07) Document 07/31/18 03:48 FWX0203 (Rec: 07/31/18 03:59 RHK5844 ICU-C07) Document 07/31/18 05:21 SZN0683 (Rec: 07/31/18 05:23 NYT2316 ICU-M27) Document 07/31/18 07:00 QNA2826 (Rec: 07/31/18 07:57 XCC1231 ICU-C25) Document 07/31/18 07:57 LDJ9563 (Rec: 07/31/18 07:57 JHJ5173 ICU-C25) Document 07/31/18 09:38 MKW9318 (Rec: 07/31/18 09:38 DAR4840 ICU-M27) Document 07/31/18 10:00 PZM5796 (Rec: 07/31/18 11:46 HLQ8021 ICU-C25) Document 07/31/18 11:00 NIL9134 (Rec: 07/31/18 11:46 WOT3054 ICU-C25) Document 07/31/18 12:00 HGI5621 (Rec: 07/31/18 13:45 NFZ9650 ICU-C25) Document 07/31/18 13:00 XBR5322 (Rec: 07/31/18 13:45 LBW4058 ICU-C25) Document 07/31/18 13:45 XYT1144 (Rec: 07/31/18 13:45 YPS8443 ICU-C25) Document 07/31/18 15:36 NZK9527 (Rec: 07/31/18 15:36 BPK8558 ICU-C25) Document 07/31/18 17:51 PHG8873 (Rec: 07/31/18 17:51 LBN9498 ICU-M27) Document 07/31/18 19:00 AUI0186 (Rec: 07/31/18 22:29 KOU5810 ICU-M27) Document 07/31/18 20:00 CSY0306 (Rec: 07/31/18 22:29 WEU7911 ICU-M27) Document 07/31/18 21:00 WNY2099 (Rec: 07/31/18 22:29 YQI9388 ICU-M27) Document 07/31/18 22:00 FCP9315 (Rec: 07/31/18 22:29 OKX1181 ICU-M27) Document 07/31/18 23:00 BLB1347 (Rec: 07/31/18 23:29 TYK8613 ICU-C14) Document 08/01/18 00:00 UFW8554 (Rec: 08/01/18 00:16 VIG2228 ICU-M27) Document 08/01/18 01:00 BHH3480 (Rec: 08/01/18 01:45 TJU5082 ICU-C14) Document 08/01/18 02:00 CKK7608 (Rec: 08/01/18 02:37 TEM8057 ICU-C14) Document 08/01/18 03:00 LPG6351 (Rec: 08/01/18 03:15 MRD4065 ICU-M27) Document 08/01/18 04:00 NPP4986 (Rec: 08/01/18 04:15 YAT0235 ICU-C14) Document 08/01/18 05:00 VPC6314 (Rec: 08/01/18 05:12 HVE0774 ICU-C14) Document 08/01/18 06:00 NJA9092 (Rec: 08/01/18 06:43 PYW1676 ICU-C14) Document 08/01/18 07:42 EON6790 (Rec: 08/01/18 07:42 DCJ5383 ICU-C12) Document 08/01/18 08:00 LLC4797 (Rec: 08/01/18 09:08 NDU8451 ICU-M27) Document 08/01/18 09:00 YGZ9025 (Rec: 08/01/18 09:08 NXG8644 ICU-M27) Document 08/01/18 10:00 GMB9643 (Rec: 08/01/18 11:28 XTJ4932 ICU-M27) Document 08/01/18 11:00 KRM8254 (Rec: 08/01/18 11:28 BKA6258 ICU-M27) Document 08/01/18 13:24 VCP9546 (Rec: 08/01/18 13:24 QEH9263 ICU-M27) Document 08/01/18 14:00 OKG3866 (Rec: 08/01/18 14:58 ACL1129 ICU-M27) Document 08/01/18 14:58 AJQ6925 (Rec: 08/01/18 14:58 HIV0871 ICU-M27) Document 08/01/18 15:40 EFU6537 (Rec: 08/01/18 15:40 CSR2842 ICU-C12) Document 08/01/18 17:00 FSC4233 (Rec: 08/01/18 18:23 WSD6630 ICU-C12) Document 08/01/18 18:00 FVT5751 (Rec: 08/01/18 18:23 QEM6859 ICU-C12) Document 08/01/18 19:00 KJW1794 (Rec: 08/01/18 20:14 IBI6050 ICU-M27) Document 08/01/18 20:00 AVK6742 (Rec: 08/01/18 20:14 ZRI9791 ICU-M27) Document 08/01/18 21:00 LQK1700 (Rec: 08/01/18 23:28 FGN1493 ICU-C12) Document 08/01/18 22:00 FJD8057 (Rec: 08/01/18 23:28 PTY5914 ICU-C12) Document 08/01/18 23:40 GYB9283 (Rec: 08/01/18 23:43 YLV1062 ICU-M27) Document 08/02/18 00:00 TGT3761 (Rec: 08/02/18 01:30 HYG6035 ICU-C12) Document 08/02/18 01:00 LOF4363 (Rec: 08/02/18 01:30 HUK8143 ICU-C12) Document 08/02/18 02:00 UVE5618 (Rec: 08/02/18 02:03 BKS3666 ICU-M27) Document 08/02/18 03:00 CGL8961 (Rec: 08/02/18 03:40 JYM6318 ICU-M27) Document 08/02/18 04:25 KKX0631 (Rec: 08/02/18 04:25 KUT6571 ICU-M27) Document 08/02/18 05:00 FFL8804 (Rec: 08/02/18 05:52 ZTQ7034 ICU-M27) Document 08/02/18 05:52 ZVM4948 (Rec: 08/02/18 05:53 ZWZ8917 ICU-M27) Document 08/02/18 08:38 SEW8417 (Rec: 08/02/18 08:38 JAP8650 ICU-C12) Document 08/02/18 09:29 NWR4170 (Rec: 08/02/18 09:29 VPT4074 ICU-M27) Document 08/02/18 11:11 DMB7780 (Rec: 08/02/18 11:11 EBZ9297 ICU-C12) Document 08/02/18 12:24 LGY8462 (Rec: 08/02/18 12:24 VTU4814 ICU-M27) Document 08/02/18 13:21 MMY4104 (Rec: 08/02/18 13:21 AKI9173 ICU-C12) Document 08/02/18 13:56 PKP4516 (Rec: 08/02/18 13:56 BRA6739 ICU-M27) Document 08/02/18 15:00 EVT3030 (Rec: 08/02/18 15:01 CYB3308 ICU-C12) Document 08/02/18 15:14 SJU5938 (Rec: 08/02/18 15:15 HSE4245 ICU-C12) Document 08/02/18 15:46 PKD7773 (Rec: 08/02/18 15:54 QEV1547 ICU-M27) Document 08/02/18 16:09 ALI9468 (Rec: 08/02/18 16:10 YYV7908 ICU-M27) Document 08/02/18 17:06 WOG1787 (Rec: 08/02/18 17:06 JJY2304 ICU-C12) Document 08/02/18 18:01 WNR4699 (Rec: 08/02/18 18:01 JJT5989 ICU-C12) Document 08/02/18 19:00 WGB9231 (Rec: 08/02/18 19:15 BUV2778 ICU-C12) Document 08/02/18 20:00 KZC4752 (Rec: 08/02/18 22:06 PRX7412 ICU-M27) Document 08/02/18 21:00 WFL2856 (Rec: 08/02/18 22:06 EGL8571 ICU-M27) Document 08/02/18 22:00 KVZ8935 (Rec: 08/02/18 22:06 HOB3363 ICU-M27) Document 08/02/18 23:00 DKD3544 (Rec: 08/03/18 00:33 VRB6970 ICU-C12) Document 08/03/18 00:00 UOV3243 (Rec: 08/03/18 00:41 KBB7562 ICU-M27) Document 08/03/18 01:00 ABZ9041 (Rec: 08/03/18 01:29 BDR3176 ICU-C12) Document 08/03/18 02:00 ZJZ9830 (Rec: 08/03/18 03:57 FIM5428 ICU-C12) Document 08/03/18 03:00 VIO0719 (Rec: 08/03/18 03:57 QWM0599 ICU-C12) Document 08/03/18 04:00 NDA3762 (Rec: 08/03/18 04:20 FGP8955 ICU-M27) Document 08/03/18 05:00 YWT2488 (Rec: 08/03/18 05:22 QQS6306 ICU-M27) Document 08/03/18 05:35 SED9661 (Rec: 08/03/18 05:36 WMA9613 ICU-M27) Document 08/03/18 07:35 CMI6133 (Rec: 08/03/18 07:36 NWG4469 ICU-C12) Document 08/03/18 08:00 SKC8982 (Rec: 08/03/18 08:18 NDU8179 ICU-M27) Document 08/03/18 08:47 XOL8313 (Rec: 08/03/18 08:48 DOZ4608 ICU-M27) Document 08/03/18 09:46 PEM5315 (Rec: 08/03/18 09:46 LZG7550 ICU-M27) Document 08/03/18 10:40 HQC4434 (Rec: 08/03/18 10:40 CRP8608 ICU-C12) Document 08/03/18 11:45 OSX1435 (Rec: 08/03/18 11:45 OOP2235 ICU-M27) Document 08/03/18 12:26 YLG1666 (Rec: 08/03/18 12:26 KPO1755 ICU-M27) Document 08/03/18 12:59 UYO6797 (Rec: 08/03/18 12:59 LIU2045 ICU-C12) Document 08/03/18 13:46 AAK3164 (Rec: 08/03/18 13:46 NGF0228 ICU-M27) Document 08/03/18 14:46 UAA8837 (Rec: 08/03/18 14:47 BZL6341 ICU-M27) Document 08/03/18 15:49 AOK3749 (Rec: 08/03/18 15:50 HRI3269 ICU-M27) Document 08/03/18 16:52 AWW5837 (Rec: 08/03/18 16:52 ZSG7113 ICU-M27) Document 08/03/18 17:58 SYN7847 (Rec: 08/03/18 17:58 HET7767 ICU-M27) Document 08/03/18 19:00 SZS9681 (Rec: 08/03/18 20:44 SPM4055 ICU-M27) Document 08/03/18 20:00 TIS8279 (Rec: 08/03/18 20:44 OKM7788 ICU-M27) Document 08/03/18 21:00 DLZ6974 (Rec: 08/03/18 21:48 LEK1972 ICU-M27) Document 08/03/18 21:47 ZNV6635 (Rec: 08/03/18 21:48 ALD7830 ICU-M27) Document 08/03/18 23:31 GGM7441 (Rec: 08/03/18 23:32 OAR7449 ICU-M27) Document 08/04/18 03:00 STW5308 (Rec: 08/04/18 03:07 KSX2727 ICU-C25) Document 08/04/18 04:00 TUX8628 (Rec: 08/04/18 05:23 ALT2846 ICU-M27) Document 08/04/18 05:00 LSE9653 (Rec: 08/04/18 05:23 FSH0536 ICU-M27) Document 08/04/18 06:00 PLQ9633 (Rec: 08/04/18 06:17 MOM7925 ICU-C25) Document 08/04/18 07:00 IHN5348 (Rec: 08/04/18 08:36 EGN5441 ICU-C12) Document 08/04/18 10:00 LFA1226 (Rec: 08/04/18 13:41 NDW8545 ICU-C12) Document 08/04/18 11:00 SYM4654 (Rec: 08/04/18 13:42 XMC9009 ICU-C12) Document 08/04/18 13:00 KRW0654 (Rec: 08/04/18 13:42 MLS3647 ICU-C12) Document 08/04/18 16:00 XJF4019 (Rec: 08/04/18 19:01 ZJQ7097 ICU-C12) Document 08/04/18 18:00 NTG0045 (Rec: 08/04/18 19:01 WIQ4896 ICU-C12) Document 08/04/18 20:00 XVB8470 (Rec: 08/04/18 22:34 INI5298 ICU-C25) Document 08/05/18 00:00 EPN5924 (Rec: 08/05/18 00:04 ZVZ8625 ICU-C25) Document 08/05/18 03:00 ENT4415 (Rec: 08/05/18 03:50 BEC9190 ICU-C25) Document 08/05/18 03:59 BPJ7591 (Rec: 08/05/18 04:08 DGN5671 ICU-C25) Document 08/05/18 05:00 OKF0464 (Rec: 08/05/18 05:38 ZDX2110 ICU-C25) Document 08/05/18 05:55 DKQ2765 (Rec: 08/05/18 06:36 KYF9773 ICU-C25) Document 08/05/18 08:30 YBB8611 (Rec: 08/05/18 09:35 UBM6568 ICU-C10) Document 08/05/18 10:00 WQE0291 (Rec: 08/05/18 11:22 SJY0198 ICU-C10) Document 08/05/18 11:00 FIA7570 (Rec: 08/05/18 11:22 ONO6421 ICU-C10) Document 08/05/18 12:00 PVK9235 (Rec: 08/05/18 15:34 TKT2892 ICU-C10) Document 08/05/18 13:00 KUT5850 (Rec: 08/05/18 15:34 FQM4132 ICU-C10) Document 08/05/18 14:00 RVG4134 (Rec: 08/05/18 15:34 UTU3795 ICU-C10) Document 08/05/18 16:00 VYV5692 (Rec: 08/05/18 18:25 OIC8614 ICU-C10) Document 08/05/18 17:00 AWW3538 (Rec: 08/05/18 18:25 RFH5368 ICU-C10) Document 08/05/18 18:00 TFF9078 (Rec: 08/05/18 18:25 LCX6622 ICU-C10) Document 08/05/18 19:00 DWP7037 (Rec: 08/05/18 19:49 IXF9769 ICU-M27) Document 08/05/18 20:00 VCG7573 (Rec: 08/05/18 20:51 XSE5157 ICU-M27) Document 08/05/18 21:00 XBL7845 (Rec: 08/05/18 21:16 XUN0993 ICU-M27) Document 08/05/18 22:00 OBK7241 (Rec: 08/05/18 22:11 UBD1146 ICU-M27) Document 08/05/18 23:00 MNS1694 (Rec: 08/05/18 23:16 UWB6102 ICU-M27) Document 08/06/18 00:00 SEX9361 (Rec: 08/06/18 00:35 AST4755 ICU-M27) Document 08/06/18 01:00 JHB8453 (Rec: 08/06/18 01:02 CCL0867 ICU-M27) Document 08/06/18 02:00 AGO1384 (Rec: 08/06/18 02:22 RWR2681 ICU-M27) Document 08/06/18 03:00 UZK2951 (Rec: 08/06/18 03:04 PVO2722 ICU-M27) Document 08/06/18 04:00 UPA4273 (Rec: 08/06/18 04:06 WSO9450 ICU-M27) Document 08/06/18 05:00 FFL1580 (Rec: 08/06/18 06:16 UYU1188 ICU-M30) Document 08/06/18 06:00 VWE2994 (Rec: 08/06/18 06:17 CHN9906 ICU-M30) Document 08/06/18 08:00 IXC4677 (Rec: 08/06/18 11:13 GOR1044 ICU-C15) Document 08/06/18 09:00 WHA8721 (Rec: 08/06/18 11:13 XTZ0384 ICU-C15) Document 08/06/18 10:00 ICZ6121 (Rec: 08/06/18 11:13 KDN9870 ICU-C15) Document 08/06/18 11:00 WYD8553 (Rec: 08/06/18 11:13 NZI2439 ICU-C15) Document 08/06/18 12:00 MLI0964 (Rec: 08/06/18 13:11 WPZ9679 ICU-C15) Document 08/06/18 12:15 PNE0912 (Rec: 08/06/18 12:15 WBU9552 ICU-C12) Document 08/06/18 13:00 YZX6216 (Rec: 08/06/18 13:01 NUV0577 ICU-M27) Document 08/06/18 14:00 AOT6148 (Rec: 08/06/18 14:05 CKP2498 ICU-C15) Document 08/06/18 14:52 ITF5939 (Rec: 08/06/18 14:52 HXS5258 ICU-C14) Document 08/06/18 16:00 POS1353 (Rec: 08/06/18 17:21 OUI7717 ICU-C15) Document 08/06/18 17:00 EGW3167 (Rec: 08/06/18 17:21 HTA2694 ICU-C15) Document 08/06/18 18:00 SAC2618 (Rec: 08/06/18 19:23 QJV5798 ICU-C15) Document 08/06/18 19:00 TNE8854 (Rec: 08/06/18 20:32 HPB3236 ICU-M27) Document 08/06/18 20:00 MGN0099 (Rec: 08/06/18 20:32 DOK2861 ICU-M27) Document 08/06/18 21:00 KCZ4186 (Rec: 08/06/18 22:24 VCV7321 ICU-M27) Document 08/06/18 22:00 AIW0322 (Rec: 08/06/18 22:24 HCF5555 ICU-M27) Document 08/06/18 23:00 WYX9553 (Rec: 08/07/18 02:38 FXK0245 ICU-L03) Document 08/07/18 00:00 UZT3443 (Rec: 08/07/18 02:38 CYF5257 ICU-L03) Document 08/07/18 01:00 IGF3544 (Rec: 08/07/18 02:38 YUP9945 ICU-L03) Document 08/07/18 02:00 PUP6855 (Rec: 08/07/18 02:38 PIQ6446 ICU-L03) Document 08/07/18 03:00 TYO5581 (Rec: 08/07/18 03:05 TNF7713 ICU-L03) Document 08/07/18 04:00 JES9124 (Rec: 08/07/18 07:43 YVP8457 ICU-L03) Document 08/07/18 05:00 UQR6193 (Rec: 08/07/18 07:43 OLY4845 ICU-L03) Document 08/07/18 06:00 APW6366 (Rec: 08/07/18 07:43 UVE1450 ICU-L03) Document 08/07/18 07:00 EVB1817 (Rec: 08/07/18 07:43 EPK3552 ICU-L03) Document 08/07/18 08:00 CPY5439 (Rec: 08/07/18 08:23 VQO7044 ICU-C15) Document 08/07/18 09:00 XCA3652 (Rec: 08/07/18 09:12 PKW9526 ICU-M27) Document 08/07/18 09:59 CFC3818 (Rec: 08/07/18 09:59 LQB2822 ICU-M27) Document 08/07/18 11:00 WFC2756 (Rec: 08/07/18 11:15 MPX9487 ICU-M27) Document 08/07/18 12:00 JHS3501 (Rec: 08/07/18 12:03 WZY1027 ICU-M27) Document 08/07/18 13:00 IEA2269 (Rec: 08/07/18 13:15 XUV6238 ICU-M27) Document 08/07/18 14:00 RHF0876 (Rec: 08/07/18 15:12 PGE6628 ICU-M27) Document 08/07/18 15:00 CRO0249 (Rec: 08/07/18 15:16 SCM8894 ICU-M27) Document 08/07/18 15:20 VMS5735 (Rec: 08/07/18 15:31 LRP1222 ICU-C15) Document 08/07/18 17:00 LOG9619 (Rec: 08/07/18 17:33 CDN3460 ICU-M27) Document 08/07/18 19:51 RGS2853 (Rec: 08/07/18 19:51 RKQ5793 ICU-M27) Document 08/07/18 21:00 EIR5885 (Rec: 08/07/18 21:22 YEJ0576 ICU-C25) Document 08/07/18 22:00 AZD4456 (Rec: 08/08/18 00:33 XBM2043 ICU-C15) Document 08/07/18 23:00 CJN4880 (Rec: 08/08/18 00:33 FOX2285 ICU-C15) Document 08/08/18 00:00 JPA5985 (Rec: 08/08/18 00:33 NYX1400 ICU-C15) Document 08/08/18 01:00 YQL8805 (Rec: 08/08/18 04:19 SSU0373 ICU-C15) Document 08/08/18 02:00 DRC8996 (Rec: 08/08/18 04:19 WZH3921 ICU-C15) Document 08/08/18 03:00 IVV7753 (Rec: 08/08/18 05:12 SRC8478 ICU-M27) Document 08/08/18 04:00 EUH2916 (Rec: 08/08/18 05:12 YQA1296 ICU-M27) Document 08/08/18 05:00 LUN0008 (Rec: 08/08/18 05:12 GDO6396 ICU-M27) Document 08/08/18 06:00 FMF4385 (Rec: 08/08/18 06:38 GPB0780 ICU-M27) Document 08/08/18 06:44 AYA3172 (Rec: 08/08/18 06:44 VJM8741 ICU-C15) Document 08/08/18 07:00 OED5344 (Rec: 08/08/18 08:59 AKX3248 [place] [id number] ) Document 08/08/18 08:00 VQL6073 (Rec: 08/08/18 08:59 ISZ8445 [facility]-M03 ) Labs: Laboratory Results - last 24 hr 08/07/18 08/07/18 08/07/18 05:45 09:30 12:26 INR (Anticoag Therapy) 1.23 H Sodium 145 Potassium 3.5 Chloride 113 H Carbon Dioxide 29 Anion Gap 3 BUN 21 Creatinine 0.34 L Est GFR ( Amer) 224.7 Est GFR (Non-Af Amer) 185.7 BUN/Creatinine Ratio 61.8 H Glucose 128 H POC Glucose (mg/dL) 108 H Calcium 8.0 L Phosphorus 3.8 Magnesium 1.8 L 08/07/18 08/08/18 08/08/18 18:06 01:42 06:37 INR (Anticoag Therapy) Sodium Potassium Chloride Carbon Dioxide Anion Gap BUN Creatinine Est GFR ( Amer) Est GFR (Non-Af Amer) BUN/Creatinine Ratio Glucose POC Glucose (mg/dL) 97 80 85 Calcium Phosphorus Magnesium Studies: CXR 08/07: persistent opacities bilaterally with improvement in the bases R>L compared to 08/04 CXR 08/04: Increased bilateral alveolar opacities compared to prior study Nutrition: Hold TF and NPO due to recent PEG Tube placement Impression: Acute encephalopathy Critical illness neuromyopathy Prolonged mechanical ventilation Hypoxemic respiratory failure Pulmonary edema, anasarca 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 Plan to Trach collar later today if tolerates PS <8. Will rest on PS for the night. - s/p abx tx. Afebrile (Tmax 100.2-->99.7), resp status improving to stable, and no leukocytosis- hold new abx. Will attribute new RCX Staph aureus and KPNA as possible colonizer. -responsive to lasix, continue with 20 mg daily. Monitory I/O # Diarrhea # CDAD - c/w oral vanc and IV flagyl for total of 14 days - fiber (guar gum, wheat dextrin, inulin, fructooligosaccharides)for TF # s/p Peg tube placement 08/07 # Malnutrition # Electrolyte abnormalities- hypokalemia, hypomagnesemia low enteral intake +/- diuretic induced - will start TF as per clearance from GI - replacing KCL and MgSO4+ # HTN BP optimized on atenolol, lisinopril (held due to NPO status) DVT PPX: Enoxaparin Prognosis: Guarded Critical care issues: acute respiratory failure due to hypoxemia, mechanical ventilation, precedex Critical Care Time: 45 mins
[2018-08-08 10:15] LABS: ABS Basophils 0 10^3/ul (0-0.2); ABS Eosinophils 0.1 10^3/ul (0-0.6); ABS Monocytes 1.1 10^3/ul (0-0.8); ABS Neutrophils 7.3 10^3/ul (1.5-7.7); ABS Nucleated RBC 0 10^3/ul; Eosinophil % 0.6 %; Hematocrit 27 % (35-47); Lymphocyte % 10.1 %; Mean Corpuscular HGB Conc 33 g/dl (31-36); Mean Corpuscular Hemoglobin 32 pg (27-31); Mean Corpuscular Volume 97 fL (80-97); Mean Platelet Volume 9.3 fL (7.4-10.4); Nucleated Red Blood Cells % 0; Platelet Count 402 10^3/ul (150-450); Red Blood Count 2.83 10^6/ul (4.00-5.40); Red Cell Distribution Width 16 % (10.5-15); White Blood Count 9.5 10^3/ul (3.5-10.8)
[2018-08-08] MEDS: Enoxaparin(*) 80 MG/0.8 ML SYR SUBCUT SCH ×2 (10:54→22:20)
[2018-08-08] MEDS: Furosemide IV* 10 MG/ML 2 ML VIAL (20 MG) IV SCH (10:54)
[2018-08-08] MEDS: Atenolol TAB* 25 MG PO SCH ×2 (11:20→19:49)
[2018-08-08] MEDS: Citalopram TAB* 20 MG PO SCH (11:20)
[2018-08-08] MEDS: amLODIPine TAB* 5 MG PO SCH (11:20)
[2018-08-08] MEDS: Lactobacillus Acidophilus* 1 TAB PO SCH (11:21)
[2018-08-08] MEDS: Potassium Chloride LIQUID* 20 MEQ PACKET PO SCH (11:21)
[2018-08-08] MEDS: VANCOMYCIN G TUBE SCH ×4 (11:21→20:49)
[2018-08-08] MEDS: Lisinopril TAB* 10 MG PO SCH (11:21)
[2018-08-08] MEDS ORDERED: Magnesium Sulfate 1 GM IV* 1 GM/100 ML BAG IV ONE (13:51)
[2018-08-08] MEDS: KCL 20 MEQ/100 ML IVPREMIX* 20 MEQ/100 ML BAG IV SCH ×2 (14:26→16:57)
[2018-08-08] MEDS: Vancomycin CAP* 125 MG CAP SCH (15:28)
[2018-08-09] MEDS: Insulin LISPRO* 1 UNITS UNIT SUBCUT SCH ×5 (00:18→23:27)
[2018-08-09] MEDS: Dexmedetomidine* 400 MCG in NS 0.9% 100 ML* 96 ML IVPB SCH ×2 (00:36→13:19)
[2018-08-09] MEDS: Nystatin CREAM* 15 GM TUBE TOPICAL SCH ×4 (01:24→20:17)
[2018-08-09] MEDS: Bacitracin OINTMENT* 0.5% 0.5 oz TUBE TOPICAL SCH ×3 (01:24→20:17)
[2018-08-09] MEDS: Artificial Tears* 15 ML BTL BOTH EYES PRN (02:38)
[2018-08-09] MEDS: metroNIDAZOLE IV 500 MG/100ML* 500 MG/100 ML BAG IVPB SCH ×3 (05:01→20:09)
[2018-08-09] MEDS: Levothyroxine TAB* 150 MCG TAB NG TUBE SCH (05:02)
[2018-08-09] MEDS: amLODIPine TAB* 5 MG PO SCH (09:39)
[2018-08-09] MEDS: Citalopram TAB* 20 MG PO SCH (09:39)
[2018-08-09] MEDS: Atenolol TAB* 25 MG PO SCH ×2 (09:39→20:17)
[2018-08-09] MEDS: Potassium Chloride LIQUID* 20 MEQ PACKET PO SCH (09:40)
[2018-08-09] MEDS: VANCOMYCIN G TUBE SCH ×4 (09:40→20:16)
[2018-08-09] MEDS: Lactobacillus Acidophilus* 1 TAB PO SCH (09:40)
[2018-08-09] MEDS: Lisinopril TAB* 10 MG PO SCH (09:40)
[2018-08-09] MEDS: Enoxaparin(*) 80 MG/0.8 ML SYR SUBCUT SCH ×2 (10:56→20:18)
[2018-08-09] MEDS: Furosemide IV* 10 MG/ML 2 ML VIAL (20 MG) IV SCH (10:58)
--- NOTE | 2018-08-09 12:31 | PN ---
Date of Service: 08/09/18 Critical Care Services: 78 F with hx/o Thyroid Ca s/p resection and XRT, chronic pain, AF, s/p PPM for arrhythmias, with prolonged mechanical ventilation Current complains:communicates with facial gestures and head nodding. She complains of generalized pain- abdomen, head, intermittent chest pain but tolerable. Overnight issues: Tolerated TM during the day 08/08. Stayed on PS 15 overnight. Had PEG placed 08/07 Vital Signs: Temp Pulse Resp BP SpO2 FiO2 99.3 F 70 24 170/66 98 45 08/09/18 11:00 08/09/18 11:00 08/09/18 11:00 08/09/18 11:00 08/09/18 11:00 08/09 07:52 Physical Exam: Gen: NAD. HEENT: Trach stoma intact with tracheostomy in place. NCAT, PERRL Lungs: clear to auscultation bilaterally Cardiac: S1S2, RRR Abdomen: SNTND, +BS Extremities: 2-3+ edema Neuro:Non focal Fluid Balance (Past 24 Hours): I= O= Net Intake & Output 08/07/18 08/08/18 08/09/18 08/10/18 06:59 06:59 06:59 06:59 Intake Total 3884.5 975 386 Output Total 4430 3135 1905 530 Balance -545.5 -2160 -1519 -530 Weight 192 lb 3.889 oz 194 lb 0.108 oz 195 lb Intake: IV Fluids 568 537 276 ABX - FLAGYL 121 Antibiotics 211 NS w meds 537 194 155 Normal Saline 31 132 IVPB 363 110 ABX - FLAGYL 110 NS w meds 363 Medicated IV 162.5 46 CC - Dexmedetomidine/ 91.5 46 Precedex lasix 71 Oral 0 Tube Feeding 1716 230 Tube Feeding Flush Amount 1075 Albumin 162 NG Tube Irrigate Amount 0 Output: Urine 125 Walsh 4305 2335 1705 530 Liquid Stool 800 200 Tube Feeding Residual 0 Amount Wasted ADLs: Meal Record Start: 07/17/18 17: 39 Freq: Status: Active Protocol: Created 07/17/18 17:39 System (Rec: 07/17/18 17:39 System ICU-C20) Document 07/17/18 18:00 BCK1835 (Rec: 07/17/18 18:09 NFR1417 ICU-C12) Document 07/18/18 09:00 YBM5684 (Rec: 07/18/18 10:08 BMC5334 ICU-C15) Document 07/18/18 13:00 EDW4061 (Rec: 07/18/18 13:24 WON7133 ICU-C15) Document 07/18/18 18:00 DCB4976 (Rec: 07/18/18 18:15 RAT6125 ICU-C15) Document 07/19/18 09:00 JFQ0127 (Rec: 07/19/18 09:05 LHZ2804 ICU-M27) Document 07/19/18 12:57 LHW8611 (Rec: 07/19/18 12:58 HBA4456 ICU-L03) Document 07/19/18 18:00 QEK4877 (Rec: 07/19/18 18:32 HJX4232 ICU-C15) Document 07/20/18 09:00 JXL1985 (Rec: 07/20/18 09:21 CMJ1100 ICU-C15) Document 07/20/18 13:00 TKC9779 (Rec: 07/20/18 13:27 UAB3581 ICU-C15) Document 07/20/18 17:06 YGD2007 (Rec: 07/20/18 17:06 GOA6152 ICU-C15) Document 07/21/18 08:55 DBB0465 (Rec: 07/21/18 08:55 XJG5709 ICU-M27) Document 07/21/18 12:37 WXA0078 (Rec: 07/21/18 12:37 PTM6586 ICU-C12) Document 07/21/18 17:01 ADA4214 (Rec: 07/21/18 17:01 NBK5461 ICU-C12) Document 07/22/18 09:00 CZF9663 (Rec: 07/22/18 09:11 JBT8419 ICU-M27) Document 07/22/18 13:20 KVN3952 (Rec: 07/22/18 13:20 IIM6986 ICU-C12) Document 07/22/18 17:04 OVO6874 (Rec: 07/22/18 17:04 VVY9752 ICU-C12) Document 07/23/18 09:00 QIM7779 (Rec: 07/23/18 09:39 RBD8868 ICU-C12) Document 07/23/18 13:00 QAI7310 (Rec: 07/23/18 13:43 CKL6564 ICU-C12) Document 07/24/18 09:00 KSK0557 (Rec: 07/24/18 09:12 ZXP0968 ICU-C12) Document 07/24/18 13:00 EPL1382 (Rec: 07/24/18 13:02 DXE6651 ICU-C12) Document 07/24/18 18:00 MPQ1298 (Rec: 07/24/18 18:02 GSU2062 ICU-M27) Intake and Output Start: 07/17/18 15: 30 Freq: Status: Active Protocol: Created 07/17/18 15:30 System (Rec: 07/17/18 15:30 System EDRM-C04) Intake and Output Start: 07/17/18 17: 39 Freq: Q1HR Status: Active Protocol: Created 07/17/18 17:39 System (Rec: 07/17/18 17:39 System ICU-C20) Document 07/17/18 18:00 YYV9067 (Rec: 07/17/18 18:09 ADP5765 ICU-C12) Document 07/17/18 20:00 HXH4693 (Rec: 07/17/18 21:35 DNH8875 ICU-C12) Document 07/17/18 21:00 AKL8817 (Rec: 07/17/18 22:27 HAL4584 ICU-M27) Document 07/17/18 22:00 LJV6709 (Rec: 07/18/18 00:01 GFV3256 ICU-C12) Document 07/17/18 23:00 EDA6915 (Rec: 07/18/18 00:01 ZGG9726 ICU-C12) Document 07/18/18 00:00 PNY0430 (Rec: 07/18/18 02:55 AQX1650 ICU-C12) Document 07/18/18 01:00 DPS5938 (Rec: 07/18/18 02:55 CRG4713 ICU-C12) Document 07/18/18 02:00 BSM0383 (Rec: 07/18/18 02:55 OXK8207 ICU-C12) Document 07/18/18 03:00 TDD2486 (Rec: 07/18/18 03:16 ION9844 ICU-C12) Document 07/18/18 04:00 RUT8305 (Rec: 07/18/18 05:15 ZVM4207 ICU-M27) Document 07/18/18 06:30 SDP6682 (Rec: 07/18/18 06:30 NUK2225 ICU-M27) Document 07/18/18 07:00 CFY0629 (Rec: 07/18/18 07:22 BUE5729 ICU-M27) Document 07/18/18 08:00 VQJ7711 (Rec: 07/18/18 09:14 GQK9492 ICU-M27) Document 07/18/18 09:00 GGT3631 (Rec: 07/18/18 09:15 LSY7256 ICU-M27) Document 07/18/18 10:00 JQS8704 (Rec: 07/18/18 10:08 JCG7135 ICU-C15) Document 07/18/18 11:00 GRR0643 (Rec: 07/18/18 11:07 UQQ8319 ICU-M27) Document 07/18/18 12:00 NHI9963 (Rec: 07/18/18 12:25 UZI3623 ICU-C15) Document 07/18/18 13:00 BQZ3233 (Rec: 07/18/18 13:24 MUD6247 ICU-C15) Document 07/18/18 14:00 NVK1118 (Rec: 07/18/18 14:14 JEL4172 ICU-C15) Document 07/18/18 15:00 UIP6171 (Rec: 07/18/18 15:13 GYV8868 ICU-C15) Document 07/18/18 16:00 RXH8882 (Rec: 07/18/18 17:41 FAK7706 ICU-C15) Document 07/18/18 17:00 HID1212 (Rec: 07/18/18 17:58 AXZ5882 ICU-C15) Document 07/18/18 18:00 OTY8342 (Rec: 07/18/18 18:15 SLH2981 ICU-C15) Document 07/18/18 21:55 LZD6804 (Rec: 07/18/18 21:55 PXF7086 ICU-M27) Document 07/18/18 23:00 KHQ8094 (Rec: 07/18/18 23:31 UWZ0778 ICU-C15) Document 07/18/18 23:59 ZIE4932 (Rec: 07/18/18 23:59 PIN1569 ICU-M27) Document 07/19/18 02:58 EOO1284 (Rec: 07/19/18 02:58 GER5063 ICU-C14) Document 07/19/18 03:00 ROX6554 (Rec: 07/19/18 03:15 NLW9235 ICU-M27) Document 07/19/18 04:00 MRB1230 (Rec: 07/19/18 05:28 EZD1444 ICU-C15) Document 07/19/18 05:00 OJD5548 (Rec: 07/19/18 05:32 ZTA5823 ICU-C15) Document 07/19/18 06:00 PAW2564 (Rec: 07/19/18 06:35 YEN0287 ICU-C15) Document 07/19/18 07:00 GII6004 (Rec: 07/19/18 09:03 PSO9425 ICU-M27) Document 07/19/18 08:00 TVZ6343 (Rec: 07/19/18 09:03 CVP5155 ICU-M27) Document 07/19/18 09:00 BNX8501 (Rec: 07/19/18 09:03 ODW8079 ICU-M27) Document 07/19/18 10:00 BOJ3152 (Rec: 07/19/18 10:41 DPH3832 ICU-M27) Document 07/19/18 10:45 LGS0040 (Rec: 07/19/18 10:45 QIR6680 ICU-M27) Document 07/19/18 11:00 UOK5010 (Rec: 07/19/18 11:04 PCG8307 ICU-M27) Document 07/19/18 12:00 YBS3403 (Rec: 07/19/18 12:12 XJS8875 ICU-M27) Document 07/19/18 12:59 ESS5880 (Rec: 07/19/18 12:59 ISV3702 ICU-L03) Document 07/19/18 13:56 OZK9139 (Rec: 07/19/18 13:57 QMC8670 ICU-L03) Document 07/19/18 14:54 WRV9995 (Rec: 07/19/18 14:54 TUM1782 ICU-L03) Document 07/19/18 16:00 WLD0057 (Rec: 07/19/18 16:42 NMH4793 ICU-C15) Document 07/19/18 17:00 DNB4526 (Rec: 07/19/18 18:31 IYZ6709 ICU-C15) Document 07/19/18 18:00 VEY7238 (Rec: 07/19/18 18:32 QKY5912 ICU-C15) Document 07/19/18 19:00 ZUX3634 (Rec: 07/19/18 19:16 ZTD7317 ICU-M27) Document 07/19/18 21:00 TBL8213 (Rec: 07/19/18 21:27 SAZ6478 ISDEMO-M03 ) Document 07/19/18 22:00 TIG3243 (Rec: 07/19/18 22:13 WVY8051 ICU-L03) Document 07/19/18 22:54 UVG1922 (Rec: 07/19/18 22:54 TJV7037 ICU-M27) Document 07/20/18 00:00 RRQ2729 (Rec: 07/20/18 01:34 INR0112 ICU-L03) Document 07/20/18 01:00 QDH8267 (Rec: 07/20/18 01:34 LOJ8977 ICU-L03) Document 07/20/18 02:00 ZTQ4560 (Rec: 07/20/18 02:07 GJV1479 ICU-L03) Document 07/20/18 03:00 VVE3232 (Rec: 07/20/18 04:37 SVT8551 ICU-L03) Document 07/20/18 04:00 VPA6004 (Rec: 07/20/18 04:37 KQA8992 ICU-L03) Document 07/20/18 05:00 JWX8152 (Rec: 07/20/18 05:12 ERU1439 ICU-L03) Document 07/20/18 06:00 MKT5922 (Rec: 07/20/18 06:07 ZRM8002 ICU-M27) Document 07/20/18 07:00 MEE7524 (Rec: 07/20/18 07:32 XTP9681 ICU-C15) Document 07/20/18 08:00 TCV4483 (Rec: 07/20/18 09:00 MQS6802 ICU-C15) Document 07/20/18 09:00 IHC7784 (Rec: 07/20/18 09:19 MNX6702 ICU-C15) Document 07/20/18 10:00 UKL1771 (Rec: 07/20/18 10:46 VXG8562 ICU-C15) Document 07/20/18 10:47 BMI6676 (Rec: 07/20/18 10:47 LTW6607 ICU-C15) Document 07/20/18 12:17 VNH5861 (Rec: 07/20/18 12:17 KGG8540 ICU-C15) Document 07/20/18 13:00 UBF0709 (Rec: 07/20/18 13:27 KOK8073 ICU-C15) Document 07/20/18 14:16 QRO2793 (Rec: 07/20/18 14:16 EYJ5668 ICU-M27) Document 07/20/18 15:00 TKD4544 (Rec: 07/20/18 15:03 LVR7028 ICU-M27) Document 07/20/18 16:14 ZIC0669 (Rec: 07/20/18 16:14 AHR3901 ICU-M27) Document 07/20/18 17:07 QCP7544 (Rec: 07/20/18 17:07 GFE0790 ICU-C15) Document 07/20/18 18:20 IOA4312 (Rec: 07/20/18 18:20 QNG9285 ISDEKS-M03 ) Document 07/20/18 19:00 QJY6571 (Rec: 07/20/18 21:34 PZH7242 ICU-C15) Document 07/20/18 21:00 JOU3961 (Rec: 07/20/18 21:35 QCQ4486 ICU-C15) Document 07/20/18 22:00 JID4710 (Rec: 07/20/18 22:12 FXN4968 ICU-C15) Document 07/20/18 23:00 FFI8968 (Rec: 07/20/18 23:13 NAG1227 ICU-C15) Document 07/21/18 01:00 YBH0739 (Rec: 07/21/18 01:35 TCH3554 ICU-C15) Document 07/21/18 02:00 JZQ1457 (Rec: 07/21/18 02:14 EFQ5075 ICU-C15) Document 07/21/18 03:00 XZG5667 (Rec: 07/21/18 03:44 DJH1558 ICU-C25) Document 07/21/18 05:00 TLH8182 (Rec: 07/21/18 05:05 LUP7112 ICU-C15) Document 07/21/18 06:00 SWN7329 (Rec: 07/21/18 06:23 TCM3015 ICU-C15) Document 07/21/18 07:00 IIL3820 (Rec: 07/21/18 07:20 UPZ7583 ICU-C12) Document 07/21/18 08:11 GJU4181 (Rec: 07/21/18 08:11 XKF1097 ICU-M27) Document 07/21/18 08:54 ZUQ5000 (Rec: 07/21/18 08:55 RNM6186 ICU-M27) Document 07/21/18 10:00 GHR7908 (Rec: 07/21/18 10:03 CXO7285 ICU-C12) Document 07/21/18 10:59 PMY5181 (Rec: 07/21/18 10:59 TDP6939 ICU-C12) Document 07/21/18 12:33 TSO7698 (Rec: 07/21/18 12:33 NXF8968 ICU-C12) Document 07/21/18 13:06 TXG1287 (Rec: 07/21/18 13:06 ZKG0242 ICU-C12) Document 07/21/18 14:00 TCS2300 (Rec: 07/21/18 14:06 SJN3358 ICU-C12) Document 07/21/18 16:00 GIP4210 (Rec: 07/21/18 16:01 CIK4896 ICU-C12) Document 07/21/18 16:54 NNG6867 (Rec: 07/21/18 16:54 DID3786 ICU-C12) Document 07/21/18 18:00 MJR5365 (Rec: 07/21/18 18:02 MRG7272 ICU-C12) Document 07/21/18 19:00 AXQ4005 (Rec: 07/21/18 19:56 GFB1841 ICU-C15) Document 07/21/18 20:00 QKX7530 (Rec: 07/21/18 21:16 SWC7869 ICU-C15) Document 07/21/18 21:00 TBC2875 (Rec: 07/21/18 21:16 YEV1354 ICU-C15) Document 07/21/18 22:00 EKM7786 (Rec: 07/21/18 22:01 COV4938 ICU-C15) Document 07/21/18 23:00 OEW8935 (Rec: 07/22/18 00:28 LGS9945 ICU-C15) Document 07/22/18 00:00 GPB4946 (Rec: 07/22/18 00:28 KLU5880 ICU-C15) Document 07/22/18 01:00 JPE5960 (Rec: 07/22/18 01:29 FGI8161 ICU-C15) Document 07/22/18 02:00 ZEO2072 (Rec: 07/22/18 03:53 UIT2669 ICU-C15) Document 07/22/18 03:00 ZRQ8383 (Rec: 07/22/18 03:54 KWS6887 ICU-C15) Document 07/22/18 04:00 NXV0345 (Rec: 07/22/18 05:40 CKJ0696 ICU-M27) Document 07/22/18 05:00 QAO2809 (Rec: 07/22/18 05:40 WPV7785 ICU-M27) Document 07/22/18 05:39 OEO2659 (Rec: 07/22/18 05:40 FHF3126 ICU-M27) Document 07/22/18 07:56 AUR7523 (Rec: 07/22/18 07:57 DTJ7568 ICU-M27) Document 07/22/18 09:00 VZC2868 (Rec: 07/22/18 09:11 ODF7841 ICU-M27) Document 07/22/18 09:58 IIS8814 (Rec: 07/22/18 09:58 QIT6556 ICU-M27) Document 07/22/18 11:00 GCC0494 (Rec: 07/22/18 11:06 ZZQ3472 ICU-C12) Document 07/22/18 12:35 GCU3221 (Rec: 07/22/18 12:35 DRO2716 ICU-C12) Document 07/22/18 13:31 CEO5388 (Rec: 07/22/18 13:31 HWS6251 ICU-C12) Document 07/22/18 14:20 DLJ7194 (Rec: 07/22/18 14:20 PXU7864 ICU-M27) Document 07/22/18 15:05 DZI9088 (Rec: 07/22/18 15:05 QVU5884 ICU-C12) Document 07/22/18 15:58 EAS4272 (Rec: 07/22/18 15:58 HBH3546 ICU-C12) Document 07/22/18 17:02 NRG9353 (Rec: 07/22/18 17:03 FON6514 ICU-C12) Document 07/22/18 18:14 LRQ7570 (Rec: 07/22/18 18:15 AXF4681 ICU-C12) Document 07/22/18 19:00 AYF3197 (Rec: 07/22/18 20:14 IUL8919 ICU-C15) Document 07/22/18 20:00 ZHE9759 (Rec: 07/22/18 20:14 SDQ4699 ICU-C15) Document 07/22/18 21:00 WRU5652 (Rec: 07/22/18 21:06 PWC1440 ICU-C15) Document 07/22/18 22:00 YPW0596 (Rec: 07/22/18 22:16 SOJ4663 ICU-C15) Document 07/22/18 23:00 JFZ6308 (Rec: 07/22/18 23:54 BIT0332 ICU-C15) Document 07/22/18 23:54 MGI9628 (Rec: 07/22/18 23:54 OCW7577 ICU-C15) Document 07/23/18 01:00 WQK6241 (Rec: 07/23/18 03:26 KKO3489 ICU-M27) Document 07/23/18 02:00 MXZ9030 (Rec: 07/23/18 03:26 TKP4519 ICU-M27) Document 07/23/18 03:00 MAT8670 (Rec: 07/23/18 03:26 SCH2063 ICU-M27) Document 07/23/18 04:00 WBB2877 (Rec: 07/23/18 05:11 EHT4247 ICU-C15) Document 07/23/18 05:00 FDH8814 (Rec: 07/23/18 05:11 QLE4021 ICU-C15) Document 07/23/18 06:00 EDT1661 (Rec: 07/23/18 06:30 LMY3577 ICU-C15) Document 07/23/18 07:00 HQX3358 (Rec: 07/23/18 08:18 YYV0835 ICU-C12) Document 07/23/18 08:00 WQQ7558 (Rec: 07/23/18 08:57 LRG7911 ICU-M27) Document 07/23/18 08:00 URR6141 (Rec: 07/23/18 08:57 XQD3368 ICU-M27) Document 07/23/18 09:00 WSR2174 (Rec: 07/23/18 09:44 WLA0153 ICU-C12) Document 07/23/18 10:00 CYG7035 (Rec: 07/23/18 10:05 FIA4024 ICU-M27) Document 07/23/18 11:00 MZR0822 (Rec: 07/23/18 11:11 MMT8379 ICU-C12) Document 07/23/18 12:00 LWE4202 (Rec: 07/23/18 12:11 HEP8852 ICU-C12) Document 07/23/18 13:00 RTN2401 (Rec: 07/23/18 13:51 ODN5690 ICU-C12) Document 07/23/18 14:00 XVH3949 (Rec: 07/23/18 17:04 MHK8300 ICU-M27) Document 07/23/18 15:00 YUZ3713 (Rec: 07/23/18 17:04 LMN0684 ICU-M27) Document 07/23/18 16:00 GRD7738 (Rec: 07/23/18 17:04 XXI6631 ICU-M27) Document 07/23/18 17:00 SQP3774 (Rec: 07/23/18 17:04 OUM3188 ICU-M27) Document 07/23/18 17:08 SBO9127 (Rec: 07/23/18 17:09 WKI3107 ICU-M27) Document 07/23/18 18:00 CSY0746 (Rec: 07/23/18 18:58 JJS8686 ICU-C12) Document 07/23/18 19:00 FWZ0559 (Rec: 07/23/18 19:01 XFO5500 ICU-C12) Document 07/23/18 20:00 FXI8213 (Rec: 07/23/18 20:03 BYT5661 ICU-M27) Document 07/23/18 21:00 NJL4890 (Rec: 07/23/18 22:20 QYT3925 ICU-M27) Document 07/23/18 22:00 HBM9647 (Rec: 07/23/18 22:20 TQL1738 ICU-M27) Document 07/23/18 23:00 MLY7274 (Rec: 07/23/18 23:12 BIE9149 ICU-C25) Document 07/24/18 00:00 PQU3271 (Rec: 07/24/18 00:39 EVJ7099 ICU-C25) Document 07/24/18 01:00 VHD1756 (Rec: 07/24/18 01:04 WFD1166 ICU-M27) Document 07/24/18 02:00 JIW2295 (Rec: 07/24/18 03:10 MQM9212 ICU-C25) Document 07/24/18 03:00 WSG0738 (Rec: 07/24/18 03:10 IWX2427 ICU-C25) Document 07/24/18 04:00 MOQ9756 (Rec: 07/24/18 04:06 ORZ8333 ICU-C25) Document 07/24/18 05:00 CRD8710 (Rec: 07/24/18 05:19 UVT9224 ICU-C25) Document 07/24/18 06:00 AGZ9905 (Rec: 07/24/18 06:14 XMJ3317 ICU-M27) Document 07/24/18 07:00 LCW2825 (Rec: 07/24/18 07:19 UNP4556 ICU-C25) Document 07/24/18 08:00 RMC4753 (Rec: 07/24/18 09:00 ORT3949 ICU-C12) Document 07/24/18 09:00 DKR9935 (Rec: 07/24/18 09:00 EXB0640 ICU-C12) Document 07/24/18 10:00 QJC3614 (Rec: 07/24/18 11:47 NGZ4820 ICU-C12) Document 07/24/18 11:00 ATL3189 (Rec: 07/24/18 11:47 XKX2908 ICU-C12) Document 07/24/18 12:00 TML7154 (Rec: 07/24/18 12:12 KGD6352 ICU-C12) Document 07/24/18 13:00 QFA7956 (Rec: 07/24/18 13:01 CFQ0153 ICU-C12) Document 07/24/18 14:00 RRD8593 (Rec: 07/24/18 14:07 CBW9098 ICU-C12) Document 07/24/18 14:14 OHQ1863 (Rec: 07/24/18 14:14 TJW9426 ICU-C12) Document 07/24/18 15:00 LMW6451 (Rec: 07/24/18 15:04 CBZ3895 ICU-C12) Document 07/24/18 16:34 FPE0432 (Rec: 07/24/18 16:34 PIH3198 ICU-C12) Document 07/24/18 17:00 XOA7389 (Rec: 07/24/18 17:52 ITK0549 ICU-M27) Document 07/24/18 17:52 AJR2781 (Rec: 07/24/18 17:52 KFC0233 ICU-M27) Document 07/24/18 19:00 JSJ7847 (Rec: 07/24/18 21:01 DCE2243 ICU-C15) Document 07/24/18 20:00 IJE2281 (Rec: 07/24/18 21:01 VSB5003 ICU-C15) Document 07/24/18 21:00 AUV8798 (Rec: 07/24/18 22:21 GKP6382 ICU-C15) Document 07/24/18 22:00 ZJM2948 (Rec: 07/24/18 22:21 WOE0249 ICU-C15) Document 07/24/18 23:00 DMX7927 (Rec: 07/24/18 23:05 LPV0899 ICU-C15) Document 07/25/18 00:00 QDT5920 (Rec: 07/25/18 00:02 WXK7820 ICU-C15) Document 07/25/18 01:00 PME3419 (Rec: 07/25/18 01:21 FKG8250 ICU-C15) Document 07/25/18 02:00 RUY3815 (Rec: 07/25/18 02:51 NPC8781 ICU-C15) Document 07/25/18 03:00 RRO0559 (Rec: 07/25/18 04:28 KXD8636 ICU-C15) Document 07/25/18 04:00 YUO5023 (Rec: 07/25/18 04:28 YNT0420 ICU-C15) Document 07/25/18 05:00 LFX8951 (Rec: 07/25/18 05:03 IMV9114 ICU-C15) Document 07/25/18 06:00 DRM5004 (Rec: 07/25/18 06:26 QDA3339 ICU-M27) Document 07/25/18 06:52 FHW1865 (Rec: 07/25/18 06:52 IPG8937 ICU-L03) Document 07/25/18 07:32 IGX0945 (Rec: 07/25/18 07:32 PFS5032 ICU-M27) Document 07/25/18 08:00 UOF4938 (Rec: 07/25/18 08:11 CCL1577 ICU-C25) Document 07/25/18 09:00 EHM9276 (Rec: 07/25/18 09:02 HUH3009 ICU-M27) Document 07/25/18 10:00 SCO7995 (Rec: 07/25/18 10:33 YUE8611 ICU-M27) Document 07/25/18 12:00 FPR9231 (Rec: 07/25/18 12:28 TDO1008 ICU-M27) Document 07/25/18 13:00 SBB0309 (Rec: 07/25/18 13:27 WWK8835 ICU-C06) Document 07/25/18 14:00 JEI7159 (Rec: 07/25/18 14:50 GIA5745 ICU-M27) Document 07/25/18 15:00 VFW9300 (Rec: 07/25/18 15:25 JSW3773 ICU-C25) Document 07/25/18 16:48 ZRF6785 (Rec: 07/25/18 16:48 YUK0769 ICU-M27) Document 07/25/18 18:03 JLQ9474 (Rec: 07/25/18 18:03 SBF5289 ICU-C25) Document 07/25/18 19:00 JQF2700 (Rec: 07/25/18 19:33 IBX0256 ICU-M27) Document 07/25/18 20:00 GDP0183 (Rec: 07/25/18 20:03 FJG7458 ICU-M27) Document 07/25/18 21:00 VSY3806 (Rec: 07/25/18 21:32 VNS8385 ICU-C15) Document 07/25/18 22:00 IEN8906 (Rec: 07/25/18 22:04 IFT2936 ICU-C15) Document 07/25/18 23:00 WBZ3842 (Rec: 07/25/18 23:18 SPW3264 ICU-C15) Document 07/26/18 00:00 XUL4496 (Rec: 07/26/18 00:03 NMI6712 ICU-M27) Document 07/26/18 01:00 CTI2548 (Rec: 07/26/18 01:05 FTT7441 ICU-C15) Document 07/26/18 02:00 RMH7243 (Rec: 07/26/18 02:18 TMB8131 ICU-C15) Document 07/26/18 03:00 KPH3147 (Rec: 07/26/18 03:05 TYZ5567 ICU-C15) Document 07/26/18 04:00 QXP9842 (Rec: 07/26/18 05:10 TKY0048 ICU-M27) Document 07/26/18 05:00 PRP9663 (Rec: 07/26/18 05:10 TBS2151 ICU-M27) Document 07/26/18 06:00 IKA4151 (Rec: 07/26/18 06:09 PWO1060 ICU-C15) Document 07/26/18 07:00 YTC8005 (Rec: 07/26/18 07:24 MYW1738 ICU-C12) Document 07/26/18 08:00 YBY9798 (Rec: 07/26/18 09:07 FTF8266 ICU-C12) Document 07/26/18 09:00 JNS1558 (Rec: 07/26/18 09:07 XGD9458 ICU-C12) Document 07/26/18 10:00 IHR9552 (Rec: 07/26/18 11:00 FAI5441 ICU-C12) Document 07/26/18 11:00 FFD8709 (Rec: 07/26/18 11:00 EUC4563 ICU-C12) Document 07/26/18 15:00 SGI9207 (Rec: 07/26/18 15:08 DIY6633 ICU-C12) Document 07/26/18 16:00 ZRI5006 (Rec: 07/26/18 16:04 MBU7092 ICU-C12) Document 07/26/18 16:04 ZUN0157 (Rec: 07/26/18 16:05 JVK0355 ICU-C12) Document 07/26/18 17:00 GRO7439 (Rec: 07/26/18 17:50 SAS4650 ICU-C12) Document 07/26/18 17:50 TAI4467 (Rec: 07/26/18 17:50 YWJ7881 ICU-C12) Document 07/26/18 19:00 MXS9592 (Rec: 07/26/18 20:27 YWJ9541 ICU-M27) Document 07/26/18 20:00 AWX5484 (Rec: 07/26/18 20:27 UET1091 ICU-M27) Document 07/26/18 21:00 LKI5339 (Rec: 07/26/18 22:34 OOP2344 ICU-C25) Document 07/26/18 22:00 REW7818 (Rec: 07/26/18 22:34 ZNO1560 ICU-C25) Document 07/26/18 23:00 GFF3682 (Rec: 07/26/18 23:11 MMO9128 ICU-C25) Document 07/27/18 00:00 BGG3407 (Rec: 07/27/18 01:21 ACF7996 ICU-C25) Document 07/27/18 01:00 OQH5113 (Rec: 07/27/18 01:21 QCF4974 ICU-C25) Document 07/27/18 02:00 KZM5228 (Rec: 07/27/18 06:14 IRN4000 ICU-C25) Document 07/27/18 03:00 UUV6839 (Rec: 07/27/18 06:14 LEF6734 ICU-C25) Document 07/27/18 04:00 VOE0736 (Rec: 07/27/18 06:14 UVH9879 ICU-C25) Document 07/27/18 05:00 VCU1466 (Rec: 07/27/18 06:14 QXY0118 ICU-C25) Document 07/27/18 06:00 RCW7436 (Rec: 07/27/18 06:14 YDP2015 ICU-C25) Document 07/27/18 07:00 ZFV9604 (Rec: 07/27/18 07:48 NXC2926 ICU-M27) Document 07/27/18 08:10 WIO5380 (Rec: 07/27/18 10:26 ZMV5303 ICU-C20) Document 07/27/18 09:00 LTJ9950 (Rec: 07/27/18 10:28 GBM9683 ICU-C20) Document 07/27/18 10:00 WTW9421 (Rec: 07/27/18 12:34 MWP4466 ICU-C12) Document 07/27/18 11:00 OAG3666 (Rec: 07/27/18 12:34 BPB9367 ICU-C12) Document 07/27/18 12:00 UJB4016 (Rec: 07/27/18 13:27 ZYY2241 ICU-C12) Document 07/27/18 13:00 YGR4201 (Rec: 07/27/18 13:29 MUL8916 ICU-C12) Document 07/27/18 14:00 TZP6160 (Rec: 07/27/18 15:41 NQF3885 ICU-C12) Document 07/27/18 15:00 BAH5350 (Rec: 07/27/18 15:44 UWF4371 ICU-C12) Document 07/27/18 16:14 AJK7966 (Rec: 07/27/18 16:14 OQW0011 ICU-C12) Document 07/27/18 17:00 MZA3910 (Rec: 07/27/18 18:39 AQK8575 ICU-C12) Document 07/27/18 18:00 NBC5804 (Rec: 07/27/18 18:40 JUI6889 ICU-C12) Document 07/27/18 19:00 MYS0244 (Rec: 07/27/18 21:29 XCX1326 ICU-C14) Document 07/27/18 20:00 VRJ2516 (Rec: 07/27/18 21:29 KOS9668 ICU-C14) Document 07/27/18 21:00 BVB2572 (Rec: 07/27/18 21:29 LBH6982 ICU-C14) Document 07/27/18 22:00 QRD4317 (Rec: 07/27/18 22:27 VWP8455 ICU-C14) Document 07/27/18 23:00 MBL7576 (Rec: 07/28/18 05:25 YIW2951 ICU-C14) Document 07/28/18 00:00 SWN3089 (Rec: 07/28/18 05:25 QUW1789 ICU-C14) Document 07/28/18 01:00 ALA6182 (Rec: 07/28/18 05:25 ROA2285 ICU-C14) Document 07/28/18 02:00 KNN2622 (Rec: 07/28/18 05:25 TDL9845 ICU-C14) Document 07/28/18 03:00 SLK7121 (Rec: 07/28/18 05:25 LPU2700 ICU-C14) Document 07/28/18 04:00 LUY4619 (Rec: 07/28/18 05:25 JYB8732 ICU-C14) Document 07/28/18 05:00 SWK4509 (Rec: 07/28/18 05:25 TLG7259 ICU-C14) Document 07/28/18 06:00 GRY3700 (Rec: 07/28/18 07:24 LAB6492 ICU-C14) Document 07/28/18 07:00 MPF0851 (Rec: 07/28/18 07:24 ULW4969 ICU-C14) Document 07/28/18 09:00 NVH4031 (Rec: 07/28/18 11:12 XMY6633 ICU-M27) Document 07/28/18 10:00 AGQ4003 (Rec: 07/28/18 11:13 YPS7829 ICU-M27) Document 07/28/18 11:00 MVW5845 (Rec: 07/28/18 11:13 ZTP7872 ICU-M27) Document 07/28/18 12:00 DNU0890 (Rec: 07/28/18 16:15 UMT8023 ICU-M27) Document 07/28/18 13:00 YYV7469 (Rec: 07/28/18 16:15 DPI0094 ICU-M27) Document 07/28/18 14:00 UBV7401 (Rec: 07/28/18 16:15 NSQ1705 ICU-M27) Document 07/28/18 15:00 QVY1340 (Rec: 07/28/18 16:15 CNJ9836 ICU-M27) Document 07/28/18 16:00 MPD1950 (Rec: 07/28/18 17:42 LSD0908 ICU-M27) Document 07/28/18 17:00 GCT1244 (Rec: 07/28/18 17:42 ENC1437 ICU-M27) Document 07/28/18 18:00 PQF0503 (Rec: 07/28/18 18:01 ZEY0023 ICU-M27) Document 07/28/18 19:00 ELN4334 (Rec: 07/28/18 19:34 TRD2074 ICU-C12) Document 07/28/18 20:00 TNI7271 (Rec: 07/28/18 20:35 NIY4001 ICU-C12) Document 07/28/18 21:00 HVU6130 (Rec: 07/28/18 21:27 RMO4711 ICU-C12) Document 07/28/18 22:00 KSV1308 (Rec: 07/28/18 22:21 FRJ5199 ICU-C12) Document 07/28/18 23:00 HSB0369 (Rec: 07/28/18 23:19 JMF0931 ICU-C12) Document 07/29/18 00:00 KOK0547 (Rec: 07/29/18 00:24 SYR9796 ICU-C12) Document 07/29/18 01:00 LLG7341 (Rec: 07/29/18 01:20 NRA0741 ICU-C12) Document 07/29/18 02:00 BGB7805 (Rec: 07/29/18 02:46 ICK5736 ICU-C12) Document 07/29/18 03:00 VAU9396 (Rec: 07/29/18 03:16 JDE7907 ICU-C12) Document 07/29/18 04:00 UFO8179 (Rec: 07/29/18 04:07 DVT4113 ICU-C12) Document 07/29/18 05:00 LPT9778 (Rec: 07/29/18 05:44 YBM1675 ICU-C12) Document 07/29/18 06:00 UBR8063 (Rec: 07/29/18 06:15 SZA7825 ICU-C12) Document 07/29/18 06:16 IVE3357 (Rec: 07/29/18 06:17 WPR4566 ICU-C12) Document 07/29/18 06:17 HEJ0846 (Rec: 07/29/18 06:17 FMP4218 ICU-C12) Document 07/29/18 07:00 YRA1833 (Rec: 07/29/18 08:17 GVR1008 ICU-M27) Document 07/29/18 08:00 QGO0484 (Rec: 07/29/18 08:17 PMT6871 ICU-M27) Document 07/29/18 09:00 WNA0623 (Rec: 07/29/18 09:11 HIB1283 ICU-M27) Document 07/29/18 10:00 FUK2357 (Rec: 07/29/18 11:08 HKX5665 ICU-M27) Document 07/29/18 11:00 RVR6463 (Rec: 07/29/18 11:08 SBX3041 ICU-M27) Document 07/29/18 12:00 FBC0420 (Rec: 07/29/18 12:46 HRN0442 ICU-M27) Document 07/29/18 13:00 WLI4684 (Rec: 07/29/18 13:26 NEV7869 ICU-M27) Document 07/29/18 14:00 SBY9775 (Rec: 07/29/18 14:16 BCD8757 ICU-M27) Document 07/29/18 15:00 QVW6115 (Rec: 07/29/18 15:40 ZDB1742 ICU-M27) Document 07/29/18 16:00 XEC0847 (Rec: 07/29/18 16:42 RVQ9627 ICU-M27) Document 07/29/18 17:00 PDH3991 (Rec: 07/29/18 17:42 VBY8755 ICU-M27) Document 07/29/18 18:00 OZC4021 (Rec: 07/29/18 18:45 PCH1857 ICU-C15) Document 07/29/18 19:00 CNE7907 (Rec: 07/29/18 21:09 BCU1071 ICU-C12) Document 07/29/18 20:00 JXA1160 (Rec: 07/29/18 21:09 BDM7108 ICU-C12) Document 07/29/18 21:00 KCE3273 (Rec: 07/29/18 21:09 DNE5133 ICU-C12) Document 07/29/18 22:00 TDS1823 (Rec: 07/29/18 22:21 CQU2005 ICU-C12) Document 07/29/18 23:00 ORR2302 (Rec: 07/30/18 00:45 KYP0443 ICU-C12) Document 07/30/18 00:00 OPU3985 (Rec: 07/30/18 00:45 MVW8608 ICU-C12) Document 07/30/18 01:00 KGD2646 (Rec: 07/30/18 04:53 IMW7785 ICU-C12) Document 07/30/18 02:00 APT6445 (Rec: 07/30/18 04:53 VBS3611 ICU-C12) Document 07/30/18 03:00 YSA2285 (Rec: 07/30/18 04:53 DRC6524 ICU-C12) Document 07/30/18 04:00 DEA3736 (Rec: 07/30/18 04:53 YMU9552 ICU-C12) Document 07/30/18 04:53 SUF7065 (Rec: 07/30/18 04:53 MBO3245 ICU-C12) Document 07/30/18 04:54 ORX9623 (Rec: 07/30/18 04:54 ZTI7809 ICU-M22) Document 07/30/18 05:22 WZQ8094 (Rec: 07/30/18 05:23 UPL9063 ICU-C12) Document 07/30/18 07:00 KIY4923 (Rec: 07/30/18 08:51 ZXK9794 ICU-C25) Document 07/30/18 08:00 OLC1499 (Rec: 07/30/18 08:51 QEB4910 ICU-C25) Document 07/30/18 09:00 NLX4749 (Rec: 07/30/18 10:19 JHI3887 ICU-C25) Document 07/30/18 10:00 XHF3631 (Rec: 07/30/18 10:20 FVH4760 ICU-C25) Document 07/30/18 12:00 RAY2781 (Rec: 07/30/18 14:50 WRB7456 ICU-C25) Document 07/30/18 13:00 GBY7770 (Rec: 07/30/18 14:51 SFC7713 ICU-C25) Document 07/30/18 15:00 CDP0330 (Rec: 07/30/18 15:07 VXY6762 ICU-C25) Document 07/30/18 16:00 UYV8371 (Rec: 07/30/18 19:13 KSF7111 ICU-C06) Document 07/30/18 17:00 CWW7629 (Rec: 07/30/18 19:13 XDS3794 ICU-C06) Document 07/30/18 19:00 YJX3178 (Rec: 07/30/18 22:52 JFF5233 ICU-C07) Document 07/30/18 23:00 MQZ7311 (Rec: 07/30/18 23:28 AXJ2244 ICU-C07) Document 07/30/18 23:28 QVR4138 (Rec: 07/30/18 23:34 HTZ0910 ICU-C07) Document 07/31/18 01:00 MAP3812 (Rec: 07/31/18 02:00 ZDW6659 ICU-C07) Document 07/31/18 03:48 CIA8222 (Rec: 07/31/18 03:59 FYI6940 ICU-C07) Document 07/31/18 05:21 MMX0806 (Rec: 07/31/18 05:23 URY2109 ICU-M27) Document 07/31/18 07:00 KWO1225 (Rec: 07/31/18 07:57 ZJY1961 ICU-C25) Document 07/31/18 07:57 LWZ3672 (Rec: 07/31/18 07:57 QDX3197 ICU-C25) Document 07/31/18 09:38 IPM1997 (Rec: 07/31/18 09:38 GXD6693 ICU-M27) Document 07/31/18 10:00 TIP8984 (Rec: 07/31/18 11:46 EUL6594 ICU-C25) Document 07/31/18 11:00 JEM6163 (Rec: 07/31/18 11:46 GFE8606 ICU-C25) Document 07/31/18 12:00 OVC9898 (Rec: 07/31/18 13:45 AGS1116 ICU-C25) Document 07/31/18 13:00 HGV4157 (Rec: 07/31/18 13:45 JBJ2115 ICU-C25) Document 07/31/18 13:45 YNM9737 (Rec: 07/31/18 13:45 MTT5311 ICU-C25) Document 07/31/18 15:36 SPX3048 (Rec: 07/31/18 15:36 RYX2994 ICU-C25) Document 07/31/18 17:51 HJA7599 (Rec: 07/31/18 17:51 VWP3643 ICU-M27) Document 07/31/18 19:00 NHJ1294 (Rec: 07/31/18 22:29 HBB4514 ICU-M27) Document 07/31/18 20:00 EJH9877 (Rec: 07/31/18 22:29 MIK6179 ICU-M27) Document 07/31/18 21:00 RIC6766 (Rec: 07/31/18 22:29 ZTK0432 ICU-M27) Document 07/31/18 22:00 EZW3634 (Rec: 07/31/18 22:29 NUF3458 ICU-M27) Document 07/31/18 23:00 LGA9925 (Rec: 07/31/18 23:29 UIT7747 ICU-C14) Document 08/01/18 00:00 OXV1520 (Rec: 08/01/18 00:16 IYU5434 ICU-M27) Document 08/01/18 01:00 OHQ9119 (Rec: 08/01/18 01:45 PLI5490 ICU-C14) Document 08/01/18 02:00 RXF8174 (Rec: 08/01/18 02:37 XMF8022 ICU-C14) Document 08/01/18 03:00 OKH3629 (Rec: 08/01/18 03:15 PEG9982 ICU-M27) Document 08/01/18 04:00 LRT2422 (Rec: 08/01/18 04:15 RUH7434 ICU-C14) Document 08/01/18 05:00 JAZ4757 (Rec: 08/01/18 05:12 PJM0855 ICU-C14) Document 08/01/18 06:00 SEP0747 (Rec: 08/01/18 06:43 YKT2866 ICU-C14) Document 08/01/18 07:42 ZGU1143 (Rec: 08/01/18 07:42 ICU-C12) Document 08/01/18 08:00 BCK5149 (Rec: 08/01/18 09:08 SKD8518 ICU-M27) Document 08/01/18 09:00 LRC5692 (Rec: 08/01/18 09:08 IBJ3406 ICU-M27) Document 08/01/18 10:00 YCM0989 (Rec: 08/01/18 11:28 QLA8013 ICU-M27) Document 08/01/18 11:00 OAI9623 (Rec: 08/01/18 11:28 QRT7540 ICU-M27) Document 08/01/18 13:24 IQW1578 (Rec: 08/01/18 13:24 FXA2763 ICU-M27) Document 08/01/18 14:00 JFE1481 (Rec: 08/01/18 14:58 AGB6123 ICU-M27) Document 08/01/18 14:58 SMC0659 (Rec: 08/01/18 14:58 EEJ3492 ICU-M27) Document 08/01/18 15:40 CYD2189 (Rec: 08/01/18 15:40 INE0823 ICU-C12) Document 08/01/18 17:00 EJH9863 (Rec: 08/01/18 18:23 DDF6436 ICU-C12) Document 08/01/18 18:00 ETK7240 (Rec: 08/01/18 18:23 HJR5500 ICU-C12) Document 08/01/18 19:00 JOC1012 (Rec: 08/01/18 20:14 QFQ9857 ICU-M27) Document 08/01/18 20:00 WZR4804 (Rec: 08/01/18 20:14 ECL0909 ICU-M27) Document 08/01/18 21:00 KHK7793 (Rec: 08/01/18 23:28 GUI9016 ICU-C12) Document 08/01/18 22:00 EWB0857 (Rec: 08/01/18 23:28 XWY5541 ICU-C12) Document 08/01/18 23:40 JRM3386 (Rec: 08/01/18 23:43 VAO5128 ICU-M27) Document 08/02/18 00:00 SYJ3015 (Rec: 08/02/18 01:30 AWQ9091 ICU-C12) Document 08/02/18 01:00 BZT9523 (Rec: 08/02/18 01:30 BMG8248 ICU-C12) Document 08/02/18 02:00 DNH4836 (Rec: 08/02/18 02:03 CLP9551 ICU-M27) Document 08/02/18 03:00 HOH0928 (Rec: 08/02/18 03:40 BWV4635 ICU-M27) Document 08/02/18 04:25 HME5905 (Rec: 08/02/18 04:25 DRN5837 ICU-M27) Document 08/02/18 05:00 ZYT2589 (Rec: 08/02/18 05:52 TRW7042 ICU-M27) Document 08/02/18 05:52 XJV7048 (Rec: 08/02/18 05:53 TWX2461 ICU-M27) Document 08/02/18 08:38 AEK0277 (Rec: 08/02/18 08:38 SYA2393 ICU-C12) Document 08/02/18 09:29 CFB8579 (Rec: 08/02/18 09:29 BYN8660 ICU-M27) Document 08/02/18 11:11 JAV3300 (Rec: 08/02/18 11:11 FZE1618 ICU-C12) Document 08/02/18 12:24 INV9705 (Rec: 08/02/18 12:24 AJP7453 ICU-M27) Document 08/02/18 13:21 HYH5056 (Rec: 08/02/18 13:21 NJE2195 ICU-C12) Document 08/02/18 13:56 ZUN0564 (Rec: 08/02/18 13:56 WSH8095 ICU-M27) Document 08/02/18 15:00 OLZ0680 (Rec: 08/02/18 15:01 VGN3943 ICU-C12) Document 08/02/18 15:14 RUM9574 (Rec: 08/02/18 15:15 NBF9652 ICU-C12) Document 08/02/18 15:46 TEO9614 (Rec: 08/02/18 15:54 HUV1249 ICU-M27) Document 08/02/18 16:09 NZV8718 (Rec: 08/02/18 16:10 QFT3657 ICU-M27) Document 08/02/18 17:06 TWR9807 (Rec: 08/02/18 17:06 HKV3579 ICU-C12) Document 08/02/18 18:01 UQI0937 (Rec: 08/02/18 18:01 BLF1848 ICU-C12) Document 08/02/18 19:00 EKQ0578 (Rec: 08/02/18 19:15 OTT7132 ICU-C12) Document 08/02/18 20:00 FJW9179 (Rec: 08/02/18 22:06 BVS2890 ICU-M27) Document 08/02/18 21:00 OAM4482 (Rec: 08/02/18 22:06 ITX4467 ICU-M27) Document 08/02/18 22:00 YTV0982 (Rec: 08/02/18 22:06 MMJ8893 ICU-M27) Document 08/02/18 23:00 ENT6976 (Rec: 08/03/18 00:33 LDY4356 ICU-C12) Document 08/03/18 00:00 ZYB5431 (Rec: 08/03/18 00:41 PJW7067 ICU-M27) Document 08/03/18 01:00 QSS8890 (Rec: 08/03/18 01:29 MNP5186 ICU-C12) Document 08/03/18 02:00 XYU3173 (Rec: 08/03/18 03:57 OJQ3331 ICU-C12) Document 08/03/18 03:00 JZQ2630 (Rec: 08/03/18 03:57 OCU7519 ICU-C12) Document 08/03/18 04:00 NUN7254 (Rec: 08/03/18 04:20 MQU4510 ICU-M27) Document 08/03/18 05:00 EPF6983 (Rec: 08/03/18 05:22 NIB5364 ICU-M27) Document 08/03/18 05:35 QOQ8481 (Rec: 08/03/18 05:36 ITA4633 ICU-M27) Document 08/03/18 07:35 KRB8449 (Rec: 08/03/18 07:36 BCY6366 ICU-C12) Document 08/03/18 08:00 BFX0761 (Rec: 08/03/18 08:18 YMF0155 ICU-M27) Document 08/03/18 08:47 HOH7415 (Rec: 08/03/18 08:48 IBI5803 ICU-M27) Document 08/03/18 09:46 LEW4593 (Rec: 08/03/18 09:46 LBR7369 ICU-M27) Document 08/03/18 10:40 XZA1323 (Rec: 08/03/18 10:40 TUR6431 ICU-C12) Document 08/03/18 11:45 FUK9750 (Rec: 08/03/18 11:45 XXV5856 ICU-M27) Document 08/03/18 12:26 GKQ9439 (Rec: 08/03/18 12:26 KVM0832 ICU-M27) Document 08/03/18 12:59 DIL4233 (Rec: 08/03/18 12:59 TKQ6518 ICU-C12) Document 08/03/18 13:46 ZIQ5131 (Rec: 08/03/18 13:46 JET2873 ICU-M27) Document 08/03/18 14:46 GYN9588 (Rec: 08/03/18 14:47 OEM0450 ICU-M27) Document 08/03/18 15:49 DFE7268 (Rec: 08/03/18 15:50 NNB2432 ICU-M27) Document 08/03/18 16:52 FRH5625 (Rec: 08/03/18 16:52 KAN7126 ICU-M27) Document 08/03/18 17:58 AKN2567 (Rec: 08/03/18 17:58 SXO5892 ICU-M27) Document 08/03/18 19:00 RIU7881 (Rec: 08/03/18 20:44 VGF7629 ICU-M27) Document 08/03/18 20:00 SDC2547 (Rec: 08/03/18 20:44 NVZ3972 ICU-M27) Document 08/03/18 21:00 HMY6980 (Rec: 08/03/18 21:48 PEH4032 ICU-M27) Document 08/03/18 21:47 JCS3429 (Rec: 08/03/18 21:48 CCC8080 ICU-M27) Document 08/03/18 23:31 ZES5469 (Rec: 08/03/18 23:32 JWY0950 ICU-M27) Document 08/04/18 03:00 YYI3971 (Rec: 08/04/18 03:07 KPU9997 ICU-C25) Document 08/04/18 04:00 WKB8641 (Rec: 08/04/18 05:23 ORS5453 ICU-M27) Document 08/04/18 05:00 JKS4883 (Rec: 08/04/18 05:23 GWL3111 ICU-M27) Document 08/04/18 06:00 PGP6559 (Rec: 08/04/18 06:17 TCY1032 ICU-C25) Document 08/04/18 07:00 EZP6166 (Rec: 08/04/18 08:36 SCL0920 ICU-C12) Document 08/04/18 10:00 KRP9177 (Rec: 08/04/18 13:41 VYJ1985 ICU-C12) Document 08/04/18 11:00 NLK0254 (Rec: 08/04/18 13:42 ZMR8944 ICU-C12) Document 08/04/18 13:00 SIN3183 (Rec: 08/04/18 13:42 YCR6377 ICU-C12) Document 08/04/18 16:00 TOA4259 (Rec: 08/04/18 19:01 RMM9973 ICU-C12) Document 08/04/18 18:00 NHQ9537 (Rec: 08/04/18 19:01 YGH2475 ICU-C12) Document 08/04/18 20:00 ZMT9745 (Rec: 08/04/18 22:34 UHK3132 ICU-C25) Document 08/05/18 00:00 XTI8391 (Rec: 08/05/18 00:04 FQQ4951 ICU-C25) Document 08/05/18 03:00 SAZ5883 (Rec: 08/05/18 03:50 XFH9636 ICU-C25) Document 08/05/18 03:59 FLL0768 (Rec: 08/05/18 04:08 ARS9228 ICU-C25) Document 08/05/18 05:00 GAD4010 (Rec: 08/05/18 05:38 JIH5889 ICU-C25) Document 08/05/18 05:55 ACP3084 (Rec: 08/05/18 06:36 SYO2115 ICU-C25) Document 08/05/18 08:30 RFX7246 (Rec: 08/05/18 09:35 RWA9571 ICU-C10) Document 08/05/18 10:00 JHO9000 (Rec: 08/05/18 11:22 XGA5514 ICU-C10) Document 08/05/18 11:00 BXM0248 (Rec: 08/05/18 11:22 FTJ6347 ICU-C10) Document 08/05/18 12:00 EAD3417 (Rec: 08/05/18 15:34 CSN2701 ICU-C10) Document 08/05/18 13:00 OPY8769 (Rec: 08/05/18 15:34 FMP2890 ICU-C10) Document 08/05/18 14:00 TJL3000 (Rec: 08/05/18 15:34 PZB8098 ICU-C10) Document 08/05/18 16:00 SKH5238 (Rec: 08/05/18 18:25 CCQ0966 ICU-C10) Document 08/05/18 17:00 RLI1531 (Rec: 08/05/18 18:25 CSI9895 ICU-C10) Document 08/05/18 18:00 WQP1898 (Rec: 08/05/18 18:25 VMS7415 ICU-C10) Document 08/05/18 19:00 BHY6152 (Rec: 08/05/18 19:49 UEQ7784 ICU-M27) Document 08/05/18 20:00 EJZ3647 (Rec: 08/05/18 20:51 DZH2738 ICU-M27) Document 08/05/18 21:00 HDS4245 (Rec: 08/05/18 21:16 PKD0673 ICU-M27) Document 08/05/18 22:00 VFN9379 (Rec: 08/05/18 22:11 WDE0545 ICU-M27) Document 08/05/18 23:00 PZS7512 (Rec: 08/05/18 23:16 HMS5988 ICU-M27) Document 08/06/18 00:00 UNE4500 (Rec: 08/06/18 00:35 NRL2665 ICU-M27) Document 08/06/18 01:00 DBV2345 (Rec: 08/06/18 01:02 AWQ0261 ICU-M27) Document 08/06/18 02:00 NQM5672 (Rec: 08/06/18 02:22 TLA4962 ICU-M27) Document 08/06/18 03:00 XCJ3908 (Rec: 08/06/18 03:04 KPT3478 ICU-M27) Document 08/06/18 04:00 KPH3125 (Rec: 08/06/18 04:06 REP5567 ICU-M27) Document 08/06/18 05:00 GAB9295 (Rec: 08/06/18 06:16 LVS0784 ICU-M30) Document 08/06/18 06:00 OYX7502 (Rec: 08/06/18 06:17 ORC6349 ICU-M30) Document 08/06/18 08:00 ROF7170 (Rec: 08/06/18 11:13 QDF9574 ICU-C15) Document 08/06/18 09:00 LZN9423 (Rec: 08/06/18 11:13 TXU6756 ICU-C15) Document 08/06/18 10:00 QMF9742 (Rec: 08/06/18 11:13 MSB6971 ICU-C15) Document 08/06/18 11:00 CYG2047 (Rec: 08/06/18 11:13 UTA7165 ICU-C15) Document 08/06/18 12:00 DPT8145 (Rec: 08/06/18 13:11 OGU5121 ICU-C15) Document 08/06/18 12:15 TRC3816 (Rec: 08/06/18 12:15 MOV7963 ICU-C12) Document 08/06/18 13:00 MCT0205 (Rec: 08/06/18 13:01 BWB9729 ICU-M27) Document 08/06/18 14:00 JJE5239 (Rec: 08/06/18 14:05 AOP3206 ICU-C15) Document 08/06/18 14:52 XOP0411 (Rec: 08/06/18 14:52 RGT6902 ICU-C14) Document 08/06/18 16:00 AXK7188 (Rec: 08/06/18 17:21 JIB1666 ICU-C15) Document 08/06/18 17:00 DWA6565 (Rec: 08/06/18 17:21 WXC1519 ICU-C15) Document 08/06/18 18:00 FKX4114 (Rec: 08/06/18 19:23 JXV6915 ICU-C15) Document 08/06/18 19:00 ATO5223 (Rec: 08/06/18 20:32 WAE4398 ICU-M27) Document 08/06/18 20:00 AGR7316 (Rec: 08/06/18 20:32 CHN7259 ICU-M27) Document 08/06/18 21:00 JWZ1871 (Rec: 08/06/18 22:24 EDC7389 ICU-M27) Document 08/06/18 22:00 MKD5823 (Rec: 08/06/18 22:24 TUG9501 ICU-M27) Document 08/06/18 23:00 RCE4033 (Rec: 08/07/18 02:38 UYG8070 ICU-L03) Document 08/07/18 00:00 NAE4545 (Rec: 08/07/18 02:38 JOQ3887 ICU-L03) Document 08/07/18 01:00 KLO9968 (Rec: 08/07/18 02:38 OOC1903 ICU-L03) Document 08/07/18 02:00 LHR8100 (Rec: 08/07/18 02:38 HHX4995 ICU-L03) Document 08/07/18 03:00 GBI3747 (Rec: 08/07/18 03:05 PUE0407 ICU-L03) Document 08/07/18 04:00 UMS0126 (Rec: 08/07/18 07:43 POR0864 ICU-L03) Document 08/07/18 05:00 IPK5340 (Rec: 08/07/18 07:43 RRR7102 ICU-L03) Document 08/07/18 06:00 PRP1573 (Rec: 08/07/18 07:43 WGP2176 ICU-L03) Document 08/07/18 07:00 MFX6112 (Rec: 08/07/18 07:43 FNS5694 ICU-L03) Document 08/07/18 08:00 SSZ1357 (Rec: 08/07/18 08:23 YVA6029 ICU-C15) Document 08/07/18 09:00 EQO2077 (Rec: 08/07/18 09:12 LAI4474 ICU-M27) Document 08/07/18 09:59 JHQ9429 (Rec: 08/07/18 09:59 ITB2170 ICU-M27) Document 08/07/18 11:00 OSW9226 (Rec: 08/07/18 11:15 EGS8385 ICU-M27) Document 08/07/18 12:00 DDL4604 (Rec: 08/07/18 12:03 RUB2390 ICU-M27) Document 08/07/18 13:00 CWC6973 (Rec: 08/07/18 13:15 IKE0393 ICU-M27) Document 08/07/18 14:00 PRV7541 (Rec: 08/07/18 15:12 YJK7490 ICU-M27) Document 08/07/18 15:00 NLW7201 (Rec: 08/07/18 15:16 UQM8450 ICU-M27) Document 08/07/18 15:20 APX1587 (Rec: 08/07/18 15:31 AHA4553 ICU-C15) Document 08/07/18 17:00 STK0507 (Rec: 08/07/18 17:33 WSU9094 ICU-M27) Document 08/07/18 19:51 FDA0415 (Rec: 08/07/18 19:51 JHE4890 ICU-M27) Document 08/07/18 21:00 VZI9986 (Rec: 08/07/18 21:22 MOD0966 ICU-C25) Document 08/07/18 22:00 ZOQ0389 (Rec: 08/08/18 00:33 ROM3106 ICU-C15) Document 08/07/18 23:00 CPK7057 (Rec: 08/08/18 00:33 LOA3748 ICU-C15) Document 08/08/18 00:00 SLQ4096 (Rec: 08/08/18 00:33 SKQ6233 ICU-C15) Document 08/08/18 01:00 QNR3263 (Rec: 08/08/18 04:19 HOC9583 ICU-C15) Document 08/08/18 02:00 RTM5514 (Rec: 08/08/18 04:19 UBF6316 ICU-C15) Document 08/08/18 03:00 SPT3042 (Rec: 08/08/18 05:12 NAY8174 ICU-M27) Document 08/08/18 04:00 OGX5112 (Rec: 08/08/18 05:12 VFY1797 ICU-M27) Document 08/08/18 05:00 JXS9114 (Rec: 08/08/18 05:12 DGP2293 ICU-M27) Document 08/08/18 06:00 HCO5414 (Rec: 08/08/18 06:38 TPD4254 ICU-M27) Document 08/08/18 06:44 ODZ9253 (Rec: 08/08/18 06:44 DGF9877 ICU-C15) Document 08/08/18 07:00 UWD3382 (Rec: 08/08/18 08:59 JJY8070 [facility]-M03 ) Document 08/08/18 08:00 VXN1016 (Rec: 08/08/18 08:59 QSZ1169 ISDEMO-M03 ) Document 08/08/18 09:00 RXJ9844 (Rec: 08/08/18 11:34 AKS7587 ICU-C15) Document 08/08/18 10:00 LPW0079 (Rec: 08/08/18 11:34 BCN9502 ICU-C15) Document 08/08/18 11:00 ETQ2869 (Rec: 08/08/18 11:34 SGG1331 ICU-C15) Document 08/08/18 12:00 WJL5087 (Rec: 08/08/18 12:20 WBQ5374 ICU-C15) Document 08/08/18 13:00 AQP2812 (Rec: 08/08/18 14:52 EMK3659 ISDEMO-M03 ) Document 08/08/18 14:00 RVZ0481 (Rec: 08/08/18 14:52 BEV1642 ISDEMO-M03 ) Document 08/08/18 15:00 OLQ3248 (Rec: 08/08/18 15:30 WPV4818 ICU-C15) Document 08/08/18 16:00 TDY3884 (Rec: 08/08/18 17:02 UYY9571 ICU-M27) Document 08/08/18 17:00 YOI9550 (Rec: 08/08/18 17:02 KKQ8439 ICU-M27) Document 08/08/18 18:00 QPE9619 (Rec: 08/08/18 18:14 BBN8849 ICU-C15) Document 08/08/18 22:28 QEE5504 (Rec: 08/08/18 22:28 UHD0508 ICU-C12) Document 08/09/18 01:25 CIY0342 (Rec: 08/09/18 01:26 MJS8737 ICU-M27) Document 08/09/18 05:00 IZR3624 (Rec: 08/09/18 05:08 MRG4360 ICU-M27) Document 08/09/18 06:42 TUM4066 (Rec: 08/09/18 06:46 ZPD5228 ICU-M27) Document 08/09/18 07:51 HBX5950 (Rec: 08/09/18 07:51 LMU4870 ICU-C12) Document 08/09/18 09:00 NSO3903 (Rec: 08/09/18 11:04 MYW5252 ICU-C12) Document 08/09/18 10:00 HWA7261 (Rec: 08/09/18 11:04 LLG5476 ICU-C12) Document 08/09/18 11:00 TGR6096 (Rec: 08/09/18 11:05 WBN2877 ICU-C12) Document 08/09/18 12:00 JVA1275 (Rec: 08/09/18 12:09 VGC7072 ICU-C12) Labs: Laboratory Results - last 24 hr 08/08/18 08/08/18 08/09/18 11:52 17:59 01:22 POC Glucose (mg/dL) 88 93 101 H 08/09/18 06:41 POC Glucose (mg/dL) 88 Studies: CXR 08/07: persistent opacities bilaterally with improvement in the bases R>L compared to 08/04 CXR 08/04: Increased bilateral alveolar opacities compared to prior study Nutrition: Hold TF due to recent PEG Tube placement Impression: Acute encephalopathy Critical illness neuromyopathy Prolonged mechanical ventilation Hypoxemic respiratory failure Pulmonary edema, anasarca Diarrhea C-Diff associated diarrhea (CDAD) Peg tube placement 08/07 Electrolyte abnormalities- hypokalemia, hypomagnesemia Plan: Peg tube placement 08/07 Electrolyte abnormalities- hypokalemia, hypomagnesemia # Acute encephalopathy # Critical illness neuromyopathy # hx/o depression Improving mental status grossly - off precedex since 08/07 - on citalopram # Prolonged mechanical ventilation # Hypoxemic respiratory failure # Pulmonary edema, anasarca # PNA - Plan to Trach collar today as tolerated. - Ok to rest on vent if she tires out - s/p abx tx. Afebrile (Tmax 100.2-->99.7), resp status improving to stable, and no leukocytosis- hold new abx. Will attribute new RCX Staph aureus and KPNA as possible colonizer. -Continue Lasix 20 mg daily. Monitory I/O # Diarrhea # C-Diff associated diarrhea (CDAD) - c/w oral vanc and IV flagyl for total of 14 days - fiber (guar gum, wheat dextrin, inulin, fructooligosaccharides)for TF # s/p Peg tube placement 08/07 # Malnutrition # Electrolyte abnormalities- hypokalemia, hypomagnesemia low enteral intake +/- diuretic induced replaced K and Mg 08/08 - will start TF as per clearance from GI # HTN BP optimized on atenolol, lisinopril (held due to NPO status) -Will start prn hydralazine DVT PPX: Enoxaparin Prognosis: Guarded Dispo: Monitor in ICU. Anticipate discharge to Vent facility if able to tolerate TC for >48 h Critical care issues: acute respiratory failure due to hypoxemia, mechanical ventilation, precedex Critical Care Time: 40 min
[2018-08-09] MEDS ORDERED: hydrALAZINE IV* 20 MG/ML VIAL IV SLOW PU PRN (12:42)
--- NOTE | 2018-08-09 14:34 | CONSULT ---
Consult Consult: WOUND CONSULT NOTE Date of Service: 08/09/18 History: Interval History: Patient seen and examined at bedside. Patient is non verbal but alert. NSG have no new concerns. Ms. Davis presented to the emergency room with complaints of nausea, vomiting, chest pain and shortness of breath, she was found to have pneumonia with acute hypoxic respiratory failure and C- diff and was admitted for further evaluation. She has continued to have respiratory failure and required a trach due to prolonged intubation. She was also diagnosed with C-diff and has been being treated with ABX. Past Medical/Family/Social History: Family History: Unchanged from Admission Social History: Unchanged from Admission Past Medical History: Unchanged from Admission Objective: Active Medications: Fentanyl Citrate (Fentanyl*) 50 mcg IV SLOW PU Q4H PRN Reason: PAIN - BREAKTHROUGH Furosemide (Lasix Iv*) 20 mg IV DAILY [facility] Heparin Sodium (Porcine) (Heparin Flush Picc/Ml/Cvc(*)) 1 - 3 ml FLUSH 0600, 1800 [facility]; Protocol Hydralazine HCl (Apresoline Iv*) 10 mg IV SLOW PU Q6H PRN Reason: BLOOD PRESSURE Acetaminophen (Tylenol Adult Liq*) 650 mg FEED TUBE Q6H PRN Reason: FEVER/PAIN Albuterol/Ipratropium (Duoneb (Albuterol 2.5 Mg/Ipratropium 0.5 Mg)) 1 neb INH RT.Q3FE-AEUSG AWAKE PRN Reason: SOB/WHEEZING Amlodipine Besylate (Norvasc Tab*) 10 mg PO DAILY [facility] Atenolol (Tenormin Tab*) 25 mg PO BID [facility] Bacitracin (Bacitracin Ointment*) 1 applic TOPICAL BID [facility] Citalopram Hydrobromide (Celexa Tab*) 20 mg PO DAILY [facility] Dextrose (D50w Syringe 50 Ml*) 12.5 gm IV PUSH .FOR FS < 60 - SS PRN Reason: FS < 60 Enoxaparin Sodium (Lovenox(*)) 75 mg SUBCUT Q12H [facility] Hydrocortisone (Hytone Cream 1%*) 1 applic TOPICAL BID PRN Reason: HEMORRHOIDS Insulin Human Lispro (Humalog*) 0 units SUBCUT FS Q6 ICU [facility]; Protocol Lactobacillus Rhamnosus (Lactobacillus Acidophilus*) 1 tab PO DAILY [facility] Levothyroxine Sodium (Synthroid Tab*) 150 mcg NG TUBE DAILY@0600 [facility] Lisinopril (Prinivil Tab*) 40 mg PO DAILY [facility] Metronidazole/Sodium Chloride (Flagyl 500 Mg Ivpb*) 500 mg in 100 mls @ 100 mls /hr IVPB Q8H [facility] Stop: 08/10/18 19:59 Non-Formulary Medication (Non Formulary Med(Nf)) 1 dose G TUBE DAILY [facility] Nystatin (Nystatin Cream*) 1 applic TOPICAL TID [facility] Polyvinyl Alcohol (Polyvinyl Alcohol 1.4% Opth*) 1 drop BOTH EYES Q2H PRN Reason: DRY EYE Potassium Chloride (Klor-Con Liquid*) 40 meq PO DAILY [facility] Vancomycin HCl (Firvanq*) 125 mg G TUBE 0900,1300,1700,2100 [facility] Stop: 08/10/18 23:59 Vital Signs: 08/09/18 11:00 Temperature 99.3 F Temperature Walsh Probe Source Pulse Rate 70 Heart Rate 70 Respiratory 24 Rate Blood Pressure 170/66 (mmHg) Blood Pressure 82 Mean O2 Sat by Pulse 98 Oximetry Exam: General: Patient is seen laying in bed in no acute distress. Neurological: Alert and Unable to determine orientation. Skin: Left anterior thigh: Healing blisters (caused by trauma to the skin from tape), the cluster measures 6 cm x 11 cm x 0.1 cm in total area. Left lower back: Healing superficial abrasions. Wound beds pink. Buttocks and upper posterior thighs with moisture associated skin injury. Healing excoriated skin is now starting to dry and become flaky. Left ischium with stage 2 pressure injury and surrounding skin with superficial open area from a shearing injury and removal of Optifoam dressing - 5cm x 2 cm x 0.1 cm. Wound base is pink granulation tissue. Data: Labs: 08/02/18 08/07/18 08/08/18 05:45 05:45 09:50 WBC 9.5 Hgb 9.0 L Hct 27 L Plt Count 402 Sodium 145 Potassium 3.5 Chloride 113 H Carbon Dioxide 29 BUN 21 Creatinine 0.34 L Glucose 128 H Total Protein 5.5 L Albumin 2.3 L Assessment/Plan: Ms. Davis is a 78 yo female with PMH significant for HTN, headaches, constipation, chronic low back pain, shoulder pain, DM, hypothyroidism, and thyroid cancer who presented to the emergency room with complaints of nausea, vomiting, chest pain and shortness of breath, she was found to have pneumonia with acute hypoxic respiratory failure and C-diff. 1. Moisture associated skin injury secondary to incontinence: Patient has a flexiseal and urinary catheter. Continue barrier cream, flexiseal and urinary catheter. 2. Stage 2 pressure injury to the left ischium: Continue barrier cream and frequent turning. Do not recommend use of Optifoam as it is causing further damage to the surrounding skin. 3. Blisters to anterior left thigh secondary to tape from a central line. These have been open for at least a week. Continue xeroform and ABD pad. Do not apply tape to the skin. VTE PPX: Lovenox. Diet: NPO. Tube feeding diet. Code Status: Full Code. Disposition: Inpatient. Disposition per Primary Medicine Team. Time Spent: 20 Minutes was spent providing direct patient care, including removal of dressings, assessment and photography of wounds. Attending: Dr. Yadira Kim MD
[2018-08-09] MEDS: FIBER SUPPLEMENT G TUBE SCH (15:01)
[2018-08-09] MEDS: fentaNYL* 50 MCG/ML 2 ML VIAL (100 MCG VIAL) IV SLOW PU PRN (18:26)
[2018-08-10] MEDS: metroNIDAZOLE IV 500 MG/100ML* 500 MG/100 ML BAG IVPB SCH ×3 (03:51→21:09)
[2018-08-10 04:27] LABS: Calcium 8.1 mg/dL (8.6-10.3); Potassium 2.8 mmol/L (3.5-5.0)
[2018-08-10 04:30] LABS: BUN/Creatinine Ratio 36.1 (8-20); EGFR African American 210.4 (>60); EGFR Non-African American 173.9 (>60)
[2018-08-10] MEDS: Insulin LISPRO* 1 UNITS UNIT SUBCUT SCH ×3 (06:09→18:24)
[2018-08-10] MEDS: Levothyroxine TAB* 150 MCG TAB NG TUBE SCH (06:17)
[2018-08-10] MEDS ORDERED: Potassium Chloride LIQUID* 20 MEQ PACKET PO ONE (09:08)
[2018-08-10] MEDS: Enoxaparin(*) 80 MG/0.8 ML SYR SUBCUT SCH ×2 (09:23→21:09)
--- NOTE | 2018-08-10 09:23 | PN ---
Date of Service: 08/10/18 Critical Care Services: 78 F with hx/o Thyroid Ca s/p resection and XRT, chronic pain, AF, s/p PPM for arrhythmias, with prolonged mechanical ventilation and recurrent re-intubations Current complains:communicates with facial gestures and head nodding. She denies fever, pain. 24 hours/overnight events: Has been on Trach mask for about 24 hours without any complains, TF via peg tube started last night 07/17/18: DOA 08/04/18: Tracheostomy 08/07:Peg tube placment Vital Signs: Temp Pulse Resp BP SpO2 FiO2 99.3 F 70 22 144/63 95 40 08/10/18 08:27 08/10/18 08:27 08/10/18 08:27 08/10/18 08:27 08/10/18 08:27 08/10 08:00 Physical Exam: Gen: NAD. HEENT: Trach stoma intact with tracheostomy in place. NCAT, PERRL Lungs: clear to auscultation bilaterally Cardiac: S1S2, RRR Abdomen: SNTND, +BS. PEG tube placement in the LUQ- grossly no concerns Extremities: B/L UE and LE 3+ edema including the dorsum of hands Neuro:Non focal, AA Fluid Balance (Past 24 Hours): I= O= Net Intake & Output 08/08/18 08/09/18 08/10/18 08/11/18 06:59 06:59 06:59 06:59 Intake Total 975 386 559 Output Total 3135 1905 2260 175 Balance -2160 -1519 -1701 -175 Weight 194 lb 0.108 oz 190 lb 9.561 oz Intake: IV Fluids 537 276 301 ABX - FLAGYL 121 171 Antibiotics 211 NS w meds 194 155 130 Normal Saline 132 IVPB 110 177 ABX - FLAGYL 110 177 Medicated IV 46 CC - Dexmedetomidine/ 46 Precedex Oral 0 0 Tube Feeding 230 0 Albumin 162 81 NG Tube Irrigate Amount 0 0 Output: Walsh 2335 1705 2060 175 Liquid Stool 800 200 200 Tube Feeding Residual 0 0 Amount Wasted ADLs: Meal Record Start: 07/17/18 17: 39 Freq: Status: Active Protocol: Created 07/17/18 17:39 System (Rec: 07/17/18 17:39 System ICU-C20) Document 07/17/18 18:00 GIZ4916 (Rec: 07/17/18 18:09 HLR5864 ICU-C12) Document 07/18/18 09:00 FPY4647 (Rec: 07/18/18 10:08 ZKX0672 ICU-C15) Document 07/18/18 13:00 SCV1522 (Rec: 07/18/18 13:24 QTZ6092 ICU-C15) Document 07/18/18 18:00 UEL2500 (Rec: 07/18/18 18:15 DFZ6934 ICU-C15) Document 07/19/18 09:00 PII9228 (Rec: 07/19/18 09:05 SGC7531 ICU-M27) Document 07/19/18 12:57 WCI4486 (Rec: 07/19/18 12:58 CAC1129 ICU-L03) Document 07/19/18 18:00 HON7378 (Rec: 07/19/18 18:32 TXN3224 ICU-C15) Document 07/20/18 09:00 GSJ9565 (Rec: 07/20/18 09:21 IDN5321 ICU-C15) Document 07/20/18 13:00 DYW3965 (Rec: 07/20/18 13:27 AYI3400 ICU-C15) Document 07/20/18 17:06 UXE8845 (Rec: 07/20/18 17:06 RSS8983 ICU-C15) Document 07/21/18 08:55 GHS4571 (Rec: 07/21/18 08:55 TCT9651 ICU-M27) Document 07/21/18 12:37 MXN0059 (Rec: 07/21/18 12:37 RPU0739 ICU-C12) Document 07/21/18 17:01 GQZ1832 (Rec: 07/21/18 17:01 NFF3157 ICU-C12) Document 07/22/18 09:00 ZTM1017 (Rec: 07/22/18 09:11 QWZ0504 ICU-M27) Document 07/22/18 13:20 DUR8992 (Rec: 07/22/18 13:20 GEU9478 ICU-C12) Document 07/22/18 17:04 VRE2030 (Rec: 07/22/18 17:04 NBN7548 ICU-C12) Document 07/23/18 09:00 QPE2881 (Rec: 07/23/18 09:39 XGG8950 ICU-C12) Document 07/23/18 13:00 JSC5359 (Rec: 07/23/18 13:43 NAY2277 ICU-C12) Document 07/24/18 09:00 FWR8488 (Rec: 07/24/18 09:12 RZK1938 ICU-C12) Document 07/24/18 13:00 SLH6525 (Rec: 07/24/18 13:02 AUH3601 ICU-C12) Document 07/24/18 18:00 UKR3362 (Rec: 07/24/18 18:02 JBK9392 ICU-M27) Intake and Output Start: 07/17/18 15: 30 Freq: Status: Active Protocol: Created 07/17/18 15:30 System (Rec: 07/17/18 15:30 System EDRM-C04) Intake and Output Start: 07/17/18 17: 39 Freq: Q4HR Status: Active Protocol: Created 07/17/18 17:39 System (Rec: 07/17/18 17:39 System ICU-C20) Document 07/17/18 18:00 WCF1268 (Rec: 07/17/18 18:09 JKZ6189 ICU-C12) Document 07/17/18 20:00 TPH3238 (Rec: 07/17/18 21:35 JRN8125 ICU-C12) Document 07/17/18 21:00 AUU9950 (Rec: 07/17/18 22:27 ZSC1106 ICU-M27) Document 07/17/18 22:00 ZEX3856 (Rec: 07/18/18 00:01 CNR7199 ICU-C12) Document 07/17/18 23:00 CXW1855 (Rec: 07/18/18 00:01 TFD1446 ICU-C12) Document 07/18/18 00:00 LYP4435 (Rec: 07/18/18 02:55 OHZ2606 ICU-C12) Document 07/18/18 01:00 PAO9682 (Rec: 07/18/18 02:55 ELW0615 ICU-C12) Document 07/18/18 02:00 WAL7190 (Rec: 07/18/18 02:55 CSU8213 ICU-C12) Document 07/18/18 03:00 NTD4258 (Rec: 07/18/18 03:16 RWC0020 ICU-C12) Document 07/18/18 04:00 WUI5680 (Rec: 07/18/18 05:15 LFO9080 ICU-M27) Document 07/18/18 06:30 QUL9509 (Rec: 07/18/18 06:30 AWD0597 ICU-M27) Document 07/18/18 07:00 RSS3522 (Rec: 07/18/18 07:22 TJK7627 ICU-M27) Document 07/18/18 08:00 IOW7196 (Rec: 07/18/18 09:14 NDQ3256 ICU-M27) Document 07/18/18 09:00 OMA9830 (Rec: 07/18/18 09:15 CIJ3407 ICU-M27) Document 07/18/18 10:00 DIK0254 (Rec: 07/18/18 10:08 MZS5362 ICU-C15) Document 07/18/18 11:00 WDB1232 (Rec: 07/18/18 11:07 MTJ1280 ICU-M27) Document 07/18/18 12:00 AEI4527 (Rec: 07/18/18 12:25 MNV5854 ICU-C15) Document 07/18/18 13:00 TUU9942 (Rec: 07/18/18 13:24 OSC3226 ICU-C15) Document 07/18/18 14:00 EHN9888 (Rec: 07/18/18 14:14 ZJS6787 ICU-C15) Document 07/18/18 15:00 RVC0734 (Rec: 07/18/18 15:13 USU1869 ICU-C15) Document 07/18/18 16:00 EDP8953 (Rec: 07/18/18 17:41 WZC1133 ICU-C15) Document 07/18/18 17:00 FPJ4952 (Rec: 07/18/18 17:58 TFJ8536 ICU-C15) Document 07/18/18 18:00 GHO8612 (Rec: 07/18/18 18:15 ZNM8067 ICU-C15) Document 07/18/18 21:55 HPL8156 (Rec: 07/18/18 21:55 OQK0122 ICU-M27) Document 07/18/18 23:00 FEV4195 (Rec: 07/18/18 23:31 FNW6792 ICU-C15) Document 07/18/18 23:59 BRN7247 (Rec: 07/18/18 23:59 ANP4560 ICU-M27) Document 07/19/18 02:58 MDJ6250 (Rec: 07/19/18 02:58 AHD2036 ICU-C14) Document 07/19/18 03:00 WCG3976 (Rec: 07/19/18 03:15 OLJ1547 ICU-M27) Document 07/19/18 04:00 TOK8963 (Rec: 07/19/18 05:28 QOM0562 ICU-C15) Document 07/19/18 05:00 BMD1639 (Rec: 07/19/18 05:32 TBS9951 ICU-C15) Document 07/19/18 06:00 JTL0581 (Rec: 07/19/18 06:35 PNL2748 ICU-C15) Document 07/19/18 07:00 VNF7315 (Rec: 07/19/18 09:03 GDE9889 ICU-M27) Document 07/19/18 08:00 UWV3665 (Rec: 07/19/18 09:03 NZM2870 ICU-M27) Document 07/19/18 09:00 ATJ4647 (Rec: 07/19/18 09:03 EVD4494 ICU-M27) Document 07/19/18 10:00 UTK5411 (Rec: 07/19/18 10:41 KZR0360 ICU-M27) Document 07/19/18 10:45 AKZ6949 (Rec: 07/19/18 10:45 KMT1438 ICU-M27) Document 07/19/18 11:00 KTF6549 (Rec: 07/19/18 11:04 KEJ0464 ICU-M27) Document 07/19/18 12:00 DAG8546 (Rec: 07/19/18 12:12 FAJ5168 ICU-M27) Document 07/19/18 12:59 KAO1846 (Rec: 07/19/18 12:59 JPN7138 ICU-L03) Document 07/19/18 13:56 FOR6349 (Rec: 07/19/18 13:57 ZUT5909 ICU-L03) Document 07/19/18 14:54 AQX7478 (Rec: 07/19/18 14:54 TIU9387 ICU-L03) Document 07/19/18 16:00 XGR6869 (Rec: 07/19/18 16:42 QHH0447 ICU-C15) Document 07/19/18 17:00 FHS5436 (Rec: 07/19/18 18:31 VHF9108 ICU-C15) Document 07/19/18 18:00 RQU1755 (Rec: 07/19/18 18:32 PZZ7761 ICU-C15) Document 07/19/18 19:00 OUM5941 (Rec: 07/19/18 19:16 GQC8289 ICU-M27) Document 07/19/18 21:00 KZQ2344 (Rec: 07/19/18 21:27 VOF0115 ISDECO-M03 ) Document 07/19/18 22:00 QOP6953 (Rec: 07/19/18 22:13 TPN3917 ICU-L03) Document 07/19/18 22:54 GTW6719 (Rec: 07/19/18 22:54 ZFX4168 ICU-M27) Document 07/20/18 00:00 YKB7714 (Rec: 07/20/18 01:34 MNH8547 ICU-L03) Document 07/20/18 01:00 HRA1760 (Rec: 07/20/18 01:34 JZH9199 ICU-L03) Document 07/20/18 02:00 PEH4910 (Rec: 07/20/18 02:07 CAT7675 ICU-L03) Document 07/20/18 03:00 TRX2789 (Rec: 07/20/18 04:37 LWF2724 ICU-L03) Document 07/20/18 04:00 ZBL5774 (Rec: 07/20/18 04:37 FFZ2403 ICU-L03) Document 07/20/18 05:00 YDP5977 (Rec: 07/20/18 05:12 JMX2577 ICU-L03) Document 07/20/18 06:00 IPW5049 (Rec: 07/20/18 06:07 JBK2818 ICU-M27) Document 07/20/18 07:00 HYN9968 (Rec: 07/20/18 07:32 VAP9575 ICU-C15) Document 07/20/18 08:00 DEG7305 (Rec: 07/20/18 09:00 PBV8703 ICU-C15) Document 07/20/18 09:00 GPA3985 (Rec: 07/20/18 09:19 GLA0511 ICU-C15) Document 07/20/18 10:00 XYP3623 (Rec: 07/20/18 10:46 FSI3378 ICU-C15) Document 07/20/18 10:47 DMJ8393 (Rec: 07/20/18 10:47 HYT3779 ICU-C15) Document 07/20/18 12:17 MCK8614 (Rec: 07/20/18 12:17 CFA9800 ICU-C15) Document 07/20/18 13:00 LXS7070 (Rec: 07/20/18 13:27 JRE8823 ICU-C15) Document 07/20/18 14:16 JCS3025 (Rec: 07/20/18 14:16 IRK1064 ICU-M27) Document 07/20/18 15:00 PLP6898 (Rec: 07/20/18 15:03 ZLF0056 ICU-M27) Document 07/20/18 16:14 SRE1024 (Rec: 07/20/18 16:14 MOC5948 ICU-M27) Document 07/20/18 17:07 BUS3410 (Rec: 07/20/18 17:07 OGH5133 ICU-C15) Document 07/20/18 18:20 NRK0558 (Rec: 07/20/18 18:20 FFZ9400 ISDECO-M03 ) Document 07/20/18 19:00 PAG9262 (Rec: 07/20/18 21:34 WQQ8194 ICU-C15) Document 07/20/18 21:00 JLF2778 (Rec: 07/20/18 21:35 KOE6038 ICU-C15) Document 07/20/18 22:00 EKD5166 (Rec: 07/20/18 22:12 RPV1882 ICU-C15) Document 07/20/18 23:00 DJK1576 (Rec: 07/20/18 23:13 BZA1447 ICU-C15) Document 07/21/18 01:00 BUQ7879 (Rec: 07/21/18 01:35 SOY1822 ICU-C15) Document 07/21/18 02:00 YAO8761 (Rec: 07/21/18 02:14 NGE5853 ICU-C15) Document 07/21/18 03:00 MMY1994 (Rec: 07/21/18 03:44 GEA9220 ICU-C25) Document 07/21/18 05:00 RZM7995 (Rec: 07/21/18 05:05 UHF7847 ICU-C15) Document 07/21/18 06:00 JKX8663 (Rec: 07/21/18 06:23 IQZ5904 ICU-C15) Document 07/21/18 07:00 PGH7617 (Rec: 07/21/18 07:20 SED2273 ICU-C12) Document 07/21/18 08:11 YHI7427 (Rec: 07/21/18 08:11 DKV7293 ICU-M27) Document 07/21/18 08:54 YDP7484 (Rec: 07/21/18 08:55 AGW3432 ICU-M27) Document 07/21/18 10:00 ASD9241 (Rec: 07/21/18 10:03 NFP5853 ICU-C12) Document 07/21/18 10:59 PRF1308 (Rec: 07/21/18 10:59 IVD0139 ICU-C12) Document 07/21/18 12:33 RPS5146 (Rec: 07/21/18 12:33 YTJ2952 ICU-C12) Document 07/21/18 13:06 TLU4404 (Rec: 07/21/18 13:06 HXI2539 ICU-C12) Document 07/21/18 14:00 TUW6087 (Rec: 07/21/18 14:06 ENX6591 ICU-C12) Document 07/21/18 16:00 IGZ7181 (Rec: 07/21/18 16:01 FNZ6491 ICU-C12) Document 07/21/18 16:54 YLF8751 (Rec: 07/21/18 16:54 AQI3318 ICU-C12) Document 07/21/18 18:00 PCU6034 (Rec: 07/21/18 18:02 ASF2511 ICU-C12) Document 07/21/18 19:00 FER4577 (Rec: 07/21/18 19:56 AQC9903 ICU-C15) Document 07/21/18 20:00 LEC8673 (Rec: 07/21/18 21:16 HNU7805 ICU-C15) Document 07/21/18 21:00 BKY8345 (Rec: 07/21/18 21:16 POM7359 ICU-C15) Document 07/21/18 22:00 OEW0141 (Rec: 07/21/18 22:01 FZR0495 ICU-C15) Document 07/21/18 23:00 VCW4278 (Rec: 07/22/18 00:28 IBJ0889 ICU-C15) Document 07/22/18 00:00 BGE0364 (Rec: 07/22/18 00:28 QPT1811 ICU-C15) Document 07/22/18 01:00 SXN0080 (Rec: 07/22/18 01:29 JLM7716 ICU-C15) Document 07/22/18 02:00 WTH1950 (Rec: 07/22/18 03:53 OOS8077 ICU-C15) Document 07/22/18 03:00 PAE7626 (Rec: 07/22/18 03:54 GLO4095 ICU-C15) Document 07/22/18 04:00 KQH1225 (Rec: 07/22/18 05:40 GRF0047 ICU-M27) Document 07/22/18 05:00 DBI8242 (Rec: 07/22/18 05:40 KMG1394 ICU-M27) Document 07/22/18 05:39 KNW7778 (Rec: 07/22/18 05:40 UGU9501 ICU-M27) Document 07/22/18 07:56 REG0491 (Rec: 07/22/18 07:57 LTC1588 ICU-M27) Document 07/22/18 09:00 LJJ2336 (Rec: 07/22/18 09:11 AXD1042 ICU-M27) Document 07/22/18 09:58 BDQ1807 (Rec: 07/22/18 09:58 EWL9516 ICU-M27) Document 07/22/18 11:00 CUA7154 (Rec: 07/22/18 11:06 BAR2610 ICU-C12) Document 07/22/18 12:35 JKY7158 (Rec: 07/22/18 12:35 PPI0675 ICU-C12) Document 07/22/18 13:31 SVZ7603 (Rec: 07/22/18 13:31 KYG1845 ICU-C12) Document 07/22/18 14:20 XJM0600 (Rec: 07/22/18 14:20 TPK2868 ICU-M27) Document 07/22/18 15:05 REG8225 (Rec: 07/22/18 15:05 NRB4383 ICU-C12) Document 07/22/18 15:58 PFO5505 (Rec: 07/22/18 15:58 RVL1675 ICU-C12) Document 07/22/18 17:02 APV4790 (Rec: 07/22/18 17:03 CZS8250 ICU-C12) Document 07/22/18 18:14 EFF7925 (Rec: 07/22/18 18:15 BVN3805 ICU-C12) Document 07/22/18 19:00 IBQ3923 (Rec: 07/22/18 20:14 SCJ4717 ICU-C15) Document 07/22/18 20:00 RQJ1281 (Rec: 07/22/18 20:14 UUR8515 ICU-C15) Document 07/22/18 21:00 WLF3196 (Rec: 07/22/18 21:06 JSG5217 ICU-C15) Document 07/22/18 22:00 ZXN8634 (Rec: 07/22/18 22:16 RST4077 ICU-C15) Document 07/22/18 23:00 HOK3532 (Rec: 07/22/18 23:54 EMN4318 ICU-C15) Document 07/22/18 23:54 LRS3125 (Rec: 07/22/18 23:54 ABZ7106 ICU-C15) Document 07/23/18 01:00 LUF9882 (Rec: 07/23/18 03:26 BFI7398 ICU-M27) Document 07/23/18 02:00 FQM5213 (Rec: 07/23/18 03:26 CDU4793 ICU-M27) Document 07/23/18 03:00 BFW4529 (Rec: 07/23/18 03:26 DZK5344 ICU-M27) Document 07/23/18 04:00 UQO6768 (Rec: 07/23/18 05:11 JVU8919 ICU-C15) Document 07/23/18 05:00 XBT2792 (Rec: 07/23/18 05:11 FUN6451 ICU-C15) Document 07/23/18 06:00 PXW6791 (Rec: 07/23/18 06:30 LUP6268 ICU-C15) Document 07/23/18 07:00 OOD1530 (Rec: 07/23/18 08:18 DWN3767 ICU-C12) Document 07/23/18 08:00 MCW5554 (Rec: 07/23/18 08:57 RZK5552 ICU-M27) Document 07/23/18 08:00 DEL3841 (Rec: 07/23/18 08:57 XIJ8074 ICU-M27) Document 07/23/18 09:00 STI7025 (Rec: 07/23/18 09:44 BPW4422 ICU-C12) Document 07/23/18 10:00 HVL5635 (Rec: 07/23/18 10:05 KXH5526 ICU-M27) Document 07/23/18 11:00 FVS2338 (Rec: 07/23/18 11:11 ICU7999 ICU-C12) Document 07/23/18 12:00 CIT6469 (Rec: 07/23/18 12:11 DRK3464 ICU-C12) Document 07/23/18 13:00 IXK1891 (Rec: 07/23/18 13:51 OUI9328 ICU-C12) Document 07/23/18 14:00 PUK2640 (Rec: 07/23/18 17:04 UXM3996 ICU-M27) Document 07/23/18 15:00 ADB3821 (Rec: 07/23/18 17:04 AJR3021 ICU-M27) Document 07/23/18 16:00 IEH1989 (Rec: 07/23/18 17:04 WCT8225 ICU-M27) Document 07/23/18 17:00 RIF7628 (Rec: 07/23/18 17:04 MUD1762 ICU-M27) Document 07/23/18 17:08 DWV7361 (Rec: 07/23/18 17:09 CKY0555 ICU-M27) Document 07/23/18 18:00 AIJ4397 (Rec: 07/23/18 18:58 UHX3610 ICU-C12) Document 07/23/18 19:00 PCS3130 (Rec: 07/23/18 19:01 MVV8833 ICU-C12) Document 07/23/18 20:00 TJU0755 (Rec: 07/23/18 20:03 FEL0616 ICU-M27) Document 07/23/18 21:00 CCH3576 (Rec: 07/23/18 22:20 YIO7246 ICU-M27) Document 07/23/18 22:00 WAI6477 (Rec: 07/23/18 22:20 OHK8637 ICU-M27) Document 07/23/18 23:00 NUU2555 (Rec: 07/23/18 23:12 FLR3374 ICU-C25) Document 07/24/18 00:00 XLO0296 (Rec: 07/24/18 00:39 PDY5421 ICU-C25) Document 07/24/18 01:00 OHX8299 (Rec: 07/24/18 01:04 ZVL8390 ICU-M27) Document 07/24/18 02:00 KGZ1464 (Rec: 07/24/18 03:10 XQT1996 ICU-C25) Document 07/24/18 03:00 HDK6772 (Rec: 07/24/18 03:10 TGO5360 ICU-C25) Document 07/24/18 04:00 MMZ3709 (Rec: 07/24/18 04:06 QBM1537 ICU-C25) Document 07/24/18 05:00 QPQ5625 (Rec: 07/24/18 05:19 ZIO0168 ICU-C25) Document 07/24/18 06:00 FVA4712 (Rec: 07/24/18 06:14 BUV5964 ICU-M27) Document 07/24/18 07:00 YDK6044 (Rec: 07/24/18 07:19 ZSL5892 ICU-C25) Document 07/24/18 08:00 YWZ7659 (Rec: 07/24/18 09:00 NHE1731 ICU-C12) Document 07/24/18 09:00 KZB3901 (Rec: 07/24/18 09:00 NIJ7317 ICU-C12) Document 07/24/18 10:00 XIC7814 (Rec: 07/24/18 11:47 FXM7343 ICU-C12) Document 07/24/18 11:00 KHZ5168 (Rec: 07/24/18 11:47 BYN0926 ICU-C12) Document 07/24/18 12:00 TEC7757 (Rec: 07/24/18 12:12 WHH9268 ICU-C12) Document 07/24/18 13:00 NMP2343 (Rec: 07/24/18 13:01 ZFI9963 ICU-C12) Document 07/24/18 14:00 YZY9000 (Rec: 07/24/18 14:07 DJP7459 ICU-C12) Document 07/24/18 14:14 RRU7784 (Rec: 07/24/18 14:14 QVI9237 ICU-C12) Document 07/24/18 15:00 OCM7580 (Rec: 07/24/18 15:04 HSX6835 ICU-C12) Document 07/24/18 16:34 MRZ8426 (Rec: 07/24/18 16:34 NZO9376 ICU-C12) Document 07/24/18 17:00 IHD0740 (Rec: 07/24/18 17:52 ZCJ0350 ICU-M27) Document 07/24/18 17:52 WVH3657 (Rec: 07/24/18 17:52 QJD6013 ICU-M27) Document 07/24/18 19:00 QCD0733 (Rec: 07/24/18 21:01 OKY5863 ICU-C15) Document 07/24/18 20:00 EMP0824 (Rec: 07/24/18 21:01 UUM1412 ICU-C15) Document 07/24/18 21:00 OEH3015 (Rec: 07/24/18 22:21 ZGQ8489 ICU-C15) Document 07/24/18 22:00 SBM1026 (Rec: 07/24/18 22:21 HCB7086 ICU-C15) Document 07/24/18 23:00 WLM9746 (Rec: 07/24/18 23:05 VYC2028 ICU-C15) Document 07/25/18 00:00 KGY7114 (Rec: 07/25/18 00:02 MUU7460 ICU-C15) Document 07/25/18 01:00 LGI3594 (Rec: 07/25/18 01:21 FSJ8781 ICU-C15) Document 07/25/18 02:00 UIY8337 (Rec: 07/25/18 02:51 LVG4076 ICU-C15) Document 07/25/18 03:00 DSB8085 (Rec: 07/25/18 04:28 LLJ3101 ICU-C15) Document 07/25/18 04:00 MCC5732 (Rec: 07/25/18 04:28 YXC9873 ICU-C15) Document 07/25/18 05:00 QHF7959 (Rec: 07/25/18 05:03 YCI0421 ICU-C15) Document 07/25/18 06:00 TJO5461 (Rec: 07/25/18 06:26 JOQ4915 ICU-M27) Document 07/25/18 06:52 TOD7842 (Rec: 07/25/18 06:52 ONR1690 ICU-L03) Document 07/25/18 07:32 CUO3283 (Rec: 07/25/18 07:32 RYP6145 ICU-M27) Document 07/25/18 08:00 JGY8792 (Rec: 07/25/18 08:11 GHK3637 ICU-C25) Document 07/25/18 09:00 LLB7159 (Rec: 07/25/18 09:02 ZXV9467 ICU-M27) Document 07/25/18 10:00 UXH1475 (Rec: 07/25/18 10:33 IVE5460 ICU-M27) Document 07/25/18 12:00 IDO3958 (Rec: 07/25/18 12:28 WIH4502 ICU-M27) Document 07/25/18 13:00 ZKQ7149 (Rec: 07/25/18 13:27 QES2013 ICU-C06) Document 07/25/18 14:00 IKR8523 (Rec: 07/25/18 14:50 QUZ0507 ICU-M27) Document 07/25/18 15:00 PUW0315 (Rec: 07/25/18 15:25 VEE9657 ICU-C25) Document 07/25/18 16:48 UXA4203 (Rec: 07/25/18 16:48 XXX1363 ICU-M27) Document 07/25/18 18:03 JHU3172 (Rec: 07/25/18 18:03 IGR4911 ICU-C25) Document 07/25/18 19:00 SHO4520 (Rec: 07/25/18 19:33 QCF9492 ICU-M27) Document 07/25/18 20:00 MYA4182 (Rec: 07/25/18 20:03 UTK6841 ICU-M27) Document 07/25/18 21:00 BCG9250 (Rec: 07/25/18 21:32 CXS7139 ICU-C15) Document 07/25/18 22:00 XDN2157 (Rec: 07/25/18 22:04 PYY8082 ICU-C15) Document 07/25/18 23:00 HUW4862 (Rec: 07/25/18 23:18 ARA2071 ICU-C15) Document 07/26/18 00:00 GOZ5853 (Rec: 07/26/18 00:03 PUR8825 ICU-M27) Document 07/26/18 01:00 QXE7522 (Rec: 07/26/18 01:05 KID0872 ICU-C15) Document 07/26/18 02:00 UEP7915 (Rec: 07/26/18 02:18 ASX7209 ICU-C15) Document 07/26/18 03:00 DJA6121 (Rec: 07/26/18 03:05 EDG1178 ICU-C15) Document 07/26/18 04:00 ASZ7834 (Rec: 07/26/18 05:10 DTD6174 ICU-M27) Document 07/26/18 05:00 HFK4471 (Rec: 07/26/18 05:10 NDO7622 ICU-M27) Document 07/26/18 06:00 RBR5618 (Rec: 07/26/18 06:09 SJA5203 ICU-C15) Document 07/26/18 07:00 SNT5084 (Rec: 07/26/18 07:24 KMI0617 ICU-C12) Document 07/26/18 08:00 YWH2970 (Rec: 07/26/18 09:07 OXY4805 ICU-C12) Document 07/26/18 09:00 LXL1932 (Rec: 07/26/18 09:07 MFR5275 ICU-C12) Document 07/26/18 10:00 NGF0041 (Rec: 07/26/18 11:00 EEH6599 ICU-C12) Document 07/26/18 11:00 ZWP9545 (Rec: 07/26/18 11:00 BNZ1612 ICU-C12) Document 07/26/18 15:00 MID6341 (Rec: 07/26/18 15:08 VJL8242 ICU-C12) Document 07/26/18 16:00 KWZ6718 (Rec: 07/26/18 16:04 UZI2551 ICU-C12) Document 07/26/18 16:04 CBV7984 (Rec: 07/26/18 16:05 HRD7663 ICU-C12) Document 07/26/18 17:00 KSV3007 (Rec: 07/26/18 17:50 WUI2074 ICU-C12) Document 07/26/18 17:50 DEJ2297 (Rec: 07/26/18 17:50 KCA5269 ICU-C12) Document 07/26/18 19:00 MNI8766 (Rec: 07/26/18 20:27 ITO3925 ICU-M27) Document 07/26/18 20:00 YMM8337 (Rec: 07/26/18 20:27 ZCK8782 ICU-M27) Document 07/26/18 21:00 RZY3881 (Rec: 07/26/18 22:34 BPE2183 ICU-C25) Document 07/26/18 22:00 KQE7621 (Rec: 07/26/18 22:34 YPX3750 ICU-C25) Document 07/26/18 23:00 UQM0237 (Rec: 07/26/18 23:11 WHA8523 ICU-C25) Document 07/27/18 00:00 VHB7669 (Rec: 07/27/18 01:21 UUC8390 ICU-C25) Document 07/27/18 01:00 JVJ4123 (Rec: 07/27/18 01:21 PTD5229 ICU-C25) Document 07/27/18 02:00 RIA4628 (Rec: 07/27/18 06:14 YQD3531 ICU-C25) Document 07/27/18 03:00 CYY8498 (Rec: 07/27/18 06:14 ARY0825 ICU-C25) Document 07/27/18 04:00 PMJ9583 (Rec: 07/27/18 06:14 CBC3725 ICU-C25) Document 07/27/18 05:00 HRS0323 (Rec: 07/27/18 06:14 QFD9879 ICU-C25) Document 07/27/18 06:00 RNP0514 (Rec: 07/27/18 06:14 IVT0488 ICU-C25) Document 07/27/18 07:00 JNY1961 (Rec: 07/27/18 07:48 PSE1819 ICU-M27) Document 07/27/18 08:10 LTC0511 (Rec: 07/27/18 10:26 UXK0808 ICU-C20) Document 07/27/18 09:00 JIE3124 (Rec: 07/27/18 10:28 URB5367 ICU-C20) Document 07/27/18 10:00 WPT3076 (Rec: 07/27/18 12:34 ANM4491 ICU-C12) Document 07/27/18 11:00 CIU2925 (Rec: 07/27/18 12:34 CVB4037 ICU-C12) Document 07/27/18 12:00 ZZN1195 (Rec: 07/27/18 13:27 PNL3482 ICU-C12) Document 07/27/18 13:00 EVM4829 (Rec: 07/27/18 13:29 FCR0694 ICU-C12) Document 07/27/18 14:00 BHQ8212 (Rec: 07/27/18 15:41 NAU2499 ICU-C12) Document 07/27/18 15:00 BIX2755 (Rec: 07/27/18 15:44 TXY9870 ICU-C12) Document 07/27/18 16:14 ZFL2345 (Rec: 07/27/18 16:14 TOG5653 ICU-C12) Document 07/27/18 17:00 JYC5536 (Rec: 07/27/18 18:39 DNA1479 ICU-C12) Document 07/27/18 18:00 MNU2773 (Rec: 07/27/18 18:40 TPD9045 ICU-C12) Document 07/27/18 19:00 NBC8811 (Rec: 07/27/18 21:29 ZQS5678 ICU-C14) Document 07/27/18 20:00 VPM6344 (Rec: 07/27/18 21:29 IYK4189 ICU-C14) Document 07/27/18 21:00 HFB5558 (Rec: 07/27/18 21:29 FCY0266 ICU-C14) Document 07/27/18 22:00 VBG4239 (Rec: 07/27/18 22:27 MLX0327 ICU-C14) Document 07/27/18 23:00 ZLY9841 (Rec: 07/28/18 05:25 AVA4125 ICU-C14) Document 07/28/18 00:00 STV5689 (Rec: 07/28/18 05:25 SSP2339 ICU-C14) Document 07/28/18 01:00 RJQ4029 (Rec: 07/28/18 05:25 TDN8182 ICU-C14) Document 07/28/18 02:00 ALY5260 (Rec: 07/28/18 05:25 BWJ7402 ICU-C14) Document 07/28/18 03:00 KFK4657 (Rec: 07/28/18 05:25 VRQ5444 ICU-C14) Document 07/28/18 04:00 VYN4482 (Rec: 07/28/18 05:25 IDS5310 ICU-C14) Document 07/28/18 05:00 QWY3839 (Rec: 07/28/18 05:25 UVC2935 ICU-C14) Document 07/28/18 06:00 SOP1904 (Rec: 07/28/18 07:24 CEB1803 ICU-C14) Document 07/28/18 07:00 IRO6377 (Rec: 07/28/18 07:24 XIY4008 ICU-C14) Document 07/28/18 09:00 KTK9015 (Rec: 07/28/18 11:12 OJN6579 ICU-M27) Document 07/28/18 10:00 CBS9530 (Rec: 07/28/18 11:13 LFH7096 ICU-M27) Document 07/28/18 11:00 HUX1549 (Rec: 07/28/18 11:13 BYY6272 ICU-M27) Document 07/28/18 12:00 XBF5345 (Rec: 07/28/18 16:15 GVG6057 ICU-M27) Document 07/28/18 13:00 DZH5646 (Rec: 07/28/18 16:15 DYJ5064 ICU-M27) Document 07/28/18 14:00 NAL3583 (Rec: 07/28/18 16:15 WWV4690 ICU-M27) Document 07/28/18 15:00 KGP9096 (Rec: 07/28/18 16:15 XQL8958 ICU-M27) Document 07/28/18 16:00 XOK7940 (Rec: 07/28/18 17:42 EWC8855 ICU-M27) Document 07/28/18 17:00 YSY6590 (Rec: 07/28/18 17:42 OKB3263 ICU-M27) Document 07/28/18 18:00 YEM1800 (Rec: 07/28/18 18:01 PZA5243 ICU-M27) Document 07/28/18 19:00 RUG9538 (Rec: 07/28/18 19:34 OBZ9138 ICU-C12) Document 07/28/18 20:00 NNY4746 (Rec: 07/28/18 20:35 JFZ9225 ICU-C12) Document 07/28/18 21:00 NLC5575 (Rec: 07/28/18 21:27 SOH0931 ICU-C12) Document 07/28/18 22:00 XXS8628 (Rec: 07/28/18 22:21 KGR7612 ICU-C12) Document 07/28/18 23:00 LRC3421 (Rec: 07/28/18 23:19 KRG5151 ICU-C12) Document 07/29/18 00:00 GKJ7543 (Rec: 07/29/18 00:24 GMT2060 ICU-C12) Document 07/29/18 01:00 NGO8213 (Rec: 07/29/18 01:20 FZE7482 ICU-C12) Document 07/29/18 02:00 INF8951 (Rec: 07/29/18 02:46 HYE8726 ICU-C12) Document 07/29/18 03:00 XGE8812 (Rec: 07/29/18 03:16 MNH2169 ICU-C12) Document 07/29/18 04:00 CHS9352 (Rec: 07/29/18 04:07 IGD0098 ICU-C12) Document 07/29/18 05:00 OIX6597 (Rec: 07/29/18 05:44 VXI4276 ICU-C12) Document 07/29/18 06:00 QMW2077 (Rec: 07/29/18 06:15 QNC8893 ICU-C12) Document 07/29/18 06:16 UUN5337 (Rec: 07/29/18 06:17 QYS4864 ICU-C12) Document 07/29/18 06:17 FLE3538 (Rec: 07/29/18 06:17 JXJ9177 ICU-C12) Document 07/29/18 07:00 JQZ9017 (Rec: 07/29/18 08:17 EYF0061 ICU-M27) Document 07/29/18 08:00 XUC7731 (Rec: 07/29/18 08:17 MDC5390 ICU-M27) Document 07/29/18 09:00 RIL6511 (Rec: 07/29/18 09:11 IAJ8749 ICU-M27) Document 07/29/18 10:00 CRH5678 (Rec: 07/29/18 11:08 DAO1807 ICU-M27) Document 07/29/18 11:00 JZM4314 (Rec: 07/29/18 11:08 HXP6143 ICU-M27) Document 07/29/18 12:00 VBA5650 (Rec: 07/29/18 12:46 HYQ1671 ICU-M27) Document 07/29/18 13:00 DMF8108 (Rec: 07/29/18 13:26 LFB8939 ICU-M27) Document 07/29/18 14:00 QZE4605 (Rec: 07/29/18 14:16 RMX5247 ICU-M27) Document 07/29/18 15:00 ZGU5522 (Rec: 07/29/18 15:40 BZR0601 ICU-M27) Document 07/29/18 16:00 VKN2413 (Rec: 07/29/18 16:42 DBQ4196 ICU-M27) Document 07/29/18 17:00 SLO7355 (Rec: 07/29/18 17:42 MQI5624 ICU-M27) Document 07/29/18 18:00 LLZ9846 (Rec: 07/29/18 18:45 DGG8810 ICU-C15) Document 07/29/18 19:00 CDQ4769 (Rec: 07/29/18 21:09 HCK9762 ICU-C12) Document 07/29/18 20:00 QCC6615 (Rec: 07/29/18 21:09 BGT1770 ICU-C12) Document 07/29/18 21:00 RAX8446 (Rec: 07/29/18 21:09 IFU9477 ICU-C12) Document 07/29/18 22:00 SKT0094 (Rec: 07/29/18 22:21 JEH1937 ICU-C12) Document 07/29/18 23:00 JSA0382 (Rec: 07/30/18 00:45 RKE2935 ICU-C12) Document 07/30/18 00:00 EAP0224 (Rec: 07/30/18 00:45 IUW1903 ICU-C12) Document 07/30/18 01:00 FZP0923 (Rec: 07/30/18 04:53 TOM6395 ICU-C12) Document 07/30/18 02:00 YYD3213 (Rec: 07/30/18 04:53 KRD3917 ICU-C12) Document 07/30/18 03:00 FGK8909 (Rec: 07/30/18 04:53 PZW1589 ICU-C12) Document 07/30/18 04:00 MLE5894 (Rec: 07/30/18 04:53 DZT6579 ICU-C12) Document 07/30/18 04:53 ZQM0445 (Rec: 07/30/18 04:53 VVS2822 ICU-C12) Document 07/30/18 04:54 NJC4626 (Rec: 07/30/18 04:54 ZGK7193 ICU-M22) Document 07/30/18 05:22 XGW9838 (Rec: 07/30/18 05:23 KHG7152 ICU-C12) Document 07/30/18 07:00 FIH1025 (Rec: 07/30/18 08:51 [id number] ICU-C25) Document 07/30/18 08:00 TOF7990 (Rec: 07/30/18 08:51 BGB9854 ICU-C25) Document 07/30/18 09:00 IMQ8521 (Rec: 07/30/18 10:19 SLK7794 ICU-C25) Document 07/30/18 10:00 LAY5869 (Rec: 07/30/18 10:20 KOJ8629 ICU-C25) Document 07/30/18 12:00 QXF1715 (Rec: 07/30/18 14:50 VYX6400 ICU-C25) Document 07/30/18 13:00 OAP9806 (Rec: 07/30/18 14:51 QZQ1226 ICU-C25) Document 07/30/18 15:00 BXV5137 (Rec: 07/30/18 15:07 RSV1112 ICU-C25) Document 07/30/18 16:00 TFP3874 (Rec: 07/30/18 19:13 GTS1231 ICU-C06) Document 07/30/18 17:00 LPL4129 (Rec: 07/30/18 19:13 TVO3771 ICU-C06) Document 07/30/18 19:00 XEM0426 (Rec: 07/30/18 22:52 XGF6424 ICU-C07) Document 07/30/18 23:00 OVR7483 (Rec: 07/30/18 23:28 PVT3893 ICU-C07) Document 07/30/18 23:28 DJC8737 (Rec: 07/30/18 23:34 HPO8518 ICU-C07) Document 07/31/18 01:00 ZQD3272 (Rec: 07/31/18 02:00 IVX8673 ICU-C07) Document 07/31/18 03:48 GMD7328 (Rec: 07/31/18 03:59 BPB4248 ICU-C07) Document 07/31/18 05:21 OLE0572 (Rec: 07/31/18 05:23 MRW5417 ICU-M27) Document 07/31/18 07:00 LUG2803 (Rec: 07/31/18 07:57 SZK8614 ICU-C25) Document 07/31/18 07:57 MKA4973 (Rec: 07/31/18 07:57 KQX0949 ICU-C25) Document 07/31/18 09:38 RXH5635 (Rec: 07/31/18 09:38 LGF0163 ICU-M27) Document 07/31/18 10:00 OWA7359 (Rec: 07/31/18 11:46 PVM9513 ICU-C25) Document 07/31/18 11:00 ARW5521 (Rec: 07/31/18 11:46 MXM0676 ICU-C25) Document 07/31/18 12:00 AEK0329 (Rec: 07/31/18 13:45 PEX4605 ICU-C25) Document 07/31/18 13:00 ZRH4665 (Rec: 07/31/18 13:45 GFJ3601 ICU-C25) Document 07/31/18 13:45 LBY0463 (Rec: 07/31/18 13:45 EDP7110 ICU-C25) Document 07/31/18 15:36 GEZ7527 (Rec: 07/31/18 15:36 JVA0034 ICU-C25) Document 07/31/18 17:51 NQJ6196 (Rec: 07/31/18 17:51 MMV5871 ICU-M27) Document 07/31/18 19:00 CJJ7276 (Rec: 07/31/18 22:29 CGF4289 ICU-M27) Document 07/31/18 20:00 EOB4215 (Rec: 07/31/18 22:29 OEM7103 ICU-M27) Document 07/31/18 21:00 UFY5619 (Rec: 07/31/18 22:29 WEY9337 ICU-M27) Document 07/31/18 22:00 UOS0510 (Rec: 07/31/18 22:29 DWH0706 ICU-M27) Document 07/31/18 23:00 ONN2924 (Rec: 07/31/18 23:29 QTI8537 ICU-C14) Document 08/01/18 00:00 DSV7887 (Rec: 08/01/18 00:16 NTN5822 ICU-M27) Document 08/01/18 01:00 MKO8282 (Rec: 08/01/18 01:45 KMK2688 ICU-C14) Document 08/01/18 02:00 RUX4977 (Rec: 08/01/18 02:37 USN0071 ICU-C14) Document 08/01/18 03:00 BBS3627 (Rec: 08/01/18 03:15 WST0049 ICU-M27) Document 08/01/18 04:00 INM9742 (Rec: 08/01/18 04:15 END1374 ICU-C14) Document 08/01/18 05:00 BDG5998 (Rec: 08/01/18 05:12 SFL6652 ICU-C14) Document 08/01/18 06:00 FCH8436 (Rec: 08/01/18 06:43 XNE6849 ICU-C14) Document 08/01/18 07:42 OZT9617 (Rec: 08/01/18 07:42 ZYQ1049 ICU-C12) Document 08/01/18 08:00 SUN0195 (Rec: 08/01/18 09:08 MIX9520 ICU-M27) Document 08/01/18 09:00 XSW6137 (Rec: 08/01/18 09:08 YOR1728 ICU-M27) Document 08/01/18 10:00 GQD9692 (Rec: 08/01/18 11:28 CVZ8376 ICU-M27) Document 08/01/18 11:00 TWC9494 (Rec: 08/01/18 11:28 BPK2159 ICU-M27) Document 08/01/18 13:24 TYA9130 (Rec: 08/01/18 13:24 EDS1129 ICU-M27) Document 08/01/18 14:00 HJY4242 (Rec: 08/01/18 14:58 KTR6384 ICU-M27) Document 08/01/18 14:58 DEY6033 (Rec: 08/01/18 14:58 WLO2832 ICU-M27) Document 08/01/18 15:40 KXE1248 (Rec: 08/01/18 15:40 OAY3663 ICU-C12) Document 08/01/18 17:00 GBA1526 (Rec: 08/01/18 18:23 OBY9732 ICU-C12) Document 08/01/18 18:00 GBU3339 (Rec: 08/01/18 18:23 AFX9044 ICU-C12) Document 08/01/18 19:00 MHI5235 (Rec: 08/01/18 20:14 SKF0216 ICU-M27) Document 08/01/18 20:00 YND8945 (Rec: 08/01/18 20:14 ZQK9235 ICU-M27) Document 08/01/18 21:00 ERS6298 (Rec: 08/01/18 23:28 RGH8783 ICU-C12) Document 08/01/18 22:00 EZS3100 (Rec: 08/01/18 23:28 RBX9525 ICU-C12) Document 08/01/18 23:40 VDR7071 (Rec: 08/01/18 23:43 HCI0733 ICU-M27) Document 08/02/18 00:00 ZET9757 (Rec: 08/02/18 01:30 JWD4245 ICU-C12) Document 08/02/18 01:00 WRF2256 (Rec: 08/02/18 01:30 WOU0242 ICU-C12) Document 08/02/18 02:00 WMX6572 (Rec: 08/02/18 02:03 PHU7310 ICU-M27) Document 08/02/18 03:00 BWL6842 (Rec: 08/02/18 03:40 IGQ7533 ICU-M27) Document 08/02/18 04:25 OLH9171 (Rec: 08/02/18 04:25 MJR5138 ICU-M27) Document 08/02/18 05:00 LOY2984 (Rec: 08/02/18 05:52 VFO3350 ICU-M27) Document 08/02/18 05:52 JHJ2242 (Rec: 08/02/18 05:53 LLD9766 ICU-M27) Document 08/02/18 08:38 GZK5650 (Rec: 08/02/18 08:38 JSS2022 ICU-C12) Document 08/02/18 09:29 IEU1109 (Rec: 08/02/18 09:29 LGR9049 ICU-M27) Document 08/02/18 11:11 MKV2573 (Rec: 08/02/18 11:11 YGZ5545 ICU-C12) Document 08/02/18 12:24 XFE6513 (Rec: 08/02/18 12:24 AZP9324 ICU-M27) Document 08/02/18 13:21 YMI6701 (Rec: 08/02/18 13:21 HXP5133 ICU-C12) Document 08/02/18 13:56 SDI1404 (Rec: 08/02/18 13:56 YGV6437 ICU-M27) Document 08/02/18 15:00 GCL7896 (Rec: 08/02/18 15:01 WPG6507 ICU-C12) Document 08/02/18 15:14 CNX4985 (Rec: 08/02/18 15:15 YQP7056 ICU-C12) Document 08/02/18 15:46 EJR8344 (Rec: 08/02/18 15:54 XLD5024 ICU-M27) Document 08/02/18 16:09 QJX6611 (Rec: 08/02/18 16:10 SYD9231 ICU-M27) Document 08/02/18 17:06 JPY7658 (Rec: 08/02/18 17:06 SOQ5744 ICU-C12) Document 08/02/18 18:01 FGW5324 (Rec: 08/02/18 18:01 WKS7155 ICU-C12) Document 08/02/18 19:00 EBO9969 (Rec: 08/02/18 19:15 RZZ8936 ICU-C12) Document 08/02/18 20:00 IRZ6876 (Rec: 08/02/18 22:06 ZLU0405 ICU-M27) Document 08/02/18 21:00 SHT9916 (Rec: 08/02/18 22:06 WTI0856 ICU-M27) Document 08/02/18 22:00 GGH5240 (Rec: 08/02/18 22:06 HCB5934 ICU-M27) Document 08/02/18 23:00 MMO1324 (Rec: 08/03/18 00:33 TMF8882 ICU-C12) Document 08/03/18 00:00 KRK9833 (Rec: 08/03/18 00:41 IKY6576 ICU-M27) Document 08/03/18 01:00 VFJ9426 (Rec: 08/03/18 01:29 RCY8523 ICU-C12) Document 08/03/18 02:00 YUW1193 (Rec: 08/03/18 03:57 CND5953 ICU-C12) Document 08/03/18 03:00 QHD8402 (Rec: 08/03/18 03:57 FJK1232 ICU-C12) Document 08/03/18 04:00 OYV4469 (Rec: 08/03/18 04:20 BQP7776 ICU-M27) Document 08/03/18 05:00 JYS8688 (Rec: 08/03/18 05:22 XZN9056 ICU-M27) Document 08/03/18 05:35 ZJQ9181 (Rec: 08/03/18 05:36 NOH1963 ICU-M27) Document 08/03/18 07:35 BCG7900 (Rec: 08/03/18 07:36 SJH3911 ICU-C12) Document 08/03/18 08:00 CSJ1508 (Rec: 08/03/18 08:18 ERO7318 ICU-M27) Document 08/03/18 08:47 EPE1395 (Rec: 08/03/18 08:48 FLE4208 ICU-M27) Document 08/03/18 09:46 XKS4707 (Rec: 08/03/18 09:46 ZZF7215 ICU-M27) Document 08/03/18 10:40 OYV8430 (Rec: 08/03/18 10:40 VIF2823 ICU-C12) Document 08/03/18 11:45 EOG3400 (Rec: 08/03/18 11:45 RPG6517 ICU-M27) Document 08/03/18 12:26 KRR0431 (Rec: 08/03/18 12:26 LQG3965 ICU-M27) Document 08/03/18 12:59 YUB2134 (Rec: 08/03/18 12:59 CRX0607 ICU-C12) Document 08/03/18 13:46 MVM4786 (Rec: 08/03/18 13:46 ZPS3802 ICU-M27) Document 08/03/18 14:46 ODG7408 (Rec: 08/03/18 14:47 AJE5591 ICU-M27) Document 08/03/18 15:49 WGY4263 (Rec: 08/03/18 15:50 VKI4342 ICU-M27) Document 08/03/18 16:52 KMZ2320 (Rec: 08/03/18 16:52 EII0752 ICU-M27) Document 08/03/18 17:58 BAQ5236 (Rec: 08/03/18 17:58 GJH9837 ICU-M27) Document 08/03/18 19:00 XNE5713 (Rec: 08/03/18 20:44 OCB0247 ICU-M27) Document 08/03/18 20:00 AFR9294 (Rec: 08/03/18 20:44 LEM5380 ICU-M27) Document 08/03/18 21:00 ZRD1053 (Rec: 08/03/18 21:48 RKA4107 ICU-M27) Document 08/03/18 21:47 PPX4809 (Rec: 08/03/18 21:48 AXR2021 ICU-M27) Document 08/03/18 23:31 EAN3653 (Rec: 08/03/18 23:32 AXB5722 ICU-M27) Document 08/04/18 03:00 NCM3869 (Rec: 08/04/18 03:07 QVY7844 ICU-C25) Document 08/04/18 04:00 YRH2001 (Rec: 08/04/18 05:23 OZP0801 ICU-M27) Document 08/04/18 05:00 UFD4868 (Rec: 08/04/18 05:23 VUV6448 ICU-M27) Document 08/04/18 06:00 FCU3163 (Rec: 08/04/18 06:17 GJY5453 ICU-C25) Document 08/04/18 07:00 SQN1441 (Rec: 08/04/18 08:36 HSP8612 ICU-C12) Document 08/04/18 10:00 ANM9291 (Rec: 08/04/18 13:41 KIV1366 ICU-C12) Document 08/04/18 11:00 VLR3704 (Rec: 08/04/18 13:42 VHY0153 ICU-C12) Document 08/04/18 13:00 DIR2259 (Rec: 08/04/18 13:42 TML3270 ICU-C12) Document 08/04/18 16:00 PAE9405 (Rec: 08/04/18 19:01 IOR8525 ICU-C12) Document 08/04/18 18:00 CNI5004 (Rec: 08/04/18 19:01 OIC9754 ICU-C12) Document 08/04/18 20:00 OGE6732 (Rec: 08/04/18 22:34 ATD9524 ICU-C25) Document 08/05/18 00:00 ZQQ9917 (Rec: 08/05/18 00:04 UTT5159 ICU-C25) Document 08/05/18 03:00 GYR9333 (Rec: 08/05/18 03:50 AYI1617 ICU-C25) Document 08/05/18 03:59 MIM6770 (Rec: 08/05/18 04:08 VRD0487 ICU-C25) Document 08/05/18 05:00 LCF5234 (Rec: 08/05/18 05:38 ZEA6378 ICU-C25) Document 08/05/18 05:55 QKC2360 (Rec: 08/05/18 06:36 YTM3682 ICU-C25) Document 08/05/18 08:30 UQD3183 (Rec: 08/05/18 09:35 EMU5509 ICU-C10) Document 08/05/18 10:00 RGC8387 (Rec: 08/05/18 11:22 SYH4361 ICU-C10) Document 08/05/18 11:00 XEV3747 (Rec: 08/05/18 11:22 MBD9467 ICU-C10) Document 08/05/18 12:00 HEB2720 (Rec: 08/05/18 15:34 MXO8242 ICU-C10) Document 08/05/18 13:00 TJY1804 (Rec: 08/05/18 15:34 NIU5661 ICU-C10) Document 08/05/18 14:00 YPE8638 (Rec: 08/05/18 15:34 VXQ0293 ICU-C10) Document 08/05/18 16:00 CGX0094 (Rec: 08/05/18 18:25 NCU2716 ICU-C10) Document 08/05/18 17:00 NIH8635 (Rec: 08/05/18 18:25 SWQ8751 ICU-C10) Document 08/05/18 18:00 CEL5405 (Rec: 08/05/18 18:25 LXD6959 ICU-C10) Document 08/05/18 19:00 QKZ1176 (Rec: 08/05/18 19:49 ZPH1947 ICU-M27) Document 08/05/18 20:00 JFS4926 (Rec: 08/05/18 20:51 FCG2196 ICU-M27) Document 08/05/18 21:00 GDN7974 (Rec: 08/05/18 21:16 KNS5770 ICU-M27) Document 08/05/18 22:00 DQT1463 (Rec: 08/05/18 22:11 HHX3940 ICU-M27) Document 08/05/18 23:00 WQF4489 (Rec: 08/05/18 23:16 ELA3391 ICU-M27) Document 08/06/18 00:00 KWC8438 (Rec: 08/06/18 00:35 KQJ9534 ICU-M27) Document 08/06/18 01:00 SFE3529 (Rec: 08/06/18 01:02 VCT9127 ICU-M27) Document 08/06/18 02:00 EHF2143 (Rec: 08/06/18 02:22 CYX6956 ICU-M27) Document 08/06/18 03:00 CKP1876 (Rec: 08/06/18 03:04 JRG1383 ICU-M27) Document 08/06/18 04:00 ZVG2543 (Rec: 08/06/18 04:06 OCR7871 ICU-M27) Document 08/06/18 05:00 VGQ1628 (Rec: 08/06/18 06:16 UQO3975 ICU-M30) Document 08/06/18 06:00 GTB9507 (Rec: 08/06/18 06:17 WXV2083 ICU-M30) Document 08/06/18 08:00 YWE6566 (Rec: 08/06/18 11:13 QMA1332 ICU-C15) Document 08/06/18 09:00 FTY0196 (Rec: 08/06/18 11:13 QEQ4094 ICU-C15) Document 08/06/18 10:00 SIM5761 (Rec: 08/06/18 11:13 CMK4728 ICU-C15) Document 08/06/18 11:00 XML8102 (Rec: 08/06/18 11:13 PZO0948 ICU-C15) Document 08/06/18 12:00 UWG9758 (Rec: 08/06/18 13:11 XYM1489 ICU-C15) Document 08/06/18 12:15 DQN4515 (Rec: 08/06/18 12:15 ZAA0962 ICU-C12) Document 08/06/18 13:00 HCP9138 (Rec: 08/06/18 13:01 WJX2784 ICU-M27) Document 08/06/18 14:00 GTT0240 (Rec: 08/06/18 14:05 CIT5306 ICU-C15) Document 08/06/18 14:52 IZI6588 (Rec: 08/06/18 14:52 TYT8846 ICU-C14) Document 08/06/18 16:00 SMS2526 (Rec: 08/06/18 17:21 HJO2508 ICU-C15) Document 08/06/18 17:00 WWU9007 (Rec: 08/06/18 17:21 OSB1012 ICU-C15) Document 08/06/18 18:00 UYV8312 (Rec: 08/06/18 19:23 HLV4401 ICU-C15) Document 08/06/18 19:00 UHT3422 (Rec: 08/06/18 20:32 ADQ2736 ICU-M27) Document 08/06/18 20:00 NXC5137 (Rec: 08/06/18 20:32 FYE7514 ICU-M27) Document 08/06/18 21:00 MLY3320 (Rec: 08/06/18 22:24 LVT3594 ICU-M27) Document 08/06/18 22:00 FDO0887 (Rec: 08/06/18 22:24 HKE9332 ICU-M27) Document 08/06/18 23:00 ANA5219 (Rec: 08/07/18 02:38 PQJ0081 ICU-L03) Document 08/07/18 00:00 ZGL4856 (Rec: 08/07/18 02:38 EJW5339 ICU-L03) Document 08/07/18 01:00 RFI0646 (Rec: 08/07/18 02:38 JRV9861 ICU-L03) Document 08/07/18 02:00 FGZ0216 (Rec: 08/07/18 02:38 YPL8487 ICU-L03) Document 08/07/18 03:00 ZBP4457 (Rec: 08/07/18 03:05 BUR7313 ICU-L03) Document 08/07/18 04:00 ZYV6122 (Rec: 08/07/18 07:43 GCO9208 ICU-L03) Document 08/07/18 05:00 DTP0204 (Rec: 08/07/18 07:43 KNN1742 ICU-L03) Document 08/07/18 06:00 UQE8447 (Rec: 08/07/18 07:43 HTT4217 ICU-L03) Document 08/07/18 07:00 DAG4371 (Rec: 08/07/18 07:43 ZIH8695 ICU-L03) Document 08/07/18 08:00 UUM0096 (Rec: 08/07/18 08:23 ZNJ7433 ICU-C15) Document 08/07/18 09:00 WGA9472 (Rec: 08/07/18 09:12 QGO9114 ICU-M27) Document 08/07/18 09:59 MQK3896 (Rec: 08/07/18 09:59 EGT9393 ICU-M27) Document 08/07/18 11:00 ZVN0582 (Rec: 08/07/18 11:15 DEC1860 ICU-M27) Document 08/07/18 12:00 JVW4377 (Rec: 08/07/18 12:03 VFU9224 ICU-M27) Document 08/07/18 13:00 BFN5719 (Rec: 08/07/18 13:15 AZU2634 ICU-M27) Document 08/07/18 14:00 SJV3133 (Rec: 08/07/18 15:12 NQB1967 ICU-M27) Document 08/07/18 15:00 SKV6998 (Rec: 08/07/18 15:16 KBI1945 ICU-M27) Document 08/07/18 15:20 NZX6242 (Rec: 08/07/18 15:31 TMJ1439 ICU-C15) Document 08/07/18 17:00 VPB3405 (Rec: 08/07/18 17:33 XHG7588 ICU-M27) Document 08/07/18 19:51 GHZ7562 (Rec: 08/07/18 19:51 ZAF8768 ICU-M27) Document 08/07/18 21:00 OWP4729 (Rec: 08/07/18 21:22 POH6899 ICU-C25) Document 08/07/18 22:00 DVO5759 (Rec: 08/08/18 00:33 FSS1007 ICU-C15) Document 08/07/18 23:00 UVD8061 (Rec: 08/08/18 00:33 ZUF6122 ICU-C15) Document 08/08/18 00:00 BHT6011 (Rec: 08/08/18 00:33 JJK6114 ICU-C15) Document 08/08/18 01:00 FPF9613 (Rec: 08/08/18 04:19 QVN0270 ICU-C15) Document 08/08/18 02:00 NJM0225 (Rec: 08/08/18 04:19 WGJ1247 ICU-C15) Document 08/08/18 03:00 VGR4471 (Rec: 08/08/18 05:12 BGB1758 ICU-M27) Document 08/08/18 04:00 SEV5241 (Rec: 08/08/18 05:12 DMQ3305 ICU-M27) Document 08/08/18 05:00 WYK3482 (Rec: 08/08/18 05:12 UDR2123 ICU-M27) Document 08/08/18 06:00 FGI7787 (Rec: 08/08/18 06:38 XVX8072 ICU-M27) Document 08/08/18 06:44 KTL8301 (Rec: 08/08/18 06:44 OXK7782 ICU-C15) Document 08/08/18 07:00 OMJ8774 (Rec: 08/08/18 08:59 ANG8278 ISDEMO-M03 ) Document 08/08/18 08:00 FCG6610 (Rec: 08/08/18 08:59 MZF0574 ISDEMO-M03 ) Document 08/08/18 09:00 XNT6633 (Rec: 08/08/18 11:34 ALA3504 ICU-C15) Document 08/08/18 10:00 EIP9494 (Rec: 08/08/18 11:34 ZVY8542 ICU-C15) Document 08/08/18 11:00 VEV7215 (Rec: 08/08/18 11:34 ZFW0595 ICU-C15) Document 08/08/18 12:00 NXO3634 (Rec: 08/08/18 12:20 XDU6724 ICU-C15) Document 08/08/18 13:00 OEU4219 (Rec: 08/08/18 14:52 LLL9645 ISDEMO-M03 ) Document 08/08/18 14:00 FVV9628 (Rec: 08/08/18 14:52 UDQ7172 ISDEMO-M03 ) Document 08/08/18 15:00 ETK2313 (Rec: 08/08/18 15:30 CCD6398 ICU-C15) Document 08/08/18 16:00 YOU9281 (Rec: 08/08/18 17:02 TLV2240 ICU-M27) Document 08/08/18 17:00 ZUS6748 (Rec: 08/08/18 17:02 YRS7007 ICU-M27) Document 08/08/18 18:00 XIP4017 (Rec: 08/08/18 18:14 LIY8621 ICU-C15) Document 08/08/18 22:28 SEW5748 (Rec: 08/08/18 22:28 APO2006 ICU-C12) Document 08/09/18 01:25 JSR9207 (Rec: 08/09/18 01:26 HPL6207 ICU-M27) Document 08/09/18 05:00 KKY9730 (Rec: 08/09/18 05:08 ONM4384 ICU-M27) Document 08/09/18 06:42 RGV5453 (Rec: 08/09/18 06:46 ZTW9721 ICU-M27) Document 08/09/18 07:51 IIN5045 (Rec: 08/09/18 07:51 HOZ6077 ICU-C12) Document 08/09/18 09:00 WMM8671 (Rec: 08/09/18 11:04 LPX9065 ICU-C12) Document 08/09/18 10:00 ZTG5221 (Rec: 08/09/18 11:04 AWU4903 ICU-C12) Document 08/09/18 11:00 CDS0750 (Rec: 08/09/18 11:05 JRK5167 ICU-C12) Document 08/09/18 12:00 MZP2215 (Rec: 08/09/18 12:09 ZNC4773 ICU-C12) Document 08/09/18 12:57 ENU2964 (Rec: 08/09/18 12:57 UTV5357 ICU-M27) Document 08/09/18 14:00 ZTB6906 (Rec: 08/09/18 14:12 UDY8319 ICU-M27) Document 08/09/18 15:00 VRU2530 (Rec: 08/09/18 15:03 GVD4116 ICU-C12) Document 08/09/18 16:00 FAZ2554 (Rec: 08/09/18 17:50 RRQ9349 ICU-C12) Document 08/09/18 17:00 UQN0723 (Rec: 08/09/18 17:50 GXO0553 ICU-C12) Document 08/09/18 17:51 TAX8241 (Rec: 08/09/18 17:51 DEP0180 ICU-C12) Document 08/09/18 19:00 NLA3248 (Rec: 08/09/18 20:31 GLD6848 ICU-C15) Document 08/09/18 20:00 VYE9278 (Rec: 08/09/18 20:49 DHT1470 ICU-C15) Document 08/09/18 23:00 TDA8615 (Rec: 08/09/18 23:25 JMX1716 ICU-C15) Document 08/10/18 00:00 RXC4170 (Rec: 08/10/18 00:43 LZU2221 ICU-C15) Document 08/10/18 03:31 XYC8102 (Rec: 08/10/18 03:41 LBX1402 ICU-C15) Document 08/10/18 03:51 VEK8224 (Rec: 08/10/18 03:51 JPN8979 ICU-M27) Document 08/10/18 08:00 ZBW5090 (Rec: 08/10/18 08:31 WDE4155 ICU-C25) Labs: Laboratory Results - last 24 hr 08/09/18 08/09/18 08/09/18 12:56 17:55 23:23 Sodium Potassium Chloride Carbon Dioxide Anion Gap BUN Creatinine Est GFR ( Amer) Est GFR (Non-Af Amer) BUN/Creatinine Ratio Glucose POC Glucose (mg/dL) 101 H 98 124 H Calcium 08/10/18 03:55 Sodium 148 H Potassium 2.8 L Chloride 111 Carbon Dioxide 31 Anion Gap 6 BUN 13 Creatinine 0.36 L Est GFR ( Amer) 210.4 Est GFR (Non-Af Amer) 173.9 BUN/Creatinine Ratio 36.1 H Glucose 107 H POC Glucose (mg/dL) Calcium 8.1 L Studies: CXR 08/07: persistent opacities bilaterally with improvement in the bases R>L compared to 08/04 CXR 08/04: Increased bilateral alveolar opacities compared to prior study Nutrition: TF: Glucerna 1.2 argelia Goal of 55cc/h via PEG Tube FWF 150 cc/q4h Impression: Acute encephalopathy Critical illness neuromyopathy Prolonged mechanical ventilation Hypoxemic respiratory failure Pulmonary edema, anasarca Diarrhea C-Diff associated diarrhea (CDAD) Peg tube placement 08/07 Electrolyte abnormalities- hypernatremia, hypokalemia, hypomagnesemia Anasarca Plan: # Acute encephalopathy # Critical illness neuromyopathy # hx/o depression Improving mental status grossly - off precedex since 08/07 - on citalopram -PT/OT pending # Prolonged mechanical ventilation # Hypoxemic respiratory failure # Pulmonary edema, anasarca # PNA - Tolerated TM ~24 h since 08/09. Plan to Trach collar today as tolerated. - Awaiting for PMV by ST/RT - RT for trach care - Ok to rest on vent if she tires out - s/p abx tx. Afebrile (Tmax 100.2-->99.7), resp status improving to stable, and no leukocytosis- hold new abx. Will attribute new RCX Staph aureus and KPNA as possible colonizer. -Continue Lasix 20 mg daily. Monitory I/O - Duplex UE/LE to r/o DVT 08/10 # Diarrhea # C-Diff associated diarrhea (CDAD) - c/w oral vanc and IV flagyl for total of 14 days - fiber (guar gum) with TF # s/p Peg tube placement 08/07 # Malnutrition - on TF # Electrolyte abnormalities- hypernatremia, hypokalemia, hypomagnesemia low enteral intake +/- diuretic induced - check BMP, Mg, phos - replace electrolytes - FWF 150 cc/q4h via peg tube 08/10 # HTN - on atenolol, lisinopril - prn hydralazine DVT PPX: Enoxaparin GI ppx: famotidine Prognosis: Guarded Dispo: Monitor in ICU. Anticipate discharge to Vent facility if able to tolerate TC for >48 h Critical care issues: acute respiratory failure due to hypoxemia, mechanical ventilation, precedex Critical Care Time: 40 min
[2018-08-10] MEDS: KCL 20 MEQ/100 ML IVPREMIX* 20 MEQ/100 ML BAG IV SCH ×2 (09:24→12:18)
[2018-08-10] MEDS: Bacitracin OINTMENT* 0.5% 0.5 oz TUBE TOPICAL SCH ×2 (09:26→21:11)
[2018-08-10] MEDS: Artificial Tears* 15 ML BTL BOTH EYES PRN (09:27)
[2018-08-10] MEDS: Nystatin CREAM* 15 GM TUBE TOPICAL SCH ×3 (09:27→21:11)
[2018-08-10] MEDS: Furosemide IV* 10 MG/ML 2 ML VIAL (20 MG) IV SCH (09:28)
[2018-08-10] MEDS: Lisinopril TAB* 10 MG PO SCH (09:31)
[2018-08-10] MEDS: Potassium Chloride LIQUID* 20 MEQ PACKET PO SCH (09:32)
[2018-08-10] MEDS: Lactobacillus Acidophilus* 1 TAB PO SCH (09:32)
[2018-08-10] MEDS: amLODIPine TAB* 5 MG PO SCH (09:32)
[2018-08-10] MEDS: Citalopram TAB* 20 MG PO SCH (09:32)
[2018-08-10] MEDS: Atenolol TAB* 25 MG PO SCH ×2 (09:32→21:10)
[2018-08-10] MEDS: FIBER SUPPLEMENT G TUBE SCH (09:33)
[2018-08-10] MEDS: VANCOMYCIN G TUBE SCH (09:33)
[2018-08-10 10:32] LABS: BUN/Creatinine Ratio 38.9 (8-20); Calcium 8.3 mg/dL (8.6-10.3); EGFR African American 210.4 (>60); EGFR Non-African American 173.9 (>60); Magnesium 1.9 mg/dL (1.9-2.7); Phosphorus 2.3 mg/dL (2.5-5.0); Potassium 3.1 mmol/L (3.5-5.0)
[2018-08-10] MEDS ORDERED: Dextrose 50% Syringe 50 ML* 25 GM/50 ML SYRINGE IV PUSH PRN (10:42)
[2018-08-10] MEDS ORDERED: Insulin LISPRO* 1 UNITS UNIT SUBCUT SCH (12:00)
[2018-08-10] MEDS ORDERED: Warfarin TAB(*) 4 MG PO ONE (12:00)
[2018-08-10] MEDS: VANCOMYCIN PO SCH ×3 (12:19→21:10)
[2018-08-10] MEDS: Famotidine TAB* 20 MG PO SCH (12:20)
[2018-08-10] MEDS ORDERED: VANCOMYCIN G TUBE SCH (13:00)
[2018-08-10] MEDS ORDERED: Sodium Phosphate INJ* 15 MMOLE in NS 0.9% 250 ML* 250 ML IVPB ONE (15:31)
[2018-08-10 17:00] LABS: BUN/Creatinine Ratio 35.9 (8-20); EGFR African American 191.8 (>60); EGFR Non-African American 158.5 (>60); Potassium 3.8 mmol/L (3.5-5.0)
[2018-08-11] MEDS: Insulin LISPRO* 1 UNITS UNIT SUBCUT SCH ×4 (00:30→19:12)
[2018-08-11] MEDS: metroNIDAZOLE IV 500 MG/100ML* 500 MG/100 ML BAG IVPB SCH ×2 (04:15→07:36)
[2018-08-11 06:26] LABS: INR 1.34 (0.77-1.02)
[2018-08-11] MEDS: Levothyroxine TAB* 150 MCG TAB NG TUBE SCH (06:34)
[2018-08-11 06:43] LABS: BUN/Creatinine Ratio 42.4 (8-20); Calcium 8.1 mg/dL (8.6-10.3); EGFR African American 232.6 (>60); EGFR Non-African American 192.2 (>60); Magnesium 1.9 mg/dL (1.9-2.7); Phosphorus 2.3 mg/dL (2.5-5.0); Potassium 3.6 mmol/L (3.5-5.0)
[2018-08-11] MEDS: Aspirin 81 mg CHEW TAB* 81 MG TAB.CHEW PO SCH (07:36)
[2018-08-11] MEDS: Enoxaparin(*) 80 MG/0.8 ML SYR SUBCUT SCH ×2 (08:32→21:26)
[2018-08-11] MEDS: FIBER SUPPLEMENT G TUBE SCH (08:32)
[2018-08-11] MEDS: VANCOMYCIN PO SCH ×4 (08:32→21:24)
[2018-08-11] MEDS: Lactobacillus Acidophilus* 1 TAB PO SCH (08:33)
[2018-08-11] MEDS: Potassium Chloride LIQUID* 20 MEQ PACKET PO SCH (08:33)
[2018-08-11] MEDS: amLODIPine TAB* 5 MG PO SCH (08:33)
[2018-08-11] MEDS: Atenolol TAB* 25 MG PO SCH ×2 (08:33→21:18)
[2018-08-11] MEDS: Famotidine TAB* 20 MG PO SCH (08:33)
[2018-08-11] MEDS: Citalopram TAB* 20 MG PO SCH (08:33)
[2018-08-11] MEDS: Lisinopril TAB* 10 MG PO SCH (08:33)
[2018-08-11] MEDS: Nystatin CREAM* 15 GM TUBE TOPICAL SCH ×3 (08:34→21:25)
[2018-08-11] MEDS: Furosemide IV* 10 MG/ML 2 ML VIAL (20 MG) IV SCH (08:34)
[2018-08-11] MEDS: Bacitracin OINTMENT* 0.5% 0.5 oz TUBE TOPICAL SCH ×2 (08:34→21:26)
--- NOTE | 2018-08-11 09:53 | PN ---
Date of Service: 08/11/18 - TRANSFER NOTE Critical Care Services: 78 F with hx/o Thyroid Ca s/p resection and XRT, chronic pain, AF, s/p PPM for arrhythmias, with prolonged mechanical ventilation and recurrent re-intubations Current complains:communicates with facial gestures and head nodding. She denies fever, pain. Complains of weakness and nausea today 24 hours/overnight events: Has been on Trach mask for almost 2 full days without any new/concerning respiratory complains. TF via peg tube started 07/17/18: DOA 08/04/18: Tracheostomy 08/07:Peg tube placment Vital Signs: Temp Pulse Resp BP SpO2 FiO2 99.1 F 70 22 150/82 93 40 08/11/18 09:00 08/11/18 09:00 08/11/18 09:00 08/11/18 09:00 08/11/18 09:00 08/11 04:00 Physical Exam: Gen: NAD. HEENT: Trach stoma intact with tracheostomy in place. NCAT, PERRL Lungs: clear to auscultation bilaterally Cardiac: S1S2, RRR Abdomen: SNTND, +BS. PEG tube placement in the LUQ- grossly no concerns Extremities: B/L UE and LE 3+ edema including the dorsum of hands Neuro:Non focal, AA Fluid Balance (Past 24 Hours): I= O= Net Intake & Output 08/09/18 08/10/18 08/11/18 08/12/18 06:59 06:59 06:59 06:59 Intake Total 025 644 3895 370 Output Total 1902259 603 Balance -1519 -1701 984 -233 Weight 190 lb 9.561 oz 189 lb 9.561 oz Intake: IV Fluids 276 301 748 ABX - FLAGYL 121 171 370 NS w meds 155 130 378 IVPB 110 177 396 ABX - FLAGYL 110 177 98 NS w meds 298 Oral 0 Tube Feeding 0 780 Tube Feeding Flush Amount 1080 370 Albumin 81 NG Tube Irrigate Amount 0 Output: Walsh 1705 2059 2019 60 Liquid Stool 200 200 Tube Feeding Residual 0 Amount Wasted Other: Date of Last Bowel 08/10/18 Movement # Bowel Movements 1 Estimated Stool Amount Large ADLs: Meal Record Start: 07/17/18 17: 39 Freq: Status: Active Protocol: Created 07/17/18 17:39 System (Rec: 07/17/18 17:39 System ICU-C20) Document 07/17/18 18:00 CEE3146 (Rec: 07/17/18 18:09 HJL3274 ICU-C12) Document 07/18/18 09:00 LCF5349 (Rec: 07/18/18 10:08 NVJ5239 ICU-C15) Document 07/18/18 13:00 HEM1944 (Rec: 07/18/18 13:24 GUQ9243 ICU-C15) Document 07/18/18 18:00 ADZ0885 (Rec: 07/18/18 18:15 MQQ6016 ICU-C15) Document 07/19/18 09:00 OPF7331 (Rec: 07/19/18 09:05 RPY1231 ICU-M27) Document 07/19/18 12:57 RGM8374 (Rec: 07/19/18 12:58 NRS7488 ICU-L03) Document 07/19/18 18:00 NNF6173 (Rec: 07/19/18 18:32 HPU1706 ICU-C15) Document 07/20/18 09:00 APM7741 (Rec: 07/20/18 09:21 BEN6630 ICU-C15) Document 07/20/18 13:00 JET9373 (Rec: 07/20/18 13:27 ASS4308 ICU-C15) Document 07/20/18 17:06 ALJ4335 (Rec: 07/20/18 17:06 PQK1228 ICU-C15) Document 07/21/18 08:55 VBX6992 (Rec: 07/21/18 08:55 LDQ4145 ICU-M27) Document 07/21/18 12:37 WJY8461 (Rec: 07/21/18 12:37 ACV0471 ICU-C12) Document 07/21/18 17:01 JRG0307 (Rec: 07/21/18 17:01 ZMO1402 ICU-C12) Document 07/22/18 09:00 BDT6703 (Rec: 07/22/18 09:11 PLI7407 ICU-M27) Document 07/22/18 13:20 PTE3813 (Rec: 07/22/18 13:20 WQZ5047 ICU-C12) Document 07/22/18 17:04 EVG5806 (Rec: 07/22/18 17:04 MRH7519 ICU-C12) Document 07/23/18 09:00 XBY4305 (Rec: 07/23/18 09:39 UHZ8305 ICU-C12) Document 07/23/18 13:00 HUT1951 (Rec: 07/23/18 13:43 QTE6574 ICU-C12) Document 07/24/18 09:00 GSN0800 (Rec: 07/24/18 09:12 QDT4619 ICU-C12) Document 07/24/18 13:00 CZL8081 (Rec: 07/24/18 13:02 PAE5075 ICU-C12) Document 07/24/18 18:00 ACU4442 (Rec: 07/24/18 18:02 GKI0155 ICU-M27) Intake and Output Start: 07/17/18 15: 30 Freq: Status: Active Protocol: Created 07/17/18 15:30 System (Rec: 07/17/18 15:30 System EDRM-C04) Intake and Output Start: 07/17/18 17: 39 Freq: Q1HR Status: Active Protocol: Created 07/17/18 17:39 System (Rec: 07/17/18 17:39 System ICU-C20) Document 07/17/18 18:00 JBG3088 (Rec: 07/17/18 18:09 VOC9776 ICU-C12) Document 07/17/18 20:00 XTW2013 (Rec: 07/17/18 21:35 CVP3025 ICU-C12) Document 07/17/18 21:00 ULD1107 (Rec: 07/17/18 22:27 DPS3246 ICU-M27) Document 07/17/18 22:00 IST1267 (Rec: 07/18/18 00:01 SBS8798 ICU-C12) Document 07/17/18 23:00 MBV1859 (Rec: 07/18/18 00:01 MXG7149 ICU-C12) Document 07/18/18 00:00 NPV3962 (Rec: 07/18/18 02:55 NNU4716 ICU-C12) Document 07/18/18 01:00 ORC5865 (Rec: 07/18/18 02:55 SAW2983 ICU-C12) Document 07/18/18 02:00 PAX7396 (Rec: 07/18/18 02:55 DRU1228 ICU-C12) Document 07/18/18 03:00 JIB1630 (Rec: 07/18/18 03:16 GHP5355 ICU-C12) Document 07/18/18 04:00 KTQ6095 (Rec: 07/18/18 05:15 BYF8281 ICU-M27) Document 07/18/18 06:30 STV9406 (Rec: 07/18/18 06:30 WDB4650 ICU-M27) Document 07/18/18 07:00 CPG0574 (Rec: 07/18/18 07:22 DNR2852 ICU-M27) Document 07/18/18 08:00 JJG5398 (Rec: 07/18/18 09:14 GMA9098 ICU-M27) Document 07/18/18 09:00 SFW2371 (Rec: 07/18/18 09:15 DQF1809 ICU-M27) Document 07/18/18 10:00 BZG0829 (Rec: 07/18/18 10:08 AIB9292 ICU-C15) Document 07/18/18 11:00 LIS1317 (Rec: 07/18/18 11:07 ZFF3050 ICU-M27) Document 07/18/18 12:00 GCI7993 (Rec: 07/18/18 12:25 VCV8668 ICU-C15) Document 07/18/18 13:00 HTZ4061 (Rec: 07/18/18 13:24 SLF3601 ICU-C15) Document 07/18/18 14:00 JKK3827 (Rec: 07/18/18 14:14 PNV1462 ICU-C15) Document 07/18/18 15:00 KNN2350 (Rec: 07/18/18 15:13 SEW6086 ICU-C15) Document 07/18/18 16:00 CMI5389 (Rec: 07/18/18 17:41 BBD7832 ICU-C15) Document 07/18/18 17:00 XPK2522 (Rec: 07/18/18 17:58 SIU3879 ICU-C15) Document 07/18/18 18:00 OGZ5427 (Rec: 07/18/18 18:15 WOG9978 ICU-C15) Document 07/18/18 21:55 TKZ6290 (Rec: 07/18/18 21:55 QWB5258 ICU-M27) Document 07/18/18 23:00 NMT0213 (Rec: 07/18/18 23:31 CVI7553 ICU-C15) Document 07/18/18 23:59 OZZ2054 (Rec: 07/18/18 23:59 TTS3519 ICU-M27) Document 07/19/18 02:58 ESP5557 (Rec: 07/19/18 02:58 TEE8564 ICU-C14) Document 07/19/18 03:00 VYP9380 (Rec: 07/19/18 03:15 HIY7699 ICU-M27) Document 07/19/18 04:00 BVG6038 (Rec: 07/19/18 05:28 PTG7128 ICU-C15) Document 07/19/18 05:00 MSO7254 (Rec: 07/19/18 05:32 YLP3596 ICU-C15) Document 07/19/18 06:00 OUG0786 (Rec: 07/19/18 06:35 NRB3824 ICU-C15) Document 07/19/18 07:00 XOE8275 (Rec: 07/19/18 09:03 GYS8362 ICU-M27) Document 07/19/18 08:00 FEC7901 (Rec: 07/19/18 09:03 JAO3869 ICU-M27) Document 07/19/18 09:00 LQM7174 (Rec: 07/19/18 09:03 WRF6640 ICU-M27) Document 07/19/18 10:00 XFS5370 (Rec: 07/19/18 10:41 GYT5578 ICU-M27) Document 07/19/18 10:45 HDY5056 (Rec: 07/19/18 10:45 KLN3201 ICU-M27) Document 07/19/18 11:00 XIK2944 (Rec: 07/19/18 11:04 LLV1686 ICU-M27) Document 07/19/18 12:00 TTO8848 (Rec: 07/19/18 12:12 MOV5145 ICU-M27) Document 07/19/18 12:59 VZF1448 (Rec: 07/19/18 12:59 AVS0984 ICU-L03) Document 07/19/18 13:56 FWL6730 (Rec: 07/19/18 13:57 IGX5221 ICU-L03) Document 07/19/18 14:54 VVH6844 (Rec: 07/19/18 14:54 NSM2762 ICU-L03) Document 07/19/18 16:00 HVK1899 (Rec: 07/19/18 16:42 PIQ4404 ICU-C15) Document 07/19/18 17:00 LUC4956 (Rec: 07/19/18 18:31 BIR7349 ICU-C15) Document 07/19/18 18:00 OZT1405 (Rec: 07/19/18 18:32 WOC2674 ICU-C15) Document 07/19/18 19:00 LCK4955 (Rec: 07/19/18 19:16 AYN2822 ICU-M27) Document 07/19/18 21:00 PVL0808 (Rec: 07/19/18 21:27 XWE9203 [facility]-M03 ) Document 07/19/18 22:00 VQV5438 (Rec: 07/19/18 22:13 RLO6487 ICU-L03) Document 07/19/18 22:54 YOQ1191 (Rec: 07/19/18 22:54 YCC4708 ICU-M27) Document 07/20/18 00:00 BUX6488 (Rec: 07/20/18 01:34 LUL4303 ICU-L03) Document 07/20/18 01:00 CWA3542 (Rec: 07/20/18 01:34 MZZ7402 ICU-L03) Document 07/20/18 02:00 TKF5649 (Rec: 07/20/18 02:07 AFX3998 ICU-L03) Document 07/20/18 03:00 RDT1321 (Rec: 07/20/18 04:37 JHS6795 ICU-L03) Document 07/20/18 04:00 QIO7568 (Rec: 07/20/18 04:37 VQM8306 ICU-L03) Document 07/20/18 05:00 SRM9655 (Rec: 07/20/18 05:12 FVF3863 ICU-L03) Document 07/20/18 06:00 RHT6727 (Rec: 07/20/18 06:07 PQQ7078 ICU-M27) Document 07/20/18 07:00 WXF5165 (Rec: 07/20/18 07:32 IUT2158 ICU-C15) Document 07/20/18 08:00 SOT0057 (Rec: 07/20/18 09:00 HPO7879 ICU-C15) Document 07/20/18 09:00 CJI7259 (Rec: 07/20/18 09:19 SRE1068 ICU-C15) Document 07/20/18 10:00 IMS5790 (Rec: 07/20/18 10:46 RFI7418 ICU-C15) Document 07/20/18 10:47 QCL9993 (Rec: 07/20/18 10:47 CMP9553 ICU-C15) Document 07/20/18 12:17 RVQ7481 (Rec: 07/20/18 12:17 XGR5690 ICU-C15) Document 07/20/18 13:00 JRM1258 (Rec: 07/20/18 13:27 AFM0775 ICU-C15) Document 07/20/18 14:16 MTA4418 (Rec: 07/20/18 14:16 TCY5514 ICU-M27) Document 07/20/18 15:00 KRB4139 (Rec: 07/20/18 15:03 PQM3425 ICU-M27) Document 07/20/18 16:14 AGM9152 (Rec: 07/20/18 16:14 QLZ7090 ICU-M27) Document 07/20/18 17:07 XIR1281 (Rec: 07/20/18 17:07 LAK6840 ICU-C15) Document 07/20/18 18:20 SII7568 (Rec: 07/20/18 18:20 USM0738 [facility]-3 ) Document 07/20/18 19:00 KMO2232 (Rec: 07/20/18 21:34 ZCF3205 ICU-C15) Document 07/20/18 21:00 LHJ9988 (Rec: 07/20/18 21:35 NQF8495 ICU-C15) Document 07/20/18 22:00 OIN1104 (Rec: 07/20/18 22:12 SNP7497 ICU-C15) Document 07/20/18 23:00 MAE2035 (Rec: 07/20/18 23:13 ZNO5338 ICU-C15) Document 07/21/18 01:00 HRV1129 (Rec: 07/21/18 01:35 PEM0143 ICU-C15) Document 07/21/18 02:00 CVC7306 (Rec: 07/21/18 02:14 KFQ2616 ICU-C15) Document 07/21/18 03:00 JHI6899 (Rec: 07/21/18 03:44 UIT7933 ICU-C25) Document 07/21/18 05:00 XRX7087 (Rec: 07/21/18 05:05 NXW3651 ICU-C15) Document 07/21/18 06:00 FKR6174 (Rec: 07/21/18 06:23 IVM7555 ICU-C15) Document 07/21/18 07:00 ZNI5712 (Rec: 07/21/18 07:20 RQB6574 ICU-C12) Document 07/21/18 08:11 XRU0653 (Rec: 07/21/18 08:11 JNO0422 ICU-M27) Document 07/21/18 08:54 WPA4086 (Rec: 07/21/18 08:55 ZRQ8293 ICU-M27) Document 07/21/18 10:00 RYH2631 (Rec: 07/21/18 10:03 SYC3608 ICU-C12) Document 07/21/18 10:59 OXF2031 (Rec: 07/21/18 10:59 SRQ0285 ICU-C12) Document 07/21/18 12:33 TEQ2845 (Rec: 07/21/18 12:33 QZO3697 ICU-C12) Document 07/21/18 13:06 KKF6304 (Rec: 07/21/18 13:06 TFC1479 ICU-C12) Document 07/21/18 14:00 ETX9789 (Rec: 07/21/18 14:06 OXS3553 ICU-C12) Document 07/21/18 16:00 OUY4684 (Rec: 07/21/18 16:01 GVA7235 ICU-C12) Document 07/21/18 16:54 AJD4050 (Rec: 07/21/18 16:54 MSR0017 ICU-C12) Document 07/21/18 18:00 NSB6583 (Rec: 07/21/18 18:02 RXV9276 ICU-C12) Document 07/21/18 19:00 KFW1788 (Rec: 07/21/18 19:56 CSJ9769 ICU-C15) Document 07/21/18 20:00 DEC8723 (Rec: 07/21/18 21:16 KGR1003 ICU-C15) Document 07/21/18 21:00 YKP9912 (Rec: 07/21/18 21:16 OXF8031 ICU-C15) Document 07/21/18 22:00 DDA7405 (Rec: 07/21/18 22:01 UGB9279 ICU-C15) Document 07/21/18 23:00 GGK1152 (Rec: 07/22/18 00:28 NAU5933 ICU-C15) Document 07/22/18 00:00 FCP2248 (Rec: 07/22/18 00:28 LJS3845 ICU-C15) Document 07/22/18 01:00 NDM0689 (Rec: 07/22/18 01:29 UVP7279 ICU-C15) Document 07/22/18 02:00 RZW9989 (Rec: 07/22/18 03:53 ING1036 ICU-C15) Document 07/22/18 03:00 OUJ5212 (Rec: 07/22/18 03:54 HMD4830 ICU-C15) Document 07/22/18 04:00 SUE0848 (Rec: 07/22/18 05:40 XTT4188 ICU-M27) Document 07/22/18 05:00 TKH9671 (Rec: 07/22/18 05:40 ICP3967 ICU-M27) Document 07/22/18 05:39 JIQ4704 (Rec: 07/22/18 05:40 USO1543 ICU-M27) Document 07/22/18 07:56 VEH7833 (Rec: 07/22/18 07:57 VHL1925 ICU-M27) Document 07/22/18 09:00 DOV0986 (Rec: 07/22/18 09:11 KHF7856 ICU-M27) Document 07/22/18 09:58 YFA2596 (Rec: 07/22/18 09:58 LRT5825 ICU-M27) Document 07/22/18 11:00 HQA5606 (Rec: 07/22/18 11:06 HLY8070 ICU-C12) Document 07/22/18 12:35 ZVQ7227 (Rec: 07/22/18 12:35 JKY6849 ICU-C12) Document 07/22/18 13:31 EFQ1415 (Rec: 07/22/18 13:31 BJH0649 ICU-C12) Document 07/22/18 14:20 JQR6809 (Rec: 07/22/18 14:20 HPL4812 ICU-M27) Document 07/22/18 15:05 CQZ2922 (Rec: 07/22/18 15:05 NRG4181 ICU-C12) Document 07/22/18 15:58 WFA7562 (Rec: 07/22/18 15:58 JOV3251 ICU-C12) Document 07/22/18 17:02 XOW5152 (Rec: 07/22/18 17:03 WRY2623 ICU-C12) Document 07/22/18 18:14 JEL0654 (Rec: 07/22/18 18:15 ZWB7875 ICU-C12) Document 07/22/18 19:00 YNU3700 (Rec: 07/22/18 20:14 TSQ9827 ICU-C15) Document 07/22/18 20:00 CWJ3719 (Rec: 07/22/18 20:14 TSQ0502 ICU-C15) Document 07/22/18 21:00 YID6275 (Rec: 07/22/18 21:06 LVT3966 ICU-C15) Document 07/22/18 22:00 CGA9819 (Rec: 07/22/18 22:16 QDG6899 ICU-C15) Document 07/22/18 23:00 LVK4276 (Rec: 07/22/18 23:54 NHE8471 ICU-C15) Document 07/22/18 23:54 WOE2565 (Rec: 07/22/18 23:54 BXH1477 ICU-C15) Document 07/23/18 01:00 DWX7248 (Rec: 07/23/18 03:26 FEB7302 ICU-M27) Document 07/23/18 02:00 CUK3280 (Rec: 07/23/18 03:26 VVJ1943 ICU-M27) Document 07/23/18 03:00 BDZ4281 (Rec: 07/23/18 03:26 HMK8179 ICU-M27) Document 07/23/18 04:00 BSB8186 (Rec: 07/23/18 05:11 BHX0908 ICU-C15) Document 07/23/18 05:00 JKE4691 (Rec: 07/23/18 05:11 DMC1292 ICU-C15) Document 07/23/18 06:00 BZP6382 (Rec: 07/23/18 06:30 SWQ1868 ICU-C15) Document 07/23/18 07:00 LXJ5117 (Rec: 07/23/18 08:18 SQF3287 ICU-C12) Document 07/23/18 08:00 XTU2748 (Rec: 07/23/18 08:57 RUU0796 ICU-M27) Document 07/23/18 08:00 ORQ4446 (Rec: 07/23/18 08:57 BOC3363 ICU-M27) Document 07/23/18 09:00 WDY2881 (Rec: 07/23/18 09:44 BFJ7449 ICU-C12) Document 07/23/18 10:00 SUK7468 (Rec: 07/23/18 10:05 YAO7016 ICU-M27) Document 07/23/18 11:00 PAP9316 (Rec: 07/23/18 11:11 RWV6840 ICU-C12) Document 07/23/18 12:00 XFI2945 (Rec: 07/23/18 12:11 BID7339 ICU-C12) Document 07/23/18 13:00 THJ5096 (Rec: 07/23/18 13:51 ZAE0479 ICU-C12) Document 07/23/18 14:00 HOC6940 (Rec: 07/23/18 17:04 CXW1883 ICU-M27) Document 07/23/18 15:00 TFW5425 (Rec: 07/23/18 17:04 WHG5078 ICU-M27) Document 07/23/18 16:00 KXH0798 (Rec: 07/23/18 17:04 IYV0037 ICU-M27) Document 07/23/18 17:00 MUQ7534 (Rec: 07/23/18 17:04 HYN9963 ICU-M27) Document 07/23/18 17:08 LIZ1041 (Rec: 07/23/18 17:09 WUS8152 ICU-M27) Document 07/23/18 18:00 PIT9222 (Rec: 07/23/18 18:58 VAT5934 ICU-C12) Document 07/23/18 19:00 GHJ1648 (Rec: 07/23/18 19:01 VXK2136 ICU-C12) Document 07/23/18 20:00 PUU1963 (Rec: 07/23/18 20:03 TKU9621 ICU-M27) Document 07/23/18 21:00 DFZ3359 (Rec: 07/23/18 22:20 SNT7842 ICU-M27) Document 07/23/18 22:00 MQB8138 (Rec: 07/23/18 22:20 WGY8524 ICU-M27) Document 07/23/18 23:00 NFG4993 (Rec: 07/23/18 23:12 SXK8923 ICU-C25) Document 07/24/18 00:00 ACM1646 (Rec: 07/24/18 00:39 VMW9221 ICU-C25) Document 07/24/18 01:00 EQI9456 (Rec: 07/24/18 01:04 TPQ0176 ICU-M27) Document 07/24/18 02:00 NBP7730 (Rec: 07/24/18 03:10 SXD1482 ICU-C25) Document 07/24/18 03:00 BEI7851 (Rec: 07/24/18 03:10 IHZ3683 ICU-C25) Document 07/24/18 04:00 VJQ9316 (Rec: 07/24/18 04:06 LQH2542 ICU-C25) Document 07/24/18 05:00 GDG4962 (Rec: 07/24/18 05:19 SEJ6390 ICU-C25) Document 07/24/18 06:00 HGM8018 (Rec: 07/24/18 06:14 FTZ5472 ICU-M27) Document 07/24/18 07:00 HVH2774 (Rec: 07/24/18 07:19 CSM7891 ICU-C25) Document 07/24/18 08:00 QZJ4496 (Rec: 07/24/18 09:00 LLJ3467 ICU-C12) Document 07/24/18 09:00 VYF4022 (Rec: 07/24/18 09:00 IZZ8537 ICU-C12) Document 07/24/18 10:00 EJV5145 (Rec: 07/24/18 11:47 TLE9498 ICU-C12) Document 07/24/18 11:00 DFC1428 (Rec: 07/24/18 11:47 CFB6947 ICU-C12) Document 07/24/18 12:00 YWU7614 (Rec: 07/24/18 12:12 ZYS1817 ICU-C12) Document 07/24/18 13:00 OFY4194 (Rec: 07/24/18 13:01 UQT5185 ICU-C12) Document 07/24/18 14:00 FDS5869 (Rec: 07/24/18 14:07 FNN7622 ICU-C12) Document 07/24/18 14:14 DTH0794 (Rec: 07/24/18 14:14 DZS2163 ICU-C12) Document 07/24/18 15:00 OBS6885 (Rec: 07/24/18 15:04 RED4694 ICU-C12) Document 07/24/18 16:34 PIL9521 (Rec: 07/24/18 16:34 YTQ7380 ICU-C12) Document 07/24/18 17:00 KGL7060 (Rec: 07/24/18 17:52 MZU6980 ICU-M27) Document 07/24/18 17:52 GDR6879 (Rec: 07/24/18 17:52 VFD7037 ICU-M27) Document 07/24/18 19:00 QLL6108 (Rec: 07/24/18 21:01 MDK4550 ICU-C15) Document 07/24/18 20:00 JIC8083 (Rec: 07/24/18 21:01 NHE1413 ICU-C15) Document 07/24/18 21:00 DXF4025 (Rec: 07/24/18 22:21 POP1329 ICU-C15) Document 07/24/18 22:00 SWQ2444 (Rec: 07/24/18 22:21 WRB0578 ICU-C15) Document 07/24/18 23:00 BDC9355 (Rec: 07/24/18 23:05 WLL9810 ICU-C15) Document 07/25/18 00:00 HME2668 (Rec: 07/25/18 00:02 FLE9200 ICU-C15) Document 07/25/18 01:00 TCA3471 (Rec: 07/25/18 01:21 NMB0848 ICU-C15) Document 07/25/18 02:00 BJM3408 (Rec: 07/25/18 02:51 CMO1919 ICU-C15) Document 07/25/18 03:00 ZEA1939 (Rec: 07/25/18 04:28 OAF9934 ICU-C15) Document 07/25/18 04:00 EUI6893 (Rec: 07/25/18 04:28 WCO5058 ICU-C15) Document 07/25/18 05:00 NOZ3721 (Rec: 07/25/18 05:03 JIA7534 ICU-C15) Document 07/25/18 06:00 HBQ7292 (Rec: 07/25/18 06:26 UMC2394 ICU-M27) Document 07/25/18 06:52 JGN3890 (Rec: 07/25/18 06:52 UNP7190 ICU-L03) Document 07/25/18 07:32 OGF2532 (Rec: 07/25/18 07:32 NKT6901 ICU-M27) Document 07/25/18 08:00 FBN6711 (Rec: 07/25/18 08:11 KXF8522 ICU-C25) Document 07/25/18 09:00 KXF0084 (Rec: 07/25/18 09:02 OOD0379 ICU-M27) Document 07/25/18 10:00 ZWU1043 (Rec: 07/25/18 10:33 VCS9785 ICU-M27) Document 07/25/18 12:00 ECS8911 (Rec: 07/25/18 12:28 RDR9465 ICU-M27) Document 07/25/18 13:00 GSH4369 (Rec: 07/25/18 13:27 CUU5401 ICU-C06) Document 07/25/18 14:00 UUQ7391 (Rec: 07/25/18 14:50 IYY1548 ICU-M27) Document 07/25/18 15:00 GHS4939 (Rec: 07/25/18 15:25 LUU4760 ICU-C25) Document 07/25/18 16:48 RXQ8397 (Rec: 07/25/18 16:48 IHT8871 ICU-M27) Document 07/25/18 18:03 ZFG1491 (Rec: 07/25/18 18:03 NIH5283 ICU-C25) Document 07/25/18 19:00 PIH8954 (Rec: 07/25/18 19:33 YIJ6634 ICU-M27) Document 07/25/18 20:00 JQJ7683 (Rec: 07/25/18 20:03 RVN2701 ICU-M27) Document 07/25/18 21:00 VMD9938 (Rec: 07/25/18 21:32 TLZ2207 ICU-C15) Document 07/25/18 22:00 TLY1401 (Rec: 07/25/18 22:04 IDN5552 ICU-C15) Document 07/25/18 23:00 XPI6747 (Rec: 07/25/18 23:18 DGT2730 ICU-C15) Document 07/26/18 00:00 TAD2804 (Rec: 07/26/18 00:03 BXH6391 ICU-M27) Document 07/26/18 01:00 JMI9556 (Rec: 07/26/18 01:05 ISN1161 ICU-C15) Document 07/26/18 02:00 ZAK6358 (Rec: 07/26/18 02:18 KMA3930 ICU-C15) Document 07/26/18 03:00 SLG3195 (Rec: 07/26/18 03:05 WDF5982 ICU-C15) Document 07/26/18 04:00 IWW7751 (Rec: 07/26/18 05:10 FSY5700 ICU-M27) Document 07/26/18 05:00 CLJ2611 (Rec: 07/26/18 05:10 SDE1677 ICU-M27) Document 07/26/18 06:00 TJY2584 (Rec: 07/26/18 06:09 KYS3720 ICU-C15) Document 07/26/18 07:00 HNW7953 (Rec: 07/26/18 07:24 ZWW2400 ICU-C12) Document 07/26/18 08:00 HKA7522 (Rec: 07/26/18 09:07 MKN5897 ICU-C12) Document 07/26/18 09:00 SZI8844 (Rec: 07/26/18 09:07 KMD1214 ICU-C12) Document 07/26/18 10:00 OBB7799 (Rec: 07/26/18 11:00 HFX0326 ICU-C12) Document 07/26/18 11:00 JOJ3221 (Rec: 07/26/18 11:00 DXS1967 ICU-C12) Document 07/26/18 15:00 UZI5522 (Rec: 07/26/18 15:08 JXF8395 ICU-C12) Document 07/26/18 16:00 RNH4889 (Rec: 07/26/18 16:04 KKZ3157 ICU-C12) Document 07/26/18 16:04 BDX4617 (Rec: 07/26/18 16:05 LJE2410 ICU-C12) Document 07/26/18 17:00 VIL8011 (Rec: 07/26/18 17:50 DEU5658 ICU-C12) Document 07/26/18 17:50 BLS8016 (Rec: 07/26/18 17:50 EFF2403 ICU-C12) Document 07/26/18 19:00 WNK0691 (Rec: 07/26/18 20:27 DXL4686 ICU-M27) Document 07/26/18 20:00 ZOF9918 (Rec: 07/26/18 20:27 WUH5676 ICU-M27) Document 07/26/18 21:00 FVZ1050 (Rec: 07/26/18 22:34 EEV7008 ICU-C25) Document 07/26/18 22:00 GGL5110 (Rec: 07/26/18 22:34 GWS4881 ICU-C25) Document 07/26/18 23:00 MGF1085 (Rec: 07/26/18 23:11 TXV9133 ICU-C25) Document 07/27/18 00:00 IBY5032 (Rec: 07/27/18 01:21 CWM0162 ICU-C25) Document 07/27/18 01:00 XOM0640 (Rec: 07/27/18 01:21 LJZ6166 ICU-C25) Document 07/27/18 02:00 MWU2067 (Rec: 07/27/18 06:14 HKO4170 ICU-C25) Document 07/27/18 03:00 NTB3945 (Rec: 07/27/18 06:14 MWB2131 ICU-C25) Document 07/27/18 04:00 HZR8756 (Rec: 07/27/18 06:14 TUA5532 ICU-C25) Document 07/27/18 05:00 JYO9526 (Rec: 07/27/18 06:14 VSX1048 ICU-C25) Document 07/27/18 06:00 ROU9121 (Rec: 07/27/18 06:14 MBE9972 ICU-C25) Document 07/27/18 07:00 PQW8236 (Rec: 07/27/18 07:48 CIA3634 ICU-M27) Document 07/27/18 08:10 ROL7191 (Rec: 07/27/18 10:26 HPV4372 ICU-C20) Document 07/27/18 09:00 RQL8433 (Rec: 07/27/18 10:28 FCD3285 ICU-C20) Document 07/27/18 10:00 DLD5946 (Rec: 07/27/18 12:34 QCU6053 ICU-C12) Document 07/27/18 11:00 UTQ4060 (Rec: 07/27/18 12:34 XCR8829 ICU-C12) Document 07/27/18 12:00 FXG9582 (Rec: 07/27/18 13:27 GDQ4722 ICU-C12) Document 07/27/18 13:00 LOC5804 (Rec: 07/27/18 13:29 DXC1130 ICU-C12) Document 07/27/18 14:00 MID0380 (Rec: 07/27/18 15:41 AZW2354 ICU-C12) Document 07/27/18 15:00 XRE1870 (Rec: 07/27/18 15:44 FKP6145 ICU-C12) Document 07/27/18 16:14 AME2166 (Rec: 07/27/18 16:14 PSK4949 ICU-C12) Document 07/27/18 17:00 IYX9321 (Rec: 07/27/18 18:39 WOU8210 ICU-C12) Document 07/27/18 18:00 MLT7565 (Rec: 07/27/18 18:40 YIJ2878 ICU-C12) Document 07/27/18 19:00 FUB2457 (Rec: 07/27/18 21:29 TFC3203 ICU-C14) Document 07/27/18 20:00 ZVZ0962 (Rec: 07/27/18 21:29 USG3183 ICU-C14) Document 07/27/18 21:00 WFR0007 (Rec: 07/27/18 21:29 QMO5248 ICU-C14) Document 07/27/18 22:00 YSS5350 (Rec: 07/27/18 22:27 VHE6789 ICU-C14) Document 07/27/18 23:00 CRG2202 (Rec: 07/28/18 05:25 KMD9020 ICU-C14) Document 07/28/18 00:00 XZH0240 (Rec: 07/28/18 05:25 JBR1876 ICU-C14) Document 07/28/18 01:00 SKW4592 (Rec: 07/28/18 05:25 TBN4750 ICU-C14) Document 07/28/18 02:00 WZR6649 (Rec: 07/28/18 05:25 RUH3266 ICU-C14) Document 07/28/18 03:00 FLZ1746 (Rec: 07/28/18 05:25 ENI9492 ICU-C14) Document 07/28/18 04:00 NSN9497 (Rec: 07/28/18 05:25 CGP1072 ICU-C14) Document 07/28/18 05:00 DXJ4080 (Rec: 07/28/18 05:25 BYI3778 ICU-C14) Document 07/28/18 06:00 UOS9094 (Rec: 07/28/18 07:24 EAH3940 ICU-C14) Document 07/28/18 07:00 LWS7789 (Rec: 07/28/18 07:24 CPN1610 ICU-C14) Document 07/28/18 09:00 NHO2378 (Rec: 07/28/18 11:12 KYK9162 ICU-M27) Document 07/28/18 10:00 WNR2217 (Rec: 07/28/18 11:13 MPZ6641 ICU-M27) Document 07/28/18 11:00 VWX2219 (Rec: 07/28/18 11:13 BOD3891 ICU-M27) Document 07/28/18 12:00 WYJ7523 (Rec: 07/28/18 16:15 LIK5097 ICU-M27) Document 07/28/18 13:00 CGQ1680 (Rec: 07/28/18 16:15 NMT4111 ICU-M27) Document 07/28/18 14:00 WSH1523 (Rec: 07/28/18 16:15 QPK3247 ICU-M27) Document 07/28/18 15:00 YIO8515 (Rec: 07/28/18 16:15 IGA5496 ICU-M27) Document 07/28/18 16:00 ESA4493 (Rec: 07/28/18 17:42 RFG0060 ICU-M27) Document 07/28/18 17:00 UHK7718 (Rec: 07/28/18 17:42 OQM8849 ICU-M27) Document 07/28/18 18:00 GQB9388 (Rec: 07/28/18 18:01 FJF3338 ICU-M27) Document 07/28/18 19:00 ZHV3258 (Rec: 07/28/18 19:34 SPL0507 ICU-C12) Document 07/28/18 20:00 UQW8027 (Rec: 07/28/18 20:35 NFH5434 ICU-C12) Document 07/28/18 21:00 IQZ0351 (Rec: 07/28/18 21:27 KOK6638 ICU-C12) Document 07/28/18 22:00 BSA8848 (Rec: 07/28/18 22:21 MYS2090 ICU-C12) Document 07/28/18 23:00 KQK0712 (Rec: 07/28/18 23:19 UJX1730 ICU-C12) Document 07/29/18 00:00 OMN2731 (Rec: 07/29/18 00:24 PUQ4686 ICU-C12) Document 07/29/18 01:00 UGK0753 (Rec: 07/29/18 01:20 YDL3146 ICU-C12) Document 07/29/18 02:00 SCB1260 (Rec: 07/29/18 02:46 EYV6642 ICU-C12) Document 07/29/18 03:00 IAL0940 (Rec: 07/29/18 03:16 MMU2351 ICU-C12) Document 07/29/18 04:00 ALA3718 (Rec: 07/29/18 04:07 IQP6675 ICU-C12) Document 07/29/18 05:00 CIX4141 (Rec: 07/29/18 05:44 RCW1894 ICU-C12) Document 07/29/18 06:00 III6140 (Rec: 07/29/18 06:15 EOT9730 ICU-C12) Document 07/29/18 06:16 OFY8480 (Rec: 07/29/18 06:17 QLA4964 ICU-C12) Document 07/29/18 06:17 DXI0074 (Rec: 07/29/18 06:17 JHB5170 ICU-C12) Document 07/29/18 07:00 MTM3130 (Rec: 07/29/18 08:17 VOB7243 ICU-M27) Document 07/29/18 08:00 AGM6245 (Rec: 07/29/18 08:17 BRI9189 ICU-M27) Document 07/29/18 09:00 AKS8376 (Rec: 07/29/18 09:11 OHX5699 ICU-M27) Document 07/29/18 10:00 OWZ7713 (Rec: 07/29/18 11:08 NXO4257 ICU-M27) Document 07/29/18 11:00 FZO2669 (Rec: 07/29/18 11:08 RHG8888 ICU-M27) Document 07/29/18 12:00 WYB6235 (Rec: 07/29/18 12:46 OUZ4870 ICU-M27) Document 07/29/18 13:00 ITP9350 (Rec: 07/29/18 13:26 PSI1179 ICU-M27) Document 07/29/18 14:00 WTK6168 (Rec: 07/29/18 14:16 GYD4770 ICU-M27) Document 07/29/18 15:00 TAL9318 (Rec: 07/29/18 15:40 PJD4042 ICU-M27) Document 07/29/18 16:00 XQV3721 (Rec: 07/29/18 16:42 ZDA1562 ICU-M27) Document 07/29/18 17:00 RHG2974 (Rec: 07/29/18 17:42 OJA8704 ICU-M27) Document 07/29/18 18:00 QZT6955 (Rec: 07/29/18 18:45 XKG2880 ICU-C15) Document 07/29/18 19:00 KVB0043 (Rec: 07/29/18 21:09 WQD8454 ICU-C12) Document 07/29/18 20:00 TAY0016 (Rec: 07/29/18 21:09 PTZ0101 ICU-C12) Document 07/29/18 21:00 MUZ8335 (Rec: 07/29/18 21:09 LPJ0614 ICU-C12) Document 07/29/18 22:00 XJO0181 (Rec: 07/29/18 22:21 AWE4844 ICU-C12) Document 07/29/18 23:00 YQT7431 (Rec: 07/30/18 00:45 MNL2531 ICU-C12) Document 07/30/18 00:00 YYX2622 (Rec: 07/30/18 00:45 CEV9050 ICU-C12) Document 07/30/18 01:00 UGB6454 (Rec: 07/30/18 04:53 FBZ9178 ICU-C12) Document 07/30/18 02:00 WBD3193 (Rec: 07/30/18 04:53 PQS8758 ICU-C12) Document 07/30/18 03:00 DOO1314 (Rec: 07/30/18 04:53 XQB4335 ICU-C12) Document 07/30/18 04:00 QWW9291 (Rec: 07/30/18 04:53 NJG5645 ICU-C12) Document 07/30/18 04:53 JPU8422 (Rec: 07/30/18 04:53 DLD5505 ICU-C12) Document 07/30/18 04:54 FXH2643 (Rec: 07/30/18 04:54 HSA4064 ICU-M22) Document 07/30/18 05:22 NUT4839 (Rec: 07/30/18 05:23 BWA9768 ICU-C12) Document 07/30/18 07:00 PWW5597 (Rec: 07/30/18 08:51 YXC6449 ICU-C25) Document 07/30/18 08:00 VOW4539 (Rec: 07/30/18 08:51 KIC7619 ICU-C25) Document 07/30/18 09:00 VOA2100 (Rec: 07/30/18 10:19 RJN1487 ICU-C25) Document 07/30/18 10:00 EHB2634 (Rec: 07/30/18 10:20 PKL9002 ICU-C25) Document 07/30/18 12:00 MIE0220 (Rec: 07/30/18 14:50 QDZ8406 ICU-C25) Document 07/30/18 13:00 BON9582 (Rec: 07/30/18 14:51 IZG4579 ICU-C25) Document 07/30/18 15:00 YWG5244 (Rec: 07/30/18 15:07 JJG8582 ICU-C25) Document 07/30/18 16:00 JRD9311 (Rec: 07/30/18 19:13 MCQ6868 ICU-C06) Document 07/30/18 17:00 RVO3358 (Rec: 07/30/18 19:13 LAG7564 ICU-C06) Document 07/30/18 19:00 AXH7129 (Rec: 07/30/18 22:52 WNS6364 ICU-C07) Document 07/30/18 23:00 GXC4985 (Rec: 07/30/18 23:28 YSX1946 ICU-C07) Document 07/30/18 23:28 SEJ6931 (Rec: 07/30/18 23:34 XRY5622 ICU-C07) Document 07/31/18 01:00 JPF7498 (Rec: 07/31/18 02:00 YST9190 ICU-C07) Document 07/31/18 03:48 JVC1161 (Rec: 07/31/18 03:59 KVO4865 ICU-C07) Document 07/31/18 05:21 IJI4452 (Rec: 07/31/18 05:23 VKR4581 ICU-M27) Document 07/31/18 07:00 ZRW2262 (Rec: 07/31/18 07:57 UQE5053 ICU-C25) Document 07/31/18 07:57 QZD0284 (Rec: 07/31/18 07:57 XFC9407 ICU-C25) Document 07/31/18 09:38 QGG1870 (Rec: 07/31/18 09:38 JOD3100 ICU-M27) Document 07/31/18 10:00 GEH2379 (Rec: 07/31/18 11:46 RBY6256 ICU-C25) Document 07/31/18 11:00 YWQ6156 (Rec: 07/31/18 11:46 WPR6433 ICU-C25) Document 07/31/18 12:00 HIP1065 (Rec: 07/31/18 13:45 GCM5210 ICU-C25) Document 07/31/18 13:00 ZZN9634 (Rec: 07/31/18 13:45 NNR2472 ICU-C25) Document 07/31/18 13:45 EVA9379 (Rec: 07/31/18 13:45 SPD2630 ICU-C25) Document 07/31/18 15:36 FWX7409 (Rec: 07/31/18 15:36 HFC1958 ICU-C25) Document 07/31/18 17:51 UQV3947 (Rec: 07/31/18 17:51 NCQ0318 ICU-M27) Document 07/31/18 19:00 UNS9691 (Rec: 07/31/18 22:29 CIC1088 ICU-M27) Document 07/31/18 20:00 WMV8167 (Rec: 07/31/18 22:29 IPW5485 ICU-M27) Document 07/31/18 21:00 WQD3557 (Rec: 07/31/18 22:29 IUY5566 ICU-M27) Document 07/31/18 22:00 MXT8810 (Rec: 07/31/18 22:29 FMU3030 ICU-M27) Document 07/31/18 23:00 CDS9344 (Rec: 07/31/18 23:29 QWJ4000 ICU-C14) Document 08/01/18 00:00 AKQ1983 (Rec: 08/01/18 00:16 GCX0946 ICU-M27) Document 08/01/18 01:00 YLR7159 (Rec: 08/01/18 01:45 MZH3335 ICU-C14) Document 08/01/18 02:00 AWP3239 (Rec: 08/01/18 02:37 LPV4845 ICU-C14) Document 08/01/18 03:00 SXI2587 (Rec: 08/01/18 03:15 QTZ2097 ICU-M27) Document 08/01/18 04:00 JHV5310 (Rec: 08/01/18 04:15 UAO0362 ICU-C14) Document 08/01/18 05:00 GNR2450 (Rec: 08/01/18 05:12 LRI1703 ICU-C14) Document 08/01/18 06:00 NSJ7875 (Rec: 08/01/18 06:43 ZWL8729 ICU-C14) Document 08/01/18 07:42 HUD2316 (Rec: 08/01/18 07:42 QUK9461 ICU-C12) Document 08/01/18 08:00 WPD0539 (Rec: 08/01/18 09:08 MPO4318 ICU-M27) Document 08/01/18 09:00 MCP1648 (Rec: 08/01/18 09:08 USJ2194 ICU-M27) Document 08/01/18 10:00 GTM7490 (Rec: 08/01/18 11:28 RHV7611 ICU-M27) Document 08/01/18 11:00 ENX5166 (Rec: 08/01/18 11:28 KIQ2842 ICU-M27) Document 08/01/18 13:24 RWM7319 (Rec: 08/01/18 13:24 WRO9062 ICU-M27) Document 08/01/18 14:00 MYL7166 (Rec: 08/01/18 14:58 RXV3082 ICU-M27) Document 08/01/18 14:58 GQK1461 (Rec: 08/01/18 14:58 CQX3275 ICU-M27) Document 08/01/18 15:40 WRB1662 (Rec: 08/01/18 15:40 JJH6905 ICU-C12) Document 08/01/18 17:00 UDY4168 (Rec: 08/01/18 18:23 EKH7800 ICU-C12) Document 08/01/18 18:00 UGV6085 (Rec: 08/01/18 18:23 PVN1435 ICU-C12) Document 08/01/18 19:00 BUM5737 (Rec: 08/01/18 20:14 XJJ7185 ICU-M27) Document 08/01/18 20:00 MXZ1956 (Rec: 08/01/18 20:14 ITS1289 ICU-M27) Document 08/01/18 21:00 LJT4216 (Rec: 08/01/18 23:28 QIT6179 ICU-C12) Document 08/01/18 22:00 BTI9241 (Rec: 08/01/18 23:28 RXI1759 ICU-C12) Document 08/01/18 23:40 DKF2184 (Rec: 08/01/18 23:43 ENJ1098 ICU-M27) Document 08/02/18 00:00 WRD9929 (Rec: 08/02/18 01:30 JTQ8747 ICU-C12) Document 08/02/18 01:00 TIB2387 (Rec: 08/02/18 01:30 NXY8613 ICU-C12) Document 08/02/18 02:00 QIZ3891 (Rec: 08/02/18 02:03 NXJ6810 ICU-M27) Document 08/02/18 03:00 SGL5030 (Rec: 08/02/18 03:40 HVJ6158 ICU-M27) Document 08/02/18 04:25 QUU8629 (Rec: 08/02/18 04:25 OYV3519 ICU-M27) Document 08/02/18 05:00 RAE7894 (Rec: 08/02/18 05:52 UUY6064 ICU-M27) Document 08/02/18 05:52 XXS8437 (Rec: 08/02/18 05:53 TTR5146 ICU-M27) Document 08/02/18 08:38 HTI8021 (Rec: 08/02/18 08:38 TKH5923 ICU-C12) Document 08/02/18 09:29 ANN2625 (Rec: 08/02/18 09:29 GXG3264 ICU-M27) Document 08/02/18 11:11 LDW8416 (Rec: 08/02/18 11:11 TXT6294 ICU-C12) Document 08/02/18 12:24 ZOI1057 (Rec: 08/02/18 12:24 YDD8686 ICU-M27) Document 08/02/18 13:21 REB4036 (Rec: 08/02/18 13:21 IFM0839 ICU-C12) Document 08/02/18 13:56 SAQ7079 (Rec: 08/02/18 13:56 RJC7261 ICU-M27) Document 08/02/18 15:00 ZHC0494 (Rec: 08/02/18 15:01 YXB3438 ICU-C12) Document 08/02/18 15:14 FCA9408 (Rec: 08/02/18 15:15 LCS0138 ICU-C12) Document 08/02/18 15:46 MSK7498 (Rec: 08/02/18 15:54 SIM1336 ICU-M27) Document 08/02/18 16:09 PEE5908 (Rec: 08/02/18 16:10 LFP1413 ICU-M27) Document 08/02/18 17:06 AGQ2639 (Rec: 08/02/18 17:06 YKW3481 ICU-C12) Document 08/02/18 18:01 VNC2872 (Rec: 08/02/18 18:01 WPA6653 ICU-C12) Document 08/02/18 19:00 IAT7500 (Rec: 08/02/18 19:15 MPO4151 ICU-C12) Document 08/02/18 20:00 ZRG8201 (Rec: 08/02/18 22:06 DCK2092 ICU-M27) Document 08/02/18 21:00 LSS8741 (Rec: 08/02/18 22:06 GXD9876 ICU-M27) Document 08/02/18 22:00 PGH9612 (Rec: 08/02/18 22:06 WGK4100 ICU-M27) Document 08/02/18 23:00 RJL1328 (Rec: 08/03/18 00:33 PEP6643 ICU-C12) Document 08/03/18 00:00 HJX1271 (Rec: 08/03/18 00:41 WBV6907 ICU-M27) Document 08/03/18 01:00 PMO8916 (Rec: 08/03/18 01:29 EWO7598 ICU-C12) Document 08/03/18 02:00 FKP5956 (Rec: 08/03/18 03:57 KUW5784 ICU-C12) Document 08/03/18 03:00 FKF2962 (Rec: 08/03/18 03:57 ITR4956 ICU-C12) Document 08/03/18 04:00 BQO2033 (Rec: 08/03/18 04:20 DRG8756 ICU-M27) Document 08/03/18 05:00 SXK4879 (Rec: 08/03/18 05:22 EFR8315 ICU-M27) Document 08/03/18 05:35 UTH6662 (Rec: 08/03/18 05:36 CAS5250 ICU-M27) Document 08/03/18 07:35 RNB0496 (Rec: 08/03/18 07:36 TNH2321 ICU-C12) Document 08/03/18 08:00 IOL9007 (Rec: 08/03/18 08:18 MSQ9398 ICU-M27) Document 08/03/18 08:47 UBV5770 (Rec: 08/03/18 08:48 PBJ9198 ICU-M27) Document 08/03/18 09:46 ZEQ4785 (Rec: 08/03/18 09:46 YRN3212 ICU-M27) Document 08/03/18 10:40 IBN1243 (Rec: 08/03/18 10:40 JXR3223 ICU-C12) Document 08/03/18 11:45 CPS5711 (Rec: 08/03/18 11:45 TWK2343 ICU-M27) Document 08/03/18 12:26 UID8485 (Rec: 08/03/18 12:26 EOW2400 ICU-M27) Document 08/03/18 12:59 TEN9882 (Rec: 08/03/18 12:59 QZX8966 ICU-C12) Document 08/03/18 13:46 DCP0026 (Rec: 08/03/18 13:46 XVQ4483 ICU-M27) Document 08/03/18 14:46 DBV2850 (Rec: 08/03/18 14:47 KSQ0020 ICU-M27) Document 08/03/18 15:49 DOE5672 (Rec: 08/03/18 15:50 MDS2531 ICU-M27) Document 08/03/18 16:52 ETP8014 (Rec: 08/03/18 16:52 YDR9749 ICU-M27) Document 08/03/18 17:58 UZI4611 (Rec: 08/03/18 17:58 JDO5447 ICU-M27) Document 08/03/18 19:00 ZNX3226 (Rec: 08/03/18 20:44 HZD1843 ICU-M27) Document 08/03/18 20:00 WBG6421 (Rec: 08/03/18 20:44 IWD9294 ICU-M27) Document 08/03/18 21:00 HGR9464 (Rec: 08/03/18 21:48 RYC2945 ICU-M27) Document 08/03/18 21:47 MVO5540 (Rec: 08/03/18 21:48 GDB6248 ICU-M27) Document 08/03/18 23:31 GLI8405 (Rec: 08/03/18 23:32 EAF6889 ICU-M27) Document 08/04/18 03:00 HGD7131 (Rec: 08/04/18 03:07 ZRP6307 ICU-C25) Document 08/04/18 04:00 YDE7698 (Rec: 08/04/18 05:23 KML8422 ICU-M27) Document 08/04/18 05:00 IVX3374 (Rec: 08/04/18 05:23 ZLS0655 ICU-M27) Document 08/04/18 06:00 FXF4713 (Rec: 08/04/18 06:17 EBG9022 ICU-C25) Document 08/04/18 07:00 GVZ1339 (Rec: 08/04/18 08:36 PUW1604 ICU-C12) Document 08/04/18 10:00 GVG5397 (Rec: 08/04/18 13:41 UQD0708 ICU-C12) Document 08/04/18 11:00 RXG4681 (Rec: 08/04/18 13:42 IBF4798 ICU-C12) Document 08/04/18 13:00 SZC0582 (Rec: 08/04/18 13:42 BFA9350 ICU-C12) Document 08/04/18 16:00 GNR0926 (Rec: 08/04/18 19:01 NFJ2081 ICU-C12) Document 08/04/18 18:00 XIM9988 (Rec: 08/04/18 19:01 YMB4164 ICU-C12) Document 08/04/18 20:00 CFI2044 (Rec: 08/04/18 22:34 EKZ3343 ICU-C25) Document 08/05/18 00:00 XMT3743 (Rec: 08/05/18 00:04 PAZ7832 ICU-C25) Document 08/05/18 03:00 TVM4225 (Rec: 08/05/18 03:50 RNL8891 ICU-C25) Document 08/05/18 03:59 DUZ4911 (Rec: 08/05/18 04:08 JOZ1892 ICU-C25) Document 08/05/18 05:00 VSM0777 (Rec: 08/05/18 05:38 WUL5222 ICU-C25) Document 08/05/18 05:55 UGC9929 (Rec: 08/05/18 06:36 ZLO5652 ICU-C25) Document 08/05/18 08:30 QDZ8025 (Rec: 08/05/18 09:35 XAJ2224 ICU-C10) Document 08/05/18 10:00 LAX4915 (Rec: 08/05/18 11:22 BMY7918 ICU-C10) Document 08/05/18 11:00 OYP7417 (Rec: 08/05/18 11:22 XSE8870 ICU-C10) Document 08/05/18 12:00 HKO8325 (Rec: 08/05/18 15:34 CLA4189 ICU-C10) Document 08/05/18 13:00 ZGP7958 (Rec: 08/05/18 15:34 ICM8566 ICU-C10) Document 08/05/18 14:00 HWQ8697 (Rec: 08/05/18 15:34 RUN4968 ICU-C10) Document 08/05/18 16:00 YDN8800 (Rec: 08/05/18 18:25 GBJ6298 ICU-C10) Document 08/05/18 17:00 PPD2956 (Rec: 08/05/18 18:25 SUQ6855 ICU-C10) Document 08/05/18 18:00 VGI1392 (Rec: 08/05/18 18:25 JMO2560 ICU-C10) Document 08/05/18 19:00 MBE8054 (Rec: 08/05/18 19:49 IZJ1423 ICU-M27) Document 08/05/18 20:00 PRA1093 (Rec: 08/05/18 20:51 TWK2371 ICU-M27) Document 08/05/18 21:00 XNU1910 (Rec: 08/05/18 21:16 MJO4702 ICU-M27) Document 08/05/18 22:00 XYY5992 (Rec: 08/05/18 22:11 DSV1276 ICU-M27) Document 08/05/18 23:00 JTP8580 (Rec: 08/05/18 23:16 GZB3676 ICU-M27) Document 08/06/18 00:00 OLZ9882 (Rec: 08/06/18 00:35 TVU3363 ICU-M27) Document 08/06/18 01:00 NEK9168 (Rec: 08/06/18 01:02 QCK8249 ICU-M27) Document 08/06/18 02:00 FNN6432 (Rec: 08/06/18 02:22 IEA3660 ICU-M27) Document 08/06/18 03:00 CAJ4453 (Rec: 08/06/18 03:04 DGJ4046 ICU-M27) Document 08/06/18 04:00 HEQ3553 (Rec: 08/06/18 04:06 LOO8089 ICU-M27) Document 08/06/18 05:00 ZGV4265 (Rec: 08/06/18 06:16 HSE6095 ICU-M30) Document 08/06/18 06:00 IBG5587 (Rec: 08/06/18 06:17 KDM7993 ICU-M30) Document 08/06/18 08:00 RUQ2245 (Rec: 08/06/18 11:13 ZRP4218 ICU-C15) Document 08/06/18 09:00 ZHN2239 (Rec: 08/06/18 11:13 YMX6063 ICU-C15) Document 08/06/18 10:00 YVT7697 (Rec: 08/06/18 11:13 DWS3102 ICU-C15) Document 08/06/18 11:00 ZPY8143 (Rec: 08/06/18 11:13 UZN5243 ICU-C15) Document 08/06/18 12:00 SYF3461 (Rec: 08/06/18 13:11 NLZ4515 ICU-C15) Document 08/06/18 12:15 ITC1081 (Rec: 08/06/18 12:15 GSW2784 ICU-C12) Document 08/06/18 13:00 EDS6196 (Rec: 08/06/18 13:01 XZY9354 ICU-M27) Document 08/06/18 14:00 ATE4199 (Rec: 08/06/18 14:05 XAN4586 ICU-C15) Document 08/06/18 14:52 AWW4926 (Rec: 08/06/18 14:52 JXZ5067 ICU-C14) Document 08/06/18 16:00 JSF3116 (Rec: 08/06/18 17:21 WLE7555 ICU-C15) Document 08/06/18 17:00 VRR4461 (Rec: 08/06/18 17:21 LGN2576 ICU-C15) Document 08/06/18 18:00 MML6325 (Rec: 08/06/18 19:23 EWR4443 ICU-C15) Document 08/06/18 19:00 RYH5179 (Rec: 08/06/18 20:32 MCZ3079 ICU-M27) Document 08/06/18 20:00 OYL9380 (Rec: 08/06/18 20:32 MZD2599 ICU-M27) Document 08/06/18 21:00 OWQ3654 (Rec: 08/06/18 22:24 TTZ4408 ICU-M27) Document 08/06/18 22:00 LHJ0960 (Rec: 08/06/18 22:24 SIJ2197 ICU-M27) Document 08/06/18 23:00 GML9634 (Rec: 08/07/18 02:38 ISE2861 ICU-L03) Document 08/07/18 00:00 ULN8468 (Rec: 08/07/18 02:38 TGT8388 ICU-L03) Document 08/07/18 01:00 OBF4434 (Rec: 08/07/18 02:38 FKT9030 ICU-L03) Document 08/07/18 02:00 HGW6415 (Rec: 08/07/18 02:38 WON6719 ICU-L03) Document 08/07/18 03:00 YNK7834 (Rec: 08/07/18 03:05 HLR4247 ICU-L03) Document 08/07/18 04:00 HFU4110 (Rec: 08/07/18 07:43 PPG7087 ICU-L03) Document 08/07/18 05:00 SFO3885 (Rec: 08/07/18 07:43 NUC2281 ICU-L03) Document 08/07/18 06:00 AYZ5738 (Rec: 08/07/18 07:43 PJC0432 ICU-L03) Document 08/07/18 07:00 CCN0948 (Rec: 08/07/18 07:43 NNV3601 ICU-L03) Document 08/07/18 08:00 KCI3045 (Rec: 08/07/18 08:23 SGM6731 ICU-C15) Document 08/07/18 09:00 HRA9850 (Rec: 08/07/18 09:12 WEW8820 ICU-M27) Document 08/07/18 09:59 YBU9344 (Rec: 08/07/18 09:59 MFH7189 ICU-M27) Document 08/07/18 11:00 JRG4408 (Rec: 08/07/18 11:15 RLE0042 ICU-M27) Document 08/07/18 12:00 SPS2904 (Rec: 08/07/18 12:03 TXQ7545 ICU-M27) Document 08/07/18 13:00 KAB8117 (Rec: 08/07/18 13:15 QYM4819 ICU-M27) Document 08/07/18 14:00 UPG3804 (Rec: 08/07/18 15:12 TTJ2120 ICU-M27) Document 08/07/18 15:00 QQN9420 (Rec: 08/07/18 15:16 LSB5662 ICU-M27) Document 08/07/18 15:20 BUN0515 (Rec: 08/07/18 15:31 BSO7621 ICU-C15) Document 08/07/18 17:00 XVD4546 (Rec: 08/07/18 17:33 IXE4605 ICU-M27) Document 08/07/18 19:51 FKI7662 (Rec: 08/07/18 19:51 MIP9189 ICU-M27) Document 08/07/18 21:00 UYY6460 (Rec: 08/07/18 21:22 JRL8065 ICU-C25) Document 08/07/18 22:00 BAT4777 (Rec: 08/08/18 00:33 WVV2885 ICU-C15) Document 08/07/18 23:00 ESJ7441 (Rec: 08/08/18 00:33 JWC5635 ICU-C15) Document 08/08/18 00:00 QRT3665 (Rec: 08/08/18 00:33 LKW0341 ICU-C15) Document 08/08/18 01:00 PEW4750 (Rec: 08/08/18 04:19 VDC3780 ICU-C15) Document 08/08/18 02:00 ALY0688 (Rec: 08/08/18 04:19 NHX4153 ICU-C15) Document 08/08/18 03:00 GRU9491 (Rec: 08/08/18 05:12 ABQ2061 ICU-M27) Document 08/08/18 04:00 GKU4161 (Rec: 08/08/18 05:12 RWR0321 ICU-M27) Document 08/08/18 05:00 GVE4759 (Rec: 08/08/18 05:12 AXL8823 ICU-M27) Document 08/08/18 06:00 KOH0225 (Rec: 08/08/18 06:38 NHM5962 ICU-M27) Document 08/08/18 06:44 IBH0297 (Rec: 08/08/18 06:44 FNX8671 ICU-C15) Document 08/08/18 07:00 YWP7273 (Rec: 08/08/18 08:59 STZ2007 ISDEMO-M03 ) Document 08/08/18 08:00 GYN1374 (Rec: 08/08/18 08:59 FOP4243 ISDEMO-M03 ) Document 08/08/18 09:00 IHO4920 (Rec: 08/08/18 11:34 RVI7259 ICU-C15) Document 08/08/18 10:00 YVM2424 (Rec: 08/08/18 11:34 ZUS6842 ICU-C15) Document 08/08/18 11:00 SKT8096 (Rec: 08/08/18 11:34 LEH2318 ICU-C15) Document 08/08/18 12:00 URL3994 (Rec: 08/08/18 12:20 OWY1473 ICU-C15) Document 08/08/18 13:00 BUA5672 (Rec: 08/08/18 14:52 CCV7984 ISDEMO-M03 ) Document 08/08/18 14:00 HKB0154 (Rec: 08/08/18 14:52 ASH2299 ISDEMO-M03 ) Document 08/08/18 15:00 HJL4433 (Rec: 08/08/18 15:30 AOW8278 ICU-C15) Document 08/08/18 16:00 LCH1938 (Rec: 08/08/18 17:02 CKQ2721 ICU-M27) Document 08/08/18 17:00 TDX2792 (Rec: 08/08/18 17:02 DVJ6088 ICU-M27) Document 08/08/18 18:00 JZU2431 (Rec: 08/08/18 18:14 SYI1696 ICU-C15) Document 08/08/18 22:28 VOE9654 (Rec: 08/08/18 22:28 LZA7142 ICU-C12) Document 08/09/18 01:25 IKT2499 (Rec: 08/09/18 01:26 IXB1567 ICU-M27) Document 08/09/18 05:00 KGC6795 (Rec: 08/09/18 05:08 AWA0961 ICU-M27) Document 08/09/18 06:42 KNB1054 (Rec: 08/09/18 06:46 XPV6249 ICU-M27) Document 08/09/18 07:51 GCR1236 (Rec: 08/09/18 07:51 DJU9181 ICU-C12) Document 08/09/18 09:00 UDC5522 (Rec: 08/09/18 11:04 WVC7416 ICU-C12) Document 08/09/18 10:00 WUP1816 (Rec: 08/09/18 11:04 WRG9725 ICU-C12) Document 08/09/18 11:00 XMK1329 (Rec: 08/09/18 11:05 MFT9868 ICU-C12) Document 08/09/18 12:00 JOC9422 (Rec: 08/09/18 12:09 ZKR2757 ICU-C12) Document 08/09/18 12:57 TZF9978 (Rec: 08/09/18 12:57 VOZ1961 ICU-M27) Document 08/09/18 14:00 UHT2847 (Rec: 08/09/18 14:12 VDM3614 ICU-M27) Document 08/09/18 15:00 IGP7812 (Rec: 08/09/18 15:03 RXC1128 ICU-C12) Document 08/09/18 16:00 PRO2451 (Rec: 08/09/18 17:50 FFG9917 ICU-C12) Document 08/09/18 17:00 RGS9589 (Rec: 08/09/18 17:50 RPZ0228 ICU-C12) Document 08/09/18 17:51 UCT5613 (Rec: 08/09/18 17:51 JYA6266 ICU-C12) Document 08/09/18 19:00 PPS7879 (Rec: 08/09/18 20:31 WOO2655 ICU-C15) Document 08/09/18 20:00 KJM5660 (Rec: 08/09/18 20:49 TPV7931 ICU-C15) Document 08/09/18 23:00 UEC4231 (Rec: 08/09/18 23:25 CBA3718 ICU-C15) Document 08/10/18 00:00 BCF4711 (Rec: 08/10/18 00:43 AVX3852 ICU-C15) Document 08/10/18 03:31 FLC3700 (Rec: 08/10/18 03:41 NTN8657 ICU-C15) Document 08/10/18 03:51 AFO6741 (Rec: 08/10/18 03:51 ANZ2928 ICU-M27) Document 08/10/18 08:00 JWQ8295 (Rec: 08/10/18 08:31 KDR8578 ICU-C25) Document 08/10/18 09:49 UEO7061 (Rec: 08/10/18 09:49 HMB0298 ICU-M27) Document 08/10/18 12:00 AUE7255 (Rec: 08/10/18 12:34 UAN8047 ICU-C25) Document 08/10/18 13:00 NEQ6458 (Rec: 08/10/18 14:11 USA2441 ICU-C25) Document 08/10/18 14:00 UGX8774 (Rec: 08/10/18 14:11 YVM9805 ICU-C25) Document 08/10/18 15:00 GQQ2975 (Rec: 08/10/18 15:04 VVD0957 ICU-C06) Document 08/10/18 16:00 UVN9739 (Rec: 08/10/18 18:14 PDQ5134 ICU-M27) Document 08/10/18 17:00 EHC1639 (Rec: 08/10/18 18:14 WPA4573 ICU-M27) Document 08/10/18 18:00 ODC0653 (Rec: 08/10/18 18:14 OFJ6729 ICU-M27) Document 08/10/18 19:00 WJM5330 (Rec: 08/10/18 22:07 TCH9960 ICU-M27) Document 08/10/18 20:00 UZJ9089 (Rec: 08/10/18 22:07 ZOB9925 ICU-M27) Document 08/10/18 21:00 NHC9248 (Rec: 08/10/18 22:07 RHW1457 ICU-M27) Document 08/10/18 22:00 RJD2349 (Rec: 08/10/18 22:07 TXR7928 ICU-M27) Document 08/10/18 23:00 XAO2073 (Rec: 08/11/18 00:29 SBZ6806 ICU-M27) Document 08/11/18 00:00 QHJ0142 (Rec: 08/11/18 00:29 QVE8105 ICU-M27) Document 08/11/18 01:00 FRM2492 (Rec: 08/11/18 01:51 VUP1991 ICU-M27) Document 08/11/18 01:50 NFU0339 (Rec: 08/11/18 01:51 IKU3167 ICU-M27) Document 08/11/18 03:00 BDO6834 (Rec: 08/11/18 04:26 JAL1165 ICU-M27) Document 08/11/18 04:00 IOZ4521 (Rec: 08/11/18 04:26 NPX7524 ICU-M27) Document 08/11/18 05:00 IQU8980 (Rec: 08/11/18 06:25 ZRF6997 ICU-M27) Document 08/11/18 06:00 QUN0526 (Rec: 08/11/18 06:25 WHL0463 ICU-M27) Document 08/11/18 07:00 AVS0948 (Rec: 08/11/18 08:12 CPW0735 ICU-C25) Document 08/11/18 09:00 XBO2459 (Rec: 08/11/18 09:01 [id number] ICU-C25) Document 08/11/18 09:41 [id number] (Rec: 08/11/18 09:42 [id number] ICU-M23) Labs: Laboratory Results - last 24 hr 08/10/18 08/10/18 08/10/18 10:05 10:05 12:16 INR (Anticoag Therapy) VBG pH 7.41 VBG pCO2 52 H VBG pO2 44.0 VBG HCO3 29.6 H VBG O2 Saturation 72.2 VBG Base Excess 6.9 H Sodium 147 H Potassium 3.1 L Chloride 110 Carbon Dioxide 32 Anion Gap 5 BUN 14 Creatinine 0.36 L Est GFR ( Amer) 210.4 Est GFR (Non-Af Amer) 173.9 BUN/Creatinine Ratio 38.9 H Glucose 126 H POC Glucose (mg/dL) 160 H Calcium 8.3 L Phosphorus 2.3 L Magnesium 1.9 08/10/18 08/10/18 08/11/18 16:10 18:09 06:14 INR (Anticoag Therapy) VBG pH VBG pCO2 VBG pO2 VBG HCO3 VBG O2 Saturation VBG Base Excess Sodium 147 H 147 H Potassium 3.8 3.6 Chloride 112 H 111 Carbon Dioxide 34 H 34 H Anion Gap 1 L 2 BUN 14 14 Creatinine 0.39 L 0.33 L Est GFR ( Amer) 191.8 232.6 Est GFR (Non-Af Amer) 158.5 192.2 BUN/Creatinine Ratio 35.9 H 42.4 H Glucose 123 H 133 H POC Glucose (mg/dL) 152 H Calcium 8.0 L 8.1 L Phosphorus 2.3 L Magnesium 1.9 08/11/18 08/11/18 06:14 06:42 INR (Anticoag Therapy) 1.34 H VBG pH VBG pCO2 VBG pO2 VBG HCO3 VBG O2 Saturation VBG Base Excess Sodium Potassium Chloride Carbon Dioxide Anion Gap BUN Creatinine Est GFR ( Amer) Est GFR (Non-Af Amer) BUN/Creatinine Ratio Glucose POC Glucose (mg/dL) 142 H Calcium Phosphorus Magnesium Studies: CXR 08/11: persistent opacities bilaterally with increased blunting of the LLL 08/10: - Duplex UE/LE to r/o DVT 08/10 negative 08/07: persistent opacities bilaterally with improvement in the bases R>L compared to 08/04 CXR 08/04: Increased bilateral alveolar opacities compared to prior study Nutrition: TF: Glucerna 1.2 argelia Goal of 55cc/h via PEG Tube FWF 150 cc/q4h Impression: Acute encephalopathy Critical illness neuromyopathy Prolonged mechanical ventilation Hypoxemic respiratory failure Pulmonary edema, anasarca New increased blunting of LLL suggestive of pleural effusion Diarrhea nausea C-Diff associated diarrhea (CDAD) malnutrition Peg tube placement 08/07 Electrolyte abnormalities- hypernatremia, hypokalemia, hypomagnesemia, hypophosphatemia LUE DVT Plan: # Acute encephalopathy # Critical illness neuromyopathy # hx/o depression Improving mental status grossly - off precedex since 08/07 - on citalopram -PT/OT pending # Prolonged mechanical ventilation # Hypoxemic respiratory failure # Pulmonary edema, anasarca # PNA # L LL blunting suggestive of pleural effusion Tolerated TM ~2 days since 08/09, tolerated PMV. Currently on FIO2 40% - RT for trach care - Ok to rest on vent if she tires out - s/p abx tx. Afebrile (Tmax 100.2-->99.7), resp status improving to stable, and no leukocytosis- hold new abx. Will attribute new RCX Staph aureus and KPNA as possible colonizer. -Continue Lasix 20 mg daily. Monitory I/O. Caution with contraction alkalosis (HCO3 34) # Diarrhea # C-Diff associated diarrhea (CDAD) # Malnutrition # s/p Peg tube placement 08/07 - c/w oral vanc (till 08/14)and s/p IV flagyl for total of 14 days - fiber (guar gum) with TF - increase protein supplementation (beneprotein TID) via PEG tube (nutrition input) # nausea due to high TF rate vs med induced - prn zofran # Electrolyte abnormalities- hypernatremia, hypokalemia, hypomagnesemia, hypophosphatemia low enteral intake +/- diuretic induced - check BMP, Mg, phos - replace electrolytes - FWF 150 cc/q4h via peg tube 08/10 # HTN - on atenolol, lisinopril - prn hydralazine # Skin breakdown tape allergy -wound care recs - protein dietary supplementation - routine nursing skin care mgmt # LUE DVT on lovenox tx. Started warfarin 08/10 -target INR 2-3 DVT PPX: Enoxaparin GI ppx: famotidine Prognosis: Guarded Dispo: transfer to short stay today. Anticipate discharge to [facility] facility/ [facility] if able to tolerate TC for >48 h Critical care issues: acute respiratory failure due to hypoxemia, mechanical ventilation, precedex Critical Care Time: 40 min
[2018-08-11] MEDS: Ondansetron INJ* 2 MG/ML VIAL IV PRN (10:57)
[2018-08-11] MEDS ORDERED: Potassium Phosphate IV* 15 MMOLE in NS 0.9% 250 ML* 250 ML IVPB ONE (11:30)
[2018-08-11] MEDS ORDERED: Potassium Chloride LIQUID* 20 MEQ PACKET PO SCH (12:00)
[2018-08-11] MEDS ORDERED: Potassium Chloride LIQUID* 20 MEQ PACKET PO ONE (12:15)
[2018-08-11] MEDS ORDERED: Warfarin TAB(*) 4 MG PO ONE (17:00)
--- NOTE | 2018-08-11 18:23 | PN ---
Progress Note - Progress Note Date of Service: 08/11/18 Note: GI FOLLOWUP post-PEG check, pt seems to be tolerating TF well; minimal residuals; site looks good; family in room VSS +BS, soft, NT/ND, site cleandryintact s/p PEG; doing well Unfortunately, pt was without nutrition from Tuesday, the day of the peg placement until Tue @1800, when PEG was cleared by GI, signout was left for [facility] GI doctor for Tuesday to clear the PEG and ICU nurses had asked [facility] GI to come by on Tuesday to clear the PEG for use. thankfully, pt seems to not have suffered any ill effects from nutrition being withheld; doing well from GI and nutritional standpoint will sign off, please call with any ? thanks, Chicho Avila MD
[2018-08-11] MEDS ORDERED: OFLOXACIN 0.3% BOTH EYES SCH (21:00)
[2018-08-11] MEDS: Ciprofloxacin 0.3% OPTH.SOL* 2.5 ML BTL BOTH EYES SCH ×2 (21:16→23:55)
[2018-08-12] MEDS: Insulin LISPRO* 1 UNITS UNIT SUBCUT SCH ×4 (00:01→18:16)
[2018-08-12] MEDS: Ciprofloxacin 0.3% OPTH.SOL* 2.5 ML BTL BOTH EYES SCH ×5 (05:01→21:26)
[2018-08-12 05:30] LABS: Hematocrit 29 % (35-47); Hemoglobin 9.2 g/dl (12.0-16.0); Mean Platelet Volume 8.6 fL (7.4-10.4); Platelet Count 366 10^3/ul (150-450)
[2018-08-12 05:34] LABS: INR 1.29 (0.77-1.02)
[2018-08-12 05:36] LABS: BUN/Creatinine Ratio 45.5 (8-20); Calcium 8.1 mg/dL (8.6-10.3); EGFR African American 232.6 (>60); EGFR Non-African American 192.2 (>60); Phosphorus 3.1 mg/dL (2.5-5.0)
[2018-08-12] MEDS: Levothyroxine TAB* 150 MCG TAB NG TUBE SCH (05:47)
[2018-08-12] MEDS: Acetaminophen ADULT LIQ* 650 MG/20.3 ML UDC FEED TUBE PRN ×2 (07:38→22:43)
[2018-08-12] MEDS: Furosemide IV* 10 MG/ML 2 ML VIAL (20 MG) IV SCH (10:15)
[2018-08-12] MEDS: Citalopram TAB* 20 MG PO SCH (10:16)
[2018-08-12] MEDS: Lisinopril TAB* 10 MG PO SCH (10:16)
[2018-08-12] MEDS: Potassium Chloride LIQUID* 20 MEQ PACKET PO SCH (10:16)
[2018-08-12] MEDS: Atenolol TAB* 25 MG PO SCH ×2 (10:17→21:27)
[2018-08-12] MEDS: VANCOMYCIN PO SCH ×4 (10:17→21:28)
[2018-08-12] MEDS: Lactobacillus Acidophilus* 1 TAB PO SCH (10:17)
[2018-08-12] MEDS: amLODIPine TAB* 5 MG PO SCH (10:17)
[2018-08-12] MEDS: FIBER SUPPLEMENT G TUBE SCH (10:17)
[2018-08-12] MEDS: Famotidine TAB* 20 MG PO SCH (10:17)
[2018-08-12] MEDS: Enoxaparin(*) 80 MG/0.8 ML SYR SUBCUT SCH ×2 (10:18→21:29)
[2018-08-12] MEDS: Nystatin CREAM* 15 GM TUBE TOPICAL SCH ×3 (10:18→21:29)
--- NOTE | 2018-08-12 12:41 | PN ---
Subjective Date of Service: 08/12/18 Interval History: Patient transferred from ICU to floor yesterday after admission for pneumonia, sepsis, complicated by respiratory failure, C diff. Patient now has trach and G-tube. She cannot talk, even with trach occluded. She cannot write on whiteboard or point at letters on a board. She admits to SOB by nodding. Reports diarrhea. Aide states loose stools X2 today. Family History: Unchanged from Admission Social History: Unchanged from Admission Past Medical History: Unchanged from Admission Objective Active Medications: Acetaminophen (Tylenol Adult Liq*) 650 mg FEED TUBE Q6H PRN PRN Reason: FEVER/PAIN Last Admin: 08/12/18 07:38 Dose: 650 mg Albuterol/Ipratropium (Duoneb (Albuterol 2.5 Mg/Ipratropium 0.5 Mg)) 1 neb INH [id number] AWAKE PRN PRN Reason: SOB/WHEEZING Amlodipine Besylate (Norvasc Tab*) 10 mg PO DAILY [facility] Last Admin: 08/12/18 10:17 Dose: 10 mg Atenolol (Tenormin Tab*) 25 mg PO BID [facility] Last Admin: 08/12/18 10:17 Dose: 25 mg Bacitracin (Bacitracin Ointment*) 1 applic TOPICAL BID [facility] Last Admin: 08/11/18 21:26 Dose: 1 applic Ciprofloxacin HCl (Cipro 0.3% Opth*) 1 drop BOTH EYES Q4H [facility] Last Admin: 08/12/18 11:53 Dose: 1 drop Citalopram Hydrobromide (Celexa Tab*) 20 mg PO DAILY [facility] Last Admin: 08/12/18 10:16 Dose: 20 mg Dextrose (D50w Syringe 50 Ml*) 12.5 gm IV PUSH .FOR FS < 60 - SS PRN PRN Reason: FS < 60 Enoxaparin Sodium (Lovenox(*)) 75 mg SUBCUT Q12H [facility] Last Admin: 08/12/18 10:18 Dose: 75 mg Famotidine (Pepcid Tab*) 20 mg PO DAILY [facility] Last Admin: 08/12/18 10:17 Dose: 20 mg Fentanyl Citrate (Fentanyl*) 50 mcg IV SLOW PU Q4H PRN PRN Reason: PAIN - BREAKTHROUGH Last Admin: 08/09/18 18:26 Dose: 50 mcg Furosemide (Lasix Iv*) 20 mg IV DAILY [facility] Last Admin: 08/12/18 10:15 Dose: 20 mg Heparin Sodium (Porcine) (Heparin Flush Picc/Ml/Cvc(*)) 1 - 3 ml FLUSH 0600, 1800 [facility]; Protocol Last Admin: 08/12/18 05:08 Dose: 3 ml Hydralazine HCl (Apresoline Iv*) 10 mg IV SLOW PU Q6H PRN PRN Reason: BLOOD PRESSURE Hydrocortisone (Hytone Cream 1%*) 1 applic TOPICAL BID PRN PRN Reason: HEMORRHOIDS Insulin Human Lispro (Humalog*) 0 units SUBCUT FS Q6 ICU [facility]; Protocol Last Admin: 08/12/18 05:50 Dose: Not Given Lactobacillus Rhamnosus (Lactobacillus Acidophilus*) 1 tab PO DAILY [facility] Last Admin: 08/12/18 10:17 Dose: 1 tab Levothyroxine Sodium (Synthroid Tab*) 150 mcg NG TUBE DAILY@0600 [facility] Last Admin: 08/12/18 05:47 Dose: 150 mcg Lisinopril (Prinivil Tab*) 40 mg PO DAILY [facility] Last Admin: 08/12/18 10:16 Dose: 40 mg Fiber Supplement ( (Guar Gum)) 1 dose G TUBE DAILY [facility] Last Admin: 08/12/18 10:17 Dose: 1 dose Nystatin (Nystatin Cream*) 1 applic TOPICAL TID [facility] Last Admin: 08/12/18 10:18 Dose: 1 applic Ondansetron HCl (Zofran Inj*) 4 mg IV Q4H PRN PRN Reason: NAUSEA Last Admin: 08/11/18 10:57 Dose: 4 mg Polyvinyl Alcohol (Polyvinyl Alcohol 1.4% Opth*) 1 drop BOTH EYES Q2H PRN PRN Reason: DRY EYE Last Admin: 08/10/18 09:27 Dose: 1 drop Potassium Chloride (Klor-Con Liquid*) 40 meq PO DAILY [facility] Last Admin: 08/12/18 10:16 Dose: 40 meq Vancomycin HCl (Firvanq*) 125 mg PO QID [facility] Stop: 08/14/18 09:01 Last Admin: 08/12/18 10:17 Dose: 125 mg Warfarin Sodium (Coumadin Tab(*)) 5 mg PO 1700 [facility] Stop: 08/12/18 17:01 Vital Signs - 8 hr 08/12/18 08/12/18 08/12/18 04:45 08:11 10:01 Temperature 36.6 C 36.9 C Pulse Rate 72 70 Respiratory 18 18 20 Rate Blood Pressure 129/64 112/62 (mmHg) O2 Sat by Pulse 96 91 Oximetry Oxygen Devices in Use Now: Tracheostomy Collar Appearance: Alert, follows command, makes eye contact Eyes: No Scleral Icterus Ears/Nose/Mouth/Throat: Clear Oropharnyx Neck: - - trach midline, functioning Respiratory: Clear to Auscultation Cardiovascular: NL Sounds; No Murmurs; No JVD Abdominal: NL Sounds; No Tenderness; No Distention, - - G-tube present LUQ Lymphatic: No Cervical Adenopathy Extremities: - - edema in UE, LE 1+ symmetric Skin: No Rash or Ulcers Lines/Tubes/Other Access: Clean, Dry and Intact Peripheral IV Nutrition: Taking PO's Result Diagrams: 08/12/18 05:05 08/12/18 05:05 Additional Lab and Data: Laboratory Tests 08/11/18 08/11/18 08/12/18 06:14 11:40 05:05 INR (Anticoag Therapy) 1.34 H 1.29 H VBG pH 7.38 VBG pCO2 55 H VBG pO2 41.0 VBG HCO3 28.8 H Microbiology and Other Data: Microbiology 08/07/18 11:36 Sputum Trach Gram Stain - Final 08/07/18 11:36 Sputum Trach Sputum Culture - Final Staphylococcus Aureus Klebsiella Pneumoniae 08/02/18 10:57 Stool Stool Gross Appearance - Final 08/02/18 10:57 Stool C. difficile DNA Amplification - Final 027 Presumptive NEGATIVE Toxigenic C.diff NEGATIVE 07/27/18 18:05 Stool Stool Gross Appearance - Final 07/27/18 18:05 Stool C. difficile DNA Amplification - Final 027 Presumptive NEGATIVE Toxigenic C.diff POSITIVE 07/26/18 14:26 Bronch Lavage - Right Upper Lobe Gram Stain - Final 07/26/18 14:26 Bronch Lavage - Right Upper Lobe Bronchoalveolar Lavage Cult , Quant - Final Liudmila Albicans 07/26/18 13:14 Catheter Tip Catheter Tip Culture - Final Liudmila Albicans Diagnostic Imaging: CXR 08/11: improved bilat infiltrates Assess/Plan/Problems-Billing Assessment: 78 yo woman who has been in hospital for nearly 1 month, post ICU stay through yesterday, due to pneumonia, resp failure, C diff. 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 -Will need acute rehab, PT to see on floor (3) Acute kidney injury Current Visit: Yes Status: Acute Priority: Low Code(s): N17.9 - ACUTE KIDNEY FAILURE, UNSPECIFIED SNOMED Code(s): 60997258 Comment: Resolved, volume repleted, now appears volume overloaded (4) Deep vein thrombosis (DVT) of left upper extremity Current Visit: Yes Status: Acute Priority: High Code(s): I82.622 - ACUTE EMBOLISM AND THROMBOSIS OF DEEP VEINS OF L UP EXTREM SNOMED Code(s): 988903073 Comment: -On Lovenox at treatment dose -INR not at goal, pharmacy will increase warfarin (5) Malnutrition Current Visit: Yes Status: Acute Priority: Medium Code(s): E46 - UNSPECIFIED PROTEIN-CALORIE MALNUTRITION SNOMED Code(s): 08142015 Comment: -Now has G-tube, tolerating feeds w/ some loose stools (6) C. difficile diarrhea Current Visit: Yes Status: Acute Priority: Medium Code(s): A04.72 - ENTEROCOLITIS D/T CLOSTRIDIUM DIFFICILE, NOT SPCF RECUR SNOMED Code(s): 1238872753091 Comment: -Remains on oral vancomycin for prolonged course -repeat test was negative Status and Disposition: Will need acute rehab at [facility]
[2018-08-12] MEDS: Bacitracin OINTMENT* 0.5% 0.5 oz TUBE TOPICAL SCH ×2 (13:57→21:27)
[2018-08-12] MEDS ORDERED: Warfarin TAB(*) 5 MG PO ONE (17:00)
[2018-08-12] MEDS: Nystatin SUSPENSION* 100000 UNITS/ML 5 ML UDC PO SCH ×2 (17:59→21:28)
[2018-08-12] MEDS ORDERED: Furosemide IV* 10 MG/ML 2 ML VIAL (20 MG) IV ONE (18:25)
[2018-08-12] MEDS ORDERED: Furosemide IV* 10 MG/ML 2 ML VIAL (20 MG) ONE (18:26)
--- NOTE | 2018-08-12 18:29 | PN ---
Progress Note - Progress Note Date of Service: 08/12/18 Note: Called to see patient at 6PM. She desaturated to 60% on trach mask. Had suctioning by RT, and increased O2, now sat is 91 % on 100% TM. No resp distress, not diaphoretic VSS otherwise Lungs: diminished bilat Heart; RRR, no murmur 2+ pitting edema UE, LE I/O positive 2 L CXR: improved LT effusion, more pulmonary edema on RT A/P: hypoxia, volume overload. Will give lasix 20 mg IV now. Start diamox tomorrow due to contraction alkalosis. May need to rest on vent in ICU overnight. Discussed case with Dr. Alegre fully. Will try diuresis first on medical floor.
[2018-08-12] MEDS: Albuterol 2.5 MG/3 ML NEB.SOL* (0.083%) INH PRN ×2 (19:42→23:11)
[2018-08-12] MEDS: Acetylcysteine INHALATION SOL* 200 MG/ML NEB.SOLN 10 ML INH SCH ×2 (19:42→23:11)
[2018-08-12] MEDS ORDERED: ACETAZOLAMIDE IVPB SCH (21:00)
[2018-08-12] MEDS ORDERED: NS 0.9% IVPB SCH (21:00)
[2018-08-12] MEDS: Nystatin OINT* 15 GM TOPICAL SCH (21:28)
[2018-08-13] MEDS: Ciprofloxacin 0.3% OPTH.SOL* 2.5 ML BTL BOTH EYES SCH ×6 (00:16→21:44)
[2018-08-13] MEDS: Insulin LISPRO* 1 UNITS UNIT SUBCUT SCH ×4 (00:16→17:39)
[2018-08-13] MEDS: Acetaminophen ADULT LIQ* 650 MG/20.3 ML UDC FEED TUBE PRN ×2 (04:52→21:49)
[2018-08-13] MEDS: Levothyroxine TAB* 150 MCG TAB NG TUBE SCH (04:52)
[2018-08-13 05:37] LABS: INR 1.29 (0.77-1.02)
[2018-08-13 05:50] LABS: Calcium 8.3 mg/dL (8.6-10.3); EGFR African American 217.3 (>60); EGFR Non-African American 179.6 (>60); Magnesium 1.9 mg/dL (1.9-2.7); Phosphorus 2.9 mg/dL (2.5-5.0); Potassium 3.8 mmol/L (3.5-5.0)
[2018-08-13] MEDS: Albuterol 2.5 MG/3 ML NEB.SOL* (0.083%) INH PRN ×3 (07:48→19:21)
[2018-08-13] MEDS: Acetylcysteine INHALATION SOL* 200 MG/ML NEB.SOLN 10 ML INH SCH ×3 (07:49→19:20)
[2018-08-13] MEDS: Lisinopril TAB* 10 MG PO SCH (08:23)
[2018-08-13] MEDS: Citalopram TAB* 20 MG PO SCH (08:24)
[2018-08-13] MEDS: amLODIPine TAB* 5 MG PO SCH (08:24)
[2018-08-13] MEDS: Potassium Chloride LIQUID* 20 MEQ PACKET PO SCH (08:24)
[2018-08-13] MEDS: Atenolol TAB* 25 MG PO SCH ×2 (08:24→21:49)
[2018-08-13] MEDS: Lactobacillus Acidophilus* 1 TAB PO SCH (08:24)
[2018-08-13] MEDS: Famotidine TAB* 20 MG PO SCH (08:24)
[2018-08-13] MEDS: Bacitracin OINTMENT* 0.5% 0.5 oz TUBE TOPICAL SCH ×2 (08:25→21:50)
[2018-08-13] MEDS: Enoxaparin(*) 80 MG/0.8 ML SYR SUBCUT SCH ×2 (08:25→22:08)
[2018-08-13] MEDS: Nystatin SUSPENSION* 100000 UNITS/ML 5 ML UDC PO SCH ×4 (08:26→21:49)
[2018-08-13] MEDS: Furosemide IV* 10 MG/ML 2 ML VIAL (20 MG) IV SCH (08:26)
[2018-08-13] MEDS: FIBER SUPPLEMENT G TUBE SCH (08:27)
[2018-08-13] MEDS: VANCOMYCIN PO SCH ×4 (08:27→21:49)
[2018-08-13] MEDS: Nystatin OINT* 15 GM TOPICAL SCH ×3 (08:27→21:50)
[2018-08-13] MEDS: Nystatin CREAM* 15 GM TUBE TOPICAL SCH ×3 (08:59→21:50)
[2018-08-13] MEDS: NS 0.9% IVPB SCH ×2 (10:27→21:42)
[2018-08-13] MEDS: ACETAZOLAMIDE IVPB SCH ×2 (10:27→21:42)
--- NOTE | 2018-08-13 13:26 | PN ---
Subjective Date of Service: 08/13/18 Interval History: Patient can nod yes/no due to trach. She denies new issues, mouths the word "better." Son called, wants an update. Did not require transfer back to ICU last night. Family History: Unchanged from Admission Social History: Unchanged from Admission Past Medical History: Unchanged from Admission Objective Active Medications: Acetaminophen (Tylenol Adult Liq*) 650 mg FEED TUBE Q6H PRN PRN Reason: FEVER/PAIN Last Admin: 08/13/18 04:52 Dose: 650 mg Acetylcysteine (Mucomyst Inhalation Lindy*) 400 mg INH Q6H [facility] Last Admin: 08/13/18 12:57 Dose: 400 mg Albuterol (Ventolin 2.5 Mg/3 Ml Neb.Lindy*) 2.5 mg INH Q4H PRN PRN Reason: SOB/WHEEZING Last Admin: 08/13/18 12:57 Dose: 2.5 mg Amlodipine Besylate (Norvasc Tab*) 10 mg PO DAILY [facility] Last Admin: 08/13/18 08:24 Dose: 10 mg Atenolol (Tenormin Tab*) 25 mg PO BID [facility] Last Admin: 08/13/18 08:24 Dose: 25 mg Bacitracin (Bacitracin Ointment*) 1 applic TOPICAL BID [facility] Last Admin: 08/13/18 08:25 Dose: 1 applic Ciprofloxacin HCl (Cipro 0.3% Opth*) 1 drop BOTH EYES Q4H [facility] Last Admin: 08/13/18 12:45 Dose: 1 drop Citalopram Hydrobromide (Celexa Tab*) 20 mg PO DAILY [facility] Last Admin: 08/13/18 08:24 Dose: 20 mg Dextrose (D50w Syringe 50 Ml*) 12.5 gm IV PUSH .FOR FS < 60 - SS PRN PRN Reason: FS < 60 Enoxaparin Sodium (Lovenox(*)) 75 mg SUBCUT Q12H [facility] Last Admin: 08/13/18 08:25 Dose: 75 mg Famotidine (Pepcid Tab*) 20 mg PO DAILY [facility] Last Admin: 08/13/18 08:24 Dose: 20 mg Fentanyl Citrate (Fentanyl*) 50 mcg IV SLOW PU Q4H PRN PRN Reason: PAIN - BREAKTHROUGH Last Admin: 08/09/18 18:26 Dose: 50 mcg Furosemide (Lasix Iv*) 20 mg IV DAILY [facility] Last Admin: 08/13/18 08:26 Dose: 20 mg Heparin Sodium (Porcine) (Heparin Flush Picc/Ml/Cvc(*)) 1 - 3 ml FLUSH 0600, 1800 [facility]; Protocol Last Admin: 08/13/18 04:52 Dose: 3 ml Hydralazine HCl (Apresoline Iv*) 10 mg IV SLOW PU Q6H PRN PRN Reason: BLOOD PRESSURE Hydrocortisone (Hytone Cream 1%*) 1 applic TOPICAL BID PRN PRN Reason: HEMORRHOIDS Acetazolamide Sodium 125 mg/ (Sodium Chloride) 50 mls @ 100 mls/hr IVPB Q12HR [facility] Stop: 08/16/18 08:59 Last Admin: 08/13/18 10:27 Dose: 100 mls/hr Insulin Human Lispro (Humalog*) 0 units SUBCUT FS Q6 ICU [facility]; Protocol Last Admin: 08/13/18 12:23 Dose: Not Given Lactobacillus Rhamnosus (Lactobacillus Acidophilus*) 1 tab PO DAILY [facility] Last Admin: 08/13/18 08:24 Dose: 1 tab Levothyroxine Sodium (Synthroid Tab*) 150 mcg NG TUBE DAILY@0600 [facility] Last Admin: 08/13/18 04:52 Dose: 150 mcg Lisinopril (Prinivil Tab*) 40 mg PO DAILY [facility] Last Admin: 08/13/18 08:23 Dose: 40 mg Fiber Supplement ( (Guar Gum)) 1 dose G TUBE DAILY [facility] Last Admin: 08/13/18 08:27 Dose: 1 dose Nystatin (Nystatin Cream*) 1 applic TOPICAL TID [facility] Last Admin: 08/13/18 08:59 Dose: 1 applic Nystatin (Nystatin Suspension*) 100,000 units PO QID [facility] Last Admin: 08/13/18 12:46 Dose: 100,000 units Nystatin (Nystatin Oint*) 1 applic TOPICAL TID [facility] Last Admin: 08/13/18 08:27 Dose: 1 applic Ondansetron HCl (Zofran Inj*) 4 mg IV Q4H PRN PRN Reason: NAUSEA Last Admin: 08/11/18 10:57 Dose: 4 mg Pharmacy Profile Note (Coumadin Per Pharmacy*) 1 note FOLLOW UP 1700 [facility] Last Admin: 08/12/18 17:59 Dose: 1 note Polyvinyl Alcohol (Polyvinyl Alcohol 1.4% Opth*) 1 drop BOTH EYES Q2H PRN PRN Reason: DRY EYE Last Admin: 08/10/18 09:27 Dose: 1 drop Potassium Chloride (Klor-Con Liquid*) 40 meq PO DAILY [facility] Last Admin: 08/13/18 08:24 Dose: 40 meq Vancomycin HCl (Firvanq*) 125 mg PO QID [facility] Stop: 08/14/18 09:01 Last Admin: 08/13/18 12:45 Dose: 125 mg Warfarin Sodium (Coumadin Tab(*)) 6 mg PO 1700 [facility] Stop: 08/13/18 17:01 Vital Signs - 8 hr 08/13/18 08/13/18 08/13/18 07:15 07:53 08:00 Temperature 36.6 C Pulse Rate 76 70 Respiratory 18 18 16 Rate Blood Pressure 112/62 (mmHg) O2 Sat by Pulse 99 Oximetry 08/13/18 08/13/18 08/13/18 11:43 13:09 13:11 Temperature 36.6 C Pulse Rate 82 71 Respiratory 18 18 Rate Blood Pressure 102/60 (mmHg) O2 Sat by Pulse 100 100 Oximetry Oxygen Devices in Use Now: Tracheostomy Collar Appearance: alert, no distress Neck: - - trach functioning Respiratory: Symmetrical Chest Expansion and Respiratory Effort, - - diminished bibasilar Cardiovascular: NL Sounds; No Murmurs; No JVD, RRR Abdominal: NL Sounds; No Tenderness; No Distention Extremities: - - 2+ pitting edema bilat arms, legs Lines/Tubes/Other Access: Clean, Dry and Intact Walsh, Clean, Dry and Intact Peripheral IV Nutrition: TEN Result Diagrams: 08/12/18 05:05 08/13/18 04:53 Additional Lab and Data: Laboratory Tests 08/12/18 08/12/18 08/13/18 05:05 23:16 04:53 INR (Anticoag Therapy) 1.29 H 1.29 H POC Glucose (mg/dL) 161 H 08/13/18 08/13/18 06:14 12:18 INR (Anticoag Therapy) POC Glucose (mg/dL) 144 H 114 H Microbiology and Other Data: Microbiology 08/07/18 11:36 Sputum Trach Gram Stain - Final 08/07/18 11:36 Sputum Trach Sputum Culture - Final Staphylococcus Aureus Klebsiella Pneumoniae 08/02/18 10:57 Stool Stool Gross Appearance - Final 08/02/18 10:57 Stool C. difficile DNA Amplification - Final 027 Presumptive NEGATIVE Toxigenic C.diff NEGATIVE 07/27/18 18:05 Stool Stool Gross Appearance - Final 07/27/18 18:05 Stool C. difficile DNA Amplification - Final 027 Presumptive NEGATIVE Toxigenic C.diff POSITIVE 07/26/18 14:26 Bronch Lavage - Right Upper Lobe Gram Stain - Final 07/26/18 14:26 Bronch Lavage - Right Upper Lobe Bronchoalveolar Lavage Cult , Quant - Final Liudmila Albicans Diagnostic Imaging: CXR 08/12: worsened pulm edema Assess/Plan/Problems-Billing Assessment: 78 yo woman who has been in hospital for nearly 1 month, post ICU stay through yesterday, due to pneumonia, resp failure, C diff. 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 -Will need acute rehab, PT to see on floor (3) Acute kidney injury Current Visit: Yes Status: Acute Priority: Low Code(s): N17.9 - ACUTE KIDNEY FAILURE, UNSPECIFIED SNOMED Code(s): 70262433 Comment: Resolved, volume repleted, now appears volume overloaded (4) Deep vein thrombosis (DVT) of left upper extremity Current Visit: Yes Status: Acute Priority: High Code(s): I82.622 - ACUTE EMBOLISM AND THROMBOSIS OF DEEP VEINS OF L UP EXTREM SNOMED Code(s): 667071841 Comment: -On Lovenox at treatment dose -INR not at goal, pharmacy will increase warfarin (5) Malnutrition Current Visit: Yes Status: Acute Priority: Medium Code(s): E46 - UNSPECIFIED PROTEIN-CALORIE MALNUTRITION SNOMED Code(s): 59034417 Comment: -Now has G-tube, tolerating feeds w/ some loose stools (6) C. difficile diarrhea Current Visit: Yes Status: Acute Priority: Medium Code(s): A04.72 - ENTEROCOLITIS D/T CLOSTRIDIUM DIFFICILE, NOT SPCF RECUR SNOMED Code(s): 6047476737858 Comment: -Remains on oral vancomycin for prolonged course -repeat test was negative (7) Volume overload Current Visit: Yes Status: Acute Priority: High Code(s): E87.70 - FLUID OVERLOAD, UNSPECIFIED SNOMED Code(s): 27835009 Comment: -had good output from extra furosemide -start strict I/O, daily weight -goal out>in 1 liter/day (8) Alkalosis, metabolic Current Visit: Yes Status: Acute Priority: Medium Code(s): E87.3 - ALKALOSIS SNOMED Code(s): 8280840 Comment: -started on diamox IV this morning, will monitor CO2 Status and Disposition: Will need acute rehab [facility]
[2018-08-13] MEDS ORDERED: Warfarin TAB(*) 6 MG PO ONE (17:00)
[2018-08-14] MEDS: Acetylcysteine INHALATION SOL* 200 MG/ML NEB.SOLN 10 ML INH SCH ×2 (00:51→07:02)
--- NOTE | 2018-08-14 00:55 | PN ---
Progress Note - Progress Note Date of Service: 08/14/18 Note: Paged for one large bloody stool. Will obtain H/H in AM. Is anticoagulated. Will repeat H/H prior to discontinuing her anticoagulation (Not due until 10 AM for lovenox for her DVT)
[2018-08-14] MEDS: Ciprofloxacin 0.3% OPTH.SOL* 2.5 ML BTL BOTH EYES SCH ×7 (01:40→23:56)
[2018-08-14 04:10] LABS: Hematocrit 26 % (35-47); Hemoglobin 8.3 g/dl (12.0-16.0); Mean Corpuscular HGB Conc 32 g/dl (31-36); Mean Corpuscular Hemoglobin 31 pg (27-31); Mean Corpuscular Volume 98 fL (80-97); Mean Platelet Volume 8.4 fL (7.4-10.4); Platelet Count 247 10^3/ul (150-450); Red Blood Count 2.66 10^6/ul (4.00-5.40); Red Cell Distribution Width 16 % (10.5-15); White Blood Count 6.7 10^3/ul (3.5-10.8)
[2018-08-14 04:15] LABS: INR 1.4 (0.77-1.02)
[2018-08-14 04:27] LABS: BUN/Creatinine Ratio 34.2 (8-20); Calcium 8.1 mg/dL (8.6-10.3); EGFR African American 197.7 (>60); EGFR Non-African American 163.4 (>60); Potassium 3.1 mmol/L (3.5-5.0)
[2018-08-14 04:37] LABS: ABS Basophils 0 10^3/ul (0-0.2); ABS Eosinophils 0.2 10^3/ul (0-0.6); ABS Lymphocytes 1.3 10^3/ul (1.0-4.8); ABS Monocytes 0.5 10^3/ul (0-0.8); ABS Neutrophils 4.7 10^3/ul (1.5-7.7); ABS Nucleated RBC 0 10^3/ul; Eosinophil % 3.1 %; Lymphocyte % 19.1 %; Nucleated Red Blood Cells % 0
[2018-08-14] MEDS: Levothyroxine TAB* 150 MCG TAB NG TUBE SCH (05:54)
[2018-08-14] MEDS: Insulin LISPRO* 1 UNITS UNIT SUBCUT SCH ×4 (06:03→20:22)
[2018-08-14] MEDS: ACETAZOLAMIDE IVPB SCH ×2 (08:19→23:06)
[2018-08-14] MEDS: NS 0.9% IVPB SCH ×2 (08:19→23:06)
[2018-08-14] MEDS: VANCOMYCIN PO SCH (08:23)
[2018-08-14] MEDS: Lactobacillus Acidophilus* 1 TAB PO SCH (08:24)
[2018-08-14] MEDS: Famotidine TAB* 20 MG PO SCH (08:24)
[2018-08-14] MEDS: amLODIPine TAB* 5 MG PO SCH (08:24)
[2018-08-14] MEDS: Potassium Chloride LIQUID* 20 MEQ PACKET PO SCH (08:24)
[2018-08-14] MEDS: Lisinopril TAB* 10 MG PO SCH (08:24)
[2018-08-14] MEDS: Nystatin SUSPENSION* 100000 UNITS/ML 5 ML UDC PO SCH ×4 (08:24→22:32)
[2018-08-14] MEDS: Atenolol TAB* 25 MG PO SCH ×2 (08:25→22:35)
[2018-08-14] MEDS: Nystatin CREAM* 15 GM TUBE TOPICAL SCH ×3 (08:25→22:44)
[2018-08-14] MEDS: Citalopram TAB* 20 MG PO SCH (08:25)
[2018-08-14] MEDS: FIBER SUPPLEMENT G TUBE SCH (08:25)
[2018-08-14] MEDS: Bacitracin OINTMENT* 0.5% 0.5 oz TUBE TOPICAL SCH ×3 (08:25→22:44)
[2018-08-14] MEDS: Nystatin OINT* 15 GM TOPICAL SCH ×3 (08:25→22:50)
[2018-08-14] MEDS: Furosemide IV* 10 MG/ML 2 ML VIAL (20 MG) IV SCH (08:26)
[2018-08-14 08:47] LABS: Hematocrit 26 % (35-47); Hemoglobin 8.4 g/dl (12.0-16.0)
[2018-08-14] MEDS ORDERED: Potassium Chloride LIQUID* 20 MEQ PACKET G TUBE ONE (12:32)
[2018-08-14] MEDS ORDERED: Magnesium Sulfate 2 GM IV* 2 GM/50 ML BAG IVPB ONE (12:33)
--- NOTE | 2018-08-14 15:34 | PN ---
Subjective Date of Service: 08/14/18 Interval History: Patient more able to talk today. She states her "bottom" hurts. She passed a large blood BM overnight, she seems unaware of this. Lovenox and warfarin stopped at that point. She is still having loose stools. Breathing is OK. Her left arm is weak, and all extremities are edematous. Family History: Unchanged from Admission Social History: Unchanged from Admission Past Medical History: Unchanged from Admission Objective Active Medications: Acetaminophen (Tylenol Adult Liq*) 650 mg FEED TUBE Q6H PRN PRN Reason: FEVER/PAIN Last Admin: 08/13/18 21:49 Dose: 650 mg Albuterol (Ventolin 2.5 Mg/3 Ml Neb.Lindy*) 2.5 mg INH Q4H PRN PRN Reason: SOB/WHEEZING Last Admin: 08/13/18 19:21 Dose: 2.5 mg Amlodipine Besylate (Norvasc Tab*) 10 mg PO DAILY [facility] Last Admin: 08/14/18 08:24 Dose: 10 mg Atenolol (Tenormin Tab*) 25 mg PO BID [facility] Last Admin: 08/14/18 08:25 Dose: 25 mg Bacitracin (Bacitracin Ointment*) 1 applic TOPICAL BID [facility] Last Admin: 08/14/18 08:25 Dose: 1 applic Ciprofloxacin HCl (Cipro 0.3% Opth*) 1 drop BOTH EYES Q4H [facility] Last Admin: 08/14/18 13:16 Dose: 1 drop Citalopram Hydrobromide (Celexa Tab*) 20 mg PO DAILY [facility] Last Admin: 08/14/18 08:25 Dose: 20 mg Dextrose (D50w Syringe 50 Ml*) 12.5 gm IV PUSH .FOR FS < 60 - SS PRN PRN Reason: FS < 60 Famotidine (Pepcid Tab*) 20 mg PO DAILY [facility] Last Admin: 08/14/18 08:24 Dose: 20 mg Furosemide (Lasix Iv*) 20 mg IV DAILY [facility] Last Admin: 08/14/18 08:26 Dose: 20 mg Heparin Sodium (Porcine) (Heparin Flush Picc/Ml/Cvc(*)) 1 - 3 ml FLUSH 0600, 1800 [facility]; Protocol Last Admin: 08/14/18 08:56 Dose: 1 ml Hydralazine HCl (Apresoline Iv*) 10 mg IV SLOW PU Q6H PRN PRN Reason: BLOOD PRESSURE Hydrocortisone (Hytone Cream 1%*) 1 applic TOPICAL BID PRN PRN Reason: HEMORRHOIDS Acetazolamide Sodium 125 mg/ (Sodium Chloride) 50 mls @ 100 mls/hr IVPB Q12HR [facility] Stop: 08/16/18 08:59 Last Admin: 08/14/18 08:19 Dose: 100 mls/hr Insulin Human Lispro (Humalog*) 0 units SUBCUT FS Q6 ICU [facility]; Protocol Last Admin: 08/14/18 12:18 Dose: Not Given Lactobacillus Rhamnosus (Lactobacillus Acidophilus*) 1 tab PO DAILY [facility] Last Admin: 08/14/18 08:24 Dose: 1 tab Levothyroxine Sodium (Synthroid Tab*) 150 mcg NG TUBE DAILY@0600 [facility] Last Admin: 08/14/18 05:54 Dose: 150 mcg Lisinopril (Prinivil Tab*) 40 mg PO DAILY [facility] Last Admin: 08/14/18 08:24 Dose: 40 mg Lorazepam (Ativan Inj*) 0.5 mg IV PUSH Q4H PRN PRN Reason: ANXIETY Fiber Supplement ( (Guar Gum)) 1 dose G TUBE DAILY [facility] Last Admin: 08/14/18 08:25 Dose: 1 dose Nystatin (Nystatin Cream*) 1 applic TOPICAL TID [facility] Last Admin: 08/14/18 13:16 Dose: 1 applic Nystatin (Nystatin Suspension*) 100,000 units PO QID [facility] Last Admin: 08/14/18 13:15 Dose: 100,000 units Nystatin (Nystatin Oint*) 1 applic TOPICAL TID [facility] Last Admin: 08/14/18 13:16 Dose: 1 applic Ondansetron HCl (Zofran Inj*) 4 mg IV Q4H PRN PRN Reason: NAUSEA Last Admin: 08/11/18 10:57 Dose: 4 mg Polyvinyl Alcohol (Polyvinyl Alcohol 1.4% Opth*) 1 drop BOTH EYES Q2H PRN PRN Reason: DRY EYE Last Admin: 08/10/18 09:27 Dose: 1 drop Potassium Chloride (Klor-Con Liquid*) 40 meq PO DAILY [facility] Last Admin: 08/14/18 08:24 Dose: 40 meq Vital Signs - 8 hr 08/14/18 08/14/18 08/14/18 08:00 08:18 08:55 Temperature 36.1 C Pulse Rate 69 Respiratory 20 16 20 Rate Blood Pressure 112/62 (mmHg) O2 Sat by Pulse 40 98 Oximetry 08/14/18 11:04 Temperature 36.7 C Pulse Rate 70 Respiratory 20 Rate Blood Pressure 110/64 (mmHg) O2 Sat by Pulse 98 Oximetry Oxygen Devices in Use Now: Tracheostomy Collar Appearance: more alert, no distress Eyes: No Scleral Icterus Ears/Nose/Mouth/Throat: Clear Oropharnyx Neck: - - tracheostomy Respiratory: Clear to Auscultation Cardiovascular: NL Sounds; No Murmurs; No JVD Abdominal: NL Sounds; No Tenderness; No Distention, No Hepatosplenomegaly Neurological: - - motor 4/5 RUE, 3-/5 LUE Lines/Tubes/Other Access: Clean, Dry and Intact Walsh, Clean, Dry and Intact Tracheostomy, Clean, Dry and Intact PICC Line, Clean, Dry and Intact Other Access Nutrition: - - G-tube feedings Result Diagrams: 08/14/18 08:20 08/14/18 03:55 Additional Lab and Data: Laboratory Tests 08/13/18 08/13/18 08/14/18 04:53 23:50 03:55 Hgb 8.3 L Hct 26 L INR (Anticoag Therapy) 1.29 H POC Glucose (mg/dL) 113 H 08/14/18 08/14/18 08/14/18 03:55 05:57 08:20 Hgb 8.4 L Hct 26 L INR (Anticoag Therapy) 1.40 H POC Glucose (mg/dL) 120 H 08/14/18 11:42 Hgb Hct INR (Anticoag Therapy) POC Glucose (mg/dL) 121 H Microbiology and Other Data: Microbiology 08/14/18 03:15 Stool Stool Occult Blood ([place]) - POS 08/07/18 11:36 Sputum Trach Gram Stain - Final 08/07/18 11:36 Sputum Trach Sputum Culture - Final Staphylococcus Aureus Klebsiella Pneumoniae Assess/Plan/Problems-Billing Assessment: 78 yo woman who has been in hospital for nearly 1 month, post ICU stay through yesterday, due to pneumonia, resp failure, C diff. 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 -Will need acute rehab, PT to see on floor (3) Acute kidney injury Current Visit: Yes Status: Acute Priority: Low Code(s): N17.9 - ACUTE KIDNEY FAILURE, UNSPECIFIED SNOMED Code(s): 39474126 Comment: Resolved, volume repleted, now appears volume overloaded (4) Deep vein thrombosis (DVT) of left upper extremity Current Visit: Yes Status: Acute Priority: High Code(s): I82.622 - ACUTE EMBOLISM AND THROMBOSIS OF DEEP VEINS OF L UP EXTREM SNOMED Code(s): 392826700 Comment: -off lovenox and warfarin due to GI bleed. (5) Malnutrition Current Visit: Yes Status: Acute Priority: Medium Code(s): E46 - UNSPECIFIED PROTEIN-CALORIE MALNUTRITION SNOMED Code(s): 39556852 Comment: -Now has G-tube, tolerating feeds w/ some loose stools (6) C. difficile diarrhea Current Visit: Yes Status: Acute Priority: Medium Code(s): A04.72 - ENTEROCOLITIS D/T CLOSTRIDIUM DIFFICILE, NOT SPCF RECUR SNOMED Code(s): 8465409886859 Comment: -Finished oral vancomycin course -repeat test was negative (7) Volume overload Current Visit: Yes Status: Acute Priority: High Code(s): E87.70 - FLUID OVERLOAD, UNSPECIFIED SNOMED Code(s): 51973817 Comment: -had good output from extra furosemide 2 days ago -reviewed strict I/O, daily weight -goal out>in 1 liter/day (8) Alkalosis, metabolic Current Visit: Yes Status: Acute Priority: Medium Code(s): E87.3 - ALKALOSIS SNOMED Code(s): 3071048 Comment: -started on diamox IV, CO2 improving (9) Lower GI bleed Current Visit: Yes Status: Acute Priority: High Code(s): K92.2 - GASTROINTESTINAL HEMORRHAGE, UNSPECIFIED SNOMED Code(s): 94252326 Comment: -off anticoagulation since overnight -discussed w/ Dr. Weber, he will see tomorrow -may be hemorrhoidal, diverticular -will obtain colonoscopy from [facility] -CBC in AM again Status and Disposition: Will need acute rehab at [facility] hospital
[2018-08-14] MEDS: Acetaminophen ADULT LIQ* 650 MG/20.3 ML UDC FEED TUBE PRN (22:37)
[2018-08-14] MEDS: Ondansetron INJ* 2 MG/ML VIAL IV PRN (23:09)
[2018-08-15] MEDS: Insulin LISPRO* 1 UNITS UNIT SUBCUT SCH ×4 (00:10→18:12)
[2018-08-15] MEDS: LORazepam INJ* 2 MG/ML 1 ML VIAL IV PUSH PRN ×2 (00:26→23:43)
[2018-08-15] MEDS: Ciprofloxacin 0.3% OPTH.SOL* 2.5 ML BTL BOTH EYES SCH ×6 (04:00→23:53)
[2018-08-15] MEDS: Levothyroxine TAB* 150 MCG TAB NG TUBE SCH (05:11)
[2018-08-15 05:46] LABS: ABS Basophils 0 10^3/ul (0-0.2); ABS Eosinophils 0.2 10^3/ul (0-0.6); ABS Lymphocytes 1.1 10^3/ul (1.0-4.8); ABS Monocytes 0.5 10^3/ul (0-0.8); ABS Neutrophils 4.2 10^3/ul (1.5-7.7); ABS Nucleated RBC 0 10^3/ul; Eosinophil % 2.6 %; Hematocrit 25 % (35-47); Hemoglobin 8.1 g/dl (12.0-16.0); Lymphocyte % 18.7 %; Mean Corpuscular HGB Conc 32 g/dl (31-36); Mean Corpuscular Hemoglobin 32 pg (27-31); Mean Corpuscular Volume 98 fL (80-97); Mean Platelet Volume 8.4 fL (7.4-10.4); Nucleated Red Blood Cells % 0; Platelet Count 234 10^3/ul (150-450); Red Blood Count 2.56 10^6/ul (4.00-5.40); Red Cell Distribution Width 16 % (10.5-15); White Blood Count 6.1 10^3/ul (3.5-10.8)
[2018-08-15 05:52] LABS: INR 1.14 (0.77-1.02)
[2018-08-15 06:06] LABS: BUN/Creatinine Ratio 36.4 (8-20); Calcium 8.2 mg/dL (8.6-10.3); EGFR African American 166.9 (>60); EGFR Non-African American 137.9 (>60); Magnesium 2.2 mg/dL (1.9-2.7); Potassium 3.6 mmol/L (3.5-5.0)
[2018-08-15] MEDS: Furosemide IV* 10 MG/ML 2 ML VIAL (20 MG) IV SCH (09:37)
[2018-08-15] MEDS: NS 0.9% IVPB SCH ×2 (09:38→22:08)
[2018-08-15] MEDS: ACETAZOLAMIDE IVPB SCH ×2 (09:38→22:08)
[2018-08-15] MEDS: Potassium Chloride LIQUID* 20 MEQ PACKET PO SCH (09:40)
[2018-08-15] MEDS: FIBER SUPPLEMENT G TUBE SCH (09:40)
[2018-08-15] MEDS: Atenolol TAB* 25 MG PO SCH ×2 (09:43→22:08)
[2018-08-15] MEDS: Famotidine TAB* 20 MG PO SCH (09:43)
[2018-08-15] MEDS: Citalopram TAB* 20 MG PO SCH (09:43)
[2018-08-15] MEDS: Lactobacillus Acidophilus* 1 TAB PO SCH (09:43)
[2018-08-15] MEDS: Lisinopril TAB* 10 MG PO SCH (09:43)
[2018-08-15] MEDS: Nystatin SUSPENSION* 100000 UNITS/ML 5 ML UDC PO SCH ×4 (09:44→22:09)
[2018-08-15] MEDS: amLODIPine TAB* 5 MG PO SCH (09:44)
[2018-08-15] MEDS: Nystatin OINT* 15 GM TOPICAL SCH ×3 (09:45→22:09)
[2018-08-15] MEDS: Nystatin CREAM* 15 GM TUBE TOPICAL SCH (09:46)
[2018-08-15] MEDS: Bacitracin OINTMENT* 0.5% 0.5 oz TUBE TOPICAL SCH ×2 (09:46→22:09)
--- NOTE | 2018-08-15 14:37 | PN ---
Subjective Date of Service: 08/15/18 Interval History: Patient has had increasing diarrhea today. Has had 5x/day diarrhea so far, smells like C diff per nursing. No further reports of blood per rectum. Nurse also noted LT arm and LT leg weakness. This was also noted yesterday. Patient states breathing is OK. Family History: Unchanged from Admission Social History: Unchanged from Admission Past Medical History: Unchanged from Admission Objective Active Medications: Acetaminophen (Tylenol Adult Liq*) 650 mg FEED TUBE Q6H PRN PRN Reason: FEVER/PAIN Last Admin: 08/14/18 22:37 Dose: 650 mg Albuterol (Ventolin 2.5 Mg/3 Ml Neb.Lindy*) 2.5 mg INH Q4H PRN PRN Reason: SOB/WHEEZING Last Admin: 08/13/18 19:21 Dose: 2.5 mg Amlodipine Besylate (Norvasc Tab*) 2.5 mg PO DAILY [facility] Last Admin: 08/15/18 09:44 Dose: 2.5 mg Atenolol (Tenormin Tab*) 25 mg PO BID [facility] Last Admin: 08/15/18 09:43 Dose: 25 mg Bacitracin (Bacitracin Ointment*) 1 applic TOPICAL BID [facility] Last Admin: 08/15/18 09:46 Dose: 1 applic Ciprofloxacin HCl (Cipro 0.3% Opth*) 1 drop BOTH EYES Q4H [facility] Last Admin: 08/15/18 12:02 Dose: 1 drop Citalopram Hydrobromide (Celexa Tab*) 20 mg PO DAILY [facility] Last Admin: 08/15/18 09:43 Dose: 20 mg Dextrose (D50w Syringe 50 Ml*) 12.5 gm IV PUSH .FOR FS < 60 - SS PRN PRN Reason: FS < 60 Famotidine (Pepcid Tab*) 20 mg PO DAILY [facility] Last Admin: 08/15/18 09:43 Dose: 20 mg Furosemide (Lasix Iv*) 20 mg IV DAILY [facility] Last Admin: 08/15/18 09:37 Dose: 20 mg Heparin Sodium (Porcine) (Heparin Flush Picc/Ml/Cvc(*)) 1 - 3 ml FLUSH 0600, 1800 [facility]; Protocol Last Admin: 08/15/18 05:11 Dose: 3 ml Hydralazine HCl (Apresoline Iv*) 10 mg IV SLOW PU Q6H PRN PRN Reason: BLOOD PRESSURE Hydrocortisone (Hytone Cream 1%*) 1 applic TOPICAL BID PRN PRN Reason: HEMORRHOIDS Acetazolamide Sodium 125 mg/ (Sodium Chloride) 50 mls @ 100 mls/hr IVPB Q12HR [facility] Stop: 08/16/18 08:59 Last Admin: 08/15/18 09:38 Dose: 100 mls/hr Insulin Human Lispro (Humalog*) 0 units SUBCUT FS Q6 ICU [facility]; Protocol Last Admin: 08/15/18 12:05 Dose: Not Given Lactobacillus Rhamnosus (Lactobacillus Acidophilus*) 1 tab PO DAILY [facility] Last Admin: 08/15/18 09:43 Dose: 1 tab Levothyroxine Sodium (Synthroid Tab*) 150 mcg NG TUBE DAILY@0600 [facility] Last Admin: 08/15/18 05:11 Dose: 150 mcg Lisinopril (Prinivil Tab*) 40 mg PO DAILY [facility] Last Admin: 08/15/18 09:43 Dose: 40 mg Lorazepam (Ativan Inj*) 0.5 mg IV PUSH Q4H PRN PRN Reason: ANXIETY Last Admin: 08/15/18 00:26 Dose: 0.5 mg Fiber Supplement ( (Guar Gum)) 1 dose G TUBE DAILY [facility] Last Admin: 08/15/18 09:40 Dose: 1 dose Nystatin (Nystatin Suspension*) 100,000 units PO QID [facility] Last Admin: 08/15/18 09:44 Dose: 100,000 units Nystatin (Nystatin Oint*) 1 applic TOPICAL TID [facility] Last Admin: 08/15/18 09:45 Dose: 1 applic Ondansetron HCl (Zofran Inj*) 4 mg IV Q4H PRN PRN Reason: NAUSEA Last Admin: 08/14/18 23:09 Dose: 4 mg Polyvinyl Alcohol (Polyvinyl Alcohol 1.4% Opth*) 1 drop BOTH EYES Q2H PRN PRN Reason: DRY EYE Last Admin: 08/10/18 09:27 Dose: 1 drop Potassium Chloride (Klor-Con Liquid*) 40 meq PO DAILY [facility] Last Admin: 08/15/18 09:40 Dose: 40 meq Vital Signs - 8 hr 08/15/18 08/15/18 08/15/18 07:29 08:00 08:07 Temperature 36.2 C Pulse Rate 70 Respiratory 16 16 Rate Blood Pressure 116/62 (mmHg) O2 Sat by Pulse 97 92 Oximetry Oxygen Devices in Use Now: Tracheostomy Collar Appearance: alert, no distress Eyes: No Scleral Icterus Ears/Nose/Mouth/Throat: Clear Oropharnyx Neck: NL Appearance and Movements; NL JVP, - - trach collar present Respiratory: Clear to Auscultation Cardiovascular: NL Sounds; No Murmurs; No JVD, RRR Abdominal: NL Sounds; No Tenderness; No Distention, - - G-tube LUQ Extremities: - - 2+ edema all extrem, except 3+ LUE Skin: No Rash or Ulcers Neurological: - - alert, cooperative Lines/Tubes/Other Access: Clean, Dry and Intact Peripheral IV Nutrition: - - tube feeding Result Diagrams: 08/15/18 05:20 08/15/18 05:20 Additional Lab and Data: Laboratory Tests 08/14/18 08/15/18 08/15/18 03:55 05:20 05:20 INR (Anticoag Therapy) 1.40 H 1.14 H Magnesium 2.2 Assess/Plan/Problems-Billing Assessment: 78 yo woman who has been in hospital for 1 month, post ICU stay due to pneumonia , resp failure, C diff. - Patient Problems (1) Acute respiratory failure with hypoxia Current Visit: Yes Status: Acute Priority: High Code(s): J96.01 - ACUTE RESPIRATORY FAILURE WITH HYPOXIA SNOMED Code(s): 04577901 Comment: -Has completed course antibiotics for severe pneumonia -has had volume overload, improved post diuresis -Will need rehab in [facility] facility -finished mucomyst, restarting atrovent (2) Myopathy Current Visit: Yes Status: Acute Priority: High Code(s): G72.9 - MYOPATHY , UNSPECIFIED SNOMED Code(s): 24815375 Comment: -Critical illness myopathy and polyneuropathy- confirmed with EMG/ NCS. -Will need acute rehab, PT to see on floor -discussed with Dr. Weldon, he is looking into taking patient to [facility] (3) Acute kidney injury Current Visit: Yes Status: Acute Priority: Low Code(s): N17.9 - ACUTE KIDNEY FAILURE, UNSPECIFIED SNOMED Code(s): 79731756 Comment: Resolved, volume repleted, now appears volume overloaded (4) Malnutrition Current Visit: Yes Status: Acute Priority: Medium Code(s): E46 - UNSPECIFIED PROTEIN-CALORIE MALNUTRITION SNOMED Code(s): 62572272 Comment: -Now has G-tube, tolerating feeds w/ some loose stools (5) C. difficile diarrhea Current Visit: Yes Status: Acute Priority: Medium Code(s): A04.72 - ENTEROCOLITIS D/T CLOSTRIDIUM DIFFICILE, NOT SPCF RECUR SNOMED Code(s): 9742813115564 Comment: -Finished oral vancomycin course -repeat test was negative -3rd test ordered due to recurrent symptoms (6) Volume overload Current Visit: Yes Status: Acute Priority: High Code(s): E87.70 - FLUID OVERLOAD, UNSPECIFIED SNOMED Code(s): 39986721 Comment: -had good output from extra furosemide when needed -reviewed strict I/O, daily weight, I/O not accurate few days ago -goal out>in 1 liter/day (7) Alkalosis, metabolic Current Visit: Yes Status: Acute Priority: Medium Code(s): E87.3 - ALKALOSIS SNOMED Code(s): 5139873 Comment: -started on diamox IV, CO2 improving (8) Lower GI bleed Current Visit: Yes Status: Acute Priority: High Code(s): K92.2 - GASTROINTESTINAL HEMORRHAGE, UNSPECIFIED SNOMED Code(s): 70718146 Comment: -off anticoagulation since overnight -discussed w/ Dr. Weber, he will see today -may be hemorrhoidal, diverticular -will obtain colonoscopy from [facility] in AM (9) Stroke Current Visit: Yes Status: Acute Priority: High Code(s): I63.9 - CEREBRAL INFARCTION, UNSPECIFIED SNOMED Code(s): 368789805 Comment: -Discussed case with Dr. Edmond, he will re-eval today -CT brain pending (10) Deep vein thrombosis (DVT) of left upper extremity Current Visit: Yes Status: Acute Priority: High Code(s): I82.622 - ACUTE EMBOLISM AND THROMBOSIS OF DEEP VEINS OF L UP EXTREM SNOMED Code(s): 201045340 Comment: -off lovenox and warfarin due to GI bleed. Status and Disposition: Will need acute rehab at [facility] or [facility]
[2018-08-15] MEDS ORDERED: Ipratropium 0.5MG/2.5ML NEB* 0.5 MG/2.5 ML NEB.SOLN INH SCH (15:00)
[2018-08-15] MEDS: Ipratropium 0.5MG/2.5ML NEB* 0.5 MG/2.5 ML NEB.SOLN INH SCH (20:48)
--- NOTE | 2018-08-15 21:28 | CONS ---
GASTROENTEROLOGY CONSULTATION: DATE: 08/15/18 CONSULTING PHYSICIAN: Cristian Mann MD. REASON FOR CONSULTATION: Rectal bleeding yesterday unperceived by patient. INCOMPLETE DICTATION [id number]/[facility] #: [id number] MTDD
--- NOTE | 2018-08-15 21:54 | CONS ---
GASTROENTEROLOGY CONSULTATION: DATE OF CONSULT: 11/26 CONSULTING PHYSICIAN: Cristian Mann REASON FOR CONSULT: Passage of sizable bright red stool morning, 08/14/18. HISTORY OF PRESENT ILLNESS: This 78-year-old woman admitted with severe pneumonia with a prolonged ICU stay, ventilated, and receiving a trach and a PEG tube and having complications of DVT, C. diff, and weakness, has been on warfarin and Lovenox. The last few days she has been convalescing on the regular floor, receiving tube feeding, and a course of vancomycin just ended. Her C. diff was negative on repeat, 08/02/18. Overnight, 08/14/18, she passed bloody stool and then another a few hours later. Her hemoglobin went from 9.2 to 8.3, although both those values are consistent with what she has shown in the last couple of weeks. She has not been transfused during this month long hospital stay. Lovenox was held and warfarin also held. INR has been under 1.4 the last week. It had been held for placement of gastrostomy tube. She has a history of colonoscopies, most recently by Dr Butcher in August 2014 showing mild left colonic diverticulosis and 3 small polyps removed. She reported to the emergency room here in October 2017 with some low-volume rectal bleeding. Her hemoglobin at presentation then was 13.8. She was transferred to [facility] and colonoscopy showed mild diverticulosis with no colitis, polyps, and no bleeding whatsoever. That exam was on 11/04/17 She had also had upper endoscopies by Dr Butcher for a nonerosive GERD. Over the last few days, she has become a little more interactive and her speech is beginning to be understood, though she is too fatigued for extended conversations. Other problems being followed are hypoxia with her antibiotics being completed, myopathy to be followed by Neurology and then to go to rehab floor, malnutrition , and alkalosis. Please see previous consults regarding other aspects of her outpatient care. MEDICATIONS: Current inpatient meds include: 1. Acetazolamide. 2. Citalopram. 3. Famotidine. 4. Furosemide 20. 5. Insulin in her feedings. 6. Levothyroxine 150 mcg per tube. 7. Lisinopril 40. 8. Potassium 40 mEq daily. She is receiving a fiber supplement. ALLERGIES: At least 12 and includes PENICILLIN, ERYTHROMYCIN, and SULFA. PHYSICAL EXAM: She is slightly pale, alert and interactive, responding to voice. She is in no respiratory distress. She has bilateral pedal edema. She has no adenopathy. Her lungs are clear anteriorly at the apices. Poor effort prevents hearing the bases. Heart sounds are regular at 70. Her abdomen shows a left upper quadrant PEG tube with a mildly indurated circumferential area. It is exiting at 5 cm and is freely rotatable. Bowel sounds are increased, but not mechanical. They are quite active. There is no tenderness or guarding. Rolling her to her side reveals a fair amount of irritation to gluteal skin. There is some brown nonbloody stool oozing out. Digital rectal is normal with no induration or palpable abnormality. There is a large amount of liquid stool dis. A specimen was sent for C. diff. IMPRESSION: This 78-year-old deconditioned and chronically ill woman had been treated with warfarin and then periodic Lovenox for her bedridden state and left arm deep venous thrombosis. Warfarin has been interrupted for some procedures. The episode of bleeding that occurred 2 nights ago most likely would have been from hemorrhoids, less likely diverticulosis under the influence of Lovenox. The bleeding seems to have stopped. She has had colonoscopies 10 months and 4 years ago, and there does not appear to be any need to repeat those studies and clarify the exact source of the bleeding since it seems to have stopped and there would not be any expectation of therapeutic endoscopy to be used. Her diarrhea is being reassessed. [id number]/[facility] #: [id number] MTDD
[2018-08-16] MEDS: Insulin LISPRO* 1 UNITS UNIT SUBCUT SCH ×3 (00:13→12:03)
[2018-08-16] MEDS: Ipratropium 0.5MG/2.5ML NEB* 0.5 MG/2.5 ML NEB.SOLN INH SCH ×4 (02:00→20:27)
[2018-08-16] MEDS: Ciprofloxacin 0.3% OPTH.SOL* 2.5 ML BTL BOTH EYES SCH ×6 (03:56→23:57)
[2018-08-16] MEDS: Levothyroxine TAB* 150 MCG TAB NG TUBE SCH (05:22)
[2018-08-16 05:57] LABS: Hematocrit 25 % (35-47); Hemoglobin 8.1 g/dl (12.0-16.0); Mean Corpuscular HGB Conc 33 g/dl (31-36); Mean Corpuscular Hemoglobin 32 pg (27-31); Mean Corpuscular Volume 98 fL (80-97); Mean Platelet Volume 8.6 fL (7.4-10.4); Platelet Count 218 10^3/ul (150-450); Red Blood Count 2.52 10^6/ul (4.00-5.40); Red Cell Distribution Width 17 % (10.5-15); White Blood Count 6.5 10^3/ul (3.5-10.8)
[2018-08-16 06:15] LABS: BUN/Creatinine Ratio 39.5 (8-20); EGFR African American 171.4 (>60); EGFR Non-African American 141.6 (>60); Potassium 3.7 mmol/L (3.5-5.0)
[2018-08-16 06:19] LABS: INR 1.02 (0.77-1.02)
[2018-08-16 06:26] LABS: ABS Basophils 0 10^3/ul (0-0.2); ABS Eosinophils 0.2 10^3/ul (0-0.6); ABS Lymphocytes 1.2 10^3/ul (1.0-4.8); ABS Monocytes 0.6 10^3/ul (0-0.8); ABS Neutrophils 4.5 10^3/ul (1.5-7.7); ABS Nucleated RBC 0 10^3/ul; Eosinophil % 2.6 %; Lymphocyte % 17.9 %; Nucleated Red Blood Cells % 0.1; Polychromasia 1+
[2018-08-16] MEDS: Furosemide IV* 10 MG/ML 2 ML VIAL (20 MG) IV SCH (09:33)
[2018-08-16] MEDS: Atenolol TAB* 25 MG PO SCH ×2 (09:34→21:35)
[2018-08-16] MEDS: Lactobacillus Acidophilus* 1 TAB PO SCH (09:34)
[2018-08-16] MEDS: Nystatin OINT* 15 GM TOPICAL SCH ×3 (09:34→21:40)
[2018-08-16] MEDS: Potassium Chloride LIQUID* 20 MEQ PACKET PO SCH (09:34)
[2018-08-16] MEDS: Lisinopril TAB* 10 MG PO SCH (09:34)
[2018-08-16] MEDS: amLODIPine TAB* 5 MG PO SCH (09:35)
[2018-08-16] MEDS: Citalopram TAB* 20 MG PO SCH (09:35)
[2018-08-16] MEDS: FIBER SUPPLEMENT G TUBE SCH (09:35)
[2018-08-16] MEDS: Famotidine TAB* 20 MG PO SCH (09:35)
[2018-08-16] MEDS: Bacitracin OINTMENT* 0.5% 0.5 oz TUBE TOPICAL SCH ×2 (09:35→21:39)
[2018-08-16] MEDS: Nystatin SUSPENSION* 100000 UNITS/ML 5 ML UDC PO SCH ×4 (09:36→21:35)
--- NOTE | 2018-08-16 13:44 | CONSULT ---
Consult Consult: WOUND CONSULT NOTE Date of Service: 08/16/18 History: Interval History: Patient seen and examined at bedside. NSG have no new concerns. Ms. Davis presented to the emergency room with complaints of nausea, vomiting , chest pain and shortness of breath, she was found to have pneumonia with acute hypoxic respiratory failure and C-diff and was admitted for further evaluation. She has continued to have respiratory failure and required a trach due to prolonged intubation. She was also diagnosed with C-diff and has been being treated with ABX. Past Medical/Family/Social History: Family History: Unchanged from Admission Social History: Unchanged from Admission Past Medical History: Unchanged from Admission Objective: Active Medications: Lisinopril (Prinivil Tab*) 40 mg PO DAILY [facility] Bacitracin (Bacitracin Ointment*) 1 applic TOPICAL BID [facility] Ciprofloxacin HCl (Cipro 0.3% Opth*) 1 drop BOTH EYES Q4H [facility] Ondansetron HCl (Zofran Inj*) 4 mg IV Q4H PRN Reason: NAUSEA Acetaminophen (Tylenol Adult Liq*) 650 mg FEED TUBE Q6H PRN Reason: FEVER/PAIN Albuterol (Ventolin 2.5 Mg/3 Ml Neb.Lindy*) 2.5 mg INH Q4H PRN Reason: SOB/ WHEEZING Amlodipine Besylate (Norvasc Tab*) 2.5 mg PO DAILY [facility] Atenolol (Tenormin Tab*) 25 mg PO BID [facility] Dextrose (D50w Syringe 50 Ml*) 12.5 gm IV PUSH .FOR FS < 60 - SS PRN Reason: FS < 60 Furosemide (Lasix Iv*) 20 mg IV DAILY [facility] Heparin Sodium (Porcine) (Heparin Flush Picc/Ml/Cvc(*)) 1 - 3 ml FLUSH 0600, 1800 [facility]; Protocol Heparin Sodium (Porcine) (Heparin Vial(*)) 5,000 units SUBCUT Q8HR [facility] Hydralazine HCl (Apresoline Iv*) 10 mg IV SLOW PU Q6H PRN Reason: BLOOD PRESSURE Hydrocortisone (Hytone Cream 1%*) 1 applic TOPICAL BID PRN Reason: HEMORRHOIDS Ipratropium [place] (Atrovent 0.5 Mg Neb.Lindy*) 0.5 mg INH Q6H [facility] Lactobacillus Rhamnosus (Lactobacillus Acidophilus*) 1 tab PO DAILY [facility] Levothyroxine Sodium (Synthroid Tab*) 150 mcg NG TUBE DAILY@0600 [facility] Lorazepam (Ativan Inj*) 0.5 mg IV PUSH Q4H PRN Reason: ANXIETY Morphine Sulfate (Morphine Vial*) 1 mg IV Q4H PRN Reason: PAIN Non-Formulary Medication (Non Formulary Med(Nf)) 1 dose G TUBE DAILY [facility] Nystatin (Nystatin Suspension*) 100,000 units PO QID [facility] Nystatin (Nystatin Oint*) 1 applic TOPICAL TID [facility] Polyvinyl Alcohol (Polyvinyl Alcohol 1.4% Opth*) 1 drop BOTH EYES Q2H PRN Reason: DRY EYE Potassium Chloride (Klor-Con Liquid*) 40 meq PO DAILY [facility] Vital Signs: 08/16/18 07:34 Temperature 97.8 F Temperature Temporal Artery Source Scan Pulse Rate 70 Respiratory 16 Rate Blood Pressure 125/51 (mmHg) Blood Pressure 67 Mean O2 Sat by Pulse 97 Oximetry Patient on Room No Air Exam: General: NAD, laying in bed Neuro: Alert and Oriented to Person Skin: Left anterior thigh. Healing tape blisters. Most lateral blister still open, others have healed and are no longer open. Open blister - 1.8 cm x 3.5 cm x 0.1 cm. Buttocks and upper posterior thighs continue to be excoriated and red. There are several superficial open areas. Upper midline open area - 1.5 cm x 0.5 cm x 0.1 cm. Left buttock with a cluster of open areas - 3.5 cm x 0.5 cm x0.1 cm. Data: Labs: 08/02/18 08/16/18 08/16/18 05:45 05:30 05:30 WBC 6.5 Hgb 8.1 L Hct 25 L Plt Count 218 Sodium 137 Potassium 3.7 Chloride 101 Carbon Dioxide 35 H BUN 17 Creatinine 0.43 L Glucose 116 H Albumin 2.3 L Assessment/Plan: Ms. Davis is a 78 yo female with PMH significant for HTN, headaches, constipation, chronic low back pain, shoulder pain, DM, hypothyroidism, and thyroid cancer who presented to the emergency room with complaints of nausea, vomiting, chest pain and shortness of breath, she was found to have pneumonia with acute hypoxic respiratory failure and C-diff. 1. Moisture associated skin injury secondary to incontinence: Continue barrier cream and urinary catheter. Provide frequent incontinence care as needed. 2. Stage 2 pressure injury to the left ischium: Healing. Continue barrier cream and frequent turning. Do not recommend use of Optifoam as it is causing further damage to the surrounding skin. 3. Blisters to anterior left thigh secondary to tape from a central line. These are healing well, 1 remains open. Continue ABX ointment, may leave open to air. Do not apply tape to the skin. VTE PPX: Heparin SQ Diet: NPO. Tube feeling diet. Code Status: Full Code Disposition: Inpatient. Disposition per Primary medicine team. Time Spent: 20 minutes was spent providing direct patient care, including assessing and photographing wounds. Attending: Dr. Yadira Kim MD
[2018-08-16] MEDS: LORazepam INJ* 2 MG/ML 1 ML VIAL IV PUSH PRN ×2 (15:28→21:09)
[2018-08-16] MEDS: Acetaminophen ADULT LIQ* 650 MG/20.3 ML UDC FEED TUBE PRN ×2 (15:28→21:35)
[2018-08-16] MEDS ORDERED: Morphine VIAL* 4 MG/ML VIAL (1 ml vial) IV PRN (15:37)
--- NOTE | 2018-08-16 15:45 | PN ---
Subjective Date of Service: 08/16/18 Interval History: Pt c/o SOB with passy theo valve that was removed by RT shortly thereafter. C/o epigastric abd pain/tenderness. Loose BM's up to 5/day GEt TF via PEG Is on trach collar Family History: Unchanged from Admission Social History: Unchanged from Admission Past Medical History: Unchanged from Admission Objective Active Medications: Acetaminophen (Tylenol Adult Liq*) 650 mg FEED TUBE Q6H PRN PRN Reason: FEVER/PAIN Last Admin: 08/14/18 22:37 Dose: 650 mg Albuterol (Ventolin 2.5 Mg/3 Ml Neb.Lindy*) 2.5 mg INH Q4H PRN PRN Reason: SOB/WHEEZING Last Admin: 08/13/18 19:21 Dose: 2.5 mg Amlodipine Besylate (Norvasc Tab*) 2.5 mg PO DAILY [facility] Last Admin: 08/16/18 09:35 Dose: 2.5 mg Atenolol (Tenormin Tab*) 25 mg PO BID [facility] Last Admin: 08/16/18 09:34 Dose: 25 mg Bacitracin (Bacitracin Ointment*) 1 applic TOPICAL BID [facility] Last Admin: 08/16/18 09:35 Dose: 1 applic Ciprofloxacin HCl (Cipro 0.3% Opth*) 1 drop BOTH EYES Q4H [facility] Last Admin: 08/16/18 12:55 Dose: 1 drop Citalopram Hydrobromide (Celexa Tab*) 20 mg PO DAILY [facility] Last Admin: 08/16/18 09:35 Dose: 20 mg Dextrose (D50w Syringe 50 Ml*) 12.5 gm IV PUSH .FOR FS < 60 - SS PRN PRN Reason: FS < 60 Famotidine (Pepcid Tab*) 20 mg PO DAILY [facility] Last Admin: 08/16/18 09:35 Dose: 20 mg Furosemide (Lasix Iv*) 20 mg IV DAILY [facility] Last Admin: 08/16/18 09:33 Dose: 20 mg Heparin Sodium (Porcine) (Heparin Flush Picc/Ml/Cvc(*)) 1 - 3 ml FLUSH 0600, 1800 [facility]; Protocol Last Admin: 08/16/18 05:20 Dose: 1 ml Hydralazine HCl (Apresoline Iv*) 10 mg IV SLOW PU Q6H PRN PRN Reason: BLOOD PRESSURE Hydrocortisone (Hytone Cream 1%*) 1 applic TOPICAL BID PRN PRN Reason: HEMORRHOIDS Insulin Human Lispro (Humalog*) 0 units SUBCUT FS Q6 ICU [facility]; Protocol Last Admin: 08/16/18 12:03 Dose: Not Given Ipratropium [employer] (Atrovent 0.5 Mg Neb.Lindy*) 0.5 mg INH Q6H [facility] Last Admin: 08/16/18 13:16 Dose: 0.5 mg Lactobacillus Rhamnosus (Lactobacillus Acidophilus*) 1 tab PO DAILY [facility] Last Admin: 08/16/18 09:34 Dose: 1 tab Levothyroxine Sodium (Synthroid Tab*) 150 mcg NG TUBE DAILY@0600 [facility] Last Admin: 08/16/18 05:22 Dose: 150 mcg Lisinopril (Prinivil Tab*) 40 mg PO DAILY [facility] Last Admin: 08/16/18 09:34 Dose: 40 mg Lorazepam (Ativan Inj*) 0.5 mg IV PUSH Q4H PRN PRN Reason: ANXIETY Last Admin: 08/16/18 15:28 Dose: 0.5 mg Morphine Sulfate (Morphine Vial*) 1 mg IV Q4H PRN PRN Reason: PAIN Fiber Supplement ( (Guar Gum)) 1 dose G TUBE DAILY [facility] Last Admin: 08/16/18 09:35 Dose: 1 dose Nystatin (Nystatin Suspension*) 100,000 units PO QID [facility] Last Admin: 08/16/18 09:36 Dose: 100,000 units Nystatin (Nystatin Oint*) 1 applic TOPICAL TID [facility] Last Admin: 08/16/18 13:08 Dose: 1 applic Ondansetron HCl (Zofran Inj*) 4 mg IV Q4H PRN PRN Reason: NAUSEA Last Admin: 08/14/18 23:09 Dose: 4 mg Polyvinyl Alcohol (Polyvinyl Alcohol 1.4% Opth*) 1 drop BOTH EYES Q2H PRN PRN Reason: DRY EYE Last Admin: 08/10/18 09:27 Dose: 1 drop Potassium Chloride (Klor-Con Liquid*) 40 meq PO DAILY [facility] Last Admin: 08/16/18 09:34 Dose: 40 meq Vital Signs - 8 hr 08/16/18 08/16/18 08/16/18 08:00 08:45 11:32 Temperature 99.1 F Pulse Rate 70 70 Respiratory 20 18 20 Rate Blood Pressure 112/58 (mmHg) O2 Sat by Pulse 97 96 Oximetry 08/16/18 08/16/18 15:25 15:28 Temperature 98 F Pulse Rate 70 Respiratory 24 22 Rate Blood Pressure 134/64 (mmHg) O2 Sat by Pulse 99 Oximetry Oxygen Devices in Use Now: Tracheostomy Collar Appearance: 78 yo F in nAD, AAOx3 Eyes: No Scleral Icterus, PERRLA Ears/Nose/Mouth/Throat: NL Teeth, Lips, Gums, Mucous Membranes Moist Neck: NL Appearance and Movements; NL JVP, Trachea Midline Respiratory: Symmetrical Chest Expansion and Respiratory Effort, - - coarse breath sounds b/l Abdominal: - - mild epigastric tenderness, no rebounnd no guarding, BS+, PEG in place Lymphatic: No Cervical Adenopathy Extremities: No Clubbing, Cyanosis, - - +2 b/l antire LE's edema Skin: No Nodules or Sclerosis, - - blisters on left enterior thigh -resolving. stage 2 savral decub at 2-4 cm in diam Neurological: Alert and Oriented x 3, - - left ar 4+/5, b/l LE's -unable to lifft against gravity, Babinski neg b/l Result Diagrams: 08/16/18 05:30 08/16/18 05:30 Additional Lab and Data: Laboratory Tests 08/14/18 08/15/18 08/15/18 03:55 05:20 05:20 INR (Anticoag Therapy) 1.40 H 1.14 H Magnesium 2.2 Microbiology and Other Data: Microbiology 08/14/18 03:15 Stool Stool Occult Blood ([facility]) - POS 08/07/18 11:36 Sputum Trach Gram Stain - Final 08/07/18 11:36 Sputum Trach Sputum Culture - Final Staphylococcus Aureus Klebsiella Pneumoniae Diagnostic Imaging: CXR 2/2: worsened pulm edema Assess/Plan/Problems-Billing Assessment: 78 yo woman who has been in hospital for 1 month, post ICU stay due to pneumonia , resp failure, C diff. - Patient Problems (1) Acute respiratory failure with hypoxia Comment: -Has completed course antibiotics for severe pneumonia -has had volume overload, improved post diuresis -Will need rehab (2) Tracheostomy in place Comment: Asked Dr. Lucio to see pt in consult for trach management (3) Acute kidney injury Comment: Resolved, volume repleted, now appears volume overloaded (4) Alkalosis, metabolic Comment: -started on diamox IV, CO2 improving (5) C. difficile diarrhea Comment: -Finished oral vancomycin course -repeat test was negative (6) Deep vein thrombosis (DVT) of left upper extremity Comment: off lovenox and warfarin due to GI bleed. Repeat dopplers show resolution of previous DVT and due to GI bleed anticoagulation will no be restarted. will place pt in DVT prophylaxis heparin sc only (7) Lower GI bleed Comment: likely hemorrhoidal. anicoagulation stopped on 08/14/18 -appreciate GI consult. 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 -Will need acute rehab, PT to see on floor -has a bed offer in [facility] (9) Volume overload Comment: -had good output from extra furosemide when needed -reviewed strict I/O, daily weight, I/O not accurate few days ago -goal out>in 1 liter/day (10) Left arm weakness Comment: as d/w DR. 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 Pt is not a good surgical candidate and declined neurosurgery consult (11) DVT prophylaxis Comment: HSQ started 08/16/18 Status and Disposition: Will need STR, offered a bed at [facility]
--- NOTE | 2018-08-16 17:36 | PN ---
Subjective Date of Service: 08/16/18 Length of Stay: 30 Days Neurology is following for weakness. Review of Systems: She denied CP or palpitation. She denied any headache or visual disturbance. Family History: Unchanged from Admission Social History: Unchanged from Admission Past Medical History: Unchanged from Admission Objective Active Medications: Acetaminophen (Tylenol Adult Liq*) 650 mg FEED TUBE Q6H PRN PRN Reason: FEVER/PAIN Last Admin: 08/16/18 15:28 Dose: 650 mg Albuterol (Ventolin 2.5 Mg/3 Ml Neb.Lindy*) 2.5 mg INH Q4H PRN PRN Reason: SOB/WHEEZING Last Admin: 08/13/18 19:21 Dose: 2.5 mg Amlodipine Besylate (Norvasc Tab*) 2.5 mg PO DAILY [facility] Last Admin: 08/16/18 09:35 Dose: 2.5 mg Atenolol (Tenormin Tab*) 25 mg PO BID [facility] Last Admin: 08/16/18 09:34 Dose: 25 mg Bacitracin (Bacitracin Ointment*) 1 applic TOPICAL BID [facility] Last Admin: 08/16/18 09:35 Dose: 1 applic Ciprofloxacin HCl (Cipro 0.3% Opth*) 1 drop BOTH EYES Q4H [facility] Last Admin: 08/16/18 15:45 Dose: 1 drop Citalopram Hydrobromide (Celexa Tab*) 20 mg PO DAILY [facility] Last Admin: 08/16/18 09:35 Dose: 20 mg Dextrose (D50w Syringe 50 Ml*) 12.5 gm IV PUSH .FOR FS < 60 - SS PRN PRN Reason: FS < 60 Famotidine (Pepcid Tab*) 20 mg PO DAILY [facility] Last Admin: 08/16/18 09:35 Dose: 20 mg Furosemide (Lasix Iv*) 20 mg IV DAILY [facility] Last Admin: 08/16/18 09:33 Dose: 20 mg Heparin Sodium (Porcine) (Heparin Flush Picc/Ml/Cvc(*)) 1 - 3 ml FLUSH 0600, 1800 [facility]; Protocol Last Admin: 08/16/18 17:06 Dose: 3 ml Heparin Sodium (Porcine) (Heparin Vial(*)) 5,000 units SUBCUT Q8HR [facility] Hydralazine HCl (Apresoline Iv*) 10 mg IV SLOW PU Q6H PRN PRN Reason: BLOOD PRESSURE Hydrocortisone (Hytone Cream 1%*) 1 applic TOPICAL BID PRN PRN Reason: HEMORRHOIDS Ipratropium [place] (Atrovent 0.5 Mg Neb.Lindy*) 0.5 mg INH Q6H [facility] Last Admin: 08/16/18 13:16 Dose: 0.5 mg Lactobacillus Rhamnosus (Lactobacillus Acidophilus*) 1 tab PO DAILY [facility] Last Admin: 08/16/18 09:34 Dose: 1 tab Levothyroxine Sodium (Synthroid Tab*) 150 mcg NG TUBE DAILY@0600 [facility] Last Admin: 08/16/18 05:22 Dose: 150 mcg Lisinopril (Prinivil Tab*) 40 mg PO DAILY [facility] Last Admin: 08/16/18 09:34 Dose: 40 mg Lorazepam (Ativan Inj*) 0.5 mg IV PUSH Q4H PRN PRN Reason: ANXIETY Last Admin: 08/16/18 15:28 Dose: 0.5 mg Morphine Sulfate (Morphine Vial*) 1 mg IV Q4H PRN PRN Reason: PAIN Fiber Supplement ( (Guar Gum)) 1 dose G TUBE DAILY [facility] Last Admin: 08/16/18 09:35 Dose: 1 dose Nystatin (Nystatin Suspension*) 100,000 units PO QID [facility] Last Admin: 08/16/18 17:06 Dose: 100,000 units Nystatin (Nystatin Oint*) 1 applic TOPICAL TID [facility] Last Admin: 08/16/18 13:08 Dose: 1 applic Ondansetron HCl (Zofran Inj*) 4 mg IV Q4H PRN PRN Reason: NAUSEA Last Admin: 08/14/18 23:09 Dose: 4 mg Polyvinyl Alcohol (Polyvinyl Alcohol 1.4% Opth*) 1 drop BOTH EYES Q2H PRN PRN Reason: DRY EYE Last Admin: 08/10/18 09:27 Dose: 1 drop Potassium Chloride (Klor-Con Liquid*) 40 meq PO DAILY [facility] Last Admin: 08/16/18 09:34 Dose: 40 meq Vital Signs 08/16/18 08/16/18 08/16/18 15:25 15:28 16:35 Temperature 98 F Pulse Rate 70 Respiratory 24 22 18 Rate Blood Pressure 134/64 (mmHg) O2 Sat by Pulse 99 Oximetry Intake and Output Last 24 Hours 02/04/19 08/15/18 08/16/18 08/17/18 06:59 06:59 06:59 06:59 Intake Total 75 3351 1592 2530 Output Total 3475 2975 3250 1900 Balance -3400 376 -1658 630 Weight 215 lb 9.6 oz 198 lb 8 oz Intake: IV Fluids 75 AcetaZOLAMIDE 55 Normal Saline 20 Oral 0 0 0 0 Tube Feeding 2426 902 1600 Tube Feeding Flush Amount 925 690 930 Output: Urine 325 Walsh 3475 2650 3250 1900 Tube Feeding Residual 0 0 0 Amount Wasted Other: Date of Last Bowel 08/13/18 Movement # Bowel Movements 1 1 1 1 Estimated Stool Amount Large Large Small Small Oxygen Devices in Use Now: Tracheostomy Collar Neurology Exam: General: Ill appearing elderly female in no distress. HEENT: Normocephalic/atraumatic, sclera anicteric, mucous membranes moist. She has a tracheostomy tube. Neck: Supple Chest: Clear to auscultation bilaterally Cardiovascular: Regular rate and rhythm without murmurs, rubs, gallops Extremities: swelling of the left arm. Neurological Findings: Awake, appears alert but intubated patient in no acute distress. She is on low sedation. She is appropriately responding to command. Cranial Nerve: PERRL, EOM-I, no facial asymmetry. Motor R/L: shoulder abduction 3/1, elbow flexion 3/2, elbow extension 3/2, wrist extension 3/2, wrist flexion 2/1, finger abduction 3/1. Hip flexion 2/2, knee extension 3/2, knee flexion 3/2, knee extension 3/2, ankle dorsi and plantar flexion 3/2. She has proximal>distal extremity weakness. Reduce tone throughout. No tremors. Sensation: intact to LT/PP bilaterally upper and lower extremities except for reduced sensation to pinprick at multiple dermatomal distribution on the left as well as reduce sensation on the left arm and leg when compared to the face. She had normal sensation on both side of the face to pin and light touch. Deep Tendon Reflex: 1 + on the right and 0 on the left upper extremity. 2+ in the knees and absent at the ankles. Coordination test: unable to perform due to generalized weakness Gait: n/a due to generalized weakness Result Diagrams: 08/16/18 05:30 08/16/18 05:30 Additional Lab and Data: Laboratory Tests 08/14/18 08/15/18 08/15/18 03:55 05:20 05:20 INR (Anticoag Therapy) 1.40 H 1.14 H Magnesium 2.2 Microbiology and Other Data: Microbiology 08/14/18 03:15 Stool Stool Occult Blood ([facility]) - POS 08/07/18 11:36 Sputum Trach Gram Stain - Final 08/07/18 11:36 Sputum Trach Sputum Culture - Final Staphylococcus Aureus Klebsiella Pneumoniae Diagnostic Imaging: CXR 08/12: worsened pulm edema Assessment/Plan Mrs. Kina Davis is a 78-year-old female who was hospitalized at [facility] for the past 30 days for acute infectious and hypoxic encephalopathy, who failed extubation and required re-intubation for a total of 3 times during this hospitalization. She is status post tracheostomy tube placement. 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 Neurology was reconsulted for concerns of worsening left arm weakness. A repeat CT head without contrast yesterday did not show any evidence for acute stroke. 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 On examination today, the patient has reduced sensation to pin prick, loss of reflexes on the left arm, and normal sensation on the face suggestive of a cervical cord pathology most likely contributing to the patient's left arm and slightly left leg weakness. This is superimposed to her critical illness myopathy and polyneuropathy. I don't think she has any stroke given the multiple unremarkable CT scans of the head over the past month. 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 Clearly the patient is not currently a surgical candidate for spine surgery, but if her respiratory function improves, she may be a candidate in the future. In addition, I discussed my concerns about her weakness and where it was coming from, and she laughed and stated "I am in no shape for surgery." She is alert and oriented and has insight regarding her medical condition at this point. I agreed with the patient. Other than aggressive physical therapy, and placing her on a soft cervical collar (very difficult with a trach), I don't have any further neurological recommendations. We can always consult neurosurgery for a second opinion, obtain a CT myelogram at some point once her infection and respiratory function improve. Defer further recommendation to the primary team. I will sign off but please contact me for any questions or concerns. Time spent: 45 minutes
[2018-08-16] MEDS: Artificial Tears* 15 ML BTL BOTH EYES PRN (21:09)
[2018-08-16] MEDS: Heparin VIAL(*) 5000 UNITS/ML VIAL (FIVE THOUSAND) SUBCUT SCH (21:35)
[2018-08-17] MEDS: Ipratropium 0.5MG/2.5ML NEB* 0.5 MG/2.5 ML NEB.SOLN INH SCH ×4 (01:26→19:07)
[2018-08-17] MEDS: Levothyroxine TAB* 150 MCG TAB NG TUBE SCH (05:24)
[2018-08-17] MEDS: Heparin VIAL(*) 5000 UNITS/ML VIAL (FIVE THOUSAND) SUBCUT SCH ×3 (05:24→21:59)
[2018-08-17] MEDS: Ciprofloxacin 0.3% OPTH.SOL* 2.5 ML BTL BOTH EYES SCH ×2 (05:42→09:00)
[2018-08-17 06:17] LABS: Hematocrit 26 % (35-47); Hemoglobin 8.3 g/dl (12.0-16.0); Mean Corpuscular HGB Conc 33 g/dl (31-36); Mean Corpuscular Hemoglobin 32 pg (27-31); Mean Corpuscular Volume 98 fL (80-97); Mean Platelet Volume 8.7 fL (7.4-10.4); Platelet Count 217 10^3/ul (150-450); Red Cell Distribution Width 17 % (10.5-15); White Blood Count 5.4 10^3/ul (3.5-10.8)
[2018-08-17 06:23] LABS: INR 1.01 (0.77-1.02)
[2018-08-17 06:35] LABS: BUN/Creatinine Ratio 47.2 (8-20); Calcium 8.3 mg/dL (8.6-10.3); EGFR African American 210.4 (>60); EGFR Non-African American 173.9 (>60); Potassium 3.6 mmol/L (3.5-5.0)
[2018-08-17 07:28] LABS: ABS Basophils 0 10^3/ul (0-0.2); ABS Eosinophils 0.1 10^3/ul (0-0.6); ABS Lymphocytes 1.4 10^3/ul (1.0-4.8); ABS Monocytes 0.5 10^3/ul (0-0.8); ABS Neutrophils 3.3 10^3/ul (1.5-7.7); ABS Nucleated RBC 0 10^3/ul; Eosinophil % 2.2 %; Lymphocyte % 26.5 %; Nucleated Red Blood Cells % 0.1
[2018-08-17] MEDS ORDERED: Furosemide IV* 10 MG/ML 2 ML VIAL (20 MG) IV ONE (10:25)
--- NOTE | 2018-08-17 10:28 | PN ---
Subjective Date of Service: 08/17/18 Interval History: Pt feels better everyday. OK with theo valve, able to talk. Trach exchanged from size 8 to 6 last night by ENT. Pt feels better. no c/o SOB Family History: Unchanged from Admission Social History: Unchanged from Admission Past Medical History: Unchanged from Admission Objective Active Medications: Acetaminophen (Tylenol Adult Liq*) 650 mg FEED TUBE Q6H PRN PRN Reason: FEVER/PAIN Last Admin: 08/16/18 21:35 Dose: 650 mg Albuterol (Ventolin 2.5 Mg/3 Ml Neb.Lindy*) 2.5 mg INH Q4H PRN PRN Reason: SOB/WHEEZING Last Admin: 08/13/18 19:21 Dose: 2.5 mg Amlodipine Besylate (Norvasc Tab*) 2.5 mg PO DAILY [facility] Last Admin: 08/16/18 09:35 Dose: 2.5 mg Atenolol (Tenormin Tab*) 25 mg PO BID [facility] Last Admin: 08/16/18 21:35 Dose: 25 mg Bacitracin (Bacitracin Ointment*) 1 applic TOPICAL BID [facility] Last Admin: 08/16/18 21:39 Dose: 1 applic Ciprofloxacin HCl (Cipro 0.3% Opth*) 1 drop BOTH EYES Q4H [facility] Last Admin: 08/17/18 05:42 Dose: Not Given Citalopram Hydrobromide (Celexa Tab*) 20 mg PO DAILY [facility] Last Admin: 08/16/18 09:35 Dose: 20 mg Dextrose (D50w Syringe 50 Ml*) 12.5 gm IV PUSH .FOR FS < 60 - SS PRN PRN Reason: FS < 60 Famotidine (Pepcid Tab*) 20 mg PO DAILY [facility] Last Admin: 08/16/18 09:35 Dose: 20 mg Furosemide (Lasix Iv*) 20 mg IV DAILY [facility] Last Admin: 08/16/18 09:33 Dose: 20 mg Furosemide (Lasix Iv*) 20 mg IV ONCE ONE Stop: 08/17/18 10:26 Heparin Sodium (Porcine) (Heparin Flush Picc/Ml/Cvc(*)) 1 - 3 ml FLUSH 0600, 1800 [facility]; Protocol Last Admin: 08/17/18 05:25 Dose: 3 ml Heparin Sodium (Porcine) (Heparin Vial(*)) 5,000 units SUBCUT Q8HR [facility] Last Admin: 08/17/18 05:24 Dose: 5,000 units Hydralazine HCl (Apresoline Iv*) 10 mg IV SLOW PU Q6H PRN PRN Reason: BLOOD PRESSURE Hydrocortisone (Hytone Cream 1%*) 1 applic TOPICAL BID PRN PRN Reason: HEMORRHOIDS Ipratropium [place] (Atrovent 0.5 Mg Neb.Lindy*) 0.5 mg INH Q6H [facility] Last Admin: 08/17/18 07:40 Dose: 0.5 mg Lactobacillus Rhamnosus (Lactobacillus Acidophilus*) 1 tab PO DAILY [facility] Last Admin: 08/16/18 09:34 Dose: 1 tab Levothyroxine Sodium (Synthroid Tab*) 150 mcg NG TUBE DAILY@0600 [facility] Last Admin: 08/17/18 05:24 Dose: 150 mcg Lisinopril (Prinivil Tab*) 40 mg PO DAILY [facility] Last Admin: 08/16/18 09:34 Dose: 40 mg Lorazepam (Ativan Inj*) 0.5 mg IV PUSH Q4H PRN PRN Reason: ANXIETY Last Admin: 08/16/18 21:09 Dose: 0.5 mg Morphine Sulfate (Morphine Vial*) 1 mg IV Q4H PRN PRN Reason: PAIN Fiber Supplement ( (Guar Gum)) 1 dose G TUBE DAILY [facility] Last Admin: 08/16/18 09:35 Dose: 1 dose Nystatin (Nystatin Suspension*) 100,000 units PO QID [facility] Last Admin: 08/16/18 21:35 Dose: 100,000 units Nystatin (Nystatin Oint*) 1 applic TOPICAL TID [facility] Last Admin: 08/16/18 21:40 Dose: 1 applic Ondansetron HCl (Zofran Inj*) 4 mg IV Q4H PRN PRN Reason: NAUSEA Last Admin: 08/14/18 23:09 Dose: 4 mg Polyvinyl Alcohol (Polyvinyl Alcohol 1.4% Opth*) 1 drop BOTH EYES Q2H PRN PRN Reason: DRY EYE Last Admin: 08/10/18 09:27 Dose: 1 drop Potassium Chloride (Klor-Con Liquid*) 40 meq PO DAILY [facility] Last Admin: 08/16/18 09:34 Dose: 40 meq Vital Signs - 8 hr 08/17/18 08/17/18 02:45 07:40 Temperature 97.3 F Pulse Rate 70 70 Respiratory 20 16 Rate Blood Pressure 149/65 (mmHg) O2 Sat by Pulse 97 98 Oximetry Oxygen Devices in Use Now: Tracheostomy Collar Appearance: 78 yo f in nAD, aAOx2 Eyes: No Scleral Icterus, PERRLA Ears/Nose/Mouth/Throat: NL Teeth, Lips, Gums, Mucous Membranes Moist Neck: NL Appearance and Movements; NL JVP, Trachea Midline Respiratory: Symmetrical Chest Expansion and Respiratory Effort, - - coarse breath sounds b/l with decreased breath sound at b/l bases Cardiovascular: NL Sounds; No Murmurs; No JVD, RRR Abdominal: NL Sounds; No Tenderness; No Distention Lymphatic: No Cervical Adenopathy Extremities: - - +1 b/l entire leg edema -improving Skin: No Nodules or Sclerosis Neurological: Alert and Oriented x 3, - - left arm at 4/5 -worse distall, R arm unable to raise above shoulder due to old trauma, but otherwise aT 5/5, b/L LE' s unable to raise against gravity,Babinski neg b/l Result Diagrams: 08/17/18 05:36 08/17/18 05:36 Additional Lab and Data: Laboratory Tests 08/14/18 08/15/18 08/15/18 03:55 05:20 05:20 INR (Anticoag Therapy) 1.40 H 1.14 H Magnesium 2.2 Microbiology and Other Data: Microbiology 08/14/18 03:15 Stool Stool Occult Blood ([place]) - POS 08/07/18 11:36 Sputum Trach Gram Stain - Final 08/07/18 11:36 Sputum Trach Sputum Culture - Final Staphylococcus Aureus Klebsiella Pneumoniae Diagnostic Imaging: CXR 08/12: worsened pulm edema Assess/Plan/Problems-Billing Mrs. Kina Davis is a 78-year-old female who was hospitalized at [facility] for the past 30 days for acute infectious and hypoxic encephalopathy, who failed extubation and required re-intubation for a total of 3 times during this hospitalization. She is status post tracheostomy tube placement. 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 - Patient Problems (1) Acute respiratory failure with hypoxia Comment: -Has completed course antibiotics for severe pneumonia -hasvolume overload, improving with diuretisc- on IV Lasix daily -Will need rehab (2) Tracheostomy in place Comment: Asked Dr. Lucio to see pt in consult for trach management Trach was exchanged from size 8 to 6. Pt is doing well today. will obtain swallow eval (3) Acute kidney injury Comment: Resolved, volume repleted, now appears volume overloaded (4) Alkalosis, metabolic Comment: -started on diamox IV, CO2 on 08/13/18, improved, will d/c (5) C. difficile diarrhea Comment: -Finished oral vancomycin course -repeat test was negative (6) Deep vein thrombosis (DVT) of left upper extremity Comment: off lovenox and warfarin due to GI bleed. Repeat dopplers show resolution of previous DVT and due to GI bleed anticoagulation will no be restarted. will place pt in DVT prophylaxis heparin sc only (7) Lower GI bleed Comment: likely hemorrhoidal. anicoagulation stopped on 08/14/18 -appreciate GI consult. 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 -Will need acute rehab, PT to see on floor -has a bed offer in [facility] (9) Volume overload Comment: -had good output from extra furosemide when needed -reviewed strict I/O, daily weight, I/O not accurate few days ago -goal out>in 1 liter/day (10) Left arm weakness Comment: as d/w DR. 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 Pt is not a good surgical candidate and declined neurosurgery consult Recommended CT myelogram one pt is past acute rehab stage (11) DVT prophylaxis Comment: HSQ started 08/16/18 Status and Disposition: Will need STR, offered a bed at [facility], plan to d/c to STR tomorrow AM.
[2018-08-17] MEDS: Furosemide IV* 10 MG/ML 2 ML VIAL (20 MG) IV SCH (10:29)
[2018-08-17] MEDS: FIBER SUPPLEMENT G TUBE SCH (10:29)
[2018-08-17] MEDS: Potassium Chloride LIQUID* 20 MEQ PACKET PO SCH (10:29)
[2018-08-17] MEDS: Nystatin OINT* 15 GM TOPICAL SCH ×3 (10:32→21:58)
[2018-08-17] MEDS: Atenolol TAB* 25 MG PO SCH ×2 (10:32→21:50)
[2018-08-17] MEDS: amLODIPine TAB* 5 MG PO SCH (10:32)
[2018-08-17] MEDS: Famotidine TAB* 20 MG PO SCH (10:32)
[2018-08-17] MEDS: Nystatin SUSPENSION* 100000 UNITS/ML 5 ML UDC PO SCH ×4 (10:32→21:56)
[2018-08-17] MEDS: Lactobacillus Acidophilus* 1 TAB PO SCH (10:32)
[2018-08-17] MEDS: Lisinopril TAB* 10 MG PO SCH (10:32)
[2018-08-17] MEDS: Citalopram TAB* 20 MG PO SCH (10:32)
[2018-08-17] MEDS: Bacitracin OINTMENT* 0.5% 0.5 oz TUBE TOPICAL SCH ×2 (10:33→21:58)
[2018-08-17 10:56] LABS: Magnesium 2.1 mg/dL (1.9-2.7)
[2018-08-17] MEDS: Acetaminophen ADULT LIQ* 650 MG/20.3 ML UDC FEED TUBE PRN ×2 (15:54→21:50)
--- NOTE | 2018-08-17 23:42 | DS ---
CC: Dr. Jojo Clark; Dr. Frazier; Dr. Verdin, Endocrinology; Dr. Chicho Avila , Gastroenterology; Dr. Chand, Neurology; Dr. Campos, Gastroenterology; Dr. Huff, Neurology; Dr. Ricardo, [facility], [place], [place]; Dr. Watters; Dr. Weber; Dr. Baca * DISCHARGE SUMMARY: DATE OF ADMISSION: 07/17/18 DATE OF ANTICIPATED DISCHARGE: 08/18/18 DATE OF DICTATION: 08/17/18 in the afternoon. [facility] in [place], [place]. PRIMARY CARE PROVIDER: Dr. Jojo Clark CLAIM REP: Dr. Frazier DISCHARGE DIAGNOSES: 1. Acute respiratory failure due to multilobar pneumonia, status post multiple intubation and extubation trials. The patient was intubated and extubated a total of 3 times with failure to extubation and subsequent tracheostomy placement performed on 08/04/18, by Dr. Watters from General Surgery. 2. The patient is status post PEG tube placement on 08/07/18, by Dr. Avila from Gastroenterology. 3. C. diff-associated diarrhea, status post treatment with repeat stool testing negative for C. diff. 4. Left upper extremity deep venous thrombosis, treated with resolution of deep venous thrombosis on repeat Doppler evaluation. The patient's anticoagulation at that point needed to be interrupted due to GI bleed. 5. Acute lower GI bleed that occurred on 08/14/18, likely related to either hemorrhoidal or diverticular bleed in a patient who at that point was fully anticoagulated. 6. Acute kidney injury that was due to sepsis and pneumonia and resolved by the time of discharge. 7. Elevation of liver function tests, likely due to sepsis. 8. 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 9. Left upper extremity weakness, likely due to C4-C5 ana luisa compression and severe degenerative joint disease of the C-spine. The patient is not a good surgical candidate at this point. 10. Volume overload. The patient gained approximately 20 pounds during her hospital stay and is currently being diuresed. SECONDARY DIAGNOSES/PAST MEDICAL HISTORY: 1. History of atrial fibrillation as well as complete intraventricular block, status post dual cardiac pacemaker insertion originally in 2003 with generator exchange implant in 2012 and right lead fracture in 2014 that needed to be exchanged at that point. 2. History of hypertension. 3. History of papillary thyroid cancer, status post total thyroidectomy on , as well as NIXON ablation in April of 2018, performed at [facility]. 4. History of chronic right shoulder pain, status post prosthetic arthroplasty of the right shoulder. 5. History of chronic kidney disease, stage 3. 6. History of abdominal aortic aneurysm 3.7 to 4 cm. 7. History of Henoch-Schonlein purpura in the past. 8. History of postsurgical hypothyroidism. 9. History of hypertension. 10. Hyperlipidemia. 11. Status post remote tonsillectomy, hysterectomy, cataract removal. ALLERGIES: Include PENICILLIN, SULFA, DEMEROL, DARVON, ERYTHROMYCIN, NORTRIPTYLINE, BETA-BLOCKERS, IBUPROFEN, LIDODERM, TETANUS TOXOID, PLASTIC TAPE , OXYCODONE caused hallucinations, ADVIL caused kidney disease, MOTRIN - kidney disease, CLINDAMYCIN - diarrhea. MEDICATIONS AT DISCHARGE: Include: 1. Atenolol 25 mg b.i.d. Please note that the patient has a history of allergy to BETA-BLOCKERS, but she had been taking atenolol as prescribed by the anesthesia associate for the past several years. 2. Atorvastatin 80 mg daily. 3. Vitamin D3 2000 units daily. 4. Lexapro 10 mg daily. 5. Hydrocodone with acetaminophen 5/325 mg 1 to 2 tablets every 4 hours p.r.n. 6. Synthroid 150 mcg daily. 7. Multivitamin 1 tablet daily. 8. Omeprazole 20 mg daily. 9. Acetaminophen on a p.r.n. basis. 10. Albuterol/Atrovent nebulizers on a p.r.n. basis. 11. Norvasc 2.5 mg daily. 12. Artificial tears 1 drop both eyes on a p.r.n. basis. 13. Furosemide 40 mg daily. 14. Heparin flush to PICC line on a daily basis. 15. Lactobacillus/probiotic 1 tablet daily. 16. Lisinopril 40 mg daily. 17. Nystatin suspension swish and spit 4 times a day. 18. Potassium chloride 40 mEq daily that is liquid suspension. 19. Coumadin 2.5 mg daily, started on 08/17/18. LABORATORY DATA AND STUDIES PERFORMED DURING THE HOSPITAL STAY: On 08/17/18, white blood cell count 5.4, hemoglobin of 8.3, hematocrit of 56, MCV of 98, and platelets of 217. Last INR performed today was 1.01. Sodium was 138, potassium 3.6, chloride 97, carbon dioxide 34, BUN 17, creatinine 0.36. Liver function tests were elevated during the hospital stay with last reported on 08/02/18, AST was actually 242, ALT of 131, alkaline phosphatase of 132. Ammonia was noted to be at 50 on 07/17/18. The patient's CPK level peaked at 3148 on 08/02/18 and went down to 414 on 08/06. Current liver function tests are pending at the time of dictation. Her hepatitis testing showed nonreactive for hepatitis A IgM, hepatitis B surface antigen and B core IgM and C antibody. Influenza A and B testing was negative at admission. Microbiology tests were positive for toxigenic C. diff positive on 07/27/18 and repeat toxigenic C. diff negative on 08/02/18 as well as 08/15/18. Sputum culture grew Staphylococcus aureus and Klebsiella pneumoniae on . Blood cultures obtained at admission were negative growth. Sputum culture on 07/25/18 showed yeast. TSH last obtained on 07/30/[address] last obtained on 08/15/18. Impression: "There has been interval progression in the volume of left mastoid cell effusion relative to the most recent 07/26/18 CT examination. Please correlate to tenderness overlying the left mastoid processes. Otherwise, there are no CT apparent acute intracranial abnormalities." Chest x-ray last obtained on 08/12/18. Impression: "Chest x-ray findings consistent with worsening pulmonary edema including worsening pleural effusion. " The patient's venous Doppler study initially obtained on 07/26/18 of the left upper extremity showed grossly occlusive thrombus of the proximal segment of the left subclavian vein and paired brachial veins. A repeat venous Doppler on 08/10/18 of both upper extremities shows no evidence for DVT. Doppler study on 08/10/18 of bilateral lower extremities showed no DVT. Cervical spine CT obtained on 07/31/18. Impression: "Multilevel degenerative disk disease. Left pleural effusion with airspace disease in the right apex." CT of abdomen and pelvis obtained on 07/17/18. Impression: "Multifocal pneumonia. No etiology of the patient's elevated LFTs. Nonspecific left perirenal/periadrenal stranding without other findings to suggest pyelonephritis." Transthoracic echocardiogram obtained on 07/19/18. Conclusion: "The study is technically limited due to the patient being intubated and on ventilator. The left ventricular chamber size is normal. The left ventricle appears overall hyperdynamic with greater than 65% EF. Septal dyskinesis and relative hypokinesis of the base of the inferior wall. The right ventricular global systolic function is hyperdynamic. There was trace of mitral regurgitation. There was mild tricuspid regurgitation. Compared to prior echo from 08/12/17, EF stable. Basilar and inferior hypokinesis is new. Septal abnormality was seen previously. Prior EF was 60% to 65%. Valve function is not significantly changed." The patient's EEG reported on 07/18/18. Impression: "This is an abnormal awake and asleep EEG in an intubated patient with initially suppressed background while on propofol, but then transitioning to more awake and sleep state with some intermittent diffuse slowing with appropriate organization off propofol. These findings are suggestive of [id number] encephalopathy due to sedation. The tremors of the lower extremities were recorded during EEG and were not associated with any EEG abnormalities or epileptiform discharges." EMG noted on 08/03/18. Impression: "This is an abnormal but limited study, as the patient requested to not complete the EMG portion of the test. 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 In the correct clinical setting, these findings are consistent with critical illness myopathy and polyneuropathy." PROCEDURES DURING THE HOSPITAL STAY: Included PEG tube placement by Dr. Avila on 08/07/18 and tracheostomy placed by general surgeon, Dr. Watters, on . The patient is being discharged to [facility] with tracheostomy in place with oxygen saturation at 98% on 40% tracheostomy collar in place. The patient also is using [place] valve and is able to communicate without any problems using the valve. The patient is being discharged with PICC line in place. The patient is being discharged with Walsh in place that had been used due to use of the diuretic and for protection of her decubitus ulcers. The patient also is discharged with PEG tube in place with tube feeds to be continued with Glucerna at 1.2 kcal at 60 mL an hour continuously and supplementation with Beneprotein at 1 scoop mixed with 150 cc of water deliver 3 times a day via PEG. Please note that we checked medical records of Dr. Frazier's office, the patient' s anesthesia associate and it was noted that the patient's pacemaker was checked on and had estimated remaining longevity of 5.5 years based on past history. The model is [employer] Sensia [id number], serial number [id number]. HOSPITALIZATION COURSE: Kina Davis is a 78-year-old female, who had history of papillary thyroid cancer with surgeries in the mid of 2017. She also had history of fall in the past year with subsequent right shoulder pain and neck pain. She also has had problems after the thyroid surgery in February of 2018 with swallowing, but her swallow study at that point did not show anything significant. The patient came into the hospital on 07/17/18 with acute respiratory failure due to bilateral pneumonia. She was intubated. She had severe sepsis and needed to be placed on pressors. She suffered from acute kidney injury and LFT elevation. She was encephalopathic. The patient was reintubated 2 times after the initial intubation and failed extubations 3 times. She was diagnosed with critical illness myopathy after she was noted to have bilateral lower extremity weakness and EMG as well as Neurology consultation showed likely polyneuropathy. At that point, her CPKs were markedly elevated, they peaked over 3000 in the mid of July 2018 to later resolve. It became apparent during the hospital stay that the patient is not going to be able to be extubated safely and tracheostomy was performed by Dr. Watters, general surgeon, on 08/04/18. That was followed by PEG tube placement by Dr. Avila on 08/07/18. The patient was eventually transferred to medical floor from the intensive care unit on 08/12/18. She was noted to have an episode of C. diff- associated diarrhea during the ICU stay that was treated with vancomycin. By the time of her transfer to the medical floor, she also completed her full course of antibiotics for pneumonia. Her diarrhea slowly started resolving and repeated stool for C. diff testing obtained on 08/15/18 was negative for C. diff. Due to continuation of tube feeds, the patient did have several bowel movements a day, on an average 3 to 5 bowel movements a day. The patient developed left upper extremity DVT over the course of her hospital stay. She was placed on Lovenox, but unfortunately she was noted to have bright red blood per rectum with bowel movements on 08/14/18 and her anticoagulation had to be reversed and stopped. At that point, Dr. Weber saw the patient in consultation and concluded that the patient likely had hemorrhoidal or diverticular bleed. Anticoagulation was held for a couple of days. Repeat Doppler studies of the left upper extremity as well as repeat Doppler studies of all the remaining extremities were negative for DVT. Nevertheless, the patient has a history of atrial fibrillation and she was restarted on Coumadin at 2.5 mg on a daily basis a day prior to her discharge to [facility] on 08/17/18. By the time of discharge, the patient was noted to continue to have bilateral lower extremity weakness to the point that she is unable to raise her legs against gravity. Her Babinski's are negative. She continued also to have left upper extremity weakness for which Neurology evaluated the patient. It was noted C-spine degenerative disk disease with compression of C4 and C5 nerve root , likely contributing to the patient's symptoms of left upper extremity weakness. At that point, the patient declined neurosurgical intervention or further evaluation by Neurosurgery. She is also a very poor surgical candidate at this point. The patient was noted to be in volume overload by the end of her hospital stay since she gained approximately over 20 pounds. She was diuresed on a daily basis with Lasix for the past 5 days. She is going to be placed on p.o. Lasix at discharge. Her weight a day prior to discharge was 181 pounds and her baseline weight prior to her critical illness was 160 pounds. The patient was seen by Dr. Lucio from ENT on 08/16/18, and her tracheostomy was cannulated and exchanged with tube of size 6 versus size 8, which the patient had before. The day prior to discharge, the patient had been doing well with trials of plugging the tube and breathing via nasal cannula through her nose. It is likely that she will be able to be weaned off the trach in the near future. The patient is still to undergo swallow evaluation to see if she is able to take anything p.o. by the time of discharge. The patient was noted to have stage II decubitus ulcer on the left buttock and left ischial area of approximately 2 to 3 cm in diameter. Wound care was provided to the patient and consulted. The patient also has wounds on the left upper thigh that are healing blisters after central line was placed in the area of the left groin. By the time of discharge, the patient is most of the time alert and oriented x3 , although she has problems with confusion at night as noted by nursing. She is pleasant, cooperative. Her right arm has 5/5 motor distally, although she is unable to raise it above her shoulder height due to her history of osteoarthritis and prosthesis in the right shoulder. The left hand is stronger distally and proximally. The patient is unable to raise it by more than 35 degrees. Bilateral lower extremities are very weak with Babinski's negative, but the patient is unable to raise her legs against gravity at this point. The patient has a PEG tube in place as well as PICC line in place, Walsh, and trach collar that she [facility] in [place], [place]. For further details of the patient's long and complicated hospitalization, please see daily progress notes. For physical exam at the time of discharge, please see daily progress notes. TIME SPENT: Approximately 60 minutes was spent on the patient's discharge. [id number]/[facility] #: [id number] [place]
[2018-08-18] MEDS: Ipratropium 0.5MG/2.5ML NEB* 0.5 MG/2.5 ML NEB.SOLN INH SCH (01:06)
[2018-08-18] MEDS: Artificial Tears* 15 ML BTL BOTH EYES PRN (05:25)
[2018-08-18] MEDS: Heparin VIAL(*) 5000 UNITS/ML VIAL (FIVE THOUSAND) SUBCUT SCH (05:26)
[2018-08-18] MEDS: Levothyroxine TAB* 150 MCG TAB NG TUBE SCH (05:26)
[2018-08-18 06:01] LABS: INR 1.02 (0.77-1.02)
[2018-08-18 06:15] LABS: Albumin 2.5 g/dL (3.2-5.2); Albumin/Globulin Ratio 0.7 (1-3); Calcium 8.4 mg/dL (8.6-10.3); EGFR African American 217.3 (>60); EGFR Non-African American 179.6 (>60); Globulin 3.5 g/dL (2-4); Indirect Bilirubin 0.2 mg/dL (0.3-1.0); Potassium 3.6 mmol/L (3.5-5.0); Total Bilirubin 0.3 mg/dL (0.2-1.0)
[2018-08-18 07:41] VITALS: BP 157/102
[2018-08-18] MEDS: Lisinopril TAB* 10 MG PO SCH (07:59)
[2018-08-18] MEDS: Furosemide IV* 10 MG/ML 2 ML VIAL (20 MG) IV SCH (07:59)
[2018-08-18] MEDS: Potassium Chloride LIQUID* 20 MEQ PACKET PO SCH (07:59)
[2018-08-18] MEDS: Citalopram TAB* 20 MG PO SCH (08:00)
[2018-08-18] MEDS: Lactobacillus Acidophilus* 1 TAB PO SCH (08:00)
[2018-08-18] MEDS: Atenolol TAB* 25 MG PO SCH (08:00)
[2018-08-18] MEDS: Nystatin SUSPENSION* 100000 UNITS/ML 5 ML UDC PO SCH (08:00)
[2018-08-18] MEDS: amLODIPine TAB* 5 MG PO SCH (08:01)
[2018-08-18] MEDS: Famotidine TAB* 20 MG PO SCH (08:03)
[2018-08-18] MEDS: Nystatin OINT* 15 GM TOPICAL SCH (08:07)
[2018-08-18] MEDS: FIBER SUPPLEMENT G TUBE SCH (08:09)
[2018-08-18] MEDS: Acetaminophen ADULT LIQ* 650 MG/20.3 ML UDC FEED TUBE PRN (08:16)
[2018-08-18] MEDS: Bacitracin OINTMENT* 0.5% 0.5 oz TUBE TOPICAL SCH (08:39)
--- NOTE | 2018-08-18 11:40 | DS ---
CC: Dr. Jojo Clark; Dr. Frazier; Dr. Verdin, Endocrinology; Dr. Chicho Avila , Gastroenterology; Dr. Chand, Neurology; Dr. Campos, Gastroenterology; Dr. Huff, Neurology; Dr. Ricardo, [place], [place]; Dr. Watters; Dr. Weber; Dr. Baca * DISCHARGE SUMMARY: DATE OF ADMISSION: DATE OF DISCHARGE: 08/18/18 ADDENDUM: Please note that for the past 24 hours since the dictation of patient 's original discharge summary, the patient underwent swallow/speech therapy evaluation, who okayed the patient for pureed diet with nectar thick liquids. The patient also had laboratory values obtained and chemistry on 08/18/18, which showed sodium of 136, potassium 3.6, chloride 96, carbon dioxide 35, BUN 14, creatinine 0.35. Liver function tests showed AST of 25, ALT of 45, alkaline phosphatase of 76, total protein of 6.0, albumin of 2.5, of 3.5. PHYSICAL EXAM AT THE TIME OF DISCHARGE: Blood pressure of 142/65, heart rate of 70 and regular, respiratory rate 16, oxygen saturation 95% on tracheostomy collar at 35%, temperature of 98.1. General: The patient is a very pleasant 78 -year-old female who is in no acute distress. Alert, awake, and oriented x3. HEENT: Head atraumatic, normocephalic. Eyes: Pupils are equal and reactive to light and accommodation. Oropharynx clear. Mucosa moist. Neck: Supple with tracheostomy in place. Respiratory: Faint crackles at bilateral bases. Cardiovascular: Regular rate and rhythm. No murmur. Abdomen: Soft, minimally tender around the PEG site tube. PEG tube in place in the left upper quadrant with tenderness with no rebound, no guarding and bowel sounds are present in all 4 quadrants. Extremities: There is 1+ pitting entire bilateral lower extremity edema. Pulses are +2 bilaterally. There is no clubbing or cyanosis. On evaluation of the skin, the patient has decubiti ulcer of stage II of approximately 1 cm of the sacrum surround by stage I skin changes of surrounding skin of approximately 10 cm in diameter. The patient also has healing blisters in the left upper thigh noted. Neuro Evaluation: The patient is unable to raise the right upper extremity above the shoulder level and that is due to chronic right shoulder surgery and problems. The left lower extremity is significantly weak and proximally at 4/5 and distally at 4+/5. The patient is unable to raise it above 30 to 40 degrees. The patient is able to use Churdan- Passy valve and speech is clear. Cranial nerves II through XII grossly intact. In regards to patient's lower extremities, she is unable to raise them off bed at all. Babinski's are negative bilaterally. She is able to move them somewhat against but not against gravity. The patient is being discharged with PICC line in place and Walsh in place. Please note that this is a short summary of patient's hospitalization. Please refer to further medical records for details. [id number]/[facility] #: [id number] MTDD
== END 2018-08-18 09:30 | DRG 3 ==
LOC: ED 15:20 → ICU 17:35 → SSU 08-11 14:43 → MED 08-14 16:46
PROVIDERS: ADMIT Internal Medicine Critical Care Medicine; ATTEND Internal Medicine
PROC: 5A1955Z Respiratory Ventilation, Greater than 96 Consecutive Hours (ICD-10-PCS; 2018-07-17)
PROC: 0BH17EZ Insertion of Endotracheal Airway into Trachea, Via Natural or Artificial Opening (ICD-10-PCS; 2018-07-17)
PROC: 06HN33Z Insertion of Infusion Device into Left Femoral Vein, Percutaneous Approach (ICD-10-PCS; 2018-07-17)
PROC: 0B9C8ZX Drainage of Right Upper Lung Lobe, Via Natural or Artificial Opening Endoscopic, Diagnostic (ICD-10-PCS; 2018-07-26)
PROC: 4A00X4Z Measurement of Central Nervous Electrical Activity, External Approach (ICD-10-PCS; principal; 2018-07-27)
PROC: 0B9L8ZZ Drainage of Left Lung, Via Natural or Artificial Opening Endoscopic (ICD-10-PCS; 2018-08-02)
PROC: 4A00X4Z Measurement of Central Nervous Electrical Activity, External Approach (ICD-10-PCS; 2018-08-03)
PROC: 0B110F4 Bypass Trachea to Cutaneous with Tracheostomy Device, Open Approach (ICD-10-PCS; 2018-08-07)
PROC: 0DH63UZ Insertion of Feeding Device into Stomach, Percutaneous Approach (ICD-10-PCS; 2018-08-07)
DX: A41.9 Sepsis, unspecified organism (principal); J18.9 Pneumonia, unspecified organism; J96.01 Acute respiratory failure with hypoxia; R65.21 Severe sepsis with septic shock; I21.A1 Myocardial infarction type 2; G93.41 Metabolic encephalopathy; A04.72 Enterocolitis due to Clostridium difficile, not specified as recurrent; E87.3 Alkalosis; K92.2 Gastrointestinal hemorrhage, unspecified; E46 Unspecified protein-calorie malnutrition; I82.622 Acute embolism and thrombosis of deep veins of left upper extremity; N17.9 Acute kidney failure, unspecified; I48.91 Unspecified atrial fibrillation; E78.00 Pure hypercholesterolemia, unspecified; Z96.611 Presence of right artificial shoulder joint; K59.00 Constipation, unspecified; G89.29 Other chronic pain; M54.5 Low back pain; E80.6 Other disorders of bilirubin metabolism; R51 Headache; E11.42 Type 2 diabetes mellitus with diabetic polyneuropathy; E89.0 Postprocedural hypothyroidism; F32.9 Major depressive disorder, single episode, unspecified; Z88.6 Allergy status to analgesic agent; Z88.1 Allergy status to other antibiotic agents; Z88.0 Allergy status to penicillin; Z88.2 Allergy status to sulfonamides; Z88.7 Allergy status to serum and vaccine; Z88.8 Allergy status to other drugs, medicaments and biological substances; Z86.19 Personal history of other infectious and parasitic diseases; Z90.710 Acquired absence of both cervix and uterus; Z95.0 Presence of cardiac pacemaker; Z95.810 Presence of automatic (implantable) cardiac defibrillator; Z85.850 Personal history of malignant neoplasm of thyroid; I12.9 Hypertensive chronic kidney disease with stage 1 through stage 4 chronic kidney disease, or unspecified chronic kidney disease; N18.3 Chronic kidney disease, stage 3 (moderate); E11.22 Type 2 diabetes mellitus with diabetic chronic kidney disease; Z68.32 Body mass index [BMI] 32.0-32.9, adult; G72.9 Myopathy, unspecified; M50.321 Other cervical disc degeneration at C4-C5 level
CPT/HCPCS: 31622; 31629; 36415; 36600; 70450; 71045; 71046; 72125; 74177; 76705; 80048; 80053; 80061; 80074; 80076; 80202; 81003; 81015; 82140; 82150; 82272; 82550; 82607; 82803; 82977; 83605; 83690; 83735; 83880; 84100; 84439; 84443; 84478; 84479; 84484; 85014; 85018; 85025; 85027; 85049; 85060; 85379; 85610; 86850; 86900; 86901; 86927; 87040; 87070; 87071; 87077; 87086; 87106; 87186; 87205; 87493; 87641; 93005; 93306; 93308; 93970; 94002; 94003; 94640; 94667; 94668; 95812; 95816; 95885; 95910; 99156; 99157; 99283; 99285; A9270-GY; C1751; G8978-GP-CM; G8978-GP-CN; G8979-GP-CL; G8979-GP-CN; G8980-GP-CN; G8987-GO-CM; G8987-GO-CN; G8988-GO-CJ; G8988-GO-CM; G8989-GO-CM; J0330; J0360; J0456; J0610; J0696; J0780; J1120; J1644; J1650; J1940; J2060; J2250; J2405; J2704; J2720; J2765; J2930; J3010; J3370; J3430; J3475; J3480; J3490; P9017; P9047; Q9967

== ENCOUNTER → 2018-11-01 16:09 | Emergency (ER) | payer MEDICARE ==
[2018-11-01 23:02] VITALS: BP 134/88
== END | disposition left against medical advice (07) ==
LOC: ED 16:09
DX: Z53.21 Procedure and treatment not carried out due to patient leaving prior to being seen by health care provider (principal)

== ENCOUNTER 2018-11-06 15:45 | Emergency (ER) | payer MEDICARE ==
[2018-11-06 16:08] VITALS: BP 134/81
--- NOTE | 2018-11-06 16:56 | UC ---
Abdominal Pain Male HPI - HPI Summary HPI Summary: 78 year old female recently admitted for [facility] with aspiration PNA with long course including rehabilitation, trach, presents with burning with urination, frequent urination, incontinence. Patient states had catheter for several weeks, removed in rehabilitation, no incontinence since removal. Had 2-3 UTIs patient believes during hospital course. No feve,r chills. + abdominal pains, worse R sided. - History of Current Complaint Chief Complaint: UCGU Stated Complaint: ABDOMINAL PAIN Time Seen by Provider: 11/06/18 16:08 Hx Obtained From: Patient, Family/Voice Writing Reporter - Onset/Duration: Sudden Onset, Lasting Hours Timing: Constant Severity Initially: Moderate Severity Currently: Moderate Pain Intensity: 10 Pain Scale Used: 0-10 Numeric Location: Suprapubic - radiating right side Radiates to: Back Character: Aching, Sharp - Allergies/Home Medications Allergies/Adverse Reactions: Allergies Allergy/AdvReac Type Severity Reaction Status Date / Time adhesive tape Allergy Rash Verified 11/06/18 16:11 Beta-Blockers Allergy Unknown Verified 11/06/18 16:11 (Beta-Adrenergic Bloc Reaction Details erythromycin base Allergy Unknown Verified 11/06/18 16:11 Reaction Details lidocaine [From Lidoderm] Allergy Unknown Verified 11/06/18 16:11 Reaction Details meperidine [From Demerol] Allergy Unknown Verified 11/06/18 16:11 Reaction Details nortriptyline Allergy Unknown Verified 11/06/18 16:11 Reaction Details NSAIDS (Non-Steroidal Allergy See Comment Verified 11/06/18 16:11 Anti-Inflamma oxycodone Allergy Altered Verified 11/06/18 16:11 Mental Status Penicillins Allergy Rash Verified 11/06/18 16:11 propoxyphene [From Darvon] Allergy Unknown Verified 11/06/18 16:11 Reaction Details Sulfa (Sulfonamide Allergy Rash Verified 11/06/18 16:11 Antibiotics) tetanus toxoid, adsorbed Allergy Unknown Verified 11/06/18 16:11 Reaction Details hydrocodone AdvReac Altered Verified 11/06/18 16:11 Mental Status Home Medications: Home Medications Cholecalciferol (Vitamin D3) [Vitamin D3] 1,000 unit PO DAILY 11/06/18 [History Confirmed 11/06/18] DULoxetine DR MERRILL* [Cymbalta CAP*] 20 mg PO BID 11/06/18 [History Confirmed ] Pantoprazole TAB * [Protonix TAB*] 20 mg PO DAILY 11/06/18 [History Confirmed ] Potassium Chloride LIQUID* [Klor-Con LIQUID*] 10 meq PO DAILY 11/06/18 [History Confirmed 11/06/18] Warfarin TAB(*) [Coumadin TAB(*)] 4 mg PO DAILY 11/06/18 [History Confirmed ] PMH/Surg Hx/FS Hx/Imm Hx Previously Healthy: No - [facility] Cardiovascular History: Cardiac Disease, Hypertension Respiratory History: Pneumonia Other History Of: Anticoagulant Therapy - Surgical History Surgical History: Yes Surgery Procedure, Year, and Place: PACEMAKER-; HYSTERECTOMY; TURMOR REMOVED RIGHT FEMUR; RIGHT PARTIAL SHOULDER REPLACEMENT. THYROID RESECTION - Family History Known Family History: Positive: Other - negative breast CA Family History: No FHx of breast CA - Social History Alcohol Use: Rare Substance Use Type: None Smoking Status (MU): Never Smoked Tobacco - Immunization History Most Recent Influenza Vaccination: 05/2018 Most Recent Tetanus Shot: unknown Most Recent Pneumonia Vaccination: 02/07/2015 Review of Systems All Other Systems Reviewed And Are Negative: Yes Constitutional: Positive: Chills Genitourinary: Positive: Dysuria, Frequency, Urgency Is Patient Immunocompromised?: No Physical Exam Triage Information Reviewed: Yes Appearance: Well-Appearing, No Pain Distress, Well-Nourished Vital Signs: Initial Vital Signs Temp 97.9 F 11/06/18 16:02 Pulse 76 11/06/18 16:02 Resp 16 11/06/18 16:02 BP 134/81 11/06/18 16:02 Pulse Ox 100 11/06/18 16:02 Vital Signs Reviewed: Yes Eyes: Positive: Conjunctiva Clear Abdomen Description: Positive: No Organomegaly, Soft, Bruit, Other: - TTP suprapubic extending to RLQ, not flank tenderness, neg CVA b/l. Negative: CVA Tenderness (R), CVA Tenderness (L), Guarding Musculoskeletal: Positive: Other: - resting in wheelchair, unable to assess gait Neurological Exam: Normal Skin Exam: Normal Abd Pain Male Course/Dx - Course Course Of Treatment: UA + for blood, cultures sent, treated with Cipro for clinical UTI, awaiting cultures, reviewed findings with patient, patient has a history of hematuria without findings on workup. Awaiting cultures. - Differential Dx/Clinical Impression Differential Diagnosis/HQI/PQRI: Urinary Tract Infection Provider Diagnosis: UTI (urinary tract infection) Discharge - Sign-Out/Discharge Documenting (check all that apply): Patient Departure All imaging exams completed and their final reports reviewed: No Studies - Discharge Plan Condition: Stable Disposition: HOME Prescriptions: Ciprofloxacin TAB* [Cipro 500 MG TAB*] 500 mg PO BID #10 tab Patient Education Materials: Urinary Tract Infection in Women (ED) Referrals: Jojo Clark MD [Primary Care Provider] - Additional Instructions: - Follow up with primary physician within 1-2 weeks for repeat evaluation - GO to ER with flank pain, fever > 102, increased symptoms - Antibiotics twice daily x 5 days - Increase fluid intake - Tylenol as needed for pain - Urine cultures should be completed within 48 hours - Billing Disposition and Condition Condition: STABLE Disposition: Home
--- NOTE | 2018-11-08 16:18 | UC ---
- Progress Note Progress Note: Notify pt no UTI stop cipro TO ER IF ABD PAIN persists if better see PCP this week Course/Dx - Diagnoses Provider Diagnoses: UTI (urinary tract infection) Discharge - Sign-Out/Discharge Documenting (check all that apply): Post-Discharge Follow Up All imaging exams completed and their final reports reviewed: No Studies - Discharge Plan Condition: Stable Disposition: HOME Prescriptions: Ciprofloxacin TAB* [Cipro 500 MG TAB*] 500 mg PO BID #10 tab Patient Education Materials: Urinary Tract Infection in Women (ED) Referrals: Jojo Clark MD [Primary Care Provider] - Additional Instructions: - Follow up with primary physician within 1-2 weeks for repeat evaluation - GO to ER with flank pain, fever > 102, increased symptoms - Antibiotics twice daily x 5 days - Increase fluid intake - Tylenol as needed for pain - Urine cultures should be completed within 48 hours - Billing Disposition and Condition Condition: STABLE Disposition: Home
== END 2018-11-06 17:10 | disposition home or self-care (01) ==
LOC: UCEAST 15:45
DX: N39.0 Urinary tract infection, site not specified (principal); R31.9 Hematuria, unspecified; Z87.440 Personal history of urinary (tract) infections; I11.9 Hypertensive heart disease without heart failure; Z79.01 Long term (current) use of anticoagulants; Z95.0 Presence of cardiac pacemaker; Z96.611 Presence of right artificial shoulder joint; Z88.6 Allergy status to analgesic agent; Z88.4 Allergy status to anesthetic agent; Z88.1 Allergy status to other antibiotic agents; Z88.5 Allergy status to narcotic agent; Z88.0 Allergy status to penicillin; Z88.2 Allergy status to sulfonamides; Z88.8 Allergy status to other drugs, medicaments and biological substances; Z91.048 Other nonmedicinal substance allergy status
CPT/HCPCS: 81003; 87086; 99212; G0463

== ENCOUNTER 2018-11-12 08:29 | Emergency (ER) | payer MEDICARE ==
--- OUTSIDE RECORDS SUMMARY | 2018-11-12 08:41 | XMS REPORT | Continuity of Care Document ---
:1940 External Reference #:[id number] Author Name Jose Miguel Mejía M.D. Address [address] [place] [address] Care Team Providers Name Role Phone Jojo Clark M.D. Primary Care Physician Unavailable Payers Date Identification Numbers Payment Provider Subscriber Policy Number: [id number] [place] Kina Rochaell PayID: [id number] [address] [place] [address] Policy Number: [id number] [facility] Kina Lo PayID: [id number] [address] [place] [address] Advance Directives Description No Information Available Problems Active Problems Provider Date Essential hypertension Jose Miguel Mejía M.D. Onset: 03/16/2005 Candidiasis of mouth Jose Miguel Mejía M.D. Onset: 05/31/2011 Family History Date Family Member(s) Observation Comments Father Heart Disease Father Prostate Cancer Mother Diabetes Mother Heart Attack First Brother Leukemia First Sister Pancreatic Cancer Paternal Grandmother Cancer Paternal Grandmother Heart Attack Social History Type Date Description Comments Sex Unknown Occupation Retired Tobacco Use Start: Unknown Never Smoked Cigarettes Tobacco Use Start: Unknown Never Smoked Cigars Tobacco Use Start: Unknown Never Smoked A Pipe Smoking Status Reviewed: 11/06/18 Never Smoked A Pipe Smokeless Tobacco Never Used Smokeless Tobacco ETOH Use Currently occasionally consumes alcohol Tobacco Use Start: Unknown Patient has never smoked Allergies, Adverse Reactions, Alerts Active Allergies Reaction Severity Comments Date Penicillin 03/16/2005 Sulfa 03/16/2005 Demerol 03/16/2005 Darvon 03/16/2005 Erythromycin 07/19/2007 Ibuprofen CANT TAKE BECAUSE OF KIDNEY DISEASE 03/26/2010 Nortriptyline 04/07/2016 Beta Augustine 04/07/2016 Lidoderm 04/07/2016 Tetanus Toxoids 04/07/2016 Tape 04/07/2016 Medications Active Medications SIG Qnty Indications Ordering Provider Date Atenolol Unknown 25mg Tablets Warfarin Sodium Unknown 4mg Tablets Tramadol HCL Take 1 Tablet By Unknown 50mg Tablets Mouth Three Times Daily as Needed -- Maximum Daily Dose Of 3 Perday Duloxetine HCL Unknown 20mg Caps DR Rahman Escitalopram Oxalate Take 1 Tablet By Unknown 10mg Mouth Every Day Tablets Levothyroxine Sodium Yair Cooper 150mcg Tablets Prinivil daily Unknown 10mg Tablets Furosemide daily Unknown 40mg Tablets Potassium Chloride Dee daily Unknown ER 10Meq Tablets ER Amlodipine Besylate daily Unknown 2.5mg Tablets Pantoprazole Sodium daily Unknown 20mg Tablets Vitamin D3 daily Unknown 1000Unit Capsules Cranberry daily Unknown 425mg Capsules History Medications No Active Medications Unknown 04/07/2016 - 04/07/2016 Clindamycin HCL 1 po qid 40caps 527.2 Jose Miguel Christy 12/03/2011 - 300mg Miguel Ángel Mejía 09/01/2012 Capsules Biotene PBF Dry Mouth 529.6-1 Jose Miguel Christy 10/13/2011 - Mouthwash Miguel Ángel Mejía 04/07/2016 Liquid Mycelex Trouches 1 dissolve in 50units 112.0 Jose Miguel Christy 07/23/2011 - 10mg mouth 5 times a Miguel Ángel Mejía 04/07/2016 Trouches day Nystatin Swish and swallow 1pint 529.6-1 Jose Miguel Christy 07/02/2011 - [id number] 2 ml 4 times per Miguel Ángel Mejía 07/23/2011 Suspension day Mycelex Trouches 1 per mouth 5 70units 112.0 Jose Miguel Christy 05/31/2011 - 10mg times per day Miguel Ángel Mejía 07/02/2011 Trouches Clindamycin HCL 1 Tab By Mouth 4 40caps John EKaryn 07/19/2007 - 150mg Times A Day For MD Emelia 03/26/2010 Capsules 10 Days Calcium John Batista 10/27/2006 - MD Emelia 04/07/2016 Omeprazole Unknown 10/26/2006 - 04/07/2016 Vytorin Unknown 08/14/2006 - 10mg;80 mg 07/19/2007 Tablets Calcium Unknown 08/14/2006 - 10/27/2006 Paroxetine Unknown 10/03/2005 - 04/07/2016 Nexium Unknown 05/10/2005 - 10/27/2006 Vitamins Multiple Unknown 03/15/2005 - 04/07/2016 Caplets Prilosec Unknown 03/15/2005 - Capsules 05/11/2005 Paxil Unknown 03/15/2005 - Tablets 10/05/2005 Coumadin Unknown 03/15/2005 - Tablets 04/07/2016 Zetia Unknown 03/15/2005 - 10mg Tablets 08/15/2006 Lipitor 14Days Unknown 03/15/2005 - Tablets 08/15/2006 Atenolol Unknown 03/15/2005 - Tablets 04/07/2016 Diovan Unknown 03/15/2005 - Tablets 03/26/2010 Vitamin D as directed Cotton, - (Cholecalciferol) Jojo M.Garrett 04/08/2016 1000Unit Capsules Multivitamins 1 by mouth every Cotton, - Capsules day Jojo M.DKaryn 04/08/2016 Atenolol 1 by mouth every Cotton, - 25mg Tablets day Jojo M.DKaryn 04/08/2016 Omeprazole As directed Cotton, - Jojo M.DKaryn 04/08/2016 Omeprazole 1 tab by mouth 30 Cotton, - 20mg min before Jojo M.DKaryn 11/07/[address] breakfast and dinner Atenolol 1 by mouth twice Cotton, - 50mg Tablets daily Jojo M.DKaryn 11/07/2018 Multivitamins 1 by mouth every Self - Capsules day 11/07/2018 Coumadin 1 tabs by mouth Cotton, - 5mg Tablets every day Jojo M.DKaryn 11/07/2018 Paroxetine HCL 1 by mouth every Cotton, - 40mg day Jojo M.D. 11/07/2018 Tablets Atorvastatin Calcium 1 by mouth every Cotton, - day Jojo M.D. 11/07/2018 40mg Tablets Levothyroxine Sodium 1 by mouth every Cotton, - day Jojo M.D. 11/07/2018 75mcg Tablets Triamcinolone as directed Cotton, - Acetonide Jojo M.D. 11/07/2018 0.025% [facility]ment [facility] am/off in at [facility] 11/07/2018 night Calcium 500 + D 1 by mouth twice Cotton, - a day Jojo M.D. 11/07/2018 [id number] Tablets Fish Oil as directed Cotton, - 500mg Capsules Jojo M.D. 11/07/2018 Co Q-10 1 by mouth every Cotton, - 50mg Capsules day Jojo M.D. 11/07/2018 Coumadin 1 tabs by mouth Cotton, - 5mg Tablets every day Jojo M.D. 04/08/2016 Paroxetine HCL As directed Cotton, - 40mg Jojo M.D. 04/08/2016 Tablets Valacyclovir HCL as directed Cotton, - 500mg Jojo M.D. 04/08/2016 Tablets Atorvastatin Calcium 1 by mouth every Cotton, - day Jojo M.D. 04/08/2016 80mg Tablets Levothyroxine Sodium 1 by mouth every Cotton, - day Jojo M.D. 04/08/2016 100mcg Tablets Lipitor Unknown - 04/07/2016 Co Q 10 Unknown - 04/07/2016 Vitamin D Unknown - 04/07/2016 Pravastatin Sodium Unknown - 08/23/2011 Fluconazole Unknown - 04/07/2016 Refresh Eye Itch Unknown - Relief 04/07/2016 Fortunato 128 Unknown - 04/07/2016 Restasis Unknown - 0.05% Emulsion 07/02/2011 Cod Liver Oil Unknown - 04/07/2016 Zetia Unknown - 05/31/2011 Lipitor Unknown - 07/23/2011 Immunizations Description No Information Available Vital Signs Date Vital Result Comment 11/07/2018 2:58pm Weight 152.00 lb Weight 68.947 kg Height 64 inches 5'4" Height in cm's 162.6 cm BMI (Body Mass Index) 26.1 kg/m2 04/08/2016 3:19pm BP Systolic 140 mmHg BP Diastolic 78 mmHg Heart Rate 78 /min Respiratory Rate 17 /min Weight 170.00 lb Weight 77.112 kg Height 64 inches 5'4" Height in cm's 162.6 cm BMI (Body Mass Index) 29.2 kg/m2 09/01/2012 10:25am BP Systolic 160 mmHg BP Diastolic 84 mmHg Heart Rate 72 /min Respiratory Rate 16 /min Weight 176.00 lb Weight 79.834 kg Height 64 inches 5'4" Height in cm's 162.6 cm BMI (Body Mass Index) 30.2 kg/m2 11/11/2011 2:25pm BP Systolic 119 mmHg BP Diastolic 76 mmHg Heart Rate 69 /min Respiratory Rate 16 /min Weight 175.00 lb Weight 79.380 kg Height 64 inches 5'4" Height in cm's 162.6 cm BMI (Body Mass Index) 30.0 kg/m2 05/31/2011 11:03am BP Systolic 109 mmHg BP Diastolic 69 mmHg Heart Rate 72 /min Respiratory Rate 16 /min Weight 180.00 lb Weight 81.648 kg Height 63.5 inches 5'3.50" Height in cm's 161.3 cm BMI (Body Mass Index) 31.4 kg/m2 01/09/2008 11:24am BP Systolic 125 mmHg BP Diastolic 77 mmHg Heart Rate 69 /min Respiratory Rate 16 /min 07/19/2007 4:31pm BP Systolic 108 mmHg BP Diastolic 59 mmHg Heart Rate 70 /min Respiratory Rate 15 /min 08/15/2006 3:07pm BP Systolic 96 mmHg BP Diastolic 65 mmHg Heart Rate 70 /min Respiratory Rate 16 /min 03/16/2005 9:08am BP Systolic 128 mmHg BP Diastolic 73 mmHg Heart Rate 70 /min Respiratory Rate 16 /min Results Test Date Facility Test Result H/L Range Note Laboratory test 10/14/2011 [facility] Vitamin B12 798 pg/mL 180-914 finding c/o Department [place] [address] [phone] Iron & Iron 10/14/2011 [facility] Iron Total 51 g/ dL 28-170 Binding Capacity c/o Department [place] [address] [phone] Unsaturated Iron Binding 327 g/dL Total Iron Binding Capacity 378 g/dL 250-450 % Iron Saturation 13 % Low 15-55 Laboratory test 10/14/2011 [facility] Zinc 0.79 g/ mL 0.66-1.10 1 finding c/o Department [place] [address] [phone] Vitamin B6 21 g/L 5-50 2 Vitamin B1 Whole Blood 134 nmol/L 80-150 3 Laboratory test 08/26/2011 [facility] Shana Peck ( SEE NOTE) 4, 5 finding c/o Department [place] [address] [phone] Laboratory test 07/02/2011 [facility] Fungal Cult < pending> finding c/o Department of Laboratories [place] [address] [phone] Laboratory test 07/02/2011 [facility] Culture -------- ---- 6 finding c/o Department of Laboratories Sensitivity/Gr ---- <[place] [address] NOTE> [phone] Fungal Cult Other Sources <SEE NOTE> 7 Laboratory test finding 03/22/2005 [facility] BUN normal c/o Department [place] [address] [phone] Creatinine normal B12 high 1 Test Performed by: [facility] Dpt of Lab Med and Pathology [address] [place] [address] Numerical Tool Programmer: Ángel Roach III, M.D. 2 Test Performed by: [address] [address] Numerical Tool Programmer: Viky Cuello, Ph.D. 3 High-Performance Liquid Chromatography (HPLC) with fluorescence detection Test Performed by: [facility] Dpt of Lab Med and Pathology [address] [place] [address] Numerical Tool Programmer: Ángel Roach III, M.D. 4 1311. 5 TEST RESULT RETURNED FROM REFERENCE LABORATORY. HARDCOPY REPORT TO BE SENT TO PHYSICIAN(S) OFFICE. 6 RUN DATE: 07/06/11 [facility] NMI LIVE PAGE 1 RUN TIME: 0900 Specimen Inquiry RUN USER: INTERFACE Name: KINA LO Accashli#: [id number] Status: REG REF Re07/02/11 Age/Sex: 70/F Unit#: [id number] Location: [facility] : 39 SPEC #: [id number] JAZZMINE: 07/02/11-1110 STATUS: JAYLAN LOMBARDI #: [id number] RECD: 07/02/11-[facility] DR: UlLeonor diggs NP SOURCE: MISC ENTR: 07/02/11-[address]: TIKAESC: SINUS,LMAX ORDERED: CULT MIS/DIANA QUERIES: MEDENT REQUISITION # [id number] ACT WKST: B 07/06/11 #1 Procedure Result Verified Site > CULTURE SENSITIVITY Final 07/06/11- 0900 ML FINAL: NO GROWTH DAY 4 > GRAM STAIN SMEAR Final 07/02/11- 1438 ML POLYS MODERATE SMEAR: FEW GRAM NEGATIVE BACILLI ML - [facility] State Permit #[id number] [address] [place] [address] DEPARTMENT OF PATHOLOGY, [address] [place] [address] [facility] Permit #[id number] Dayday Arreguin M.D. Director Alexis Farr M.D. Forge Operator 7 RUN DATE: 07/19/11 [facility] NMI LIVE PAGE 1 RUN TIME: 807 Specimen Inquiry RUN USER: INTERFACE Name: KINA LO Status: REG REF Re07/02/11 Age/Sex: 70/F Unit#: [id number] Location: [facility] : 39 SPEC #: [id number] JAZZMINE: 07/02/11 STATUS: COMP REQ #: [id number] RECD: 07/02/[address]: Leonor Alexander NP SOURCE: MISC ENTR: 07/02/[address]: GEORGE: TONGUE ORDERED: FUNGAL CULT OT COMMENTS: DO SENSATIVITIES IF INDICATED QUERIES: MEDENT REQUISITION # [id number] ACT WKST: 07/19/11 #1 Procedure Result Verified Site > FUNGAL CULT OTHER SOURCES Final 07/19/11- 807 ML Organism 1 MADHAVI ALBICANS ML - [facility] State Permit #[id number] [address] [place] [address] DEPARTMENT OF PATHOLOGY, [address] [place] [address] [facility] Permit #[id number] Dayday Arreguin M.D. Director Alexis Farr M.D. Forge Operator Procedures Date Code Description Status 11/07/2018 19920 Fiberoptic Laryngoscopy Completed 04/08/2016 28579 Fiberoptic Laryngoscopy Completed 07/02/2011 44057 Nasal Endoscopy, Diagnostic Completed 01/09/2008 82290 Fiberoptic Laryngoscopy Completed 08/15/2006 71167 Nasal Endoscopy, Diagnostic Completed Encounters Type Date Location Provider Dx Diagnosis Office Visit 04/27/2016 [place] John Batista H92.01 Otalgia, right ear 10:00a 07/11/07 MD Emelia R07.0 Pain in throat R51 Headache Office Visit 04/08/2016 3:00p [place],After 07/11/07 John Batista H92.01 Otalgia, right MD Emelia ear H92.01 Otalgia, right ear R07.0 Pain in throat R07.0 Pain in throat Office 09/01/2012 [place],After John Batista 528.00 Stomatitis And Visit 10:15a 07/11/07 MD Emelia Mucositis,Unspecified Office 12/03/2011 [place],After Benjamin, 527.2 Sialoadenitis/Parotitis Visit 9:45a 07/11/07 Leonor [employer] Office 11/11/2011 [place],After John Batista 529.6-1 Tongue Pain Visit 2:15p 07/11/07 MD Emelia Office 10/13/2011 [place],After Benjamin 529.6-1 Tongue Pain Visit 11:30a 07/11/07 Leonor [employer] Office 08/23/2011 [place],After Benjamin 529.6-1 Tongue Pain Visit 2:00p 07/11/07 Leonor [employer] 477.9 Rhinitis, Allergic Office Visit 07/23/2011 2:30p [place],After 07/11/07 Benjamin, 112.0 Thrush, Oral Leonor [employer] Or Mouth Office Visit 07/02/2011 10:30a [place],After 07/11/07 Benjamin, 462-2 Sore Throat Leonor [employer] 529.6-1 Tongue Pain 461.0 Sinusitis, Acute Maxillary Office Visit 05/31/2011 11:15a [place],After 07/11/07 Jose Miguel Christy 112.0 Thrush , Romario Mejía M.D. Or Mouth Office Visit 09/03/2010 11:00a [place],After 07/11/07 John Batista 784.1 Pain Of MD Emelia Throat 401.9 High Blood Pressure Or Hypertension/Unspecified Office Visit 05/20/2010 2:45p [place],After 07/11/07 John Batista 784.1 Pain Of MD Emelia Throat 401.9 High Blood Pressure Or Hypertension/Unspecified Office 03/26/2010 [place],After John Batista 784.2 Mass/Swelling/Lump In Visit 2:15p 07/11/07 MD Emelia Head And Neck 527.2 Sialoadenitis/Parotitis 401.9 High Blood Pressure Or Hypertension/Unspecified Office 01/09/2008 [place],After Khadijah 787.24 Dysphagia, Visit 11:15a 07/11/07 Desmond BLANCO Pharyngoesophageal Phase 682.9 Cellulitis Or Abscess/Unspecified Site 524.60 Temporomandibular Joint Disorders Unspec 401.9 High Blood Pressure Or Hypertension/Unspecified Office Visit 07/19/2007 4:15p [place],After 07/11/07 John Batista 388.71 Otalgia MD Emelia Otogenic Pain 381.81 Dysfunction Of Eustachian Tube 401.9 High Blood Pressure Or Hypertension/Unspecified Office Visit 10/27/2006 [place],After John Batista 375.22 Epiphora Due To 3:30p 07/11/07 MD Emelia Insufficient Drainage 401.9 High Blood Pressure Or Hypertension/Unspecified Office Visit 10/05/2005 [place],After Jose Miguel Christy 780.57 Apnea, Sleep Not 9:00a 07/11/07 Miguel Ángel Mejía Elsewhere Classified /Unspecified 401.9 High Blood Pressure Or Hypertension/Unspecified 478.1-4 Obstruction Of Nasal Airway Office Visit 05/11/2005 [place],After Jose Miguel Christy 780.57 Apnea, Sleep Not 11:30a 07/11/07 Miguel Ángel Mejía Elsewhere Classified /Unspecified 401.9 High Blood Pressure Or Hypertension/Unspecified Office 03/16/2005 [place],After Jose Miguel Christy 401.9 High Blood Pressure Or Visit 9:15a 07/11/07 Keila Mejía/Franky Del Rosario 780.57 Apnea, Sleep Not Elsewhere Classified /Unspecified 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 She is home now. She keeps it plugged during the day but op[ens it at night because she has a humidifier running. She hs not having any difficulty breathing with it closed. Her nasolaryngoscopy and her bronchoscopy, after removing the tube, today were normal. I taped the stoma closed and she has not had any breathing problems.She should put pressure on the dressing when she talks to help promote healing. She should change the dressing once per day until closed. Then she does not need it any . It may take a month to close up. If it does not then it can be closed surgicallyShe inquired about eating. Tracheostomies increasethe risk of aspiration, so her risk should be lower now. .H65.21 Chronic serous otitis media, right earComments:The patient has a tube in the right ear that was placed by Dr. Cooper. She as the patient has a choice of where she goes but did not realize that when she was referred there.
--- NOTE | 2018-11-12 08:49 | ED ---
Shortness of Breath - HPI Summary HPI Summary: The patient is a 78 y/o F presenting to [facility] arriving by ambulance with a chief complaint of sudden onset SOB while waking up this morning but has since resolved. She had been on high-flow O2 when EMS arrived, and in the ambulance she was on 2L of O2, and her O2 Sat% was normal. Per EMS, she also has a ventricular paced HR and had a slightly hypertensive BP in the 140s/80s, but vitals were otherwise normal. She states that sitting upright from a recumbent position alleviated her symptoms, and the O2 in the ambulance also helped. She additionally c/o nonproductive cough. She denies fever, chills, and CP. She has recent hx of aspiration PNA in July 2018, for which she was intubated and had tracheostomy and PEG tubes placed. The PEG and trach tubes were removed a few weeks ago. She also has hx of pacer placement with two replacements since initial. No hx of CHF, COPD, VT, or blood clots. She is currently on Coumadin for elevated INR per PCP. She was recently at Dr. Frazier's office, cardiology, with a normal exam. - History of Current Complaint Hx Obtained From: Patient, EMS Onset/Duration: Sudden Onset - with waking up this morning, Lasting Minutes, Resolved Current Severity: None Dyspnea At: Rest Aggrevating Factors: Nothing Alleviating Factors: Oxygen - 2L in ambulance, Upright Position Associated Signs & Symptoms: Cough (Nonproductive) - Allergy/Home Medications Allergies/Adverse Reactions: Allergies Allergy/AdvReac Type Severity Reaction Status Date / Time adhesive tape Allergy Rash Verified 11/12/18 08:39 Beta-Blockers Allergy Unknown Verified 11/12/18 08:39 (Beta-Adrenergic Bloc Reaction Details erythromycin base Allergy Unknown Verified 11/12/18 08:39 Reaction Details lidocaine [From Lidoderm] Allergy Unknown Verified 11/12/18 08:39 Reaction Details meperidine [From Demerol] Allergy Unknown Verified 11/12/18 08:39 Reaction Details nortriptyline Allergy Unknown Verified 11/12/18 08:39 Reaction Details NSAIDS (Non-Steroidal Allergy See Comment Verified 11/12/18 08:39 Anti-Inflamma oxycodone Allergy Altered Verified 11/12/18 08:39 Mental Status Penicillins Allergy Rash Verified 11/12/18 08:39 propoxyphene [From Darvon] Allergy Unknown Verified 11/12/18 08:39 Reaction Details Sulfa (Sulfonamide Allergy Rash Verified 11/12/18 08:39 Antibiotics) tetanus toxoid, adsorbed Allergy Unknown Verified 11/12/18 08:39 Reaction Details hydrocodone AdvReac Altered Verified 11/12/18 08:39 Mental Status Home Medications: Home Medications Furosemide TAB* [Lasix TAB*] 20 mg PO DAILY 11/12/18 [History Confirmed 11/12/18 ] PMH/Surg Hx/FS Hx/Imm Hx Endocrine/Hematology History: Reports: Hx Anticoagulant Therapy, Hx Diabetes - diet controlled, Hx Thyroid Disease - hypo Comment Only: Other Endocrine/Hematological Disorders - Thyroid CA, Thyroidectomy Cardiovascular History: Reports: Hx Atrial Fibrillation, Hx Auto Implanted Cardiovert Defib, Hx Hypercholesterolemia, Hx Hypertension, Hx Pacemaker/ICD - 3 , Other Cardiovascular Problems/Disorders - afib Denies: Hx Aneurysm - AAA Respiratory History: Reports: Hx Pneumonia - aspiration Denies: Hx Asthma, Hx Chronic Obstructive Pulmonary Disease (COPD) GI History: Reports: Hx Gastroesophageal Reflux Disease Denies: Hx Ulcer History: Reports: Hx Renal Disease, Other Problems/Disorders - GERD Musculoskeletal History: Reports: Other Musculoskeletal History - Right Shoulder Pain Denies: Hx Osteoporosis Sensory History: Reports: Hx Contacts or Glasses Denies: Hx Hearing Aid Opthamlomology History: Reports: Hx Contacts or Glasses Psychiatric History: Reports: Hx Depression - Cancer History Cancer Type, Location and Year: thyroid CA Hx Chemotherapy: No Hx Radiation Therapy: No - Surgical History Surgery Procedure, Year, and Place: PACEMAKER-1997/; HYSTERECTOMY; TURMOR REMOVED RIGHT FEMUR; RIGHT PARTIAL SHOULDER REPLACEMENT. THYROID RESECTION Infectious Disease History: Reports: Hx Clostridium Difficile, Hx Shingles - Buttocks Denies: Hx Hepatitis, Hx Human Immunodeficiency Virus (HIV) - Family History Known Family History: Positive: Other - negative breast CA Negative: Diabetes Family History: No FHx of breast CA - Social History Alcohol Use: Rare Hx Substance Use: No Substance Use Type: Reports: None Hx Tobacco Use: No Smoking Status (MU): Never Smoked Tobacco Do You Chew or Dip Tobacco: No Have You Chewed or Dipped Tobacco in the LAST YEAR: No Have You Smoked in the Last Year: No Review of Systems Negative: Fever, Chills Negative: Chest Pain Positive: Shortness Of Breath, Cough - non-productive All Other Systems Reviewed And Are Negative: Yes Physical Exam - Summary Physical Exam Summary: GENERAL: Patient is a well-developed and nourished female who is lying comfortable in the stretcher. Patient is not in any acute respiratory distress. HEAD AND FACE: Normocephalic EYES: PERRLA, EOMI x 2. EARS: Hearing grossly intact. MOUTH: Oropharynx within normal limits. NECK: Supple, trachea is midline, no adenopathy, no JVD, no carotid bruit. CHEST: Symmetric, no tenderness at palpation LUNGS: Rhonchi on the right side but otherwise clear to auscultation. No wheezing or crackles. CVS: Regular rate and rhythm, S1 and S2 present, no murmurs or gallops appreciated. ABDOMEN: Soft, non-tender. Bowel sounds are normal. No abdominal abnormal pulsations. EXTREMITIES: Full ROM in all major joints, no edema, no cyanosis or clubbing. NEURO: Alert and oriented x 3. No acute neurological deficits. Speech is normal and follows commands. SKIN: Dry and warm Triage Information Reviewed: Yes Vital Signs Reviewed: Yes Diagnostics - Laboratory Result Diagrams: 11/12/18 08:48 11/12/18 08:48 Lab Statement: Any lab studies that have been ordered have been reviewed, and results considered in the medical decision making process. - Radiology CXR Radiology Interpretation Completed By: Radiologist Summary of Radiographic Findings: No radiographic evidence of acute cardiopulmonary disease. ED physician has reviewed this report. - EKG 0849 Cardiac Rate: NL - 81 BPM EKG Rhythm: Atrial Fibrillation - Ventricular paced EKG Comparison: No Significant Change - Similar to EKG taken on 07/22/2018. Summary of EKG Findings: Ventricular-paced rhythm. No ST elevations. Re-Evaluation - Re-Evaluation First Eval Re-Evaluation Time: 09:45 Change: Improved Comment: Patient states she will provide a UA. Course/Dx - Course Course Of Treatment: The patient is a 78 y/o F with a chief complaint of sudden onset SOB while waking up this morning with resolution after sitting upright from recumbent position and O2 at home and in the ambulance. Upon physical exam , the patient exhibits rhonchi in the right side but is otherwise normal. In the ED course, blood work reveals Hgb of 11.2, RDW of 16, INR of 2.35, BUN/ creatinine of 20.6, and BNP of 292. UA reveals positive blood, RBC, and squamous epithelial. EKG shows ventricular paced rhythm. CXR reveals no acute process. Based on lab and imaging results, the patient is diagnosed with bronchitis. She will be discharged home with prescription for Doxycycline. I discussed results with patient, and she reports feeling better. She is hemodynamically stable and safe for discharge. Strict return precautions given and she will otherwise follow up with her PCP. She agrees with this plan and understands the need for return to the ED for any new or worsening symptoms. - Diagnoses Provider Diagnoses: Bronchitis Discharge - Sign-Out/Discharge Documenting (check all that apply): Patient Departure - Patient will be discharged home. Patient Received Moderate/Deep Sedation with Procedure: No - Discharge Plan Condition: Stable Disposition: HOME Prescriptions: DOXYcycline CAP(*) [DOXYcycline 100MG CAP(*)] 100 mg PO BID #14 cap Patient Education Materials: Acute Bronchitis (ED) Referrals: Jojo Clark MD [Primary Care Provider] - 3 Days Additional Instructions: Please take medication as prescribed. Follow up with your primary care physician in 1-3 days. RETURN TO THE EMERGENCY DEPARTMENT FOR CHANGING OR WORSENING SYMPTOMS. - Billing Disposition and Condition Condition: STABLE Disposition: Home - Attestation Statements Document Initiated by Ambroseibe: Yes Documenting Scribe: Ana Nickerson Provider For Whom Rima is Documenting (Include Credential): Dr. Savita Galan MD Scribe Attestation: Ana Burleson, scribed for Dr. Savita Galan MD on 11/13/18 at 1248. Scribe Documentation Reviewed: Yes Provider Attestation: The documentation as recorded by the Ana velazquez accurately reflects the service I personally performed and the decisions made by me, Dr. Savita Galan MD Status of Scribe Document: Viewed
[2018-11-12 09:26] LABS: ABS Basophils 0.1 10^3/ul (0-0.2); ABS Eosinophils 0.1 10^3/ul (0-0.6); ABS Monocytes 0.8 10^3/ul (0-0.8); ABS Neutrophils 3.5 10^3/ul (1.5-7.7); Eosinophil % 1.8 %; Hematocrit 35 % (35-47); Hemoglobin 11.2 g/dL (12.0-16.0); Mean Corpuscular HGB Conc 32 g/dL (31-36); Mean Corpuscular Hemoglobin 27 pg (27-31); Mean Corpuscular Volume 83 fL (80-97); Mean Platelet Volume 8.7 fL (7.4-10.4); Platelet Count 230 10^3/uL (150-450); Red Blood Count 4.24 10^6 /uL (3.70-4.87); Red Cell Distribution Width 16 % (10.5-15); White Blood Count 6.5 10^3/uL (3.5-10.8)
[2018-11-12 09:37] LABS: Activated Partial Thrombo Time 30.4 seconds (26.0-36.3); INR 2.35 (0.82-1.09)
[2018-11-12 09:41] LABS: Albumin 3.7 g/dL (3.2-5.2); Albumin/Globulin Ratio 1.1 (1-3); BUN/Creatinine Ratio 20.6 (8-20); Calcium 9.4 mg/dL (8.6-10.3); EGFR African American 110.3 (>60); EGFR Non-African American 91.2 (>60); Globulin 3.3 g/dL (2-4); Potassium 3.7 mmol/L (3.5-5.0); Total Bilirubin 0.5 mg/dL (0.2-1.0)
[2018-11-12 09:43] LABS: Troponin I 0.02 ng/mL (<0.04)
[2018-11-12 10:37] VITALS: BP 141/78
[2018-11-12 10:38] LABS: Urine Appearance Cloudy; Urine Bacteria Absent (Absent); Urine Bilirubin Negative (Negative); Urine Blood 1+ (Negative); Urine Color Yellow; Urine Glucose Negative (Negative); Urine Ketones Negative (Negative); Urine Nitrite Negative (Negative); Urine Protein Negative (Negative); Urine Red Blood Cell 1+(3-5/hpf) (Absent); Urine Squamous Epithelial Cell Present (Absent); Urine Urobilinogen Negative (Negative); Urine White Blood Cell Trace(0-5/hpf) (Absent)
== END 2018-11-12 11:02 | disposition home or self-care (01) ==
LOC: ED 08:29
DX: J40 Bronchitis, not specified as acute or chronic (principal); R06.02 Shortness of breath; Z79.01 Long term (current) use of anticoagulants; E11.9 Type 2 diabetes mellitus without complications; Z88.0 Allergy status to penicillin; Z88.2 Allergy status to sulfonamides; Z95.0 Presence of cardiac pacemaker; I48.91 Unspecified atrial fibrillation; I10 Essential (primary) hypertension; K21.9 Gastro-esophageal reflux disease without esophagitis; Z85.850 Personal history of malignant neoplasm of thyroid
CPT/HCPCS: 36415; 71046; 80053; 81003; 81015; 83605; 83735; 83880; 84484; 85025; 85379; 85610; 85730; 87086; 93005; 99283

== ENCOUNTER 2019-01-30 17:05 | Emergency (ER) | payer MEDICARE ==
--- OUTSIDE RECORDS SUMMARY | 2019-01-30 17:12 | XMS REPORT | Continuity of Care Document ---
:1940 External Reference #:[id number] Author Name Jose Miguel Mejía M.D. Address [address] [place] [address] Care Team Providers Name Role Phone Jojo Clark M.D. Primary Care Physician Unavailable Payers Date Identification Numbers Payment Provider Subscriber Policy Number: [id number] [employer] [employer] Kina L Ryan PayID: [id number] [address] [place] [address] Policy Number: [id number] [facility] Kina Ramirez Ryan PayID: [id number] [address] [place] [address] Problems Active Problems Provider Date Essential hypertension [...] Never Smoked A Pipe Smoking Status Reviewed: 01/29/19 Never Smoked A Pipe Smokeless Tobacco Never [...] Medications Active Medications SIG Qnty Indications Ordering Date Provider Ipratropium Rusk 2 sprays in each 45units J31.0 Jose Miguel Christy 11/15/2018 0.06% nostril 4 times Miguel Ángel Mejía Solution a day as needed for rhinitis Gabapentin take 1 capsule Unknown 300mg Capsules by mouth 1 time per day for 1 week then 2 times per day for one week, then 3 times per day as tolerated. Atorvastatin Calcium Take 1 Tablet By Unknown 40mg Mouth AT Bedtime Tablets Levothyroxine Sodium Take 1 Tablet By Unknown Mouth Every Day 137mcg Tablets Hydrocodone-Acetaminop Take 1 Tablet By Unknown hen Mouth Every 12 5-325mg Tablets Hours as Needed For Pain - Maximum Daily Dose Of 2 Per Day Doxycycline Hyclate Take 1 Capsule Unknown 100mg By Mouth Two Capsules Times Daily Cranberry daily Unknown 425mg Capsules Vitamin D3 daily Unknown 1000Unit Capsules Pantoprazole Sodium daily Unknown 20mg Tablets Amlodipine Besylate daily Unknown 2.5mg Tablets Potassium Chloride daily Unknown Dee ER 10Meq Tablets ER Furosemide daily Unknown 40mg Tablets Prinivil daily Unknown 10mg Tablets Levothyroxine Sodium Yair Cooper 150mcg Tablets Escitalopram Oxalate Take 1 Tablet By Unknown 10mg Mouth Every Day Tablets Duloxetine HCL Unknown 20mg Caps Part Tramadol HCL Take 1 Tablet By Unknown 50mg Tablets Mouth Three Times Daily as Needed -- Maximum Daily Dose Of 3 Perday Warfarin Sodium Unknown 4mg Tablets Atenolol Unknown 25mg Tablets History Medications No Active Medications Unknown 04/07/2016 [...] 1pint 529.6-1 Jose Miguel Christy 07/02/2011 - [id number]/ML 2 ml 4 times per Miguel Ángel Mejía 07/23/2011 Suspension day Mycelex Trouches 1 per mouth 5 70units 112.0 Jose Miguel Christy 05/31/2011 - 10mg times per day Miguel Ángel Mejía 07/02/2011 Trouches Clindamycin HCL 1 Tab By Mouth 4 40caps John Batista 07/19/2007 - 150mg Times A Day For [...] D as directed Cotton, - (Cholecalciferol) Jojo Del Rosario 04/08/2016 1000Unit Capsules Multivitamins 1 by mouth every Cotton, - Capsules day Jojo Del Rosario 04/08/2016 Atenolol 1 by mouth every Cotton, - 25mg Tablets day Jojo M.D. 04/08/2016 Omeprazole As directed Cotton, - Jojo M.D. 04/08/2016 Omeprazole 1 tab by mouth 30 Cotton, - 20mg min before Jojo M.D. 11/07/[address] breakfast and dinner Atenolol 1 by mouth twice Cotton, - 50mg Tablets daily Jojo M.D. 11/07/2018 Multivitamins 1 by mouth every Self [...] Triamcinolone as directed Cotton, - Acetonide Jojo M.DKaryn 11/07/2018 0.025% Ointment Lidoderm one patch in [facility] - 5% Patches am/off in at [facility] 11/07/2018 night Calcium 500 + D 1 by mouth twice Cotton, - a day Jojo M.D. 11/07/2018 [id number] Tablets Fish Oil as directed Cotton, - 500mg Capsules Jojo M.D. 11/07/2018 Co Q-10 1 by mouth every Cotton, - 50mg Capsules day Jojo M.DKaryn 11/07/2018 Coumadin 1 tabs by mouth Cotton, [...] Unknown - 05/31/2011 Lipitor Unknown - 07/23/2011 Vital Signs Date Vital Result Comment 01/29/2019 3:46pm Weight 149.00 lb Weight 67.586 kg Height 64 inches 5'4" Height in cm's 162.6 cm BMI (Body Mass Index) 25.6 kg/m2 12/12/2018 2:52pm Weight 152.00 lb Weight 68.947 kg Height 64 inches 5'4" Height in cm's 162.6 cm BMI (Body Mass Index) 26.1 kg/m2 11/15/2018 3:36pm Weight 152.00 lb Weight 68.947 kg Height 64 inches 5'4" Height in cm's 162.6 cm BMI (Body Mass Index) 26.1 kg/m2 11/07/2018 2:58pm Weight 152.00 lb Weight 68.947 [...] Result H/L Range Note Laboratory test 10/14/2011 [facility] Vitamin B12 798 pg/mL 180-914 finding c/o Department [place] [address] [phone] Iron & Iron 10/14/2011 [facility] Iron Total 51 g/ dL 28-170 Binding Capacity c/o Department [place] [address] [phone] Unsaturated Iron Binding 327 g/dL Total Iron Binding Capacity 378 g/dL 250-450 % Iron Saturation 13 % Low 15-55 Laboratory test 10/14/2011 [facility] Zinc 0.79 g/ mL 0.66-1.10 1 finding c/o Department [place] [address] [phone] Vitamin B6 21 g/L 5-50 2 Vitamin B1 Whole Blood 134 nmol/L 80-150 3 Laboratory test 08/26/2011 [facility] Shana Neville ( SEE NOTE) 4, 5 finding c/o Department [place] [address] [phone] Laboratory test 07/02/2011 [facility] Fungal Cult < pending> finding c/o Department of Laboratories [place] [address] [phone] Laboratory test 07/02/2011 [facility] Culture -------- ---- 6 finding c/o Department of Laboratories Sensitivity/Gr ---- <[place] [address] NOTE> [phone] Fungal Cult Other Sources <SEE NOTE> 7 Laboratory test finding 03/22/2005 [facility] BUN normal c/o Department [place] [address] [phone] Creatinine normal B12 high 1 Test Performed by: [facility] Dpt of Lab Med and Pathology [address] [place] [address] Highway Maintainer: Ángel Roach III, M.D. 2 Test Performed by: [place] [address] Highway Maintainer: Viky Cuello, Ph.D. 3 High-Performance Liquid Chromatography (HPLC) with fluorescence detection Test Performed by: [facility] Dpt of Lab Med and Pathology [address] [place] [address] Highway Maintainer: Ángel Roach III, M.D. 4 [phone] TEST RESULT RETURNED FROM REFERENCE LABORATORY. HARDCOPY REPORT TO BE SENT TO PHYSICIAN(S) OFFICE. 6 RUN DATE: 07/06/11 [facility] NMI LIVE PAGE 1 RUN TIME: 0900 Specimen Inquiry RUN USER: INTERFACE Name: KINA DAVIS Status: REG REF Re07/02/11 Age/Sex: 70/F Unit#: [id number] Location: [facility] : 39 SPEC #: [id number] JAZZMINE: 07/02/11-1110 STATUS: COMP REQ #: [id number] RECD: 07/02/[address]: Leonor Alexander NP SOURCE: MISC ENTR: 07/02/11-[address]: SPDESC: SINUS,LMAX ORDERED: CULT SENS/GS QUERIES: MEDENT REQUISITION # [id number] ACT WKST: B 07/06/11 #1 Procedure Result Verified Site > CULTURE SENSITIVITY Final 07/06/11- 0900 ML FINAL: NO GROWTH DAY 4 > GRAM STAIN SMEAR Final 07/02/11- 1438 ML POLYS MODERATE SMEAR: FEW GRAM NEGATIVE BACILLI ML - [facility] Permit #[id number] [address] [place] [address] DEPARTMENT OF PATHOLOGY, [address] [place] [address] [facility] Permit #[id number] Miguel Ángel Munoz M.D. Wireless Sales Expert 7 RUN DATE: 07/19/11 [facility] NMI LIVE PAGE 1 RUN TIME: 807 Specimen Inquiry RUN USER: INTERFACE Name: KINA DAVIS Status: REG REF Re07/02/11 Age/Sex: 70/F Unit#: [id number] Location: [facility] : 39 SPEC #: [id number] JAZZMINE: 07/02/11-1110 STATUS: COMP REQ #: [id number] RECD: 07/02/[address] [facility] [address]: Leonor Alexander NP SOURCE: MISC ENTR: 07/02/[address]: GEORGE: TONGUE ORDERED: FUNGAL CULT OT COMMENTS: DO SENSATIVITIES IF INDICATED QUERIES: MEDENT REQUISITION # [id number] ACT WKST: 07/19/11 #1 Procedure Result Verified Site > FUNGAL CULT OTHER SOURCES Final 07/19/11807 ML Organism 1 MADHAVI [facility]BIC[facility] - [facility] Permit #[id number] [address] [place] [address] DEPARTMENT OF PATHOLOGY, [address] [place] [address] [facility] Permit #[id number] Miguel Ángel Munoz M.D. Wireless Sales Expert Procedures Date Code Description Status 11/07/2018 63732 Fiberoptic Laryngoscopy Completed 04/08/2016 18083 Fiberoptic Laryngoscopy Completed 07/02/2011 34180 Nasal Endoscopy, Diagnostic Completed 01/09/2008 40250 Fiberoptic Laryngoscopy Completed 08/15/2006 74319 Nasal Endoscopy, Diagnostic Completed Encounters Type Date Location Provider Dx Diagnosis Office Visit 01/29/2019 Ponder,After 07/11/07 Jose Miguel Christy M54.2 Cervicalgia 3:45p Miguel Ángel Mejía H92.01 Otalgia, right ear H65.21 Chronic serous otitis media, right ear Office Visit 12/12/2018 2:45p Ponder,After 07/11/07 Grace Lewis R09.81 Nasal congestion MARIE Brown J31.0 Chronic rhinitis Z43.0 Encounter for attention to tracheostomy Office Visit 11/15/2018 Ponder,After Jose Miguel Christy R09.81 Nasal 3:30p 07/11/07 Miguel Ángel Mejía congestion J31.0 Chronic rhinitis Z43.0 Encounter for attention to tracheostomy Office Visit 04/27/2016 10:00a Ponder,After 07/11/07 John Batista H92.01 Otalgia, right MD Emelia ear R07.0 Pain in throat R51 Headache Office Visit 04/08/2016 3:00p Ponder,After 07/11/07 John Batista H92.01 Otalgia, right MD Emelia ear H92.01 Otalgia, right ear R07.0 Pain in throat R07.0 Pain in throat Office 09/01/2012 Ponder,After John Batista 528.00 Stomatitis And Visit 10:15a 07/11/07 MD Emelia Mucositis,Unspecified Office 12/03/2011 Ponder,After Benjamin 527.2 Sialoadenitis/Parotitis Visit 9:45a 07/11/07 Leonor [facility] Office 11/11/2011 Ponder,After John Batista 529.6-1 Tongue Pain Visit 2:15p 07/11/07 MD Emelia Office 10/13/2011 Ponder,After Benjamin 529.6-1 Tongue Pain Visit 11:30a 07/11/07 Leonor [facility] Office 08/23/2011 Ponder,After Benjamin 529.6-1 Tongue Pain Visit 2:00p 07/11/07 Leonor [facility] 477.9 Rhinitis, Allergic Office Visit 07/23/2011 2:30p Ponder,After 07/11/07 Benjamin, 112.0 Thrush, Oral Leonor [facility] Or Mouth Office Visit 07/02/2011 10:30a Ponder,After 07/11/07 Benjamin 462-2 Sore Throat Leonor [facility] 529.6-1 Tongue Pain 461.0 Sinusitis, Acute Maxillary Office Visit 05/31/2011 11:15a Ponder,After 07/11/07 Jose Miguel Christy 112.0 Thrush , Oral Miguel Ángel Mejía Or Mouth Office Visit 09/03/2010 11:00a Ponder,After 07/11/07 John Batista 784.1 Pain Of MD Emelia Throat 401.9 High Blood Pressure Or Hypertension/Unspecified Office Visit 05/20/2010 2:45p Ponder,After 07/11/07 John Batista 784.1 Pain Of MD Emelia Throat 401.9 High Blood Pressure Or Hypertension/Unspecified Office 03/26/2010 Ponder,After John Batista 784.2 Mass/Swelling/Lump In Visit 2:15p 07/11/07 MD Emelia Head And Neck 527.2 Sialoadenitis/Parotitis 401.9 High Blood Pressure Or Hypertension/Unspecified Office 01/09/2008 Ponder,After Khadijah 787.24 Dysphagia, Visit 11:15a 07/11/07 Desmond BLANCO Pharyngoesophageal Phase 682.9 Cellulitis Or Abscess/Unspecified Site 524.60 Temporomandibular Joint Disorders Unspec 401.9 High Blood Pressure Or Hypertension/Unspecified Office Visit 07/19/2007 4:15p Ponder,After 07/11/07 John Batista 388.71 Otalgia MD Emelia Otogenic Pain 381.81 Dysfunction Of Eustachian Tube 401.9 High Blood Pressure Or Hypertension/Unspecified Office Visit 10/27/2006 Ponder,After John Batista 375.22 Epiphora Due To 3:30p 07/11/07 MD Emelia Insufficient Drainage 401.9 High Blood Pressure Or Hypertension/Unspecified Office Visit 10/05/2005 Ponder,After Jose Miguel Christy 780.57 Apnea, Sleep Not 9:00a 07/11/07 Miguel Ángel Mejía Elsewhere Classified /Unspecified 401.9 High Blood Pressure Or Hypertension/Unspecified 478.1-4 Obstruction Of Nasal Airway Office Visit 05/11/2005 Ponder,After Jose Miguel Christy 780.57 Apnea, Sleep Not 11:30a 07/11/07 Miguel Ángel Mejía Elsewhere Classified /Unspecified 401.9 High Blood Pressure Or Hypertension/Unspecified Office 03/16/2005 Ponder,After Jose Miguel Christy 401.9 High Blood Pressure Or Visit 9:15a 07/11/07 Keila Mejía/Franky Del Rosario 780.57 Apnea, Sleep Not Elsewhere Classified /Unspecified 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 Her stoma is well healed. She has a right myringotomy tube in place. I don't think this is the cause of the ear pain but it could be. Her nasolaryngoscopy is normal. She has some tenderness along the right cervical spine. This is the most likely cause of the intermittent pain. The tube could be removed to see if this helps, but I am unsure it will. She wanted this done.H92.01 Otalgia, right earH65.21 Chronic serous otitis media, right earComments:I removed the tube to see if this would help with the pain.Follow up:FU 1 month for an ear check
--- OUTSIDE RECORDS SUMMARY | 2019-01-30 17:14 | XMS REPORT | Continuity of Care Document ---
:1940 External Reference #:[id number] Author Name Gisele Marcano Care Team Providers Name Role Phone Jojo Clark M.D. 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 Primary Care Physician Unavailable Payers Date Identification Numbers Payment Provider Subscriber Policy Number: [id number] Medicare Kina Davis PayID: [id number] [address] [place] [address] Policy Number: [id number] [facility] Kina Davis PayID: [id number] [address] [place] [address] Family History Date Family Member(s) Observation Comments Father Cancer Father due to Cancer () Father 85 Mother Diabetes Mother due to Diabetes () Mother 74 Social History Type Date Description Comments Sex Unknown Tobacco Use Start: Unknown Never Smoked Cigarettes ETOH Use Rare Use Of Alcohol Recreational Drug Use Never Used Drugs Allergies, Adverse Reactions, Alerts Active Allergies Reaction Severity Comments Date Penicillin Urticaria Moderate 01/13/2018 Tape Urticaria Moderate 01/13/2018 Lidoderm Urticaria Moderate 01/13/2018 sulfa Nausea and Vomiting Moderate 01/13/2018 Erythromycin Nausea and Vomiting Moderate 01/13/2018 Demerol rapid heartbeat and hallucinas Moderate 01/13/2018 NSAIDs kidney disease Moderate 01/13/2018 Acetaminophen / Oxycodone Nausea and Vomiting Moderate 01/13/2018 Medications Active Medications SIG Qnty Indications Ordering Date Provider Levothyroxine Sodium everyday 30tabs Yair Cooper, 03/09/2018 Miguel Ángel 150mcg Tablets Atenolol 1 by mouth bid Unknown 25mg Tablets Atorvastatin Calcium 1 by mouth every Unknown 80mg day Tablets Coumadin take one tablet Unknown 5mg Tablets by mouth or every day as directed Omeprazole 1 by mouth every Unknown 20mg Capsules day DR Escitalopram Oxalate 1 a day Unknown 10mg Tablets Systane Unknown 0.4-0.3% Gel Valacyclovir HCL one tab twice Unknown 500mg daily for 3 days Tablets Vitamin D Unknown (Cholecalciferol) Capsules History Medications Doxycycline Hyclate one tab twice 20tabs Yair Cooper, 01/03/2019 - 100mg daily 10 days M.D. 01/18/2019 Tablets Fluocinolone Acetonide 5 drops as needed 1units Yair Cooper, 12/29/2018 - Ear Drops in the affected M.D. 01/18/2019 0.01% Oil ear twice a day. Levaquin 1 by mouth every 5tabs Yair Cooper, 03/29/2018 - 500mg Tablets day M.D. 04/19/2018 Ciprodex 5 drops twice a 1bottle Yair Cooper, 03/29/2018 - 0.3-0.1% day x 10 days M.D. 04/19/2018 Suspension right ear Calcitriol 1 by mouth twice 60caps Yair Cooper, 03/09/2018 - 0.5mcg Capsules a day M.D. 04/19/2018 Tramadol HCL 1-2. tab q4h. for 20tabs Yair Cooper, 03/09/2018 - 50mg Tablets pain M.D. 04/19/2018 Levothyroxine Sodium 1 by mouth every Unknown - 100mcg day 03/09/2018 Tablets Vital Signs Date Vital Result Comment 01/19/2019 12:53pm Weight 144.00 lb Height 61 inches 5'1" BMI (Body Mass Index) 27.2 kg/m2 BP Systolic 132 mmHg BP Diastolic 83 mmHg Heart Rate 83 /min O2 % BldC Oximetry 98 % Body Temperature 98.2 F Pain Level 0 12/29/2018 12:22pm Weight 164.00 lb Height 61 inches 5'1" BMI (Body Mass Index) 31.0 kg/m2 BP Systolic 138 mmHg BP Diastolic 85 mmHg Heart Rate 75 /min O2 % BldC Oximetry 98 % Body Temperature 96.7 F Pain Level 5 04/19/2018 2:01pm Weight 164.00 lb Height 61 inches 5'1" BMI (Body Mass Index) 31.0 kg/m2 BP Systolic 138 mmHg BP Diastolic 79 mmHg Heart Rate 87 /min O2 % BldC Oximetry 97 % Body Temperature 97.9 F Pain Level 0 03/29/2018 8:41am Weight 163.00 lb Height 61 inches 5'1" BMI (Body Mass Index) 30.8 kg/m2 BP Systolic 133 mmHg BP Diastolic 87 mmHg Heart Rate 90 /min O2 % BldC Oximetry 98 % Body Temperature 96.2 F Pain Level 7 03/17/2018 12:54pm Weight 167.00 lb Height 61 inches 5'1" BMI (Body Mass Index) 31.6 kg/m2 BP Systolic 125 mmHg BP Diastolic 80 mmHg Heart Rate 85 /min O2 % BldC Oximetry 93 % Body Temperature 98.0 F Pain Level 5 01/31/2018 9:47am Weight 168.00 lb Height 61 inches 5'1" BMI (Body Mass Index) 31.7 kg/m2 Heart Rate 90 /min O2 % BldC Oximetry 96 % Body Temperature 97.1 F Pain Level 0 01/27/2018 11:34am Weight 168.00 lb Height 61 inches 5'1" BMI (Body Mass Index) 31.7 kg/m2 BP Systolic 108 mmHg BP Diastolic 78 mmHg Heart Rate 91 /min O2 % BldC Oximetry 93 % Body Temperature 98.0 F Pain Level 0 01/13/2018 1:31pm Weight 171.00 lb Height 61 inches 5'1" BMI (Body Mass Index) 32.3 kg/m2 BP Systolic 123 mmHg BP Diastolic 80 mmHg Heart Rate 86 /min O2 % BldC Oximetry 95 % Body Temperature 98.9 F Pain Level 0 Results Test Date Facility Test Result H/L Range Note TSH+Free T4 04/19/2018 [facility] Lab Thyroid Stim 1.71 uIU/mL Normal 0.30-4.20 [address] [place] [address] [phone] Free T4 1.63 ng/dL High 0.76-1.46 Laboratory 04/19/2018 [facility] Lab Calcium 8.6 mg/dL Normal 8.5- 10.1 test finding [address] [place], [place] [id number] [phone] Laboratory 03/10/2018 [facility] Lab Calcium 8.6 mg/dL Normal 8.5- 10.1 test finding [address] [place], [place] [id number] [phone] Laboratory 03/09/2018 [facility] Surgical SEE 2 test finding [address] [address] BELOW [phone] Laboratory 03/09/2018 [facility] Surgical <pending> test finding [address] [place] [address] [phone] Laboratory 01/20/2018 [facility] Cytology SEE 3, 4 test finding [address] [employer] [place] [address] BELOW [phone] 1 C73 2 SEE RESULT BELOW Name: KINA DAVIS : [address]: Yair Cooper MD Acct: [id number] Unit: [id number] AGE: 77 Location: [facility] Re03/09/18 SEX: F Status: REG REF SPEC: [id number] JAZZMINE: 03/09/18-1334 [facility] [address]: Yair Cooper MD REQ: [id number] RECD: 03/09/18 STATUS: SOUT _ ORDERED: LEVEL 4, LEVEL 5/2 COMMENTS: [id number] FINAL DIAGNOSIS 1. 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 Local extent: Tumor invades into perithyroidal fibroadipose as well as skeletal muscle (strap muscle) tissue. See comment. Margins: Tumor is present at the inked and focally cauterized surgical margin. Multicentricity: Present. Lymphovascular invasion: Not seen. Other findings: Tumor arises in a background of advanced chronic lymphocytic thyroiditis. pTNM histopathologic stage: pT3bN X M N/A. 2. Thyroid, left lobe, lobectomy: -- Papillary carcinoma of thyroid, tall cell variant, with: Size: 10 mm maximal span. Local extent: Limited to the thyroid. Margins: Inked surgical margins are clear.. Multicentricity: Present. Lymphovascular invasion: Not seen. Other findings: Tumor arises in a background of advanced chronic lymphocytic thyroiditis. pTNM histopathologic stage: pT3bN X M N/A. 3. Central compartment lymph node, biopsy: -- Adipose and skeletal muscle tissue. -- No lymph node tissue identified. CONTINUED ON NEXT PAGE DEPARTMENT OF PATHOLOGY, [address] [place] [address] Dayday Arreguin M.D. Director [facility] # [id number] RUN DATE: 03/15/18 [facility] LAB LIVE PAGE 2 Patient: WALLYKINA L [id number] (Continued) FINAL DIAGNOSIS (Continued) Comment: TNM histopathologic staging of this lesion is largely determined based on multiple foci of invasion of armani-thyroidal skeletal muscle in part 1 despite relatively small maximal tumor size. CLINICAL HISTORY No history given GROSS DESCRIPTION 1. The specimen is received in formalin labeled, Right Thyroid Gland, and consists of a 3 g, 3.1 by up to 2.3 x 1.5 cm unoriented thyroid lobe. The capsule is predominantly shaggy root-brown. There is a 0.4 x 0.4 x 0.3 cm root-white indurated nodule which abuts the inked capsule surrounded by a 0.8 x 0.8 x 0.7 cm chalky root-white ill-defined area. The remaining cut surface is predominantly fibrotic root-white to brown. The specimen is inked, serially sectioned and entirely submitted in cassettes A through D to include nodule in cassette B. 2. The specimen is received in formalin labeled, Left Thyroid Gland, and consists of a 2 g, 2.1 by up to 2.0 x 1.3 cm unoriented thyroid lobe. The capsule is predominantly shaggy root-hogan to brown. There is a 0.8 x 0.5 x 0.5 cm root-white indurated lesion within the central specimen, 0.1 cm from the inked capsule. The remaining cut surface is root-brown. The specimen is inked, serially sectioned and entirely submitted in cassettes A through C to include nodule in cassette B. 3. The specimen is received fresh labeled, Central Compartment Lymph Node, and consists of a 1.2 x 1.0 x 0.3 cm aggregate of yellow fat with scant root-pink soft tissue. Entirely submitted, one cassette. Signed by and Reported on: Dayday Arreguin MD 11/25 1334 END OF REPORT DEPARTMENT OF PATHOLOGY, [address] [place] [address] Dayday Arreguin M.D. Director [facility] # [id number] SEE RESULT BELOW Name: WALLYKINA James : [address]: Yair Cooper MD Acct: [id number] Unit: [id number] AGE: 77 Location: [facility] Re01/20/18 SEX: F Status: REG REF SPEC: [id number] JAZZMINE: 01/20/18 [facility] [address]: Yair Cooper MD REQ: [id number] RECD: 01/20/18 STATUS: SOUT _ ORDERED: FNA INTERP [facility] COMMENTS: [id number] FINAL DIAGNOSIS Thyroid, right, fine needle aspiration: -- Malignant- papillary thyroid of carcinoma. Comment: The aspirate smears demonstrate classic features of papillary carcinoma of thyroid including numerous branched vascular and avascular epithelial groups demonstrating moderate nuclear pleomorphism with irregular nuclear contours and grooves. Intranuclear pseudoinclusions are easily found and well-developed waxy metaplastic cytoplasm can be seen in numerous groups. The background demonstrates classic "bubble gum" colloid. Dr. Joshi has reviewed this case and concurs. THYROID RIGHT - RIGHT THYROID FINE NEEDLE ASPIRATION CLINICAL HISTORY Right thyroid nodule. GROSS DESCRIPTION 1 Alcohol fixed slide(s) received from clinician,5 Air dried slide(s) and Needle rinse in CytoLyt solution for thin layer non-cleaner and presser test.(pink) CONTINUED ON NEXT PAGE DEPARTMENT OF PATHOLOGY, [address] [place] [address] Dayday Arreguin M.D. Director [facility] # [id number] RUN DATE: 01/23/18 [facility] LAB LIVE PAGE 2 Patient: KINA DAVIS James [id number] (Continued) GROSS DESCRIPTION (Continued) Signed by and Reported on: Dayday Arreguin MD 1429 END OF REPORT DEPARTMENT OF PATHOLOGY, [address] [place] [address] Dayday Arreguin M.D. Director [facility] # [id number] Procedures Date Code Description Status 12/29/2018 07615 Ultrasound Head/Neck Completed 04/10/2018 135378077 Bone Mineral Density Test Completed 04/10/2018 [id number] Diabetic Retinal Eye Exam Completed 04/10/2018 [id number] Diabetic Foot Exam Completed 03/09/2018 55476 Tympanostomy, Gen. Anesth. Completed 03/09/2018 82396 Thyroidectomy, Total Or Complete Completed 03/09/2018 39616 Thyroidectomy, Total Or Complete Completed 03/09/2018 84625 Tot.Thyroid Lobect./Unil./Isthmus Completed 03/09/2018 95145 Tot.Thyroid Lobect./Unil./Isthmus Completed 03/09/2018 11689 Anesthesia, Neck Organ Surgery Not Otherwise Spec 1Yr Completed Or Older 01/20/2018 32659 Ultrasonic Guide Needle Biopsy Completed 01/20/2018 87782 Fna W/Image Completed 01/13/2018 35637 Tympanometry Completed 01/13/2018 04079 Audiometry, Comprehensive Completed 01/13/2018 43384 Ultrasound Head/Neck Completed Encounters Type Date Location Provider Dx Diagnosis Office Visit 12/29/2018 [place] [facility] Yair Cooper M.D. C73 Malignant neoplasm 12:45p of thyroid gland Z96.22 Myringotomy tube(s) status E03.9 Hypothyroidism, unspecified Office Visit 01/31/2018 9:30a [facility] Yair Cooper M.D. 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 of tympanic membrane, right ear C73 Malignant neoplasm of thyroid gland Office Visit 01/20/2018 10:00a Main Office Yair Cooper H72.11 Attic perforation of M.D. tympanic membrane, right ear E04.2 Nontoxic multinodular goiter Office Visit 01/13/2018 1:30[facility] Cooper, Yair, K21.9 Gastro- esophageal M.D. reflux disease without esophagitis E04.2 Nontoxic multinodular goiter H90.3 Sensorineural hearing loss, bilateral
[2019-01-30 17:20] VITALS: BP 120/66
[2019-01-30] MEDS ORDERED: NS 0.9% 1000 ML** 1,000 ML IV ONE (17:31)
--- NOTE | 2019-01-30 17:35 | UC ---
General HPI - HPI Summary HPI Summary: 78-year-old woman comes in with chief complaint of feeling lightheaded. Should a black stool this morning. She is on Coumadin. She has a history of GI bleeds. The lightheadedness gets worse when she stands up. She feels nauseous. Denies any chest pain or abdominal pain or shortness breath. Denies any spinning dizziness. She did recently have an ear tube removed on the right by ENT. - History of Current Complaint Chief Complaint: UCGeneralIllness Stated Complaint: LBP Time Seen by Provider: 01/30/19 17:14 Pain Intensity: 0 - Allergy/Home Medications Allergies/Adverse Reactions: Allergies Allergy/AdvReac Type Severity Reaction Status Date / Time adhesive tape Allergy Rash Verified 11/12/18 08:39 Beta-Blockers Allergy Unknown Verified 11/12/18 08:39 (Beta-Adrenergic Bloc Reaction Details erythromycin base Allergy Unknown Verified 11/12/18 08:39 Reaction Details lidocaine [From Lidoderm] Allergy Unknown Verified 11/12/18 08:39 Reaction Details meperidine [From Demerol] Allergy Unknown Verified 11/12/18 08:39 Reaction Details nortriptyline Allergy Unknown Verified 11/12/18 08:39 Reaction Details NSAIDS (Non-Steroidal Allergy See Comment Verified 11/12/18 08:39 Anti-Inflamma oxycodone Allergy Altered Verified 11/12/18 08:39 Mental Status Penicillins Allergy Rash Verified 11/12/18 08:39 propoxyphene [From Darvon] Allergy Unknown Verified 11/12/18 08:39 Reaction Details Sulfa (Sulfonamide Allergy Rash Verified 11/12/18 08:39 Antibiotics) tetanus toxoid, adsorbed Allergy Unknown Verified 11/12/18 08:39 Reaction Details hydrocodone AdvReac Altered Verified 11/12/18 08:39 Mental Status PMH/Surg Hx/FS Hx/Imm Hx Previously Healthy: Yes Cardiovascular History: Atrial Fibrillation GI/ History: Gastrointestional Bleed Other History Of: Anticoagulant Therapy - Surgical History Surgical History: Yes Surgery Procedure, Year, and Place: PACEMAKER-1997/2012/2014; HYSTERECTOMY; TURMOR REMOVED RIGHT FEMUR; RIGHT PARTIAL SHOULDER REPLACEMENT. THYROID RESECTION - Family History Known Family History: Positive: Other - negative breast CA Negative: Diabetes Family History: No FHx of breast CA - Social History Alcohol Use: Rare Substance Use Type: None Smoking Status (MU): Never Smoked Tobacco Have You Smoked in the Last Year: No - Immunization History Most Recent Influenza Vaccination: 05/2018 Most Recent Tetanus Shot: unknown Most Recent Pneumonia Vaccination: 02/07/2015 Review of Systems All Other Systems Reviewed And Are Negative: Yes Constitutional: Positive: Other - SEE HPI Skin: Positive: Negative Eyes: Positive: Negative ENT: Positive: Negative Respiratory: Positive: Negative Cardiovascular: Positive: Negative Gastrointestinal: Positive: Nausea, Other - SEE HPI Genitourinary: Positive: Negative Motor: Positive: Negative Neurovascular: Positive: Negative Musculoskeletal: Positive: Negative Neurological: Positive: Negative Psychological: Positive: Negative Is Patient Immunocompromised?: No Physical Exam Triage Information Reviewed: Yes Appearance: Well-Appearing, No Pain Distress, Well-Nourished Vital Signs: Initial Vital Signs Temp 98.5 F 01/30/19 17:15 Pulse 74 01/30/19 17:15 Resp 18 01/30/19 17:15 BP 120/66 01/30/19 17:15 Pulse Ox 100 01/30/19 17:15 Vital Signs Reviewed: Yes Eye Exam: Normal Eyes: Positive: Conjunctiva Clear ENT: Positive: Pharynx normal Neck: Positive: Supple Respiratory: Positive: Lungs clear, Normal breath sounds, No respiratory distress Cardiovascular: Positive: RRR Abdomen Description: Positive: Nontender, Soft Bowel Sounds: Positive: Present Musculoskeletal Exam: Normal Musculoskeletal: Positive: Strength Intact, ROM Intact Neurological Exam: Normal Neurological: Positive: Alert, Muscle Tone Normal Psychological: Positive: Age Appropriate Behavior Skin Exam: Normal Course/Dx - Course Course Of Treatment: Due to the patient feeling lightheaded and she recorded low blood pressures at home and black stool and being on Coumadin with a history of GI bleeds patient was transported to the emergency department by ambulance. - Diagnoses Provider Diagnosis: Dizziness Discharge - Sign-Out/Discharge Documenting (check all that apply): Patient Departure All imaging exams completed and their final reports reviewed: No Studies - Discharge Plan Condition: Stable Disposition: TRANS HIGHER LVL OF CARE FAC Referrals: Jojo Clark MD [Primary Care Provider] - - Billing Disposition and Condition Condition: STABLE Disposition: Trans Higher Lvl of Care Fac
== END 2019-01-30 18:15 | disposition short-term general hospital (02) ==
LOC: UCEAST 17:05
DX: R42 Dizziness and giddiness (principal); I48.91 Unspecified atrial fibrillation; Z88.5 Allergy status to narcotic agent; Z88.0 Allergy status to penicillin; Z88.2 Allergy status to sulfonamides; Z79.01 Long term (current) use of anticoagulants; Z87.19 Personal history of other diseases of the digestive system
CPT/HCPCS: 99213; G0463

== ENCOUNTER 2019-01-30 18:25 | Emergency (ER) | payer MEDICARE ==
[2019-01-30 19:29] LABS: ABS Eosinophils 0.3 10^3/ul (0-0.6); ABS Lymphocytes 2.4 10^3/ul (1.0-4.8); ABS Monocytes 0.8 10^3/ul (0-0.8); Eosinophil % 3.8 %; Hematocrit 43 % (35-47); Hemoglobin 14.1 g/dL (12.0-16.0); Lymphocyte % 32.2 %; Mean Corpuscular HGB Conc 33 g/dL (31-36); Mean Corpuscular Hemoglobin 28 pg (27-31); Mean Corpuscular Volume 84 fL (80-97); Mean Platelet Volume 8.6 fL (7.4-10.4); Nucleated Red Blood Cells % 0.1; Platelet Count 242 10^3/uL (150-450); Red Blood Count 5.11 10^6 /uL (3.70-4.87); Red Cell Distribution Width 19 % (10-15); White Blood Count 7.5 10^3/uL (3.5-10.8)
[2019-01-30 19:30] LABS: Urine Appearance Clear; Urine Bilirubin Negative (Negative); Urine Blood Negative (Negative); Urine Color Straw; Urine Glucose Negative (Negative); Urine Ketones Negative (Negative); Urine Nitrite Negative (Negative); Urine Protein Negative (Negative); Urine Specific Gravity 1.003 (1.010-1.030); Urine Urobilinogen Negative (Negative)
[2019-01-30 19:39] LABS: INR 2.23 (0.82-1.09)
[2019-01-30 19:47] LABS: Albumin/Globulin Ratio 1.1 (1-3); BUN/Creatinine Ratio 28.6 (8-20); Calcium 9.5 mg/dL (8.6-10.3); EGFR African American 79.1 (>60); EGFR Non-African American 65.4 (>60); Globulin 3.7 g/dL (2-4); Potassium 4.6 mmol/L (3.5-5.0); Total Bilirubin 0.5 mg/dL (0.2-1.0); Total Protein 7.7 g/dL (6.4-8.9)
--- NOTE | 2019-01-30 20:18 | ED ---
Dizziness - HPI Summary HPI Summary: Pt is a 78 y/o F presenting to the ED brought in by EMS from for light headedness and concern for rectal bleeding. She states she felt lightheaded this morning, and she noticed that her blood pressure was low (90's systolic) She also notes that she was having dark stool and some nausea. She called her son who told her to come to the ED/. She denies abd pain or chest pain. No headaches. No fevers or chills at home. She takes Hydrocodone as well as Gabapentin every day, and is on Coumadin for AFib. Also has pacemaker for tachycardia. She states she had just taken her pain medication before she felt light headed. - History Of Current Complaint Chief Complaint: EDGIBleed Stated Complaint: BLACK STOOL PER EMS Time Seen by Provider: 01/30/19 18:55 Hx Obtained From: Patient Onset/Duration: Still Present, Gradually Timing: Hours Severity Initially: Mild Severity Currently: Mild Character: Lightheaded, Dizzy Aggravating Factor(s): Nothing Alleviating Factor(s): Nothing Associated Signs And Symptoms: Positive: Nausea, Other: - dark stool, low BP. Negative: Chest Pain - Allergies/Home Medications Allergies/Adverse Reactions: Allergies Allergy/AdvReac Type Severity Reaction Status Date / Time adhesive tape Allergy Rash Verified 01/30/19 18:42 Beta-Blockers Allergy Unknown Verified 01/30/19 18:42 (Beta-Adrenergic Bloc Reaction Details erythromycin base Allergy Unknown Verified 01/30/19 18:42 Reaction Details lidocaine [From Lidoderm] Allergy Unknown Verified 01/30/19 18:42 Reaction Details meperidine [From Demerol] Allergy Unknown Verified 01/30/19 18:42 Reaction Details nortriptyline Allergy Unknown Verified 01/30/19 18:42 Reaction Details NSAIDS (Non-Steroidal Allergy See Comment Verified 01/30/19 18:42 Anti-Inflamma oxycodone Allergy Altered Verified 01/30/19 18:42 Mental Status Penicillins Allergy Rash Verified 01/30/19 18:42 propoxyphene [From Darvon] Allergy Unknown Verified 01/30/19 18:42 Reaction Details Sulfa (Sulfonamide Allergy Rash Verified 01/30/19 18:42 Antibiotics) tetanus toxoid, adsorbed Allergy Unknown Verified 01/30/19 18:42 Reaction Details hydrocodone AdvReac Altered Verified 01/30/19 18:42 Mental Status PMH/Surg Hx/FS Hx/Imm Hx Previously Healthy: Yes Endocrine/Hematology History: Reports: Hx Anticoagulant Therapy, Hx Diabetes - diet controlled, Hx Thyroid Disease - hypo Comment Only: Other Endocrine/Hematological Disorders - Thyroid CA, Thyroidectomy Cardiovascular History: Reports: Hx Atrial Fibrillation, Hx Auto Implanted Cardiovert Defib, Hx Hypercholesterolemia, Hx Hypertension, Hx Pacemaker/ICD - , Other Cardiovascular Problems/Disorders - afib Denies: Hx Aneurysm - AAA Respiratory History: Reports: Hx Pneumonia - aspiration, Other Respiratory Problems/Disorders - ASPIRATION PNEUMONIA Denies: Hx Asthma, Hx Chronic Obstructive Pulmonary Disease (COPD) GI History: Reports: Hx Gastroesophageal Reflux Disease Denies: Hx Ulcer History: Reports: Hx Renal Disease, Other Problems/Disorders - GERD Musculoskeletal History: Reports: Other Musculoskeletal History - Right Shoulder Pain Denies: Hx Osteoporosis Sensory History: Reports: Hx Contacts or Glasses Denies: Hx Hearing Aid Opthamlomology History: Reports: Hx Contacts or Glasses Psychiatric History: Reports: Hx Depression - Cancer History Cancer Type, Location and Year: thyroid CA Hx Chemotherapy: No Hx Radiation Therapy: No - Surgical History Surgery Procedure, Year, and Place: PACEMAKER-1997/2012/2014; HYSTERECTOMY; TURMOR REMOVED RIGHT FEMUR; RIGHT PARTIAL SHOULDER REPLACEMENT. THYROID RESECTION - Immunization History Immunizations Up to Date: Yes Infectious Disease History: Yes Infectious Disease History: Reports: Hx Clostridium Difficile, Hx Shingles - Buttocks Denies: Hx Hepatitis, Hx Human Immunodeficiency Virus (HIV), Traveled Outside the [place] in Last 30 Days - Family History Known Family History: Positive: Other - negative breast CA Negative: Diabetes Family History: No FHx of breast CA - Social History Alcohol Use: Rare Hx Substance Use: No Substance Use Type: Reports: None Hx Tobacco Use: No Smoking Status (MU): Never Smoked Tobacco Have You Smoked in the Last Year: No Review of Systems Positive: Other - low BP Negative: Chest Pain Positive: Nausea, Other - dark stool. Negative: Abdominal Pain Neurological: Other - lightheaded, dizzy All Other Systems Reviewed And Are Negative: Yes Physical Exam - Summary Physical Exam Summary: Constitutional: Well-developed, Well-nourished, Alert. (-) Distressed Skin: Warm, Dry, old tracheostomy scar present HENT: Normocephalic; Atraumatic Eyes: Conjunctiva normal Neck: Musculoskeletal ROM normal neck. (-) JVD, (-) Stridor Cardio: Rhythm regular, rate normal, Heart sounds normal; Intact distal pulses; Radial pulses are 2+ and symmetric. (-) Murmur Pulmonary/Chest wall: Pacemaker on chest wall. Effort normal. (-) Respiratory distress, (-) Wheezes, (-) Rales Abd: Soft, (-) tenderness, (-) Distension, (-) Guarding, (-) Rebound. Rectal exam is nml. Musculoskeletal: (-) Edema Lymph: (-) Cervical adenopathy Neuro: Alert, Oriented x3, cranial nerves II through XII grossly intact. Ambulates w steady gait. Psych: Mood and affect Normal Triage Information Reviewed: Yes Vital Signs On Initial Exam: Initial Vitals Temp Pulse Resp BP Pulse Ox 97.7 F 76 16 152/81 100 01/30/19 18:28 01/30/19 18:28 01/30/19 18:28 01/30/19 18:28 01/30/19 18:28 Vital Signs Reviewed: Yes Diagnostics - Vital Signs Vital Signs Temp Pulse Resp BP Pulse Ox 01/30/19 19:24 73 131/71 99 01/30/19 19:05 76 99 01/30/19 19:04 149/79 01/30/19 18:28 97.7 F 76 16 152/81 100 - Laboratory Lab Results: Lab Results 01/30/19 01/30/19 01/30/19 Range/Units 19:07 19:16 19:16 WBC 7.5 (3.5-10.8) 10^3/uL RBC 5.11 H (3.70-4.87) 10^6 /uL Hgb 14.1 (12.0-16.0) g/dL Hct 43 (35-47) % MCV 84 (80-97) fL MCH 28 (27-31) pg MCHC 33 (31-36) g/dL RDW 19 H (10-15) % Plt Count 242 (150-450) 10^3/uL MPV 8.6 (7.4-10.4) fL Neut % (Auto) 52.6 % Lymph % (Auto) 32.2 % Elliott % (Auto) 10.7 % Eos % (Auto) 3.8 % Baso % (Auto) 0.7 % Absolute Neuts (auto) 4.0 (1.5-7.7) 10^3/ul Absolute Lymphs (auto) 2.4 (1.0-4.8) 10^3/ul Absolute Monos (auto) 0.8 (0-0.8) 10^3/ul Absolute Eos (auto) 0.3 (0-0.6) 10^3/ul Absolute Basos (auto) 0.0 (0-0.2) 10^3/ul Absolute Nucleated RBC 0.0 10^3/ul Nucleated RBC % 0.1 INR (Anticoag Therapy) 2.23 H (0.82-1.09) Sodium (135-145) mmol/L Potassium (3.5-5.0) mmol/L Chloride (101-111) mmol/L Carbon Dioxide (22-32) mmol/L Anion Gap (2-11) mmol/L BUN (6-24) mg/dL Creatinine (0.51-0.95) mg/dL Est GFR ( Amer) (>60) Est GFR (Non-Af Amer) (>60) BUN/Creatinine Ratio (8-20) Glucose (70-100) mg/dL Calcium (8.6-10.3) mg/dL Total Bilirubin (0.2-1.0) mg/dL AST (13-39) U/L ALT (7-52) U/L Alkaline Phosphatase (34-104) U/L Troponin I (<0.04) ng/mL Total Protein (6.4-8.9) g/dL Albumin (3.2-5.2) g/dL Globulin (2-4) g/dL Albumin/Globulin Ratio (1-3) Urine Color Straw Urine Appearance Clear Urine pH 5.0 (5-9) Ur Specific [place] 1.003 L (1.010-1.030) Urine Protein Negative (Negative) Urine Ketones Negative (Negative) Urine Blood Negative (Negative) Urine Nitrate Negative (Negative) Urine Bilirubin Negative (Negative) Urine Urobilinogen Negative (Negative) Ur Leukocyte Esterase Negative (Negative) Urine Glucose Negative (Negative) 01/30/19 Range/Units 19:16 WBC (3.5-10.8) 10^3/uL RBC (3.70-4.87) 10^6 /uL Hgb (12.0-16.0) g/dL Hct (35-47) % MCV (80-97) fL MCH (27-31) pg MCHC (31-36) g/dL RDW (10-15) % Plt Count (150-450) 10^3/uL MPV (7.4-10.4) fL Neut % (Auto) % Lymph % (Auto) % Elliott % (Auto) % Eos % (Auto) % Baso % (Auto) % Absolute Neuts (auto) (1.5-7.7) 10^3/ul Absolute Lymphs (auto) (1.0-4.8) 10^3/ul Absolute Monos (auto) (0-0.8) 10^3/ul Absolute Eos (auto) (0-0.6) 10^3/ul Absolute Basos (auto) (0-0.2) 10^3/ul Absolute Nucleated RBC 10^3/ul Nucleated RBC % INR (Anticoag Therapy) (0.82-1.09) Sodium 136 (135-145) mmol/L Potassium 4.6 (3.5-5.0) mmol/L Chloride 101 (101-111) mmol/L Carbon Dioxide 27 (22-32) mmol/L Anion Gap 8 (2-11) mmol/L BUN 24 (6-24) mg/dL Creatinine 0.84 (0.51-0.95) mg/dL Est GFR ( Amer) 79.1 (>60) Est GFR (Non-Af Amer) 65.4 (>60) BUN/Creatinine Ratio 28.6 H (8-20) Glucose 109 H (70-100) mg/dL Calcium 9.5 (8.6-10.3) mg/dL Total Bilirubin 0.50 (0.2-1.0) mg/dL AST 23 (13-39) U/L ALT 15 (7-52) U/L Alkaline Phosphatase 118 H (34-104) U/L Troponin I 0.00 (<0.04) ng/mL Total Protein 7.7 (6.4-8.9) g/dL Albumin 4.0 (3.2-5.2) g/dL Globulin 3.7 (2-4) g/dL Albumin/Globulin Ratio 1.1 (1-3) Urine Color Urine Appearance Urine pH (5-9) Ur Specific [place] (1.010-1.030) Urine Protein (Negative) Urine Ketones (Negative) Urine Blood (Negative) Urine Nitrate (Negative) Urine Bilirubin (Negative) Urine Urobilinogen (Negative) Ur Leukocyte Esterase (Negative) Urine Glucose (Negative) Result Diagrams: 01/30/19 19:16 01/30/19 19:16 Lab Statement: Any lab studies that have been ordered have been reviewed, and results considered in the medical decision making process. - EKG 192 Cardiac Rate: Other Rate - 70bpm V-paced EKG Comparison: No Significant Change - from 11/12/18 Summary of EKG Findings: EKG at 1925 shows V-paced rhythm at 70bpm. No change from 11/12/18. Re-Evaluation - Re-Evaluation 1st re-eval Re-Evaluation Time: 20:31 Change: Unchanged Comment: Pt's stool occult is negative. She states she feels better and would like to go home. No e/o infection on labs. Trop negative. Dizzy Course/Dx - Course Course Of Treatment: 78-year-old female with a history of tachycardia status post AICD placement, atrial fibrillation on Coumadin, who presents with lightheadedness and concern for dark stools. - Physical exam of the well- appearing elderly female in no acute distress. EKG is at baseline showed a paced rhythm. - Rectal exam without gross blood will send guaiac. Patient given IV fluids. Will check CBC for anemia, electrolytes given fatigue, as well as troponin. - Normal neuro exam and no headache therefore will not check a head CT - Diagnoses Provider Diagnoses: Fatigue Discharge - Sign-Out/Discharge Documenting (check all that apply): Patient Departure Patient Received Moderate/Deep Sedation with Procedure: No - Discharge Plan Condition: Critical Disposition: HOME Referrals: Jojo Clark MD [Primary Care Provider] - Additional Instructions: You were seen in the emergency department for concern over dark stool. We did not notice any blood in her stool. Your labs were unremarkable including your INR of 2.2 Please follow up with your primary care provider. Return to the emergency department with any new or worsening symptoms. - Billing Disposition and Condition Condition: CRITICAL Disposition: Home - Attestation Statements Document Initiated by Scribe: Yes Documenting Scribe: Ginette Reyes Provider For Whom Rima is Documenting (Include Credential): Hafsa Becerra MD. Scribe Attestation: IGinette, scribed for Hafsa Becerra MD. on 01/30/19 at 2209. Scribe Documentation Reviewed: Yes Provider Attestation: The documentation as recorded by the scribe, Ginette Reyes accurately reflects the service I personally performed and the decisions made by , Hafsa Becerra MD. Status of Scribe Document: Viewed
[2019-01-30 21:57] VITALS: BP 132/75
== END 2019-01-30 20:45 | disposition home or self-care (01) ==
LOC: ED 18:25
DX: R53.83 Other fatigue (principal); Z88.1 Allergy status to other antibiotic agents; Z88.5 Allergy status to narcotic agent; Z88.0 Allergy status to penicillin; Z88.2 Allergy status to sulfonamides; Z88.8 Allergy status to other drugs, medicaments and biological substances; E11.9 Type 2 diabetes mellitus without complications; E03.9 Hypothyroidism, unspecified; I48.91 Unspecified atrial fibrillation; I10 Essential (primary) hypertension; E78.00 Pure hypercholesterolemia, unspecified; Z95.0 Presence of cardiac pacemaker; K21.9 Gastro-esophageal reflux disease without esophagitis; F32.9 Major depressive disorder, single episode, unspecified; Z79.01 Long term (current) use of anticoagulants; Z79.899 Other long term (current) drug therapy; Z87.19 Personal history of other diseases of the digestive system; R42 Dizziness and giddiness
CPT/HCPCS: 36415; 80053; 81003; 82272; 84484; 85025; 85610; 93005; 99213; 99282; G0463

== ENCOUNTER 2020-04-18 20:11 | Inpatient (IN) ==
[2020-04-18] MEDS ORDERED: Ondansetron 4 mg VIAL 2 MG/ML 2 ml VIAL IV ONE ×2 (22:14→23:28)
[2020-04-18 22:34] LABS: ABS Lymphocytes 1.5 10^3/ul (1.0-4.8); ABS Monocytes 1.4 10^3/ul (0-0.8); ABS Neutrophils 15.4 10^3/ul (1.5-7.7); Eosinophil % 0.1 %; Hematocrit 45 % (35-47); Hemoglobin 15.3 g/dL (12.0-16.0); Mean Corpuscular HGB Conc 34 g/dL (31-36); Mean Corpuscular Hemoglobin 32 pg (27-31); Mean Corpuscular Volume 92 fL (80-97); Mean Platelet Volume 8.6 fL (7.4-10.4); Platelet Count 232 10^3/uL (150-450); Red Blood Count 4.85 10^6 /uL (3.70-4.87); Red Cell Distribution Width 14 % (10-15); White Blood Count 18.3 10^3/uL (3.5-10.8)
[2020-04-18 22:52] LABS: Albumin 4.3 g/dL (3.2-5.2); Albumin/Globulin Ratio 1.3 (1-3); C Reactive Protein 24.25 mg/L (<8.01); Calcium 9.8 mg/dL (8.6-10.3); EGFR African American 88.6 (>60); EGFR Non-African American 73.2 (>60); Globulin 3.4 g/dL (2-4); Magnesium 1.8 mg/dL (1.9-2.7); Potassium 4.2 mmol/L (3.5-5.0); Total Bilirubin 1.3 mg/dL (0.2-1.0); Total Protein 7.7 g/dL (6.4-8.9)
[2020-04-18 22:54] LABS: Troponin I 0.01 ng/mL (<0.03)
[2020-04-18] MEDS ORDERED: Lactated Ringers 1000 ml BAG 1,000 ML IV ONE ×2 (23:00→23:45)
[2020-04-18] MEDS ORDERED: Iohexol 300 (CONTRAST) 10 ML SDV IV ONE (23:19)
[2020-04-19] MEDS ORDERED: Lactated Ringers 1000 ml BAG 1,000 ML IV ONE (01:31)
[2020-04-19] MEDS ORDERED: HYDROmorphone 0.5 MG/0.5 ML SYRINGE IV SLOW PU PRN (01:32)
[2020-04-19] MEDS ORDERED: Dextrose 50% Syringe 50 ml 25 GM/50 ML SYRINGE IV PUSH PRN (01:33)
[2020-04-19] MEDS ORDERED: Magnesium Sulfate IV 1GM/100ML 1 GM/100 ML BAG IV ONE (01:38)
[2020-04-19] MEDS ORDERED: Prochlorperazine 5 mg/ml 2 ml VIAL (10 mg) IV ONE (02:25)
[2020-04-19] MEDS ORDERED: HYDROmorphone 0.5 MG/0.5 ML SYRINGE IV ONE (02:25)
[2020-04-19 03:10] LABS: Urine Appearance Clear; Urine Bilirubin Negative (Negative); Urine Blood 1+ (Negative); Urine Color Yellow; Urine Glucose Negative (Negative); Urine Ketones Negative (Negative); Urine Nitrite Negative (Negative); Urine Protein Negative (Negative); Urine Specific Gravity 1.057 (1.010-1.030); Urine Urobilinogen Negative (Negative)
[2020-04-19 04:12] LABS: Urine Bacteria Absent (Absent); Urine Red Blood Cell Trace(0-2/hpf) (Absent); Urine Squamous Epithelial Cell Present (Absent); Urine White Blood Cell Trace(0-5/hpf) (Absent)
[2020-04-19] MEDS ORDERED: Ondansetron 4 mg VIAL 2 MG/ML 2 ml VIAL ONE (07:56)
[2020-04-19] MEDS ORDERED: Cyclosporine 0.05% OPHTH (NF) 0.4 ML VIAL BOTH EYES SCH (09:00)
[2020-04-19] MEDS: Prochlorperazine 5 mg/ml 2 ml VIAL (10 mg) IV PRN ×2 (09:56→17:15)
[2020-04-19 10:04] LABS: Hepatitis B Surface Antigen Nonreactive (Nonreactive)
[2020-04-19 10:09] LABS: Hepatitis A Ab IgM Negative (Negative); Hepatitis B Core IgM Nonreactive (Nonreactive)
[2020-04-19 10:21] LABS: Hepatitis C Antibody Negative (Negative)
[2020-04-19] MEDS: Cholecalciferol (VIT D3) 1,000 unit TAB PO SCH (12:03)
[2020-04-19] MEDS: DULoxetine DR 30 mg CAP PO SCH (12:03)
[2020-04-19] MEDS: Potassium Chlor 10 meq TAB PO SCH (12:06)
[2020-04-19] MEDS: Ondansetron 4 mg VIAL 2 MG/ML 2 ml VIAL IV PRN (14:57)
[2020-04-19] MEDS: CMC:Cyclosporine 0.05% OPHTH (NF) 0.4 ML VIAL BOTH EYES SCH (19:46)
[2020-04-20 07:02] LABS: ABS Eosinophils 0.1 10^3/ul (0-0.6); ABS Lymphocytes 1.6 10^3/ul (1.0-4.8); ABS Monocytes 0.9 10^3/ul (0-0.8); Eosinophil % 0.9 %; Hematocrit 34 % (35-47); Hemoglobin 11.8 g/dL (12.0-16.0); Lymphocyte % 18.7 %; Mean Corpuscular HGB Conc 34 g/dL (31-36); Mean Corpuscular Hemoglobin 32 pg (27-31); Mean Corpuscular Volume 95 fL (80-97); Platelet Count 177 10^3/uL (150-450); Red Blood Count 3.64 10^6 /uL (3.70-4.87); Red Cell Distribution Width 14 % (10-15); White Blood Count 8.6 10^3/uL (3.5-10.8)
[2020-04-20 07:20] LABS: Albumin 3.4 g/dL (3.2-5.2); Albumin/Globulin Ratio 1.2 (1-3); BUN/Creatinine Ratio 15.3 (8-20); Calcium 8.5 mg/dL (8.6-10.3); EGFR African American 94.3 (>60); EGFR Non-African American 77.9 (>60); Globulin 2.8 g/dL (2-4); Total Bilirubin 1.4 mg/dL (0.2-1.0); Total Protein 6.2 g/dL (6.4-8.9)
[2020-04-20] MEDS: DULoxetine DR 30 mg CAP PO SCH (08:21)
[2020-04-20] MEDS: Cholecalciferol (VIT D3) 1,000 unit TAB PO SCH (08:21)
[2020-04-20] MEDS: Potassium Chlor 10 meq TAB PO SCH (08:21)
[2020-04-20] MEDS: CMC:Cyclosporine 0.05% OPHTH (NF) 0.4 ML VIAL BOTH EYES SCH ×2 (08:25→21:13)
[2020-04-20] MEDS: Lactated Ringers 1000 ml BAG 1,000 ML IV SCH (13:43)
[2020-04-21] MEDS: Prochlorperazine 5 mg/ml 2 ml VIAL (10 mg) IV PRN (07:20)
[2020-04-21] MEDS: Heparin 5000 UNITS/ML 1 mL VIAL SUBCUT SCH ×2 (07:22→14:08)
[2020-04-21 07:43] LABS: Hematocrit 34 % (35-47); Hemoglobin 11.8 g/dL (12.0-16.0); Mean Corpuscular HGB Conc 35 g/dL (31-36); Mean Corpuscular Hemoglobin 33 pg (27-31); Mean Corpuscular Volume 94 fL (80-97); Mean Platelet Volume 9.6 fL (7.4-10.4); Platelet Count 210 10^3/uL (150-450); Red Blood Count 3.63 10^6 /uL (3.70-4.87); Red Cell Distribution Width 14 % (10-15); White Blood Count 10.1 10^3/uL (3.5-10.8)
[2020-04-21 07:46] LABS: ALT 39 U/L (7-52); Albumin 3.4 g/dL (3.2-5.2); Albumin/Globulin Ratio 1.1 (1-3); Alkaline Phosphatase 143 U/L (34-104); BUN/Creatinine Ratio 14.1 (8-20); Blood Urea Nitrogen 10 mg/dL (6-24); CO2 Carbon Dioxide 25 mmol/L (22-32); Calcium 8.6 mg/dL (8.6-10.3); Chloride 97 mmol/L (101-111); EGFR African American 95.8 (>60); EGFR Non-African American 79.2 (>60); Glucose 82 mg/dL (70-100); Sodium 131 mmol/L (135-145); Total Protein 6.4 g/dL (6.4-8.9)
[2020-04-21] MEDS: DULoxetine DR 30 mg CAP PO SCH (09:00)
[2020-04-21] MEDS: Potassium Chlor 10 meq TAB PO SCH (09:00)
[2020-04-21] MEDS: Cholecalciferol (VIT D3) 1,000 unit TAB PO SCH (09:00)
[2020-04-21] MEDS: CMC:Cyclosporine 0.05% OPHTH (NF) 0.4 ML VIAL BOTH EYES SCH ×2 (09:06→20:08)
[2020-04-21 09:18] LABS: Anion Gap 9 mmol/L (2-11)
[2020-04-21 09:30] LABS: ABS Basophils 0.1 10^3/ul (0-0.2); ABS Eosinophils 0.1 10^3/ul (0-0.6); ABS Lymphocytes 1.9 10^3/ul (1.0-4.8); ABS Monocytes 1.2 10^3/ul (0-0.8); ABS Neutrophils 6.8 10^3/ul (1.5-7.7); ABS Nucleated RBC 0.1 10^3/ul; Eosinophil % 1.3 %; Lymphocyte % 18.9 %; Nucleated Red Blood Cells % 0.6
[2020-04-21] MEDS: Lactated Ringers 1000 ml BAG 1,000 ML IV SCH ×2 (11:30→14:21)
[2020-04-22] MEDS: CMC:Cyclosporine 0.05% OPHTH (NF) 0.4 ML VIAL BOTH EYES SCH ×2 (08:52→22:47)
[2020-04-22] MEDS: DULoxetine DR 30 mg CAP PO SCH (09:01)
[2020-04-22] MEDS: Cholecalciferol (VIT D3) 1,000 unit TAB PO SCH (09:01)
[2020-04-22] MEDS: Potassium Chlor 10 meq TAB PO SCH (09:02)
[2020-04-22] MEDS ORDERED: Morphine 2 MG/ML SYRINGE IV PRN (09:56)
[2020-04-22] MEDS ORDERED: Scopolamine PATCH Remove NOTE PATCH OFF SCH (10:00)
[2020-04-22] MEDS ORDERED: fentaNYL 100 mcg/2 ml 50 MCG/ML VIAL ONE (18:17)
[2020-04-22] MEDS ORDERED: Etomidate 20 mg/10 ml 2 MG/ML 10 ml VIAL ONE (18:17)
[2020-04-22] MEDS ORDERED: Lidocaine 2% PF 5 ML VIAL ONE (18:17)
[2020-04-22] MEDS ORDERED: Propofol 10 MG/ML 20 ML BTL ONE (18:17)
[2020-04-22] MEDS ORDERED: Succinylcholine 200 mg VIAL 20 mg/ml 10 ml VIAL (200 mg) ONE (18:17)
[2020-04-22] MEDS ORDERED: Rocuronium 50 mg VIAL 10 mg/ml 5 ml VIAL (50 mg) ONE (18:32)
[2020-04-22 21:35] LABS: HIV 4th Generation Nonreactive (Nonreactive)
[2020-04-22 22:25] LABS: Hepatitis B Surface Antigen Nonreactive (Nonreactive)
[2020-04-22] MEDS: Ondansetron 4 mg VIAL 2 MG/ML 2 ml VIAL IV PRN (23:23)
[2020-04-23] MEDS: Ondansetron 4 mg VIAL 2 MG/ML 2 ml VIAL IV PRN (00:40)
[2020-04-23] MEDS: Lactated Ringers 1000 ml BAG 1,000 ML IV SCH (01:49)
[2020-04-23 03:51] LABS: Hepatitis B Surface Ab Not Immune (Immune); Hepatitis C Antibody Negative (Negative)
[2020-04-23 09:07] LABS: ALT 24 U/L (7-52); Albumin 3.3 g/dL (3.2-5.2); Albumin/Globulin Ratio 1.1 (1-3); Alkaline Phosphatase 138 U/L (34-104); BUN/Creatinine Ratio 13.6 (8-20); Blood Urea Nitrogen 8 mg/dL (6-24); CO2 Carbon Dioxide 25 mmol/L (22-32); Calcium 8.7 mg/dL (8.6-10.3); Chloride 99 mmol/L (101-111); EGFR African American 118.7 (>60); EGFR Non-African American 98.1 (>60); Glucose 85 mg/dL (70-100); Lipase 36 U/L (11.0-82.0); Sodium 135 mmol/L (135-145); Total Protein 6.3 g/dL (6.4-8.9)
[2020-04-23 09:08] LABS: Anion Gap 11 mmol/L (2-11)
[2020-04-23 09:19] LABS: ABS Eosinophils 0.1 10^3/ul (0-0.6); ABS Lymphocytes 1.3 10^3/ul (1.0-4.8); ABS Monocytes 1.2 10^3/ul (0-0.8); Eosinophil % 0.8 %; Hematocrit 33 % (35-47); Hemoglobin 11.5 g/dL (12.0-16.0); Lymphocyte % 15.4 %; Mean Corpuscular HGB Conc 35 g/dL (31-36); Mean Corpuscular Hemoglobin 32 pg (27-31); Mean Corpuscular Volume 94 fL (80-97); Mean Platelet Volume 8.4 fL (7.4-10.4); Platelet Count 228 10^3/uL (150-450); Red Blood Count 3.56 10^6 /uL (3.70-4.87); Red Cell Distribution Width 14 % (10-15); White Blood Count 8.7 10^3/uL (3.5-10.8)
[2020-04-23] MEDS: DULoxetine DR 30 mg CAP PO SCH (10:00)
[2020-04-23] MEDS: Cholecalciferol (VIT D3) 1,000 unit TAB PO SCH (10:00)
[2020-04-23] MEDS: Potassium Chlor 10 meq TAB PO SCH (10:01)
[2020-04-23] MEDS: CMC:Cyclosporine 0.05% OPHTH (NF) 0.4 ML VIAL BOTH EYES SCH ×2 (10:14→21:39)
[2020-04-23 11:02] LABS: Potassium Redraw 3.7 mmol/L (3.5-5.0)
[2020-04-23] MEDS ORDERED: Oral Rinse (Biotene)(NF) 237 ML or 473 ML ORAL RINSE BTL MT PRN (17:00)
[2020-04-24] MEDS ORDERED: Senna TAB 8.6 mg TAB PO PRN (07:40)
[2020-04-24] MEDS ORDERED: Polyethylene Glycol 3350 17 GM PACKET PO PRN (07:41)
[2020-04-24] MEDS: CMC:Cyclosporine 0.05% OPHTH (NF) 0.4 ML VIAL BOTH EYES SCH (07:43)
[2020-04-24] MEDS: Ondansetron 4 mg VIAL 2 MG/ML 2 ml VIAL IV PRN (07:44)
[2020-04-24] MEDS: DULoxetine DR 30 mg CAP PO SCH (07:44)
[2020-04-24] MEDS: Potassium Chlor 10 meq TAB PO SCH (07:44)
[2020-04-24] MEDS: Cholecalciferol (VIT D3) 1,000 unit TAB PO SCH (07:45)
[2020-04-24] MEDS ORDERED: Nystatin TOP POWDER 15 GM BTL TOPICAL SCH (09:00)
[2020-04-24 12:39] VITALS: BP 124/65
== END 2020-04-24 13:30 | disposition home or self-care (01) | DRG 439 ==
LOC: MED 20:11 → ED 20:11 → MED 04-19 03:49
PROVIDERS: ADMIT Internal Medicine Interventional Cardiology; ATTEND Hospitalist

== ENCOUNTER 2022-05-05 19:48 | Inpatient (IN) ==
[2022-05-05 22:14] LABS: ABS Lymphocytes 1.5 10^3/ul (1.0-4.8); ABS Monocytes 0.8 10^3/ul (0-0.8); ABS Neutrophils 3.4 10^3/ul (1.5-7.7); Eosinophil % 0.7 %; Hematocrit 45 % (35-47); Hemoglobin 15.1 g/dL (12.0-16.0); Lymphocyte % 25.5 %; Mean Corpuscular HGB Conc 34 g/dL (31-36); Mean Corpuscular Hemoglobin 31 pg (27-31); Mean Corpuscular Volume 92 fL (80-97); Mean Platelet Volume 7.6 fL (7.4-10.4); Nucleated Red Blood Cells % 0.1; Platelet Count 249 10^3/uL (150-450); Red Blood Count 4.84 10^6 /uL (3.70-4.87); Red Cell Distribution Width 13 % (10-15); White Blood Count 5.8 10^3/uL (3.5-10.8)
[2022-05-05 23:01] LABS: ALT 19 U/L (7-52); AST 24 U/L (13-39); Acetaminophen < 15 mcg/mL; Albumin 4.3 g/dL (3.2-5.2); Albumin/Globulin Ratio 1.5 (1-3); Alcohol, S < 13 mg/dL (<13); Alkaline Phosphatase 118 U/L (35-149); Anion Gap 9 mmol/L (2-11); Blood Urea Nitrogen 8 mg/dL (6-24); CO2 Carbon Dioxide 30 mmol/L (22-32); Calcium 9.2 mg/dL (8.6-10.3); Chloride 89 mmol/L (101-111); Globulin 2.9 g/dL (2-4); Glucose 106 mg/dL (70-100); Potassium 3.7 mmol/L (3.5-5.0); Salicylate < 2.50 mg/dL (<30); Sodium 128 mmol/L (135-145); Total Protein 7.2 g/dL (6.4-8.9); eGFR CKD-EPI 89.2 (>60)
[2022-05-05 23:15] LABS: TSH Ultra Thyroid Stim Horm 7.24 mcIU/mL (0.34-5.60)
[2022-05-06] MEDS: Ketorolac 0.5% OPHTH (NF) 0.5 % 5 ML BTL BOTH EYES SCH ×3 (01:35→21:15)
[2022-05-06 01:53] LABS: Free T4 1.22 ng/dL (0.61-1.12)
[2022-05-06] MEDS ORDERED: Ondansetron ODT 4 mg TAB 4 MG TAB PO ONE (05:44)
[2022-05-06 05:48] LABS: Urine Appearance Cloudy; Urine Bilirubin Negative (Negative); Urine Blood Negative (Negative); Urine Color Straw; Urine Glucose Negative (Negative); Urine Ketones Negative (Negative); Urine Nitrite Negative (Negative); Urine Protein Negative (Negative); Urine Specific Gravity 1.004 (1.002-1.030); Urine Urobilinogen Negative (Negative)
[2022-05-06 06:00] LABS: Urine Benzodiazepine Screen None Detected (None Detect); Urine Cannabinoids Screen None Detected (None Detect); Urine Opiates Screen None Detected (None Detect)
[2022-05-06] MEDS ORDERED: Al Hydrox/Mg Hydrox/Simet LIQ 30 ML UDC PO ONE (13:19)
[2022-05-06] MEDS ORDERED: Lorazepam PYXIS KEY PRN (13:52)
[2022-05-06] MEDS: Pantoprazole VIAL 40 MG VIAL IV SCH (16:47)
[2022-05-06] MEDS: Ondansetron 4 mg VIAL 2 MG/ML 2 ml VIAL IV PRN (18:06)
[2022-05-06] MEDS: Acetaminophen IV 1 GM/100ML 1,000 MG/100 ML BAG IV PRN (18:07)
[2022-05-06] MEDS: NS 0.9% 1000 ml BAG 1,000 ML IV SCH (18:07)
[2022-05-06 19:06] LABS: High Sensitivity Troponin 1 Hr 11 pg/mL (<15)
[2022-05-06] MEDS ORDERED: Polymyx/Trimethoprim OPTH.SOL 1 BTL BOTH EYES SCH (21:00)
[2022-05-06] MEDS: Fluticasone NASAL SPRAY 50MCG 16 gm SPRAY BTL BOTH NARES SCH (21:13)
[2022-05-06] MEDS: LORazepam 2 mg VIAL 1 ml IV PUSH PRN (21:29)
[2022-05-07] MEDS: NS 0.9% 1000 ml BAG 1,000 ML IV SCH (01:28)
[2022-05-07 06:33] LABS: ABS Eosinophils 0.1 10^3/ul (0-0.6); ABS Lymphocytes 1.8 10^3/ul (1.0-4.8); ABS Monocytes 0.9 10^3/ul (0-0.8); ABS Neutrophils 3.1 10^3/ul (1.5-7.7); Hematocrit 47 % (35-47); Hemoglobin 15.4 g/dL (12.0-16.0); Mean Corpuscular HGB Conc 33 g/dL (31-36); Mean Corpuscular Hemoglobin 31 pg (27-31); Mean Corpuscular Volume 95 fL (80-97); Mean Platelet Volume 7.7 fL (7.4-10.4); Platelet Count 226 10^3/uL (150-450); Red Blood Count 4.95 10^6 /uL (3.70-4.87); Red Cell Distribution Width 13 % (10-15); White Blood Count 5.8 10^3/uL (3.5-10.8)
[2022-05-07 06:36] LABS: Calcium 8.6 mg/dL (8.6-10.3); Potassium 3.7 mmol/L (3.5-5.0)
[2022-05-07 06:42] LABS: eGFR CKD-EPI 86.9 (>60)
[2022-05-07] MEDS: Pantoprazole VIAL 40 MG VIAL IV SCH (08:24)
[2022-05-07] MEDS: Ketorolac 0.5% OPHTH (NF) 0.5 % 5 ML BTL BOTH EYES SCH ×2 (08:25→20:28)
[2022-05-07] MEDS: Nystatin TOP POWDER 15 GM BTL TOPICAL SCH ×2 (08:25→20:42)
[2022-05-07] MEDS: Fluticasone NASAL SPRAY 50MCG 16 gm SPRAY BTL BOTH NARES SCH (08:25)
[2022-05-07] MEDS: Acetaminophen IV 1 GM/100ML 1,000 MG/100 ML BAG IV PRN ×2 (10:42→23:24)
[2022-05-07] MEDS: Polymyx/Trimethoprim OPTH.SOL 1 BTL BOTH EYES SCH ×3 (14:04→20:28)
[2022-05-07] MEDS: Sucralfate 1 gm SUSP 1 GM/10 ML UDC PO SCH ×2 (16:25→20:27)
[2022-05-07] MEDS: LORazepam 2 mg VIAL 1 ml IV PUSH PRN (20:27)
[2022-05-07] MEDS ORDERED: Dextran 70/Hypromellose Tears Eye Drops 15 ml BTL (for Artificials Tears) BOTH EYES PRN (22:48)
[2022-05-08] MEDS: Acetaminophen IV 1 GM/100ML 1,000 MG/100 ML BAG IV PRN ×2 (05:50→11:30)
[2022-05-08] MEDS: LORazepam 2 mg VIAL 1 ml IV PUSH PRN ×2 (05:54→11:39)
[2022-05-08 07:18] LABS: Blood Urea Nitrogen 11 mg/dL (6-24); CO2 Carbon Dioxide 28 mmol/L (22-32); Calcium 8.3 mg/dL (8.6-10.3); Chloride 92 mmol/L (101-111); Glucose 100 mg/dL (70-100); Sodium 129 mmol/L (135-145); eGFR CKD-EPI 75.8 (>60)
[2022-05-08 07:21] LABS: Anion Gap 9 mmol/L (2-11)
[2022-05-08] MEDS ORDERED: NS 0.9% 1000 ml BAG 1,000 ML IV SCH (07:30)
[2022-05-08] MEDS: Pantoprazole VIAL 40 MG VIAL IV SCH (08:04)
[2022-05-08] MEDS: Sucralfate 1 gm SUSP 1 GM/10 ML UDC PO SCH ×4 (08:04→22:22)
[2022-05-08] MEDS: Fluticasone NASAL SPRAY 50MCG 16 gm SPRAY BTL BOTH NARES SCH (08:05)
[2022-05-08] MEDS: Nystatin TOP POWDER 15 GM BTL TOPICAL SCH ×2 (08:05→21:23)
[2022-05-08] MEDS: Ketorolac 0.5% OPHTH (NF) 0.5 % 5 ML BTL BOTH EYES SCH ×2 (08:05→21:00)
[2022-05-08] MEDS: Polymyx/Trimethoprim OPTH.SOL 1 BTL BOTH EYES SCH ×4 (08:17→21:23)
[2022-05-08] MEDS ORDERED: Potassium Chloride LIQUID 20 MEQ/15 ML LIQUID PO ONE (11:32)
[2022-05-08 14:27] LABS: Osmolality Serum 276 mOsm/kg (275-295)
[2022-05-08] MEDS: Ondansetron 4 mg VIAL 2 MG/ML 2 ml VIAL IV PRN (14:38)
[2022-05-08 20:56] LABS: Urine Osmo 255 mOsm/kg (150-1150)
[2022-05-09 07:42] LABS: Calcium 8.9 mg/dL (8.6-10.3); Potassium 3.9 mmol/L (3.5-5.0); eGFR CKD-EPI 74.6 (>60)
[2022-05-09] MEDS: Pantoprazole VIAL 40 MG VIAL IV SCH (08:32)
[2022-05-09] MEDS: Sucralfate 1 gm SUSP 1 GM/10 ML UDC PO SCH ×4 (08:32→20:09)
[2022-05-09] MEDS: Ketorolac 0.5% OPHTH (NF) 0.5 % 5 ML BTL BOTH EYES SCH ×2 (08:34→20:14)
[2022-05-09] MEDS: Polymyx/Trimethoprim OPTH.SOL 1 BTL BOTH EYES SCH ×4 (08:34→20:14)
[2022-05-09] MEDS: Fluticasone NASAL SPRAY 50MCG 16 gm SPRAY BTL BOTH NARES SCH (08:35)
[2022-05-09] MEDS: Nystatin TOP POWDER 15 GM BTL TOPICAL SCH ×2 (09:59→20:14)
[2022-05-10] MEDS: Ondansetron 4 mg VIAL 2 MG/ML 2 ml VIAL IV PRN ×2 (00:43→08:40)
[2022-05-10] MEDS: Sucralfate 1 gm SUSP 1 GM/10 ML UDC PO SCH ×2 (08:12→12:47)
[2022-05-10] MEDS: Pantoprazole VIAL 40 MG VIAL IV SCH (08:16)
[2022-05-10] MEDS: Fluticasone NASAL SPRAY 50MCG 16 gm SPRAY BTL BOTH NARES SCH (08:16)
[2022-05-10] MEDS: Ketorolac 0.5% OPHTH (NF) 0.5 % 5 ML BTL BOTH EYES SCH (08:19)
[2022-05-10] MEDS: Polymyx/Trimethoprim OPTH.SOL 1 BTL BOTH EYES SCH (08:19)
[2022-05-10] MEDS: Nystatin TOP POWDER 15 GM BTL TOPICAL SCH (08:20)
[2022-05-10 12:45] VITALS: BP 146/82
== END 2022-05-10 14:20 | DRG 640 ==
LOC: ED 19:48 → SUATTDRO 05-06 12:51 → EDHOLD 05-06 12:51 → MED 05-06 17:27
PROVIDERS: ADMIT Internal Medicine; ATTEND Hospitalist

== ENCOUNTER 2023-07-10 05:33 | Inpatient (IN) ==
[2023-07-10] MEDS ORDERED: Acetaminophen IV 1 GM/100ML 1,000 MG/100 ML BAG IV ONE (05:41)
[2023-07-10] MEDS ORDERED: Ondansetron 4 mg VIAL 2 MG/ML 2 ml VIAL IV ONE (05:55)
[2023-07-10 06:03] LABS: ABS Basophils 0.1 10^3/uL (0.0-0.1); ABS Eosinophils 0.2 10^3/uL (0.0-0.5); ABS Lymphocytes 2.3 10^3/uL (1.0-4.8); ABS Monocytes 0.7 10^3/uL (0.0-0.9); ABS Neutrophils 4.6 10^3/uL (1.5-7.6); ABS Nucleated RBC 0.01 10^3/ul; Eosinophil % 2.3 %; Hematocrit 39.3 % (35-45); Hemoglobin 13.4 g/dL (11.5-14.3); Lymphocyte % 28.9 %; Mean Corpuscular Hemoglobin 27.5 pg (27-33); Mean Corpuscular Volume 80.9 fL (80-97); Mean Platelet Volume 8.5 fL (7.5-11.2); Nucleated Red Blood Cells % 0.1 %/100WBC (0.0-0.8); Platelet Count 271 10^3/uL (150-450); Red Blood Count 4.86 10^6/uL (3.63-4.92); Red Cell Distribution Width 16.1 % (12-17); White Blood Count 7.8 10^3/uL (3.8-11.8)
[2023-07-10 06:17] LABS: INR 1.17 (0.83-1.13)
[2023-07-10 06:21] LABS: Albumin 4.3 g/dL (3.2-5.2); Albumin/Globulin Ratio 1.2 (1-3); Calcium 9.3 mg/dL (8.6-10.3); Creatinine, Serum 0.84 mg/dL (0.51-0.95); Globulin 3.6 g/dL (2-4); Potassium 3.5 mmol/L (3.5-5.0); Total Bilirubin 0.4 mg/dL (0.2-1.0); Total Protein 7.9 g/dL (6.4-8.9); eGFR CKD-EPI 68.9 (>60)
[2023-07-10] MEDS ORDERED: fentaNYL 100 mcg/2 ml 50 MCG/ML VIAL IV SLOW PU ONE (06:59)
[2023-07-10] MEDS ORDERED: HYDROmorphone 0.5 MG/0.5 ML SYRINGE IV PRN (07:53)
[2023-07-10] MEDS ORDERED: Senna TAB 8.6 mg TAB PO PRN (08:35)
[2023-07-10] MEDS ORDERED: Polyethylene Glycol 3350 17 GM PACKET PO PRN (08:35)
[2023-07-10] MEDS ORDERED: Docusate LIQ 100 MG/10 ML UDC PO PRN (08:42)
[2023-07-10] MEDS ORDERED: Potassium Chlor 20 meq TAB.ER PO ONE (09:09)
[2023-07-10] MEDS: fentaNYL PATCH 12 MCG/HR 1 PATCH TRANSDERM SCH (10:07)
[2023-07-10] MEDS: Silodosin 8 mg CAP (NF) PO SCH (10:21)
[2023-07-10 11:19] LABS: Urine Appearance Cloudy; Urine Bilirubin Negative (Negative); Urine Blood 1+ (Negative); Urine Color Yellow; Urine Glucose Negative (Negative); Urine Ketones Negative (Negative); Urine Nitrite Negative (Negative); Urine Protein Negative (Negative); Urine Specific Gravity 1.011 (1.002-1.030); Urine Urobilinogen Negative (Negative)
[2023-07-10 11:29] LABS: Urine Bacteria Absent (Absent); Urine Red Blood Cell 3+(>10/hpf) (Absent); Urine White Blood Cell 3+(>20/hpf) (Absent)
[2023-07-10] MEDS: HYDROmorphone 1 MG/1 ML SYRINGE IV PRN ×2 (12:06→18:05)
[2023-07-10] MEDS: Sucralfate 1 gm SUSP 1 GM/10 ML UDC PO SCH ×3 (12:08→21:07)
[2023-07-10] MEDS: Acetaminophen IV 1 GM/100ML 1,000 MG/100 ML BAG IV PRN (15:37)
[2023-07-10] MEDS: fentaNYL Patch Check Q Shift NOTE FOLLOW UP SCH (19:05)
[2023-07-11] MEDS: HYDROmorphone 1 MG/1 ML SYRINGE IV PRN ×3 (05:10→22:03)
[2023-07-11] MEDS: Acetaminophen IV 1 GM/100ML 1,000 MG/100 ML BAG IV PRN ×2 (06:14→17:46)
[2023-07-11] MEDS: Levothyroxine 100 MCG/5 ML VIAL IV SCH (06:46)
[2023-07-11] MEDS: fentaNYL Patch Check Q Shift NOTE FOLLOW UP SCH ×2 (07:03→19:41)
[2023-07-11] MEDS: Sucralfate 1 gm SUSP 1 GM/10 ML UDC PO SCH ×4 (07:39→20:15)
[2023-07-11] MEDS ORDERED: cefTRIAXone 1 GM ONETIME (ADVAN) IVPB SCH (09:00)
[2023-07-11] MEDS: Silodosin 8 mg CAP (NF) PO SCH (12:23)
[2023-07-11] MEDS ORDERED: cefTRIAXone 1 gm/50 mL D5W 1 GM/50 ML BAG IV SCH (14:00)
[2023-07-11] MEDS: cefTRIAXone 1 GM ONETIME (ADVAN) IVPB SCH (16:09)
[2023-07-12] MEDS: Levothyroxine 100 MCG/5 ML VIAL IV SCH (05:59)
[2023-07-12 06:35] LABS: Hematocrit 35.8 % (35-45); Hemoglobin 11.6 g/dL (11.5-14.3); Mean Corpuscular Hemoglobin 26.6 pg (27-33); Mean Corpuscular Hgb Conc 32.4 g/dL (31-36); Mean Platelet Volume 8.9 fL (7.5-11.2); Platelet Count 200 10^3/uL (150-450); Red Blood Count 4.37 10^6/uL (3.63-4.92); Red Cell Distribution Width 16.1 % (12-17); White Blood Count 13.8 10^3/uL (3.8-11.8)
[2023-07-12 06:39] LABS: Creatinine, Serum 1.08 mg/dL (0.51-0.95); Magnesium 2.1 mg/dL (1.9-2.7); Potassium 4.6 mmol/L (3.5-5.0)
[2023-07-12 06:55] LABS: ABS Basophils 0.1 10^3/uL (0.0-0.1); ABS Eosinophils 0.2 10^3/uL (0.0-0.5); ABS Lymphocytes 2.3 10^3/uL (1.0-4.8); ABS Monocytes 2.2 10^3/uL (0.0-0.9); ABS Neutrophils 9.1 10^3/uL (1.5-7.6); ABS Nucleated RBC 0.01 10^3/ul; Eosinophil % 1.2 %; Lymphocyte % 16.7 %; Nucleated Red Blood Cells % 0.1 %/100WBC (0.0-0.8)
[2023-07-12] MEDS: fentaNYL Patch Check Q Shift NOTE FOLLOW UP SCH ×2 (06:56→19:03)
[2023-07-12] MEDS: HYDROmorphone 1 MG/1 ML SYRINGE IV PRN (07:53)
[2023-07-12] MEDS: Sucralfate 1 gm SUSP 1 GM/10 ML UDC PO SCH ×4 (08:53→19:43)
[2023-07-12] MEDS: Silodosin 8 mg CAP (NF) PO SCH (08:54)
[2023-07-12 11:24] LABS: Activated Partial Thrombo Time 33.4 seconds (26.0-38.0); INR 1.28 (0.83-1.13)
[2023-07-12] MEDS ORDERED: ceFAZolin 2 GM in NS PREMIX 2 GM/100 ML BAG IVPB ONE (14:35)
[2023-07-12] MEDS ORDERED: Bupivacaine 0.5% 50 ML MDV VIAL ONE (15:09)
[2023-07-12] MEDS ORDERED: Naloxone Nasal Spray 4 MG/0.1 ML NASAL.SPR INTRANASAL PRN (15:14)
[2023-07-12] MEDS ORDERED: Magnesium Hydroxide LIQ 30 ML UDC PO PRN ×2 (15:14→18:18)
[2023-07-12] MEDS ORDERED: Lidocaine 2% PF 5 ML VIAL ONE (15:19)
[2023-07-12] MEDS ORDERED: Propofol 10 MG/ML 20 ML BTL ONE (15:19)
[2023-07-12] MEDS ORDERED: Naloxone 0.4 mg VIAL 0.4 mg/ml 1 ml VIAL IV PRN (15:43)
[2023-07-12] MEDS ORDERED: HYDROmorphone 1 MG/1 ML SYRINGE IV PRN (15:43)
[2023-07-12] MEDS ORDERED: fentaNYL 100 mcg/2 ml 50 MCG/ML VIAL ONE ×2 (16:21→17:13)
[2023-07-12] MEDS ORDERED: Dexamethasone IV 4 MG/ML VIAL 1 ml VIAL ONE (17:07)
[2023-07-12] MEDS ORDERED: Ondansetron 4 mg VIAL 2 MG/ML 2 ml VIAL ONE (17:07)
[2023-07-12] MEDS: fentaNYL 100 mcg/2 ml 50 MCG/ML VIAL IV PRN ×4 (17:16→17:34)
[2023-07-12 17:44] LABS: Hematocrit 34.6 % (35-45); Hemoglobin 11.1 g/dL (11.5-14.3)
[2023-07-12] MEDS ORDERED: Lactulose 30 ml UDC PO PRN (18:18)
[2023-07-12] MEDS ORDERED: Senna TAB 8.6 mg TAB PO PRN (18:18)
[2023-07-12] MEDS: cefTRIAXone 1 GM ONETIME (ADVAN) IVPB SCH (18:20)
[2023-07-12] MEDS: Polymyx/Trimethoprim OPTH.SOL 1 BTL LEFT EYE SCH ×2 (18:28→19:44)
[2023-07-12] MEDS: Lactated Ringers 1000 ml BAG 1,000 ML IV SCH (18:47)
[2023-07-12] MEDS: Magnesium Hydroxide LIQ 30 ML UDC PO SCH (19:43)
[2023-07-12] MEDS: ceFAZolin 1 GM ADVAN 1 GM in NS 0.9% 50 ML 50 ML IVPB SCH (23:38)
[2023-07-13] MEDS: Acetaminophen IV 1 GM/100ML 1,000 MG/100 ML BAG IV PRN ×2 (00:44→17:59)
[2023-07-13] MEDS: HYDROmorphone 1 MG/1 ML SYRINGE IV PRN ×3 (00:46→15:17)
[2023-07-13] MEDS: Lactated Ringers 1000 ml BAG 1,000 ML IV SCH ×2 (04:45→15:23)
[2023-07-13] MEDS: Levothyroxine 100 MCG/5 ML VIAL IV SCH (05:55)
[2023-07-13 06:01] LABS: Hematocrit 27.4 % (35-45); Hemoglobin 9.2 g/dL (11.5-14.3); Mean Platelet Volume 8.8 fL (7.5-11.2); Platelet Count 208 10^3/uL (150-450)
[2023-07-13] MEDS: fentaNYL Patch Check Q Shift NOTE FOLLOW UP SCH ×2 (07:00→18:47)
[2023-07-13 07:07] LABS: Calcium 8.4 mg/dL (8.6-10.3); Creatinine, Serum 0.88 mg/dL (0.51-0.95); Potassium 4.7 mmol/L (3.5-5.0); eGFR CKD-EPI 65.2 (>60)
[2023-07-13] MEDS: Sucralfate 1 gm SUSP 1 GM/10 ML UDC PO SCH ×4 (08:51→19:41)
[2023-07-13] MEDS: ceFAZolin 1 GM ADVAN 1 GM in NS 0.9% 50 ML 50 ML IVPB SCH ×2 (09:15→16:12)
[2023-07-13] MEDS: Polyethylene Glycol 3350 17 GM PACKET PO SCH (09:17)
[2023-07-13] MEDS: Polymyx/Trimethoprim OPTH.SOL 1 BTL LEFT EYE SCH ×4 (09:24→19:41)
[2023-07-13] MEDS: fentaNYL PATCH 12 MCG/HR 1 PATCH TRANSDERM SCH (09:35)
[2023-07-13] MEDS: Magnesium Hydroxide LIQ 30 ML UDC PO SCH ×2 (09:43→19:41)
[2023-07-13] MEDS: Silodosin 8 mg CAP (NF) PO SCH (09:43)
[2023-07-13] MEDS: cefTRIAXone 1 GM ONETIME (ADVAN) IVPB SCH (15:21)
[2023-07-14] MEDS: Levothyroxine 100 MCG/5 ML VIAL IV SCH (05:44)
[2023-07-14 06:11] VITALS: BP 154/97
[2023-07-14 06:14] LABS: Platelet Count 238 10^3/uL (150-450)
[2023-07-14 06:15] LABS: Calcium 8.3 mg/dL (8.6-10.3); Creatinine, Serum 0.69 mg/dL (0.51-0.95); Magnesium 2.1 mg/dL (1.9-2.7); Potassium 4.3 mmol/L (3.5-5.0); eGFR CKD-EPI 86.1 (>60)
[2023-07-14 06:38] LABS: Hematocrit 22.6 % (35-45); Hemoglobin 7.7 g/dL (11.5-14.3); Mean Platelet Volume 9.1 fL (7.5-11.2)
[2023-07-14] MEDS: fentaNYL Patch Check Q Shift NOTE FOLLOW UP SCH (06:51)
[2023-07-14] MEDS: Sucralfate 1 gm SUSP 1 GM/10 ML UDC PO SCH (09:29)
[2023-07-14] MEDS: Magnesium Hydroxide LIQ 30 ML UDC PO SCH (09:29)
[2023-07-14] MEDS: Polymyx/Trimethoprim OPTH.SOL 1 BTL LEFT EYE SCH (09:30)
[2023-07-14] MEDS: Polyethylene Glycol 3350 17 GM PACKET PO SCH (09:31)
[2023-07-14] MEDS: Silodosin 8 mg CAP (NF) PO SCH (09:31)
[2023-07-14 09:32] LABS: Rapid COVID-19 Molecular Undetected (Undetected)
[2023-07-14] MEDS ORDERED: cefTRIAXone 1 gm/50 mL D5W 1 GM/50 ML BAG IV SCH (15:00)
== END 2023-07-14 11:00 | DRG 481 ==
LOC: ED 05:33 → SUATTDRO 07:48 → EDHOLD 07:48 → SSU 08:27
PROVIDERS: ADMIT Hospitalist; ATTEND Student in an Organized Health Care Education/Training Program